=== PATIENT | male | born 1935 | race Asian ===

== ENCOUNTER 2016-08-05 12:38 | Inpatient (IN) | payer OTHER ==
--- NOTE | 2016-08-05 12:44 | PDOC ---
History of Present Illness - General History Source: Patient Exam Limitations: No Limitations - History of Present Illness Initial Comments: 08/05/16 14:58 The patient is a 80-year-old male, with a significant past medical history of s/ p TURP, who presents to the emergency department with abdominal pain, shortness of breath, and s/p syncope. The patient reports that the abdominal pain radiates to the chest. He describes the abdominal pain as something pushing up against his chest. He reports pain with deep inspiration accompanying his shortness of breath. He reports loss of consciousness associated with his syncopal episode. He also reports generalized weakness, chills, nausea, and rhinorrhea. He reports he has not urinated since the catheter was removed s/p TURP. He states he has not had a bowel movement for multiple days. The patient denies palpitations and headache. The patient denies fever, chills, nausea, vomit, diarrhea and constipation. The patient denies leg pain. Allergies: NKDA Past surgical history: TURP (under general anesthesia) 2017, CABG 2008 Social history: Denies smoking, ETOH, or substance use. PMD - Dr. Albin Huitron <Lulu Quiles - Last Filed: 08/05/16 14:58> <Prince Sylvester - Last Filed: 08/05/16 18:12> - General Stated Complaint: ABD PAIN Past History <Lulu Quiles - Last Filed: 08/05/16 14:58> <Prince Sylvester - Last Filed: 08/05/16 18:12> - Past Medical History Allergies/Adverse Reactions: Allergies Allergy/AdvReac Type Severity Reaction Status Date / Time No Known Allergies Allergy Verified 08/05/16 12:46 Home Medications: Ambulatory Orders Unobtainable [Unobtainable] 08/05/16 Review of Systems - Review of Systems Able to Perform ROS?: Yes Comments:: 08/05/16 14:59 CONSTITUTIONAL: Present: (+) generalized weakness, (+) chills Absent: fever, diaphoresis, malaise, loss of appetite HEENT: Present:(+) rhinorrhea Absent: nasal congestion, throat pain, throat swelling, difficulty swallowing, mouth swelling, ear pain, eye pain, visual changes CARDIOVASCULAR: Present: (+) syncope Absent: chest pain, palpitations, irregular heart rate, lightheadedness, peripheral edema RESPIRATORY: Present: (+) shortness of breath Absent: cough, dyspnea with exertion, orthopnea, wheezing, stridor, hemoptysis GASTROINTESTINAL: Present:(+)abdominal pain, (+)nausea Absent: abdominal distension, vomiting, diarrhea, constipation, melena, hematochezia GENITOURINARY: Absent: dysuria, frequency, urgency, hesitancy, hematuria, flank pain, genital pain MUSCULOSKELETAL: Absent: myalgia, arthralgia, joint swelling SKIN: Absent: rash, itching, pallor HEMATOLOGIC/IMMUNOLOGIC: Absent: easy bleeding, easy bruising, lymphadenopathy, frequent infections ENDOCRINE: Absent: unexplained weight gain, unexplained weight loss, heat intolerance, cold intolerance NEUROLOGIC: Absent: headache, focal weakness or paresthesias, dizziness, unsteady gait, seizure, bladder or bowel incontinence PSYCHIATRIC: Absent: anxiety, depression, suicidal or homicidal ideation, hallucinations. <QuilesLulu - Last Filed: 08/05/16 14:58> *Physical Exam - Vital Signs Last Vital Signs Temp Pulse Resp BP Pulse Ox 100 F H 74 20 148/62 100 08/05/16 12:43 08/05/16 12:43 08/05/16 12:43 08/05/16 12:43 08/05/16 12:58 - Physical Exam Comments: 08/05/16 14:59 GENERAL: Well developed, well nourished. Awake and alert. In no acute distress. HEENT: Normocephalic, atraumatic. PERRLA, EOMI. No conjunctival pallor. Sclera are non- icteric. Moist mucous membranes. Oropharynx is clear. NECK: Supple. Full ROM. No JVD. Carotid pulses 2+ and symmetric, without bruits. No thyromegaly. No lymphadenopathy. CARDIOVASCULAR: Regular rate and rhythm. No murmurs, rubs, or gallops. Distal pulses are 2+ and symmetric. PULMONARY: (+)Rales bilaterally. No wheezing or rhonchi. ABDOMINAL: (+) Some bladder distension up to the umbilicus. Soft. Non-tender. No rebound or guarding. No organomegaly. Normoactive bowel sounds. MUSCULOSKELETAL Normal range of motion at all joints. No bony deformities or tenderness. No CVA tenderness. EXTREMITIES: (+) No clinical DVT in legs. No redness, cords, asymmetry. No cyanosis. No clubbing. No peripheral edema. No calf tenderness. SKIN: Warm and dry. Normal capillary refill. No rashes. No jaundice. NEUROLOGICAL: Alert, awake, appropriate. Cranial nerves 2-12 intact. No deficits to light touch and temperature in face, upper extremities and lower extremities. No motor deficits in the in face, upper extremities and lower extremities. Normoreflexic in the upper and lower extremities. Normal speech. Toes are downgoing bilaterally. Gait is normal without ataxia. PSYCHIATRIC: Cooperative. Good eye contact. Appropriate mood and affect. <Gaby Quilesnda - Last Filed: 08/05/16 14:58> ED Treatment Course - LABORATORY CBC & Chemistry Diagram: 08/05/16 13:30 08/05/16 13:30 - ADDITIONAL ORDERS Additional order review: Laboratory Results 08/05/16 08/05/16 13:30 13:30 D-Dimer 565 H Sodium 135 L Potassium 4.2 Chloride 98 Carbon Dioxide 24 Anion Gap 13 BUN 29 H Creatinine 2.0 H Creat Clearance w eGFR 32.23 Random Glucose 321 H* Calcium 7.9 L Total Bilirubin 0.7 AST 25 ALT 27 Alkaline Phosphatase 172 H Creatine Kinase 104 Troponin I 0.05 B-Natriuretic Peptide 76727.21 H Total Protein 6.1 L Albumin 2.8 L 08/05/16 13:30 RBC 3.38 L MCV 93.3 MCHC 33.2 RDW 13.2 MPV 9.5 Neutrophils % 85.8 H Lymphocytes % 7.8 L Monocytes % 5.4 Eosinophils % 0.3 Basophils % 0.7 - RADIOLOGY Radiograph Interpretation: 08/05/16 15:06 RAD/CHEST X-RAY PORTABLE Reviewed by: Dr. Prince Sylvester Interpreted by: Dr. Orin Del Cid IMPRESSION: Right lower lobe infiltrate and pleural effusion. Mild increased density in the left lower lobe whihc may reflect infiltrate. - Medications Given in the ED: ED Medications Discontinued Medications Generic Name Dose Route Start Last Admin Trade Name Freq PRN Reason Stop Dose Admin Acetaminophen 650 mg 08/05/16 13:39 08/05/16 13:40 Tylenol - PO 08/05/16 13:40 650 mg NOW ONE Administration <Gaby Quilesnda - Last Filed: 08/05/16 14:58> - LABORATORY CBC & Chemistry Diagram: 08/05/16 13:30 08/05/16 13:30 <Prince Sylvester - Last Filed: 08/05/16 18:12> *DC/Admit/Observation/Transfer - Attestations Scribe Attestion: 08/05/16 15:00 Documentation prepared by Lulu Quiles, acting as medical imaging specialist for Prince Sylvester MD. <Lulu Quiles - Last Filed: 08/05/16 14:58> - Discharge Dispostion Admit: Yes <Prince Sylvester - Last Filed: 08/05/16 18:12> Diagnosis at time of Disposition: Pulmonary embolism, UTI (urinary tract infection), Pneumonia - Discharge Dispostion Condition at time of disposition: Stable - Referrals Referrals: Albin Huitron MD, MD [Primary Care Provider] -
[2016-08-05 12:46] VITALS: BMI 29.0
[2016-08-05] MEDS ORDERED: ACETAMINOPHEN 325 MG TABLET (FP) ONE (13:24)
[2016-08-05] MEDS ORDERED: ACETAMINOPHEN 325 MG TABLET (FP) PO ONE (13:39)
[2016-08-05 13:46] LABS: BASOPHIL 0.7 % (0-2.0); EOSINOPHIL 0.3 % (0-4.5); MCH 30.9 pg (25.7-33.7); MCHC 33.2 g/dl (32.0-35.9); MEAN CELL VOLUME 93.3 fl (80-96); MEAN PLT VOLUME 9.5 fl (7.5-11.1); NEUTROPHILS 85.8 % (42.8-82.8); PLATELET COUNT 254 K/MM3 (134-434); RDW 13.2 % (11.9-15.9); WHITE BLOOD COUNT 14.3 K/mm3 (4.0-10.0)
[2016-08-05 14:05] LABS: ALBUMIN 2.8 g/dl (3.4-5.0); BILIRUBIN,TOTAL 0.7 mg/dL (0.2-1.0); CALCIUM 7.9 mg/dL (8.5-10.1); TOT PROT 6.1 g/dl (6.4-8.2)
[2016-08-05 14:07] LABS: TROPONIN I 0.05 ng/ml (0.00-0.05)
[2016-08-05] MEDS ORDERED: CEFTRIAXONE 1,000 MG in DEXTROSE 5%-WATER - 50 ML IVPB ONE (14:35)
[2016-08-05] MEDS ORDERED: AZITHROMYCIN IVPB 500 MG in DEXTROSE 5%-WATER - 250 ML IVPB ONE (14:35)
[2016-08-05] MEDS ORDERED: AZITHROMYCIN IVPB 250 ML IVPB ONE (14:50)
[2016-08-05] MEDS ORDERED: CEFTRIAXONE 50 ML ONE (14:50)
[2016-08-05 15:21] LABS: URINE APPEARANCE SLCLOUDY; URINE BILIRUBIN NEGATIVE (NEGATIVE); URINE BLOOD 3+ (NEGATIVE); URINE COLOR DKYELLOW; URINE GLUCOSE (UA) 3+ (NEGATIVE); URINE KETONE NEGATIVE (NEGATIVE); URINE LEUK ESTERASE 3+ (NEGATIVE); URINE NITRITE NEGATIVE (NEGATIVE); URINE PROTEIN 2+ (NEGATIVE); URINE UROBILINOGEN 4.0 E.U/dl E.U./dl (0.2-1.0)
[2016-08-05 15:28] LABS: URINE HYALINE CAST 27 /lpf; URINE RBC 876 /hpf (0-3); URINE WBC 225 /hpf (3-5)
[2016-08-05] MEDS ORDERED: ENOXAPARIN NA (PORCINE) 80 MG/0.8 ML DISP.SYRIN SQ SCH (18:15)
[2016-08-05] MEDS ORDERED: ENOXAPARIN NA (PORCINE) 80 MG/0.8 ML DISP.SYRIN SQ ONE (18:19)
--- NOTE | 2016-08-05 19:33 | PN ---
<RadhikaTyreeTeresa - Last Filed: 08/05/16 19:32> Teaching Attending Note Name of Resident: Kassandra Crawley <Clara Kirby - Last Filed: 08/05/16 22:22> Teaching Attending Note ATTENDING PHYSICIAN STATEMENT I saw and evaluated the patient. I reviewed the resident's note and discussed the case with the resident. I agree with the resident's findings and plan as documented. SUBJECTIVE: Patient is a 80 year old male complaining of abdominal pain, SOB, and syncope. The patient reports the abdominal pain is localized to the epigastric region and radiates toward the chest. He also notes associated orthopnea. The patient also notes pain upon deep inspiration. He reports LOC associated with syncopal episode but denies any head or neck pain/injury. He states that he hasnt urinated since his catheter was removed s/p TURP. The patient states that his belly feels bloated and he has been gaseous recently. Patient endorses constipation for the past 6 days with generalized weakness, chills and nausea. The patient denies lower extremity edema. PMHx: diabetes Surgical Hx: s/p TURP, CABG Social Hx: Former heavy smoker OBJECTIVE: Physical: Last Vital Signs Temp Pulse Resp BP Pulse Ox 100 F H 74 20 148/62 100 08/05/16 12:43 08/05/16 12:43 08/05/16 12:43 08/05/16 12:43 08/05/16 12:58 GENERAL: Awake, alert, and fully oriented, in no acute distress HEENT: Atraumatic. PERRLA, EOMI. Moist mucosa. No JVD LUNGS: + bibasal crackles. No distress, speaks full sentences, clear to auscultation bilaterally HEART: Regular rate and rhythm, normal S1 and S2, no murmurs, rubs or gallops, peripheral pulses normal and equal bilaterally. ABDOMEN: Soft, nontender, normoactive bowel sounds. No guarding, no rebound. No masses. No ascites. EXTREMITIES: Normal inspection, Normal range of motion, no peripheral edema. No clubbing or cyanosis. NEUROLOGICAL: Cranial nerves II through XII grossly intact. Normal speech, normal gait, no focal sensorimotor deficits SKIN: Warm, Dry, normal turgor, no rashes or lesions noted. CBCD WBC 14.3 K/mm3 (4.0-10.0) H 08/05/16 13:30 RBC 3.38 M/mm3 (4.00-5.60) L 08/05/16 13:30 Hgb 10.5 GM/dL (11.7-16.9) L 08/05/16 13:30 Hct 31.5 % (35.4-49) L 08/05/16 13:30 MCV 93.3 fl (80-96) 08/05/16 13:30 MCHC 33.2 g/dl (32.0-35.9) 08/05/16 13:30 RDW 13.2 % (11.9-15.9) 08/05/16 13:30 Plt Count 254 K/MM3 (134-434) 08/05/16 13:30 MPV 9.5 fl (7.5-11.1) 08/05/16 13:30 CMP Sodium 135 mmol/L (136-145) L 08/05/16 13:30 Potassium 4.2 mmol/L (3.5-5.1) 08/05/16 13:30 Chloride 98 mmol/L (98-107) 08/05/16 13:30 Carbon Dioxide 24 mmol/L (21-32) 08/05/16 13:30 Anion Gap 13 (8-16) 08/05/16 13:30 BUN 29 mg/dL (7-18) H 08/05/16 13:30 Creatinine 2.0 mg/dL (0.7-1.3) H 08/05/16 13:30 Creat Clearance w eGFR 32.23 (>60) 08/05/16 13:30 Calcium 7.9 mg/dL (8.5-10.1) L 08/05/16 13:30 Total Bilirubin 0.7 mg/dL (0.2-1.0) 08/05/16 13:30 AST 25 U/L (15-37) 08/05/16 13:30 ALT 27 U/L (12-78) 08/05/16 13:30 Alkaline Phosphatase 172 U/L (45-117) H 08/05/16 13:30 Total Protein 6.1 g/dl (6.4-8.2) L 08/05/16 13:30 Albumin 2.8 g/dl (3.4-5.0) L 08/05/16 13:30 IMAGING: Chest X-Ray Impression: Right lower lobe infiltrate and pleural effusion. Mild increased density in the left lower lobe which may reflect infiltrate. ASSESSMENT AND PLAN: Patient is a 80 year old male presenting with 1.) Syncopal episode r/o vasovagal vs arrhythmia - Admitted to Tele - Continue cardiac monitoring - Orthostatic 2.) Newly diagnosed CHF with decompensation, possible cardiorenal -Lasix 40 mg IV push BID -Echo -Cardiology consult -Get lipids -Trend troponins -Monitor Is and Os 3.) UTI s/p TURP -Ceftriaxone -Repeat CBC in AM -Tylenol pPRN for fever -Follow urine cultures 4.) Community acquired pneumonia -Continue ceftriaxone -Add azithromycin -Nebulizations Q6 hrs -O2 2 L via nasal cannula -Follow blood cultures 5.) Diabetes -ADA diet -Continue lantix 40 units QHS -RISS 6.) BPH -Continue flomax .4 mg daily Documentation prepared by Clara Kirby, acting as claim review medical director for Teresa Garrido MD.
--- NOTE | 2016-08-05 22:04 | HP ---
Addendum entered and electronically signed by Kassandra Crawley, RES 08/06/16 07 :12: Added patients home med Amiodarone 200mg PO Daily. Discussed with Dr. Garrido. Original Note: CHIEF COMPLAINT: SOB x 1 day PCP: Dr. Lelo Dunn (Extension Associate [phone]) HISTORY OF PRESENT ILLNESS: 80 year old male was brought in by the EMS with the complaints of difficulty in breathing x 1 day. SOB started suddenly, was progressively getting worse, associated with chest discomfort but no pain, aggravated by sleeping towards the right side, relieved by sitting up. Dry cough on/off. Denies palpitation. Patient had TURP done [address] Daniels at the outpatient clinic under General anesthesia. After the procedure, on the way home, he started feeling cold associated with chills and shivering, high grade temperature (not recorded) , took 2 tylenol, lots of fluids and fever subsided. Today, patient went to the clinic for removal of catheter. After reaching home, started having SOB and called 911. Denies urinary symptoms like burning urination, urgency, frequency or incontinence. Patient also complaints of not moving bowels since 6 days, bloating of abdomen, abdominal discomfort. Also feeling weak and tired. Denies abdominal pain, nausea or vomiting. Patient states he had two of his tooth extracted on the June,. Since then he has been only eating mostly puree/thick food. No h/o recent travel or sick contacts. 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 please confirm with the pharmacy 1. Aspirin 81mg 2. Omeprazole 20mg Daily 3. Tamsulocin 4mg Daily 4. Amiodarone 200mg Daily 5. Carbamazepine Stopped last month 6. Lantus 40U Medication Instructions Recorded Unobtainable [Unobtainable] 08/05/16 REVIEW OF SYSTEMS CONSTITUTIONAL: Present: Fever , generalized weakness Absent: fever, chills, diaphoresis, malaise, loss of appetite, weight change HEENT: Absent: rhinorrhea, nasal congestion, throat pain, throat swelling, difficulty swallowing, mouth swelling, ear pain, eye pain, visual changes CARDIOVASCULAR: Absent: chest pain, syncope, palpitations, irregular heart rate, lightheadedness , peripheral edema RESPIRATORY: Present: shortness of breath Absent: cough, dyspnea with exertion, orthopnea, wheezing, stridor, hemoptysis GASTROINTESTINAL: Present: abdominal distension, abdominal discomfort Absent: abdominal pain, nausea, vomiting, diarrhea, constipation, melena, hematochezia GENITOURINARY: Absent: dysuria, frequency, urgency, hesitancy, hematuria, flank pain, genital pain MUSCULOSKELETAL: Absent: myalgia, arthralgia, joint swelling, back pain, neck pain SKIN: Absent: rash, itching, pallor HEMATOLOGIC/IMMUNOLOGIC: Absent: easy bleeding, easy bruising, lymphadenopathy, frequent infections ENDOCRINE: Absent: unexplained weight gain, unexplained weight loss, heat intolerance, cold intolerance NEUROLOGIC: Absent: headache, focal weakness or paresthesias, dizziness, unsteady gait, seizure, mental status changes, bladder or bowel incontinence PSYCHIATRIC: Absent: anxiety, depression, suicidal or homicidal ideation, hallucinations. PHYSICAL EXAMINATION Vital Signs - 24 hr 08/05/16 19:41 Temperature 98.3 F Pulse Rate [ 87 Left Radial] Respiratory 20 Rate Blood Pressure 135/80 [Left Arm] O2 Sat by Pulse 98 Oximetry (%) GENERAL: Patient lying comfortably in bed, Awake, alert, and fully oriented, in no acute distress. HEAD: Normal with no signs of trauma. EYES: EOM intact, mild icterus +, no pallor EARS, NOSE, THROAT: Ears normal, Moist mucous membranes. NECK: Supple, no mass. LUNGS: Breath sounds equal, bibasilar crackles +, no wheeze. HEART: Regular rate and rhythm, normal S1 and S2 without murmur. ABDOMEN: Soft, nontender, not distended, normoactive bowel sounds, no guarding, no rebound, no masses. No hepatomegaly or splenomegaly. MUSCULOSKELETAL: Normal range of motion at all joints. No bony deformities or tenderness. No CVA tenderness. UPPER EXTREMITIES: 2+ pulses, warm, well-perfused. No cyanosis. No clubbing. No peripheral edema. LOWER EXTREMITIES: 2+ pulses, warm, well-perfused. No calf tenderness. No peripheral edema. NEUROLOGICAL: Cranial nerves II-XII intact. Normal speech. Gait not observed. PSYCHIATRIC: Cooperative. Good eye contact. Appropriate mood and affect. SKIN: Looks yellowish, Warm, dry, normal turgor, no rashes or lesions noted. CXR 08/05/2016: Right lower lobe infiltrate and pleural effusion. Mild increased density in the left lower lobe which may reflect infiltrate. ASSESSMENT/PLAN: 80 year old male with significant PMHx of BPH s/p TURP, 08/03/2016, DM II, CAD s/ p CABG 2 stents, peripheral neuropathy, arrhythmia (unknown) s/p B/L cataract removal was brought in by the EMS with the complaints of difficulty in breathing x 1 day. # Shortenss of breath- most likely Community Acquired Pneumonia 2days H/O fever (not recorded), rigors+ cough on/off dry On admission T-100F, sat-96 on RA CXR report showing RLL/LLL infiltrate with Right lower pleural effusion In the ED, was given Tylenol, Ceftriaxone 1gm, Azithromycin, Enoxaparin. Enoxaparin was started with the suspicion of Pulmonary Embolism. Although D-dimer is elevated, Pulmonary Embolism less likely. Patient has normal HR, EKG: No sinus tachycardia, No S1Q3T3 pattern. CTA to R/O pulmonary embolism cannot be done since his creatinine is 2.0, Started on IV Ceftriaxone 1gm and Azithromycin 500mg PO Repeat CBC, CMP, CXR ordered for tomorrow Urine/Blood culture pending Nasal Oxygen PRN Nasopharyngeal swab for influenza ordered, please f/up # Acute Kidney Injury vs CHF On admission, patients creatinine is 2.0, do not know his baseline Echo ordered to r/o CHF BNP 63338.21 Corrected Calcium 8.86 Repeat CMP Avoid Nephrotoxic drugs # Asymptomatic Urinary Tract Infection No urinary symptoms UA: 3+ blood, RBC 876, WBC-225 H/O recent TURP # Diabetes Mellitus On admission, RBG-321 Lantus 40U continued. Insulin sliding scale added. HbA1c ordered Diabetic diet/counseling Monitor for hypoglycemic symptoms # Peripheral Neuropathy Patient mentioned he was taking Carbamazipine until one month ago then stopped by the doctor # Arrhythmia Patient taking amiodarone 200mg, for missed beat as per the patient Please confirm with the pharmacy tomorrow. Will not start amiodarone until confirmed with the primary doctor or the pharmacy. # BPH s/p TURP Catheter removed today, no urinary symptoms Continue Flomax 0.4mg Daily Monitor urine output. # CAD s/p CABG x 2 stents Aspirin 81mg continued Consider adding statins # Constipation Hasn't moved bowel since 6days; has abdominal discomfort and bloating Colace and Senna ordered. # FEN Not on IV fluids Electrolytes to be repeated tomorrow Diabetic/Sodium controlled diet # Prophylaxis For DVT- On Lovenox For GI- Pantoprazole 20mg Daily # Dispo: Do not know the duration of hospital stay at this time Illness, Investigation and Plan of care explained to the patient and his . They verbalized understanding. Case seen and discussed with Dr. Garrido. Visit type - Emergency Visit Emergency Visit: Yes ED Registration Date: 08/05/16 Care time: The patient presented to the Emergency Department on the above date and was hospitalized for further evaluation of their emergent condition. - New Patient This patient is new to me today: Yes Date on this admission: 08/06/16 - Critical Care Critical Care patient: No
[2016-08-05] MEDS: ASPIRIN 81 MG CHEWABLE TABLETS PO SCH (22:13)
[2016-08-05] MEDS: PANTOPRAZOLE 20 MG TABLET (FP) PO SCH (22:13)
[2016-08-05] MEDS: INSULIN DETEMIR 100 UNITS/ML MDV SQ SCH (22:13)
[2016-08-05] MEDS: DOCUSATE SODIUM 100 MG CAPSULE (FP) PO PRN (22:13)
[2016-08-05] MEDS: SENNOSIDES 8.6MG TABLET (FP) PO SCH (22:13)
[2016-08-05] MEDS: ALBUTEROL SO4 2.5/IPRATROPIUM 0.5 INH SOL 3 ML VIAL.NEB. NEB PRN (22:20)
[2016-08-05] MEDS: ACETAMINOPHEN 500 MG TABLET (FP) PO PRN (23:02)
[2016-08-06] MEDS: INSULIN SLIDING SCALE (NOVOLOG) 1 VIAL SQ SCH ×2 (06:01→17:04)
[2016-08-06 08:12] LABS: MCH 31.1 pg (25.7-33.7); MCHC 33.7 g/dl (32.0-35.9); MEAN CELL VOLUME 92.4 fl (80-96); MEAN PLT VOLUME 9.4 fl (7.5-11.1); PLATELET COUNT 268 K/MM3 (134-434); RDW 13.1 % (11.9-15.9); WHITE BLOOD COUNT 11.6 K/mm3 (4.0-10.0)
[2016-08-06] MEDS: AMIODARONE HCL 200 MG TABLET (FP) PO SCH (09:04)
[2016-08-06] MEDS: TAMSULOSIN HCL 0.4 MG CAP.ER.24H (FP) PO SCH (09:04)
[2016-08-06] MEDS: CEFTRIAXONE 50 ML IVPB SCH (09:04)
[2016-08-06] MEDS: PANTOPRAZOLE 20 MG TABLET (FP) PO SCH (09:04)
[2016-08-06] MEDS: ASPIRIN 81 MG CHEWABLE TABLETS PO SCH (09:04)
[2016-08-06] MEDS: ACETAMINOPHEN 500 MG TABLET (FP) PO PRN ×2 (09:05→21:46)
[2016-08-06] MEDS: DOCUSATE SODIUM 100 MG CAPSULE (FP) PO PRN ×2 (09:05→21:42)
[2016-08-06] MEDS: AZITHROMYCIN 250 MG TABLET (FP) PO SCH (09:05)
--- NOTE | 2016-08-06 10:24 | PN ---
Progress Note (short form) - Note Progress Note: c/o RAMIREZ that started this morning after he woke up. severe dyspnea he states improved. admits to orthopnea but only since yesterday. which has also improved. Had TURP 3 days ago with kern in place which was removed yesterday. continues to have some hematuria but denies gross blood or clots. was told he would have bleeding for several weeks. on questioning about syncope he denies any syncopal episode. states his baseline Cr 1.5. has scheduled echo for August 24. denies CP, cough, fever, chills, N/V/C/D, dysuria Current Medications Generic Name Dose Route Start Last Admin Trade Name Freq PRN Reason Stop Dose Admin Acetaminophen 500 mg 08/05/16 21:40 08/06/16 09:05 Tylenol - PO 500 mg Q6H PRN Administration FEVER OR PAIN Albuterol/Ipratropium 1 amp 08/05/16 22:10 08/05/16 22:20 Duoneb - NEB 1 amp Q6H PRN Administration SHORTNESS OF BREATH Amiodarone HCl 200 mg 08/06/16 10:00 08/06/16 09:04 Cordarone - PO 200 mg DAILY JONAS Administration Aspirin 81 mg 08/05/16 21:15 08/06/16 09:04 Asa - PO 81 mg DAILY JONAS Administration Azithromycin 500 mg 08/06/16 10:00 08/06/16 09:05 Zithromax - PO 500 mg DAILY JONAS Administration Docusate Sodium 100 mg 08/05/16 21:06 08/06/16 09:05 Colace - PO 100 mg BID PRN Administration CONSTIPATION Enoxaparin Sodium 80 mg 08/05/16 18:15 08/05/16 18:22 Lovenox - SQ 80 mg ONCE JONAS Administration Ceftriaxone Sodium 50 mls @ 100 mls/hr 08/06/16 10:00 08/06/16 09:04 Rocephin 1gm Ivpb (Pre-Docked) IVPB 100 mls/hr DAILY JONAS Administration Insulin Aspart 1 vial 08/06/16 07:00 08/06/16 06:01 Novolog Vial Sliding Scale - SQ 2 units BIDAC JONAS Administration Protocol Insulin Detemir 40 units 08/05/16 22:00 08/05/16 22:13 Levemir Vial SQ 40 units HS JONAS Administration Ondansetron HCl 4 mg 08/05/16 21:41 Zofran - PO Q8H PRN NAUSEA AND/OR VOMITING Pantoprazole Sodium 20 mg 08/05/16 21:15 08/06/16 09:04 Protonix - PO 20 mg DAILY JONAS Administration Senna 1 tab 08/05/16 22:00 08/05/16 22:13 Senna - PO 1 tab HS JONAS Administration Tamsulosin HCl 0.4 mg 08/06/16 08:30 08/06/16 09:04 Flomax - PO 0.4 mg DAILY@0830 JONAS Administration Last Vital Signs Temp Pulse Resp BP Pulse Ox 98.4 F 85 16 127/55 98 08/06/16 06:00 08/06/16 06:00 08/06/16 06:00 08/06/16 06:00 08/05/16 21:00 General NAD CV S1 S2 RRR no murmur/rub/gallop Lungs decreased breath sounds R base. no wheezing or rales ABdomen soft NT/ND no suprapubic tenderness CBCD WBC 11.6 K/mm3 (4.0-10.0) H 08/06/16 05:35 RBC 3.12 M/mm3 (4.00-5.60) L 08/06/16 05:35 Hgb 9.7 GM/dL (11.7-16.9) L 08/06/16 05:35 Hct 28.8 % (35.4-49) L 08/06/16 05:35 MCV 92.4 fl (80-96) 08/06/16 05:35 MCHC 33.7 g/dl (32.0-35.9) 08/06/16 05:35 RDW 13.1 % (11.9-15.9) 08/06/16 05:35 Plt Count 268 K/MM3 (134-434) 08/06/16 05:35 MPV 9.4 fl (7.5-11.1) 08/06/16 05:35 CMP Sodium 135 mmol/L (136-145) L 08/05/16 13:30 Potassium 4.2 mmol/L (3.5-5.1) 08/05/16 13:30 Chloride 98 mmol/L (98-107) 08/05/16 13:30 Carbon Dioxide 24 mmol/L (21-32) 08/05/16 13:30 Anion Gap 13 (8-16) 08/05/16 13:30 BUN 29 mg/dL (7-18) H 08/05/16 13:30 Creatinine 2.0 mg/dL (0.7-1.3) H 08/05/16 13:30 Creat Clearance w eGFR 32.23 (>60) 08/05/16 13:30 Random Glucose 321 mg/dL (74-106) H* 08/05/16 13:30 Calcium 7.9 mg/dL (8.5-10.1) L 08/05/16 13:30 Total Bilirubin 0.7 mg/dL (0.2-1.0) 08/05/16 13:30 AST 25 U/L (15-37) 08/05/16 13:30 ALT 27 U/L (12-78) 08/05/16 13:30 Alkaline Phosphatase 172 U/L (45-117) H 08/05/16 13:30 Total Protein 6.1 g/dl (6.4-8.2) L 08/05/16 13:30 Albumin 2.8 g/dl (3.4-5.0) L 08/05/16 13:30 CARDIAC ENZYMES Creatine Kinase 104 IU/L (39-308) 08/05/16 13:30 Troponin I 0.05 ng/ml (0.00-0.05) 08/05/16 13:30 A/P 80yo M with PMH DM, CAD s/p CABG, DM, BPH s/p TURP, came to the ER and was admitted 1. CAP- concern for PE in the ED and was given lovenox. low PERC score. will hold off further workup for PE at this time. saturating 97% on RA. on ceftriaxone and Azithromycin day 2. Cx pending. 2, UTI- likely due to recent procedure and prolonged catheter use. on ceftriaxone. awaiting UCx 3. Acute microcytic anemia- likely due to recent procedure. instructed to monitor for worsening hematuria and notify if passing clots. will monitor closely. no need for txn at this time. will monitor. hold blood thinners 4. Syncope?- no reports of syncope. no further workup indicated 5. CHF- pt had 1 day of orthopnea which can be related to B/L PNA. BNP can be falsely elevated in setting of OSWALDO. no crackles or other signs of volume overload. trace pleural effusion. will hold lasix at this time. 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 has one scheduled for 2 weeks from now. believe echo can be held until scheduled appointment. no emergent need for echo 6. acute on CKD- possible due to infection. repeat Cr function pending. avoid nephrotoxic agents 7. DM- cont home medications. iss, bgm 8. BPH- flomax 9. CAD s/p CABG- cardiac markers neg x1. will obtain 2nd set. although low suspicion for acs. cont asa, amio 10. dvt ppx- SCD, EAM. will hold a/c at this time Visit type - Emergency Visit Emergency Visit: Yes ED Registration Date: 08/05/16 Care time: The patient presented to the Emergency Department on the above date and was hospitalized for further evaluation of their emergent condition. - New Patient This patient is new to me today: Yes Date on this admission: 08/06/16 - Critical Care Critical Care patient: No - Discharge Referral Referred to [facility] No
[2016-08-06 11:40] LABS: ALBUMIN 2.5 g/dl (3.4-5.0); BILIRUBIN,TOTAL 0.8 mg/dL (0.2-1.0); CALCIUM 8.2 mg/dL (8.5-10.1); CREATININE 1.8 mg/dL (0.7-1.3); TOT PROT 5.8 g/dl (6.4-8.2)
--- NOTE | 2016-08-06 11:46 | CONSULT ---
Consult Consult Specialty:: PULMONARY Referred by:: GENA Reason for Consultation:: SOB - History of Present Illness Chief Complaint: SOB History of Present Illness: The patient is a 80-year-old male, with a significant past medical history of s/ p TURP, who presents to the emergency department with abdominal pain, shortness of breath, and s/p syncope. The patient reports that the abdominal pain radiates to the chest. He describes the abdominal pain as something pushing up against his chest. He reports pain with deep inspiration accompanying his shortness of breath. He reports loss of consciousness associated with his syncopal episode. He also reports generalized weakness, chills, nausea, and rhinorrhea. He reports he has not urinated since the catheter was removed s/p TURP. He states he has not had a bowel movement for multiple days. The patient denies palpitations and headache. The patient denies fever, chills, nausea, vomit, diarrhea and constipation. The patient denies leg pain. 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 No: Alzheimer's, CVA, Dementia Cardio/Vascular: Yes: CAD, Other (CABG/PCI STENT 2). No: AFIB Pulmonary: No: COPD Gastrointestinal: Yes: Other (ABD PAIN). No: Cancer Hepatobiliary: No: Cirrhosis Renal/: Yes: BPH, UTI Endocrine: Yes: Diabetes Mellitus - Past Surgical History Past Surgical History: Yes: CABG, TURP Additional Surgical History: PCI STENT - Alcohol/Substance Use Hx Alcohol Use: No History of Substance Use: reports: None - Smoking History Smoking history: Never smoked - Social History ADL: Independent Place of : Other History of Recent Travel: No Home Medications - Allergies Allergies/Adverse Reactions: Allergies Allergy/AdvReac Type Severity Reaction Status Date / Time No Known Allergies Allergy Verified 08/05/16 12:46 - Home Medications Home Medications: Ambulatory Orders Unobtainable [Unobtainable] 08/05/16 Family Disease History - Family Disease History Family History: Unremarkable Review of Systems - Review of Systems Constitutional: reports: Fever, Lethargy Eyes: denies: Blind Spots HENT: denies: Difficult Swallowing Neck: denies: Decreased ROM Cardiovascular: reports: Chest Pain, Shortness of Breath Respiratory: reports: Cough, Exercise Intolerance. denies: Hemoptysis, Snoring , Wheezing Gastrointestinal: reports: Abdominal Pain Genitourinary: reports: Burning Breasts: reports: No Symptoms Reported Musculoskeletal: reports: Back Pain Neurological: reports: Syncope Endocrine: reports: No Symptoms Physical Exam Vital Sings: Vital Signs Temperature 98 F 08/06/16 10:00 Pulse Rate 72 08/06/16 10:00 Respiratory Rate 18 08/06/16 10:00 Blood Pressure 124/50 08/06/16 10:00 O2 Sat by Pulse Oximetry (%) 96 08/06/16 09:00 Constitutional: Yes: Calm Eyes: Yes: EOM Intact HENT: Yes: Normocephalic Neck: Yes: Trachea Midline Cardiovascular: Yes: Regular Rate and Rhythm, S1, S2 Respiratory: Yes: Rales (RIGHT BASE) Gastrointestinal: Yes: Abdomen, Obese Edema: No Integumentary: Yes: WNL Neurological: Yes: Alert, Oriented Labs: CBC, BMP 08/06/16 05:35 08/06/16 05:35 REST REVIEWED Imaging - Results Chest X-ray: Image Reviewed EKG: Report Reviewed Problem List - Problems (1) Pneumonia Code(s): J18.9 - PNEUMONIA, UNSPECIFIED ORGANISM (2) UTI (urinary tract infection) Code(s): N39.0 - URINARY TRACT INFECTION, SITE NOT SPECIFIED Assessment/Plan AGREE WITH LOW INDEX OF SUSPICION FOR PE MORE LIKELY RLL PNEUMONIA CONTRIBUTING TO MAJORITY OF SX AND RIGHT BACK PAIN PANCULTURE EMPIRIC ANTIBIOTICS/O2 SUPPLEMENTATION/BRONCHODILATORS DVT PROPHYLAXSIS IS SYMPTOMS PERSIST OR CLINICAL DETERIORATION WOULD THEN ORDER CTA WILL FOLLOW Deandra KRUGER MD
--- NOTE | 2016-08-06 16:29 | EKG ---
Test Reason : Blood Pressure : / mmHG Vent. Rate : 073 BPM Atrial Rate : 073 BPM P-R Int : 212 ms QRS Dur : 088 ms QT Int : 386 ms P-R-T Axes : -04 032 088 degrees QTc Int : 425 ms SINUS RHYTHM WITH 1ST DEGREE A-V BLOCK SEPTAL INFARCT , AGE UNDETERMINED ABNORMAL ECG NO PREVIOUS ECGS AVAILABLE Confirmed by BUFFY ALONZO MD ([id number]) on 08/06/2016 4:29:29 PM Referred By: Confirmed By:BUFFY ALONZO MD
[2016-08-06] MEDS ORDERED: INSULIN (NOVOLOG) ASPART 100 UNITS/ML 10ML VIAL ONE (16:59)
[2016-08-06] MEDS ORDERED: MAGNESIUM HYDROX 2400MG/30ML ORAL SUSPENSION 30 ML CUP PO ONE (18:45)
[2016-08-06] MEDS ORDERED: POLYETHYLENE GLYCOL 3350 119 GM BTL PO ONE (20:52)
[2016-08-06] MEDS: INSULIN DETEMIR 100 UNITS/ML MDV SQ SCH (21:42)
[2016-08-06] MEDS: SENNOSIDES 8.6MG TABLET (FP) PO SCH (21:42)
[2016-08-06] MEDS: ALBUTEROL SO4 2.5/IPRATROPIUM 0.5 INH SOL 3 ML VIAL.NEB. NEB PRN (22:20)
[2016-08-07] MEDS: INSULIN SLIDING SCALE (NOVOLOG) 1 VIAL SQ SCH ×3 (06:53→21:35)
[2016-08-07] MEDS: TAMSULOSIN HCL 0.4 MG CAP.ER.24H (FP) PO SCH (08:42)
[2016-08-07] MEDS: AMIODARONE HCL 200 MG TABLET (FP) PO SCH (09:00)
[2016-08-07] MEDS: PANTOPRAZOLE 20 MG TABLET (FP) PO SCH (09:00)
[2016-08-07] MEDS: AZITHROMYCIN 250 MG TABLET (FP) PO SCH (09:00)
[2016-08-07] MEDS: ASPIRIN 81 MG CHEWABLE TABLETS PO SCH (09:00)
[2016-08-07] MEDS: CEFTRIAXONE 50 ML IVPB SCH (09:01)
[2016-08-07] MEDS: ACETAMINOPHEN 500 MG TABLET (FP) PO PRN ×2 (09:15→16:29)
[2016-08-07 10:01] LABS: BASOPHIL 0.8 % (0-2.0); EOSINOPHIL 0.6 % (0-4.5); MCH 31.4 pg (25.7-33.7); MCHC 33.9 g/dl (32.0-35.9); MEAN CELL VOLUME 92.4 fl (80-96); NEUTROPHILS 77.5 % (42.8-82.8); PLATELET COUNT 267 K/MM3 (134-434); RDW 13.4 % (11.9-15.9); WHITE BLOOD COUNT 9.9 K/mm3 (4.0-10.0)
[2016-08-07 10:23] LABS: CALCIUM 8.2 mg/dL (8.5-10.1); CREATININE 1.7 mg/dL (0.7-1.3)
--- NOTE | 2016-08-07 11:52 | PN ---
Progress Note (short form) - Note Progress Note: c/o R rib pain that is relieved with tylenol. states he continues to have dyspnea but overall improved. denies CP, cough, fever, chills, N/V/C/D, dysuria Noted by RN that he became hypoxic to low 80's on RA Current Medications Generic Name Dose Route Start Last Admin Trade Name Freq PRN Reason Stop Dose Admin Acetaminophen 500 mg 08/05/16 21:40 08/07/16 09:15 Tylenol - PO 500 mg Q6H PRN Administration FEVER OR PAIN Albuterol/Ipratropium 1 amp 08/05/16 22:10 08/06/16 22:20 Duoneb - NEB 1 amp Q6H PRN Administration SHORTNESS OF BREATH Amiodarone HCl 200 mg 08/06/16 10:00 08/07/16 09:00 Cordarone - PO 200 mg DAILY JONAS Administration Aspirin 81 mg 08/05/16 21:15 08/07/16 09:00 Asa - PO 81 mg DAILY JONAS Administration Azithromycin 500 mg 08/06/16 10:00 08/07/16 09:00 Zithromax - PO 500 mg DAILY JONAS Administration Docusate Sodium 100 mg 08/05/16 21:06 08/06/16 21:42 Colace - PO 100 mg BID PRN Administration CONSTIPATION Ceftriaxone Sodium 50 mls @ 100 mls/hr 08/06/16 10:00 08/07/16 09:01 Rocephin 1gm Ivpb (Pre-Docked) IVPB 100 mls/hr DAILY JONAS Administration Insulin Aspart 1 vial 08/06/16 07:00 08/07/16 06:53 Novolog Vial Sliding Scale - SQ Not Given BIDAC [facility] Protocol Insulin Detemir 40 units 08/05/16 22:00 08/06/16 21:42 Levemir Vial SQ 40 units HS JONAS Administration Ondansetron HCl 4 mg 08/05/16 21:41 Zofran - PO Q8H PRN NAUSEA AND/OR VOMITING Pantoprazole Sodium 20 mg 08/05/16 21:15 08/07/16 09:00 Protonix - PO 20 mg DAILY JONAS Administration Senna 1 tab 08/05/16 22:00 08/06/16 21:42 Senna - PO 1 tab HS JONAS Administration Tamsulosin HCl 0.4 mg 08/06/16 08:30 08/07/16 08:42 Flomax - PO 0.4 mg DAILY@0830 JONAS Administration Last Vital Signs Temp Pulse Resp BP Pulse Ox 98.6 F 78 20 145/70 92 L 08/07/16 06:00 08/07/16 07:46 08/07/16 07:46 08/07/16 07:46 08/06/16 20:00 General NAD CV S1 S2 RRR no murmur/rub/gallop Lungs decreased breath sounds R base. no wheezing or rales ABdomen soft NT/ND no suprapubic tenderness CBCD WBC 9.9 K/mm3 (4.0-10.0) 08/07/16 09:25 RBC 3.08 M/mm3 (4.00-5.60) L 08/07/16 09:25 Hgb 9.7 GM/dL (11.7-16.9) L 08/07/16 09:25 Hct 28.5 % (35.4-49) L 08/07/16 09:25 MCV 92.4 fl (80-96) 08/07/16 09:25 MCHC 33.9 g/dl (32.0-35.9) 08/07/16 09:25 RDW 13.4 % (11.9-15.9) 08/07/16 09:25 Plt Count 267 K/MM3 (134-434) 08/07/16 09:25 MPV 9.0 fl (7.5-11.1) 08/07/16 09:25 CMP Sodium 136 mmol/L (136-145) 08/07/16 09:25 Potassium 4.1 mmol/L (3.5-5.1) 08/07/16 09:25 Chloride 101 mmol/L (98-107) 08/07/16 09:25 Carbon Dioxide 28 mmol/L (21-32) 08/07/16 09:25 Anion Gap 7 (8-16) L 08/07/16 09:25 BUN 29 mg/dL (7-18) H D 08/07/16 09:25 Creatinine 1.7 mg/dL (0.7-1.3) H 08/07/16 09:25 Creat Clearance w eGFR 36.39 (>60) 08/06/16 05:35 Calcium 8.2 mg/dL (8.5-10.1) L 08/07/16 09:25 Total Bilirubin 0.8 mg/dL (0.2-1.0) 08/06/16 05:35 AST 19 U/L (15-37) D 08/06/16 05:35 ALT 22 U/L (12-78) 08/06/16 05:35 Alkaline Phosphatase 144 U/L (45-117) H 08/06/16 05:35 Total Protein 5.8 g/dl (6.4-8.2) L 08/06/16 05:35 Albumin 2.5 g/dl (3.4-5.0) L 08/06/16 05:35 Microbiology 08/05/16 14:45 Urine Culture - Final Urine - Urine Clean Catch Contaminated: Please Repeat 08/05/16 22:45 Respiratory Virus Panel - Preliminary Nasopharyngeal Swab 08/05/16 15:00 Blood Culture - Preliminary Blood - Peripheral Venous NO GROWTH OBTAINED AFTER 24 HOURS, INCUBATION TO CONTINUE FOR 4 DAYS. 08/05/16 15:00 Blood Culture - Preliminary Blood - Peripheral Venous NO GROWTH OBTAINED AFTER 24 HOURS, INCUBATION TO CONTINUE FOR 4 DAYS. A/P 80yo M with PMH DM, CAD s/p CABG, DM, BPH s/p TURP, came to the ER and was admitted 1. CAP- clinically improved. desaturations. will order oxygen therapy for now, attempt to titrate off O2. will d/c azithromycin today after 3 day course. cont Ceftriaxone day 3. pulmonary on board. 2, UTI- UCx contaminate. will repeat as concerned with recent procedure. cont ceftriaxone. 3. Acute microcytic anemia- likely due to recent procedure. continues to have hematuria. Hgb stable. no indication on txn. 4. Constipation-given stool softeners and miralax. 2 BM last night. cont prn. 5. CHF- no clinical signs of volume overload. pt to have echo as outpatient. scheduled Aug 24. 6. acute on CKD- possible due to infection. tren ding down avoid nephrotoxic agents 7. DM- cont home medications. iss, bgm 8. BPH- flomax 9. CAD s/p CABG- . cont asa, amio 10. dvt ppx- SCD, Visit type - Emergency Visit Emergency Visit: Yes ED Registration Date: 08/05/16 Care time: The patient presented to the Emergency Department on the above date and was hospitalized for further evaluation of their emergent condition. - New Patient This patient is new to me today: No - Critical Care Critical Care patient: No - Discharge Referral Referred to [facility] No
--- NOTE | 2016-08-07 11:58 | PN ---
Progress Note (short form) - Note Progress Note: PULMONARY VSS/AFEBRILE MILD SUBJECTIVE IMPROVEMENT PALE/ANICTERIC RHONCHI RIGHT BASE S1S2 BS+ LESS EDEMA LABS/MEDS/NOTES/IMAGING REVIEWED RLL PNA MULTIPLE MEDICAL PROBLEMS LISTED AGREE WITH CURRENT MEDICAL REGIME NEEDS PT Deandra KRUGER MD Problem List - Problems (1) Pneumonia Code(s): J18.9 - PNEUMONIA, UNSPECIFIED ORGANISM (2) UTI (urinary tract infection) Code(s): N39.0 - URINARY TRACT INFECTION, SITE NOT SPECIFIED
[2016-08-07] MEDS: SENNOSIDES 8.6MG TABLET (FP) PO SCH (21:35)
[2016-08-07] MEDS: INSULIN DETEMIR 100 UNITS/ML MDV SQ SCH (21:35)
[2016-08-07] MEDS: ALBUTEROL SO4 2.5/IPRATROPIUM 0.5 INH SOL 3 ML VIAL.NEB. NEB PRN (22:41)
[2016-08-08] MEDS: INSULIN SLIDING SCALE (NOVOLOG) 1 VIAL SQ SCH ×4 (06:27→22:55)
[2016-08-08] MEDS: PANTOPRAZOLE 20 MG TABLET (FP) PO SCH (09:22)
[2016-08-08] MEDS: AMIODARONE HCL 200 MG TABLET (FP) PO SCH (09:22)
[2016-08-08] MEDS: ASPIRIN 81 MG CHEWABLE TABLETS PO SCH (09:22)
[2016-08-08] MEDS: CEFTRIAXONE 50 ML IVPB SCH (09:22)
[2016-08-08] MEDS: TAMSULOSIN HCL 0.4 MG CAP.ER.24H (FP) PO SCH (09:22)
--- NOTE | 2016-08-08 10:09 | PN ---
Progress Note, Physician History of Present Illness: pulmonary alert,feeling better, sob improving,-cp,less back pain - Current Medication List Current Medications: Active Medications Acetaminophen (Tylenol -) 500 mg PO Q6H PRN PRN Reason: FEVER OR PAIN Last Admin: 08/07/16 16:29 Dose: 500 mg Albuterol/Ipratropium (Duoneb -) 1 amp NEB Q6H PRN PRN Reason: SHORTNESS OF BREATH Last Admin: 08/07/16 22:41 Dose: 1 amp Amiodarone HCl (Cordarone -) 200 mg PO DAILY [facility] Last Admin: 08/08/16 09:22 Dose: 200 mg Aspirin (Asa -) 81 mg PO DAILY [facility] Last Admin: 08/08/16 09:22 Dose: 81 mg Docusate Sodium (Colace -) 100 mg PO BID PRN PRN Reason: CONSTIPATION Last Admin: 08/06/16 21:42 Dose: 100 mg Ceftriaxone Sodium (Rocephin 1gm Ivpb (Pre-Docked)) 50 mls @ 100 mls/hr IVPB DAILY [facility] Last Admin: 08/08/16 09:22 Dose: 100 mls/hr Insulin Aspart (Novolog Vial Sliding Scale -) 1 vial SQ ACHS [facility] PRN Reason: Protocol Last Admin: 08/08/16 06:27 Dose: 2 units Insulin Detemir (Levemir Vial) 40 units SQ HS [facility] Last Admin: 08/07/16 21:35 Dose: 40 units Ondansetron HCl (Zofran -) 4 mg PO Q8H PRN PRN Reason: NAUSEA AND/OR VOMITING Pantoprazole Sodium (Protonix -) 20 mg PO DAILY [facility] Last Admin: 08/08/16 09:22 Dose: 20 mg Senna (Senna -) 1 tab PO HS [facility] Last Admin: 08/07/16 21:35 Dose: 1 tab Tamsulosin HCl (Flomax -) 0.4 mg PO DAILY@0830 [facility] Last Admin: 08/08/16 09:22 Dose: 0.4 mg - Objective Vital Signs: Vital Signs Temperature 97.9 F 08/08/16 06:43 Pulse Rate 80 08/08/16 06:00 Respiratory Rate 18 08/08/16 06:00 Blood Pressure 104/67 08/08/16 06:00 O2 Sat by Pulse Oximetry (%) 94 L 08/07/16 21:00 Constitutional: Yes: Well Nourished, Calm Eyes: Yes: WNL HENT: Yes: WNL Neck: Yes: WNL Cardiovascular: Yes: Regular Rate and Rhythm, S1, S2 Respiratory: Yes: Rales (bibasilar crackles) Gastrointestinal: Yes: Normal Bowel Sounds, Soft Extremities: Yes: WNL Edema: No Labs: CBC, BMP Assessment/Plan Problem List - Problems (1) Pneumonia Code(s): J18.9 - PNEUMONIA, UNSPECIFIED ORGANISM (2) UTI (urinary tract infection) Code(s): N39.0 - URINARY TRACT INFECTION, SITE NOT SPECIFIED Assessment/Plan RLL PNEUMONIA CONTINUE ANTIBIOTICS O2 BRONCHODILATORS DVT PROPHYLAXIS CHEST X-RAY DR RUIZ
[2016-08-08] MEDS: ALBUTEROL SO4 2.5/IPRATROPIUM 0.5 INH SOL 3 ML VIAL.NEB. NEB PRN (10:34)
--- NOTE | 2016-08-08 15:30 | PN ---
Progress Note (short form) - Note Progress Note: c/o generalized weakness, states hes having difficulty ambulating to the bathroom but does not know if thats likely due to . denies CP, cough, fever, chills, N/V/C/D, dysuria Current Medications Generic Name Dose Route Start Last Admin Trade Name Freq PRN Reason Stop Dose Admin Acetaminophen 500 mg 08/05/16 21:40 08/07/16 16:29 Tylenol - PO 500 mg Q6H PRN Administration FEVER OR PAIN Albuterol/Ipratropium 1 amp 08/05/16 22:10 08/08/16 10:34 Duoneb - NEB 1 amp Q6H PRN Administration SHORTNESS OF BREATH Amiodarone HCl 200 mg 08/06/16 10:00 08/08/16 09:22 Cordarone - PO 200 mg DAILY JONAS Administration Aspirin 81 mg 08/05/16 21:15 08/08/16 09:22 Asa - PO 81 mg DAILY JONAS Administration Docusate Sodium 100 mg 08/05/16 21:06 08/06/16 21:42 Colace - PO 100 mg BID PRN Administration CONSTIPATION Ceftriaxone Sodium 50 mls @ 100 mls/hr 08/06/16 10:00 08/08/16 09:22 Rocephin 1gm Ivpb (Pre-Docked) IVPB 100 mls/hr DAILY JONAS Administration Insulin Aspart 1 vial 08/07/16 16:30 08/08/16 11:49 Novolog Vial Sliding Scale - SQ Not Given ACHS [facility] Protocol Insulin Detemir 40 units 08/05/16 22:00 08/07/16 21:35 Levemir Vial SQ 40 units HS JONAS Administration Ondansetron HCl 4 mg 08/05/16 21:41 Zofran - PO Q8H PRN NAUSEA AND/OR VOMITING Pantoprazole Sodium 20 mg 08/05/16 21:15 08/08/16 09:22 Protonix - PO 20 mg DAILY JONAS Administration Senna 1 tab 08/05/16 22:00 08/07/16 21:35 Senna - PO 1 tab HS JONAS Administration Tamsulosin HCl 0.4 mg 08/06/16 08:30 08/08/16 09:22 Flomax - PO 0.4 mg DAILY@0830 JONAS Administration Last Vital Signs Temp Pulse Resp BP Pulse Ox 97.8 F 80 18 144/70 94 L 08/08/16 13:35 08/08/16 13:35 08/08/16 13:35 08/08/16 13:35 08/08/16 09:00 General NAD CV S1 S2 RRR no murmur/rub/gallop Lungs decreased breath sounds R base. no wheezing or rales ABdomen soft NT/ND no suprapubic tenderness A/P 80yo M with PMH DM, CAD s/p CABG, DM, BPH s/p TURP, came to the ER and was admitted 1. CAP-Tm 100.4 repeat CXR showing increase Right lung infiltrate and pericardial effusion, stat echo ordered.remains hemodynamically stable. saturating 97% on 2L NC. pt feels like he still requires supplemental oxygen and does not want to trial off the oxygen. clinically improved. desaturations. will order oxygen therapy for now, attempt to titrate off O2. cont Ceftriaxone day 4. pulmonary on board. 2, UTI- UCx contaminate. will repeat as concerned with recent procedure. cont ceftriaxone. 3. Acute microcytic anemia- likely due to recent procedure. continues to have hematuria. Hgb stable. no indication on txn. 4. Constipation-resolved 5. CHF- no clinical signs of volume overload. scheduled for echo in 2 weeks, however will obtain one now due to development of pericardial effusion? 6. acute on CKD- possible due to infection. trending down avoid nephrotoxic agents 7. DM- cont home medications. iss, bgm 8. BPH- flomax 9. CAD s/p CABG- . cont asa, amio 10. dvt ppx- SCD Visit type - Emergency Visit Emergency Visit: Yes ED Registration Date: 08/05/16 Care time: The patient presented to the Emergency Department on the above date and was hospitalized for further evaluation of their emergent condition. - New Patient This patient is new to me today: No - Critical Care Critical Care patient: No - Discharge Referral Referred to [facility] No
[2016-08-08] MEDS: ACETAMINOPHEN 500 MG TABLET (FP) PO PRN (17:30)
[2016-08-08] MEDS: ONDANSETRON 4 MG TABLET PO PRN (17:30)
[2016-08-08] MEDS: SENNOSIDES 8.6MG TABLET (FP) PO SCH (22:55)
[2016-08-08] MEDS: INSULIN DETEMIR 100 UNITS/ML MDV SQ SCH (22:55)
[2016-08-09] MEDS: INSULIN SLIDING SCALE (NOVOLOG) 1 VIAL SQ SCH ×4 (06:06→21:49)
[2016-08-09] MEDS: CEFTRIAXONE 50 ML IVPB SCH (09:51)
[2016-08-09] MEDS: AMIODARONE HCL 200 MG TABLET (FP) PO SCH (09:51)
[2016-08-09] MEDS: ASPIRIN 81 MG CHEWABLE TABLETS PO SCH (09:51)
[2016-08-09] MEDS: TAMSULOSIN HCL 0.4 MG CAP.ER.24H (FP) PO SCH (09:51)
[2016-08-09] MEDS: PANTOPRAZOLE 20 MG TABLET (FP) PO SCH (09:51)
--- NOTE | 2016-08-09 10:33 | PN ---
Progress Note, Physician History of Present Illness: pulmonary alert,feeling better, still c/o weakness,-sob,less chest discomfort - Current Medication List Current Medications: Active Medications Acetaminophen (Tylenol -) 500 mg PO Q6H PRN PRN Reason: FEVER OR PAIN Last Admin: 08/08/16 17:30 Dose: 500 mg Albuterol/Ipratropium (Duoneb -) 1 amp NEB Q6H PRN PRN Reason: SHORTNESS OF BREATH Last Admin: 08/08/16 10:34 Dose: 1 amp Amiodarone HCl (Cordarone -) 200 mg PO DAILY [facility] Last Admin: 08/09/16 09:51 Dose: 200 mg Aspirin (Asa -) 81 mg PO DAILY [facility] Last Admin: 08/09/16 09:51 Dose: 81 mg Docusate Sodium (Colace -) 100 mg PO BID PRN PRN Reason: CONSTIPATION Last Admin: 08/06/16 21:42 Dose: 100 mg Ceftriaxone Sodium (Rocephin 1gm Ivpb (Pre-Docked)) 50 mls @ 100 mls/hr IVPB DAILY [facility] Last Admin: 08/09/16 09:51 Dose: 100 mls/hr Insulin Aspart (Novolog Vial Sliding Scale -) 1 vial SQ ACHS [facility] PRN Reason: Protocol Last Admin: 08/09/16 06:06 Dose: 2 units Insulin Detemir (Levemir Vial) 40 units SQ HS [facility] Last Admin: 08/08/16 22:55 Dose: Not Given Ondansetron HCl (Zofran -) 4 mg PO Q8H PRN PRN Reason: NAUSEA AND/OR VOMITING Last Admin: 08/08/16 17:30 Dose: 4 mg Pantoprazole Sodium (Protonix -) 20 mg PO DAILY [facility] Last Admin: 08/09/16 09:51 Dose: 20 mg Senna (Senna -) 1 tab PO HS [facility] Last Admin: 08/08/16 22:55 Dose: Not Given Tamsulosin HCl (Flomax -) 0.4 mg PO DAILY@0830 [facility] Last Admin: 08/09/16 09:51 Dose: 0.4 mg - Objective Vital Signs: Vital Signs Temperature 98.3 F 08/09/16 08:08 Pulse Rate 84 08/09/16 08:08 Respiratory Rate 18 08/09/16 08:41 Blood Pressure 106/57 08/09/16 08:08 O2 Sat by Pulse Oximetry (%) 95 08/09/16 08:41 Constitutional: Yes: Well Nourished, Calm Eyes: Yes: WNL HENT: Yes: WNL Neck: Yes: Supple Cardiovascular: Yes: Regular Rate and Rhythm, S1, S2 Respiratory: Yes: CTA Bilaterally Gastrointestinal: Yes: Normal Bowel Sounds, Soft Extremities: Yes: WNL Edema: No Labs: CBC, BMP 08/07/16 09:25 08/07/16 09:25 Assessment/Plan Problem List - Problems (1) Pneumonia Code(s): J18.9 - PNEUMONIA, UNSPECIFIED ORGANISM (2) UTI (urinary tract infection) Code(s): N39.0 - URINARY TRACT INFECTION, SITE NOT SPECIFIED Assessment/Plan RLL PNEUMONIA LV DYSFUNCTION PULMONARY HTN plan CONTINUE ANTIBIOTICS O2 BRONCHODILATORS DVT PROPHYLAXIS CHEST CT BNP DR RUIZ
--- NOTE | 2016-08-09 10:44 | PN ---
<Nilson Perez - Last Filed: 08/09/16 11:20> Physical Exam: SUBJECTIVE: Patient seen and examined at bedside. This morning he felt somewhat feverish and had increased cough. But now feels better and is bringing up phlegm which is whitish/sapp in color. Also no longer feels febrile. He has pain with deep inspiration on the right side of back. Has some SOB with exertion. Had BM this morning and is eating today. Denies N/V, diarrhea. OBJECTIVE: Vital Signs Temperature 98.3 F 08/09/16 08:08 Pulse Rate 84 08/09/16 08:08 Respiratory Rate 18 08/09/16 08:41 Blood Pressure 106/57 08/09/16 08:08 O2 Sat by Pulse Oximetry (%) 95 08/09/16 08:41 GENERAL: The patient is awake, alert, and fully oriented, in no acute distress. HEAD: Normal with no signs of trauma. ENT: moist mucous membranes. NECK: Trachea midline, full range of motion LUNGS: Diminished breath sounds B/L. No wheezing or crackles auscultated. HEART: Regular rate and rhythm, S1, S2 without murmur, rub or gallop. ABDOMEN: Soft, obese, nontender, nondistended, normoactive bowel sounds, no guarding, no rebound, no hepatosplenomegaly, no masses. EXTREMITIES: 2+ pulses, warm, well-perfused, no edema. NEUROLOGICAL: Normal speech, gait not observed. PSYCH: Normal mood, normal affect. SKIN: Warm, dry, normal turgor, no rashes or lesions noted Laboratory Results - last 24 hr 08/08/16 08/08/16 08/08/16 11:49 17:24 22:53 POC Glucometer 146 257 160 08/09/16 05:51 POC Glucometer 226 Active Medications Generic Name Dose Route Start Last Admin Trade Name Freq PRN Reason Stop Dose Admin Acetaminophen 500 mg 08/05/16 21:40 08/08/16 17:30 Tylenol - PO 500 mg Q6H PRN Administration FEVER OR PAIN Albuterol/Ipratropium 1 amp 08/05/16 22:10 08/08/16 10:34 Duoneb - NEB 1 amp Q6H PRN Administration SHORTNESS OF BREATH Amiodarone HCl 200 mg 08/06/16 10:00 08/09/16 09:51 Cordarone - PO 200 mg DAILY JONAS Administration Aspirin 81 mg 08/05/16 21:15 08/09/16 09:51 Asa - PO 81 mg DAILY JONAS Administration Docusate Sodium 100 mg 08/05/16 21:06 08/06/16 21:42 Colace - PO 100 mg BID PRN Administration CONSTIPATION Ceftriaxone Sodium 50 mls @ 100 mls/hr 08/06/16 10:00 08/09/16 09:51 Rocephin 1gm Ivpb (Pre-Docked) IVPB 100 mls/hr DAILY JONAS Administration Insulin Aspart 1 vial 08/07/16 16:30 08/09/16 06:06 Novolog Vial Sliding Scale - SQ 2 units ACHS JONAS Administration Protocol Insulin Detemir 40 units 08/05/16 22:00 08/08/16 22:55 Levemir Vial SQ Not Given HS JONAS Ondansetron HCl 4 mg 08/05/16 21:41 08/08/16 17:30 Zofran - PO 4 mg Q8H PRN Administration NAUSEA AND/OR VOMITING Pantoprazole Sodium 20 mg 08/05/16 21:15 08/09/16 09:51 Protonix - PO 20 mg DAILY JONAS Administration Senna 1 tab 08/05/16 22:00 08/08/16 22:55 Senna - PO Not Given HS JONAS Tamsulosin HCl 0.4 mg 08/06/16 08:30 08/09/16 09:51 Flomax - PO 0.4 mg DAILY@0830 JONAS Administration ASSESSMENT/PLAN: 79 y/o M with PMH of BPH s/p TURP (08/03/16), DM, CAD s/p CAB & 2 stents, peripheral neuropathy, arrhythmia presented to ER with SOB x 1 day and admitted for CAP and UTI. 1. CAP - no recorded fever over last 24 hours. - AP/Lateral Chest x-ray ordered. - CBC w/diff ordered - c/w ceftriaxone 1 g IVPB qd (day 5 today) - Titrate off O2 - pulmonary on board - respiratory virus panel still pending 2. UTI - Repeat UCx negative - Asymptomatic currently - No longer has gross hematuria - c/w ceftriaxone 3. Microcytic Anemia - CBC ordered, will f/u 4. CHF (systolic) - no signs of volume overload -ECHO: mod mitral valve thickening, mod to severe mitral annular calcification, mod aortic sclerosis, LA is mildly dilated, LV is mildly dilated , LVSF moderately reduced, RV systolic pressure elevated at 44 mmHg, mild aortic root dilation. 5. Acute on chronic kidney disease -f/u BMP -was trending down to his baseline of 1.5 on last labs 6. Constipation -had BM yesterday and today. Resolved. -f/u Abdominal flat and upright XR 7. BPH -c/w flomax 8. DM -Levemir, ISS, BGMs 9. CAD -c/w ASA and amiodarone 10. DVT -heparin 5000 units TID 11. Dispo: -continue to monitor on floors. Problem List - Problems (1) Pneumonia Code(s): J18.9 - PNEUMONIA, UNSPECIFIED ORGANISM (2) UTI (urinary tract infection) Code(s): N39.0 - URINARY TRACT INFECTION, SITE NOT SPECIFIED (3) CHF (congestive heart failure) Code(s): I50.9 - HEART FAILURE, UNSPECIFIED (4) Diabetes Code(s): E11.9 - TYPE 2 DIABETES MELLITUS WITHOUT COMPLICATIONS (5) BPH (benign prostatic hyperplasia) Code(s): N40.0 - BENIGN PROSTATIC HYPERPLASIA WITHOUT LOWER URINRY TRACT SYMP (6) CAD (coronary artery disease) Code(s): I25.10 - ATHSCL HEART DISEASE OF [place] CORONARY ARTERY W/O ANG PCTRS (7) Microcytic anemia Code(s): D50.9 - IRON DEFICIENCY ANEMIA, UNSPECIFIED Visit type - Emergency Visit Emergency Visit: Yes ED Registration Date: 08/05/16 Care time: The patient presented to the Emergency Department on the above date and was hospitalized for further evaluation of their emergent condition. - New Patient This patient is new to me today: Yes Date on this admission: 08/09/16 - Critical Care Critical Care patient: No <Mich Gómez - Last Filed: 08/09/16 14:52> Physical Exam: ATTENDING PHYSICIAN STATEMENT I saw and evaluated the patient. I reviewed the resident's note and discussed the case with the resident. I agree with the resident's findings and plan as documented. SUBJECTIVE: seen and evaluated at the bedside OBJECTIVE: resting comfortably in no distress ASSESSMENT AND PLAN: 80year old man with PMH DM, CAD s/p CABG, DM, BPH s/p TURP, admitted for sepsis due to community acquired pneumonia Pneumonia -clinically improved -cont Ceftriaxone -pulmonary on board ordered CT chest which on my read shows patchy airspace infiltrates in RML and RLL with possible cavitation in RUL surrounded by inflammatory fluid with small B/L effusions; follow up radiology reading
[2016-08-09 11:17] LABS: EOSINOPHIL 3.5 % (0-4.5); MCH 31.5 pg (25.7-33.7); MCHC 33.5 g/dl (32.0-35.9); MEAN CELL VOLUME 94.1 fl (80-96); NEUTROPHILS 70.3 % (42.8-82.8); PLATELET COUNT 311 K/MM3 (134-434); RDW 13.4 % (11.9-15.9); WHITE BLOOD COUNT 8.3 K/mm3 (4.0-10.0)
[2016-08-09 11:42] LABS: CALCIUM 8.5 mg/dL (8.5-10.1); CREATININE 1.7 mg/dL (0.7-1.3)
[2016-08-09] MEDS ORDERED: INSULIN (NOVOLOG) ASPART 100 UNITS/ML 10ML VIAL ONE (12:55)
--- NOTE | 2016-08-09 14:45 | PN ---
Teaching Attending Note ATTENDING PHYSICIAN STATEMENT I saw and evaluated the patient. I reviewed the resident's note and discussed the case with the resident. I agree with the resident's findings and plan as documented. SUBJECTIVE: OBJECTIVE: ASSESSMENT AND PLAN:
[2016-08-09] MEDS: ONDANSETRON 4 MG TABLET PO PRN (15:16)
[2016-08-09] MEDS: INSULIN DETEMIR 100 UNITS/ML MDV SQ SCH (21:49)
[2016-08-09] MEDS: SENNOSIDES 8.6MG TABLET (FP) PO SCH ×2 (21:50→21:56)
[2016-08-10] MEDS: INSULIN SLIDING SCALE (NOVOLOG) 1 VIAL SQ SCH ×4 (06:28→22:01)
[2016-08-10 07:20] LABS: MCH 31.6 pg (25.7-33.7); MCHC 34.2 g/dl (32.0-35.9); MEAN CELL VOLUME 92.6 fl (80-96); MEAN PLT VOLUME 8.8 fl (7.5-11.1); PLATELET COUNT 317 K/MM3 (134-434); RDW 13.4 % (11.9-15.9); WHITE BLOOD COUNT 8.7 K/mm3 (4.0-10.0)
[2016-08-10 07:41] LABS: CALCIUM 8.5 mg/dL (8.5-10.1); CREATININE 1.4 mg/dL (0.7-1.3)
[2016-08-10] MEDS: AMIODARONE HCL 200 MG TABLET (FP) PO SCH (09:49)
[2016-08-10] MEDS: PANTOPRAZOLE 20 MG TABLET (FP) PO SCH (09:49)
[2016-08-10] MEDS: ASPIRIN 81 MG CHEWABLE TABLETS PO SCH (09:49)
[2016-08-10] MEDS: DOCUSATE SODIUM 100 MG CAPSULE (FP) PO PRN (09:49)
[2016-08-10] MEDS: CEFTRIAXONE 50 ML IVPB SCH (09:49)
[2016-08-10] MEDS: TAMSULOSIN HCL 0.4 MG CAP.ER.24H (FP) PO SCH (09:49)
[2016-08-10] MEDS: POLYETHYLENE GLYCOL 3350 119 GM BTL PO SCH (09:50)
--- NOTE | 2016-08-10 10:57 | PN ---
Progress Note, Physician History of Present Illness: pulmonary alert,feeling better,still c/o sob,less cp. - Current Medication List Current Medications: Active Medications Acetaminophen (Tylenol -) 500 mg PO Q6H PRN PRN Reason: FEVER OR PAIN Last Admin: 08/08/16 17:30 Dose: 500 mg Albuterol/Ipratropium (Duoneb -) 1 amp NEB Q6H PRN PRN Reason: SHORTNESS OF BREATH Last Admin: 08/08/16 10:34 Dose: 1 amp Amiodarone HCl (Cordarone -) 200 mg PO DAILY [facility] Last Admin: 08/10/16 09:49 Dose: 200 mg Aspirin (Asa -) 81 mg PO DAILY [facility] Last Admin: 08/10/16 09:49 Dose: 81 mg Docusate Sodium (Colace -) 100 mg PO BID PRN PRN Reason: CONSTIPATION Last Admin: 08/10/16 09:49 Dose: 100 mg Ceftriaxone Sodium (Rocephin 1gm Ivpb (Pre-Docked)) 50 mls @ 100 mls/hr IVPB DAILY [facility] Last Admin: 08/10/16 09:49 Dose: 100 mls/hr Insulin Aspart (Novolog Vial Sliding Scale -) 1 vial SQ ACHS [facility] PRN Reason: Protocol Last Admin: 08/10/16 06:28 Dose: Not Given Insulin Detemir (Levemir Vial) 40 units SQ HS [facility] Last Admin: 08/09/16 21:49 Dose: 40 units Ondansetron HCl (Zofran -) 4 mg PO Q8H PRN PRN Reason: NAUSEA AND/OR VOMITING Last Admin: 08/09/16 15:16 Dose: 4 mg Pantoprazole Sodium (Protonix -) 20 mg PO DAILY [facility] Last Admin: 08/10/16 09:49 Dose: 20 mg Polyethylene Glycol (Miralax (For Daily Use) -) 17 gm PO DAILY [facility] Last Admin: 08/10/16 09:50 Dose: 17 gm Senna (Senna -) 1 tab PO HS [facility] Last Admin: 08/09/16 21:56 Dose: 1 tab Tamsulosin HCl (Flomax -) 0.4 mg PO DAILY@0830 [facility] Last Admin: 08/10/16 09:49 Dose: 0.4 mg - Objective Vital Signs: Vital Signs Temperature 97.8 F 08/10/16 06:00 Pulse Rate 68 01/18/17 06:00 Respiratory Rate 18 08/10/16 06:00 Blood Pressure 140/57 08/10/16 06:00 O2 Sat by Pulse Oximetry (%) 97 08/10/16 06:00 Constitutional: Yes: Well Nourished, Calm Eyes: Yes: WNL HENT: Yes: WNL Neck: Yes: WNL Cardiovascular: Yes: Regular Rate and Rhythm, S1 Respiratory: Yes: Diminished Gastrointestinal: Yes: Normal Bowel Sounds, Soft Extremities: Yes: WNL Edema: No Labs: CBC, BMP 08/10/16 05:35 Laboratory Tests 08/09/16 10:45 B-Natriuretic Peptide 9746.70 H - ....Imaging Cat Scan: Report Reviewed, Image Reviewed (BILATERAL PLEURAL EFFUSIONS, BILATERAL GROUD GLASS INFILTRATES) Assessment/Plan Problem List - Problems (1) Pneumonia Code(s): J18.9 - PNEUMONIA, UNSPECIFIED ORGANISM (2) UTI (urinary tract infection) Code(s): N39.0 - URINARY TRACT INFECTION, SITE NOT SPECIFIED 3 CHF Assessment/Plan RLL PNEUMONIA LV DYSFUNCTION PULMONARY HTN CHF plan CONTINUE ANTIBIOTICS O2 BRONCHODILATORS DVT PROPHYLAXIS RENETTA RUIZ
--- NOTE | 2016-08-10 11:26 | PN ---
Teaching Attending Note Name of Resident: Nilson Perez ATTENDING PHYSICIAN STATEMENT I saw and evaluated the patient. I reviewed the resident's note and discussed the case with the resident. I agree with the resident's findings and plan as documented. SUBJECTIVE: seen and evaluated at the bedside OBJECTIVE: resting comfortably in no distress ASSESSMENT AND PLAN: 80year old man with PMH DM, CAD s/p CABG, DM, BPH s/p TURP, admitted for sepsis due to community acquired pneumonia Pneumonia -clinically improved -cont Ceftriaxone -pulmonary on board ordered CT chest which on my read shows patchy airspace infiltrates in RML and RLL with small B/L effusions and small nodule -afebrile and hemodynamically stable; walked 80 feet with physical therapy yesterday -medically stable for discharge on augmentin and will need repeat CT scan as an outpatient for nodule
--- NOTE | 2016-08-10 13:25 | DS ---
Physical Exam: SUBJECTIVE: Patient seen and examined at bedside. Feels much better today. Does not have SOB today and has decreased cough and sputum production. He denies N/V/F/C, diarrhea, or dysuria. Has no gross hematuria. No pain with deep inspiration. Has some constipation today. OBJECTIVE: Vital Signs Temperature 98 F 08/10/16 10:00 Pulse Rate 72 08/10/16 10:00 Respiratory Rate 18 08/10/16 10:00 Blood Pressure 145/68 08/10/16 10:00 O2 Sat by Pulse Oximetry (%) 95 08/10/16 09:00 PHYSICAL EXAM GENERAL: The patient is awake, alert, and fully oriented, in no acute distress. HEAD: Normal with no signs of trauma. ENT: moist mucous membranes. NECK: Trachea midline, full range of motion LUNGS: Diminished breath sounds R lower lung field. No wheezing or crackles auscultated. HEART: Regular rate and rhythm, S1, S2 without murmur, rub or gallop. ABDOMEN: Soft, obese, nontender, nondistended, normoactive bowel sounds, no guarding, no rebound, no hepatosplenomegaly, no masses. EXTREMITIES: 2+ pulses, warm, well-perfused, no edema. NEUROLOGICAL: Normal speech, gait not observed. PSYCH: Normal mood, normal affect. SKIN: Warm, dry, normal turgor, no rashes or lesions noted LABS Laboratory Results - last 24 hr 08/09/16 08/09/16 08/09/16 12:46 15:51 21:37 WBC RBC Hgb Hct MCV MCHC RDW Plt Count MPV Sodium Potassium Chloride Carbon Dioxide Anion Gap BUN Creatinine POC Glucometer 290 164 276 Random Glucose Calcium 08/10/16 08/10/16 08/10/16 03:40 05:35 05:35 WBC 8.7 RBC 3.13 L Hgb 9.9 L Hct 29.0 L MCV 92.6 MCHC 34.2 RDW 13.4 Plt Count 317 MPV 8.8 Sodium 140 Potassium 4.4 Chloride 101 Carbon Dioxide 33 H D Anion Gap 6 L BUN 25 H Creatinine 1.4 H POC Glucometer 164 Random Glucose 102 D Calcium 8.5 08/10/16 08/10/16 06:25 11:48 WBC RBC Hgb Hct MCV MCHC RDW Plt Count MPV Sodium Potassium Chloride Carbon Dioxide Anion Gap BUN Creatinine POC Glucometer 104 160 Random Glucose Calcium HOSPITAL COURSE: Date of Admission:08/05/16 Date of Discharge: 08/10/16 Discharge Summary Reason For Visit: PULMONARY EMBOLISM; UTI; PNEUMONIA Current Active Problems Microcytic anemia (Acute) Pneumonia (Acute) UTI (urinary tract infection) (Acute) BPH (benign prostatic hyperplasia) (Chronic) CAD (coronary artery disease) (Chronic) CHF (congestive heart failure) (Chronic) Diabetes (Chronic) Condition: Stable - Instructions Diet, Activity, Other Instructions: You will be prescribed Augmentin 875 mg to take twice a day for 2 more days. It has been sent to your pharmacy. Take this medication until the whole course is completed. Please follow up with your primary care doctor within 1 week. You can take miralax for your constipation. If you continue to have constipation please contact your primary care physician. You will also need to follow up with your primary care physician for your pulmonary nodules that were noted on this admission's CT chest results. If you have worsening cough or shortness of breath or develop fever and chills please report back to ER. Referrals: Albin Huitron MD, [Primary Care Provider] - - Home Medications Comprehensive Discharge Medication List: Ambulatory Orders Amiodarone HCl [Cordarone -] 200 mg PO DAILY tablet 08/10/16 Amoxicillin/Potassium Clav [Augmentin 875-125 Tablet] 1 each PO BID #4 tablet Aspirin [ASA -] 81 mg PO DAILY 08/10/16 Aspirin [ASA -] 81 mg PO DAILY tab.chew 08/10/16 Insulin Glargine,Hum.rec.anlog [Lantus (10mL VIAL) -] 40 units SQ HS #0 Omeprazole 20 mg PO DAILY 08/10/16 Polyethylene Glycol 3350 [Miralax 119 gm Btl -] 17 gm PO DAILY bottle 08/10/16 Tamsulosin HCl [Flomax -] 0.4 mg PO DAILY@0830 cap.er.24h 08/10/16 Problem List - Problems (1) Pneumonia Code(s): J18.9 - PNEUMONIA, UNSPECIFIED ORGANISM (2) UTI (urinary tract infection) Code(s): N39.0 - URINARY TRACT INFECTION, SITE NOT SPECIFIED (3) CHF (congestive heart failure) Code(s): I50.9 - HEART FAILURE, UNSPECIFIED (4) Diabetes Code(s): E11.9 - TYPE 2 DIABETES MELLITUS WITHOUT COMPLICATIONS (5) BPH (benign prostatic hyperplasia) Code(s): N40.0 - BENIGN PROSTATIC HYPERPLASIA WITHOUT LOWER URINRY TRACT SYMP (6) CAD (coronary artery disease) Code(s): I25.10 - ATHSCL HEART DISEASE OF [place] CORONARY ARTERY W/O ANG PCTRS (7) Microcytic anemia Code(s): D50.9 - IRON DEFICIENCY ANEMIA, UNSPECIFIED - Discharge Referral Referred to [facility] No
--- NOTE | 2016-08-10 14:04 | PN ---
Physical Exam: SUBJECTIVE: Patient seen and examined at bedside. Feels much better today. Does not have SOB today and has decreased cough and sputum production. He denies N/V/F/C, diarrhea, or dysuria. Has no gross hematuria. No pain with deep inspiration. Has some constipation today. OBJECTIVE: Vital Signs Temperature 98 F 08/10/16 10:00 Pulse Rate 72 08/10/16 10:00 Respiratory Rate 18 08/10/16 10:00 Blood Pressure 145/68 08/10/16 10:00 O2 Sat by Pulse Oximetry (%) 95 08/10/16 09:00 PHYSICAL EXAM GENERAL: The patient is awake, alert, and fully oriented, in no acute distress. HEAD: Normal with no signs of trauma. ENT: moist mucous membranes. NECK: Trachea midline, full range of motion LUNGS: Diminished breath sounds R lower lung field. No wheezing or crackles auscultated. HEART: Regular rate and rhythm, S1, S2 without murmur, rub or gallop. ABDOMEN: Soft, obese, nontender, nondistended, normoactive bowel sounds, no guarding, no rebound, no hepatosplenomegaly, no masses. EXTREMITIES: 2+ pulses, warm, well-perfused, no edema. NEUROLOGICAL: Normal speech, gait not observed. PSYCH: Normal mood, normal affect. SKIN: Warm, dry, normal turgor, no rashes or lesions noted Laboratory Results - last 24 hr 08/09/16 08/09/16 08/10/16 15:51 21:37 03:40 WBC RBC Hgb Hct MCV MCHC RDW Plt Count MPV Sodium Potassium Chloride Carbon Dioxide Anion Gap BUN Creatinine POC Glucometer 164 276 164 Random Glucose Calcium 08/10/16 08/10/16 08/10/16 05:35 05:35 06:25 WBC 8.7 RBC 3.13 L Hgb 9.9 L Hct 29.0 L MCV 92.6 MCHC 34.2 RDW 13.4 Plt Count 317 MPV 8.8 Sodium 140 Potassium 4.4 Chloride 101 Carbon Dioxide 33 H D Anion Gap 6 L BUN 25 H Creatinine 1.4 H POC Glucometer 104 Random Glucose 102 D Calcium 8.5 08/10/16 11:48 WBC RBC Hgb Hct MCV MCHC RDW Plt Count MPV Sodium Potassium Chloride Carbon Dioxide Anion Gap BUN Creatinine POC Glucometer 160 Random Glucose Calcium Active Medications Generic Name Dose Route Start Last Admin Trade Name Freq PRN Reason Stop Dose Admin Acetaminophen 500 mg 08/05/16 21:40 08/08/16 17:30 Tylenol - PO 500 mg Q6H PRN Administration FEVER OR PAIN Albuterol/Ipratropium 1 amp 08/05/16 22:10 08/08/16 10:34 Duoneb - NEB 1 amp Q6H PRN Administration SHORTNESS OF BREATH Amiodarone HCl 200 mg 08/06/16 10:00 08/10/16 09:49 Cordarone - PO 200 mg DAILY JONAS Administration Aspirin 81 mg 08/05/16 21:15 08/10/16 09:49 Asa - PO 81 mg DAILY JONAS Administration Docusate Sodium 100 mg 08/05/16 21:06 08/10/16 09:49 Colace - PO 100 mg BID PRN Administration CONSTIPATION Ceftriaxone Sodium 50 mls @ 100 mls/hr 08/06/16 10:00 08/10/16 09:49 Rocephin 1gm Ivpb (Pre-Docked) IVPB 100 mls/hr DAILY JONAS Administration Insulin Aspart 1 vial 08/07/16 16:30 08/10/16 12:19 Novolog Vial Sliding Scale - SQ Not Given ACHS [facility] Protocol Insulin Detemir 40 units 08/05/16 22:00 08/09/16 21:49 Levemir Vial SQ 40 units HS JONAS Administration Ondansetron HCl 4 mg 08/05/16 21:41 08/09/16 15:16 Zofran - PO 4 mg Q8H PRN Administration NAUSEA AND/OR VOMITING Pantoprazole Sodium 20 mg 08/05/16 21:15 08/10/16 09:49 Protonix - PO 20 mg DAILY JONAS Administration Polyethylene Glycol 17 gm 08/10/16 10:00 08/10/16 09:50 Miralax (For Daily Use) - PO 17 gm DAILY JONAS Administration Senna 1 tab 08/05/16 22:00 08/09/16 21:56 Senna - PO 1 tab HS JONAS Administration Tamsulosin HCl 0.4 mg 08/06/16 08:30 08/10/16 09:49 Flomax - PO 0.4 mg DAILY@0830 JONAS Administration ASSESSMENT/PLAN: 79 y/o M with PMH of BPH s/p TURP (08/03/16), DM, CAD s/p CAB & 2 stents, peripheral neuropathy, arrhythmia presented to ER with SOB x 1 day and admitted for CAP and UTI. 1. CAP - no recorded fever over last 24 hours. - c/w ceftriaxone 1 g IVPB qd (day 6 today) - Titrate off O2 - pulmonary on board - respiratory virus panel still pending 2. UTI - Repeat UCx negative - Asymptomatic currently - No longer has gross hematuria - c/w ceftriaxone 3. Microcytic Anemia - H/H .04/21 - asymptomatic 4. CHF (systolic) - no signs of volume overload -ECHO: mod mitral valve thickening, mod to severe mitral annular calcification, mod aortic sclerosis, LA is mildly dilated, LV is mildly dilated , LVSF moderately reduced, RV systolic pressure elevated at 44 mmHg, mild aortic root dilation. 5. Acute on chronic kidney disease -f/u BMP -was trending down to his baseline of 1.5 on last labs 6. Constipation -had BM yesterday and today. Resolved. -Abdominal XR - fecal retention 7. BPH -c/w flomax 8. DM -Levemir, ISS, BGMs 9. CAD -c/w ASA and amiodarone 10. DVT -heparin 5000 units TID 11. Dispo: -Will d/c tomorrow on augmentin 875 mg PO bid for 1 more day. Will need walker upon discharge. Problem List - Problems (1) Pneumonia Code(s): J18.9 - PNEUMONIA, UNSPECIFIED ORGANISM (2) UTI (urinary tract infection) Code(s): N39.0 - URINARY TRACT INFECTION, SITE NOT SPECIFIED (3) CHF (congestive heart failure) Code(s): I50.9 - HEART FAILURE, UNSPECIFIED (4) Diabetes Code(s): E11.9 - TYPE 2 DIABETES MELLITUS WITHOUT COMPLICATIONS (5) BPH (benign prostatic hyperplasia) Code(s): N40.0 - BENIGN PROSTATIC HYPERPLASIA WITHOUT LOWER URINRY TRACT SYMP (6) CAD (coronary artery disease) Code(s): I25.10 - ATHSCL HEART DISEASE OF [place] CORONARY ARTERY W/O ANG PCTRS (7) Microcytic anemia Code(s): D50.9 - IRON DEFICIENCY ANEMIA, UNSPECIFIED Visit type - Emergency Visit Emergency Visit: Yes ED Registration Date: 08/05/16 Care time: The patient presented to the Emergency Department on the above date and was hospitalized for further evaluation of their emergent condition. - New Patient This patient is new to me today: No - Critical Care Critical Care patient: No
[2016-08-10] MEDS ORDERED: FUROSEMIDE 40 MG/4 ML INJECTABLE VIAL IVPB ONE (15:00)
[2016-08-10] MEDS: SENNOSIDES 8.6MG TABLET (FP) PO SCH (22:00)
[2016-08-10] MEDS: INSULIN DETEMIR 100 UNITS/ML MDV SQ SCH (22:01)
[2016-08-11] MEDS: INSULIN SLIDING SCALE (NOVOLOG) 1 VIAL SQ SCH ×2 (06:07→11:39)
[2016-08-11] MEDS: PANTOPRAZOLE 20 MG TABLET (FP) PO SCH (09:39)
[2016-08-11] MEDS: POLYETHYLENE GLYCOL 3350 119 GM BTL PO SCH (09:39)
[2016-08-11] MEDS: CEFTRIAXONE 50 ML IVPB SCH (09:39)
[2016-08-11] MEDS: TAMSULOSIN HCL 0.4 MG CAP.ER.24H (FP) PO SCH (09:39)
[2016-08-11] MEDS: ASPIRIN 81 MG CHEWABLE TABLETS PO SCH (09:39)
[2016-08-11] MEDS: AMIODARONE HCL 200 MG TABLET (FP) PO SCH (09:39)
[2016-08-11 10:43] VITALS: PULSE 73
--- NOTE | 2016-08-11 11:18 | DS ---
Physical Exam: SUBJECTIVE: Patient seen and examined OBJECTIVE: Vital Signs Period Temp Pulse Resp BP Sys/Blanca Pulse Ox Last 24 Hr 97.7 F-98.4 F 66-75 17-20 124-173/55-91 95-97 PHYSICAL EXAM GENERAL: The patient is awake, alert, and fully oriented, in no acute distress. HEAD: Normal with no signs of trauma. EYES: PERRL, extraocular movements intact, sclera anicteric, conjunctiva clear. ENT: Ears normal, nares patent, oropharynx clear without exudates, moist mucous membranes. NECK: Trachea midline, full range of motion, supple. LUNGS: Breath sounds equal, clear to auscultation bilaterally, no wheezes, no crackles, no accessory muscle use. HEART: Regular rate and rhythm, S1, S2 without murmur, rub or gallop. ABDOMEN: Soft, nontender, nondistended, normoactive bowel sounds, no guarding, no rebound, no hepatosplenomegaly, no masses. EXTREMITIES: 2+ pulses, warm, well-perfused, no edema. NEUROLOGICAL: Cranial nerves II through XII grossly intact. Normal speech, gait not observed. PSYCH: Normal mood, normal affect. SKIN: Warm, dry, normal turgor, no rashes or lesions noted. LABS Laboratory Results - last 24 hr 08/10/16 08/10/16 08/10/16 11:48 17:30 21:57 POC Glucometer 160 371 121 08/11/16 05:54 POC Glucometer 124 HOSPITAL COURSE: Date of Admission:08/05/16 Date of Discharge: 08/11/16 Minutes to complete discharge: 40 Discharge Summary Reason For Visit: PULMONARY EMBOLISM; UTI; PNEUMONIA Current Active Problems Microcytic anemia (Acute) Pneumonia (Acute) UTI (urinary tract infection) (Acute) BPH (benign prostatic hyperplasia) (Chronic) CAD (coronary artery disease) (Chronic) CHF (congestive heart failure) (Chronic) Diabetes (Chronic) Hospital Course: ASSESSMENT AND PLAN: 80year old man with PMH DM, CAD s/p CABG, DM, BPH s/p TURP, admitted for sepsis due to community acquired pneumonia Pneumonia -clinically improved -cont Ceftriaxone -pulmonary on board ordered CT chest which on my read shows patchy airspace infiltrates in RML and RLL with small B/L effusions and small nodule -afebrile and hemodynamically stable; walked 80 feet with physical therapy -was treated with one time dose of lasix 40 after pulm attending suggested possible element of CHF; discussed with pt's private cardiologitst and pt will also be discharged on PO lasix daily -medically stable for discharge on augmentin and will need repeat CT scan as an outpatient for nodule Condition: Stable - Instructions Diet, Activity, Other Instructions: You will be prescribed Augmentin 875 mg to take twice a day for 2 more days. It has been sent to your pharmacy. Take this medication until the whole course is completed. Please follow up with your primary care doctor within 1 week. You can take miralax for your constipation. If you continue to have constipation please contact your primary care physician. You will also need to follow up with your primary care physician for your pulmonary nodules that were noted on this admission's CT chest results. If you have worsening cough or shortness of breath or develop fever and chills please report back to ER. Referrals: Albin Huitron MD, MD [Primary Care Provider] - - Home Medications Comprehensive Discharge Medication List: Ambulatory Orders Amiodarone HCl [Cordarone -] 200 mg PO DAILY tablet 08/10/16 Aspirin [ASA -] 81 mg PO DAILY tab.chew 08/10/16 Insulin Glargine,Hum.rec.anlog [Lantus (10mL VIAL) -] 40 units SQ HS #0 Omeprazole 20 mg PO DAILY 08/10/16 Polyethylene Glycol 3350 [Miralax 119 gm Btl -] 17 gm PO DAILY bottle 08/10/16 Tamsulosin HCl [Flomax -] 0.4 mg PO DAILY@0830 cap.er.24h 08/10/16 Amoxicillin/Potassium Clav [Augmentin 875-125 Tablet] 1 each PO BID #2 tablet This patient is new to me today: No Emergency Visit: Yes ED Registration Date: 08/05/16 Care time: The patient presented to the Emergency Department on the above date and was hospitalized for further evaluation of their emergent condition. Critical Care patient: No - Discharge Referral [facility]erred to [facility] Med P.C[facility] No
[2016-08-11 13:55] VITALS: BP 130/60; TEMP 98
== END 2016-08-11 14:02 | disposition home or self-care (01) | DRG 194 ==
LOC: JER 12:38 → JERBED 18:19 → J4W 20:08
PROVIDERS: ADMIT Internal Medicine; ATTEND Internal Medicine
DX: J18.9 Pneumonia, unspecified organism (principal); N17.9 Acute kidney failure, unspecified; N39.0 Urinary tract infection, site not specified; I50.20 Unspecified systolic (congestive) heart failure; I25.10 Atherosclerotic heart disease of native coronary artery without angina pectoris; Z95.1 Presence of aortocoronary bypass graft; Z95.5 Presence of coronary angioplasty implant and graft; N40.0 Benign prostatic hyperplasia without lower urinary tract symptoms; E11.42 Type 2 diabetes mellitus with diabetic polyneuropathy; Z79.4 Long term (current) use of insulin; D50.9 Iron deficiency anemia, unspecified; K59.00 Constipation, unspecified; R31.0 Gross hematuria; N18.9 Chronic kidney disease, unspecified
CPT/HCPCS: 36415; 71010-TC; 71250-TC; 74020-TC; 80048; 80053; 81003; 81015; 82550; 83036; 83880; 84484; 85025; 85027; 85379; 87040; 87086; 87254; 87804; 93005; 93010; 93306-TC; 94010; 94640; 94761; 97116-GP; 99284-25

== ENCOUNTER 2016-12-16 11:25 | Inpatient (IN) | payer OTHER ==
[2016-12-16] MEDS ORDERED: DEXAMETHASONE SOD PHOSPHATE 10 MG/1 ML VIAL ONE (11:44)
--- NOTE | 2016-12-16 11:46 | PDOC ---
History of Present Illness - General History Source: Patient, Old Records - History of Present Illness Initial Comments: 12/16/16 11:49 The patient is an 81-year-old man with a significant past medical history of diabetes mellitus, coronary artery disease status post CABG, benign prostate hyperplasia who was recently admitted at [facility] in July for Pneumonia, now in [facility] for physical therapy who presents to the emergency department via EMS for further evaluation of respiratory distress this morning. Patient was found to be hypoxic, sating to the low 80s on room air. EMS was activated, En route, patient was given Duo-Neb and Decadron treatments without much relief. Upon ER arrival, patient was noted to be afebrile (99.1), hypoxic, to the 60s, tachypneic to a respiratory rate of 30 and hypotensive to 97/39. As per patient's , the patient has been short of breath since his pneumonia diagnosis back in July, however he has been increasingly short of breath for the past few days with associated generalized weakness that has not allowed him to get out of bed or undergo physical therapy. Patient has noted that he sleep better in an upright position , as he is unable to lie flat without getting short of breath. He also reports endorsing an intermittent productive cough with thick dark sputum. No fever. No chest pain, lightheadedness, dizziness, palpitations, abdominal pain, nausea, vomiting. No urinary symptoms. Allergies: No Known Drug Allergies Past Surgical History: CABG- 2 stents. Social History: No tobacco, EtOH and recreational drug use. Primary Care Physician: Dr. Lelo Kimball <Felicia Ridley - Last Filed: 12/16/16 14:17> - General History Source: Patient, Family Exam Limitations: Clinical Condition <Irma Payne - Last Filed: 12/18/16 00:28> - General Chief Complaint: Respiratory Distress Stated Complaint: RESPIRATORY DISTRESS Past History <Felicia Ridley - Last Filed: 12/16/16 14:17> - Past Medical History Cardiac Disorders: (CAD - 2 stents) Diabetes: Yes Disorders: (BPH - TURP) - Immunization History Immunization Up to Date: Yes - Psycho/Social/Smoking Cessation Hx Suicidal Ideation: No Smoking History: Never smoked Hx Alcohol Use: No <Irma Payne - Last Filed: 12/18/16 00:28> - Past Medical History Allergies/Adverse Reactions: Allergies Allergy/AdvReac Type Severity Reaction Status Date / Time No Known Allergies Allergy Verified 08/05/16 12:46 Home Medications: Ambulatory Orders Aspirin [ASA -] 81 mg PO DAILY tab.chew 08/10/16 Budesonide [Pulmicort 0.25 mg -] 1 neb PO BID 12/16/16 Clopidogrel Bisulfate [Plavix -] 75 mg PO DAILY 12/16/16 Collagenase Clostridium Hist. [Santyl] 1 applic TP DAILY 12/16/16 Flunisolide 25 ml NS BID 12/16/16 Heparin - 5,000 unit SQ BID 12/16/16 Insulin Glargine,Hum.rec.anlog [Lantus (nf)] 40 units SQ HS 12/16/16 Insulin Lispro [Humalog] 0 unit SQ AC 12/16/16 Ipratropium/Albuterol Sulfate [Iprat-Albut 0.5-3(2.5) mg/3 ml] 3 ml IH QID 12/16 Oxycodone HCl/Acetaminophen [Oxycodone-Acetaminophen 5-325] 1 each PO QID PRN Pantoprazole Sodium 40 mg PO DAILY 12/16/16 Prednisone [Deltasone -] 20 mg PO DAILY 12/16/16 Sennosides [Senokot] 8.6 mg PO HS 12/16/16 Tamsulosin HCl [Flomax] 0.4 mg PO DAILY 12/16/16 Review of Systems - Review of Systems Able to Perform ROS?: Yes Comments:: 12/16/16 11:49 GENERAL/CONSTITUTIONAL: Yes; Generalized Weakness. No: fever, chills, weakness, loss of appetite. HEAD, EYES, EARS, NOSE AND THROAT: No: change in vision, ear pain, discharge, sore throat, throat swelling. CARDIOVASCULAR: No: chest pain, lightheadedness, palpitations, syncope RESPIRATORY: Yes: Shortness of breath. Cough. Orthopnea. No: wheezing, hemoptysis, stridor. GASTROINTESTINAL: No: nausea, vomiting, abdominal cramping, diarrhea, rectal bleeding, constipation. GENITOURINARY: No: dysuria, hematuria, frequency, urgency, flank pain. MUSCULOSKELETAL: No: back pain, neck pain, joint pain, muscle swelling or pain SKIN AND BREASTS: No: lesions, pallor, rash or easy bruising. NEUROLOGIC: No: headache, vertigo, paresthesias, weakness ENDOCRINE: No: unexplained weight gain or loss HEMATOLOGIC/LYMPHATIC: No: anemia, easy bleeding, swelling nodes <Felicia Ridley - Last Filed: 12/16/16 14:17> *Physical Exam - Physical Exam Comments: 12/16/16 11:49 GENERAL: Awake. Alert. Speaking in word sentences. Tachypneic. In moderate- severe respiratory distress. HEAD: Normal with no signs of trauma. EYES: PERRLA, EOMI, sclera anicteric, conjunctiva clear. ENT: Ears normal, nares patent, oropharynx clear without exudates. Moist mucous membranes. NECK: Normal range of motion, supple without lymphadenopathy, JVD, or masses. LUNGS: Speaking in word sentences. Tachypneic. In moderate-severe respiratory distress. Diffuse crackles appreciated at both bases. HEART: Regular rate and rhythm, normal S1 and S2 without murmur, rub or gallop. ABDOMEN: Soft, nontender, normoactive bowel sounds. No guarding, no rebound. EXTREMITIES: Normal range of motion, no edema. No clubbing or cyanosis. No erythema, or tenderness. NEUROLOGICAL: Cranial nerves II through XII grossly intact. Normal speech. No focal neurological deficits. MUSCULOSKELETAL: Back non-tender to palpation, no CVA tenderness SKIN: Warm, Dry, normal turgor, no rashes or lesions noted. <Felicia Rdiley - Last Filed: 12/16/16 14:17> Heart Score/ECG Review #1 ECG reviewed & interpreted by me at: 13:20 12/16/16 13:21 A. fib rate of 83 bpm axis is normal, intervals are normal, no ST elevations or depressions. T waves upright <Irma Payne - Last Filed: 12/18/16 00:28> ED Treatment Course - LABORATORY CBC & Chemistry Diagram: 12/16/16 12:00 12/16/16 12:20 - RADIOLOGY Radiograph Interpretation: 12/16/16 14:17 EXAM: RAD/CHEST X-RAY PORTABLE Interpreted by Dr. Shaq Roberto IMPRESSION: Comparison study August 11, 2016 Bilateral pulmonary consolidations are seen with a bronchograms extending to lungs periphery. Unchanged contour of the cardiomediastinal silhouette. No pneumothorax is seen. No large pleural effusion is seen within limitation of examination. Status post cardiothoracic surgery. <Felicia Ridley - Last Filed: 12/16/16 14:17> - LABORATORY CBC & Chemistry Diagram: 12/17/16 05:43 12/17/16 05:43 <Irma Payne - Last Filed: 12/18/16 00:28> Medical Decision Making - Medical Decision Making 12/16/16 12:03 Respiratory was paged. At bedside. Patient now on BiPAP. ABG was drawn at bedside. 12/16/16 13:[address] Chriss Ogden- Relations Manager. Case was discussed. Accepts case. 12/16/16 13:[address] Nivia Dailey. Case was discussed. Accepts case. <Felicia Ridley - Last Filed: 12/16/16 14:17> - Critical Care Time Total Critical Care Time (minutes): 35 Critical Care Statement: The care of this patient involved high complexity decision making to prevent further life threatening deterioration of the patient 's condition and/or to evalute & treat vital organ system(s) failure or risk of failure. - Medical Decision Making 12/16/16 11:46 A portion of this note was documented by scribe services under my direction. I have reviewed the details of the note, within reason, and agree with the documentation with the following case summary and management plan written by me. Nursing documentation reviewed and incorporated into medical decision making 12/16/16 13:16 This patient is an 81-year-old male with a history of hypertension, BPH, coronary artery disease status post CABG who presents emergency department by EMS from the [facility] due to shortness of breath. Patient's history of present illness began in July when he was admitted to this hospital for pneumonia. He was discharged to home ultimately. He was recently admitted to [facility] for pneumonia He was discharged from the hospital 2 days ago and sent to rehabilitation. Patient states that since that time he has been profoundly weak, hasn't been able to get out of bed. He states he feels short of breath, asked for oxygen and was not given it. Patient states he has had a cough productive of dark, thick sputum. He denies chest pain or palpitations. He was found by his today altered, unresponsive He was awoken, placed on supplemental O2. Patient was found to be to take With an O2 saturation in the low 80s. given Decadron and Nebs en route Pt remained short of breath Started on BiPAP with improved O2 saturations Pt states he felt better 12/16/16 13:19 Labs Xray Nebs BiPAP 12/16/16 13:20 Laboratory Tests 08/10/16 12/16/16 12/16/16 05:35 12:00 12:00 WBC 15.8 H D Hgb 10.6 L Hct 32.3 L Plt Count 237 D INR 1.12 VBG pH POC VBG pCO2 POC VBG pO2 Mixed VBG HCO3 BUN 25 H Creatinine 1.4 H 12/16/16 12/16/16 12:15 12:20 WBC Hgb Hct Plt Count INR VBG pH 7.44 H POC VBG pCO2 37.5 L POC VBG pO2 36.7 Mixed VBG HCO3 24.9 BUN 43 H D Creatinine 1.9 H D Will admit to Dr Dailey 12/16/16 13:24 BNP also elevated (higher then prior) Pt has improved significantly on BiPAP <Irma Payne - Last Filed: 12/18/16 00:28> *DC/Admit/Observation/Transfer - Attestations Scribe Attestion: 12/16/16 11:50 Documentation prepared by Felicia Ridley, acting as medical imaging director for Irma Payne MD. <Felicia Ridley - Last Filed: 12/16/16 14:17> - Discharge Dispostion Admit: Yes <Irma Payne - Last Filed: 12/18/16 00:28> Diagnosis at time of Disposition: Pneumonia Qualifiers: Pneumonia type: due to unspecified organism Laterality: bilateral Lung location : unspecified part of lung Qualified Code(s): J18.9 - Pneumonia, unspecified organism - Discharge Dispostion Condition at time of disposition: Guarded - Referrals
[2016-12-16] MEDS ORDERED: ALBUTEROL SO4 2.5/IPRATROPIUM 0.5 INH SOL 3 ML VIAL.NEB. NEB ONE ×2 (11:48→12:06)
[2016-12-16 11:56] VITALS: BMI 26.9
[2016-12-16 12:14] LABS: MCH 30.6 pg (25.7-33.7); MCHC 32.7 g/dl (32.0-35.9); MEAN CELL VOLUME 93.4 fl (80-96); MEAN PLT VOLUME 8.9 fl (7.5-11.1); PLATELET COUNT 237 K/MM3 (134-434); RDW 14.5 % (11.9-15.9); WHITE BLOOD COUNT 15.8 K/mm3 (4.0-10.0)
[2016-12-16 12:33] LABS: INR 1.12 (0.82-1.09); PROTHROMBIN TIME (PATIENT) 12.3 SEC (9.98-11.88)
[2016-12-16 12:35] LABS: ACTIVATED PTT 25.5 SECONDS (26.9-34.4)
[2016-12-16 12:37] LABS: VENOUS PH 7.44 (7.32-7.42)
[2016-12-16 12:38] LABS: VENOUS BLOOD GAS HCO3 24.9 meq/L (19-25)
[2016-12-16 12:56] LABS: ALBUMIN 2.5 g/dl (3.4-5.0); BILIRUBIN,TOTAL 0.8 mg/dL (0.2-1.0); CALCIUM 8.1 mg/dL (8.5-10.1); COCKROFT - GAULT 31.15; CREATININE 1.9 mg/dL (0.7-1.3); TOT PROT 5.8 g/dl (6.4-8.2)
[2016-12-16 12:58] LABS: TROPONIN I 0.03 ng/ml (0.00-0.05)
[2016-12-16] MEDS ORDERED: VANCOMYCIN 1,000 MG in DEXTROSE 5%-WATER - 250 ML IVPB ONE (13:22)
[2016-12-16] MEDS ORDERED: AZITHROMYCIN IVPB 500 MG in DEXTROSE 5%-WATER - 250 ML IVPB ONE (13:22)
[2016-12-16] MEDS ORDERED: PIPERACILLIN/TAZOB 3.375 GM/50 ML PRE-DOCKED IVPB ONE (13:23)
[2016-12-16 13:53] LABS: ARTERIAL BLOOD GAS BASE EXCESS 2.4 meq/l (-2-2); ARTERIAL BLOOD GAS HCO3 25.7 meq/L (22-26); ARTERIAL BLOOD GAS pH 7.47 (7.35-7.45)
[2016-12-16 13:54] LABS: ALLENS TEST POSITIVE; ART PUNCT SITE RIGHT BRACHIAL
[2016-12-16 13:55] LABS: LPM/O2% 50%; PT. ON O2? YES; VENT RATE 14
[2016-12-16 14:17] LABS: METAMYELOCYTE 2 % (0-2)
[2016-12-16] MEDS ORDERED: AZITHROMYCIN IVPB 250 ML IVPB ONE (14:17)
[2016-12-16] MEDS ORDERED: VANCOMYCIN 1 GRAM (PRE-DOCKED) 250 ML IVPB ONE (14:17)
[2016-12-16 14:18] LABS: HYPOCHROMIA 1+; PLATELET ESTIMATE ADEQUATE (NORMAL); POLYCHROMASIA FEW
[2016-12-16] MEDS ORDERED: PIPERACILLIN/TAZOB 3.375 GM 50 ML IVPB ONE (14:18)
--- NOTE | 2016-12-16 16:03 | PN ---
Progress Note (short form) - Note Progress Note: ID Consult dictated HCAP Bilateral/ multilobar Sepsis secondary to pneumonia, possible septic shock COPD exacerbation Toxic metabolic encephalopathy Leukocytosis Azotemia Await c/s Respiratory support Empiric zithromax/ zosyn Critical care time 35min
[2016-12-16] MEDS: FUROSEMIDE 40 MG/4 ML INJECTABLE VIAL IVPB SCH (17:00)
--- NOTE | 2016-12-16 17:01 | HP ---
Admitting History and Physical - Primary Care Physician PCP: Nivia Dailey - Admission Chief Complaint: RESP DISTRESS/ACUTE CHF/PNA History of Present Illness: The patient is an 81-year-old man with a significant past medical history of diabetes mellitus, coronary artery disease status post CABG, benign prostate hyperplasia who was recently admitted at [facility] in July for Pneumonia, now in [facility] for physical therapy who presents to the emergency department via EMS for further evaluation of respiratory distress this morning. Patient was found to be hypoxic, sating to the low 80s on room air. EMS was activated, En route, patient was given Duo-Neb and Decadron treatments without much relief. Upon ER arrival, patient was noted to be afebrile (99.1), hypoxic, to the 60s, tachypneic to a respiratory rate of 30 and hypotensive to 97/39. As per patient's , the patient has been short of breath since his pneumonia diagnosis back in July, however he has been increasingly short of breath for the past few days with associated generalized weakness that has not allowed him to get out of bed or undergo physical therapy. Patient has noted that he sleep better in an upright position , as he is unable to lie flat without getting short of breath. He also reports endorsing an intermittent productive cough with thick dark sputum. No fever. No chest pain, lightheadedness, dizziness, palpitations, abdominal pain, nausea, vomiting. No urinary symptoms. 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 No: Alzheimer's, CVA, Dementia Cardiovascular: Yes: CAD, Other (CABG/PCI STENT 2). No: AFIB Gastrointestinal: Yes: Other (ABD PAIN). No: Cancer Renal/: Yes: BPH, UTI Endocrine: Yes: Diabetes Mellitus - Past Surgical History Past Surgical History: Yes: CABG, TURP - Smoking History Smoking history: Never smoked Have you smoked in the past 12 months: No - Alcohol/Substance Use Hx Alcohol Use: No History of Substance Use: reports: None - Social History ADL: Independent History of Recent Travel: No Home Medications - Allergies Allergies/Adverse Reactions: Allergies Allergy/AdvReac Type Severity Reaction Status Date / Time No Known Allergies Allergy Verified 08/05/16 12:46 - Home Medications Home Medications: Ambulatory Orders Aspirin [ASA -] 81 mg PO DAILY tab.chew 08/10/16 Budesonide [Pulmicort 0.25 mg -] 1 neb PO BID 12/16/16 Clopidogrel Bisulfate [Plavix -] 75 mg PO DAILY 12/16/16 Collagenase Clostridium Hist. [Santyl] 1 applic TP DAILY 12/16/16 Flunisolide 25 ml NS BID 12/16/16 Heparin - 5,000 unit SQ BID 12/16/16 Insulin Glargine,Hum.rec.anlog [Lantus (nf)] 40 units SQ HS 12/16/16 Insulin Lispro [Humalog] 0 unit SQ AC 12/16/16 Ipratropium/Albuterol Sulfate [Iprat-Albut 0.5-3(2.5) mg/3 ml] 3 ml IH QID 12/16 Oxycodone HCl/Acetaminophen [Oxycodone-Acetaminophen 5-325] 1 each PO QID PRN Pantoprazole Sodium 40 mg PO DAILY 12/16/16 Prednisone [Deltasone -] 20 mg PO DAILY 12/16/16 Sennosides [Senokot] 8.6 mg PO HS 12/16/16 Tamsulosin HCl [Flomax] 0.4 mg PO DAILY 12/16/16 Review of Systems - Review of Systems Constitutional: reports: Weakness Eyes: reports: No Symptoms HENT: reports: No Symptoms Neck: reports: No Symptoms Cardiovascular: reports: Shortness of Breath Respiratory: reports: No Symptoms, Cough, Orthopnea, SOB Gastrointestinal: reports: No Symptoms Genitourinary: reports: No Symptoms Musculoskeletal: reports: Muscle Cramps, Muscle Weakness Integumentary: reports: No Symptoms, Bruising Neurological: reports: No Symptoms Endocrine: reports: No Symptoms Hematology/Lymphatic: reports: No Symptoms Physical Examination Vital Signs: Vital Signs Temperature 99.1 F 12/16/16 11:46 Pulse Rate 74 12/16/16 15:37 Respiratory Rate 22 12/16/16 15:37 Blood Pressure 114/44 12/16/16 15:37 O2 Sat by Pulse Oximetry (%) 98 12/16/16 15:37 Constitutional: Yes: Moderate Distress Eyes: Yes: WNL HENT: Yes: WNL Neck: Yes: WNL Cardiovascular: Yes: Murmur Respiratory: Yes: Cough, On BiPap, Rhonchi, SOB, SOB on Exertion Gastrointestinal: Yes: WNL Renal/: Yes: WNL Musculoskeletal: Yes: Muscle Weakness Extremities: Yes: WNL Edema: No Peripheral Pulses WNL: Yes Integumentary: Yes: Bruising Wound/Incision: Yes: Clean/Dry Neurological: Yes: WNL ...Motor Strength: WNL Psychiatric: Yes: WNL Imaging - Results Chest X-ray: Report Reviewed Problem List - Problems (1) Pneumonia Code(s): J18.9 - PNEUMONIA, UNSPECIFIED ORGANISM Qualifiers: Pneumonia type: due to unspecified organism Laterality: bilateral Lung location: unspecified part of lung Qualified Code(s): J18.9 - Pneumonia , unspecified organism (2) Microcytic anemia Code(s): D50.9 - IRON DEFICIENCY ANEMIA, UNSPECIFIED (3) UTI (urinary tract infection) Code(s): N39.0 - URINARY TRACT INFECTION, SITE NOT SPECIFIED Qualifiers: Urinary tract infection type: acute cystitis (4) BPH (benign prostatic hyperplasia) Code(s): N40.0 - BENIGN PROSTATIC HYPERPLASIA WITHOUT LOWER URINRY TRACT SYMP (5) CAD (coronary artery disease) Code(s): I25.10 - ATHSCL HEART DISEASE OF [place] CORONARY ARTERY W/O ANG PCTRS Qualifiers: Associated angina: with unspecified angina (6) CHF (congestive heart failure) Code(s): I50.9 - HEART FAILURE, UNSPECIFIED Qualifiers: Congestive heart failure chronicity: acute on chronic (7) Diabetes Code(s): E11.9 - TYPE 2 DIABETES MELLITUS WITHOUT COMPLICATIONS Qualifiers: Diabetes mellitus complication status: with other specified complication (8) Respiratory distress Code(s): R06.00 - DYSPNEA, UNSPECIFIED Assessment/Plan IV LASIX STAT ICU ADMISSION DOWNGRADED TO TELEMETRY IV ABX PULM/ID/NEPHROLOGY EVAL 02 SUPPORT WITH BIPAP AND O2 4L MONITOR CHECK LABS
[2016-12-16] MEDS: PANTOPRAZOLE 40 MG TABLET (FP) PO SCH (18:53)
[2016-12-16] MEDS: PIPERACILLIN/TAZOB 3.375 GM 50 ML IVPB SCH (18:54)
--- NOTE | 2016-12-16 21:28 | CONSULT ---
Consult Consult Specialty:: Nephrology Reason for Consultation:: CKD - History of Present Illness Chief Complaint: sent in from [place] for respiratory distress History of Present Illness: Pt is an 81 year old male with pmhx of DM, CKD, PAD, CHF, CAD with CABG, BPH and CVA who was sent in from the [facility] for respiratory distress. I saw him earlier in the week in [facility] where I treated him for [facility] from [facility]. His renal function had been getting better. He was also fluid overloaded at the time and required lasix. His creatinine was about 1.8 on discharge. He became short of breath today at rehab. He says he was not given his oxygen. He was hypoxic in ER. I was called to evaluate him for elevated creatinine. He was also found to have elevated lactic acid. He denies fevers or chills. He denies dysuria. He is awake and alert at the moment. 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 Cardio/Vascular: Yes: CAD, Other (CABG/PCI STENT 2) Gastrointestinal: Yes: Other Renal/: Yes: BPH, UTI Endocrine: Yes: Diabetes Mellitus - Past Surgical History Past Surgical History: Yes: CABG, TURP - Alcohol/Substance Use Hx Alcohol Use: No History of Substance Use: reports: None - Smoking History Smoking history: Never smoked Have you smoked in the past 12 months: No - Social History ADL: Independent History of Recent Travel: No Home Medications - Allergies Allergies/Adverse Reactions: Allergies Allergy/AdvReac Type Severity Reaction Status Date / Time No Known Allergies Allergy Verified 08/05/16 12:46 - Home Medications Home Medications: Ambulatory Orders Aspirin [ASA -] 81 mg PO DAILY tab.chew 08/10/16 Budesonide [Pulmicort 0.25 mg -] 1 neb PO BID 12/16/16 Clopidogrel Bisulfate [Plavix -] 75 mg PO DAILY 12/16/16 Collagenase Clostridium Hist. [Santyl] 1 applic TP DAILY 12/16/16 Flunisolide 25 ml NS BID 12/16/16 Heparin - 5,000 unit SQ BID 12/16/16 Insulin Glargine,Hum.rec.anlog [Lantus (nf)] 40 units SQ HS 12/16/16 Insulin Lispro [Humalog] 0 unit SQ AC 12/16/16 Ipratropium/Albuterol Sulfate [Iprat-Albut 0.5-3(2.5) mg/3 ml] 3 ml IH QID 12/16 Oxycodone HCl/Acetaminophen [Oxycodone-Acetaminophen 5-325] 1 each PO QID PRN Pantoprazole Sodium 40 mg PO DAILY 12/16/16 Prednisone [Deltasone -] 20 mg PO DAILY 12/16/16 Sennosides [Senokot] 8.6 mg PO HS 12/16/16 Tamsulosin HCl [Flomax] 0.4 mg PO DAILY 12/16/16 Family Disease History - Family Disease History Family History: Denies Review of Systems - Review of Systems Constitutional: reports: No Symptoms Eyes: reports: No Symptoms HENT: reports: No Symptoms Neck: reports: No Symptoms Cardiovascular: reports: Edema, Shortness of Breath Respiratory: reports: Cough, SOB, SOB on Exertion Gastrointestinal: reports: No Symptoms Genitourinary: reports: No Symptoms Neurological: reports: No Symptoms Endocrine: reports: No Symptoms Hematology/Lymphatic: reports: No Symptoms Psychiatric: reports: No Symptoms Physical Exam Vital Signs: Vital Signs Temperature 99.1 F 12/16/16 11:46 Pulse Rate 73 12/16/16 17:19 Respiratory Rate 24 12/16/16 17:19 Blood Pressure 124/53 12/16/16 17:19 O2 Sat by Pulse Oximetry (%) 94 L 12/16/16 17:19 Constitutional: Yes: Calm Eyes: Yes: Conjunctiva Clear HENT: Yes: Atraumatic Neck: Yes: Supple Cardiovascular: Yes: S1, S2 Respiratory: Yes: CTA Bilaterally Gastrointestinal: Yes: Soft Renal/: Yes: WNL Musculoskeletal: Yes: Muscle Weakness Edema: Yes Neurological: Yes: Oriented Psychiatric: Yes: Oriented Labs: Laboratory Tests 12/16/16 12/16/16 12/16/16 12:00 12:20 12:20 WBC 15.8 H D Hgb 10.6 L Plt Count 237 D ABG pH ABG pCO2 at Pt Temp ABG pO2 at Pt Temp ABG HCO3 ABG O2 Sat (Measured) Sodium 140 Potassium 4.5 Chloride 102 Carbon Dioxide 24 D Anion Gap 14 BUN 43 H D Creatinine 1.9 H D Creat Clearance w eGFR 34.11 Random Glucose 220 H D Lactic Acid 2.5 H* Calcium 8.1 L AST 49 H D B-Natriuretic Peptide 26708.68 H 12/16/16 13:50 WBC Hgb Plt Count ABG pH 7.47 H ABG pCO2 at Pt Temp 36.0 ABG pO2 at Pt Temp 112.0 H ABG HCO3 25.7 ABG O2 Sat (Measured) 95.0 Sodium Potassium Chloride Carbon Dioxide Anion Gap BUN Creatinine Creat Clearance w eGFR Random Glucose Lactic Acid Calcium AST B-Natriuretic Peptide Imaging - Results Chest X-ray: Report Reviewed Problem List - Problems (1) Pneumonia Code(s): J18.9 - PNEUMONIA, UNSPECIFIED ORGANISM Qualifiers: Pneumonia type: due to unspecified organism Laterality: bilateral Lung location: unspecified part of lung Qualified Code(s): J18.9 - Pneumonia , unspecified organism (2) Respiratory distress Code(s): R06.00 - DYSPNEA, UNSPECIFIED (3) BPH (benign prostatic hyperplasia) Code(s): N40.0 - BENIGN PROSTATIC HYPERPLASIA WITHOUT LOWER URINRY TRACT SYMP (4) CAD (coronary artery disease) Code(s): I25.10 - ATHSCL HEART DISEASE OF [place] CORONARY ARTERY W/O ANG PCTRS Qualifiers: Associated angina: with unspecified angina (5) CHF (congestive heart failure) Code(s): I50.9 - HEART FAILURE, UNSPECIFIED Qualifiers: Congestive heart failure chronicity: acute on chronic (6) Diabetes Code(s): E11.9 - TYPE 2 DIABETES MELLITUS WITHOUT COMPLICATIONS Qualifiers: Diabetes mellitus complication status: with other specified complication (7) CKD (chronic kidney disease) Code(s): N18.9 - CHRONIC KIDNEY DISEASE, UNSPECIFIED Assessment/Plan Current Medications Generic Name Dose Route Start Last Admin Trade Name Freq PRN Reason Stop Dose Admin Albuterol/Ipratropium 1 amp 12/16/16 16:53 Duoneb - NEB Q6H PRN SHORTNESS OF BREATH Aspirin 81 mg 12/17/16 10:00 Ecotrin - PO DAILY JONAS Clopidogrel Bisulfate 75 mg 12/17/16 10:00 Plavix - PO DAILY JONAS Collagenase 1 applic 12/17/16 10:00 Santyl - TP DAILY JONAS Furosemide 40 mg 12/16/16 17:00 12/16/16 17:00 Lasix Injection - IVPB 40 mg DAILY JONAS Administration Azithromycin 250 mls @ 250 mls/hr 12/17/16 10:00 Zithromax 500mg Ivpb (Pre-Docked) IVPB DAILY JONAS Piperacillin Sod/Tazobactam Sod 50 mls @ 100 mls/hr 12/16/16 18:00 12/16/16 18: 54 Zosyn 3.375gm Ivpb (Pre-Docked) IVPB 100 mls/hr Q8H-IV JONAS Administration Protocol Insulin Aspart 1 vial 12/16/16 22:00 Novolog Vial Sliding Scale - SQ ACHS JONAS Protocol Insulin Detemir 20 units 12/16/16 22:00 Levemir Vial SQ HS JONAS Pantoprazole Sodium 40 mg 12/16/16 17:00 12/16/16 18:53 Protonix - PO 40 mg DAILY JONAS Administration Tamsulosin HCl 0.4 mg 12/17/16 08:30 Flomax - PO DAILY@0830 JONAS Impression 1. CKD 2. hx CVA 3. CAD 4. DM 5. BPH 6. chol 7. PVD 8. s/p angio of the right leg with stenting 9. PNA 10. dyspnea 11. lactic acidosis Plan - cont with lasix - repeat lactic acid level - repeat labs in am - monitor renal function - pt likely had USHA after his last angio procedure - will follow - mental status is back to baseline - discussed with pmd - discussed plan with pt and - may need higher dose of lasix, will evaluate again tomorrow Dr Wilson
[2016-12-16] MEDS: INSULIN SLIDING SCALE (NOVOLOG) 1 VIAL SQ SCH (21:36)
[2016-12-16] MEDS: INSULIN DETEMIR 100 UNITS/ML MDV SQ SCH (21:37)
[2016-12-16 23:09] LABS: URINE APPEARANCE CLEAR; URINE BILIRUBIN NEGATIVE (NEGATIVE); URINE COLOR COLORLESS; URINE GLUCOSE (UA) 3+ (NEGATIVE); URINE KETONE NEGATIVE (NEGATIVE); URINE LEUK ESTERASE NEGATIVE (NEGATIVE); URINE NITRITE NEGATIVE (NEGATIVE); URINE PROTEIN NEGATIVE (NEGATIVE); URINE UROBILINOGEN NEGATIVE E.U./dl (0.2-1.0)
[2016-12-16 23:10] LABS: URINE BLOOD 1+ (NEGATIVE)
[2016-12-16 23:35] LABS: URINE MUCUS RARE; URINE RBC 12 /hpf (0-3); URINE WBC 1 /hpf (3-5)
[2016-12-17] MEDS: PIPERACILLIN/TAZOB 3.375 GM 50 ML IVPB SCH ×3 (01:49→17:51)
[2016-12-17] MEDS: INSULIN SLIDING SCALE (NOVOLOG) 1 VIAL SQ SCH ×4 (06:23→22:05)
--- NOTE | 2016-12-17 06:51 | CONS ---
DATE OF CONSULTATION: DATE OF DICTATION: 12/16/2016 HISTORY OF PRESENT ILLNESS: The patient is an 81-year-old male who is evaluated for health care-acquired pneumonia and acute exacerbation of COPD. History is obtained from the chart as well as the patient's who was present at the time of the examination. The patient was hospitalized at [facility] in July 2016 for pneumonia. He had been in a short-term rehabilitation center and subsequently discharged home. Earlier this month, the patient went for an angiogram of the right lower extremity. He developed acute renal failure and pulmonary edema. He was hospitalized at [facility] where his reports he was treated for pneumonia and acute renal failure. He was in the hospital for approximately 1 week and was discharged to a assisted facility. She reports that he was there for approximately 2 days before developing worsening shortness of breath and altered mentation. He was noted to be confused and with labored breathing, hypoxemic with O2 saturation in the 80s. He was brought to the emergency room where he was hypotensive, blood pressure 97/39, and tachypneic with a respiratory rate of 30. He was also tachycardic. Chest x-ray showed bilateral patchy infiltrates, right greater than left. He reports cough which was productive of blood-streaked sputum. Occasionally, he coughs up dark sputum. He denies any chest pain. In the emergency room, he was placed on a BiPAP mask. He denies any ill contacts. He is a former smoker, stopped many years ago. No recent travel. Previous hospitalization and assisted resident as noted. PAST MEDICAL HISTORY: Positive for diabetes mellitus, coronary artery disease, BPH, history of pneumonia in July 2016. PAST SURGICAL HISTORY: Status post coronary artery bypass graft and TURP. MEDICATIONS: Aspirin, Pulmicort, Plavix, heparin, Lantus, Humalog, prednisone, Flomax. SOCIAL HISTORY: Lives at home with his . However, had recently been hospitalized and in a assisted facility. He is a former smoker. ALLERGIES: No known allergies. SYSTEMS REVIEW:Neurologic: Positive for altered mental status. No loss of consciousness, seizure activity, or focal weakness. Cardiac: Negative chest pain or palpitations. Respiratory: As per HPI. Gastrointestinal: Positive for gastroesophageal reflux. Genitourinary: Positive for BPH, status post TURP, and recent acute renal failure. PHYSICAL EXAMINATION: General: The patient is awake. He is short of breath at rest on BiPAP. Vital Signs: Temperature is 99.1, blood pressure 137/57, pulse 75, regular, respirations 18 per minute. HEENT: Sclerae are anicteric. Cardiac: Heart sounds S1, S2. Lungs: Diminished breath sounds bilaterally. Abdomen: Obese, soft. No tenderness elicited. No mass, rebound, or rigidity. Extremities: Pedal edema 1+. There is a shallow-based ulceration over the right lateral malleolus with a necrotic base. There is no purulent drainage or foul odor. IMPRESSION: 1. Health care-acquired bilateral multilobar pneumonia. 2. Sepsis secondary to pneumonia, possible early septic shock. 3. Chronic obstructive pulmonary disease exacerbation. 4. Toxic metabolic encephalopathy. 5. Leukocytosis. 6. Renal failure. RECOMMENDATIONS: Await culture results. Empiric antibiotic coverage of health care-acquired pneumonia with Zithromax and Zosyn. Pulmonary evaluation. Respiratory support. Bronchodilator and steroid treatment as per Pulmonary. Case discussed with patient's present at the time of the examination in the emergency room. Prognosis is guarded. Critical care time spent: 35 minutes. QUIANA HAMMONDS M.D. LUZMARIA/[id number]
[2016-12-17 08:19] LABS: MCH 30.9 pg (25.7-33.7); MCHC 33.5 g/dl (32.0-35.9); MEAN CELL VOLUME 92.2 fl (80-96); MEAN PLT VOLUME 8.8 fl (7.5-11.1); PLATELET COUNT 248 K/MM3 (134-434); RDW 14.4 % (11.9-15.9); WHITE BLOOD COUNT 15.1 K/mm3 (4.0-10.0)
[2016-12-17 08:46] LABS: ALBUMIN 2.5 g/dl (3.4-5.0); CALCIUM 8.2 mg/dL (8.5-10.1)
[2016-12-17 08:49] LABS: BILIRUBIN,TOTAL 0.8 mg/dL (0.2-1.0); COCKROFT - GAULT 32.88; CREATININE 1.8 mg/dL (0.7-1.3); TOT PROT 5.9 g/dl (6.4-8.2)
--- NOTE | 2016-12-17 08:50 | PN ---
Progress Note, Physician History of Present Illness: FEELS MUCH BETTER NO CP OR SOB COUGH IMPROVED - Current Medication List Current Medications: Active Medications Albuterol/Ipratropium (Duoneb -) 1 amp NEB Q6H PRN PRN Reason: SHORTNESS OF BREATH Aspirin (Ecotrin -) 81 mg PO DAILY [facility] Clopidogrel Bisulfate (Plavix -) 75 mg PO DAILY [facility] Collagenase (Santyl -) 1 applic TP DAILY [facility] Furosemide (Lasix Injection -) 40 mg IVPB DAILY [facility] Last Admin: 12/16/16 17:00 Dose: 40 mg Azithromycin (Zithromax 500mg Ivpb (Pre-Docked)) 250 mls @ 250 mls/hr IVPB DAILY [facility] Piperacillin Sod/Tazobactam Sod (Zosyn 3.375gm Ivpb (Pre-Docked)) 50 mls @ 100 mls/hr IVPB Q8H-IV JONAS PRN Reason: Protocol Last Admin: 12/17/16 01:49 Dose: 100 mls/hr Insulin Aspart (Novolog Vial Sliding Scale -) 1 vial SQ ACHS [facility] PRN Reason: Protocol Last Admin: 12/17/16 06:23 Dose: 4 units Insulin Detemir (Levemir Vial) 20 units SQ HS [facility] Last Admin: 12/16/16 21:37 Dose: 20 units Pantoprazole Sodium (Protonix -) 40 mg PO DAILY [facility] Last Admin: 12/16/16 18:53 Dose: 40 mg Tamsulosin HCl (Flomax -) 0.4 mg PO DAILY@0830 [facility] - Objective Vital Signs: Vital Signs Temperature 97.9 F 12/17/16 06:00 Pulse Rate 61 12/17/16 06:00 Respiratory Rate 20 12/17/16 06:00 Blood Pressure 150/67 12/17/16 06:00 O2 Sat by Pulse Oximetry (%) 94 L 12/16/16 22:00 Cardiovascular: Yes: S1, S2 Respiratory: Yes: Rhonchi Gastrointestinal: Yes: Normal Bowel Sounds, Soft Extremities: Yes: Other (ECHYMOSIS OF THE RT GROIN) Edema: No Wound/Incision: Yes: Other (RT FOOT) Neurological: Yes: Alert, Oriented Labs: CBC, BMP 12/17/16 05:43 INR, PTT INR 1.12 (0.82-1.09) 12/16/16 12:00 Problem List - Problems (1) Pneumonia Assessment/Plan: IV ABX PER ID CT OF CHEST CULTURES Code(s): J18.9 - PNEUMONIA, UNSPECIFIED ORGANISM Qualifiers: Pneumonia type: due to unspecified organism Laterality: bilateral Lung location: unspecified part of lung Qualified Code(s): J18.9 - Pneumonia , unspecified organism (2) CKD (chronic kidney disease) Assessment/Plan: CR 1.8 MONITOR ON LASIX RENAL ON BOARD Code(s): N18.9 - CHRONIC KIDNEY DISEASE, UNSPECIFIED (3) CAD (coronary artery disease) Assessment/Plan: NO CP Code(s): I25.10 - ATHSCL HEART DISEASE OF [place] CORONARY ARTERY W/O ANG PCTRS Qualifiers: Associated angina: with unspecified angina (4) CHF (congestive heart failure) Assessment/Plan: ON LASIX BNP--HIGH CARDIO ECHO Code(s): I50.9 - HEART FAILURE, UNSPECIFIED Qualifiers: Congestive heart failure chronicity: acute on chronic (5) Diabetes Assessment/Plan: BGM--SS ENDO Code(s): E11.9 - TYPE 2 DIABETES MELLITUS WITHOUT COMPLICATIONS Qualifiers: Diabetes mellitus complication status: with other specified complication (6) PAD (peripheral artery disease) Assessment/Plan: S/P ANGIO GET RECORDS FROM [facility] Code(s): I73.9 - PERIPHERAL VASCULAR DISEASE, UNSPECIFIED
[2016-12-17] MEDS ORDERED: AZITHROMYCIN IVPB 250 ML IVPB SCH (10:00)
--- NOTE | 2016-12-17 10:03 | PN ---
Progress Note, Physician Chief Complaint: ID Feels better though still weak appearing Sobia Garcia Azithromycin - Current Medication List Current Medications: Active Medications Albuterol/Ipratropium (Duoneb -) 1 amp NEB Q6H PRN PRN Reason: SHORTNESS OF BREATH Aspirin (Ecotrin -) 81 mg PO DAILY [facility] Clopidogrel Bisulfate (Plavix -) 75 mg PO DAILY [facility] Collagenase (Santyl -) 1 applic TP DAILY [facility] Furosemide (Lasix Injection -) 40 mg IVPB DAILY [facility] Last Admin: 12/16/16 17:00 Dose: 40 mg Azithromycin (Zithromax 500mg Ivpb (Pre-Docked)) 250 mls @ 250 mls/hr IVPB DAILY [facility] Piperacillin Sod/Tazobactam Sod (Zosyn 3.375gm Ivpb (Pre-Docked)) 50 mls @ 100 mls/hr IVPB Q8H-IV JONAS PRN Reason: Protocol Last Admin: 12/17/16 01:49 Dose: 100 mls/hr Insulin Aspart (Novolog Vial Sliding Scale -) 1 vial SQ ACHS [facility] PRN Reason: Protocol Last Admin: 12/17/16 06:23 Dose: 4 units Insulin Detemir (Levemir Vial) 20 units SQ HS [facility] Last Admin: 12/16/16 21:37 Dose: 20 units Pantoprazole Sodium (Protonix -) 40 mg PO DAILY [facility] Last Admin: 12/16/16 18:53 Dose: 40 mg Tamsulosin HCl (Flomax -) 0.4 mg PO DAILY@0830 [facility] - Objective Vital Signs: Vital Signs Temperature 97.9 F 12/17/16 06:00 Pulse Rate 61 12/17/16 06:00 Respiratory Rate 20 12/17/16 06:00 Blood Pressure 150/67 12/17/16 06:00 O2 Sat by Pulse Oximetry (%) 94 L 12/16/16 22:00 Constitutional: Yes: Mild Distress Neck: Yes: WNL, Supple Cardiovascular: Yes: Regular Rate and Rhythm, S1, S2. No: Murmur Respiratory: Yes: WNL, Regular, CTA Bilaterally Gastrointestinal: Yes: WNL, Normal Bowel Sounds. No: Tenderness, Tenderness, Epigastrium Extremities: No: Cold, Cool, Cyanosis Edema: No Labs: CBC, BMP 12/17/16 05:43 12/17/16 05:43 INR, PTT INR 1.12 (0.82-1.09) 12/16/16 12:00 Assessment/Plan Microbiology Laboratory Tests 12/17/16 05:43 WBC 15.1 H Hgb 10.3 L Hct 30.8 L Plt Count 248 Assessment Empiric therapy HAP Bilateral airspace disease Improved CAD says recent angioplasty Plan Can stop Azithromycin Continue zosyn as ordered for now Jose CABELLO
[2016-12-17] MEDS: FUROSEMIDE 40 MG/4 ML INJECTABLE VIAL IVPB SCH (10:24)
[2016-12-17] MEDS: TAMSULOSIN HCL 0.4 MG CAP.ER.24H (FP) PO SCH (10:29)
[2016-12-17] MEDS: ASPIRIN COATED 81 MG TABLET.EC PO SCH (10:29)
[2016-12-17] MEDS: CLOPIDOGREL BISULFATE 75 MG TABLET (FP) PO SCH (10:29)
[2016-12-17] MEDS: PANTOPRAZOLE 40 MG TABLET (FP) PO SCH (10:29)
[2016-12-17] MEDS: COLLAGENASE CLOSTRIDIUM HIST. 30 GRAMS TUBE TP SCH (10:31)
--- NOTE | 2016-12-17 12:26 | PN ---
Progress Note (short form) - Note Progress Note: RENAL Pt is awake and laert comfortable c/o dyspnea on minimal exertion Last Vital Signs Temp Pulse Resp BP Pulse Ox 97.9 F 61 20 150/67 90 L 12/17/16 06:00 12/17/16 06:00 12/17/16 06:00 12/17/16 06:00 12/17/16 11:18 lungs clear cvs s1s2 rr abd soft ext no edema, has a an eschar on lateral malleolus on right, good dp pulse neuro a+ox3 Current Medications Generic Name Dose Route Start Last Admin Trade Name Freq PRN Reason Stop Dose Admin Albuterol/Ipratropium 1 amp 12/16/16 16:53 Duoneb - NEB Q6H PRN SHORTNESS OF BREATH Aspirin 81 mg 12/17/16 10:00 12/17/16 10:29 Ecotrin - PO 81 mg DAILY JONAS Administration Clopidogrel Bisulfate 75 mg 12/17/16 10:00 12/17/16 10:29 Plavix - PO 75 mg DAILY JONAS Administration Collagenase 1 applic 12/17/16 10:00 12/17/16 10:31 Santyl - TP Not Given DAILY JONAS Furosemide 40 mg 12/16/16 17:00 12/17/16 10:24 Lasix Injection - IVPB 40 mg DAILY JONAS Administration Heparin Sodium (Porcine) 5,000 unit 12/17/16 22:00 Heparin - SQ BID JONAS Piperacillin Sod/Tazobactam Sod 50 mls @ 100 mls/hr 12/16/16 18:00 12/17/16 10: 32 Zosyn 3.375gm Ivpb (Pre-Docked) IVPB 100 mls/hr Q8H-IV JONAS Administration Protocol Insulin Aspart 1 vial 12/16/16 22:00 12/17/16 06:23 Novolog Vial Sliding Scale - SQ 4 units ACHS JONAS Administration Protocol Insulin Detemir 20 units 12/16/16 22:00 12/16/16 21:37 Levemir Vial SQ 20 units HS JONAS Administration Pantoprazole Sodium 40 mg 12/16/16 17:00 12/17/16 10:29 Protonix - PO 40 mg DAILY JONAS Administration Tamsulosin HCl 0.4 mg 12/17/16 08:30 12/17/16 10:29 Flomax - PO 0.4 mg DAILY@0830 JONAS Administration CBC, BMP 12/17/16 05:43 12/17/16 05:43 Impression 1. CKD 2. hx CVA 3. CAD 4. DM 5. BPH 6. chol 7. PVD 8. s/p angio of the right leg with stenting 9. PNA 10. dyspnea 11. lactic acidosis Plan - cont with lasix - rick better, avoid nephrotoxins - consider pulmonary evaluation MV
[2016-12-17] MEDS: ALBUTEROL SO4 2.5/IPRATROPIUM 0.5 INH SOL 3 ML VIAL.NEB. NEB PRN (13:27)
--- NOTE | 2016-12-17 13:32 | CON.CARD ---
Consult Consult Specialty:: Cardiology Referred by:: Asim Reason for Consultation:: chf, CAD - History of Present Illness Chief Complaint: sob History of Present Illness: he is an 81 year old man history of NIDDM, CAD s/p CABG at [facility], BPH, CKD, pneumonia, chronic systolic CHF who was recently admitted at [facility] for PVD and leg ulcer s/p angio complicated by ATN resolved now admitted with sob and fluid overload. Less sob after lasix. No chest pain. # pillow orthopnea. no edema. 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 Cardio/Vascular: Yes: CAD, Other (CABG/PCI STENT 2) Gastrointestinal: Yes: Other Renal/: Yes: BPH, UTI Endocrine: Yes: Diabetes Mellitus - Past Surgical History Past Surgical History: Yes: CABG, TURP - Alcohol/Substance Use Hx Alcohol Use: No History of Substance Use: reports: None - Smoking History Smoking history: Never smoked Have you smoked in the past 12 months: No - Social History ADL: Independent History of Recent Travel: No Home Medications - Allergies Allergies/Adverse Reactions: Allergies Allergy/AdvReac Type Severity Reaction Status Date / Time No Known Allergies Allergy Verified 08/05/16 12:46 - Home Medications Home Medications: Ambulatory Orders Aspirin [ASA -] 81 mg PO DAILY tab.chew 08/10/16 Budesonide [Pulmicort 0.25 mg -] 1 neb PO BID 12/16/16 Clopidogrel Bisulfate [Plavix -] 75 mg PO DAILY 12/16/16 Collagenase Clostridium Hist. [Santyl] 1 applic TP DAILY 12/16/16 Flunisolide 25 ml NS BID 12/16/16 Heparin - 5,000 unit SQ BID 12/16/16 Insulin Glargine,Hum.rec.anlog [Lantus (nf)] 40 units SQ HS 12/16/16 Insulin Lispro [Humalog] 0 unit SQ AC 12/16/16 Ipratropium/Albuterol Sulfate [Iprat-Albut 0.5-3(2.5) mg/3 ml] 3 ml IH QID 12/16 Oxycodone HCl/Acetaminophen [Oxycodone-Acetaminophen 5-325] 1 each PO QID PRN Pantoprazole Sodium 40 mg PO DAILY 12/16/16 Prednisone [Deltasone -] 20 mg PO DAILY 12/16/16 Sennosides [Senokot] 8.6 mg PO HS 12/16/16 Tamsulosin HCl [Flomax] 0.4 mg PO DAILY 12/16/16 Vital Signs: Vital Signs Temperature 97.9 F 12/17/16 06:00 Pulse Rate 61 12/17/16 06:00 Respiratory Rate 20 12/17/16 06:00 Blood Pressure 150/67 12/17/16 06:00 O2 Sat by Pulse Oximetry (%) 90 L 12/17/16 11:18 Constitutional: Yes: No Distress, Calm Eyes: Yes: Conjunctiva Clear, EOM Intact HENT: Yes: Atraumatic, Normocephalic Neck: Yes: Supple, Trachea Midline Respiratory: Yes: Rales (bilat bases) Gastrointestinal: Yes: Normal Bowel Sounds, Soft Cardiovascular: Yes: Regular Rate and Rhythm JVD: Yes Carotid Bruit: No PMI: Displaced Heart Sounds: Yes: S1, S2 Murmur: Yes: Systolic Murmur, Grade 2 Extremities: Yes: WNL Edema: No Peripheral Pulses WNL: No - Other Data Labs, Other Data: CBC, BMP 12/17/16 05:43 12/17/16 05:43 INR, PTT INR 1.12 (0.82-1.09) 12/16/16 12:00 bnp 16,600 Imaging - Results X-ray: Report Reviewed (rt>lt pneumonia) EKG: Pending Problem List - Problems (1) CHF (congestive heart failure) Assessment/Plan: Acute on chronic systolic chf. Probably exacerbated by decrease in Lasix after ATN. continue IV lasix, may need higher dose. daily weights. follow renal function. repeat echo is pending. repeat bnp in a few days. fluid and salt restriction. Hold off on ACEI or ARB for now. Can use hydralazine/imdur if bp tolerates. will follow with you. Code(s): I50.9 - HEART FAILURE, UNSPECIFIED Qualifiers: Congestive heart failure type: systolic Congestive heart failure chronicity: acute on chronic Qualified Code(s): I50.23 - Acute on chronic systolic (congestive) heart failure
--- NOTE | 2016-12-17 13:57 | CON.PULM ---
Consult Consult Specialty:: PULM/CCM Referred by:: GENA Reason for Consultation:: SOB - History of Present Illness Chief Complaint: SOB History of Present Illness: 81 M, DM, CKD, PAD, CHF, CAD with CABG, BPH and CVA. Admitted via the ER due to acute respiratory distress. He was recently at [facility] where he developed USHA. He was also treated for decompensated CHF. No travel history or sick contacts. No clear symptoms of fever or chills. No hemoptysis. CXR : Diffuse bilateral infiltrates more consistent with CHF rather than PNA. 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 Cardio/Vascular: Yes: CAD, Other (CABG/PCI STENT 2) Gastrointestinal: Yes: Other Renal/: Yes: BPH, UTI Endocrine: Yes: Diabetes Mellitus - Past Surgical History Past Surgical History: Yes: CABG, TURP - Alcohol/Substance Use Hx Alcohol Use: No History of Substance Use: reports: None - Smoking History Smoking history: Never smoked Have you smoked in the past 12 months: No - Social History ADL: Independent History of Recent Travel: No Home Medications - Allergies Allergies/Adverse Reactions: Allergies Allergy/AdvReac Type Severity Reaction Status Date / Time No Known Allergies Allergy Verified 08/05/16 12:46 - Home Medications Home Medications: Ambulatory Orders Aspirin [ASA -] 81 mg PO DAILY tab.chew 08/10/16 Budesonide [Pulmicort 0.25 mg -] 1 neb PO BID 12/16/16 Clopidogrel Bisulfate [Plavix -] 75 mg PO DAILY 12/16/16 Collagenase Clostridium Hist. [Santyl] 1 applic TP DAILY 12/16/16 Flunisolide 25 ml NS BID 12/16/16 Heparin - 5,000 unit SQ BID 12/16/16 Insulin Glargine,Hum.rec.anlog [Lantus (nf)] 40 units SQ HS 12/16/16 Insulin Lispro [Humalog] 0 unit SQ AC 12/16/16 Ipratropium/Albuterol Sulfate [Iprat-Albut 0.5-3(2.5) mg/3 ml] 3 ml IH QID 12/16 Oxycodone HCl/Acetaminophen [Oxycodone-Acetaminophen 5-325] 1 each PO QID PRN Pantoprazole Sodium 40 mg PO DAILY 12/16/16 Prednisone [Deltasone -] 20 mg PO DAILY 12/16/16 Sennosides [Senokot] 8.6 mg PO HS 12/16/16 Tamsulosin HCl [Flomax] 0.4 mg PO DAILY 12/16/16 Review of Systems - Review of Systems Constitutional: reports: Malaise, Weakness. denies: Chills, Night Sweats, Unintentional Wgt. Loss Eyes: reports: No Symptoms HENT: reports: No Symptoms Neck: reports: No Symptoms Cardiovascular: reports: Shortness of Breath. denies: Chest Pain, Palpitations Respiratory: reports: Cough, SOB, SOB on Exertion. denies: Hemoptysis, Wheezing Gastrointestinal: reports: No Symptoms Genitourinary: reports: No Symptoms Musculoskeletal: reports: Back Pain Integumentary: reports: No Symptoms Neurological: reports: No Symptoms Endocrine: reports: No Symptoms Hematology/Lymphatic: reports: No Symptoms Psychiatric: reports: No Symptoms Physical Exam Vital Sings: Vital Signs Temperature 97.9 F 12/17/16 06:00 Pulse Rate 61 12/17/16 06:00 Respiratory Rate 20 12/17/16 06:00 Blood Pressure 150/67 12/17/16 06:00 O2 Sat by Pulse Oximetry (%) 90 L 12/17/16 11:18 Constitutional: Yes: No Distress Eyes: Yes: Conjunctiva Clear, EOM Intact HENT: Yes: Atraumatic, Normocephalic Neck: Yes: Supple, Trachea Midline Cardiovascular: Yes: Regular Rate and Rhythm Respiratory: Yes: On Nasal O2, Rales, Rhonchi, SOB on Exertion. No: Accessory Muscle Use, Stridor, Tachypnea, Wheezes ...Inspection: Yes: WNL ...Clubbing: No Gastrointestinal: Yes: WNL, Normal Bowel Sounds, Soft Renal/: Yes: WNL Musculoskeletal: Yes: WNL Extremities: Yes: WNL Edema: No Peripheral Pulses WNL: Yes Integumentary: Yes: WNL Neurological: Yes: Alert, Oriented ...Motor Strength: WNL Psychiatric: Yes: WNL, Alert, Oriented Labs: CBC, BMP 12/17/16 05:43 12/17/16 05:43 ABG Results ABG pH 7.47 (7.35-7.45) H 12/16/16 13:50 ABG pCO2 at Pt Temp 36.0 mmHg (35-45) 12/16/16 13:50 ABG pO2 at Pt Temp 112.0 mmHg (68-100) H 12/16/16 13:50 ABG HCO3 25.7 meq/L (22-26) 12/16/16 13:50 ABG O2 Sat (Measured) 95.0 % (90-98.9) 12/16/16 13:50 ABG O2 Content 13.3 % vol (15-22) L 12/16/16 13:50 ABG Base Excess 2.4 meq/l (-2-2) H 12/16/16 13:50 Imaging - Results Chest X-ray: Report Reviewed, Image Reviewed Problem List - Problems (1) CKD (chronic kidney disease) Code(s): N18.9 - CHRONIC KIDNEY DISEASE, UNSPECIFIED (2) PAD (peripheral artery disease) Code(s): I73.9 - PERIPHERAL VASCULAR DISEASE, UNSPECIFIED (3) Pneumonia Code(s): J18.9 - PNEUMONIA, UNSPECIFIED ORGANISM Qualifiers: Pneumonia type: due to unspecified organism Laterality: bilateral Lung location: unspecified part of lung Qualified Code(s): J18.9 - Pneumonia, unspecified organism (4) Respiratory distress Code(s): R06.00 - DYSPNEA, UNSPECIFIED (5) Microcytic anemia Code(s): D50.9 - IRON DEFICIENCY ANEMIA, UNSPECIFIED (6) BPH (benign prostatic hyperplasia) Code(s): N40.0 - BENIGN PROSTATIC HYPERPLASIA WITHOUT LOWER URINRY TRACT SYMP (7) CAD (coronary artery disease) Code(s): I25.10 - ATHSCL HEART DISEASE OF [place] CORONARY ARTERY W/O ANG PCTRS Qualifiers: Associated angina: with unspecified angina (8) CHF (congestive heart failure) Code(s): I50.9 - HEART FAILURE, UNSPECIFIED Qualifiers: Congestive heart failure type: systolic Congestive heart failure chronicity: acute on chronic Qualified Code(s): I50.23 - Acute on chronic systolic (congestive) heart failure (9) Diabetes Code(s): E11.9 - TYPE 2 DIABETES MELLITUS WITHOUT COMPLICATIONS Qualifiers: Diabetes mellitus complication status: with other specified complication Assessment/Plan NIPPV as needed Lasix ABX per ID Daily weight I&O BD TX PRN Will follow Thank you. Dr Esparza
[2016-12-17] MEDS: INSULIN DETEMIR 100 UNITS/ML MDV SQ SCH (22:04)
[2016-12-17] MEDS: HEPARIN NA (PORCINE) 5,000 UNITS/ML 1ML VIAL SQ SCH (22:05)
--- NOTE | 2016-12-18 01:20 | CONSULT ---
Consult Consult Specialty:: endocrine Referred by:: dr.iyad kang Reason for Consultation:: iddm - History of Present Illness Chief Complaint: diificulty breathing higher sugars History of Present Illness: 1-year-old man with a significant past medical history of diabetes mellitus,non healing right ankle ulcer, coronary artery disease status post CABG, benign prostate hyperplasia who was recently admitted at [facility] in July for Pneumonia, now in [facility] for physical therapy who presents to the emergency department via EMS for further evaluation of respiratory distress this morning. 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 EQUIPMENT SPECIALIST: Yes: CVA, Syncope Cardio/Vascular: Yes: CAD, Other (CABG/PCI STENT 2) Gastrointestinal: Yes: Other Renal/: Yes: BPH, UTI Endocrine: Yes: Diabetes Mellitus - Past Surgical History Past Surgical History: Yes: CABG, TURP - Alcohol/Substance Use Hx Alcohol Use: No History of Substance Use: reports: None - Smoking History Smoking history: Never smoked Have you smoked in the past 12 months: No - Social History ADL: Independent History of Recent Travel: No Home Medications - Allergies Allergies/Adverse Reactions: Allergies Allergy/AdvReac Type Severity Reaction Status Date / Time No Known Allergies Allergy Verified 08/05/16 12:46 - Home Medications Home Medications: Ambulatory Orders Aspirin [ASA -] 81 mg PO DAILY tab.chew 08/10/16 Budesonide [Pulmicort 0.25 mg -] 1 neb PO BID 12/16/16 Clopidogrel Bisulfate [Plavix -] 75 mg PO DAILY 12/16/16 Collagenase Clostridium Hist. [Santyl] 1 applic TP DAILY 12/16/16 Flunisolide 25 ml NS BID 12/16/16 Heparin - 5,000 unit SQ BID 12/16/16 Insulin Glargine,Hum.rec.anlog [Lantus (nf)] 40 units SQ HS 12/16/16 Insulin Lispro [Humalog] 0 unit SQ AC 12/16/16 Ipratropium/Albuterol Sulfate [Iprat-Albut 0.5-3(2.5) mg/3 ml] 3 ml IH QID 12/16 Oxycodone HCl/Acetaminophen [Oxycodone-Acetaminophen 5-325] 1 each PO QID PRN Pantoprazole Sodium 40 mg PO DAILY 12/16/16 Prednisone [Deltasone -] 20 mg PO DAILY 12/16/16 Sennosides [Senokot] 8.6 mg PO HS 12/16/16 Tamsulosin HCl [Flomax] 0.4 mg PO DAILY 12/16/16 Review of Systems - Review of Systems Constitutional: reports: Lethargy, Weakness Eyes: reports: Recent Change in Vision HENT: reports: No Symptoms Neck: reports: No Symptoms Cardiovascular: reports: Palpitations, Shortness of Breath Respiratory: reports: Exercise Intolerance, SOB, SOB on Exertion Gastrointestinal: reports: Bloating Genitourinary: reports: No Symptoms Musculoskeletal: reports: Muscle Pain, Muscle Cramps, Muscle Weakness Integumentary: reports: No Symptoms Neurological: reports: Unsteady Gait, Weakness Endocrine: reports: Unexplained Weight Loss Physical Exam Vital Signs: Vital Signs Temperature 98.0 F 12/17/16 17:00 Pulse Rate 73 12/17/16 17:00 Respiratory Rate 18 12/17/16 17:00 Blood Pressure 107/44 12/17/16 17:00 O2 Sat by Pulse Oximetry (%) 93 L 12/17/16 18:40 Constitutional: Yes: Anxious Eyes: Yes: EOM Intact HENT: Yes: Normocephalic Neck: Yes: Trachea Midline Cardiovascular: Yes: Regular Rate and Rhythm Respiratory: Yes: On Nasal O2, Rales, SOB, Tachypnea Gastrointestinal: Yes: Normal Bowel Sounds ...Rectal Exam: Yes: Deferred Renal/: Yes: WNL Breast(s): Yes: WNL Musculoskeletal: Yes: Muscle Weakness Edema: No Integumentary: Yes: Onychomycosis Wound/Incision: Yes: Well Approximated, Dressing Dry and Intact Neurological: Yes: Alert, Oriented, Weakness Labs: CBC, BMP 12/17/16 05:43 12/17/16 05:43 Problem List - Problems (1) UTI (urinary tract infection) Code(s): N39.0 - URINARY TRACT INFECTION, SITE NOT SPECIFIED Qualifiers: Urinary tract infection type: acute cystitis (2) BPH (benign prostatic hyperplasia) Code(s): N40.0 - BENIGN PROSTATIC HYPERPLASIA WITHOUT LOWER URINRY TRACT SYMP (3) Diabetes mellitus, insulin dependent (IDDM), uncontrolled Code(s): E10.65 - TYPE 1 DIABETES MELLITUS WITH HYPERGLYCEMIA Qualifiers: 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 Assessment/Plan Current Active Problems CKD (chronic kidney disease) (Acute) PAD (peripheral artery disease) (Acute) Pneumonia (Acute) Respiratory distress (Acute) iddm /neuropathy hyperglycemia Abnormal Lab Results 12/16/16 12/17/16 12/17/16 21:45 05:43 05:43 WBC 15.1 H RBC 3.34 L Hgb 10.3 L Hct 30.8 L BUN 43 H Creatinine 1.8 H Random Glucose 221 H D Calcium 8.2 L Alkaline Phosphatase 126 H Total Protein 5.9 L Albumin 2.5 L Ur Specific [place] < 1.005 L Laboratory Results - last 24 hr 12/16/16 12/17/16 12/17/16 21:45 01:45 05:43 WBC 15.1 H RBC 3.34 L Hgb 10.3 L Hct 30.8 L MCV 92.2 MCHC 33.5 RDW 14.4 Plt Count 248 MPV 8.8 Sodium Potassium Chloride Carbon Dioxide Anion Gap BUN Creatinine Creat Clearance w eGFR POC Glucometer 339 Random Glucose Hemoglobin A1c % Calcium Total Bilirubin AST ALT Alkaline Phosphatase Total Protein Albumin Ur Specific [place] < 1.005 L 12/17/16 12/17/16 12/17/16 05:43 06:00 10:00 WBC RBC Hgb Hct MCV MCHC RDW Plt Count MPV Sodium 138 Potassium 4.1 Chloride 98 Carbon Dioxide 30 D Anion Gap 10 BUN 43 H Creatinine 1.8 H Creat Clearance w eGFR 36.30 POC Glucometer 227 Random Glucose 221 H D Hemoglobin A1c % Cancelled Calcium 8.2 L Total Bilirubin 0.8 AST 26 D ALT 52 D Alkaline Phosphatase 126 H Total Protein 5.9 L Albumin 2.5 L Ur Specific [place] 12/17/16 12/17/16 12/17/16 12:32 17:44 20:38 WBC RBC Hgb Hct MCV MCHC RDW Plt Count MPV Sodium Potassium Chloride Carbon Dioxide Anion Gap BUN Creatinine Creat Clearance w eGFR POC Glucometer 64 274 270 Random Glucose Hemoglobin A1c % Calcium Total Bilirubin AST ALT Alkaline Phosphatase Total Protein Albumin Ur Specific [place] plan:bgm achs novolog insulin dose Current Medications Generic Name Dose Route Start Last Admin Trade Name Freq PRN Reason Stop Dose Admin Albuterol/Ipratropium 1 amp 05/26/17 16:53 12/17/16 13:27 Duoneb - NEB 1 amp Q6H PRN Administration SHORTNESS OF BREATH Aspirin 81 mg 12/17/16 10:00 12/17/16 10:29 Ecotrin - PO 81 mg DAILY JONAS Administration Clopidogrel Bisulfate 75 mg 12/17/16 10:00 12/17/16 10:29 Plavix - PO 75 mg DAILY JONAS Administration Collagenase 1 applic 12/17/16 10:00 12/17/16 10:31 Santyl - TP Not Given DAILY JONAS Furosemide 40 mg 12/16/16 17:00 12/17/16 10:24 Lasix Injection - IVPB 40 mg DAILY JONAS Administration Heparin Sodium (Porcine) 5,000 unit 12/17/16 22:00 12/17/16 22:05 Heparin - SQ 5,000 unit BID JONAS Administration Piperacillin Sod/Tazobactam Sod 50 mls @ 100 mls/hr 12/16/16 18:00 12/17/16 17: 51 Zosyn 3.375gm Ivpb (Pre-Docked) IVPB 100 mls/hr Q8H-IV JONAS Administration Protocol Insulin Aspart 1 vial 12/16/16 22:00 12/17/16 22:05 Novolog Vial Sliding Scale - SQ 6 units ACHS JONAS Administration Protocol Insulin Detemir 20 units 12/16/16 22:00 12/17/16 22:04 Levemir Vial SQ 20 units HS JONAS Administration Pantoprazole Sodium 40 mg 12/16/16 17:00 12/17/16 10:29 Protonix - PO 40 mg DAILY JONAS Administration Tamsulosin HCl 0.4 mg 12/17/16 08:30 12/17/16 10:29 Flomax - PO 0.4 mg DAILY@0830 JONAS Administration change levemir to am dosing for less likely am low sugars
[2016-12-18] MEDS: PIPERACILLIN/TAZOB 3.375 GM 50 ML IVPB SCH ×2 (03:14→09:25)
[2016-12-18] MEDS: INSULIN SLIDING SCALE (NOVOLOG) 1 VIAL SQ SCH ×4 (06:20→21:51)
[2016-12-18] MEDS: INSULIN DETEMIR 100 UNITS/ML MDV SQ SCH (06:20)
[2016-12-18 07:54] LABS: BASOPHIL 0.1 % (0-2.0); EOSINOPHIL 2.5 % (0-4.5); MCH 30.6 pg (25.7-33.7); MCHC 33.6 g/dl (32.0-35.9); MEAN PLT VOLUME 8.7 fl (7.5-11.1); NEUTROPHILS 84.5 % (42.8-82.8); PLATELET COUNT 266 K/MM3 (134-434); RDW 14.5 % (11.9-15.9); WHITE BLOOD COUNT 11.7 K/mm3 (4.0-10.0)
[2016-12-18 08:19] LABS: ALBUMIN 2.3 g/dl (3.4-5.0); CALCIUM 7.8 mg/dL (8.5-10.1)
[2016-12-18 08:24] LABS: COCKROFT - GAULT 32.88; CREATININE 1.8 mg/dL (0.7-1.3); TOT PROT 5.7 g/dl (6.4-8.2)
[2016-12-18] MEDS: ASPIRIN COATED 81 MG TABLET.EC PO SCH (09:25)
[2016-12-18] MEDS: PANTOPRAZOLE 40 MG TABLET (FP) PO SCH (09:25)
[2016-12-18] MEDS: CLOPIDOGREL BISULFATE 75 MG TABLET (FP) PO SCH (09:25)
[2016-12-18] MEDS: HEPARIN NA (PORCINE) 5,000 UNITS/ML 1ML VIAL SQ SCH ×2 (09:26→21:51)
[2016-12-18] MEDS: FUROSEMIDE 40 MG/4 ML INJECTABLE VIAL IVPB SCH (09:26)
[2016-12-18] MEDS: TAMSULOSIN HCL 0.4 MG CAP.ER.24H (FP) PO SCH (09:26)
[2016-12-18] MEDS: COLLAGENASE CLOSTRIDIUM HIST. 30 GRAMS TUBE TP SCH (09:27)
--- NOTE | 2016-12-18 11:25 | PN ---
Progress Note (short form) - Note Progress Note: RENAL Pt is awake and alert comfortable c/o dyspnea on minimal exertion Last Vital Signs Temp Pulse Resp BP Pulse Ox 99.5 F 72 20 138/62 95 12/18/16 08:40 12/18/16 08:40 12/18/16 08:40 12/18/16 08:40 12/18/16 08:40 _jvd lungs clear cvs s1s2 rr abd soft ext no edema, has a an eschar on lateral malleolus on right, good dp pulse neuro a+ox3 CBC, BMP 12/18/16 05:40 12/18/16 05:40 Current Medications Generic Name Dose Route Start Last Admin Trade Name Freq PRN Reason Stop Dose Admin Albuterol/Ipratropium 1 amp 12/16/16 16:53 12/17/16 13:27 Duoneb - NEB 1 amp Q6H PRN Administration SHORTNESS OF BREATH Aspirin 81 mg 12/17/16 10:00 12/18/16 09:25 Ecotrin - PO 81 mg DAILY JONAS Administration Clopidogrel Bisulfate 75 mg 12/17/16 10:00 12/18/16 09:25 Plavix - PO 75 mg DAILY JONAS Administration Collagenase 1 applic 12/17/16 10:00 12/18/16 09:27 Santyl - TP Not Given DAILY JONAS Furosemide 40 mg 12/16/16 17:00 12/18/16 09:26 Lasix Injection - IVPB 40 mg DAILY JONAS Administration Heparin Sodium (Porcine) 5,000 unit 12/17/16 22:00 12/18/16 09:26 Heparin - SQ 5,000 unit BID JONAS Administration Piperacillin Sod/Tazobactam Sod 50 mls @ 100 mls/hr 12/16/16 18:00 12/18/16 09: 25 Zosyn 3.375gm Ivpb (Pre-Docked) IVPB 100 mls/hr Q8H-IV JONAS Administration Protocol Insulin Aspart 1 vial 12/16/16 22:00 12/18/16 06:20 Novolog Vial Sliding Scale - SQ Not Given ACHS [facility] Protocol Insulin Detemir 20 units 12/18/16 07:00 12/18/16 06:20 Levemir Vial SQ Not Given AM JONAS Pantoprazole Sodium 40 mg 12/16/16 17:00 12/18/16 09:25 Protonix - PO 40 mg DAILY JONAS Administration Tamsulosin HCl 0.4 mg 12/17/16 08:30 12/18/16 09:26 Flomax - PO 0.4 mg DAILY@0830 JONAS Administration Impression 1. CKD 2. hx CVA 3. CAD 4. DM 5. BPH 6. chol 7. PVD 8. s/p angio of the right leg with stenting 9. PNA 10. dyspnea 11. lactic acidosis Plan - cont with lasix - rick better, avoid nephrotoxins - pulmonary eval noted MV
--- NOTE | 2016-12-18 12:27 | PN ---
Progress Note, Physician History of Present Illness: FEELS MUCH BETTER NO CP OR SOB COUGH IMPROVED - Current Medication List Current Medications: Active Medications Albuterol/Ipratropium (Duoneb -) 1 amp NEB Q6H PRN PRN Reason: SHORTNESS OF BREATH Last Admin: 12/17/16 13:27 Dose: 1 amp Aspirin (Ecotrin -) 81 mg PO DAILY [facility] Last Admin: 12/18/16 09:25 Dose: 81 mg Clopidogrel Bisulfate (Plavix -) 75 mg PO DAILY [facility] Last Admin: 12/18/16 09:25 Dose: 75 mg Collagenase (Santyl -) 1 applic TP DAILY [facility] Last Admin: 12/18/16 09:27 Dose: Not Given Furosemide (Lasix Injection -) 40 mg IVPB DAILY [facility] Last Admin: 12/18/16 09:26 Dose: 40 mg Heparin Sodium (Porcine) (Heparin -) 5,000 unit SQ BID [facility] Last Admin: 12/18/16 09:26 Dose: 5,000 unit Piperacillin Sod/Tazobactam Sod (Zosyn 3.375gm Ivpb (Pre-Docked)) 50 mls @ 100 mls/hr IVPB Q8H-IV JONAS PRN Reason: Protocol Last Admin: 12/18/16 09:25 Dose: 100 mls/hr Insulin Aspart (Novolog Vial Sliding Scale -) 1 vial SQ ACHS [facility] PRN Reason: Protocol Last Admin: 12/18/16 11:20 Dose: 6 units Insulin Detemir (Levemir Vial) 20 units SQ AM [facility] Last Admin: 12/18/16 06:20 Dose: Not Given Pantoprazole Sodium (Protonix -) 40 mg PO DAILY [facility] Last Admin: 12/18/16 09:25 Dose: 40 mg Tamsulosin HCl (Flomax -) 0.4 mg PO DAILY@0830 [facility] Last Admin: 12/18/16 09:26 Dose: 0.4 mg - Objective Vital Signs: Vital Signs Temperature 99.5 F 12/18/16 08:40 Pulse Rate 72 12/18/16 08:40 Respiratory Rate 20 12/18/16 08:40 Blood Pressure 138/62 12/18/16 08:40 O2 Sat by Pulse Oximetry (%) 95 12/18/16 08:40 Cardiovascular: Yes: Regular Rate and Rhythm Respiratory: Yes: Rhonchi Gastrointestinal: Yes: Normal Bowel Sounds, Soft Labs: CBC, BMP 12/18/16 05:40 12/18/16 05:40 INR, PTT INR 1.12 (0.82-1.09) 12/16/16 12:00 Problem List - Problems (1) Pneumonia Assessment/Plan: IV ABX PER ID CT OF CHEST CULTURES Code(s): J18.9 - PNEUMONIA, UNSPECIFIED ORGANISM Qualifiers: Pneumonia type: due to unspecified organism Laterality: bilateral Lung location: unspecified part of lung Qualified Code(s): J18.9 - Pneumonia, unspecified organism (2) CKD (chronic kidney disease) Assessment/Plan: CR 1.8 MONITOR ON LASIX RENAL ON BOARD Code(s): N18.9 - CHRONIC KIDNEY DISEASE, UNSPECIFIED (3) CAD (coronary artery disease) Assessment/Plan: NO CP Code(s): I25.10 - ATHSCL HEART DISEASE OF [place] CORONARY ARTERY W/O ANG PCTRS Qualifiers: Associated angina: with unspecified angina (4) CHF (congestive heart failure) Assessment/Plan: ON LASIX BNP--HIGH CARDIO ECHO Code(s): I50.9 - HEART FAILURE, UNSPECIFIED Qualifiers: Congestive heart failure type: systolic Congestive heart failure chronicity: acute on chronic Qualified Code(s): I50.23 - Acute on chronic systolic (congestive) heart failure (5) Diabetes Assessment/Plan: BG--SS ENDO Code(s): E11.9 - TYPE 2 DIABETES MELLITUS WITHOUT COMPLICATIONS Qualifiers: Diabetes mellitus complication status: with other specified complication (6) PAD (peripheral artery disease) Assessment/Plan: S/P ANGIO GET RECORDS FROM [facility] Code(s): I73.9 - PERIPHERAL VASCULAR DISEASE, UNSPECIFIED
--- NOTE | 2016-12-18 15:29 | PN ---
Progress Note, Physician Chief Complaint: less sob. Still with intermittent fever. tele negative. History of Present Illness: he is an 81 year old man history of NIDDM, CAD s/p CABG at [facility], BPH, CKD, pneumonia, chronic systolic CHF who was recently admitted at [facility] for PVD and leg ulcer s/p angio complicated by ATN resolved now admitted with sob and fluid overload. Less sob after lasix. No chest pain. # pillow orthopnea. no edema. Echo pending - Current Medication List Current Medications: Active Medications Albuterol/Ipratropium (Duoneb -) 1 amp NEB Q6H PRN PRN Reason: SHORTNESS OF BREATH Last Admin: 12/17/16 13:27 Dose: 1 amp Aspirin (Ecotrin -) 81 mg PO DAILY [facility] Last Admin: 12/18/16 09:25 Dose: 81 mg Clopidogrel Bisulfate (Plavix -) 75 mg PO DAILY [facility] Last Admin: 12/18/16 09:25 Dose: 75 mg Collagenase (Santyl -) 1 applic TP DAILY [facility] Last Admin: 12/18/16 09:27 Dose: Not Given Furosemide (Lasix Injection -) 40 mg IVPB DAILY [facility] Last Admin: 12/18/16 09:26 Dose: 40 mg Heparin Sodium (Porcine) (Heparin -) 5,000 unit SQ BID [facility] Last Admin: 12/18/16 09:26 Dose: 5,000 unit Piperacillin Sod/Tazobactam Sod (Zosyn 3.375gm Ivpb (Pre-Docked)) 50 mls @ 100 mls/hr IVPB Q8H-IV JONAS PRN Reason: Protocol Last Admin: 12/18/16 09:25 Dose: 100 mls/hr Insulin Aspart (Novolog Vial Sliding Scale -) 1 vial SQ ACHS JONAS PRN Reason: Protocol Last Admin: 12/18/16 11:20 Dose: 6 units Insulin Detemir (Levemir Vial) 20 units SQ AM [facility] Last Admin: 12/18/16 06:20 Dose: Not Given Pantoprazole Sodium (Protonix -) 40 mg PO DAILY [facility] Last Admin: 12/18/16 09:25 Dose: 40 mg Tamsulosin HCl (Flomax -) 0.4 mg PO DAILY@0830 [facility] Last Admin: 12/18/16 09:26 Dose: 0.4 mg - Objective Vital Signs: Vital Signs Temperature 100.8 F H 12/18/16 15:14 Pulse Rate 83 12/18/16 15:14 Respiratory Rate 20 12/18/16 15:14 Blood Pressure 124/44 12/18/16 15:14 O2 Sat by Pulse Oximetry (%) 95 12/18/16 08:40 Constitutional: Yes: Well Nourished, No Distress Eyes: Yes: Conjunctiva Clear, EOM Intact HENT: Yes: Atraumatic, Normocephalic Neck: Yes: Supple, Trachea Midline Cardiovascular: Yes: Regular Rate and Rhythm, JVD Respiratory: Yes: Rales (bases) Gastrointestinal: Yes: Normal Bowel Sounds, Soft Extremities: Yes: WNL Edema: No Peripheral Pulses WNL: Yes Labs: CBC, BMP 12/18/16 05:40 12/18/16 05:40 INR, PTT INR 1.12 (0.82-1.09) 12/16/16 12:00 Problem List - Problems (1) CHF (congestive heart failure) Assessment/Plan: Acute on chronic systolic chf. Probably exacerbated by decrease in Lasix after ATN. continue IV lasix, may need higher dose. daily weights. follow renal function. repeat echo is pending. repeat bnp in 1-2 days. fluid and salt restriction. Hold off on ACEI or ARB for now. Can use hydralazine/imdur if bp tolerates. will follow with you. Code(s): I50.9 - HEART FAILURE, UNSPECIFIED Qualifiers: Congestive heart failure type: systolic Congestive heart failure chronicity: acute on chronic Qualified Code(s): I50.23 - Acute on chronic systolic (congestive) heart failure
--- NOTE | 2016-12-18 16:56 | PN ---
Progress Note (short form) - Note Progress Note: Clinically looks better. Less SOB. On NC O2. Did not require NIPPV. Intake & Output 12/15/16 12/16/16 12/17/16 12/18/16 23:59 23:59 23:59 23:59 Intake Total 470 460 510 Balance 470 460 510 Weight 162 lb 160 lb 6.4 oz Last Vital Signs Temp Pulse Resp BP Pulse Ox 100.8 F H 83 20 124/44 95 12/18/16 15:14 12/18/16 15:14 12/18/16 15:14 12/18/16 15:14 12/18/16 08:40 Active Medications Albuterol/Ipratropium (Duoneb -) 1 amp NEB Q6H PRN PRN Reason: SHORTNESS OF BREATH Last Admin: 12/17/16 13:27 Dose: 1 amp Aspirin (Ecotrin -) 81 mg PO DAILY [facility] Last Admin: 12/18/16 09:25 Dose: 81 mg Clopidogrel Bisulfate (Plavix -) 75 mg PO DAILY [facility] Last Admin: 12/18/16 09:25 Dose: 75 mg Collagenase (Santyl -) 1 applic TP DAILY [facility] Last Admin: 12/18/16 09:27 Dose: Not Given Furosemide (Lasix Injection -) 40 mg IVPB DAILY [facility] Last Admin: 12/18/16 09:26 Dose: 40 mg Heparin Sodium (Porcine) (Heparin -) 5,000 unit SQ BID [facility] Last Admin: 12/18/16 09:26 Dose: 5,000 unit Piperacillin Sod/Tazobactam Sod (Zosyn 3.375gm Ivpb (Pre-Docked)) 50 mls @ 100 mls/hr IVPB Q8H-IV JONAS PRN Reason: Protocol Last Admin: 12/18/16 09:25 Dose: 100 mls/hr Insulin Aspart (Novolog Vial Sliding Scale -) 1 vial SQ ACHS JONAS PRN Reason: Protocol Last Admin: 12/18/16 16:16 Dose: 2 units Insulin Detemir (Levemir Vial) 20 units SQ AM [facility] Last Admin: 12/18/16 06:20 Dose: Not Given Pantoprazole Sodium (Protonix -) 40 mg PO DAILY [facility] Last Admin: 12/18/16 09:25 Dose: 40 mg Tamsulosin HCl (Flomax -) 0.4 mg PO DAILY@0830 [facility] Last Admin: 12/18/16 09:26 Dose: 0.4 mg Constitutional: Yes: No Distress Eyes: Yes: Conjunctiva Clear, EOM Intact HENT: Yes: Atraumatic, Normocephalic Neck: Yes: Supple, Trachea Midline Cardiovascular: Yes: Regular Rate and Rhythm Respiratory: Yes: On Nasal O2, Rales, Rhonchi, SOB on Exertion. No: Accessory Muscle Use, Stridor, Tachypnea, Wheezes ...Inspection: Yes: WNL ...Clubbing: No Gastrointestinal: Yes: WNL, Normal Bowel Sounds, Soft Renal/: Yes: WNL Musculoskeletal: Yes: WNL Extremities: Yes: WNL Edema: No Peripheral Pulses WNL: Yes Integumentary: Yes: WNL Neurological: Yes: Alert, Oriented ...Motor Strength: WNL Psychiatric: Yes: WNL, Alert, Oriented Labs: Laboratory Results - last 24 hr 12/17/16 12/17/16 12/18/16 17:44 20:38 05:01 WBC RBC Hgb Hct MCV MCHC RDW Plt Count MPV Neutrophils % Lymphocytes % Monocytes % Eosinophils % Basophils % Sodium Potassium Chloride Carbon Dioxide Anion Gap BUN Creatinine Creat Clearance w eGFR POC Glucometer 274 270 113 Random Glucose Lactic Acid Calcium Total Bilirubin AST ALT Alkaline Phosphatase Total Protein Albumin 12/18/16 12/18/16 12/18/16 05:40 05:40 05:40 WBC 11.7 H RBC 3.45 L Hgb 10.5 L Hct 31.4 L MCV 91.0 MCHC 33.6 RDW 14.5 Plt Count 266 MPV 8.7 Neutrophils % 84.5 H Lymphocytes % 9.1 D Monocytes % 3.8 Eosinophils % 2.5 Basophils % 0.1 Sodium 138 Potassium 3.9 Chloride 96 L Carbon Dioxide 29 Anion Gap 13 BUN 33 H D Creatinine 1.8 H Creat Clearance w eGFR 36.30 POC Glucometer Random Glucose 150 H D Lactic Acid 1.6 Calcium 7.8 L Total Bilirubin 1.0 D AST 24 ALT 42 Alkaline Phosphatase 131 H Total Protein 5.7 L Albumin 2.3 L 12/18/16 12/18/16 11:04 16:10 WBC RBC Hgb Hct MCV MCHC RDW Plt Count MPV Neutrophils % Lymphocytes % Monocytes % Eosinophils % Basophils % Sodium Potassium Chloride Carbon Dioxide Anion Gap BUN Creatinine Creat Clearance w eGFR POC Glucometer 238 210 Random Glucose Lactic Acid Calcium Total Bilirubin AST ALT Alkaline Phosphatase Total Protein Albumin Problem List - Problems (1) CKD (chronic kidney disease) Code(s): N18.9 - CHRONIC KIDNEY DISEASE, UNSPECIFIED (2) PAD (peripheral artery disease) Code(s): I73.9 - PERIPHERAL VASCULAR DISEASE, UNSPECIFIED (3) Pneumonia Code(s): J18.9 - PNEUMONIA, UNSPECIFIED ORGANISM Qualifiers: Pneumonia type: due to unspecified organism Laterality: bilateral Lung location: unspecified part of lung Qualified Code(s): J18.9 - Pneumonia, unspecified organism (4) Respiratory distress Code(s): R06.00 - DYSPNEA, UNSPECIFIED (5) Microcytic anemia Code(s): D50.9 - IRON DEFICIENCY ANEMIA, UNSPECIFIED (6) BPH (benign prostatic hyperplasia) Code(s): N40.0 - BENIGN PROSTATIC HYPERPLASIA WITHOUT LOWER URINRY TRACT SYMP (7) CAD (coronary artery disease) Code(s): I25.10 - ATHSCL HEART DISEASE OF [place] CORONARY ARTERY W/O ANG PCTRS Qualifiers: Associated angina: with unspecified angina (8) CHF (congestive heart failure) Code(s): I50.9 - HEART FAILURE, UNSPECIFIED Qualifiers: Congestive heart failure type: systolic Congestive heart failure chronicity: acute on chronic Qualified Code(s): I50.23 - Acute on chronic systolic (congestive) heart failure (9) Diabetes Code(s): E11.9 - TYPE 2 DIABETES MELLITUS WITHOUT COMPLICATIONS Qualifiers: Diabetes mellitus complication status: with other specified complication Assessment/Plan O2 as needed to maintain saturation Lasix ABX per ID Daily weight I&O BD TX PRN Dr Esparza Problem List - Problems (1) CKD (chronic kidney disease) Code(s): N18.9 - CHRONIC KIDNEY DISEASE, UNSPECIFIED (2) PAD (peripheral artery disease) Code(s): I73.9 - PERIPHERAL VASCULAR DISEASE, UNSPECIFIED (3) Pneumonia Code(s): J18.9 - PNEUMONIA, UNSPECIFIED ORGANISM Qualifiers: Pneumonia type: due to unspecified organism Laterality: bilateral Lung location: unspecified part of lung Qualified Code(s): J18.9 - Pneumonia, unspecified organism (4) Respiratory distress Code(s): R06.00 - DYSPNEA, UNSPECIFIED (5) Microcytic anemia Code(s): D50.9 - IRON DEFICIENCY ANEMIA, UNSPECIFIED (6) BPH (benign prostatic hyperplasia) Code(s): N40.0 - BENIGN PROSTATIC HYPERPLASIA WITHOUT LOWER URINRY TRACT SYMP (7) CAD (coronary artery disease) Code(s): I25.10 - ATHSCL HEART DISEASE OF [place] CORONARY ARTERY W/O ANG PCTRS Qualifiers: Associated angina: with unspecified angina (8) CHF (congestive heart failure) Code(s): I50.9 - HEART FAILURE, UNSPECIFIED Qualifiers: Congestive heart failure type: systolic Congestive heart failure chronicity: acute on chronic Qualified Code(s): I50.23 - Acute on chronic systolic (congestive) heart failure (9) Diabetes Code(s): E11.9 - TYPE 2 DIABETES MELLITUS WITHOUT COMPLICATIONS Qualifiers: Diabetes mellitus complication status: with other specified complication
[2016-12-18] MEDS: ALBUTEROL SO4 2.5/IPRATROPIUM 0.5 INH SOL 3 ML VIAL.NEB. NEB PRN (21:50)
--- NOTE | 2016-12-18 22:12 | EKG ---
Test Reason : Blood Pressure : / mmHG Vent. Rate : 083 BPM Atrial Rate : 083 BPM P-R Int : 000 ms QRS Dur : 084 ms QT Int : 400 ms P-R-T Axes : 000 057 079 degrees QTc Int : 470 ms POSSIBLE WANDERING ATRIAL PACEMAKER VS. ATRIAL FIBRILLATION ANTEROSEPTAL INFARCT (CITED ON OR BEFORE 05-AUG-2016) ABNORMAL ECG WHEN COMPARED WITH ECG OF 05-AUG-2016 13:07, ABOVE RHYTHM HAS REPLACED SINUS RHYTHM Confirmed by CHRIS RINCON MD ([id number]) on 12/18/2016 10:12:21 PM Referred By: Confirmed By:CHRIS RINCON MD
[2016-12-19] MEDS: PIPERACILLIN/TAZOB 3.375 GM 50 ML IVPB SCH ×4 (01:47→18:02)
[2016-12-19] MEDS: INSULIN SLIDING SCALE (NOVOLOG) 1 VIAL SQ SCH ×4 (06:20→22:07)
[2016-12-19] MEDS: INSULIN DETEMIR 100 UNITS/ML MDV SQ SCH (06:21)
[2016-12-19] MEDS: TAMSULOSIN HCL 0.4 MG CAP.ER.24H (FP) PO SCH (09:17)
[2016-12-19] MEDS: PANTOPRAZOLE 40 MG TABLET (FP) PO SCH (09:17)
[2016-12-19] MEDS: HEPARIN NA (PORCINE) 5,000 UNITS/ML 1ML VIAL SQ SCH (09:18)
[2016-12-19] MEDS: CLOPIDOGREL BISULFATE 75 MG TABLET (FP) PO SCH (09:18)
[2016-12-19] MEDS: ASPIRIN COATED 81 MG TABLET.EC PO SCH (09:18)
[2016-12-19] MEDS: FUROSEMIDE 40 MG/4 ML INJECTABLE VIAL IVPB SCH (09:18)
[2016-12-19] MEDS: COLLAGENASE CLOSTRIDIUM HIST. 30 GRAMS TUBE TP SCH (09:31)
--- NOTE | 2016-12-19 10:18 | PN ---
Progress Note, Physician History of Present Illness: pulmonary alert,less dyspneic,c/o r sided cp - Current Medication List Current Medications: Active Medications Albuterol/Ipratropium (Duoneb -) 1 amp NEB Q6H PRN PRN Reason: SHORTNESS OF BREATH Last Admin: 12/18/16 21:50 Dose: 1 amp Aspirin (Ecotrin -) 81 mg PO DAILY [facility] Last Admin: 12/19/16 09:18 Dose: 81 mg Clopidogrel Bisulfate (Plavix -) 75 mg PO DAILY [facility] Last Admin: 12/19/16 09:18 Dose: 75 mg Collagenase (Santyl -) 1 applic TP DAILY [facility] Last Admin: 12/19/16 09:31 Dose: Not Given Furosemide (Lasix Injection -) 40 mg IVPB DAILY [facility] Last Admin: 12/19/16 09:18 Dose: 40 mg Heparin Sodium (Porcine) (Heparin -) 5,000 unit SQ BID [facility] Last Admin: 12/19/16 09:18 Dose: 5,000 unit Piperacillin Sod/Tazobactam Sod (Zosyn 3.375gm Ivpb (Pre-Docked)) 50 mls @ 100 mls/hr IVPB Q8H-IV [facility] PRN Reason: Protocol Last Admin: 12/19/16 09:17 Dose: 100 mls/hr Insulin Aspart (Novolog Vial Sliding Scale -) 1 vial SQ ACHS [facility] PRN Reason: Protocol Last Admin: 12/19/16 06:20 Dose: 2 units Insulin Detemir (Levemir Vial) 20 units SQ AM [facility] Last Admin: 12/19/16 06:21 Dose: 20 units Pantoprazole Sodium (Protonix -) 40 mg PO DAILY [facility] Last Admin: 12/19/16 09:17 Dose: 40 mg Tamsulosin HCl (Flomax -) 0.4 mg PO DAILY@0830 [facility] Last Admin: 12/19/16 09:17 Dose: 0.4 mg - Objective Vital Signs: Vital Signs Temperature 99.5 F 12/19/16 06:00 Pulse Rate 75 12/19/16 06:00 Respiratory Rate 20 12/19/16 06:00 Blood Pressure 146/73 12/19/16 06:00 O2 Sat by Pulse Oximetry (%) 95 12/18/16 22:00 Constitutional: Yes: Well Nourished, Calm Eyes: Yes: WNL HENT: Yes: WNL Neck: Yes: WNL Cardiovascular: Yes: Regular Rate and Rhythm, S1, S2 Respiratory: Yes: Rales (christine crackles with few scattered rhonchi) Gastrointestinal: Yes: Normal Bowel Sounds, Soft Extremities: Yes: WNL Edema: No Labs: CBC, BMP 12/18/16 05:40 12/18/16 05:40 INR, PTT INR 1.12 (0.82-1.09) 12/16/16 12:00 Assessment/Plan Problem List - Problems (1) CKD (chronic kidney disease) Code(s): N18.9 - CHRONIC KIDNEY DISEASE, UNSPECIFIED (2) PAD (peripheral artery disease) Code(s): I73.9 - PERIPHERAL VASCULAR DISEASE, UNSPECIFIED (3) Pneumonia Code(s): J18.9 - PNEUMONIA, UNSPECIFIED ORGANISM Qualifiers: Pneumonia type: due to unspecified organism Laterality: bilateral Lung location: unspecified part of lung Qualified Code(s): J18.9 - Pneumonia, unspecified organism (4) Respiratory distress Code(s): R06.00 - DYSPNEA, UNSPECIFIED (5) Microcytic anemia Code(s): D50.9 - IRON DEFICIENCY ANEMIA, UNSPECIFIED (6) BPH (benign prostatic hyperplasia) Code(s): N40.0 - BENIGN PROSTATIC HYPERPLASIA WITHOUT LOWER URINRY TRACT SYMP (7) CAD (coronary artery disease) Code(s): I25.10 - ATHSCL HEART DISEASE OF [place] CORONARY ARTERY W/O ANG PCTRS Qualifiers: Associated angina: with unspecified angina (8) CHF (congestive heart failure) Code(s): I50.9 - HEART FAILURE, UNSPECIFIED Qualifiers: Congestive heart failure type: systolic Congestive heart failure chronicity: acute on chronic Qualified Code(s): I50.23 - Acute on chronic systolic (congestive) heart failure (9) Diabetes Code(s): E11.9 - TYPE 2 DIABETES MELLITUS WITHOUT COMPLICATIONS Qualifiers: Diabetes mellitus complication status: with other specified complication Assessment/Plan O2 as needed to maintain saturation Lasix ABX per ID Daily weight I&O BD TX Chest ct Dr Tyler
--- NOTE | 2016-12-19 11:43 | PN ---
Progress Note, Physician History of Present Illness: Awake, alert Dyspneic on NRB mask No c/o chest pain or dyspnea Temp 101 past 24hr WBC improved - Current Medication List Current Medications: Active Medications Albuterol/Ipratropium (Duoneb -) 1 amp NEB Q6H PRN PRN Reason: SHORTNESS OF BREATH Last Admin: 12/18/16 21:50 Dose: 1 amp Aspirin (Ecotrin -) 81 mg PO DAILY [facility] Last Admin: 12/19/16 09:18 Dose: 81 mg Clopidogrel Bisulfate (Plavix -) 75 mg PO DAILY [facility] Last Admin: 12/19/16 09:18 Dose: 75 mg Collagenase (Santyl -) 1 applic TP DAILY [facility] Last Admin: 12/19/16 09:31 Dose: Not Given Furosemide (Lasix Injection -) 40 mg IVPB DAILY [facility] Last Admin: 12/19/16 09:18 Dose: 40 mg Heparin Sodium (Porcine) (Heparin -) 5,000 unit SQ BID [facility] Last Admin: 12/19/16 09:18 Dose: 5,000 unit Piperacillin Sod/Tazobactam Sod (Zosyn 3.375gm Ivpb (Pre-Docked)) 50 mls @ 100 mls/hr IVPB Q8H-IV [facility] PRN Reason: Protocol Last Admin: 12/19/16 09:17 Dose: 100 mls/hr Insulin Aspart (Novolog Vial Sliding Scale -) 1 vial SQ ACHS [facility] PRN Reason: Protocol Last Admin: 12/19/16 06:20 Dose: 2 units Insulin Detemir (Levemir Vial) 20 units SQ AM [facility] Last Admin: 12/19/16 06:21 Dose: 20 units Pantoprazole Sodium (Protonix -) 40 mg PO DAILY [facility] Last Admin: 12/19/16 09:17 Dose: 40 mg Tamsulosin HCl (Flomax -) 0.4 mg PO DAILY@0830 [facility] Last Admin: 12/19/16 09:17 Dose: 0.4 mg - Objective Vital Signs: Vital Signs Temperature 99.5 F 12/19/16 06:00 Pulse Rate 75 12/19/16 06:00 Respiratory Rate 20 12/19/16 06:00 Blood Pressure 146/73 12/19/16 06:00 O2 Sat by Pulse Oximetry (%) 95 12/18/16 22:00 Constitutional: Yes: No Distress Cardiovascular: Yes: Regular Rate and Rhythm, S1, S2 Respiratory: Yes: Diminished Gastrointestinal: Yes: Normal Bowel Sounds, Soft, Abdomen, Obese. No: Tenderness Extremities: Yes: Other (+ necrotic ulcer R lateral malleolus) Labs: CBC, BMP 12/18/16 05:40 12/18/16 05:40 INR, PTT INR 1.12 (0.82-1.09) 12/16/16 12:00 Assessment/Plan CHF Possible bilateral pneumonia Leukocytosis Azotemia R foot ulcer Continue empiric zosyn Local wound care
--- NOTE | 2016-12-19 12:14 | PN ---
Progress Note, Physician History of Present Illness: FEELS MUCH BETTER NO CP SOB WITH EXERTION COUGH IMPROVED - Current Medication List Current Medications: Active Medications Albuterol/Ipratropium (Duoneb -) 1 amp NEB Q6H PRN PRN Reason: SHORTNESS OF BREATH Last Admin: 12/18/16 21:50 Dose: 1 amp Aspirin (Ecotrin -) 81 mg PO DAILY [facility] Last Admin: 12/19/16 09:18 Dose: 81 mg Bacitracin (Bacitracin -) 1 applic TP DAILY [facility] Clopidogrel Bisulfate (Plavix -) 75 mg PO DAILY [facility] Last Admin: 12/19/16 09:18 Dose: 75 mg Collagenase (Santyl -) 1 applic TP DAILY [facility] Last Admin: 12/19/16 09:31 Dose: Not Given Furosemide (Lasix Injection -) 40 mg IVPB DAILY [facility] Last Admin: 12/19/16 09:18 Dose: 40 mg Heparin Sodium (Porcine) (Heparin -) 5,000 unit SQ BID [facility] Last Admin: 12/19/16 09:18 Dose: 5,000 unit Piperacillin Sod/Tazobactam Sod (Zosyn 3.375gm Ivpb (Pre-Docked)) 50 mls @ 100 mls/hr IVPB Q8H-IV [facility] PRN Reason: Protocol Last Admin: 12/19/16 09:17 Dose: 100 mls/hr Insulin Aspart (Novolog Vial Sliding Scale -) 1 vial SQ ACHS [facility] PRN Reason: Protocol Last Admin: 12/19/16 06:20 Dose: 2 units Insulin Detemir (Levemir Vial) 20 units SQ AM [facility] Last Admin: 12/19/16 06:21 Dose: 20 units Pantoprazole Sodium (Protonix -) 40 mg PO DAILY [facility] Last Admin: 12/19/16 09:17 Dose: 40 mg Tamsulosin HCl (Flomax -) 0.4 mg PO DAILY@0830 [facility] Last Admin: 12/19/16 09:17 Dose: 0.4 mg - Objective Vital Signs: Vital Signs Temperature 99.5 F 12/19/16 06:00 Pulse Rate 75 12/19/16 06:00 Respiratory Rate 20 12/19/16 06:00 Blood Pressure 146/73 12/19/16 06:00 O2 Sat by Pulse Oximetry (%) 95 12/18/16 22:00 Cardiovascular: Yes: Regular Rate and Rhythm Respiratory: Yes: Diminished (--IMPROVING). No: Wheezes Gastrointestinal: Yes: Normal Bowel Sounds, Soft Edema: No Labs: CBC, BMP 12/18/16 05:40 12/18/16 05:40 INR, PTT INR 1.12 (0.82-1.09) 12/16/16 12:00 Problem List - Problems (1) Pneumonia Assessment/Plan: IV ABX PER ID CT OF CHEST PENDING CULTURES Code(s): J18.9 - PNEUMONIA, UNSPECIFIED ORGANISM Qualifiers: Pneumonia type: due to unspecified organism Laterality: bilateral Lung location: unspecified part of lung Qualified Code(s): J18.9 - Pneumonia, unspecified organism (2) CKD (chronic kidney disease) Assessment/Plan: CR 1.8 MONITOR ON LASIX RENAL ON BOARD Code(s): N18.9 - CHRONIC KIDNEY DISEASE, UNSPECIFIED (3) CAD (coronary artery disease) Code(s): I25.10 - ATHSCL HEART DISEASE OF [place] CORONARY ARTERY W/O ANG PCTRS Qualifiers: Associated angina: with unspecified angina (4) CHF (congestive heart failure) Assessment/Plan: ON LASIX BNP--HIGH CARDIO ECHO Code(s): I50.9 - HEART FAILURE, UNSPECIFIED Qualifiers: Congestive heart failure type: systolic Congestive heart failure chronicity: acute on chronic Qualified Code(s): I50.23 - Acute on chronic systolic (congestive) heart failure (5) Diabetes Assessment/Plan: BGM--SS ENDO Code(s): E11.9 - TYPE 2 DIABETES MELLITUS WITHOUT COMPLICATIONS Qualifiers: Diabetes mellitus complication status: with other specified complication (6) PAD (peripheral artery disease) Assessment/Plan: S/P ANGIO GET RECORDS FROM [facility] Code(s): I73.9 - PERIPHERAL VASCULAR DISEASE, UNSPECIFIED (7) SOB (shortness of breath) Assessment/Plan: V/Q SCAN ON SQ HEPARIN Code(s): R06.02 - SHORTNESS OF BREATH
--- NOTE | 2016-12-19 14:41 | PN ---
Progress Note, Physician Chief Complaint: less sob. Comfortable. tele negative. History of Present Illness: he is an 81 year old man history of NIDDM, CAD s/p CABG at [facility], BPH, CKD, pneumonia, chronic systolic CHF who was recently admitted at [facility] for PVD and leg ulcer s/p angio complicated by ATN resolved now admitted with sob and fluid overload. Less sob after lasix. No chest pain. # pillow orthopnea. no edema. Echo pending - Current Medication List Current Medications: Active Medications Albuterol/Ipratropium (Duoneb -) 1 amp NEB Q6H PRN PRN Reason: SHORTNESS OF BREATH Last Admin: 12/18/16 21:50 Dose: 1 amp Aspirin (Ecotrin -) 81 mg PO DAILY [facility] Last Admin: 12/19/16 09:18 Dose: 81 mg Bacitracin (Bacitracin -) 1 applic TP DAILY [facility] Clopidogrel Bisulfate (Plavix -) 75 mg PO DAILY [facility] Last Admin: 12/19/16 09:18 Dose: 75 mg Collagenase (Santyl -) 1 applic TP DAILY [facility] Last Admin: 12/19/16 09:31 Dose: Not Given Furosemide (Lasix Injection -) 40 mg IVPB DAILY [facility] Last Admin: 12/19/16 09:18 Dose: 40 mg Heparin Sodium (Porcine) (Heparin -) 5,000 unit SQ BID [facility] Last Admin: 12/19/16 09:18 Dose: 5,000 unit Piperacillin Sod/Tazobactam Sod (Zosyn 3.375gm Ivpb (Pre-Docked)) 50 mls @ 100 mls/hr IVPB Q8H-IV [facility] PRN Reason: Protocol Last Admin: 12/19/16 09:17 Dose: 100 mls/hr Insulin Aspart (Novolog Vial Sliding Scale -) 1 vial SQ ACHS [facility] PRN Reason: Protocol Last Admin: 12/19/16 12:14 Dose: 10 units Insulin Detemir (Levemir Vial) 20 units SQ AM [facility] Last Admin: 12/19/16 06:21 Dose: 20 units Pantoprazole Sodium (Protonix -) 40 mg PO DAILY [facility] Last Admin: 12/19/16 09:17 Dose: 40 mg Tamsulosin HCl (Flomax -) 0.4 mg PO DAILY@0830 [facility] Last Admin: 12/19/16 09:17 Dose: 0.4 mg - Objective Vital Signs: Vital Signs Temperature 98 F 12/19/16 10:00 Pulse Rate 74 12/19/16 10:00 Respiratory Rate 20 12/19/16 10:00 Blood Pressure 143/60 12/19/16 10:00 O2 Sat by Pulse Oximetry (%) 95 12/19/16 09:00 Constitutional: Yes: No Distress, Calm Eyes: Yes: WNL HENT: Yes: Atraumatic, Normocephalic Neck: Yes: Supple, Trachea Midline Cardiovascular: Yes: Regular Rate and Rhythm Respiratory: Yes: Regular, CTA Bilaterally Gastrointestinal: Yes: Normal Bowel Sounds, Soft Extremities: Yes: WNL Edema: No Peripheral Pulses WNL: Yes Labs: CBC, BMP 12/18/16 05:40 12/18/16 05:40 INR, PTT INR 1.12 (0.82-1.09) 12/16/16 12:00 Problem List - Problems (1) CHF (congestive heart failure) Assessment/Plan: Acute on chronic systolic chf. Probably exacerbated by decrease in Lasix after ATN. continue IV lasix, may need higher dose. daily weights. follow renal function. repeat echo is pending. repeat bnp in tomorrow. fluid and salt restriction. Hold off on ACEI or ARB for now. Can use hydralazine/imdur if bp tolerates. will follow with you. Code(s): I50.9 - HEART FAILURE, UNSPECIFIED Qualifiers: Congestive heart failure type: systolic Congestive heart failure chronicity: acute on chronic Qualified Code(s): I50.23 - Acute on chronic systolic (congestive) heart failure
[2016-12-19] MEDS: BACITRACIN 15 GM TUBE TOPICAL OINTMENT TP SCH (15:25)
[2016-12-19] MEDS: ACETAMINOPHEN 325 MG TABLET (FP) PO PRN (22:07)
[2016-12-19] MEDS: MAGNESIUM HYDROX 2400MG/30ML ORAL SUSPENSION 30 ML CUP PO PRN (22:08)
[2016-12-20] MEDS: PIPERACILLIN/TAZOB 3.375 GM 50 ML IVPB SCH ×3 (01:20→17:09)
[2016-12-20] MEDS: INSULIN DETEMIR 100 UNITS/ML MDV SQ SCH (06:13)
[2016-12-20] MEDS: INSULIN SLIDING SCALE (NOVOLOG) 1 VIAL SQ SCH ×4 (06:14→21:58)
[2016-12-20] MEDS: TAMSULOSIN HCL 0.4 MG CAP.ER.24H (FP) PO SCH (09:18)
[2016-12-20] MEDS: BACITRACIN 15 GM TUBE TOPICAL OINTMENT TP SCH (09:18)
[2016-12-20] MEDS: CLOPIDOGREL BISULFATE 75 MG TABLET (FP) PO SCH (09:19)
[2016-12-20] MEDS: COLLAGENASE CLOSTRIDIUM HIST. 30 GRAMS TUBE TP SCH (09:19)
[2016-12-20] MEDS: PANTOPRAZOLE 40 MG TABLET (FP) PO SCH (09:19)
[2016-12-20] MEDS: FUROSEMIDE 40 MG/4 ML INJECTABLE VIAL IVPB SCH (09:19)
[2016-12-20] MEDS: ASPIRIN COATED 81 MG TABLET.EC PO SCH (09:19)
--- NOTE | 2016-12-20 09:32 | CONS ---
DATE OF CONSULTATION: 12/20/2016 PHYSICAL MEDICINE REHABILITATION CONSULTATION HISTORY OF PRESENT ILLNESS: The patient is an 81-year-old man with past medical history of diabetes, coronary artery disease and coronary artery bypass graft, who has apparently been in [facility] for some time, after prior admission to [facility] with pneumonia. He was admitted to [facility] on December 16 with hypoxia and pneumonia. On admission, the patient's WBCs were elevated at 15.8, hemoglobin 10.6, platelet count in the 230s. He had elevated BUN of 43, creatinine 1.9. He was diagnosed again with pneumonia and started on antibiotics. Also hypoxia. Currently he is pending a CT of the chest and is maintained on BiPAP or CPAP. He also complains of some left-sided low back pain and was diagnosed also with congestive heart failure, [id number], systolic, and was started on diuresis. He had elevated WBCs on admission, as noted. Current WBC is 11.7. Hemoglobin is stable at 10.5. Platelet count is stable at 266. Last chemistry on December 18 was stable, with BUN slightly improved at 33 and creatinine stable at 1.8. He has a low total protein of 5.7 and albumin 2.3. The patient was seen by Physical Therapy. He required minimal assist for transfers and moderate assist to ambulate just 1 foot with a rolling walker, limited by shortness of breath. Again, he does have complain of left-sided low back pain, which he states is new and non-radicular, worse when lying in bed, better when out of bed, sitting in a chair. PAST MEDICAL AND SURGICAL HISTORY: Review of past medical and surgical history as above. Diabetes, coronary artery disease, coronary artery bypass graft, benign prostatic hypertrophy, chronic kidney disease, peripheral arterial disease, UTI. Possible CVA is listed. SOCIAL HISTORY: Lives with spouse in an apartment. He does have stairs at home. Again, he was admitted from a jail facility where he had been receiving rehabilitation services. CURRENT FUNCTION: He awaits therapy evaluation. REVIEW OF SYSTEMS: He denies any dizziness, any lightheadedness, any headache, any blurry vision or double vision, any neck pain, any nausea or vomiting, difficulty swallowing, difficulty chewing, any chest pain. He is short of breath, especially with any exertion. No abdominal pain. Denies any bowel or bladder incontinence. No numbness, tingling or isolated weakness in the upper or lower extremities. No fever or chills. He does have some left-sided low back pain, as described above, non-radicular and new. No skin rash. PHYSICAL EXAMINATION: General: The patient is on CPAP or BiPAP, but he is awake, alert, cooperative. He seems oriented and follows direction without any difficulty. HEENT: Normocephalic and atraumatic. His extraocular muscles appear intact. No obvious facial weakness. Neck: Supple, without any palpable spasm. Back: He does have some left-sided lumbosacral paraspinal tenderness, but no palpable spasm. Extremities: No edema or calf tenderness in the lower extremities. Neuromuscular: No tenderness in the gluteal or hip area. Awake, alert, oriented x3. Cranial nerves 2 through 12 appear grossly intact, although incomplete due to the BiPAP. He has mild arthritic changes in his hands but good range of motion. Good strength throughout the upper limbs and fairly good strength and range in the lower limbs, with normal sensation to light touch and pinprick, and symmetric reflexes with downgoing toes. Negative straight leg raise test. Good internal and external rotation of his hip girdle. Unable to stand to ambulate as he is nonambulatory. OVERALL IMPRESSION: 1. Deficits in mobility and activities of daily living, multifactorial. 2. Hypoxia with multiple diagnoses, including pneumonia and congestive heart failure. 3. Chronic kidney disease. 4. Urinary tract infection. 5. Anemia. 6. Left-sided low back pain, new, uncertain etiology. 7. History of diabetes. 8. History of coronary artery disease and coronary artery bypass graft. 9. Recent pneumonia, hospitalized at [facility]. 10. Mild osteoarthritis. PLAN AND SUGGESTIONS: 1. Continue physical therapy at the bedside as tolerated, certainly limited by his hypoxic state. 2. Out of bed to chair as able. 3. Consider x-rays of the lumbosacral spine if pain in his low back persists. 4. Pulmonary follow-up regarding CT scan of the chest. 5. Cardiology follow-up as directed. 6. Tylenol for pain in the low back. 7. Monitor for constipation. 8. The patient is on Plavix. No further DVT prophylaxis is needed. 9. No NSAIDs. 10. He probably will require return to short-term rehab in a jail facility once medically stable. Thank you for this referral. SHLOMO GOINS M.D. [facility]/[id number]
--- NOTE | 2016-12-20 10:38 | PN ---
Progress Note, Physician History of Present Illness: PULMONARY ALERT,LESS DYSPNEIC ON 100%NRM,-CP. - Current Medication List Current Medications: Active Medications Acetaminophen (Tylenol -) 650 mg PO Q6H PRN PRN Reason: FEVER OR PAIN Last Admin: 12/19/16 22:07 Dose: 650 mg Albuterol/Ipratropium (Duoneb -) 1 amp NEB Q6H PRN PRN Reason: SHORTNESS OF BREATH Last Admin: 12/18/16 21:50 Dose: 1 amp Aspirin (Ecotrin -) 81 mg PO DAILY [facility] Last Admin: 12/20/16 09:19 Dose: 81 mg Bacitracin (Bacitracin -) 1 applic TP DAILY [facility] Last Admin: 12/20/16 09:18 Dose: 1 applic Clopidogrel Bisulfate (Plavix -) 75 mg PO DAILY [facility] Last Admin: 12/20/16 09:19 Dose: 75 mg Collagenase (Santyl -) 1 applic TP DAILY [facility] Last Admin: 12/20/16 09:19 Dose: Not Given Furosemide (Lasix Injection -) 40 mg IVPB DAILY [facility] Last Admin: 12/20/16 09:19 Dose: 40 mg Piperacillin Sod/Tazobactam Sod (Zosyn 3.375gm Ivpb (Pre-Docked)) 50 mls @ 100 mls/hr IVPB Q8H-IV [facility] PRN Reason: Protocol Last Admin: 12/20/16 09:20 Dose: 100 mls/hr Insulin Aspart (Novolog Vial Sliding Scale -) 1 vial SQ ACHS [facility] PRN Reason: Protocol Last Admin: 12/20/16 06:14 Dose: 2 units Insulin Detemir (Levemir Vial) 20 units SQ AM [facility] Last Admin: 12/20/16 06:13 Dose: 20 units Magnesium Hydroxide (Milk Of Magnesia -) 30 ml PO HS PRN PRN Reason: CONSTIPATION Last Admin: 12/19/16 22:08 Dose: 30 ml Pantoprazole Sodium (Protonix -) 40 mg PO DAILY [facility] Last Admin: 12/20/16 09:19 Dose: 40 mg Tamsulosin HCl (Flomax -) 0.4 mg PO DAILY@0830 [facility] Last Admin: 12/20/16 09:18 Dose: 0.4 mg - Objective Vital Signs: Vital Signs Temperature 98.4 F 12/20/16 05:39 Pulse Rate 73 12/20/16 05:39 Respiratory Rate 20 12/20/16 05:39 Blood Pressure 149/64 12/20/16 05:39 O2 Sat by Pulse Oximetry (%) 95 12/20/16 06:21 Constitutional: Yes: Calm, Thin Eyes: Yes: WNL HENT: Yes: WNL Neck: Yes: WNL Cardiovascular: Yes: Regular Rate and Rhythm, S1, S2 Respiratory: Yes: Rhonchi (BILATERAL RHONCHI AND RALES) Gastrointestinal: Yes: Normal Bowel Sounds, Soft Extremities: Yes: WNL Edema: No Labs: CBC, BMP 12/18/16 05:40 12/18/16 05:40 INR, PTT INR 1.12 (0.82-1.09) 12/16/16 12:00 - ....Imaging Cat Scan: Report Reviewed, Image Reviewed Problem List - Problems (1) Acute hypoxemic respiratory failure Code(s): J96.01 - ACUTE RESPIRATORY FAILURE WITH HYPOXIA Assessment/Plan Problem List - Problems (1) CKD (chronic kidney disease) Code(s): N18.9 - CHRONIC KIDNEY DISEASE, UNSPECIFIED (2) PAD (peripheral artery disease) Code(s): I73.9 - PERIPHERAL VASCULAR DISEASE, UNSPECIFIED (3) Pneumonia Code(s): J18.9 - PNEUMONIA, UNSPECIFIED ORGANISM Qualifiers: Pneumonia type: due to unspecified organism Laterality: bilateral Lung location: unspecified part of lung Qualified Code(s): J18.9 - Pneumonia, unspecified organism (4) Respiratory distress Code(s): R06.00 - DYSPNEA, UNSPECIFIED (5) Microcytic anemia Code(s): D50.9 - IRON DEFICIENCY ANEMIA, UNSPECIFIED (6) BPH (benign prostatic hyperplasia) Code(s): N40.0 - BENIGN PROSTATIC HYPERPLASIA WITHOUT LOWER URINRY TRACT SYMP (7) CAD (coronary artery disease) Code(s): I25.10 - ATHSCL HEART DISEASE OF [place] CORONARY ARTERY W/O ANG PCTRS Qualifiers: Associated angina: with unspecified angina (8) CHF (congestive heart failure) Code(s): I50.9 - HEART FAILURE, UNSPECIFIED Qualifiers: Congestive heart failure type: systolic Congestive heart failure chronicity: acute on chronic Qualified Code(s): I50.23 - Acute on chronic systolic (congestive) heart failure (9) Diabetes Code(s): E11.9 - TYPE 2 DIABETES MELLITUS WITHOUT COMPLICATIONS Qualifiers: Diabetes mellitus complication status: with other specified complication 10 ACUTE HYPOXEMIC RESPIRATORY FAILURE I1. PNEUMONIA 12 ILD Assessment/Plan O2 as needed to maintain saturation Lasix ABX per ID Daily weight I&O BD TX Dr Tyler
[2016-12-20] MEDS: ALBUTEROL SO4 2.5/IPRATROPIUM 0.5 INH SOL 3 ML VIAL.NEB. NEB PRN ×3 (11:44→23:30)
--- NOTE | 2016-12-20 11:48 | PN ---
Progress Note, Physician History of Present Illness: Awake, responsive No complaints offered Dry cough Temp spike 101.[address] chest chronic lung disease with superimposed upper lobe infiltrates - Current Medication List Current Medications: Active Medications Acetaminophen (Tylenol -) 650 mg PO Q6H PRN PRN Reason: FEVER OR PAIN Last Admin: 12/19/16 22:07 Dose: 650 mg Albuterol/Ipratropium (Duoneb -) 1 amp NEB Q6H PRN PRN Reason: SHORTNESS OF BREATH Last Admin: 12/20/16 11:44 Dose: 1 amp Aspirin (Ecotrin -) 81 mg PO DAILY [facility] Last Admin: 12/20/16 09:19 Dose: 81 mg Bacitracin (Bacitracin -) 1 applic TP DAILY [facility] Last Admin: 12/20/16 09:18 Dose: 1 applic Clopidogrel Bisulfate (Plavix -) 75 mg PO DAILY [facility] Last Admin: 12/20/16 09:19 Dose: 75 mg Collagenase (Santyl -) 1 applic TP DAILY [facility] Last Admin: 12/20/16 09:19 Dose: Not Given Furosemide (Lasix Injection -) 40 mg IVPB DAILY [facility] Last Admin: 12/20/16 09:19 Dose: 40 mg Piperacillin Sod/Tazobactam Sod (Zosyn 3.375gm Ivpb (Pre-Docked)) 50 mls @ 100 mls/hr IVPB Q8H-IV [facility] PRN Reason: Protocol Last Admin: 12/20/16 09:20 Dose: 100 mls/hr Insulin Aspart (Novolog Vial Sliding Scale -) 1 vial SQ ACHS [facility] PRN Reason: Protocol Last Admin: 12/20/16 06:14 Dose: 2 units Insulin Detemir (Levemir Vial) 20 units SQ AM [facility] Last Admin: 12/20/16 06:13 Dose: 20 units Magnesium Hydroxide (Milk Of Magnesia -) 30 ml PO HS PRN PRN Reason: CONSTIPATION Last Admin: 12/19/16 22:08 Dose: 30 ml Pantoprazole Sodium (Protonix -) 40 mg PO DAILY [facility] Last Admin: 12/20/16 09:19 Dose: 40 mg Tamsulosin HCl (Flomax -) 0.4 mg PO DAILY@0830 [facility] Last Admin: 12/20/16 09:18 Dose: 0.4 mg - Objective Vital Signs: Vital Signs Temperature 98 F 12/20/16 10:00 Pulse Rate 70 12/20/16 10:00 Respiratory Rate 18 12/20/16 10:00 Blood Pressure 145/70 12/20/16 10:00 O2 Sat by Pulse Oximetry (%) 94 L 12/20/16 09:00 Eyes: Yes: Conjunctiva Clear Cardiovascular: Yes: Regular Rate and Rhythm, S1, S2 Respiratory: Yes: Diminished Gastrointestinal: Yes: Normal Bowel Sounds, Soft. No: Tenderness Edema: No Labs: CBC, BMP 12/18/16 05:40 12/18/16 05:40 INR, PTT INR 1.12 (0.82-1.09) 12/16/16 12:00 Assessment/Plan CHF bilateral upper lobe infiltrates Leukocytosis- improved Azotemia R foot ulcer Continue empiric zosyn Check repeat blood c/s Sputum c/s Local wound care
[2016-12-20] MEDS: ACETAMINOPHEN 325 MG TABLET (FP) PO PRN (13:25)
--- NOTE | 2016-12-20 13:38 | PN ---
Progress Note, Physician History of Present Illness: Pt seen and examined at bedside. He complains of shortness of breath. - Current Medication List Current Medications: Active Medications Acetaminophen (Tylenol -) 650 mg PO Q6H PRN PRN Reason: FEVER OR PAIN Last Admin: 12/20/16 13:25 Dose: 650 mg Albuterol/Ipratropium (Duoneb -) 1 amp NEB Q6H PRN PRN Reason: SHORTNESS OF BREATH Last Admin: 12/20/16 11:44 Dose: 1 amp Aspirin (Ecotrin -) 81 mg PO DAILY [facility] Last Admin: 12/20/16 09:19 Dose: 81 mg Bacitracin (Bacitracin -) 1 applic TP DAILY JONAS Last Admin: 12/20/16 09:18 Dose: 1 applic Bisacodyl (Dulcolax -) 10 mg PO ONCE ONE Stop: 12/20/16 13:06 Clopidogrel Bisulfate (Plavix -) 75 mg PO DAILY [facility] Last Admin: 12/20/16 09:19 Dose: 75 mg Collagenase (Santyl -) 1 applic TP DAILY [facility] Last Admin: 12/20/16 09:19 Dose: Not Given Furosemide (Lasix Injection -) 40 mg IVPB DAILY [facility] Last Admin: 12/20/16 09:19 Dose: 40 mg Piperacillin Sod/Tazobactam Sod (Zosyn 3.375gm Ivpb (Pre-Docked)) 50 mls @ 100 mls/hr IVPB Q8H-IV JONAS PRN Reason: Protocol Last Admin: 12/20/16 09:20 Dose: 100 mls/hr Insulin Aspart (Novolog Vial Sliding Scale -) 1 vial SQ ACHS JONAS PRN Reason: Protocol Last Admin: 12/20/16 11:46 Dose: 6 units Insulin Detemir (Levemir Vial) 35 units SQ AM JONAS Magnesium Hydroxide (Milk Of Magnesia -) 30 ml PO HS PRN PRN Reason: CONSTIPATION Last Admin: 12/19/16 22:08 Dose: 30 ml Pantoprazole Sodium (Protonix -) 40 mg PO DAILY [facility] Last Admin: 12/20/16 09:19 Dose: 40 mg Silver Sulfadiazine (Silvadene -) 1 applic TP BID JONAS Tamsulosin HCl (Flomax -) 0.4 mg PO DAILY@0830 [facility] Last Admin: 12/20/16 09:18 Dose: 0.4 mg - Objective Vital Signs: Vital Signs Temperature 98 F 12/20/16 10:00 Pulse Rate 70 12/20/16 10:00 Respiratory Rate 18 12/20/16 10:00 Blood Pressure 145/70 12/20/16 10:00 O2 Sat by Pulse Oximetry (%) 94 L 12/20/16 09:00 Constitutional: Yes: Calm Eyes: Yes: Conjunctiva Clear HENT: Yes: Atraumatic Neck: Yes: Supple Cardiovascular: Yes: S1, S2 Respiratory: Yes: On Venti-Mask Gastrointestinal: Yes: Normal Bowel Sounds, Soft Genitourinary: Yes: [place] Present Musculoskeletal: Yes: Muscle Weakness Edema: Yes Edema: LLE: Trace, RLE: Trace Neurological: Yes: Oriented Psychiatric: Yes: Oriented Labs: CBC, BMP 12/18/16 05:40 12/18/16 05:40 INR, PTT INR 1.12 (0.82-1.09) 12/16/16 12:00 - ....Imaging Cat Scan: Report Reviewed Problem List - Problems (1) Pneumonia Code(s): J18.9 - PNEUMONIA, UNSPECIFIED ORGANISM Qualifiers: Pneumonia type: due to unspecified organism Laterality: bilateral Lung location: unspecified part of lung Qualified Code(s): J18.9 - Pneumonia, unspecified organism (2) Respiratory distress Code(s): R06.00 - DYSPNEA, UNSPECIFIED (3) BPH (benign prostatic hyperplasia) Code(s): N40.0 - BENIGN PROSTATIC HYPERPLASIA WITHOUT LOWER URINRY TRACT SYMP (4) CAD (coronary artery disease) Code(s): I25.10 - ATHSCL HEART DISEASE OF [place] CORONARY ARTERY W/O ANG PCTRS Qualifiers: Associated angina: with unspecified angina (5) CHF (congestive heart failure) Code(s): I50.9 - HEART FAILURE, UNSPECIFIED Qualifiers: Congestive heart failure type: systolic Congestive heart failure chronicity: acute on chronic Qualified Code(s): I50.23 - Acute on chronic systolic (congestive) heart failure (6) Diabetes Code(s): E11.9 - TYPE 2 DIABETES MELLITUS WITHOUT COMPLICATIONS Qualifiers: Diabetes mellitus complication status: with other specified complication (7) CKD (chronic kidney disease) Code(s): N18.9 - CHRONIC KIDNEY DISEASE, UNSPECIFIED Assessment/Plan Current Medications Generic Name Dose Route Start Last Admin Trade Name Freq PRN Reason Stop Dose Admin Acetaminophen 650 mg 12/19/16 20:28 12/20/16 13:25 Tylenol - PO 650 mg Q6H PRN Administration FEVER OR PAIN Albuterol/Ipratropium 1 amp 12/16/16 16:53 12/20/16 11:44 Duoneb - NEB 1 amp Q6H PRN Administration SHORTNESS OF BREATH Aspirin 81 mg 12/17/16 10:00 12/20/16 09:19 Ecotrin - PO 81 mg DAILY JONAS Administration Bacitracin 1 applic 12/19/16 11:45 12/20/16 09:18 Bacitracin - TP 1 applic DAILY JONAS Administration Bisacodyl 10 mg 12/20/16 13:05 Dulcolax - PO 12/20/16 13:06 ONCE ONE Clopidogrel Bisulfate 75 mg 12/17/16 10:00 12/20/16 09:19 Plavix - PO 75 mg DAILY JONAS Administration Collagenase 1 applic 12/17/16 10:00 12/20/16 09:19 Santyl - TP Not Given DAILY JONAS Furosemide 40 mg 12/16/16 17:00 12/20/16 09:19 Lasix Injection - IVPB 40 mg DAILY JONAS Administration Piperacillin Sod/Tazobactam Sod 50 mls @ 100 mls/hr 12/16/16 18:00 12/20/16 09: 20 Zosyn 3.375gm Ivpb (Pre-Docked) IVPB 100 mls/hr Q8H-IV JONAS Administration Protocol Insulin Aspart 1 vial 12/16/16 22:00 12/20/16 11:46 Novolog Vial Sliding Scale - SQ 6 units ACHS JONAS Administration Protocol Insulin Detemir 35 units 12/20/16 12:46 Levemir Vial SQ AM JONAS Magnesium Hydroxide 30 ml 12/19/16 20:34 12/19/16 22:08 Milk Of Magnesia - PO 30 ml HS PRN Administration CONSTIPATION Pantoprazole Sodium 40 mg 12/16/16 17:00 12/20/16 09:19 Protonix - PO 40 mg DAILY JONAS Administration Silver Sulfadiazine 1 applic 12/20/16 22:00 Silvadene - TP BID JONAS Tamsulosin HCl 0.4 mg 12/17/16 08:30 12/20/16 09:18 Flomax - PO 0.4 mg DAILY@0830 JONAS Administration Impression 1. CKD 2. hx CVA 3. CAD 4. DM 5. BPH 6. chol 7. PVD 8. s/p angio of the right leg with stenting 9. PNA 10. dyspnea 11. lactic acidosis Plan - check bmp - cont lasix - ct reviewed - discussed with pt - mental status is back to baseline - discussed plan with pt and Dr Wilson
[2016-12-20 13:57] LABS: URINE APPEARANCE CLEAR; URINE BILIRUBIN NEGATIVE (NEGATIVE); URINE BLOOD NEGATIVE (NEGATIVE); URINE COLOR LTYELLOW; URINE GLUCOSE (UA) 1+ (NEGATIVE); URINE KETONE NEGATIVE (NEGATIVE); URINE LEUK ESTERASE NEGATIVE (NEGATIVE); URINE NITRITE NEGATIVE (NEGATIVE); URINE PROTEIN 1+ (NEGATIVE); URINE UROBILINOGEN NEGATIVE E.U./dl (0.2-1.0)
[2016-12-20] MEDS ORDERED: BISACODYL 5 MG TABLET.DR (FP) PO ONE (14:00)
[2016-12-20 14:31] LABS: URINE RBC <1 /hpf (0-3); URINE WBC 3 /hpf (3-5)
[2016-12-20 15:03] LABS: YEAST RARE
--- NOTE | 2016-12-20 15:24 | PN ---
Progress Note, Physician Chief Complaint: Still Hypoxic No nRB History of Present Illness: less sob. Comfortable. tele negative. History of Present Illness: he is an 81 year old man history of NIDDM, CAD s/p CABG at [facility], BPH, CKD, pneumonia, chronic systolic CHF who was recently admitted at [facility] for PVD and leg ulcer s/p angio complicated by ATN resolved now admitted with sob and hypoxia with volume overload and PNA. No chest pain. # pillow orthopnea. no edema. - Current Medication List Current Medications: Active Medications Acetaminophen (Tylenol -) 650 mg PO Q6H PRN PRN Reason: FEVER OR PAIN Last Admin: 12/20/16 13:25 Dose: 650 mg Albuterol/Ipratropium (Duoneb -) 1 amp NEB Q6H PRN PRN Reason: SHORTNESS OF BREATH Last Admin: 12/20/16 11:44 Dose: 1 amp Aspirin (Ecotrin -) 81 mg PO DAILY [facility] Last Admin: 12/20/16 09:19 Dose: 81 mg Bacitracin (Bacitracin -) 1 applic TP DAILY [facility] Last Admin: 12/20/16 09:18 Dose: 1 applic Clopidogrel Bisulfate (Plavix -) 75 mg PO DAILY [facility] Last Admin: 12/20/16 09:19 Dose: 75 mg Collagenase (Santyl -) 1 applic TP DAILY [facility] Last Admin: 12/20/16 09:19 Dose: Not Given Furosemide (Lasix Injection -) 40 mg IVPB DAILY [facility] Last Admin: 12/20/16 09:19 Dose: 40 mg Piperacillin Sod/Tazobactam Sod (Zosyn 3.375gm Ivpb (Pre-Docked)) 50 mls @ 100 mls/hr IVPB Q8H-IV JONAS PRN Reason: Protocol Last Admin: 12/20/16 09:20 Dose: 100 mls/hr Insulin Aspart (Novolog Vial Sliding Scale -) 1 vial SQ ACHS JONAS PRN Reason: Protocol Last Admin: 12/20/16 11:46 Dose: 6 units Insulin Detemir (Levemir Vial) 35 units SQ AM JONAS Magnesium Hydroxide (Milk Of Magnesia -) 30 ml PO HS PRN PRN Reason: CONSTIPATION Last Admin: 12/19/16 22:08 Dose: 30 ml Pantoprazole Sodium (Protonix -) 40 mg PO DAILY [facility]ON[facility] Last Admin: 12/20/16 09:19 Dose: 40 mg Silver Sulfadiazine (Silvadene -) 1 applic TP BID [facility] Tamsulosin HCl (Flomax -) 0.4 mg PO DAILY@0830 [facility] Last Admin: 12/20/16 09:18 Dose: 0.4 mg - Objective Vital Signs: Vital Signs Temperature 98 F 12/20/16 10:00 Pulse Rate 70 12/20/16 10:00 Respiratory Rate 18 12/20/16 10:00 Blood Pressure 145/70 12/20/16 10:00 O2 Sat by Pulse Oximetry (%) 94 L 12/20/16 09:00 Constitutional: Yes: Mild Distress Eyes: Yes: WNL HENT: Yes: WNL Neck: Yes: WNL Cardiovascular: Yes: Pulse Irregular Respiratory: Yes: On Venti-Mask, SOB Gastrointestinal: Yes: WNL Edema: No Peripheral Pulses WNL: Yes Labs: CBC, BMP 12/18/16 05:40 12/18/16 05:40 INR, PTT INR 1.12 (0.82-1.09) 12/16/16 12:00 - ....Imaging Cat Scan: Report Reviewed Problem List - Problems (1) Acute hypoxemic respiratory failure Assessment/Plan: CT chest with extensive intrisic lung disease and multilobar PNA. COntinue with BiPAP and ABx and pulmonary follow up. Code(s): J96.01 - ACUTE RESPIRATORY FAILURE WITH HYPOXIA (2) CAD (coronary artery disease) Assessment/Plan: Stable CAD. Heart failure controlled. His hypoxia likely more from infection and lung disease Will repeat BNP in AM. Code(s): I25.10 - ATHSCL HEART DISEASE OF [place] CORONARY ARTERY W/O ANG PCTRS Qualifiers: Associated angina: with unspecified angina
--- NOTE | 2016-12-20 19:21 | PN ---
Progress Note, Physician Chief Complaint: PATIENT IN SEVERE RESP DISTRESS, CAN NOT TAKE OFF 100% VENTI MASK WITHOUT HIS 02 SAT DROPPING LES THAN 80% - Current Medication List Current Medications: Active Medications Acetaminophen (Tylenol -) 650 mg PO Q6H PRN PRN Reason: FEVER OR PAIN Last Admin: 12/20/16 13:25 Dose: 650 mg Albuterol/Ipratropium (Duoneb -) 1 amp NEB Q6H PRN PRN Reason: SHORTNESS OF BREATH Last Admin: 12/20/16 18:02 Dose: 1 amp Aspirin (Ecotrin -) 81 mg PO DAILY [facility] Last Admin: 12/20/16 09:19 Dose: 81 mg Bacitracin (Bacitracin -) 1 applic TP DAILY [facility] Last Admin: 12/20/16 09:18 Dose: 1 applic Clopidogrel Bisulfate (Plavix -) 75 mg PO DAILY [facility] Last Admin: 12/20/16 09:19 Dose: 75 mg Collagenase (Santyl -) 1 applic TP DAILY [facility] Last Admin: 12/20/16 09:19 Dose: Not Given Furosemide (Lasix Injection -) 40 mg IVPB DAILY [facility] Last Admin: 12/20/16 09:19 Dose: 40 mg Piperacillin Sod/Tazobactam Sod (Zosyn 3.375gm Ivpb (Pre-Docked)) 50 mls @ 100 mls/hr IVPB Q8H-IV JONAS PRN Reason: Protocol Last Admin: 12/20/16 17:09 Dose: 100 mls/hr Insulin Aspart (Novolog Vial Sliding Scale -) 1 vial SQ ACHS JONAS PRN Reason: Protocol Last Admin: 12/20/16 17:06 Dose: 6 units Insulin Detemir (Levemir Vial) 35 units SQ AM JONAS Magnesium Hydroxide (Milk Of Magnesia -) 30 ml PO HS PRN PRN Reason: CONSTIPATION Last Admin: 12/19/16 22:08 Dose: 30 ml Pantoprazole Sodium (Protonix -) 40 mg PO DAILY [facility] Last Admin: 12/20/16 09:19 Dose: 40 mg Silver Sulfadiazine (Silvadene -) 1 applic TP BID JONAS Tamsulosin HCl (Flomax -) 0.4 mg PO DAILY@0830 [facility] Last Admin: 12/20/16 09:18 Dose: 0.4 mg - Objective Vital Signs: Vital Signs Temperature 99.8 F H 12/20/16 17:00 Pulse Rate 74 12/20/16 17:00 Respiratory Rate 20 12/20/16 17:00 Blood Pressure 105/48 12/20/16 17:00 O2 Sat by Pulse Oximetry (%) 97 12/20/16 18:01 Constitutional: Yes: Moderate Distress Eyes: Yes: WNL HENT: Yes: WNL Neck: Yes: WNL Cardiovascular: Yes: WNL Respiratory: Yes: On Venti-Mask, Poor Air Entry, Rales, SOB Gastrointestinal: Yes: WNL Genitourinary: Yes: WNL Musculoskeletal: Yes: Muscle Weakness Extremities: Yes: WNL Edema: No Peripheral Pulses WNL: Yes Integumentary: Yes: Bruising, Pressure Ulcer Wound/Incision: Yes: Clean/Dry, Dressing Dry and Intact Neurological: Yes: Pre-Existing Deficit ...Motor Strength: LLE, RLE Psychiatric: Yes: Other Labs: CBC, BMP 12/18/16 05:40 12/18/16 05:40 INR, PTT INR 1.12 (0.82-1.09) 12/16/16 12:00 Problem List - Problems (1) Pneumonia Code(s): J18.9 - PNEUMONIA, UNSPECIFIED ORGANISM Qualifiers: Pneumonia type: due to unspecified organism Laterality: bilateral Lung location: unspecified part of lung Qualified Code(s): J18.9 - Pneumonia, unspecified organism (2) Microcytic anemia Code(s): D50.9 - IRON DEFICIENCY ANEMIA, UNSPECIFIED (3) UTI (urinary tract infection) Code(s): N39.0 - URINARY TRACT INFECTION, SITE NOT SPECIFIED Qualifiers: Urinary tract infection type: acute cystitis (4) BPH (benign prostatic hyperplasia) Code(s): N40.0 - BENIGN PROSTATIC HYPERPLASIA WITHOUT LOWER URINRY TRACT SYMP (5) CAD (coronary artery disease) Code(s): I25.10 - ATHSCL HEART DISEASE OF [place] CORONARY ARTERY W/O ANG PCTRS Qualifiers: Associated angina: with unspecified angina (6) CHF (congestive heart failure) Code(s): I50.9 - HEART FAILURE, UNSPECIFIED Qualifiers: Congestive heart failure type: systolic Congestive heart failure chronicity: acute on chronic Qualified Code(s): I50.23 - Acute on chronic systolic (congestive) heart failure (7) Diabetes Code(s): E11.9 - TYPE 2 DIABETES MELLITUS WITHOUT COMPLICATIONS Qualifiers: Diabetes mellitus complication status: with other specified complication (8) Respiratory distress Code(s): R06.00 - DYSPNEA, UNSPECIFIED (9) CKD (chronic kidney disease) Code(s): N18.9 - CHRONIC KIDNEY DISEASE, UNSPECIFIED Qualifiers: Chronic kidney disease stage: stage 3 (moderate) Qualified Code(s): N18.3 - Chronic kidney disease, stage 3 (moderate) Assessment/Plan PATIENT WITH SEVERE DYSPNEA OFF 100% 02 MASK NEEDS BIPAP AT NIGHT WILL NEED TO GET OOB IN TO CHAIR IF FEASABLE TO EXERCISE HIS LUNGS, INCENTIVE SPIROMETRY ENCOURAGED PROTEIN DRINKS PT BEDSIDE DISCUSSED AND DEMONSTRATED WITH HIS LABS AND XRAYS DISCUSSED WITH FAMILY PATIENT IS EXTREMELY ILL AND NEEDS TO FOLLOW DIRECTIONS FOR AN IMPROVEMENT WITH HIS DIAGNOSIS IV LASIX AND ABX CONTINUED 02 SUPPORT
[2016-12-20] MEDS ORDERED: PT OWN MED DRAWER 7, Y5N ONE (21:30)
[2016-12-20] MEDS: ASCORBIC ACID 250 MG TABLET (FP) PO SCH (21:44)
[2016-12-20] MEDS: SILVER SULFADIAZINE 1% TOP CREAM 50 GM JAR TP SCH (21:44)
--- NOTE | 2016-12-20 23:01 | PN ---
Progress Note, Physician Chief Complaint: coughing,dyspneic,with chills History of Present Illness: iddm,uncontrolled hyperglycemia,coughing dyspnea,sepsis,feels weak,constipated and concerned about higher blood sugars,poor appetite - Current Medication List Current Medications: Active Medications Acetaminophen (Tylenol -) 650 mg PO Q6H PRN PRN Reason: FEVER OR PAIN Last Admin: 12/20/16 13:25 Dose: 650 mg Albuterol/Ipratropium (Duoneb -) 1 amp NEB Q6H PRN PRN Reason: SHORTNESS OF BREATH Last Admin: 12/20/16 18:02 Dose: 1 amp Amino Acids (Prosource No Carb Liquid Pkt) 30 ml PO BID@0800,1730 JONAS Ascorbic Acid (Vitamin C -) 250 mg PO BID [facility] Last Admin: 12/20/16 21:44 Dose: 250 mg Aspirin (Ecotrin -) 81 mg PO DAILY [facility] Last Admin: 12/20/16 09:19 Dose: 81 mg Bacitracin (Bacitracin -) 1 applic TP DAILY [facility] Last Admin: 12/20/16 09:18 Dose: 1 applic Clopidogrel Bisulfate (Plavix -) 75 mg PO DAILY [facility] Last Admin: 12/20/16 09:19 Dose: 75 mg Collagenase (Santyl -) 1 applic TP DAILY [facility] Last Admin: 12/20/16 09:19 Dose: Not Given Furosemide (Lasix Injection -) 40 mg IVPB DAILY [facility] Last Admin: 12/20/16 09:19 Dose: 40 mg Piperacillin Sod/Tazobactam Sod (Zosyn 3.375gm Ivpb (Pre-Docked)) 50 mls @ 100 mls/hr IVPB Q8H-IV JONAS PRN Reason: Protocol Last Admin: 12/20/16 17:09 Dose: 100 mls/hr Insulin Aspart (Novolog Vial Sliding Scale -) 1 vial SQ ACHS JONAS PRN Reason: Protocol Last Admin: 12/20/16 21:58 Dose: Not Given Insulin Detemir (Levemir Vial) 35 units SQ AM JONAS Magnesium Hydroxide (Milk Of Magnesia -) 30 ml PO HS PRN PRN Reason: CONSTIPATION Last Admin: 12/19/16 22:08 Dose: 30 ml Multivitamins/Minerals/Vitamin C (Tab-A-Vit -) 1 tab PO DAILY [facility] Pantoprazole Sodium (Protonix -) 40 mg PO DAILY [facility] Last Admin: 12/20/16 09:19 Dose: 40 mg Silver Sulfadiazine (Silvadene -) 1 applic TP BID [facility] Last Admin: 12/20/16 21:44 Dose: 1 applic Tamsulosin HCl (Flomax -) 0.4 mg PO DAILY@0830 [facility] Last Admin: 12/20/16 09:18 Dose: 0.4 mg Zinc Sulfate (Orazinc -) 220 mg PO DAILY [facility] - Objective Vital Signs: Vital Signs Temperature 97.8 F 12/20/16 22:00 Pulse Rate 73 12/20/16 22:00 Respiratory Rate 20 12/20/16 22:00 Blood Pressure 129/55 12/20/16 22:00 O2 Sat by Pulse Oximetry (%) 94 L 12/20/16 22:00 Constitutional: Yes: Anxious Eyes: Yes: EOM Intact HENT: Yes: Normocephalic Neck: Yes: Trachea Midline Respiratory: Yes: Poor Air Entry, Rhonchi, SOB, Tachypnea Gastrointestinal: Yes: Soft, Hypoactive Bowel Sounds Genitourinary: Yes: WNL Extremities: Yes: WNL Edema: No Integumentary: Yes: Pressure Ulcer (right ankle lateral side) Wound/Incision: Yes: Well Approximated, Excoriated Neurological: Yes: Alert, Oriented, Numbness, Weakness Labs: CBC, BMP 12/18/16 05:40 12/18/16 05:40 INR, PTT INR 1.12 (0.82-1.09) 12/16/16 12:00 Problem List - Problems (1) UTI (urinary tract infection) Code(s): N39.0 - URINARY TRACT INFECTION, SITE NOT SPECIFIED Qualifiers: Urinary tract infection type: acute cystitis (2) BPH (benign prostatic hyperplasia) Code(s): N40.0 - BENIGN PROSTATIC HYPERPLASIA WITHOUT LOWER URINRY TRACT SYMP (3) Diabetes mellitus, insulin dependent (IDDM), uncontrolled Code(s): E10.65 - TYPE 1 DIABETES MELLITUS WITH HYPERGLYCEMIA Qualifiers: 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 Assessment/Plan Current Active Problems Acute hypoxemic respiratory failure (Acute) CKD (chronic kidney disease) (Acute) Diabetes mellitus, insulin dependent (IDDM), uncontrolled (Acute) PAD (peripheral artery disease) (Acute) Pneumonia (Acute) Respiratory distress (Acute) SOB (shortness of breath) (Acute) Laboratory Results - last 24 hr 12/16/16 12/20/16 12/20/16 21:20 05:55 05:57 POC Glucometer 585 167 389 Urine Color Urine Appearance Urine pH Ur Specific [place] Urine Protein Urine Glucose (UA) Urine Ketones Urine Blood Urine Nitrite Urine Bilirubin Urine Urobilinogen Ur Leukocyte Esterase Urine RBC Urine WBC Urine Yeast 12/20/16 12/20/16 12/20/16 11:45 13:00 15:52 POC Glucometer 298 266 Urine Color Ltyellow Urine Appearance Clear Urine pH 7.0 Ur Specific [place] 1.015 Urine Protein 1+ H Urine Glucose (UA) 1+ H Urine Ketones Negative Urine Blood Negative Urine Nitrite Negative Urine Bilirubin Negative Urine Urobilinogen Negative Ur Leukocyte Esterase Negative Urine RBC <1 Urine WBC 3 Urine Yeast Rare 12/20/16 21:55 POC Glucometer 144 Urine Color Urine Appearance Urine pH Ur Specific [place] Urine Protein Urine Glucose (UA) Urine Ketones Urine Blood Urine Nitrite Urine Bilirubin Urine Urobilinogen Ur Leukocyte Esterase Urine RBC Urine WBC Urine Yeast Abnormal Lab Results 12/20/16 13:00 Urine Protein 1+ H Urine Glucose (UA) 1+ H Laboratory Tests 12/20/16 12/20/16 12/20/16 05:55 11:45 15:52 POC Glucometer 167 298 266 12/20/16 21:55 POC Glucometer 144 plan: Current Medications Generic Name Dose Route Start Last Admin Trade Name Freq PRN Reason Stop Dose Admin Acetaminophen 650 mg 12/19/16 20:28 12/20/16 13:25 Tylenol - PO 650 mg Q6H PRN Administration FEVER OR PAIN Albuterol/Ipratropium 1 amp 12/16/16 16:53 12/20/16 18:02 Duoneb - NEB 1 amp Q6H PRN Administration SHORTNESS OF BREATH Amino Acids 30 ml 12/21/16 08:00 Prosource No Carb Liquid Pkt PO BID@0800,1730 JONAS Ascorbic Acid 250 mg 12/20/16 22:00 12/20/16 21:44 Vitamin C - PO 250 mg BID JONAS Administration Aspirin 81 mg 12/17/16 10:00 12/20/16 09:19 Ecotrin - PO 81 mg DAILY JONAS Administration Bacitracin 1 applic 12/19/16 11:45 12/20/16 09:18 Bacitracin - TP 1 applic DAILY JONAS Administration Clopidogrel Bisulfate 75 mg 12/17/16 10:00 12/20/16 09:19 Plavix - PO 75 mg DAILY JONAS Administration Collagenase 1 applic 12/17/16 10:00 12/20/16 09:19 Santyl - TP Not Given DAILY JONAS Furosemide 40 mg 12/16/16 17:00 12/20/16 09:19 Lasix Injection - IVPB 40 mg DAILY JONAS Administration Piperacillin Sod/Tazobactam Sod 50 mls @ 100 mls/hr 12/16/16 18:00 12/20/16 17: 09 Zosyn 3.375gm Ivpb (Pre-Docked) IVPB 100 mls/hr Q8H-IV JONAS Administration Protocol Insulin Aspart 1 vial 12/16/16 22:00 12/20/16 21:58 Novolog Vial Sliding Scale - SQ Not Given ACHS [facility] Protocol Insulin Detemir 35 units 12/20/16 12:46 Levemir Vial SQ AM JONAS Magnesium Hydroxide 30 ml 12/19/16 20:34 12/19/16 22:08 Milk Of Magnesia - PO 30 ml HS PRN Administration CONSTIPATION Multivitamins/Minerals/Vitamin C 1 tab 12/21/16 10:00 Tab-A-Vit - PO DAILY [facility]ON[facility] Pantoprazole Sodium 40 mg 12/16/16 17:00 12/20/16 09:19 Protonix - PO 40 mg DAILY JONAS Administration Silver Sulfadiazine 1 applic 12/20/16 22:00 12/20/16 21:44 Silvadene - TP 1 applic BID JONAS Administration Tamsulosin HCl 0.4 mg 12/17/16 08:30 12/20/16 09:18 Flomax - PO 0.4 mg DAILY@0830 JONAS Administration Zinc Sulfate 220 mg 12/21/16 10:00 Orazinc - PO DAILY JONAS add levemir 20 @hs
[2016-12-21] MEDS: PIPERACILLIN/TAZOB 3.375 GM 50 ML IVPB SCH ×3 (01:19→18:55)
[2016-12-21] MEDS: ACETAMINOPHEN 325 MG TABLET (FP) PO PRN ×2 (05:46→21:05)
[2016-12-21] MEDS: INSULIN SLIDING SCALE (NOVOLOG) 1 VIAL SQ SCH ×4 (06:31→22:15)
[2016-12-21 07:26] LABS: MCH 30.6 pg (25.7-33.7); MCHC 33.8 g/dl (32.0-35.9); MEAN CELL VOLUME 90.5 fl (80-96); MEAN PLT VOLUME 8.9 fl (7.5-11.1); PLATELET COUNT 253 K/MM3 (134-434); RDW 14.1 % (11.9-15.9); WHITE BLOOD COUNT 12.7 K/mm3 (4.0-10.0)
[2016-12-21 08:00] LABS: COCKROFT - GAULT 36.31; CREATININE 1.6 mg/dL (0.7-1.3); MAGNESIUM 1.9 mg/dL (1.8-2.4)
[2016-12-21] MEDS: INSULIN DETEMIR 100 UNITS/ML MDV SQ SCH ×2 (08:00→22:14)
[2016-12-21] MEDS: TAMSULOSIN HCL 0.4 MG CAP.ER.24H (FP) PO SCH (08:20)
[2016-12-21] MEDS: AMINO ACIDS/PROTEIN HYDROLYS 30 ML LIQUID.PKT PO SCH ×2 (08:20→18:55)
[2016-12-21] MEDS: PANTOPRAZOLE 40 MG TABLET (FP) PO SCH (09:34)
[2016-12-21] MEDS: ZINC SULFATE 220 MG CAPSULE (FP) PO SCH (09:34)
[2016-12-21] MEDS: BACITRACIN 15 GM TUBE TOPICAL OINTMENT TP SCH (09:34)
[2016-12-21] MEDS: CLOPIDOGREL BISULFATE 75 MG TABLET (FP) PO SCH (09:34)
[2016-12-21] MEDS: MULTIVITAMINS (DAILY MVI) TABLET (FP) PO SCH (09:34)
[2016-12-21] MEDS: SILVER SULFADIAZINE 1% TOP CREAM 50 GM JAR TP SCH ×2 (09:34→22:15)
[2016-12-21] MEDS: FUROSEMIDE 40 MG/4 ML INJECTABLE VIAL IVPB SCH (09:34)
[2016-12-21] MEDS: ASPIRIN COATED 81 MG TABLET.EC PO SCH (09:34)
[2016-12-21] MEDS: COLLAGENASE CLOSTRIDIUM HIST. 30 GRAMS TUBE TP SCH (09:34)
[2016-12-21] MEDS: ASCORBIC ACID 250 MG TABLET (FP) PO SCH ×2 (09:35→22:14)
--- NOTE | 2016-12-21 11:34 | PN ---
Progress Note, Physician Chief Complaint: AWAKE BHARATHIR DESATURATED TO 84% ON 4L NC CHANGED TO 02 MASK 50% CLAIMS HIS FEVERS ARE FROM ALBUTEROL NEB - Current Medication List Current Medications: Active Medications Acetaminophen (Tylenol -) 650 mg PO Q6H PRN PRN Reason: FEVER OR PAIN Last Admin: 12/21/16 05:46 Dose: 650 mg Amino Acids (Prosource No Carb Liquid Pkt) 30 ml PO BID@0800,1730 [facility] Last Admin: 12/21/16 08:20 Dose: 30 ml Arformoterol Tartrate (Brovana (Restricted To Pulmonology/Resp) -) 1 amp NEB BID [facility] Ascorbic Acid (Vitamin C -) 250 mg PO BID [facility] Last Admin: 12/21/16 09:35 Dose: 250 mg Aspirin (Ecotrin -) 81 mg PO DAILY [facility] Last Admin: 12/21/16 09:34 Dose: 81 mg Bacitracin (Bacitracin -) 1 applic TP DAILY [facility] Last Admin: 12/21/16 09:34 Dose: 1 applic Clopidogrel Bisulfate (Plavix -) 75 mg PO DAILY [facility] Last Admin: 12/21/16 09:34 Dose: 75 mg Collagenase (Santyl -) 1 applic TP DAILY [facility] Last Admin: 12/21/16 09:34 Dose: Not Given Furosemide (Lasix Injection -) 40 mg IVPB DAILY [facility] Last Admin: 12/21/16 09:34 Dose: 40 mg Piperacillin Sod/Tazobactam Sod (Zosyn 3.375gm Ivpb (Pre-Docked)) 50 mls @ 100 mls/hr IVPB Q8H-IV JONAS PRN Reason: Protocol Last Admin: 12/21/16 09:35 Dose: 100 mls/hr Insulin Aspart (Novolog Vial Sliding Scale -) 1 vial SQ ACHS JONAS PRN Reason: Protocol Last Admin: 12/21/16 06:31 Dose: 2 units Insulin Detemir (Levemir Vial) 35 units SQ AM JONAS Insulin Detemir (Levemir Vial) 15 units SQ HS JONAS Magnesium Hydroxide (Milk Of Magnesia -) 30 ml PO HS PRN PRN Reason: CONSTIPATION Last Admin: 12/19/16 22:08 Dose: 30 ml Multivitamins/Minerals/Vitamin C (Tab-A-Vit -) 1 tab PO DAILY [facility] Last Admin: 12/21/16 09:34 Dose: 1 tab Pantoprazole Sodium (Protonix -) 40 mg PO DAILY [facility] Last Admin: 12/21/16 09:34 Dose: 40 mg Silver Sulfadiazine (Silvadene -) 1 applic TP BID [facility] Last Admin: 12/21/16 09:34 Dose: 1 applic Tamsulosin HCl (Flomax -) 0.4 mg PO DAILY@0830 [facility] Last Admin: 12/21/16 08:20 Dose: 0.4 mg Zinc Sulfate (Orazinc -) 220 mg PO DAILY [facility] Last Admin: 12/21/16 09:34 Dose: 220 mg - Objective Vital Signs: Vital Signs Temperature 101.1 F H 12/21/16 05:25 Pulse Rate 77 12/21/16 09:55 Respiratory Rate 20 12/21/16 05:25 Blood Pressure 121/57 12/21/16 05:25 O2 Sat by Pulse Oximetry (%) 94 L 12/21/16 09:55 Constitutional: Yes: Mild Distress Eyes: Yes: WNL HENT: Yes: WNL Neck: Yes: WNL Cardiovascular: Yes: WNL Respiratory: Yes: On Venti-Mask, Poor Air Entry, SOB, SOB on Exertion, Wheezes Gastrointestinal: Yes: WNL Genitourinary: Yes: Currie Present Musculoskeletal: Yes: Muscle Weakness Extremities: Yes: WNL Edema: No Peripheral Pulses WNL: Yes Integumentary: Yes: Bruising, Erythema Wound/Incision: Yes: Clean/Dry, Dressing Dry and Intact Neurological: Yes: Pre-Existing Deficit ...Motor Strength: LLE, RLE Psychiatric: Yes: WNL Labs: CBC, BMP 12/21/16 05:35 12/21/16 05:35 INR, PTT INR 1.12 (0.82-1.09) 12/16/16 12:00 Problem List - Problems (1) Pneumonia Code(s): J18.9 - PNEUMONIA, UNSPECIFIED ORGANISM Qualifiers: Qualified Code(s): J18.9 - Pneumonia, unspecified organism (2) Microcytic anemia Code(s): D50.9 - IRON DEFICIENCY ANEMIA, UNSPECIFIED (3) UTI (urinary tract infection) Code(s): N39.0 - URINARY TRACT INFECTION, SITE NOT SPECIFIED (4) BPH (benign prostatic hyperplasia) Code(s): N40.0 - BENIGN PROSTATIC HYPERPLASIA WITHOUT LOWER URINRY TRACT SYMP (5) CAD (coronary artery disease) Code(s): I25.10 - ATHSCL HEART DISEASE OF [place] CORONARY ARTERY W/O ANG PCTRS (6) CHF (congestive heart failure) Code(s): I50.9 - HEART FAILURE, UNSPECIFIED Qualifiers: Qualified Code(s): I50.23 - Acute on chronic systolic (congestive) heart failure (7) Diabetes Code(s): E11.9 - TYPE 2 DIABETES MELLITUS WITHOUT COMPLICATIONS (8) Respiratory distress Code(s): R06.00 - DYSPNEA, UNSPECIFIED (9) CKD (chronic kidney disease) Code(s): N18.9 - CHRONIC KIDNEY DISEASE, UNSPECIFIED Qualifiers: Qualified Code(s): N18.3 - Chronic kidney disease, stage 3 (moderate) Assessment/Plan CHANGED TO FABI UMANA IV STEROIDS?? PULMONARY TO DISCUSS WITH ID IRWIN CISNEROS OOB TO CHAIR 02 SUPPORT ECHO CARDIO EVAL
--- NOTE | 2016-12-21 11:36 | PN ---
Progress Note, Physician History of Present Illness: pulmonary alert,on 100% nrm,less dyspneic,+ cough.febrile - Current Medication List Current Medications: Active Medications Acetaminophen (Tylenol -) 650 mg PO Q6H PRN PRN Reason: FEVER OR PAIN Last Admin: 12/21/16 05:46 Dose: 650 mg Albuterol/Ipratropium (Duoneb -) 1 amp NEB Q6H PRN PRN Reason: SHORTNESS OF BREATH Last Admin: 12/20/16 23:30 Dose: 1 amp Amino Acids (Prosource No Carb Liquid Pkt) 30 ml PO BID@0800,1730 [facility] Last Admin: 12/21/16 08:20 Dose: 30 ml Ascorbic Acid (Vitamin C -) 250 mg PO BID [facility] Last Admin: 12/21/16 09:35 Dose: 250 mg Aspirin (Ecotrin -) 81 mg PO DAILY [facility] Last Admin: 12/21/16 09:34 Dose: 81 mg Bacitracin (Bacitracin -) 1 applic TP DAILY [facility] Last Admin: 12/21/16 09:34 Dose: 1 applic Clopidogrel Bisulfate (Plavix -) 75 mg PO DAILY [facility] Last Admin: 12/21/16 09:34 Dose: 75 mg Collagenase (Santyl -) 1 applic TP DAILY [facility] Last Admin: 12/21/16 09:34 Dose: Not Given Furosemide (Lasix Injection -) 40 mg IVPB DAILY [facility] Last Admin: 12/21/16 09:34 Dose: 40 mg Piperacillin Sod/Tazobactam Sod (Zosyn 3.375gm Ivpb (Pre-Docked)) 50 mls @ 100 mls/hr IVPB Q8H-IV JONAS PRN Reason: Protocol Last Admin: 12/21/16 09:35 Dose: 100 mls/hr Insulin Aspart (Novolog Vial Sliding Scale -) 1 vial SQ ACHS JONAS PRN Reason: Protocol Last Admin: 12/21/16 06:31 Dose: 2 units Insulin Detemir (Levemir Vial) 35 units SQ AM JONAS Insulin Detemir (Levemir Vial) 15 units SQ HS JONAS Magnesium Hydroxide (Milk Of Magnesia -) 30 ml PO HS PRN PRN Reason: CONSTIPATION Last Admin: 12/19/16 22:08 Dose: 30 ml Multivitamins/Minerals/Vitamin C (Tab-A-Vit -) 1 tab PO DAILY [facility] Last Admin: 12/21/16 09:34 Dose: 1 tab Pantoprazole Sodium (Protonix -) 40 mg PO DAILY [facility] Last Admin: 12/21/16 09:34 Dose: 40 mg Silver Sulfadiazine (Silvadene -) 1 applic TP BID [facility] Last Admin: 12/21/16 09:34 Dose: 1 applic Tamsulosin HCl (Flomax -) 0.4 mg PO DAILY@0830 [facility] Last Admin: 12/21/16 08:20 Dose: 0.4 mg Zinc Sulfate (Orazinc -) 220 mg PO DAILY [facility] Last Admin: 12/21/16 09:34 Dose: 220 mg - Objective Vital Signs: Vital Signs Temperature 101.1 F H 12/21/16 05:25 Pulse Rate 77 12/21/16 09:55 Respiratory Rate 20 12/21/16 05:25 Blood Pressure 121/57 12/21/16 05:25 O2 Sat by Pulse Oximetry (%) 94 L 12/21/16 09:55 Constitutional: Yes: Calm, Thin Eyes: Yes: WNL HENT: Yes: WNL Neck: Yes: WNL Cardiovascular: Yes: Regular Rate and Rhythm, S1, S2 Respiratory: Yes: Rhonchi (scattered rhonchi) Gastrointestinal: Yes: Normal Bowel Sounds, Soft Extremities: Yes: WNL Edema: No Labs: CBC, BMP 12/21/16 05:35 12/21/16 05:35 INR, PTT INR 1.12 (0.82-1.09) 12/16/16 12:00 Problem List - Problems (1) Acute hypoxemic respiratory failure Code(s): J96.01 - ACUTE RESPIRATORY FAILURE WITH HYPOXIA Assessment/Plan Problem List - Problems (1) CKD (chronic kidney disease) Code(s): N18.9 - CHRONIC KIDNEY DISEASE, UNSPECIFIED (2) PAD (peripheral artery disease) Code(s): I73.9 - PERIPHERAL VASCULAR DISEASE, UNSPECIFIED (3) Pneumonia Code(s): J18.9 - PNEUMONIA, UNSPECIFIED ORGANISM Qualifiers: Pneumonia type: due to unspecified organism Laterality: bilateral Lung location: unspecified part of lung Qualified Code(s): J18.9 - Pneumonia, unspecified organism (4) Respiratory distress Code(s): R06.00 - DYSPNEA, UNSPECIFIED (5) Microcytic anemia Code(s): D50.9 - IRON DEFICIENCY ANEMIA, UNSPECIFIED (6) BPH (benign prostatic hyperplasia) Code(s): N40.0 - BENIGN PROSTATIC HYPERPLASIA WITHOUT LOWER URINRY TRACT SYMP (7) CAD (coronary artery disease) Code(s): I25.10 - ATHSCL HEART DISEASE OF [place] CORONARY ARTERY W/O ANG PCTRS Qualifiers: Associated angina: with unspecified angina (8) CHF (congestive heart failure) Code(s): I50.9 - HEART FAILURE, UNSPECIFIED Qualifiers: Congestive heart failure type: systolic Congestive heart failure chronicity: acute on chronic Qualified Code(s): I50.23 - Acute on chronic systolic (congestive) heart failure (9) Diabetes Code(s): E11.9 - TYPE 2 DIABETES MELLITUS WITHOUT COMPLICATIONS Qualifiers: Diabetes mellitus complication status: with other specified complication 10 ACUTE HYPOXEMIC RESPIRATORY FAILURE I1. PNEUMONIA 12 ILD Assessment/Plan O2 as needed to maintain saturation Lasix ABX per ID Daily weight I&O BD TX solumedrol x [address] Tyler
[2016-12-21] MEDS ORDERED: guaiFENesin/D-METHORPHAN HB 10 ML UNIT-DOSE CUPS PO PRN (11:39)
[2016-12-21] MEDS: MAG HYDROX/ALH/SMC/DPHA/LIDO 240 ML MOUTHWASH MM SCH ×2 (12:00→18:56)
[2016-12-21] MEDS: ARFORMOTEROL TARTRATE 15 MCG/2 ML VIAL NEB SCH ×2 (12:05→22:25)
--- NOTE | 2016-12-21 12:31 | PN ---
Progress Note, Physician History of Present Illness: Pt seen and examined at bedside.He is awake and alert. He complains of shortness of breath. - Current Medication List Current Medications: Active Medications Acetaminophen (Tylenol -) 650 mg PO Q6H PRN PRN Reason: FEVER OR PAIN Last Admin: 12/21/16 05:46 Dose: 650 mg Amino Acids (Prosource No Carb Liquid Pkt) 30 ml PO BID@0800,1730 [facility] Last Admin: 12/21/16 08:20 Dose: 30 ml Arformoterol Tartrate (Brovana (Restricted To Pulmonology/Resp) -) 1 amp NEB BID [facility] Last Admin: 12/21/16 12:05 Dose: 1 amp Ascorbic Acid (Vitamin C -) 250 mg PO BID [facility] Last Admin: 12/21/16 09:35 Dose: 250 mg Aspirin (Ecotrin -) 81 mg PO DAILY [facility] Last Admin: 12/21/16 09:34 Dose: 81 mg Bacitracin (Bacitracin -) 1 applic TP DAILY [facility] Last Admin: 12/21/16 09:34 Dose: 1 applic Clopidogrel Bisulfate (Plavix -) 75 mg PO DAILY [facility] Last Admin: 12/21/16 09:34 Dose: 75 mg Collagenase (Santyl -) 1 applic TP DAILY [facility] Last Admin: 12/21/16 09:34 Dose: Not Given Furosemide (Lasix Injection -) 40 mg IVPB DAILY [facility] Last Admin: 12/21/16 09:34 Dose: 40 mg Guaifenesin (Robitussin Dm -) 10 ml PO Q6H PRN PRN Reason: COUGH Piperacillin Sod/Tazobactam Sod (Zosyn 3.375gm Ivpb (Pre-Docked)) 50 mls @ 100 mls/hr IVPB Q8H-IV JONAS PRN Reason: Protocol Last Admin: 12/21/16 09:35 Dose: 100 mls/hr Insulin Aspart (Novolog Vial Sliding Scale -) 1 vial SQ ACHS [facility] PRN Reason: Protocol Last Admin: 12/21/16 06:31 Dose: 2 units Insulin Detemir (Levemir Vial) 35 units SQ AM JONAS Insulin Detemir (Levemir Vial) 15 units SQ HS JONAS Lidocaine/Aluminum/Magnesium/Simeth (Magic Mouthwash *Sjr Formula* -) 5 ml MM Q6HPO JONAS Magnesium Hydroxide (Milk Of Magnesia -) 30 ml PO HS PRN PRN Reason: CONSTIPATION Last Admin: 12/19/16 22:08 Dose: 30 ml Methylprednisolone Sodium Succinate (Solu-Medrol -) 40 mg IVPB Q6H-IV [facility] Multivitamins/Minerals/Vitamin C (Tab-A-Vit -) 1 tab PO DAILY [facility] Last Admin: 12/21/16 09:34 Dose: 1 tab Pantoprazole Sodium (Protonix -) 40 mg PO DAILY [facility] Last Admin: 12/21/16 09:34 Dose: 40 mg Silver Sulfadiazine (Silvadene -) 1 applic TP BID [facility] Last Admin: 12/21/16 09:34 Dose: 1 applic Tamsulosin HCl (Flomax -) 0.4 mg PO DAILY@0830 [facility] Last Admin: 12/21/16 08:20 Dose: 0.4 mg Zinc Sulfate (Orazinc -) 220 mg PO DAILY [facility] Last Admin: 12/21/16 09:34 Dose: 220 mg - Objective Vital Signs: Vital Signs Temperature 98.5 F 12/21/16 10:00 Pulse Rate 78 12/21/16 10:00 Respiratory Rate 22 12/21/16 10:00 Blood Pressure 109/43 12/21/16 10:00 O2 Sat by Pulse Oximetry (%) 94 L 12/21/16 09:55 Constitutional: Yes: Calm Eyes: Yes: Conjunctiva Clear HENT: Yes: Atraumatic Neck: Yes: Supple Cardiovascular: Yes: S1, S2 Respiratory: Yes: On Venti-Mask Gastrointestinal: Yes: Soft Genitourinary: Yes: Currie Present Musculoskeletal: Yes: WNL Edema: No Neurological: Yes: Oriented Psychiatric: Yes: Oriented Labs: CBC, BMP 12/21/16 05:35 12/21/16 05:35 INR, PTT INR 1.12 (0.82-1.09) 12/16/16 12:00 - ....Imaging Other: Report Reviewed (echo shows lv hypokinesis) Problem List - Problems (1) Pneumonia Code(s): J18.9 - PNEUMONIA, UNSPECIFIED ORGANISM Qualifiers: Pneumonia type: due to unspecified organism Laterality: bilateral Lung location: unspecified part of lung Qualified Code(s): J18.9 - Pneumonia, unspecified organism (2) Respiratory distress Code(s): R06.00 - DYSPNEA, UNSPECIFIED (3) BPH (benign prostatic hyperplasia) Code(s): N40.0 - BENIGN PROSTATIC HYPERPLASIA WITHOUT LOWER URINRY TRACT SYMP (4) CAD (coronary artery disease) Code(s): I25.10 - ATHSCL HEART DISEASE OF [place] CORONARY ARTERY W/O ANG PCTRS Qualifiers: Associated angina: with unspecified angina (5) CHF (congestive heart failure) Code(s): I50.9 - HEART FAILURE, UNSPECIFIED Qualifiers: Congestive heart failure type: systolic Congestive heart failure chronicity: acute on chronic Qualified Code(s): I50.23 - Acute on chronic systolic (congestive) heart failure (6) Diabetes Code(s): E11.9 - TYPE 2 DIABETES MELLITUS WITHOUT COMPLICATIONS Qualifiers: Diabetes mellitus complication status: with other specified complication (7) CKD (chronic kidney disease) Code(s): N18.9 - CHRONIC KIDNEY DISEASE, UNSPECIFIED Qualifiers: Chronic kidney disease stage: stage 3 (moderate) Qualified Code(s): N18.3 - Chronic kidney disease, stage 3 (moderate) Assessment/Plan Current Medications Generic Name Dose Route Start Last Admin Trade Name Freq PRN Reason Stop Dose Admin Acetaminophen 650 mg 12/19/16 20:28 12/21/16 05:46 Tylenol - PO 650 mg Q6H PRN Administration FEVER OR PAIN Amino Acids 30 ml 12/21/16 08:00 12/21/16 08:20 Prosource No Carb Liquid Pkt PO 30 ml BID@0800,1730 JONAS Administration Arformoterol Tartrate 1 amp 12/21/16 11:45 12/21/16 12:05 Brovana (Restricted To Pulmonology/Resp) - NEB 1 amp BID JONAS Administration Ascorbic Acid 250 mg 12/20/16 22:00 12/21/16 09:35 Vitamin C - PO 250 mg BID JONAS Administration Aspirin 81 mg 12/17/16 10:00 12/21/16 09:34 Ecotrin - PO 81 mg DAILY JONAS Administration Bacitracin 1 applic 12/19/16 11:45 12/21/16 09:34 Bacitracin - TP 1 applic DAILY JONAS Administration Clopidogrel Bisulfate 75 mg 12/17/16 10:00 12/21/16 09:34 Plavix - PO 75 mg DAILY JONAS Administration Collagenase 1 applic 12/17/16 10:00 12/21/16 09:34 Santyl - TP Not Given DAILY JONAS Furosemide 40 mg 12/16/16 17:00 12/21/16 09:34 Lasix Injection - IVPB 40 mg DAILY JONAS Administration Guaifenesin 10 ml 12/21/16 11:39 Robitussin Dm - PO Q6H PRN COUGH Piperacillin Sod/Tazobactam Sod 50 mls @ 100 mls/hr 12/16/16 18:00 12/21/16 09: 35 Zosyn 3.375gm Ivpb (Pre-Docked) IVPB 100 mls/hr Q8H-IV JONAS Administration Protocol Insulin Aspart 1 vial 12/16/16 22:00 12/21/16 06:31 Novolog Vial Sliding Scale - SQ 2 units ACHS JONAS Administration Protocol Insulin Detemir 35 units 12/20/16 12:46 Levemir Vial SQ AM JONAS Insulin Detemir 15 units 12/21/16 22:00 Levemir Vial SQ HS JONAS Lidocaine/Aluminum/Magnesium/Simeth 5 ml 12/21/16 12:00 Magic Mouthwash *Sjr Formula* - MM Q6HPO JONAS Magnesium Hydroxide 30 ml 12/19/16 20:34 12/19/16 22:08 Milk Of Magnesia - PO 30 ml HS PRN Administration CONSTIPATION Methylprednisolone Sodium Succinate 40 mg 12/21/16 11:45 Solu-Medrol - IVPB Q6H-IV [facility] Multivitamins/Minerals/Vitamin C 1 tab 12/21/16 10:00 12/21/16 09:34 Tab-A-Vit - PO 1 tab DAILY JONAS Administration Pantoprazole Sodium 40 mg 12/16/16 17:00 12/21/16 09:34 Protonix - PO 40 mg DAILY JONAS Administration Silver Sulfadiazine 1 applic 12/20/16 22:00 12/21/16 09:34 Silvadene - TP 1 applic BID JONAS Administration Tamsulosin HCl 0.4 mg 12/17/16 08:30 12/21/16 08:20 Flomax - PO 0.4 mg DAILY@0830 JONAS Administration Zinc Sulfate 220 mg 12/21/16 10:00 12/21/16 09:34 Orazinc - PO 220 mg DAILY JONAS Administration Impression 1. CKD 2. hx CVA 3. CAD 4. DM 5. BPH 6. chol 7. PVD 8. s/p angio of the right leg with stenting 9. PNA 10. dyspnea 11. lactic acidosis Plan - renal function is improving - cont with lasix - repeat labs in am - pulmonary follow up - monitor pulse ox - echo report reviewed - discussed plan with pt and Dr Wilson
[2016-12-21] MEDS: methylPREDNISolone NA SUCC 40 MG/1 ML VIAL IVPB SCH ×3 (12:41→22:14)
[2016-12-21] MEDS ORDERED: FUROSEMIDE 100 MG/10 ML INJECTABLE VIAL IVPUSH ONE (13:53)
[2016-12-21 13:58] LABS: ARTERIAL BLD GAS O2 SATURATION 76.6 % (90-98.9); ARTERIAL BLOOD GAS BASE EXCESS 3.1 meq/l (-2-2); ARTERIAL BLOOD GAS HCO3 27.4 meq/L (22-26); ARTERIAL BLOOD GAS pH 7.42 (7.35-7.45)
[2016-12-21 14:02] LABS: ALLENS TEST POSITIVE; ART PUNCT SITE RIGHT RADIAL; LPM/O2% 100%; PT. ON O2? YES; TYPE OF O2 NONREBREATHER
[2016-12-21 14:03] LABS: ARTERIAL BLOOD GAS PO2 47.8 mmHg (68-100)
--- NOTE | 2016-12-21 14:44 | PN ---
Progress Note, Physician Chief Complaint: Cardiology follow up On NRG mask. Vomiting with acute hypoxemia earlier today. BP stable. Telem NSR History of Present Illness: less sob. Comfortable. tele negative. History of Present Illness: he is an 81 year old man history of NIDDM, CAD s/p CABG at [facility], BPH, CKD, pneumonia, chronic systolic CHF who was recently admitted at [facility] for PVD and leg ulcer s/p angio complicated by ATN resolved now admitted with sob and hypoxia with volume overload and PNA. No chest pain. # pillow orthopnea. no edema. - Current Medication List Current Medications: Active Medications Acetaminophen (Tylenol -) 650 mg PO Q6H PRN PRN Reason: FEVER OR PAIN Last Admin: 12/21/16 05:46 Dose: 650 mg Amino Acids (Prosource No Carb Liquid Pkt) 30 ml PO BID@0800,1730 [facility] Last Admin: 12/21/16 08:20 Dose: 30 ml Arformoterol Tartrate (Brovana (Restricted To Pulmonology/Resp) -) 1 amp NEB BID [facility] Last Admin: 12/21/16 12:05 Dose: 1 amp Ascorbic Acid (Vitamin C -) 250 mg PO BID [facility] Last Admin: 12/21/16 09:35 Dose: 250 mg Aspirin (Ecotrin -) 81 mg PO DAILY [facility] Last Admin: 12/21/16 09:34 Dose: 81 mg Bacitracin (Bacitracin -) 1 applic TP DAILY [facility] Last Admin: 12/21/16 09:34 Dose: 1 applic Clopidogrel Bisulfate (Plavix -) 75 mg PO DAILY [facility] Last Admin: 12/21/16 09:34 Dose: 75 mg Collagenase (Santyl -) 1 applic TP DAILY [facility] Last Admin: 12/21/16 09:34 Dose: Not Given Furosemide (Lasix Injection -) 40 mg IVPB DAILY [facility] Last Admin: 12/21/16 09:34 Dose: 40 mg Guaifenesin (Robitussin Dm -) 10 ml PO Q6H PRN PRN Reason: COUGH Piperacillin Sod/Tazobactam Sod (Zosyn 3.375gm Ivpb (Pre-Docked)) 50 mls @ 100 mls/hr IVPB Q8H-IV JONAS PRN Reason: Protocol Last Admin: 12/21/16 09:35 Dose: 100 mls/hr Insulin Aspart (Novolog Vial Sliding Scale -) 1 vial SQ ACHS [facility] PRN Reason: Protocol Last Admin: 12/21/16 12:41 Dose: 6 units Insulin Detemir (Levemir Vial) 35 units SQ AM [facility] Last Admin: 12/21/16 08:00 Dose: Not Given Insulin Detemir (Levemir Vial) 15 units SQ HS [facility] Lidocaine/Aluminum/Magnesium/Simeth (Magic Mouthwash *Sjr Formula* -) 5 ml MM Q6HPO [facility] Magnesium Hydroxide (Milk Of Magnesia -) 30 ml PO HS PRN PRN Reason: CONSTIPATION Last Admin: 12/19/16 22:08 Dose: 30 ml Methylprednisolone Sodium Succinate (Solu-Medrol -) 40 mg IVPB Q6H-IV [facility] Last Admin: 12/21/16 12:41 Dose: 40 mg Multivitamins/Minerals/Vitamin C (Tab-A-Vit -) 1 tab PO DAILY [facility] Last Admin: 12/21/16 09:34 Dose: 1 tab Pantoprazole Sodium (Protonix -) 40 mg PO DAILY [facility] Last Admin: 12/21/16 09:34 Dose: 40 mg Silver Sulfadiazine (Silvadene -) 1 applic TP BID [facility] Last Admin: 12/21/16 09:34 Dose: 1 applic Tamsulosin HCl (Flomax -) 0.4 mg PO DAILY@0830 [facility] Last Admin: 12/21/16 08:20 Dose: 0.4 mg Zinc Sulfate (Orazinc -) 220 mg PO DAILY [facility] Last Admin: 12/21/16 09:34 Dose: 220 mg - Objective Vital Signs: Vital Signs Temperature 98.5 F 12/21/16 10:00 Pulse Rate 77 12/21/16 14:33 Respiratory Rate 22 12/21/16 10:00 Blood Pressure 109/43 12/21/16 10:00 O2 Sat by Pulse Oximetry (%) 94 L 12/21/16 14:33 Constitutional: Yes: Mild Distress Eyes: Yes: WNL HENT: Yes: WNL Neck: Yes: WNL Cardiovascular: Yes: Regular Rate and Rhythm, JVD (10cm) Respiratory: Yes: Cough, Rales Gastrointestinal: Yes: WNL Edema: No Labs: CBC, BMP 12/21/16 05:35 12/21/16 05:35 INR, PTT INR 1.12 (0.82-1.09) 12/16/16 12:00 Troponin, BNP 12/21/16 12/21/16 05:35 05:35 B-Natriuretic Peptide 4064.19 H Cancelled - ....Imaging Other: Other (Echocardiogram) Problem List - Problems (1) Acute hypoxemic respiratory failure Assessment/Plan: Pneumonia with acute on chronic systolic heart failure. Diuresing with reduced BNP level. Continue IV lasix. Add Metoprolol XL 12.5mg QD Hold for SBP <100mmHg Attempt to lower O2 to Venti mask. Continue BiPAP Code(s): J96.01 - ACUTE RESPIRATORY FAILURE WITH HYPOXIA (2) CAD (coronary artery disease) Code(s): I25.10 - ATHSCL HEART DISEASE OF [place] CORONARY ARTERY W/O ANG PCTRS Qualifiers: Associated angina: without angina
[2016-12-21 14:53] LABS: TROPONIN I 0.03 ng/ml (0.00-0.05)
--- NOTE | 2016-12-21 21:41 | PN ---
Progress Note, Physician History of Present Illness: Awake, alert +cough Appears comfortable on nasal cannula O2 Temp spike noted Mild leukocytosis on steroids - Current Medication List Current Medications: Active Medications Acetaminophen (Tylenol -) 650 mg PO Q6H PRN PRN Reason: FEVER OR PAIN Last Admin: 12/21/16 21:05 Dose: 650 mg Amino Acids (Prosource No Carb Liquid Pkt) 30 ml PO BID@0800,1730 [facility] Last Admin: 12/21/16 18:55 Dose: 30 ml Arformoterol Tartrate (Brovana (Restricted To Pulmonology/Resp) -) 1 amp NEB BID [facility] Last Admin: 12/21/16 12:05 Dose: 1 amp Ascorbic Acid (Vitamin C -) 250 mg PO BID [facility] Last Admin: 12/21/16 09:35 Dose: 250 mg Aspirin (Ecotrin -) 81 mg PO DAILY [facility] Last Admin: 12/21/16 09:34 Dose: 81 mg Bacitracin (Bacitracin -) 1 applic TP DAILY [facility] Last Admin: 12/21/16 09:34 Dose: 1 applic Clopidogrel Bisulfate (Plavix -) 75 mg PO DAILY [facility] Last Admin: 12/21/16 09:34 Dose: 75 mg Collagenase (Santyl -) 1 applic TP DAILY [facility] Last Admin: 12/21/16 09:34 Dose: Not Given Furosemide (Lasix Injection -) 40 mg IVPB DAILY [facility] Last Admin: 12/21/16 09:34 Dose: 40 mg Guaifenesin (Robitussin Dm -) 10 ml PO Q6H PRN PRN Reason: COUGH Piperacillin Sod/Tazobactam Sod (Zosyn 3.375gm Ivpb (Pre-Docked)) 50 mls @ 100 mls/hr IVPB Q8H-IV JONAS PRN Reason: Protocol Last Admin: 12/21/16 18:55 Dose: 100 mls/hr Insulin Aspart (Novolog Vial Sliding Scale -) 1 vial SQ ACHS [facility] PRN Reason: Protocol Last Admin: 12/21/16 16:40 Dose: 8 units Insulin Detemir (Levemir Vial) 35 units SQ AM [facility] Last Admin: 12/21/16 08:00 Dose: Not Given Insulin Detemir (Levemir Vial) 15 units SQ HS [facility] Lidocaine/Aluminum/Magnesium/Simeth (Magic Mouthwash *Sjr Formula* -) 5 ml MM Q6HPO [facility] Last Admin: 12/21/16 18:56 Dose: Not Given Magnesium Hydroxide (Milk Of Magnesia -) 30 ml PO HS PRN PRN Reason: CONSTIPATION Last Admin: 12/19/16 22:08 Dose: 30 ml Methylprednisolone Sodium Succinate (Solu-Medrol -) 40 mg IVPB Q6H-IV [facility] Last Admin: 12/21/16 15:00 Dose: Not Given Metoprolol Succinate (Toprol Xl -) 12.5 mg PO DAILY [facility] Multivitamins/Minerals/Vitamin C (Tab-A-Vit -) 1 tab PO DAILY [facility] Last Admin: 12/21/16 09:34 Dose: 1 tab Pantoprazole Sodium (Protonix -) 40 mg PO DAILY [facility] Last Admin: 12/21/16 09:34 Dose: 40 mg Silver Sulfadiazine (Silvadene -) 1 applic TP BID [facility] Last Admin: 12/21/16 09:34 Dose: 1 applic Tamsulosin HCl (Flomax -) 0.4 mg PO DAILY@0830 [facility] Last Admin: 12/21/16 08:20 Dose: 0.4 mg Zinc Sulfate (Orazinc -) 220 mg PO DAILY [facility] Last Admin: 12/21/16 09:34 Dose: 220 mg - Objective Vital Signs: Vital Signs Temperature 98.2 F 12/21/16 17:00 Pulse Rate 76 12/21/16 17:00 Respiratory Rate 20 12/21/16 17:00 Blood Pressure 148/64 12/21/16 17:00 O2 Sat by Pulse Oximetry (%) 90 L 12/21/16 17:57 Constitutional: Yes: No Distress Eyes: Yes: Conjunctiva Clear Cardiovascular: Yes: Regular Rate and Rhythm, S1, S2 Respiratory: Yes: CTA Bilaterally Gastrointestinal: Yes: Normal Bowel Sounds, Soft Edema: No Labs: CBC, BMP 12/21/16 05:35 12/21/16 05:35 INR, PTT INR 1.12 (0.82-1.09) 12/16/16 12:00 Assessment/Plan CHF bilateral upper lobe infiltrates Leukocytosis Azotemia R foot ulcer Continue empiric zosy check Sputum c/s Local wound care
[2016-12-21] MEDS ORDERED: INSULIN DETEMIR 100 UNITS/ML MDV SQ SCH (22:00)
[2016-12-21] MEDS ORDERED: PT OWN MED DRAWER 7, Y5N ONE (22:12)
[2016-12-22] MEDS: MAG HYDROX/ALH/SMC/DPHA/LIDO 240 ML MOUTHWASH MM SCH ×4 (02:04→17:46)
[2016-12-22] MEDS: PIPERACILLIN/TAZOB 3.375 GM 50 ML IVPB SCH ×3 (02:20→17:45)
[2016-12-22] MEDS: methylPREDNISolone NA SUCC 40 MG/1 ML VIAL IVPB SCH ×4 (02:20→22:28)
[2016-12-22] MEDS: INSULIN SLIDING SCALE (NOVOLOG) 1 VIAL SQ SCH ×4 (07:27→22:19)
[2016-12-22] MEDS: INSULIN DETEMIR 100 UNITS/ML MDV SQ SCH ×2 (07:27→22:28)
[2016-12-22] MEDS: AMINO ACIDS/PROTEIN HYDROLYS 30 ML LIQUID.PKT PO SCH ×2 (09:43→17:45)
[2016-12-22] MEDS: TAMSULOSIN HCL 0.4 MG CAP.ER.24H (FP) PO SCH (09:43)
[2016-12-22] MEDS: ASPIRIN COATED 81 MG TABLET.EC PO SCH (09:44)
[2016-12-22] MEDS: PANTOPRAZOLE 40 MG TABLET (FP) PO SCH (09:44)
[2016-12-22] MEDS: ZINC SULFATE 220 MG CAPSULE (FP) PO SCH (09:44)
[2016-12-22] MEDS: SILVER SULFADIAZINE 1% TOP CREAM 50 GM JAR TP SCH ×2 (09:44→22:29)
[2016-12-22] MEDS: FUROSEMIDE 40 MG/4 ML INJECTABLE VIAL IVPB SCH (09:44)
[2016-12-22] MEDS: MULTIVITAMINS (DAILY MVI) TABLET (FP) PO SCH (09:44)
[2016-12-22] MEDS: CLOPIDOGREL BISULFATE 75 MG TABLET (FP) PO SCH (09:44)
[2016-12-22] MEDS: COLLAGENASE CLOSTRIDIUM HIST. 30 GRAMS TUBE TP SCH (09:45)
[2016-12-22] MEDS: BACITRACIN 15 GM TUBE TOPICAL OINTMENT TP SCH (09:45)
[2016-12-22] MEDS ORDERED: PT OWN MED DRAWER 7, Y5N ONE (09:47)
[2016-12-22] MEDS: ASCORBIC ACID 250 MG TABLET (FP) PO SCH ×2 (09:49→22:29)
[2016-12-22] MEDS ORDERED: METOPROLOL SUCCINATE 25 MG TAB.SR.24H (FP) PO SCH (10:00)
[2016-12-22] MEDS: ARFORMOTEROL TARTRATE 15 MCG/2 ML VIAL NEB SCH ×2 (10:30→22:36)
--- NOTE | 2016-12-22 12:08 | PN ---
Progress Note, Physician Chief Complaint: BEDSIDE PATIENT IS NOT COMPLIANT WITH BIPAP ON VENTI MASK AND I EXPLAINED WE CAN NOT KEEP HIM ON VENTIMASK BECAUSE HE WILL DELAY HIS RECOVERY OR POSSIBLY WORSEN. - Current Medication List Current Medications: Active Medications Acetaminophen (Tylenol -) 650 mg PO Q6H PRN PRN Reason: FEVER OR PAIN Last Admin: 12/21/16 21:05 Dose: 650 mg Amino Acids (Prosource No Carb Liquid Pkt) 30 ml PO BID@0800,1730 [facility] Last Admin: 12/22/16 09:43 Dose: 30 ml Arformoterol Tartrate (Brovana (Restricted To Pulmonology/Resp) -) 1 amp NEB BID [facility] Last Admin: 12/22/16 10:30 Dose: 1 amp Ascorbic Acid (Vitamin C -) 250 mg PO BID [facility] Last Admin: 12/22/16 09:49 Dose: 250 mg Aspirin (Ecotrin -) 81 mg PO DAILY [facility] Last Admin: 12/22/16 09:44 Dose: 81 mg Bacitracin (Bacitracin -) 1 applic TP DAILY [facility] Last Admin: 12/22/16 09:45 Dose: 1 applic Clopidogrel Bisulfate (Plavix -) 75 mg PO DAILY [facility] Last Admin: 12/22/16 09:44 Dose: 75 mg Collagenase (Santyl -) 1 applic TP DAILY [facility] Last Admin: 12/22/16 09:45 Dose: Not Given Furosemide (Lasix Injection -) 40 mg IVPB DAILY [facility] Last Admin: 12/22/16 09:44 Dose: 40 mg Guaifenesin (Robitussin Dm -) 10 ml PO Q6H PRN PRN Reason: COUGH Piperacillin Sod/Tazobactam Sod (Zosyn 3.375gm Ivpb (Pre-Docked)) 50 mls @ 100 mls/hr IVPB Q8H-IV JONAS PRN Reason: Protocol Last Admin: 12/22/16 09:45 Dose: 100 mls/hr Insulin Aspart (Novolog Vial Sliding Scale -) 1 vial SQ ACHS JONAS PRN Reason: Protocol Last Admin: 12/22/16 07:27 Dose: 8 units Insulin Detemir (Levemir Vial) 35 units SQ AM [facility] Last Admin: 12/22/16 07:27 Dose: 35 units Insulin Detemir (Levemir Vial) 15 units SQ HS [facility] Last Admin: 12/21/16 22:14 Dose: 15 units Lidocaine/Aluminum/Magnesium/Simeth (Magic Mouthwash *Sjr Formula* -) 5 ml MM Q6HPO [facility] Last Admin: 12/22/16 07:27 Dose: Not Given Magnesium Hydroxide (Milk Of Magnesia -) 30 ml PO HS PRN PRN Reason: CONSTIPATION Last Admin: 12/19/16 22:08 Dose: 30 ml Methylprednisolone Sodium Succinate (Solu-Medrol -) 40 mg IVPB Q6H-IV [facility] Last Admin: 12/22/16 09:44 Dose: 40 mg Metoprolol Succinate (Toprol Xl -) 12.5 mg PO DAILY [facility] Last Admin: 12/22/16 09:44 Dose: 12.5 mg Multivitamins/Minerals/Vitamin C (Tab-A-Vit -) 1 tab PO DAILY [facility] Last Admin: 12/22/16 09:44 Dose: 1 tab Pantoprazole Sodium (Protonix -) 40 mg PO DAILY [facility] Last Admin: 12/22/16 09:44 Dose: 40 mg Silver Sulfadiazine (Silvadene -) 1 applic TP BID [facility] Last Admin: 12/22/16 09:44 Dose: 1 applic Tamsulosin HCl (Flomax -) 0.4 mg PO DAILY@0830 [facility] Last Admin: 12/22/16 09:43 Dose: 0.4 mg Zinc Sulfate (Orazinc -) 220 mg PO DAILY [facility] Last Admin: 12/22/16 09:44 Dose: 220 mg - Objective Vital Signs: Vital Signs Temperature 97.8 F 12/22/16 06:00 Pulse Rate 67 12/22/16 10:41 Respiratory Rate 20 12/22/16 06:00 Blood Pressure 154/80 12/22/16 06:00 O2 Sat by Pulse Oximetry (%) 91 L 12/22/16 10:41 Constitutional: Yes: Moderate Distress Eyes: Yes: WNL HENT: Yes: WNL Neck: Yes: WNL Cardiovascular: Yes: WNL Respiratory: Yes: On Venti-Mask, Rhonchi, SOB, SOB on Exertion Gastrointestinal: Yes: WNL Genitourinary: Yes: Currie Present Musculoskeletal: Yes: Muscle Weakness Extremities: Yes: WNL Edema: No Peripheral Pulses WNL: Yes Integumentary: Yes: Pressure Ulcer, Rash Wound/Incision: Yes: Dressing Dry and Intact Neurological: Yes: Unsteady Gait, Weakness ...Motor Strength: LLE, RLE Psychiatric: Yes: WNL Labs: CBC, BMP 12/21/16 05:35 12/21/16 05:35 INR, PTT INR 1.12 (0.82-1.09) 12/16/16 12:00 Problem List - Problems (1) Pneumonia Code(s): J18.9 - PNEUMONIA, UNSPECIFIED ORGANISM Qualifiers: Pneumonia type: due to unspecified organism Laterality: bilateral Lung location: unspecified part of lung Qualified Code(s): J18.9 - Pneumonia, unspecified organism (2) Microcytic anemia Code(s): D50.9 - IRON DEFICIENCY ANEMIA, UNSPECIFIED (3) UTI (urinary tract infection) Code(s): N39.0 - URINARY TRACT INFECTION, SITE NOT SPECIFIED Qualifiers: Urinary tract infection type: acute cystitis (4) BPH (benign prostatic hyperplasia) Code(s): N40.0 - BENIGN PROSTATIC HYPERPLASIA WITHOUT LOWER URINRY TRACT SYMP (5) CAD (coronary artery disease) Code(s): I25.10 - ATHSCL HEART DISEASE OF [place] CORONARY ARTERY W/O ANG PCTRS Qualifiers: Associated angina: without angina (6) CHF (congestive heart failure) Code(s): I50.9 - HEART FAILURE, UNSPECIFIED Qualifiers: Congestive heart failure type: systolic Congestive heart failure chronicity: acute on chronic Qualified Code(s): I50.23 - Acute on chronic systolic (congestive) heart failure (7) Diabetes Code(s): E11.9 - TYPE 2 DIABETES MELLITUS WITHOUT COMPLICATIONS Qualifiers: Diabetes mellitus complication status: with other specified complication (8) Respiratory distress Code(s): R06.00 - DYSPNEA, UNSPECIFIED (9) CKD (chronic kidney disease) Code(s): N18.9 - CHRONIC KIDNEY DISEASE, UNSPECIFIED Qualifiers: Chronic kidney disease stage: stage 3 (moderate) Qualified Code(s): N18.3 - Chronic kidney disease, stage 3 (moderate) Assessment/Plan VOMITED YESTERDAY FROM STEROID IV, WILL DISCUSS WITH PULMONARY WILL NEED SWALLOW EVAL R/O ASPIRATIONS BIPAP AT NIGHT CHANGED TO BROVANO NEB IV STEROIDS?? PULMONARY TO DISCUSS WITH ID IV ABX OOB TO CHAIR 02 SUPPORT ECHO CARDIO EVAL
--- NOTE | 2016-12-22 12:20 | PN ---
Progress Note, Physician History of Present Illness: Pt seen and examined at bedside. He is awake and alert. He still complains of shortness of breath. - Current Medication List Current Medications: Active Medications Acetaminophen (Tylenol -) 650 mg PO Q6H PRN PRN Reason: FEVER OR PAIN Last Admin: 12/21/16 21:05 Dose: 650 mg Amino Acids (Prosource No Carb Liquid Pkt) 30 ml PO BID@0800,1730 [facility] Last Admin: 12/22/16 09:43 Dose: 30 ml Arformoterol Tartrate (Brovana (Restricted To Pulmonology/Resp) -) 1 amp NEB BID [facility] Last Admin: 12/22/16 10:30 Dose: 1 amp Ascorbic Acid (Vitamin C -) 250 mg PO BID [facility] Last Admin: 12/22/16 09:49 Dose: 250 mg Aspirin (Ecotrin -) 81 mg PO DAILY [facility] Last Admin: 12/22/16 09:44 Dose: 81 mg Bacitracin (Bacitracin -) 1 applic TP DAILY [facility] Last Admin: 12/22/16 09:45 Dose: 1 applic Clopidogrel Bisulfate (Plavix -) 75 mg PO DAILY [facility] Last Admin: 12/22/16 09:44 Dose: 75 mg Collagenase (Santyl -) 1 applic TP DAILY [facility] Last Admin: 12/22/16 09:45 Dose: Not Given Furosemide (Lasix Injection -) 40 mg IVPB DAILY [facility] Last Admin: 12/22/16 09:44 Dose: 40 mg Guaifenesin (Robitussin Dm -) 10 ml PO Q6H PRN PRN Reason: COUGH Piperacillin Sod/Tazobactam Sod (Zosyn 3.375gm Ivpb (Pre-Docked)) 50 mls @ 100 mls/hr IVPB Q8H-IV JONAS PRN Reason: Protocol Last Admin: 12/22/16 09:45 Dose: 100 mls/hr Insulin Aspart (Novolog Vial Sliding Scale -) 1 vial SQ ACHS [facility]ON[facility] PRN Reason: Protocol Last Admin: 12/22/16 07:27 Dose: 8 units Insulin Detemir (Levemir Vial) 35 units SQ AM [facility] Last Admin: 12/22/16 07:27 Dose: 35 units Insulin Detemir (Levemir Vial) 15 units SQ HS [facility] Last Admin: 12/21/16 22:14 Dose: 15 units Lidocaine/Aluminum/Magnesium/Simeth (Magic Mouthwash *Sjr Formula* -) 5 ml MM Q6HPO [facility] Last Admin: 12/22/16 07:27 Dose: Not Given Magnesium Hydroxide (Milk Of Magnesia -) 30 ml PO HS PRN PRN Reason: CONSTIPATION Last Admin: 12/19/16 22:08 Dose: 30 ml Methylprednisolone Sodium Succinate (Solu-Medrol -) 40 mg IVPB Q6H-IV [facility] Last Admin: 12/22/16 09:44 Dose: 40 mg Metoprolol Succinate (Toprol Xl -) 12.5 mg PO DAILY [facility] Last Admin: 12/22/16 09:44 Dose: 12.5 mg Multivitamins/Minerals/Vitamin C (Tab-A-Vit -) 1 tab PO DAILY [facility] Last Admin: 12/22/16 09:44 Dose: 1 tab Pantoprazole Sodium (Protonix -) 40 mg PO DAILY [facility] Last Admin: 12/22/16 09:44 Dose: 40 mg Silver Sulfadiazine (Silvadene -) 1 applic TP BID [facility] Last Admin: 12/22/16 09:44 Dose: 1 applic Tamsulosin HCl (Flomax -) 0.4 mg PO DAILY@0830 [facility] Last Admin: 12/22/16 09:43 Dose: 0.4 mg Zinc Sulfate (Orazinc -) 220 mg PO DAILY [facility] Last Admin: 12/22/16 09:44 Dose: 220 mg - Objective Vital Signs: Vital Signs Temperature 97.8 F 12/22/16 06:00 Pulse Rate 67 12/22/16 10:41 Respiratory Rate 20 12/22/16 06:00 Blood Pressure 154/80 12/22/16 06:00 O2 Sat by Pulse Oximetry (%) 91 L 12/22/16 10:41 Constitutional: Yes: Calm Eyes: Yes: Conjunctiva Clear HENT: Yes: Atraumatic Neck: Yes: Supple Cardiovascular: Yes: S1, S2 Respiratory: Yes: On Venti-Mask Gastrointestinal: Yes: Normal Bowel Sounds, Soft Musculoskeletal: Yes: Muscle Weakness Edema: No Neurological: Yes: Oriented Psychiatric: Yes: Oriented Labs: CBC, BMP 12/21/16 05:35 12/21/16 05:35 INR, PTT INR 1.12 (0.82-1.09) 12/16/16 12:00 Problem List - Problems (1) Pneumonia Code(s): J18.9 - PNEUMONIA, UNSPECIFIED ORGANISM Qualifiers: Pneumonia type: due to unspecified organism Laterality: bilateral Lung location: unspecified part of lung Qualified Code(s): J18.9 - Pneumonia, unspecified organism (2) Respiratory distress Code(s): R06.00 - DYSPNEA, UNSPECIFIED (3) BPH (benign prostatic hyperplasia) Code(s): N40.0 - BENIGN PROSTATIC HYPERPLASIA WITHOUT LOWER URINRY TRACT SYMP (4) CAD (coronary artery disease) Code(s): I25.10 - ATHSCL HEART DISEASE OF [place] CORONARY ARTERY W/O ANG PCTRS Qualifiers: Associated angina: without angina (5) CHF (congestive heart failure) Code(s): I50.9 - HEART FAILURE, UNSPECIFIED Qualifiers: Congestive heart failure type: systolic Congestive heart failure chronicity: acute on chronic Qualified Code(s): I50.23 - Acute on chronic systolic (congestive) heart failure (6) Diabetes Code(s): E11.9 - TYPE 2 DIABETES MELLITUS WITHOUT COMPLICATIONS Qualifiers: Diabetes mellitus complication status: with other specified complication (7) CKD (chronic kidney disease) Code(s): N18.9 - CHRONIC KIDNEY DISEASE, UNSPECIFIED Qualifiers: Chronic kidney disease stage: stage 3 (moderate) Qualified Code(s): N18.3 - Chronic kidney disease, stage 3 (moderate) Assessment/Plan Current Medications Generic Name Dose Route Start Last Admin Trade Name Freq PRN Reason Stop Dose Admin Acetaminophen 650 mg 12/19/16 20:28 12/21/16 21:05 Tylenol - PO 650 mg Q6H PRN Administration FEVER OR PAIN Amino Acids 30 ml 12/21/16 08:00 12/22/16 09:43 Prosource No Carb Liquid Pkt PO 30 ml BID@0800,1730 JONAS Administration Arformoterol Tartrate 1 amp 12/21/16 11:45 12/22/16 10:30 Brovana (Restricted To Pulmonology/Resp) - NEB 1 amp BID JONAS Administration Ascorbic Acid 250 mg 12/20/16 22:00 12/22/16 09:49 Vitamin C - PO 250 mg BID JONAS Administration Aspirin 81 mg 12/17/16 10:00 12/22/16 09:44 Ecotrin - PO 81 mg DAILY JONAS Administration Bacitracin 1 applic 12/19/16 11:45 12/22/16 09:45 Bacitracin - TP 1 applic DAILY JONAS Administration Clopidogrel Bisulfate 75 mg 12/17/16 10:00 12/22/16 09:44 Plavix - PO 75 mg DAILY JONAS Administration Collagenase 1 applic 12/17/16 10:00 12/22/16 09:45 Santyl - TP Not Given DAILY JONAS Furosemide 40 mg 12/16/16 17:00 12/22/16 09:44 Lasix Injection - IVPB 40 mg DAILY JONAS Administration Guaifenesin 10 ml 12/21/16 11:39 Robitussin Dm - PO Q6H PRN COUGH Piperacillin Sod/Tazobactam Sod 50 mls @ 100 mls/hr 12/16/16 18:00 12/22/16 09: 45 Zosyn 3.375gm Ivpb (Pre-Docked) IVPB 100 mls/hr Q8H-IV JONAS Administration Protocol Insulin Aspart 1 vial 12/16/16 22:00 12/22/16 07:27 Novolog Vial Sliding Scale - SQ 8 units ACHS JONAS Administration Protocol Insulin Detemir 35 units 12/20/16 12:46 12/22/16 07:27 Levemir Vial SQ 35 units AM JONAS Administration Insulin Detemir 15 units 12/21/16 22:00 12/21/16 22:14 Levemir Vial SQ 15 units HS JONAS Administration Lidocaine/Aluminum/Magnesium/Simeth 5 ml 12/21/16 12:00 12/22/16 07:27 Magic Mouthwash *Sjr Formula* - MM Not Given Q6HPO JONAS Magnesium Hydroxide 30 ml 12/19/16 20:34 12/19/16 22:08 Milk Of Magnesia - PO 30 ml HS PRN Administration CONSTIPATION Methylprednisolone Sodium Succinate 40 mg 12/21/16 11:45 12/22/16 09:44 Solu-Medrol - IVPB 40 mg Q6H-IV JONAS Administration Metoprolol Succinate 12.5 mg 12/22/16 10:00 12/22/16 09:44 Toprol Xl - PO 12.5 mg DAILY JONAS Administration Multivitamins/Minerals/Vitamin C 1 tab 12/21/16 10:00 12/22/16 09:44 Tab-A-Vit - PO 1 tab DAILY JONAS Administration Pantoprazole Sodium 40 mg 12/16/16 17:00 12/22/16 09:44 Protonix - PO 40 mg DAILY JONAS Administration Silver Sulfadiazine 1 applic 12/20/16 22:00 12/22/16 09:44 Silvadene - TP 1 applic BID JONAS Administration Tamsulosin HCl 0.4 mg 12/17/16 08:30 12/22/16 09:43 Flomax - PO 0.4 mg DAILY@0830 JONAS Administration Zinc Sulfate 220 mg 12/21/16 10:00 12/22/16 09:44 Orazinc - PO 220 mg DAILY JONAS Administration Impression 1. CKD 2. hx CVA 3. CAD 4. DM 5. BPH 6. chol 7. PVD 8. s/p angio of the right leg with stenting 9. PNA 10. dyspnea 11. lactic acidosis Plan - no new labs - cont current meds - cont oxygen and monitor pulse ox - pulmonary follow up - titrate down steroids as tolerated - pt refused bloodwork this morning - discussed plan with pt and Dr Wilson
--- NOTE | 2016-12-22 12:55 | CONSULT ---
Admitting History and Physical - Primary Care Physician PCP: Nivia Dailey - Admission History of Present Illness: EMR 12/16/16 11:49 "The patient is an 81-year-old man with a significant past medical history of diabetes mellitus, coronary artery disease status post CABG, benign prostate hyperplasia who was recently admitted at [facility] in July for Pneumonia, now in [facility] for physical therapy who presents to the emergency department via EMS for further evaluation of respiratory distress this morning. Patient was found to be hypoxic, sating to the low 80s on room air. EMS was activated, En route, patient was given Duo-Neb and Decadron treatments without much relief. Upon ER arrival, patient was noted to be afebrile (99.1), hypoxic, to the 60s, tachypneic to a respiratory rate of 30 and hypotensive to 97/39. As per patient's , the patient has been short of breath since his pneumonia diagnosis back in July, however he has been increasingly short of breath for the past few days with associated generalized weakness that has not allowed him to get out of bed or undergo physical therapy. Patient has noted that he sleep better in an upright position , as he is unable to lie flat without getting short of breath. He also reports endorsing an intermittent productive cough with thick dark sputum. No fever. No chest pain, lightheadedness, dizziness, palpitations, abdominal pain, nausea, vomiting. No urinary symptoms." Persistent Pneumonia.Cough. Temp spike, CHF bilateral upper lobe infiltrates Leukocytosis Azotemia R foot ulcer Referred for swallowing evaluation, r/o PNA. Selected Entries 12/19/16 12/19/16 12/19/16 02:49 06:00 10:00 Breakfast Lunch Supper Temperature 97.7 F 99.5 F 98 F 12/19/16 12/19/16 12/19/16 16:15 18:00 20:30 Breakfast Lunch Supper 50% Temperature 99.5 F 98.8 F 101.4 F H 12/20/16 12/20/16 12/20/16 02:11 05:39 10:00 Breakfast Lunch Supper Temperature 98.8 F 98.4 F 98 F 12/20/16 12/20/16 12/20/16 11:24 16:04 17:00 Breakfast 50% 50% Lunch 25% Supper Temperature 100.6 F H 99.8 F H 12/20/16 12/21/16 12/21/16 22:00 02:32 05:25 Breakfast Lunch Supper Temperature 97.8 F 97.5 F L 101.1 F H 12/21/16 12/21/16 12/21/16 10:00 15:40 17:00 Breakfast 50% Lunch Supper Temperature 98.5 F 97.9 F 98.2 F 12/21/16 12/21/16 12/22/16 22:00 23:19 02:37 Breakfast Lunch Supper 50% Temperature 99.3 F 98.5 F 12/22/16 06:00 Breakfast Lunch Supper Temperature 97.8 F Laboratory Tests 12/18/16 12/21/16 05:40 05:35 WBC 11.7 H 12.7 H History Source: Patient, Family Member, Transfer Record Limitations to Obtaining History: No Limitations - Past Medical History [employer]: Yes: CVA, Syncope Cardiovascular: Yes: CAD, Other (CABG/PCI STENT 2) Gastrointestinal: Yes: Other Renal/: Yes: BPH, UTI Endocrine: Yes: Diabetes Mellitus - Past Surgical History Past Surgical History: Yes: CABG, TURP - Smoking History Smoking history: Never smoked Have you smoked in the past 12 months: No - Alcohol/Substance Use Hx Alcohol Use: No History of Substance Use: reports: None - Social History ADL: Independent History of Recent Travel: No History - Admission Reason For Visit: PNEUMONIA - Diagnostics X-ray: Report Reviewed - General Mental Status: Alert and Oriented, Awake and Alert, Able to Follow Commands Attention: Intact Ability to Follow Directions: Excellent Head/Neck Control: WFL - Hearing Hearing: Normal Hearing Aide: No With Patient: No Speech Evaluation - Communication Primary Language: BENGALI Communication: Yes: Within Normal Limits Oral Expression Ability: Yes: No Impairment - Speech Production Able to Make Needs Known: Yes: WNL Intelligibility: Yes: WNL - Speech Characteristics Voice Loudness: Mildly Soft/Quiet Voice Pitch: Yes: Normal Voice Phonatory-based Quality: Yes: Normal, Dysphonia (mild, has cough) Speech Pattern: Normal Speech Clarity: < 100% Nasal Resonance: Normal Articulation: Yes: Precise Rate of Speech: Intact - Language/Auditory Comprehension Follows: Yes: 1 Stage Simple Commands - Language/Verbal Expression Able to Respond to Simple Queries: Yes: WNL Able to Communicate Wants and Needs: Yes: WNL Functional Communication Status: Yes: WNL - Swallow Evaluation/Bedside Assessment Current Nutritional Intake: Regular, Thin Liquids Oral Secretions: Yes: WFL Dentition: Yes: Edentulous Facial Symmetry at Rest: Symmetrical Facial Symmetry on Retraction: Symmetrical Facial Movement: Controlled Sensation: Normal Against Resistance Opening: Normal Against Resistance Closing: Normal Pucker Lips: Normal Smile: Normal Lingual Movement: Normal Lingual Speed of Movement: Normal Lingual Movement Strgth Against Opposition: Normal Lingual Movement Characteristics: Normal Velopharyngeal Movement: Normal Laryngeal Elevation: WFL Laryngeal Movement: Able to Palpate Rate of Intake: WFL Bolus Size: WFL Labial Seal: WFL Chewing: Impaired Oral Prep Time: WFL A-P Transit: WFL Pocketing: None Timing of Swallow: WFL Coughing/Throat Clear: No Change in Voice: No Recommendations - Speech Evaluation, Impression/Plan Impression: Brisk swallow with no overt symptoms of dysphagia. Edentulous,eats very soft chopped foods at home. - Dysphagia Impressions/Plan Dysphagia Impressions: Mild Impairment *Silent aspiration: cannot be R/O at bedside - Recommendations Diet Consistency: Other (Chopped diet, soft, Menu selection if possible) Medication Administration: Whole with water Liquids: Thin Liquids Supplement: Other (as indicated)
--- NOTE | 2016-12-22 15:53 | PN ---
Progress Note, Physician Chief Complaint: Cardiology follow up On NRB mask. Telem NSR History of Present Illness: 81 year old man history of NIDDM, CAD s/p CABG at [facility], BPH, CKD, pneumonia, chronic systolic CHF who was recently admitted at [facility] for PVD and leg ulcer s/p angio complicated by ATN resolved now admitted with sob and hypoxia with volume overload and PNA. No chest pain. # pillow orthopnea. no edema. - Current Medication List Current Medications: Active Medications Acetaminophen (Tylenol -) 650 mg PO Q6H PRN PRN Reason: FEVER OR PAIN Last Admin: 12/21/16 21:05 Dose: 650 mg Amino Acids (Prosource No Carb Liquid Pkt) 30 ml PO BID@0800,1730 [facility] Last Admin: 12/22/16 09:43 Dose: 30 ml Arformoterol Tartrate (Brovana (Restricted To Pulmonology/Resp) -) 1 amp NEB BID [facility] Last Admin: 12/22/16 10:30 Dose: 1 amp Ascorbic Acid (Vitamin C -) 250 mg PO BID [facility] Last Admin: 12/22/16 09:49 Dose: 250 mg Aspirin (Ecotrin -) 81 mg PO DAILY [facility] Last Admin: 12/22/16 09:44 Dose: 81 mg Bacitracin (Bacitracin -) 1 applic TP DAILY [facility] Last Admin: 12/22/16 09:45 Dose: 1 applic Clopidogrel Bisulfate (Plavix -) 75 mg PO DAILY [facility] Last Admin: 12/22/16 09:44 Dose: 75 mg Collagenase (Santyl -) 1 applic TP DAILY [facility] Last Admin: 12/22/16 09:45 Dose: Not Given Furosemide (Lasix Injection -) 40 mg IVPB DAILY [facility] Last Admin: 12/22/16 09:44 Dose: 40 mg Guaifenesin (Robitussin Dm -) 10 ml PO Q6H PRN PRN Reason: COUGH Piperacillin Sod/Tazobactam Sod (Zosyn 3.375gm Ivpb (Pre-Docked)) 50 mls @ 100 mls/hr IVPB Q8H-IV JONAS PRN Reason: Protocol Last Admin: 12/22/16 09:45 Dose: 100 mls/hr Insulin Aspart (Novolog Vial Sliding Scale -) 1 vial SQ ACHS JONAS PRN Reason: Protocol Last Admin: 12/22/16 12:30 Dose: 12 units Insulin Detemir (Levemir Vial) 35 units SQ AM [facility] Last Admin: 12/22/16 07:27 Dose: 35 units Insulin Detemir (Levemir Vial) 15 units SQ HS [facility] Last Admin: 12/21/16 22:14 Dose: 15 units Lidocaine/Aluminum/Magnesium/Simeth (Magic Mouthwash *Sjr Formula* -) 5 ml MM Q6HPO [facility] Last Admin: 12/22/16 13:49 Dose: 5 mm Magnesium Hydroxide (Milk Of Magnesia -) 30 ml PO HS PRN PRN Reason: CONSTIPATION Last Admin: 12/19/16 22:08 Dose: 30 ml Methylprednisolone Sodium Succinate (Solu-Medrol -) 40 mg IVPB Q6H-IV [facility] Last Admin: 12/22/16 09:44 Dose: 40 mg Metoprolol Succinate (Toprol Xl -) 12.5 mg PO DAILY [facility] Last Admin: 12/22/16 09:44 Dose: 12.5 mg Multivitamins/Minerals/Vitamin C (Tab-A-Vit -) 1 tab PO DAILY [facility] Last Admin: 12/22/16 09:44 Dose: 1 tab Pantoprazole Sodium (Protonix -) 40 mg PO DAILY [facility] Last Admin: 12/22/16 09:44 Dose: 40 mg Silver Sulfadiazine (Silvadene -) 1 applic TP BID [facility] Last Admin: 12/22/16 09:44 Dose: 1 applic Tamsulosin HCl (Flomax -) 0.4 mg PO DAILY@0830 [facility] Last Admin: 12/22/16 09:43 Dose: 0.4 mg Zinc Sulfate (Orazinc -) 220 mg PO DAILY [facility] Last Admin: 12/22/16 09:44 Dose: 220 mg - Objective Vital Signs: Vital Signs Temperature 97.8 F 12/22/16 06:00 Pulse Rate 67 12/22/16 10:41 Respiratory Rate 20 12/22/16 06:00 Blood Pressure 154/80 12/22/16 06:00 O2 Sat by Pulse Oximetry (%) 90 L 12/22/16 14:29 Constitutional: Yes: Well Nourished Eyes: Yes: WNL HENT: Yes: WNL Neck: Yes: WNL Cardiovascular: Yes: Regular Rate and Rhythm Respiratory: Yes: On Venti-Mask, Rhonchi Gastrointestinal: Yes: Normal Bowel Sounds Edema: No Labs: CBC, BMP 12/21/16 05:35 12/21/16 05:35 INR, PTT INR 1.12 (0.82-1.09) 12/16/16 12:00 Problem List - Problems (1) Acute hypoxemic respiratory failure Assessment/Plan: Pneumonia with acute on chronic systolic heart failure. Diuresing with reduced BNP level. continue to adjust cardiac therapies increase Metoprolol XL 25mg QD Hold for SBP <100mmHg Attempt to lower O2 to Venti mask. Continue BiPAP Code(s): J96.01 - ACUTE RESPIRATORY FAILURE WITH HYPOXIA (2) CAD (coronary artery disease) Assessment/Plan: Stable CAD. Heart failure controlled. His hypoxia likely more from infection and lung disease Code(s): I25.10 - ATHSCL HEART DISEASE OF [place] CORONARY ARTERY W/O ANG PCTRS Qualifiers: Associated angina: without angina
--- NOTE | 2016-12-22 16:36 | EKG ---
Test Reason : Blood Pressure : / mmHG Vent. 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
--- NOTE | 2016-12-22 17:48 | PN ---
Progress Note (short form) - Note Progress Note: PULMONARY CHART REVIEWED 93% SPO2 ON 100% NRB MASK FAMILY PRESENT APPEARS DYSPNEIC AT REST ANICTERIC/EDENTULOUS SCATTERED CRACKLES S1S2 RSR BS+ DIMINISHED LOWER EXT EDEMA CT/MEDS/NOTES/MICRO REVIEWED Problem List - Problems (1) Acute hypoxemic respiratory failure Code(s): J96.01 - ACUTE RESPIRATORY FAILURE WITH HYPOXIA - Problems (1) CKD (chronic kidney disease) Code(s): N18.9 - CHRONIC KIDNEY DISEASE, UNSPECIFIED (2) PAD (peripheral artery disease) Code(s): I73.9 - PERIPHERAL VASCULAR DISEASE, UNSPECIFIED (3) Pneumonia Code(s): J18.9 - PNEUMONIA, UNSPECIFIED ORGANISM Qualifiers: Pneumonia type: due to unspecified organism Laterality: bilateral Lung location: unspecified part of lung Qualified Code(s): J18.9 - Pneumonia, unspecified organism (4) Respiratory distress Code(s): R06.00 - DYSPNEA, UNSPECIFIED (5) Microcytic anemia Code(s): D50.9 - IRON DEFICIENCY ANEMIA, UNSPECIFIED (6) BPH (benign prostatic hyperplasia) Code(s): N40.0 - BENIGN PROSTATIC HYPERPLASIA WITHOUT LOWER URINRY TRACT SYMP (7) CAD (coronary artery disease) Code(s): I25.10 - ATHSCL HEART DISEASE OF [place] CORONARY ARTERY W/O ANG PCTRS Qualifiers: Associated angina: with unspecified angina (8) CHF (congestive heart failure) Code(s): I50.9 - HEART FAILURE, UNSPECIFIED Qualifiers: Congestive heart failure type: systolic Congestive heart failure chronicity: acute on chronic Qualified Code(s): I50.23 - Acute on chronic systolic (congestive) heart failure (9) Diabetes Code(s): E11.9 - TYPE 2 DIABETES MELLITUS WITHOUT COMPLICATIONS Qualifiers: Diabetes mellitus complication status: with other specified complication Lasix ABX per ID Daily weight I&O BD TX solumedrol Must maintain O2 sat greater than 90% Overall prognosis is poor Deandra KRUGER MD
[2016-12-23] MEDS: MAG HYDROX/ALH/SMC/DPHA/LIDO 240 ML MOUTHWASH MM SCH ×4 (01:30→17:16)
[2016-12-23] MEDS: PIPERACILLIN/TAZOB 3.375 GM 50 ML IVPB SCH ×3 (01:30→17:16)
[2016-12-23] MEDS: methylPREDNISolone NA SUCC 40 MG/1 ML VIAL IVPB SCH ×3 (03:24→17:16)
[2016-12-23] MEDS: INSULIN SLIDING SCALE (NOVOLOG) 1 VIAL SQ SCH ×4 (06:22→21:36)
[2016-12-23] MEDS: INSULIN DETEMIR 100 UNITS/ML MDV SQ SCH ×2 (06:24→21:36)
[2016-12-23 07:49] LABS: CALCIUM 8.4 mg/dL (8.5-10.1); COCKROFT - GAULT 27.88; CREATININE 1.9 mg/dL (0.7-1.3)
[2016-12-23] MEDS ORDERED: PT OWN MED DRAWER 7, Y5N ONE ×3 (08:50→18:52)
[2016-12-23] MEDS: AMINO ACIDS/PROTEIN HYDROLYS 30 ML LIQUID.PKT PO SCH ×2 (08:52→16:51)
[2016-12-23] MEDS: TAMSULOSIN HCL 0.4 MG CAP.ER.24H (FP) PO SCH (08:52)
[2016-12-23] MEDS: FUROSEMIDE 40 MG/4 ML INJECTABLE VIAL IVPB SCH (09:20)
[2016-12-23] MEDS: METOPROLOL SUCCINATE 25 MG TAB.SR.24H (FP) PO SCH (09:21)
[2016-12-23] MEDS: ASPIRIN COATED 81 MG TABLET.EC PO SCH (09:21)
[2016-12-23] MEDS: PANTOPRAZOLE 40 MG TABLET (FP) PO SCH (09:21)
[2016-12-23] MEDS: CLOPIDOGREL BISULFATE 75 MG TABLET (FP) PO SCH (09:21)
[2016-12-23] MEDS: ZINC SULFATE 220 MG CAPSULE (FP) PO SCH (09:21)
[2016-12-23] MEDS: MULTIVITAMINS (DAILY MVI) TABLET (FP) PO SCH (09:21)
[2016-12-23] MEDS: ASCORBIC ACID 250 MG TABLET (FP) PO SCH ×2 (09:21→23:39)
[2016-12-23] MEDS: ARFORMOTEROL TARTRATE 15 MCG/2 ML VIAL NEB SCH ×2 (10:40→23:05)
--- NOTE | 2016-12-23 11:09 | PN ---
Progress Note, Physician Chief Complaint: SITTING IN CHAIR COMFORTABLE 02 SUPPORT - Current Medication List Current Medications: Active Medications Acetaminophen (Tylenol -) 650 mg PO Q6H PRN PRN Reason: FEVER OR PAIN Last Admin: 12/21/16 21:05 Dose: 650 mg Amino Acids (Prosource No Carb Liquid Pkt) 30 ml PO BID@0800,1730 [facility] Last Admin: 12/23/16 08:52 Dose: 30 ml Arformoterol Tartrate (Brovana (Restricted To Pulmonology/Resp) -) 1 amp NEB BID [facility] Last Admin: 12/22/16 22:36 Dose: 1 amp Ascorbic Acid (Vitamin C -) 250 mg PO BID [facility] Last Admin: 12/23/16 09:21 Dose: 250 mg Aspirin (Ecotrin -) 81 mg PO DAILY [facility] Last Admin: 12/23/16 09:21 Dose: 81 mg Bacitracin (Bacitracin -) 1 applic TP DAILY [facility] Last Admin: 12/22/16 09:45 Dose: 1 applic Clopidogrel Bisulfate (Plavix -) 75 mg PO DAILY [facility] Last Admin: 12/23/16 09:21 Dose: 75 mg Collagenase (Santyl -) 1 applic TP DAILY [facility] Last Admin: 12/22/16 09:45 Dose: Not Given Furosemide (Lasix Injection -) 40 mg IVPB DAILY [facility] Last Admin: 12/23/16 09:20 Dose: 40 mg Guaifenesin (Robitussin Dm -) 10 ml PO Q6H PRN PRN Reason: COUGH Piperacillin Sod/Tazobactam Sod (Zosyn 3.375gm Ivpb (Pre-Docked)) 50 mls @ 100 mls/hr IVPB Q8H-IV JONAS PRN Reason: Protocol Last Admin: 12/23/16 10:19 Dose: 100 mls/hr Potassium Chloride (Potassium Chloride 10 Meq Premix Ivpb -) 100 mls @ 100 mls/ hr IVPB Q60M [facility] Stop: 12/23/16 13:29 Insulin Aspart (Novolog Vial Sliding Scale -) 1 vial SQ ACHS [facility] PRN Reason: Protocol Last Admin: 12/23/16 06:22 Dose: 4 units Insulin Detemir (Levemir Vial) 35 units SQ AM [facility] Last Admin: 12/23/16 06:24 Dose: 35 units Insulin Detemir (Levemir Vial) 15 units SQ HS [facility] Last Admin: 12/22/16 22:28 Dose: 15 units Lidocaine/Aluminum/Magnesium/Simeth (Magic Mouthwash *Sjr Formula* -) 5 ml MM Q6HPO [facility] Last Admin: 12/23/16 06:18 Dose: Not Given Magnesium Hydroxide (Milk Of Magnesia -) 30 ml PO HS PRN PRN Reason: CONSTIPATION Last Admin: 12/19/16 22:08 Dose: 30 ml Methylprednisolone Sodium Succinate (Solu-Medrol -) 40 mg IVPB Q6H-IV [facility] Last Admin: 12/23/16 08:52 Dose: 40 mg Metoprolol Succinate (Toprol Xl -) 25 mg PO DAILY [facility] Last Admin: 12/23/16 09:21 Dose: 25 mg Multivitamins/Minerals/Vitamin C (Tab-A-Vit -) 1 tab PO DAILY [facility] Last Admin: 12/23/16 09:21 Dose: 1 tab Pantoprazole Sodium (Protonix -) 40 mg PO DAILY [facility] Last Admin: 12/23/16 09:21 Dose: 40 mg Potassium Chloride (K-Dur -) 20 meq PO ONCE ONE Stop: 12/23/16 11:31 Silver Sulfadiazine (Silvadene -) 1 applic TP BID [facility] Last Admin: 12/22/16 22:29 Dose: 1 applic Tamsulosin HCl (Flomax -) 0.4 mg PO DAILY@0830 [facility] Last Admin: 12/23/16 08:52 Dose: 0.4 mg Zinc Sulfate (Orazinc -) 220 mg PO DAILY [facility] Last Admin: 12/23/16 09:21 Dose: 220 mg - Objective Vital Signs: Vital Signs Temperature 98 F 12/23/16 10:00 Pulse Rate 68 12/23/16 10:00 Respiratory Rate 18 12/23/16 10:00 Blood Pressure 118/60 12/23/16 10:00 O2 Sat by Pulse Oximetry (%) 96 12/22/16 21:00 Constitutional: Yes: Mild Distress Eyes: Yes: WNL HENT: Yes: WNL Neck: Yes: WNL Cardiovascular: Yes: WNL Respiratory: Yes: Cough, On Venti-Mask, SOB Gastrointestinal: Yes: WNL Genitourinary: Yes: Incontinence Musculoskeletal: Yes: Muscle Weakness Extremities: Yes: WNL Edema: No Peripheral Pulses WNL: Yes Integumentary: Yes: WNL Wound/Incision: Yes: Clean/Dry Neurological: Yes: Other ...Motor Strength: LLE, RLE Psychiatric: Yes: Other Labs: CBC, BMP 12/21/16 05:35 12/23/16 05:35 INR, PTT INR 1.12 (0.82-1.09) 12/16/16 12:00 Problem List - Problems (1) Pneumonia Code(s): J18.9 - PNEUMONIA, UNSPECIFIED ORGANISM Qualifiers: Pneumonia type: due to unspecified organism Laterality: bilateral Lung location: unspecified part of lung Qualified Code(s): J18.9 - Pneumonia, unspecified organism (2) Microcytic anemia Code(s): D50.9 - IRON DEFICIENCY ANEMIA, UNSPECIFIED (3) UTI (urinary tract infection) Code(s): N39.0 - URINARY TRACT INFECTION, SITE NOT SPECIFIED Qualifiers: Urinary tract infection type: acute cystitis (4) BPH (benign prostatic hyperplasia) Code(s): N40.0 - BENIGN PROSTATIC HYPERPLASIA WITHOUT LOWER URINRY TRACT SYMP (5) CAD (coronary artery disease) Code(s): I25.10 - ATHSCL HEART DISEASE OF [place] CORONARY ARTERY W/O ANG PCTRS Qualifiers: Associated angina: without angina (6) CHF (congestive heart failure) Code(s): I50.9 - HEART FAILURE, UNSPECIFIED Qualifiers: Congestive heart failure type: systolic Congestive heart failure chronicity: acute on chronic Qualified Code(s): I50.23 - Acute on chronic systolic (congestive) heart failure (7) Diabetes Code(s): E11.9 - TYPE 2 DIABETES MELLITUS WITHOUT COMPLICATIONS Qualifiers: Diabetes mellitus complication status: with other specified complication (8) Respiratory distress Code(s): R06.00 - DYSPNEA, UNSPECIFIED (9) CKD (chronic kidney disease) Code(s): N18.9 - CHRONIC KIDNEY DISEASE, UNSPECIFIED Qualifiers: Chronic kidney disease stage: stage 3 (moderate) Qualified Code(s): N18.3 - Chronic kidney disease, stage 3 (moderate) Assessment/Plan CONTINUE LASIX IV REPLETE KCL IV AND PO 02 SUPPORT INCENTIVE SPIROMETRY IV ABX PULM AND CARDIO F/U APPRECIATED RENAL EVAL OOB TO CHAIR PT [facility] WHEN READY LIKELY MONDAY NEXT WEEK
--- NOTE | 2016-12-23 11:20 | PN ---
Progress Note, Physician History of Present Illness: pulmonary alert,feeling better,oob-chair,less dyspneic - Current Medication List Current Medications: Active Medications Acetaminophen (Tylenol -) 650 mg PO Q6H PRN PRN Reason: FEVER OR PAIN Last Admin: 12/21/16 21:05 Dose: 650 mg Amino Acids (Prosource No Carb Liquid Pkt) 30 ml PO BID@0800,1730 [facility] Last Admin: 12/23/16 08:52 Dose: 30 ml Arformoterol Tartrate (Brovana (Restricted To Pulmonology/Resp) -) 1 amp NEB BID [facility] Last Admin: 12/22/16 22:36 Dose: 1 amp Ascorbic Acid (Vitamin C -) 250 mg PO BID [facility] Last Admin: 12/23/16 09:21 Dose: 250 mg Aspirin (Ecotrin -) 81 mg PO DAILY [facility] Last Admin: 12/23/16 09:21 Dose: 81 mg Bacitracin (Bacitracin -) 1 applic TP DAILY [facility] Last Admin: 12/22/16 09:45 Dose: 1 applic Clopidogrel Bisulfate (Plavix -) 75 mg PO DAILY [facility] Last Admin: 12/23/16 09:21 Dose: 75 mg Collagenase (Santyl -) 1 applic TP DAILY [facility] Last Admin: 12/22/16 09:45 Dose: Not Given Furosemide (Lasix Injection -) 40 mg IVPB DAILY [facility] Last Admin: 12/23/16 09:20 Dose: 40 mg Guaifenesin (Robitussin Dm -) 10 ml PO Q6H PRN PRN Reason: COUGH Piperacillin Sod/Tazobactam Sod (Zosyn 3.375gm Ivpb (Pre-Docked)) 50 mls @ 100 mls/hr IVPB Q8H-IV JONAS PRN Reason: Protocol Last Admin: 12/23/16 10:19 Dose: 100 mls/hr Potassium Chloride (Potassium Chloride 10 Meq Premix Ivpb -) 100 mls @ 100 mls/ hr IVPB Q60M [facility] Stop: 12/23/16 13:29 Insulin Aspart (Novolog Vial Sliding Scale -) 1 vial SQ ACHS [facility] PRN Reason: Protocol Last Admin: 12/23/16 06:22 Dose: 4 units Insulin Detemir (Levemir Vial) 35 units SQ AM [facility] Last Admin: 12/23/16 06:24 Dose: 35 units Insulin Detemir (Levemir Vial) 15 units SQ HS [facility] Last Admin: 12/22/16 22:28 Dose: 15 units Lidocaine/Aluminum/Magnesium/Simeth (Magic Mouthwash *Sjr Formula* -) 5 ml MM Q6HPO [facility] Last Admin: 12/23/16 06:18 Dose: Not Given Magnesium Hydroxide (Milk Of Magnesia -) 30 ml PO HS PRN PRN Reason: CONSTIPATION Last Admin: 12/19/16 22:08 Dose: 30 ml Methylprednisolone Sodium Succinate (Solu-Medrol -) 40 mg IVPB Q6H-IV [facility] Last Admin: 12/23/16 08:52 Dose: 40 mg Metoprolol Succinate (Toprol Xl -) 25 mg PO DAILY [facility] Last Admin: 12/23/16 09:21 Dose: 25 mg Multivitamins/Minerals/Vitamin C (Tab-A-Vit -) 1 tab PO DAILY [facility] Last Admin: 12/23/16 09:21 Dose: 1 tab Pantoprazole Sodium (Protonix -) 40 mg PO DAILY [facility] Last Admin: 12/23/16 09:21 Dose: 40 mg Potassium Chloride (K-Dur -) 20 meq PO ONCE ONE Stop: 12/23/16 11:31 Silver Sulfadiazine (Silvadene -) 1 applic TP BID [facility] Last Admin: 12/22/16 22:29 Dose: 1 applic Tamsulosin HCl (Flomax -) 0.4 mg PO DAILY@0830 [facility] Last Admin: 12/23/16 08:52 Dose: 0.4 mg Zinc Sulfate (Orazinc -) 220 mg PO DAILY [facility] Last Admin: 12/23/16 09:21 Dose: 220 mg - Objective Vital Signs: Vital Signs Temperature 98 F 12/23/16 10:00 Pulse Rate 68 12/23/16 10:00 Respiratory Rate 18 12/23/16 10:00 Blood Pressure 118/60 12/23/16 10:00 O2 Sat by Pulse Oximetry (%) 96 12/22/16 21:00 Constitutional: Yes: Well Nourished, Calm Eyes: Yes: WNL HENT: Yes: WNL Cardiovascular: Yes: Pulse Irregular, S1, S2 Respiratory: Yes: Rales (christine crackles 1/3 up) Gastrointestinal: Yes: Normal Bowel Sounds, Soft Extremities: Yes: WNL Edema: No Labs: CBC, BMP 12/21/16 05:35 12/23/16 05:35 INR, PTT INR 1.12 (0.82-1.09) 12/16/16 12:00 Problem List - Problems (1) Acute hypoxemic respiratory failure Code(s): J96.01 - ACUTE RESPIRATORY FAILURE WITH HYPOXIA Assessment/Plan Problem List - Problems (1) CKD (chronic kidney disease) Code(s): N18.9 - CHRONIC KIDNEY DISEASE, UNSPECIFIED (2) PAD (peripheral artery disease) Code(s): I73.9 - PERIPHERAL VASCULAR DISEASE, UNSPECIFIED (3) Pneumonia Code(s): J18.9 - PNEUMONIA, UNSPECIFIED ORGANISM Qualifiers: Pneumonia type: due to unspecified organism Laterality: bilateral Lung location: unspecified part of lung Qualified Code(s): J18.9 - Pneumonia, unspecified organism (4) Respiratory distress Code(s): R06.00 - DYSPNEA, UNSPECIFIED (5) Microcytic anemia Code(s): D50.9 - IRON DEFICIENCY ANEMIA, UNSPECIFIED (6) BPH (benign prostatic hyperplasia) Code(s): N40.0 - BENIGN PROSTATIC HYPERPLASIA WITHOUT LOWER URINRY TRACT SYMP (7) CAD (coronary artery disease) Code(s): I25.10 - ATHSCL HEART DISEASE OF [place] CORONARY ARTERY W/O ANG PCTRS Qualifiers: Associated angina: with unspecified angina (8) CHF (congestive heart failure) Code(s): I50.9 - HEART FAILURE, UNSPECIFIED Qualifiers: Congestive heart failure type: systolic Congestive heart failure chronicity: acute on chronic Qualified Code(s): I50.23 - Acute on chronic systolic (congestive) heart failure (9) Diabetes Code(s): E11.9 - TYPE 2 DIABETES MELLITUS WITHOUT COMPLICATIONS Qualifiers: Diabetes mellitus complication status: with other specified complication 10 ACUTE HYPOXEMIC RESPIRATORY FAILURE I1. 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
[2016-12-23] MEDS: KCL 10 MEQ IVPB 100 ML IVPB SCH ×2 (11:23→13:57)
[2016-12-23] MEDS ORDERED: POTASSIUM CHLORIDE TABS 20 MEQ TABLET.ER (FP) PO ONE (11:30)
--- NOTE | 2016-12-23 12:45 | PN ---
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 No difficulty with thin liquid from a straw. Still requires supplemental o2 to maintain o2 saturtion above 90. Comfortable OOB in chair. Verbal. Oriented. Monitor PO tolerance/pulmonary status. Pending CXR t'mw. Silent aspiration can not be r/o at bedside. If aspiration suspected, MBS indicated.
[2016-12-23] MEDS: ACETAMINOPHEN 325 MG TABLET (FP) PO PRN ×2 (14:00→21:31)
--- NOTE | 2016-12-23 15:50 | PN ---
Progress Note, Physician History of Present Illness: Pt seen and examined at bedside. He is out of bed to chair. He still complains of shortness of breath. - Current Medication List Current Medications: Active Medications Acetaminophen (Tylenol -) 650 mg PO Q6H PRN PRN Reason: FEVER OR PAIN Last Admin: 12/23/16 14:00 Dose: 650 mg Amino Acids (Prosource No Carb Liquid Pkt) 30 ml PO BID@0800,1730 [facility] Last Admin: 12/23/16 08:52 Dose: 30 ml Arformoterol Tartrate (Brovana (Restricted To Pulmonology/Resp) -) 1 amp NEB BID [facility] Last Admin: 12/23/16 10:40 Dose: 1 amp Ascorbic Acid (Vitamin C -) 250 mg PO BID [facility] Last Admin: 12/23/16 09:21 Dose: 250 mg Aspirin (Ecotrin -) 81 mg PO DAILY [facility] Last Admin: 12/23/16 09:21 Dose: 81 mg Bacitracin (Bacitracin -) 1 applic TP DAILY [facility] Last Admin: 12/22/16 09:45 Dose: 1 applic Clopidogrel Bisulfate (Plavix -) 75 mg PO DAILY [facility] Last Admin: 12/23/16 09:21 Dose: 75 mg Collagenase (Santyl -) 1 applic TP DAILY [facility] Last Admin: 12/22/16 09:45 Dose: Not Given Furosemide (Lasix Injection -) 40 mg IVPB DAILY [facility] Last Admin: 12/23/16 09:20 Dose: 40 mg Guaifenesin (Robitussin Dm -) 10 ml PO Q6H PRN PRN Reason: COUGH Piperacillin Sod/Tazobactam Sod (Zosyn 3.375gm Ivpb (Pre-Docked)) 50 mls @ 100 mls/hr IVPB Q8H-IV JONAS PRN Reason: Protocol Last Admin: 12/23/16 10:19 Dose: 100 mls/hr Insulin Aspart (Novolog Vial Sliding Scale -) 1 vial SQ ACHS JONAS PRN Reason: Protocol Last Admin: 12/23/16 11:26 Dose: 8 units Insulin Detemir (Levemir Vial) 35 units SQ AM [facility] Last Admin: 12/23/16 06:24 Dose: 35 units Insulin Detemir (Levemir Vial) 15 units SQ HS [facility] Last Admin: 12/22/16 22:28 Dose: 15 units Lidocaine/Aluminum/Magnesium/Simeth (Magic Mouthwash *Sjr Formula* -) 5 ml MM Q6HPO [facility] Last Admin: 12/23/16 13:56 Dose: Not Given Magnesium Hydroxide (Milk Of Magnesia -) 30 ml PO HS PRN PRN Reason: CONSTIPATION Last Admin: 12/19/16 22:08 Dose: 30 ml Methylprednisolone Sodium Succinate (Solu-Medrol -) 40 mg IVPB Q8H-IV JONAS Metoprolol Succinate (Toprol Xl -) 25 mg PO DAILY [facility] Last Admin: 12/23/16 09:21 Dose: 25 mg Multivitamins/Minerals/Vitamin C (Tab-A-Vit -) 1 tab PO DAILY [facility] Last Admin: 12/23/16 09:21 Dose: 1 tab Pantoprazole Sodium (Protonix -) 40 mg PO DAILY [facility] Last Admin: 12/23/16 09:21 Dose: 40 mg Silver Sulfadiazine (Silvadene -) 1 applic TP BID [facility] Last Admin: 12/22/16 22:29 Dose: 1 applic Tamsulosin HCl (Flomax -) 0.4 mg PO DAILY@0830 [facility] Last Admin: 12/23/16 08:52 Dose: 0.4 mg Zinc Sulfate (Orazinc -) 220 mg PO DAILY [facility] Last Admin: 12/23/16 09:21 Dose: 220 mg - Objective Vital Signs: Vital Signs Temperature 97.6 F 12/23/16 14:33 Pulse Rate 66 12/23/16 14:33 Respiratory Rate 20 12/23/16 14:33 Blood Pressure 145/66 12/23/16 14:33 O2 Sat by Pulse Oximetry (%) 98 12/23/16 10:15 Constitutional: Yes: Calm Eyes: Yes: Conjunctiva Clear HENT: Yes: Atraumatic Neck: Yes: Supple Cardiovascular: Yes: S1, S2 Respiratory: Yes: On Venti-Mask Gastrointestinal: Yes: Normal Bowel Sounds, Soft Genitourinary: Yes: Incontinence Musculoskeletal: Yes: Muscle Weakness Edema: No Neurological: Yes: Oriented Psychiatric: Yes: Oriented Labs: CBC, BMP 12/21/16 05:35 12/23/16 05:35 INR, PTT INR 1.12 (0.82-1.09) 12/16/16 12:00 Problem List - Problems (1) Pneumonia Code(s): J18.9 - PNEUMONIA, UNSPECIFIED ORGANISM Qualifiers: Pneumonia type: due to unspecified organism Laterality: bilateral Lung location: unspecified part of lung Qualified Code(s): J18.9 - Pneumonia, unspecified organism (2) Respiratory distress Code(s): R06.00 - DYSPNEA, UNSPECIFIED (3) BPH (benign prostatic hyperplasia) Code(s): N40.0 - BENIGN PROSTATIC HYPERPLASIA WITHOUT LOWER URINRY TRACT SYMP (4) CAD (coronary artery disease) Code(s): I25.10 - ATHSCL HEART DISEASE OF [place] CORONARY ARTERY W/O ANG PCTRS Qualifiers: Associated angina: without angina (5) CHF (congestive heart failure) Code(s): I50.9 - HEART FAILURE, UNSPECIFIED Qualifiers: Congestive heart failure type: systolic Congestive heart failure chronicity: acute on chronic Qualified Code(s): I50.23 - Acute on chronic systolic (congestive) heart failure (6) Diabetes Code(s): E11.9 - TYPE 2 DIABETES MELLITUS WITHOUT COMPLICATIONS Qualifiers: Diabetes mellitus complication status: with other specified complication (7) CKD (chronic kidney disease) Code(s): N18.9 - CHRONIC KIDNEY DISEASE, UNSPECIFIED Qualifiers: Chronic kidney disease stage: stage 3 (moderate) Qualified Code(s): N18.3 - Chronic kidney disease, stage 3 (moderate) Assessment/Plan Current Medications Generic Name Dose Route Start Last Admin Trade Name Freq PRN Reason Stop Dose Admin Acetaminophen 650 mg 12/19/16 20:28 12/23/16 14:00 Tylenol - PO 650 mg Q6H PRN Administration FEVER OR PAIN Amino Acids 30 ml 12/21/16 08:00 12/23/16 08:52 Prosource No Carb Liquid Pkt PO 30 ml BID@0800,1730 JONAS Administration Arformoterol Tartrate 1 amp 12/21/16 11:45 12/23/16 10:40 Brovana (Restricted To Pulmonology/Resp) - NEB 1 amp BID JONAS Administration Ascorbic Acid 250 mg 12/20/16 22:00 12/23/16 09:21 Vitamin C - PO 250 mg BID JONAS Administration Aspirin 81 mg 12/17/16 10:00 12/23/16 09:21 Ecotrin - PO 81 mg DAILY JONAS Administration Bacitracin 1 applic 12/19/16 11:45 12/22/16 09:45 Bacitracin - TP 1 applic DAILY JONAS Administration Clopidogrel Bisulfate 75 mg 12/17/16 10:00 12/23/16 09:21 Plavix - PO 75 mg DAILY JONAS Administration Collagenase 1 applic 12/17/16 10:00 12/22/16 09:45 Santyl - TP Not Given DAILY JONAS Furosemide 40 mg 12/16/16 17:00 12/23/16 09:20 Lasix Injection - IVPB 40 mg DAILY JONAS Administration Guaifenesin 10 ml 12/21/16 11:39 Robitussin Dm - PO Q6H PRN COUGH Piperacillin Sod/Tazobactam Sod 50 mls @ 100 mls/hr 12/16/16 18:00 12/23/16 10: 19 Zosyn 3.375gm Ivpb (Pre-Docked) IVPB 100 mls/hr Q8H-IV JONAS Administration Protocol Insulin Aspart 1 vial 12/16/16 22:00 12/23/16 11:26 Novolog Vial Sliding Scale - SQ 8 units ACHS JONAS Administration Protocol Insulin Detemir 35 units 12/20/16 12:46 12/23/16 06:24 Levemir Vial SQ 35 units AM JONAS Administration Insulin Detemir 15 units 12/21/16 22:00 12/22/16 22:28 Levemir Vial SQ 15 units HS JONAS Administration Lidocaine/Aluminum/Magnesium/Simeth 5 ml 12/21/16 12:00 12/23/16 13:56 Magic Mouthwash *Sjr Formula* - MM Not Given Q6HPO JONAS Magnesium Hydroxide 30 ml 12/19/16 20:34 12/19/16 22:08 Milk Of Magnesia - PO 30 ml HS PRN Administration CONSTIPATION Methylprednisolone Sodium Succinate 40 mg 12/23/16 18:00 Solu-Medrol - IVPB Q8H-IV JONAS Metoprolol Succinate 25 mg 12/23/16 10:00 12/23/16 09:21 Toprol Xl - PO 25 mg DAILY JONAS Administration Multivitamins/Minerals/Vitamin C 1 tab 12/21/16 10:00 12/23/16 09:21 Tab-A-Vit - PO 1 tab DAILY JONAS Administration Pantoprazole Sodium 40 mg 12/16/16 17:00 12/23/16 09:21 Protonix - PO 40 mg DAILY JONAS Administration Silver Sulfadiazine 1 applic 12/20/16 22:00 12/22/16 22:29 Silvadene - TP 1 applic BID JONAS Administration Tamsulosin HCl 0.4 mg 12/17/16 08:30 12/23/16 08:52 Flomax - PO 0.4 mg DAILY@0830 JONAS Administration Zinc Sulfate 220 mg 12/21/16 10:00 12/23/16 09:21 Orazinc - PO 220 mg DAILY JONAS Administration Impression 1. CKD 2. hx CVA 3. CAD 4. DM 5. BPH 6. chol 7. PVD 8. s/p angio of the right leg with stenting 9. PNA 10. dyspnea 11. lactic acidosis Plan - change lasix to PO - repeat labs in am - monitor pulse ox - pulmonary follow up - titrate down steroids as tolerated - discussed plan with pt and Dr Wilson
--- NOTE | 2016-12-23 15:53 | PN ---
Progress Note, Physician Chief Complaint: Cardiology follow up On NRB mask. Telem NSR History of Present Illness: 81 year old man history of NIDDM, CAD s/p CABG at [facility], BPH, CKD, pneumonia, chronic systolic CHF who was recently admitted at [facility] for PVD and leg ulcer s/p angio complicated by ATN resolved now admitted with sob and hypoxia with volume overload and PNA. No chest pain. no edema. - Current Medication List Current Medications: Active Medications Acetaminophen (Tylenol -) 650 mg PO Q6H PRN PRN Reason: FEVER OR PAIN Last Admin: 12/23/16 14:00 Dose: 650 mg Amino Acids (Prosource No Carb Liquid Pkt) 30 ml PO BID@0800,1730 [facility] Last Admin: 12/23/16 08:52 Dose: 30 ml Arformoterol Tartrate (Brovana (Restricted To Pulmonology/Resp) -) 1 amp NEB BID [facility] Last Admin: 12/23/16 10:40 Dose: 1 amp Ascorbic Acid (Vitamin C -) 250 mg PO BID [facility] Last Admin: 12/23/16 09:21 Dose: 250 mg Aspirin (Ecotrin -) 81 mg PO DAILY [facility] Last Admin: 12/23/16 09:21 Dose: 81 mg Bacitracin (Bacitracin -) 1 applic TP DAILY [facility] Last Admin: 12/22/16 09:45 Dose: 1 applic Clopidogrel Bisulfate (Plavix -) 75 mg PO DAILY [facility] Last Admin: 12/23/16 09:21 Dose: 75 mg Collagenase (Santyl -) 1 applic TP DAILY [facility] Last Admin: 12/22/16 09:45 Dose: Not Given Furosemide (Lasix Injection -) 40 mg IVPB DAILY [facility] Last Admin: 12/23/16 09:20 Dose: 40 mg Guaifenesin (Robitussin Dm -) 10 ml PO Q6H PRN PRN Reason: COUGH Piperacillin Sod/Tazobactam Sod (Zosyn 3.375gm Ivpb (Pre-Docked)) 50 mls @ 100 mls/hr IVPB Q8H-IV JONAS PRN Reason: Protocol Last Admin: 12/23/16 10:19 Dose: 100 mls/hr Insulin Aspart (Novolog Vial Sliding Scale -) 1 vial SQ ACHS JONAS PRN Reason: Protocol Last Admin: 12/23/16 11:26 Dose: 8 units Insulin Detemir (Levemir Vial) 35 units SQ AM [facility] Last Admin: 12/23/16 06:24 Dose: 35 units Insulin Detemir (Levemir Vial) 15 units SQ HS [facility] Last Admin: 12/22/16 22:28 Dose: 15 units Lidocaine/Aluminum/Magnesium/Simeth (Magic Mouthwash *Sjr Formula* -) 5 ml MM Q6HPO [facility] Last Admin: 12/23/16 13:56 Dose: Not Given Magnesium Hydroxide (Milk Of Magnesia -) 30 ml PO HS PRN PRN Reason: CONSTIPATION Last Admin: 12/19/16 22:08 Dose: 30 ml Methylprednisolone Sodium Succinate (Solu-Medrol -) 40 mg IVPB Q8H-IV JONAS Metoprolol Succinate (Toprol Xl -) 25 mg PO DAILY [facility] Last Admin: 12/23/16 09:21 Dose: 25 mg Multivitamins/Minerals/Vitamin C (Tab-A-Vit -) 1 tab PO DAILY [facility] Last Admin: 12/23/16 09:21 Dose: 1 tab Pantoprazole Sodium (Protonix -) 40 mg PO DAILY [facility] Last Admin: 12/23/16 09:21 Dose: 40 mg Silver Sulfadiazine (Silvadene -) 1 applic TP BID [facility] Last Admin: 12/22/16 22:29 Dose: 1 applic Tamsulosin HCl (Flomax -) 0.4 mg PO DAILY@0830 [facility] Last Admin: 12/23/16 08:52 Dose: 0.4 mg Zinc Sulfate (Orazinc -) 220 mg PO DAILY [facility] Last Admin: 12/23/16 09:21 Dose: 220 mg - Objective Vital Signs: Vital Signs Temperature 97.6 F 12/23/16 14:33 Pulse Rate 66 12/23/16 14:33 Respiratory Rate 20 12/23/16 14:33 Blood Pressure 145/66 12/23/16 14:33 O2 Sat by Pulse Oximetry (%) 98 12/23/16 10:15 Constitutional: Yes: Thin Eyes: Yes: Conjunctiva Clear, EOM Intact HENT: Yes: Atraumatic, Normocephalic Neck: Yes: Supple, Trachea Midline Cardiovascular: Yes: Regular Rate and Rhythm Respiratory: Yes: Regular, CTA Bilaterally Gastrointestinal: Yes: Normal Bowel Sounds Edema: No Labs: CBC, BMP 12/21/16 05:35 12/23/16 05:35 INR, PTT INR 1.12 (0.82-1.09) 12/16/16 12:00 Problem List - Problems (1) Acute hypoxemic respiratory failure Assessment/Plan: Pneumonia with acute on chronic systolic heart failure. continue Metoprolol XL 25mg QD Sig increase in BUN Switch to oral diuretic. Code(s): J96.01 - ACUTE RESPIRATORY FAILURE WITH HYPOXIA (2) CAD (coronary artery disease) Assessment/Plan: Stable CAD. Heart failure controlled. His hypoxia likely more from infection and lung disease Code(s): I25.10 - ATHSCL HEART DISEASE OF [place] CORONARY ARTERY W/O ANG PCTRS
[2016-12-23] MEDS: COLLAGENASE CLOSTRIDIUM HIST. 30 GRAMS TUBE TP SCH (16:46)
[2016-12-23] MEDS: SILVER SULFADIAZINE 1% TOP CREAM 50 GM JAR TP SCH ×2 (16:46→21:36)
[2016-12-23] MEDS: BACITRACIN 15 GM TUBE TOPICAL OINTMENT TP SCH (16:46)
--- NOTE | 2016-12-24 01:54 | HOSP ---
Subjective - Review of Symptoms Events since last encounter: 81 year old man history of NIDDM, CAD s/p CABG at [facility], BPH, CKD, pneumonia, chronic systolic CHF who was recently admitted at [facility] for PVD and leg ulcer s/p angio complicated by ATN resolved now admitted with sob and hypoxia with volume overload and Pneumonia with acute on chronic systolic heart failure. Rapid response called by nurse for O2 saturation 86% on 100% non rebreather, BP 72/32 HR 62BPM. when I arrived to see patient patient was awake, alert, confused, speech slow answering simple questions. Repeat BP 158/72 HR 70, o2 sat 96% on non rebreather at 100%. after 5 minutes patient regained mental status, AAox3, non confused. patient reports he was in deep sleep and has sleep apnea when he woke up he was initially confused. discussed with patient the importance of use Bipap, After several attempts to offer bipap, he refused the machine and diagnostic tests, he took off the rebreather and threatened to go home. He stated the rebreather mask is the only on he would would and only one he tolerates. patient reports he feels much better than he came in the hospital an dis continually improving and currently is at base line. No chest pain, sob, fevers, chills, n//v/d, focal neurological deficit, complains of orthopnea and sleep apnea. Physical Examination Vital Signs: Vital Signs Temperature 97.2 F L 12/23/16 22:00 Pulse Rate 62 12/23/16 22:00 Respiratory Rate 20 12/23/16 22:00 Blood Pressure 132/68 12/23/16 22:00 O2 Sat by Pulse Oximetry (%) 93 L 12/23/16 22:55 Constitutional: Yes: Anxious, Pallor, Thin Eyes: Yes: WNL, Conjunctiva Clear, EOM Intact Neck: Yes: WNL Cardiovascular: Yes: Regular Rate and Rhythm, S1, S2 Respiratory: Yes: Regular Gastrointestinal: Yes: WNL, Normal Bowel Sounds, Soft Musculoskeletal: Yes: WNL Extremities: Yes: WNL Edema: LLE: Trace, RLE: Trace Neurological: Yes: WNL, Alert, Oriented, Cran Nerves II-XII Intact ...Motor Strength: WNL Psychiatric: Yes: WNL, Alert, Oriented Labs: CBC, BMP 12/21/16 05:35 12/23/16 05:35 Hospitalist Encounter Assessment: 81 year old man history of NIDDM, CAD s/p CABG at [facility], BPH, CKD, pneumonia, chronic systolic CHF who was recently admitted at [facility] for PVD and leg ulcer s/p angio complicated by ATN resolved now admitted with sob and hypoxia with volume overload and Pneumonia with acute on chronic systolic heart failure. No chest pain, sob, fevers, chills, n//v/d, focal neurological deficit, complains of orthopnea and sleep apnea. AMS 2/2 Acute hypoxemic respiratory failure 2/2 sleep apnea after patient awake, initally confused O2 sat and Bp corrected, no event on quality assurance monitor final, denies patient refusing BIpap and other diagnostic exams patient agrees to use 100% non rebreather cont quality assurance monitor final consider to offer patient high flow NC as outpatient monitor pulse ox pulm on board sleep studies as outpatient Visit type - Emergency Visit Emergency Visit: Yes ED Registration Date: 12/16/16 Care time: The patient presented to the Emergency Department on the above date and was hospitalized for further evaluation of their emergent condition. - New Patient This patient is new to me today: No - Critical Care Critical Care patient: No
[2016-12-24] MEDS: methylPREDNISolone NA SUCC 40 MG/1 ML VIAL IVPB SCH ×5 (02:15→21:44)
[2016-12-24] MEDS: MAG HYDROX/ALH/SMC/DPHA/LIDO 240 ML MOUTHWASH MM SCH ×4 (02:15→17:24)
[2016-12-24] MEDS: INSULIN SLIDING SCALE (NOVOLOG) 1 VIAL SQ SCH ×4 (06:44→21:44)
[2016-12-24] MEDS: INSULIN DETEMIR 100 UNITS/ML MDV SQ SCH ×2 (06:44→21:44)
[2016-12-24 07:40] LABS: CALCIUM 8.3 mg/dL (8.5-10.1); MAGNESIUM 2.4 mg/dL (1.8-2.4)
[2016-12-24 07:42] LABS: COCKROFT - GAULT 25.92; CREATININE 2.1 mg/dL (0.7-1.3)
[2016-12-24] MEDS: ARFORMOTEROL TARTRATE 15 MCG/2 ML VIAL NEB SCH ×2 (10:00→22:43)
[2016-12-24] MEDS ORDERED: FUROSEMIDE 40 MG TABLET (FP) PO SCH (10:00)
--- NOTE | 2016-12-24 10:54 | PN ---
Progress Note, Physician History of Present Illness: 81 year old man history of NIDDM, CAD s/p CABG at [facility], BPH, CKD, pneumonia, chronic systolic CHF who was recently admitted at [facility] for PVD and leg ulcer s/p angio complicated by ATN resolved now admitted with sob and hypoxia with volume overload and Pneumonia with acute on chronic systolic heart failure. Rapid response called by nurse for O2 saturation 86% on 100% non rebreather, BP 72/32 HR 62BPM. PT STATES HE IS OK--HE DID NOT HAVE OXYGEN ON AND THAT WAS THE REASON--DENIES ANY CP - Current Medication List Current Medications: Active Medications Acetaminophen (Tylenol -) 650 mg PO Q6H PRN PRN Reason: FEVER OR PAIN Last Admin: 12/23/16 21:31 Dose: 650 mg Amino Acids (Prosource No Carb Liquid Pkt) 30 ml PO BID@0800,1730 [facility] Last Admin: 12/23/16 16:51 Dose: 30 ml Arformoterol Tartrate (Brovana (Restricted To Pulmonology/Resp) -) 1 amp NEB BID [facility] Last Admin: 12/23/16 23:05 Dose: 1 amp Ascorbic Acid (Vitamin C -) 250 mg PO BID [facility] Last Admin: 12/23/16 23:39 Dose: 250 mg Aspirin (Ecotrin -) 81 mg PO DAILY [facility] Last Admin: 12/23/16 09:21 Dose: 81 mg Bacitracin (Bacitracin -) 1 applic TP DAILY [facility] Last Admin: 12/23/16 16:46 Dose: 1 applic Clopidogrel Bisulfate (Plavix -) 75 mg PO DAILY [facility] Last Admin: 12/23/16 09:21 Dose: 75 mg Collagenase (Santyl -) 1 applic TP DAILY [facility] Last Admin: 12/23/16 16:46 Dose: Not Given Furosemide (Lasix -) 40 mg PO DAILY [facility] Guaifenesin (Robitussin Dm -) 10 ml PO Q6H PRN PRN Reason: COUGH Insulin Aspart (Novolog Vial Sliding Scale -) 1 vial SQ ACHS [facility] PRN Reason: Protocol Last Admin: 12/24/16 06:44 Dose: 2 units Insulin Detemir (Levemir Vial) 35 units SQ AM [facility] Last Admin: 12/24/16 06:44 Dose: 35 units Insulin Detemir (Levemir Vial) 15 units SQ HS [facility] Last Admin: 12/23/16 21:36 Dose: 15 units Lidocaine/Aluminum/Magnesium/Simeth (Magic Mouthwash *Sjr Formula* -) 5 ml MM Q6HPO [facility] Last Admin: 12/24/16 06:44 Dose: Not Given Magnesium Hydroxide (Milk Of Magnesia -) 30 ml PO HS PRN PRN Reason: CONSTIPATION Last Admin: 12/19/16 22:08 Dose: 30 ml Methylprednisolone Sodium Succinate (Solu-Medrol -) 40 mg IVPB Q6H-IV JONAS Metoprolol Succinate (Toprol Xl -) 25 mg PO DAILY [facility] Last Admin: 12/23/16 09:21 Dose: 25 mg Multivitamins/Minerals/Vitamin C (Tab-A-Vit -) 1 tab PO DAILY [facility] Last Admin: 12/23/16 09:21 Dose: 1 tab Pantoprazole Sodium (Protonix -) 40 mg PO DAILY [facility] Last Admin: 12/23/16 09:21 Dose: 40 mg Silver Sulfadiazine (Silvadene -) 1 applic TP BID [facility] Last Admin: 12/23/16 21:36 Dose: 1 applic Tamsulosin HCl (Flomax -) 0.4 mg PO DAILY@0830 [facility] Last Admin: 12/23/16 08:52 Dose: 0.4 mg Zinc Sulfate (Orazinc -) 220 mg PO DAILY [facility] Last Admin: 12/23/16 09:21 Dose: 220 mg - Objective Vital Signs: Vital Signs Temperature 98 F 12/24/16 10:00 Pulse Rate 60 12/24/16 10:00 Respiratory Rate 20 12/24/16 10:00 Blood Pressure 144/64 12/24/16 10:00 O2 Sat by Pulse Oximetry (%) 93 L 12/24/16 05:49 Cardiovascular: Yes: Murmur, S1 Respiratory: Yes: Diminished, On Venti-Mask, Rhonchi Gastrointestinal: Yes: Normal Bowel Sounds, Soft Edema: No Labs: CBC, BMP 12/21/16 05:35 12/24/16 05:35 INR, PTT INR 1.12 (0.82-1.09) 12/16/16 12:00 Problem List - Problems (1) Pneumonia Assessment/Plan: OFFABX PER ID CT OF CHEST CULTURES Code(s): J18.9 - PNEUMONIA, UNSPECIFIED ORGANISM Qualifiers: Qualified Code(s): J18.9 - Pneumonia, unspecified organism (2) CKD (chronic kidney disease) Assessment/Plan: CR 1.8 MONITOR ON LASIX RENAL ON BOARD Code(s): N18.9 - CHRONIC KIDNEY DISEASE, UNSPECIFIED Qualifiers: Qualified Code(s): N18.3 - Chronic kidney disease, stage 3 (moderate) (3) CAD (coronary artery disease) Assessment/Plan: NO CP Code(s): I25.10 - ATHSCL HEART DISEASE OF [place] CORONARY ARTERY W/O ANG PCTRS (4) CHF (congestive heart failure) Assessment/Plan: ON PO LASIX BNP--HIGH CARDIO ON BOARD ECHO NOTED Code(s): I50.9 - HEART FAILURE, UNSPECIFIED Qualifiers: Qualified Code(s): I50.23 - Acute on chronic systolic (congestive) heart failure (5) Diabetes Assessment/Plan: BGM--SS ENDO Code(s): E11.9 - TYPE 2 DIABETES MELLITUS WITHOUT COMPLICATIONS (6) PAD (peripheral artery disease) Code(s): I73.9 - PERIPHERAL VASCULAR DISEASE, UNSPECIFIED (7) SOB (shortness of breath) Code(s): R06.02 - SHORTNESS OF BREATH
--- NOTE | 2016-12-24 10:56 | PN ---
Progress Note (short form) - Note Progress Note: PULMONARY HAD RAPID RESPONSE CALLED LAST PM DUE TO UNRESPONSIVENESS NOW AWAKE/ALERT/ATE BREAKFAST WITHOUT ASSISTANCE STILL REQUIRES HIGH CONCENTRATIONS OF O2 IN ORDER TO MAINTAIN SPO2 GREATER THAN 90 APPEARS DYSPNEIC AT REST ANICTERIC/EDENTULOUS SCATTERED CRACKLES S1S2 RSR BS+ DIMINISHED LOWER EXT EDEMA REVIEW OF PAST CT CHEST () AND PRESENT CT CHEST REVEAL RAPID PROGRESSION OF INTERSTITIAL LUNG DISEASE WITH BULLA FORMATION AND RIGHT PLEURAL EFFUSION(WHICH WAS PRESENT IN JULY BUT NOW DIMINISHED) I BELIEVE THIS INITIAL PATTERN OF RAPID PROGRESSION OVER 5 MONTHS COULD HAVE BEEN C/W ACUTE INTERSTITIAL PNEUMONITIS (AIP) WHICH HAS PROGRESSED TO IT'S PRESENT FORM ILD. THE ETIOLOGY OF THE INCITING EVENT NEEDS TO BE DETERMINED IN ORDER TO PLAN TREATMENT LABS TO EXCLUDE CONNECTIVE TISSUE DISEASES/INFECTIONS/DRUG INDUCED TOXICITIES/ ETC SHOULD BE ORDERED WOULD ALSO ASK T-SURG TO [facility] FOR VAT BX ABX per ID Daily weight I&O BD TX solumedrol Q6 Must maintain O2 sat greater than 90% Overall prognosis is poor Deandra KRUGER MD
[2016-12-24] MEDS: MULTIVITAMINS (DAILY MVI) TABLET (FP) PO SCH (11:34)
[2016-12-24] MEDS: TAMSULOSIN HCL 0.4 MG CAP.ER.24H (FP) PO SCH (11:34)
[2016-12-24] MEDS: ZINC SULFATE 220 MG CAPSULE (FP) PO SCH (11:34)
[2016-12-24] MEDS: PANTOPRAZOLE 40 MG TABLET (FP) PO SCH (11:34)
[2016-12-24] MEDS: METOPROLOL SUCCINATE 25 MG TAB.SR.24H (FP) PO SCH (11:34)
[2016-12-24] MEDS: CLOPIDOGREL BISULFATE 75 MG TABLET (FP) PO SCH (11:34)
[2016-12-24] MEDS: ASPIRIN COATED 81 MG TABLET.EC PO SCH (11:35)
[2016-12-24] MEDS: AMINO ACIDS/PROTEIN HYDROLYS 30 ML LIQUID.PKT PO SCH ×2 (11:35→17:24)
[2016-12-24] MEDS ORDERED: PT OWN MED DRAWER 7, Y5N ONE (11:37)
[2016-12-24] MEDS: ASCORBIC ACID 250 MG TABLET (FP) PO SCH ×2 (11:39→22:48)
[2016-12-24] MEDS ORDERED: methylPREDNISolone NA SUCC 125 MG/2 ML VIAL ONE (12:28)
--- NOTE | 2016-12-24 13:32 | PN ---
Progress Note, Physician History of Present Illness: Renal f/u Pt remains with dyspnea and requires 100% NRM On Lasix daily Today's CXR shows an enlarged heart and congestion - Current Medication List Current Medications: Active Medications Acetaminophen (Tylenol -) 650 mg PO Q6H PRN PRN Reason: FEVER OR PAIN Last Admin: 12/23/16 21:31 Dose: 650 mg Amino Acids (Prosource No Carb Liquid Pkt) 30 ml PO BID@0800,1730 [facility] Last Admin: 12/24/16 11:35 Dose: 30 ml Arformoterol Tartrate (Brovana (Restricted To Pulmonology/Resp) -) 1 amp NEB BID [facility] Last Admin: 12/24/16 10:00 Dose: 1 amp Ascorbic Acid (Vitamin C -) 250 mg PO BID [facility] Last Admin: 12/24/16 11:39 Dose: 250 mg Aspirin (Ecotrin -) 81 mg PO DAILY [facility] Last Admin: 12/24/16 11:35 Dose: 81 mg Bacitracin (Bacitracin -) 1 applic TP DAILY [facility] Last Admin: 12/23/16 16:46 Dose: 1 applic Clopidogrel Bisulfate (Plavix -) 75 mg PO DAILY [facility] Last Admin: 12/24/16 11:34 Dose: 75 mg Collagenase (Santyl -) 1 applic TP DAILY [facility] Last Admin: 12/23/16 16:46 Dose: Not Given Furosemide (Lasix -) 40 mg PO DAILY [facility] Last Admin: 12/24/16 11:34 Dose: 40 mg Guaifenesin (Robitussin Dm -) 10 ml PO Q6H PRN PRN Reason: COUGH Insulin Aspart (Novolog Vial Sliding Scale -) 1 vial SQ ACHS [facility] PRN Reason: Protocol Last Admin: 12/24/16 11:59 Dose: 6 units Insulin Detemir (Levemir Vial) 35 units SQ AM [facility] Last Admin: 12/24/16 06:44 Dose: 35 units Insulin Detemir (Levemir Vial) 15 units SQ HS [facility] Last Admin: 12/23/16 21:36 Dose: 15 units Lidocaine/Aluminum/Magnesium/Simeth (Magic Mouthwash *Sjr Formula* -) 5 ml MM Q6HPO [facility] Last Admin: 12/24/16 12:38 Dose: 5 mm Magnesium Hydroxide (Milk Of Magnesia -) 30 ml PO HS PRN PRN Reason: CONSTIPATION Last Admin: 12/19/16 22:08 Dose: 30 ml Methylprednisolone Sodium Succinate (Solu-Medrol -) 40 mg IVPB Q6H-IV [facility] Last Admin: 12/24/16 12:31 Dose: 40 mg Metoprolol Succinate (Toprol Xl -) 25 mg PO DAILY [facility] Last Admin: 12/24/16 11:34 Dose: 25 mg Multivitamins/Minerals/Vitamin C (Tab-A-Vit -) 1 tab PO DAILY [facility] Last Admin: 12/24/16 11:34 Dose: 1 tab Pantoprazole Sodium (Protonix -) 40 mg PO DAILY [facility] Last Admin: 12/24/16 11:34 Dose: 40 mg Silver Sulfadiazine (Silvadene -) 1 applic TP BID [facility] Last Admin: 12/23/16 21:36 Dose: 1 applic Tamsulosin HCl (Flomax -) 0.4 mg PO DAILY@0830 [facility] Last Admin: 12/24/16 11:34 Dose: 0.4 mg Zinc Sulfate (Orazinc -) 220 mg PO DAILY [facility] Last Admin: 12/24/16 11:34 Dose: 220 mg - Objective Vital Signs: Vital Signs Temperature 98 F 12/24/16 10:00 Pulse Rate 60 12/24/16 10:00 Respiratory Rate 20 12/24/16 10:00 Blood Pressure 144/64 12/24/16 10:00 O2 Sat by Pulse Oximetry (%) 96 12/24/16 10:00 Constitutional: Yes: Mild Distress Cardiovascular: Yes: S1, S2 Respiratory: Yes: Rales Gastrointestinal: Yes: Soft. No: Tenderness, Rebound Genitourinary: No: Bladder Distention Edema: No Labs: CBC, BMP 12/21/16 05:35 12/24/16 05:35 INR, PTT INR 1.12 (0.82-1.09) 12/16/16 12:00 Assessment/Plan Impression 1. Acute on CKD with improved serum Cr by diuresing 2. Dyspnea with congestion on CXR 3. CAD 4. DM 5. BPH 6. chol 7. PVD 8. s/p angio of the right leg with stenting 9. PNA 10. H/O CVA 11. lactic acidosis Plan - Additional lasix IV then daily IV lasix - Repeat labs in am - Monitor pulse ox - titrate down steroids as tolerated -Dr Tucker
[2016-12-24] MEDS ORDERED: FUROSEMIDE 40 MG/4 ML INJECTABLE VIAL IVPB ONE (13:39)
[2016-12-24] MEDS: COLLAGENASE CLOSTRIDIUM HIST. 30 GRAMS TUBE TP SCH (16:11)
[2016-12-24] MEDS: BACITRACIN 15 GM TUBE TOPICAL OINTMENT TP SCH (16:11)
[2016-12-24] MEDS: SILVER SULFADIAZINE 1% TOP CREAM 50 GM JAR TP SCH ×2 (16:12→21:45)
[2016-12-24] MEDS ORDERED: INSULIN (NOVOLOG) ASPART 100 UNITS/ML 10ML VIAL ONE (21:27)
[2016-12-25] MEDS: MAG HYDROX/ALH/SMC/DPHA/LIDO 240 ML MOUTHWASH MM SCH ×4 (00:17→17:26)
[2016-12-25] MEDS: methylPREDNISolone NA SUCC 40 MG/1 ML VIAL IVPB SCH ×4 (03:00→21:58)
[2016-12-25] MEDS: INSULIN DETEMIR 100 UNITS/ML MDV SQ SCH ×2 (06:17→21:58)
[2016-12-25] MEDS: INSULIN SLIDING SCALE (NOVOLOG) 1 VIAL SQ SCH ×4 (06:19→21:59)
[2016-12-25] MEDS: ASCORBIC ACID 250 MG TABLET (FP) PO SCH ×2 (10:15→23:00)
[2016-12-25] MEDS: AMINO ACIDS/PROTEIN HYDROLYS 30 ML LIQUID.PKT PO SCH ×2 (10:15→16:29)
[2016-12-25] MEDS: ZINC SULFATE 220 MG CAPSULE (FP) PO SCH (10:15)
[2016-12-25] MEDS: CLOPIDOGREL BISULFATE 75 MG TABLET (FP) PO SCH (10:15)
[2016-12-25] MEDS: METOPROLOL SUCCINATE 25 MG TAB.SR.24H (FP) PO SCH (10:15)
[2016-12-25] MEDS: MULTIVITAMINS (DAILY MVI) TABLET (FP) PO SCH (10:15)
[2016-12-25] MEDS: PANTOPRAZOLE 40 MG TABLET (FP) PO SCH (10:15)
[2016-12-25] MEDS: ASPIRIN COATED 81 MG TABLET.EC PO SCH (10:15)
[2016-12-25] MEDS: TAMSULOSIN HCL 0.4 MG CAP.ER.24H (FP) PO SCH (10:15)
[2016-12-25] MEDS: BACITRACIN 15 GM TUBE TOPICAL OINTMENT TP SCH (10:16)
[2016-12-25] MEDS: FUROSEMIDE 40 MG/4 ML INJECTABLE VIAL IVPB SCH (10:16)
[2016-12-25] MEDS: SILVER SULFADIAZINE 1% TOP CREAM 50 GM JAR TP SCH ×2 (10:16→21:59)
[2016-12-25] MEDS: COLLAGENASE CLOSTRIDIUM HIST. 30 GRAMS TUBE TP SCH (10:16)
[2016-12-25] MEDS: ARFORMOTEROL TARTRATE 15 MCG/2 ML VIAL NEB SCH ×2 (10:56→22:43)
[2016-12-25 11:41] LABS: BASOPHIL 0.3 % (0-2.0); MCH 29.8 pg (25.7-33.7); MCHC 33.1 g/dl (32.0-35.9); MEAN CELL VOLUME 90.2 fl (80-96); MEAN PLT VOLUME 8.4 fl (7.5-11.1); NEUTROPHILS 92.2 % (42.8-82.8); PLATELET COUNT 304 K/MM3 (134-434); RDW 13.9 % (11.9-15.9); WHITE BLOOD COUNT 15.3 K/mm3 (4.0-10.0)
[2016-12-25 12:00] LABS: CALCIUM 8.3 mg/dL (8.5-10.1); COCKROFT - GAULT 32.02; CREATININE 1.7 mg/dL (0.7-1.3)
--- NOTE | 2016-12-25 12:10 | PN ---
Progress Note, Physician History of Present Illness: Renal f/u Pt had refused the lab work but now has consented Today's Cr is better as are the rales after the extra IV Lasix yesterday He is on BiPAP now - Current Medication List Current Medications: Active Medications Acetaminophen (Tylenol -) 650 mg PO Q6H PRN PRN Reason: FEVER OR PAIN Last Admin: 12/23/16 21:31 Dose: 650 mg Amino Acids (Prosource No Carb Liquid Pkt) 30 ml PO BID@0800,1730 [facility] Last Admin: 12/25/16 10:15 Dose: 30 ml Arformoterol Tartrate (Brovana (Restricted To Pulmonology/Resp) -) 1 amp NEB BID [facility] Last Admin: 12/24/16 22:43 Dose: 1 amp Ascorbic Acid (Vitamin C -) 250 mg PO BID [facility] Last Admin: 12/25/16 10:15 Dose: 250 mg Aspirin (Ecotrin -) 81 mg PO DAILY [facility] Last Admin: 12/25/16 10:15 Dose: 81 mg Bacitracin (Bacitracin -) 1 applic TP DAILY [facility] Last Admin: 12/25/16 10:16 Dose: 1 applic Clopidogrel Bisulfate (Plavix -) 75 mg PO DAILY [facility] Last Admin: 12/25/16 10:15 Dose: 75 mg Collagenase (Santyl -) 1 applic TP DAILY [facility] Last Admin: 12/25/16 10:16 Dose: Not Given Furosemide (Lasix Injection -) 40 mg IVPB DAILY [facility] Last Admin: 12/25/16 10:16 Dose: 40 mg Guaifenesin (Robitussin Dm -) 10 ml PO Q6H PRN PRN Reason: COUGH Insulin Aspart (Novolog Vial Sliding Scale -) 1 vial SQ ACHS [facility] PRN Reason: Protocol Last Admin: 12/25/16 06:19 Dose: 4 units Insulin Detemir (Levemir Vial) 35 units SQ AM [facility] Last Admin: 12/25/16 06:17 Dose: 35 units Insulin Detemir (Levemir Vial) 15 units SQ HS [facility] Last Admin: 12/24/16 21:44 Dose: 15 units Lidocaine/Aluminum/Magnesium/Simeth (Magic Mouthwash *Sjr Formula* -) 5 ml MM Q6HPO [facility] Last Admin: 12/25/16 06:17 Dose: 5 ml Magnesium Hydroxide (Milk Of Magnesia -) 30 ml PO HS PRN PRN Reason: CONSTIPATION Last Admin: 12/19/16 22:08 Dose: 30 ml Methylprednisolone Sodium Succinate (Solu-Medrol -) 40 mg IVPB Q6H-IV [facility] Last Admin: 12/25/16 10:16 Dose: 40 mg Metoprolol Succinate (Toprol Xl -) 25 mg PO DAILY [facility] Last Admin: 12/25/16 10:15 Dose: 25 mg Multivitamins/Minerals/Vitamin C (Tab-A-Vit -) 1 tab PO DAILY [facility] Last Admin: 12/25/16 10:15 Dose: 1 tab Pantoprazole Sodium (Protonix -) 40 mg PO DAILY [facility] Last Admin: 12/25/16 10:15 Dose: 40 mg Silver Sulfadiazine (Silvadene -) 1 applic TP BID [facility] Last Admin: 12/25/16 10:16 Dose: 1 applic Tamsulosin HCl (Flomax -) 0.4 mg PO DAILY@0830 [facility] Last Admin: 12/25/16 10:15 Dose: 0.4 mg Zinc Sulfate (Orazinc -) 220 mg PO DAILY [facility] Last Admin: 12/25/16 10:15 Dose: 220 mg - Objective Vital Signs: Vital Signs Temperature 98.1 F 12/25/16 10:00 Pulse Rate 76 12/25/16 10:00 Respiratory Rate 20 12/25/16 10:00 Blood Pressure 159/63 12/25/16 10:00 O2 Sat by Pulse Oximetry (%) 89 L 12/25/16 09:00 Constitutional: Yes: Calm Cardiovascular: Yes: S1, S2 Respiratory: Yes: Rales (Rales are less diffuse today), Other Gastrointestinal: Yes: Soft. No: Tenderness, Rebound Edema: LLE: Trace, RLE: Trace Labs: CBC, BMP 12/25/16 11:25 INR, PTT INR 1.12 (0.82-1.09) 12/16/16 12:00 Assessment/Plan Impression 1. Acute on CKD with improved serum Cr with diuresis 2. Dyspnea with congestion on CXR 3. CAD 4. DM 5. BPH 6. HLD 7. PVD 8. s/p angio of the right leg with stenting 9. PNA 10. H/O CVA 11. lactic acidosis 12. Anemia Plan - Additional Lasix IV at 2 pm today with 20 meq of kcl - Repeat labs in am - Monitor pulse ox - titrate down steroids as tolerated -Dr Tucker
--- NOTE | 2016-12-25 12:45 | PN ---
Progress Note, Physician History of Present Illness: 81 year old man history of NIDDM, CAD s/p CABG at [facility], BPH, CKD, pneumonia, chronic systolic CHF who was recently admitted at [facility] for PVD and leg ulcer s/p angio complicated by ATN resolved now admitted with sob and hypoxia with volume overload and Pneumonia with acute on chronic systolic heart failure. Rapid response called 0n 6/3 for O2 saturation 86% on 100%vand BP 72/32 HR 62BPM. this am pt on bipap at bedside--biopsy of lung discussed with both--they will think about it - Current Medication List Current Medications: Active Medications Acetaminophen (Tylenol -) 650 mg PO Q6H PRN PRN Reason: FEVER OR PAIN Last Admin: 12/23/16 21:31 Dose: 650 mg Amino Acids (Prosource No Carb Liquid Pkt) 30 ml PO BID@0800,1730 [facility] Last Admin: 12/25/16 10:15 Dose: 30 ml Arformoterol Tartrate (Brovana (Restricted To Pulmonology/Resp) -) 1 amp NEB BID [facility] Last Admin: 12/24/16 22:43 Dose: 1 amp Ascorbic Acid (Vitamin C -) 250 mg PO BID [facility] Last Admin: 12/25/16 10:15 Dose: 250 mg Aspirin (Ecotrin -) 81 mg PO DAILY [facility] Last Admin: 12/25/16 10:15 Dose: 81 mg Bacitracin (Bacitracin -) 1 applic TP DAILY [facility] Last Admin: 12/25/16 10:16 Dose: 1 applic Clopidogrel Bisulfate (Plavix -) 75 mg PO DAILY [facility] Last Admin: 12/25/16 10:15 Dose: 75 mg Collagenase (Santyl -) 1 applic TP DAILY [facility] Last Admin: 12/25/16 10:16 Dose: Not Given Furosemide (Lasix Injection -) 40 mg IVPB DAILY [facility] Last Admin: 12/25/16 10:16 Dose: 40 mg Furosemide (Lasix Injection -) 40 mg IVPB ONCE ONE Stop: 12/25/16 14:01 Guaifenesin (Robitussin Dm -) 10 ml PO Q6H PRN PRN Reason: COUGH Insulin Aspart (Novolog Vial Sliding Scale -) 1 vial SQ ACHS [facility] PRN Reason: Protocol Last Admin: 12/25/16 12:42 Dose: 2 units Insulin Detemir (Levemir Vial) 35 units SQ AM [facility] Last Admin: 12/25/16 06:17 Dose: 35 units Insulin Detemir (Levemir Vial) 15 units SQ HS [facility] Last Admin: 12/24/16 21:44 Dose: 15 units Lidocaine/Aluminum/Magnesium/Simeth (Magic Mouthwash *Sjr Formula* -) 5 ml MM Q6HPO [facility] Last Admin: 12/25/16 06:17 Dose: 5 ml Magnesium Hydroxide (Milk Of Magnesia -) 30 ml PO HS PRN PRN Reason: CONSTIPATION Last Admin: 12/19/16 22:08 Dose: 30 ml Methylprednisolone Sodium Succinate (Solu-Medrol -) 40 mg IVPB Q6H-IV [facility] Last Admin: 12/25/16 10:16 Dose: 40 mg Metoprolol Succinate (Toprol Xl -) 25 mg PO DAILY [facility] Last Admin: 12/25/16 10:15 Dose: 25 mg Multivitamins/Minerals/Vitamin C (Tab-A-Vit -) 1 tab PO DAILY [facility] Last Admin: 12/25/16 10:15 Dose: 1 tab Pantoprazole Sodium (Protonix -) 40 mg PO DAILY [facility] Last Admin: 12/25/16 10:15 Dose: 40 mg Potassium Chloride (K-Dur -) 20 meq PO ONCE ONE Stop: 12/25/16 14:01 Silver Sulfadiazine (Silvadene -) 1 applic TP BID [facility] Last Admin: 12/25/16 10:16 Dose: 1 applic Tamsulosin HCl (Flomax -) 0.4 mg PO DAILY@0830 [facility] Last Admin: 12/25/16 10:15 Dose: 0.4 mg Zinc Sulfate (Orazinc -) 220 mg PO DAILY [facility] Last Admin: 12/25/16 10:15 Dose: 220 mg - Objective Vital Signs: Vital Signs Temperature 98.1 F 12/25/16 10:00 Pulse Rate 76 12/25/16 10:00 Respiratory Rate 20 12/25/16 10:00 Blood Pressure 159/63 12/25/16 10:00 O2 Sat by Pulse Oximetry (%) 89 L 12/25/16 09:00 Cardiovascular: Yes: Regular Rate and Rhythm Respiratory: Yes: Diminished, On BiPap Gastrointestinal: Yes: Normal Bowel Sounds, Soft Labs: CBC, BMP 12/25/16 11:25 12/25/16 11:25 INR, PTT INR 1.12 (0.82-1.09) 12/16/16 12:00 Problem List - Problems (1) Pneumonia Assessment/Plan: OFFABX PER ID CT OF CHEST CULTURES Code(s): J18.9 - PNEUMONIA, UNSPECIFIED ORGANISM Qualifiers: Pneumonia type: due to unspecified organism Laterality: bilateral Lung location: unspecified part of lung Qualified Code(s): J18.9 - Pneumonia, unspecified organism (2) CKD (chronic kidney disease) Assessment/Plan: CR 1.8 MONITOR ON LASIX RENAL ON BOARD Code(s): N18.9 - CHRONIC KIDNEY DISEASE, UNSPECIFIED Qualifiers: Chronic kidney disease stage: stage 3 (moderate) Qualified Code(s): N18.3 - Chronic kidney disease, stage 3 (moderate) (3) CAD (coronary artery disease) Assessment/Plan: NO CP Code(s): I25.10 - ATHSCL HEART DISEASE OF [place] CORONARY ARTERY W/O ANG PCTRS Qualifiers: Associated angina: without angina (4) CHF (congestive heart failure) Assessment/Plan: ON PO LASIX BNP--HIGH CARDIO ON BOARD ECHO NOTED Code(s): I50.9 - HEART FAILURE, UNSPECIFIED Qualifiers: Congestive heart failure type: systolic Congestive heart failure chronicity: acute on chronic Qualified Code(s): I50.23 - Acute on chronic systolic (congestive) heart failure (5) Diabetes Assessment/Plan: BGM--SS ENDO Code(s): E11.9 - TYPE 2 DIABETES MELLITUS WITHOUT COMPLICATIONS Qualifiers: Diabetes mellitus complication status: with other specified complication (6) PAD (peripheral artery disease) Assessment/Plan: S/P ANGIO [facility] Code(s): I73.9 - PERIPHERAL VASCULAR DISEASE, UNSPECIFIED (7) SOB (shortness of breath) Assessment/Plan: V/Q SCAN ON SQ HEPARIN Code(s): R06.02 - SHORTNESS OF BREATH (8) Abnormal CT scan, chest Assessment/Plan: rapid progresion d/w dr garcia--will get thoracic surgery for possible biopsy Code(s): R93.8 - ABNORMAL FINDINGS ON DIAGNOSTIC IMAGING OF BODY STRUCTURES
--- NOTE | 2016-12-25 12:53 | PN ---
Progress Note (short form) - Note Progress Note: PULMONARY REMAINS HYPOXEMIC ON HIGH LEVELS O2/NIPPV FAMILY PRESENT APPEARS DYSPNEIC AT REST ANICTERIC/EDENTULOUS SCATTERED CRACKLES S1S2 RSR BS+ DIMINISHED LOWER EXT EDEMA REVIEW OF PAST CT CHEST () AND PRESENT CT CHEST REVEAL RAPID PROGRESSION OF INTERSTITIAL LUNG DISEASE WITH BULLA FORMATION AND RIGHT PLEURAL EFFUSION(WHICH WAS PRESENT IN JULY BUT NOW DIMINISHED) I BELIEVE THIS INITIAL PATTERN OF RAPID PROGRESSION OVER 5 MONTHS COULD HAVE BEEN C/W ACUTE INTERSTITIAL PNEUMONITIS (AIP) WHICH HAS PROGRESSED TO IT'S PRESENT FORM ILD. THE ETIOLOGY OF THE INCITING EVENT NEEDS TO BE DETERMINED IN ORDER TO PLAN TREATMENT( BELIEVES IT WAS PREVIOUS ANESTHESIA AND CONTRAST) LABS TO EXCLUDE CONNECTIVE TISSUE DISEASES/INFECTIONS/DRUG INDUCED TOXICITIES/ ETC SHOULD BE ORDERED WOULD ALSO ASK T-SURG TO [facility] FOR VAT BX( DOES NOT WANT BX) ABX per ID Daily weight I&O BD TX solumedrol Q6 Must maintain O2 sat greater than 90% Overall prognosis is poor Deandra KRUGER MD
[2016-12-25] MEDS ORDERED: FUROSEMIDE 40 MG/4 ML INJECTABLE VIAL IVPB ONE (14:00)
[2016-12-25] MEDS ORDERED: POTASSIUM CHLORIDE TABS 20 MEQ TABLET.ER (FP) PO ONE (14:00)
[2016-12-26] MEDS: methylPREDNISolone NA SUCC 40 MG/1 ML VIAL IVPB SCH ×4 (05:20→21:56)
[2016-12-26] MEDS: MAG HYDROX/ALH/SMC/DPHA/LIDO 240 ML MOUTHWASH MM SCH ×4 (05:21→17:12)
[2016-12-26 07:38] LABS: BASOPHIL 0.2 % (0-2.0); MCH 29.9 pg (25.7-33.7); MCHC 33.2 g/dl (32.0-35.9); MEAN CELL VOLUME 90.1 fl (80-96); MEAN PLT VOLUME 8.5 fl (7.5-11.1); PLATELET COUNT 314 K/MM3 (134-434); RDW 14.1 % (11.9-15.9); WHITE BLOOD COUNT 14.2 K/mm3 (4.0-10.0)
[2016-12-26] MEDS: INSULIN SLIDING SCALE (NOVOLOG) 1 VIAL SQ SCH ×4 (07:46→22:04)
[2016-12-26] MEDS: INSULIN DETEMIR 100 UNITS/ML MDV SQ SCH ×2 (07:47→22:04)
[2016-12-26 07:52] LABS: CALCIUM 7.9 mg/dL (8.5-10.1); COCKROFT - GAULT 36.29; CREATININE 1.5 mg/dL (0.7-1.3); MAGNESIUM 2.4 mg/dL (1.8-2.4)
[2016-12-26] MEDS: PANTOPRAZOLE 40 MG TABLET (FP) PO SCH (09:20)
[2016-12-26] MEDS: CLOPIDOGREL BISULFATE 75 MG TABLET (FP) PO SCH (09:20)
[2016-12-26] MEDS: ASPIRIN COATED 81 MG TABLET.EC PO SCH (09:20)
[2016-12-26] MEDS: ZINC SULFATE 220 MG CAPSULE (FP) PO SCH (09:20)
[2016-12-26] MEDS: BACITRACIN 15 GM TUBE TOPICAL OINTMENT TP SCH (09:20)
[2016-12-26] MEDS: AMINO ACIDS/PROTEIN HYDROLYS 30 ML LIQUID.PKT PO SCH ×2 (09:20→17:11)
[2016-12-26] MEDS: FUROSEMIDE 40 MG/4 ML INJECTABLE VIAL IVPB SCH (09:20)
[2016-12-26] MEDS: TAMSULOSIN HCL 0.4 MG CAP.ER.24H (FP) PO SCH (09:20)
[2016-12-26] MEDS: MULTIVITAMINS (DAILY MVI) TABLET (FP) PO SCH (09:20)
[2016-12-26] MEDS: METOPROLOL SUCCINATE 25 MG TAB.SR.24H (FP) PO SCH (09:20)
[2016-12-26] MEDS: SILVER SULFADIAZINE 1% TOP CREAM 50 GM JAR TP SCH ×2 (09:21→22:05)
[2016-12-26] MEDS: COLLAGENASE CLOSTRIDIUM HIST. 30 GRAMS TUBE TP SCH (09:21)
[2016-12-26] MEDS: ASCORBIC ACID 250 MG TABLET (FP) PO SCH ×2 (09:22→21:56)
[2016-12-26] MEDS: ARFORMOTEROL TARTRATE 15 MCG/2 ML VIAL NEB SCH ×2 (10:15→22:00)
--- NOTE | 2016-12-26 11:39 | PN ---
Progress Note, Physician History of Present Illness: pulmonary alert,dyspneic,hypoxic on 100% nrm - Current Medication List Current Medications: Active Medications Acetaminophen (Tylenol -) 650 mg PO Q6H PRN PRN Reason: FEVER OR PAIN Last Admin: 12/23/16 21:31 Dose: 650 mg Amino Acids (Prosource No Carb Liquid Pkt) 30 ml PO BID@0800,1730 [facility] Last Admin: 12/26/16 09:20 Dose: 30 ml Arformoterol Tartrate (Brovana (Restricted To Pulmonology/Resp) -) 1 amp NEB BID [facility] Last Admin: 12/26/16 10:15 Dose: 1 amp Ascorbic Acid (Vitamin C -) 250 mg PO BID [facility] Last Admin: 12/26/16 09:22 Dose: 250 mg Aspirin (Ecotrin -) 81 mg PO DAILY [facility] Last Admin: 12/26/16 09:20 Dose: 81 mg Bacitracin (Bacitracin -) 1 applic TP DAILY [facility] Last Admin: 12/26/16 09:20 Dose: 1 applic Clopidogrel Bisulfate (Plavix -) 75 mg PO DAILY [facility] Last Admin: 12/26/16 09:20 Dose: 75 mg Collagenase (Santyl -) 1 applic TP DAILY [facility] Last Admin: 12/26/16 09:21 Dose: Not Given Furosemide (Lasix Injection -) 40 mg IVPB DAILY [facility] Last Admin: 12/26/16 09:20 Dose: 40 mg Guaifenesin (Robitussin Dm -) 10 ml PO Q6H PRN PRN Reason: COUGH Insulin Aspart (Novolog Vial Sliding Scale -) 1 vial SQ ACHS [facility] PRN Reason: Protocol Last Admin: 12/26/16 07:46 Dose: 4 units Insulin Detemir (Levemir Vial) 35 units SQ AM [facility] Last Admin: 12/26/16 07:47 Dose: 35 units Insulin Detemir (Levemir Vial) 15 units SQ HS [facility] Last Admin: 12/25/16 21:58 Dose: 15 units Lidocaine/Aluminum/Magnesium/Simeth (Magic Mouthwash *Sjr Formula* -) 5 ml MM Q6HPO [facility] Last Admin: 12/26/16 05:21 Dose: 5 ml Magnesium Hydroxide (Milk Of Magnesia -) 30 ml PO HS PRN PRN Reason: CONSTIPATION Last Admin: 12/19/16 22:08 Dose: 30 ml Methylprednisolone Sodium Succinate (Solu-Medrol -) 40 mg IVPB Q6H-IV [facility] Last Admin: 12/26/16 09:20 Dose: 40 mg Metoprolol Succinate (Toprol Xl -) 25 mg PO DAILY [facility] Last Admin: 12/26/16 09:20 Dose: 25 mg Multivitamins/Minerals/Vitamin C (Tab-A-Vit -) 1 tab PO DAILY [facility] Last Admin: 12/26/16 09:20 Dose: 1 tab Pantoprazole Sodium (Protonix -) 40 mg PO DAILY [facility] Last Admin: 12/26/16 09:20 Dose: 40 mg Silver Sulfadiazine (Silvadene -) 1 applic TP BID [facility] Last Admin: 12/26/16 09:21 Dose: 1 applic Tamsulosin HCl (Flomax -) 0.4 mg PO DAILY@0830 [facility] Last Admin: 12/26/16 09:20 Dose: 0.4 mg Zinc Sulfate (Orazinc -) 220 mg PO DAILY [facility] Last Admin: 12/26/16 09:20 Dose: 220 mg - Objective Vital Signs: Vital Signs Temperature 97.8 F 12/26/16 10:00 Pulse Rate 65 12/26/16 10:00 Respiratory Rate 20 12/26/16 10:00 Blood Pressure 149/65 12/26/16 10:00 O2 Sat by Pulse Oximetry (%) 97 12/26/16 09:00 Constitutional: Yes: Moderate Distress, Thin Eyes: Yes: WNL HENT: Yes: WNL Neck: Yes: Supple Cardiovascular: Yes: Regular Rate and Rhythm, S1, S2 Respiratory: Yes: Rales (bilateral rales and rhonchi) Gastrointestinal: Yes: Normal Bowel Sounds, Soft Extremities: Yes: WNL Edema: No Labs: CBC, BMP 12/26/16 05:35 12/26/16 05:35 INR, PTT INR 1.12 (0.82-1.09) 12/16/16 12:00 Problem List - Problems (1) Acute hypoxemic respiratory failure Code(s): J96.01 - ACUTE RESPIRATORY FAILURE WITH HYPOXIA Assessment/Plan Problem List - Problems (1) CKD (chronic kidney disease) Code(s): N18.9 - CHRONIC KIDNEY DISEASE, UNSPECIFIED (2) PAD (peripheral artery disease) Code(s): I73.9 - PERIPHERAL VASCULAR DISEASE, UNSPECIFIED (3) Pneumonia Code(s): J18.9 - PNEUMONIA, UNSPECIFIED ORGANISM Qualifiers: Pneumonia type: due to unspecified organism Laterality: bilateral Lung location: unspecified part of lung Qualified Code(s): J18.9 - Pneumonia, unspecified organism (4) Respiratory distress Code(s): R06.00 - DYSPNEA, UNSPECIFIED (5) Microcytic anemia Code(s): D50.9 - IRON DEFICIENCY ANEMIA, UNSPECIFIED (6) BPH (benign prostatic hyperplasia) Code(s): N40.0 - BENIGN PROSTATIC HYPERPLASIA WITHOUT LOWER URINRY TRACT SYMP (7) CAD (coronary artery disease) Code(s): I25.10 - ATHSCL HEART DISEASE OF [place] CORONARY ARTERY W/O ANG PCTRS Qualifiers: Associated angina: with unspecified angina (8) CHF (congestive heart failure) Code(s): I50.9 - HEART FAILURE, UNSPECIFIED Qualifiers: Congestive heart failure type: systolic Congestive heart failure chronicity: acute on chronic Qualified Code(s): I50.23 - Acute on chronic systolic (congestive) heart failure (9) Diabetes Code(s): E11.9 - TYPE 2 DIABETES MELLITUS WITHOUT COMPLICATIONS Qualifiers: Diabetes mellitus complication status: with other specified complication 10 ACUTE HYPOXEMIC RESPIRATORY FAILURE I1. PNEUMONIA 12 ILD Assessment/Plan O2 to maintain O2sat 90% Bipap Lasix ABX per ID Daily weights I&O BD TX taper medrol chest x-ray today monitor renal function jolie,rf c-anca,p-anca, esr,crp Dr Tyler
--- NOTE | 2016-12-26 11:57 | PN ---
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 [facility] has worked all over [place] no history of TB BCG as child +DM, +CAD he recently had his teeth extracted in June in July he had a TURP this was followed by an admission for pneumonia (CAP) treated with rocephin he was discharged on augmentin with home oxygen apparently was doing okay at home getting to appts, walking in the neighborhood with walker, didn't use oxygen much on December 06 he was admitted to to [facility] for angiogram and stent for nonhealing right foot ulcer he had USHA and volume overload- [place] 12[place]16 with hypoxia and hypotension he had cultures drawn and was empirically treated for HAP zosyn d/conrad 12/23 he was started on steroids on 12/21 ct scan from 12/19 with extensive chronic interstitial lung disease with superimprosed acute consolidations Current Medications Acetaminophen (Tylenol -) 650 mg PO Q6H PRN PRN Reason: FEVER OR PAIN Last Admin: 12/23/16 21:31 Dose: 650 mg Amino Acids (Prosource No Carb Liquid Pkt) 30 ml PO BID@0800,1730 [facility] Last Admin: 12/26/16 09:20 Dose: 30 ml Arformoterol Tartrate (Brovana (Restricted To Pulmonology/Resp) -) 1 amp NEB BID [facility] Last Admin: 12/26/16 10:15 Dose: 1 amp Ascorbic Acid (Vitamin C -) 250 mg PO BID [facility] Last Admin: 12/26/16 09:22 Dose: 250 mg Aspirin (Ecotrin -) 81 mg PO DAILY [facility] Last Admin: 12/26/16 09:20 Dose: 81 mg Bacitracin (Bacitracin -) 1 applic TP DAILY [facility] Last Admin: 12/26/16 09:20 Dose: 1 applic Clopidogrel Bisulfate (Plavix -) 75 mg PO DAILY [facility] Last Admin: 12/26/16 09:20 Dose: 75 mg Collagenase (Santyl -) 1 applic TP DAILY [facility] Last Admin: 12/26/16 09:21 Dose: Not Given Furosemide (Lasix Injection -) 40 mg IVPB DAILY [facility] Last Admin: 12/26/16 09:20 Dose: 40 mg Guaifenesin (Robitussin Dm -) 10 ml PO Q6H PRN PRN Reason: COUGH Insulin Aspart (Novolog Vial Sliding Scale -) 1 vial SQ ACHS [facility] PRN Reason: Protocol Last Admin: 12/26/16 07:46 Dose: 4 units Insulin Detemir (Levemir Vial) 35 units SQ AM [facility] Last Admin: 12/26/16 07:47 Dose: 35 units Insulin Detemir (Levemir Vial) 15 units SQ HS [facility] Last Admin: 12/25/16 21:58 Dose: 15 units Lidocaine/Aluminum/Magnesium/Simeth (Magic Mouthwash *Sjr Formula* -) 5 ml MM Q6HPO [facility] Last Admin: 12/26/16 05:21 Dose: 5 ml Magnesium Hydroxide (Milk Of Magnesia -) 30 ml PO HS PRN PRN Reason: CONSTIPATION Last Admin: 12/19/16 22:08 Dose: 30 ml Methylprednisolone Sodium Succinate (Solu-Medrol -) 40 mg IVPB Q6H-IV [facility] Last Admin: 12/26/16 09:20 Dose: 40 mg Metoprolol Succinate (Toprol Xl -) 25 mg PO DAILY [facility] Last Admin: 12/26/16 09:20 Dose: 25 mg Multivitamins/Minerals/Vitamin C (Tab-A-Vit -) 1 tab PO DAILY [facility] Last Admin: 12/26/16 09:20 Dose: 1 tab Pantoprazole Sodium (Protonix -) 40 mg PO DAILY [facility] Last Admin: 12/26/16 09:20 Dose: 40 mg Silver Sulfadiazine (Silvadene -) 1 applic TP BID [facility] Last Admin: 12/26/16 09:21 Dose: 1 applic Tamsulosin HCl (Flomax -) 0.4 mg PO DAILY@0830 [facility] Last Admin: 12/26/16 09:20 Dose: 0.4 mg Zinc Sulfate (Orazinc -) 220 mg PO DAILY [facility] Last Admin: 12/26/16 09:20 Dose: 220 mg Vital Signs Period Temp Pulse Resp BP Sys/Blanca Pulse Ox Last 24 Hr 96.2 F-98 F 61-66 20-22 141-162/61-73 92-98 alert no thrush cor-rrr lungs decreased bs at bases abd soft, nt ext no edema dry ulcer right lateral calcaneus CBC, BMP 12/26/16 05:35 12/26/16 05:35 l cxray from 12/24 bilateral interstitial/alveolar infiltrates echo- mild reduction of LV function a/p hypoxemic respiratory failure bilateral infiltrates- ?inflammatory, ?infectious- unlikely, has been off zosyn since 12/23 check quant gold, fungal serologies esr/crp, jolie, anca, blood cultures he needs a bronchoscopy or lung biopsy which both he and his are currently refusing I spoke to them at length and explained we do not know why he is worsening but they refuse anything that would require anesthesia Dr Tyler to discuss possible need for intubation/mechanical ventilation with patient and repeat cxray will review
--- NOTE | 2016-12-26 16:13 | EKG ---
Test Reason : Blood Pressure : / mmHG Vent. Rate : 067 BPM Atrial Rate : 067 BPM P-R Int : 196 ms QRS Dur : 092 ms QT Int : 438 ms P-R-T Axes : 012 004 076 degrees QTc Int : 462 ms NORMAL SINUS RHYTHM SEPTAL INFARCT (CITED ON OR BEFORE 05-AUG-2016) INFERIOR INFARCT , AGE UNDETERMINED ABNORMAL ECG WHEN COMPARED WITH ECG OF 21-DEC-2016 14:21, VENT. RATE HAS DECREASED Confirmed by AZIZA HUNG MD ([id number]) on 12/26/2016 4:12:38 PM Referred By: RAFAEL ZUÑIGA Confirmed By:AZIZA HUNG MD
--- NOTE | 2016-12-26 16:13 | PN ---
Progress Note, Physician Chief Complaint: On bipap Tele: sinus with no events History of Present Illness: 81 year old man history of NIDDM, CAD s/p CABG at [facility], BPH, CKD, pneumonia, chronic systolic CHF who was recently admitted at [facility] for PVD and leg ulcer s/p angio complicated by ATN resolved now admitted with sob and hypoxia with volume overload and PNA. No chest pain. no edema. - Current Medication List Current Medications: Active Medications Acetaminophen (Tylenol -) 650 mg PO Q6H PRN PRN Reason: FEVER OR PAIN Last Admin: 12/23/16 21:31 Dose: 650 mg Amino Acids (Prosource No Carb Liquid Pkt) 30 ml PO BID@0800,1730 [facility] Last Admin: 12/26/16 09:20 Dose: 30 ml Arformoterol Tartrate (Brovana (Restricted To Pulmonology/Resp) -) 1 amp NEB BID [facility] Last Admin: 12/26/16 10:15 Dose: 1 amp Ascorbic Acid (Vitamin C -) 250 mg PO BID [facility] Last Admin: 12/26/16 09:22 Dose: 250 mg Aspirin (Ecotrin -) 81 mg PO DAILY [facility] Last Admin: 12/26/16 09:20 Dose: 81 mg Bacitracin (Bacitracin -) 1 applic TP DAILY [facility] Last Admin: 12/26/16 09:20 Dose: 1 applic Clopidogrel Bisulfate (Plavix -) 75 mg PO DAILY [facility] Last Admin: 12/26/16 09:20 Dose: 75 mg Collagenase (Santyl -) 1 applic TP DAILY [facility] Last Admin: 12/26/16 09:21 Dose: Not Given Furosemide (Lasix Injection -) 40 mg IVPB DAILY [facility] Last Admin: 12/26/16 09:20 Dose: 40 mg Guaifenesin (Robitussin Dm -) 10 ml PO Q6H PRN PRN Reason: COUGH Insulin Aspart (Novolog Vial Sliding Scale -) 1 vial SQ ACHS [facility] PRN Reason: Protocol Last Admin: 12/26/16 16:05 Dose: Not Given Insulin Detemir (Levemir Vial) 35 units SQ AM [facility] Last Admin: 12/26/16 07:47 Dose: 35 units Insulin Detemir (Levemir Vial) 15 units SQ HS [facility] Last Admin: 12/25/16 21:58 Dose: 15 units Lidocaine/Aluminum/Magnesium/Simeth (Magic Mouthwash *Sjr Formula* -) 5 ml MM Q6HPO [facility] Last Admin: 12/26/16 12:40 Dose: 5 ml Magnesium Hydroxide (Milk Of Magnesia -) 30 ml PO HS PRN PRN Reason: CONSTIPATION Last Admin: 12/19/16 22:08 Dose: 30 ml Methylprednisolone Sodium Succinate (Solu-Medrol -) 40 mg IVPB Q6H-IV [facility] Last Admin: 12/26/16 09:20 Dose: 40 mg Metoprolol Succinate (Toprol Xl -) 25 mg PO DAILY [facility] Last Admin: 12/26/16 09:20 Dose: 25 mg Multivitamins/Minerals/Vitamin C (Tab-A-Vit -) 1 tab PO DAILY [facility] Last Admin: 12/26/16 09:20 Dose: 1 tab Pantoprazole Sodium (Protonix -) 40 mg PO DAILY [facility] Last Admin: 12/26/16 09:20 Dose: 40 mg Silver Sulfadiazine (Silvadene -) 1 applic TP BID [facility] Last Admin: 12/26/16 09:21 Dose: 1 applic Tamsulosin HCl (Flomax -) 0.4 mg PO DAILY@0830 [facility] Last Admin: 12/26/16 09:20 Dose: 0.4 mg Zinc Sulfate (Orazinc -) 220 mg PO DAILY [facility] Last Admin: 12/26/16 09:20 Dose: 220 mg - Objective Vital Signs: Vital Signs Temperature 98.8 F 12/26/16 15:57 Pulse Rate 64 12/26/16 15:57 Respiratory Rate 28 H 12/26/16 15:57 Blood Pressure 132/64 12/26/16 15:57 O2 Sat by Pulse Oximetry (%) 96 12/26/16 14:27 Constitutional: Yes: Mild Distress Cardiovascular: Yes: Regular Rate and Rhythm, S1, S2. No: JVD, Murmur Respiratory: Yes: CTA Bilaterally Gastrointestinal: Yes: Normal Bowel Sounds, Soft Edema: No Labs: CBC, BMP 12/26/16 05:35 12/26/16 05:35 INR, PTT INR 1.12 (0.82-1.09) 12/16/16 12:00 Problem List - Problems (1) Acute hypoxemic respiratory failure Code(s): J96.01 - ACUTE RESPIRATORY FAILURE WITH HYPOXIA (2) CAD (coronary artery disease) Code(s): I25.10 - ATHSCL HEART DISEASE OF [place] CORONARY ARTERY W/O ANG PCTRS Qualifiers: Associated angina: without angina (3) CHF (congestive heart failure) Code(s): I50.9 - HEART FAILURE, UNSPECIFIED Qualifiers: Congestive heart failure type: systolic Congestive heart failure chronicity: acute on chronic Qualified Code(s): I50.23 - Acute on chronic systolic (congestive) heart failure Assessment/Plan 81 year old man history of NIDDM, CAD s/p CABG at [facility], BPH, CKD, pneumonia, chronic systolic CHF who was recently admitted at [facility] for PVD and leg ulcer s/p angio complicated by ATN resolved now admitted with sob and hypoxia with volume overload and PNA. No chest pain. no edema. 1) Respiratory failure - Does not appear overtly overloaded on physical exam or chest imaging now. SOB and need for bipap likely due to pulmonary issues/possible infectious -Continue cardiac management on aspirin/plavix/metoprolol/and daily furosemide.
--- NOTE | 2016-12-26 16:19 | CONSULT ---
Consult - text type - Consultation Consultation Note: Thoracic Surgery Consultation: Pt seen/examined. Dx: Hypoxic resp failure with CT showing b/l patchy infiltrates. Referred for lung bx. Patient currently refusing biopsy. He believes this is related to prior anesthesia. No h/o chest surgery. May benefit from biopsy but appears to be headed for intubation. 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 I am available should he change his mind. For the time being, he will continue with medical therapy from the Pulmonary team. I have spent ~40 minutes on this consultation with >50% in counseling and coordination of care discussing this with Dr. Tyler, Dr. Esparza, and obtaining the patient's history and reviewing his imaging.
--- NOTE | 2016-12-26 16:48 | PN ---
Progress Note, Physician History of Present Illness: Pt seen and examined at bedside. He complains of increased shortness of breath. He desaturates once bipap is removed. - Current Medication List Current Medications: Active Medications Acetaminophen (Tylenol -) 650 mg PO Q6H PRN PRN Reason: FEVER OR PAIN Last Admin: 12/23/16 21:31 Dose: 650 mg Amino Acids (Prosource No Carb Liquid Pkt) 30 ml PO BID@0800,1730 [facility] Last Admin: 12/26/16 09:20 Dose: 30 ml Arformoterol Tartrate (Brovana (Restricted To Pulmonology/Resp) -) 1 amp NEB BID [facility] Last Admin: 12/26/16 10:15 Dose: 1 amp Ascorbic Acid (Vitamin C -) 250 mg PO BID [facility] Last Admin: 12/26/16 09:22 Dose: 250 mg Aspirin (Ecotrin -) 81 mg PO DAILY [facility] Last Admin: 12/26/16 09:20 Dose: 81 mg Bacitracin (Bacitracin -) 1 applic TP DAILY [facility] Last Admin: 12/26/16 09:20 Dose: 1 applic Clopidogrel Bisulfate (Plavix -) 75 mg PO DAILY [facility] Last Admin: 12/26/16 09:20 Dose: 75 mg Collagenase (Santyl -) 1 applic TP DAILY [facility] Last Admin: 12/26/16 09:21 Dose: Not Given Furosemide (Lasix Injection -) 40 mg IVPB DAILY [facility] Last Admin: 12/26/16 09:20 Dose: 40 mg Guaifenesin (Robitussin Dm -) 10 ml PO Q6H PRN PRN Reason: COUGH Insulin Aspart (Novolog Vial Sliding Scale -) 1 vial SQ ACHS [facility] PRN Reason: Protocol Last Admin: 12/26/16 16:05 Dose: Not Given Insulin Detemir (Levemir Vial) 35 units SQ AM [facility] Last Admin: 12/26/16 07:47 Dose: 35 units Insulin Detemir (Levemir Vial) 15 units SQ HS [facility] Last Admin: 12/25/16 21:58 Dose: 15 units Lidocaine/Aluminum/Magnesium/Simeth (Magic Mouthwash *Sjr Formula* -) 5 ml MM Q6HPO [facility] Last Admin: 12/26/16 12:40 Dose: 5 ml Magnesium Hydroxide (Milk Of Magnesia -) 30 ml PO HS PRN PRN Reason: CONSTIPATION Last Admin: 12/19/16 22:08 Dose: 30 ml Methylprednisolone Sodium Succinate (Solu-Medrol -) 40 mg IVPB Q6H-IV [facility] Last Admin: 12/26/16 09:20 Dose: 40 mg Metoprolol Succinate (Toprol Xl -) 25 mg PO DAILY [facility] Last Admin: 12/26/16 09:20 Dose: 25 mg Multivitamins/Minerals/Vitamin C (Tab-A-Vit -) 1 tab PO DAILY [facility] Last Admin: 12/26/16 09:20 Dose: 1 tab Pantoprazole Sodium (Protonix -) 40 mg PO DAILY [facility] Last Admin: 12/26/16 09:20 Dose: 40 mg Silver Sulfadiazine (Silvadene -) 1 applic TP BID [facility] Last Admin: 12/26/16 09:21 Dose: 1 applic Tamsulosin HCl (Flomax -) 0.4 mg PO DAILY@0830 [facility] Last Admin: 12/26/16 09:20 Dose: 0.4 mg Zinc Sulfate (Orazinc -) 220 mg PO DAILY [facility] Last Admin: 12/26/16 09:20 Dose: 220 mg - Objective Vital Signs: Vital Signs Temperature 98.8 F 12/26/16 15:57 Pulse Rate 64 12/26/16 15:57 Respiratory Rate 28 H 12/26/16 15:57 Blood Pressure 132/64 12/26/16 15:57 O2 Sat by Pulse Oximetry (%) 96 12/26/16 14:27 Constitutional: Yes: Calm Eyes: Yes: Conjunctiva Clear HENT: Yes: Atraumatic Neck: Yes: Supple Cardiovascular: Yes: S1, S2 Respiratory: Yes: On BiPap Gastrointestinal: Yes: Soft Genitourinary: Yes: Incontinence Musculoskeletal: Yes: Muscle Weakness Edema: No Neurological: Yes: Oriented Psychiatric: Yes: Oriented Labs: CBC, BMP 12/26/16 05:35 12/26/16 05:35 INR, PTT INR 1.12 (0.82-1.09) 12/16/16 12:00 - ....Imaging Chest X-ray: Report Reviewed Problem List - Problems (1) Pneumonia Code(s): J18.9 - PNEUMONIA, UNSPECIFIED ORGANISM Qualifiers: Pneumonia type: due to unspecified organism Laterality: bilateral Lung location: unspecified part of lung Qualified Code(s): J18.9 - Pneumonia, unspecified organism (2) Respiratory distress Code(s): R06.00 - DYSPNEA, UNSPECIFIED (3) BPH (benign prostatic hyperplasia) Code(s): N40.0 - BENIGN PROSTATIC HYPERPLASIA WITHOUT LOWER URINRY TRACT SYMP (4) CAD (coronary artery disease) Code(s): I25.10 - ATHSCL HEART DISEASE OF [place] CORONARY ARTERY W/O ANG PCTRS Qualifiers: Associated angina: without angina (5) CHF (congestive heart failure) Code(s): I50.9 - HEART FAILURE, UNSPECIFIED Qualifiers: Congestive heart failure type: systolic Congestive heart failure chronicity: acute on chronic Qualified Code(s): I50.23 - Acute on chronic systolic (congestive) heart failure (6) Diabetes Code(s): E11.9 - TYPE 2 DIABETES MELLITUS WITHOUT COMPLICATIONS Qualifiers: Diabetes mellitus complication status: with other specified complication (7) CKD (chronic kidney disease) Code(s): N18.9 - CHRONIC KIDNEY DISEASE, UNSPECIFIED Qualifiers: Chronic kidney disease stage: stage 3 (moderate) Qualified Code(s): N18.3 - Chronic kidney disease, stage 3 (moderate) Assessment/Plan Current Medications Generic Name Dose Route Start Last Admin Trade Name Freq PRN Reason Stop Dose Admin Acetaminophen 650 mg 12/19/16 20:28 12/23/16 21:31 Tylenol - PO 650 mg Q6H PRN Administration FEVER OR PAIN Amino Acids 30 ml 12/21/16 08:00 12/26/16 09:20 Prosource No Carb Liquid Pkt PO 30 ml BID@0800,1730 [facility] Administration Arformoterol Tartrate 1 amp 12/21/16 11:45 12/26/16 10:15 Brovana (Restricted To Pulmonology/Resp) - NEB 1 amp BID [facility] Administration Ascorbic Acid 250 mg 12/20/16 22:00 12/26/16 09:22 Vitamin C - PO 250 mg BID [facility] Administration Aspirin 81 mg 12/17/16 10:00 12/26/16 09:20 Ecotrin - PO 81 mg DAILY [facility] Administration Bacitracin 1 applic 12/19/16 11:45 12/26/16 09:20 Bacitracin - TP 1 applic DAILY [facility] Administration Clopidogrel Bisulfate 75 mg 12/17/16 10:00 12/26/16 09:20 Plavix - PO 75 mg DAILY [facility] Administration Collagenase 1 applic 12/17/16 10:00 12/26/16 09:21 Santyl - TP Not Given DAILY [facility] Furosemide 40 mg 12/25/16 10:00 12/26/16 09:20 Lasix Injection - IVPB 40 mg DAILY [facility] Administration Guaifenesin 10 ml 12/21/16 11:39 Robitussin Dm - PO Q6H PRN COUGH Insulin Aspart 1 vial 12/16/16 22:00 12/26/16 16:05 Novolog Vial Sliding Scale - SQ Not Given ACHS [facility] Protocol Insulin Detemir 35 units 12/20/16 12:46 12/26/16 07:47 Levemir Vial SQ 35 units AM [facility] Administration Insulin Detemir 15 units 12/21/16 22:00 12/25/16 21:58 Levemir Vial SQ 15 units HS [facility] Administration Lidocaine/Aluminum/Magnesium/Simeth 5 ml 12/21/16 12:00 12/26/16 12:40 Magic Mouthwash *Sjr Formula* - MM 5 ml Q6HPO [facility] Administration Magnesium Hydroxide 30 ml 12/19/16 20:34 12/19/16 22:08 Milk Of Magnesia - PO 30 ml HS PRN Administration CONSTIPATION Methylprednisolone Sodium Succinate 40 mg 12/24/16 15:00 12/26/16 09:20 Solu-Medrol - IVPB 40 mg Q6H-IV [facility] Administration Metoprolol Succinate 25 mg 12/23/16 10:00 12/26/16 09:20 Toprol Xl - PO 25 mg DAILY [facility] Administration Multivitamins/Minerals/Vitamin C 1 tab 12/21/16 10:00 12/26/16 09:20 Tab-A-Vit - PO 1 tab DAILY [facility] Administration Pantoprazole Sodium 40 mg 12/16/16 17:00 12/26/16 09:20 Protonix - PO 40 mg DAILY [facility] Administration Silver Sulfadiazine 1 applic 12/20/16 22:00 12/26/16 09:21 Silvadene - TP 1 applic BID [facility] Administration Tamsulosin HCl 0.4 mg 12/17/16 08:30 12/26/16 09:20 Flomax - PO 0.4 mg DAILY@0830 [facility] Administration Zinc Sulfate 220 mg 12/21/16 10:00 12/26/16 09:20 Orazinc - PO 220 mg DAILY [facility] Administration Laboratory Tests 12/26/16 12:20 KARAN Screen Pending c-ANCA Pending Proteinase 3 (PR3) Pending p-ANCA Pending Atypical p-ANCA Pending Myeloperoxidase Ab Pending Impression 1. CKD 2. hx CVA 3. CAD 4. DM 5. BPH 6. chol 7. PVD 8. s/p angio of the right leg with stenting 9. PNA 10. dyspnea 11. lactic acidosis Plan - cont with IV lasix - cont with Bipap - cxr reviewed - pulmonary follow up - follow up serologies - titrate down steroids as tolerated - discussed plan with pt and Dr Wilson
--- NOTE | 2016-12-26 21:46 | PN ---
Progress Note, Physician Chief Complaint: PATIENT SEEN EARLIER TODAY APPROX 445PM AWAKE ALERT DISCUSSED LUNG BIOPSY AND THE PROCEDURE PATIENT HAS DECLINED BIOPSY. - Current Medication List Current Medications: Active Medications Acetaminophen (Tylenol -) 650 mg PO Q6H PRN PRN Reason: FEVER OR PAIN Last Admin: 12/23/16 21:31 Dose: 650 mg Amino Acids (Prosource No Carb Liquid Pkt) 30 ml PO BID@0800,1730 [facility] Last Admin: 12/26/16 17:11 Dose: 30 ml Arformoterol Tartrate (Brovana (Restricted To Pulmonology/Resp) -) 1 amp NEB BID [facility] Last Admin: 12/26/16 10:15 Dose: 1 amp Ascorbic Acid (Vitamin C -) 250 mg PO BID [facility] Last Admin: 12/26/16 09:22 Dose: 250 mg Aspirin (Ecotrin -) 81 mg PO DAILY [facility] Last Admin: 12/26/16 09:20 Dose: 81 mg Bacitracin (Bacitracin -) 1 applic TP DAILY [facility] Last Admin: 12/26/16 09:20 Dose: 1 applic Clopidogrel Bisulfate (Plavix -) 75 mg PO DAILY [facility] Last Admin: 12/26/16 09:20 Dose: 75 mg Collagenase (Santyl -) 1 applic TP DAILY [facility] Last Admin: 12/26/16 09:21 Dose: Not Given Furosemide (Lasix Injection -) 40 mg IVPB DAILY [facility] Last Admin: 12/26/16 09:20 Dose: 40 mg Guaifenesin (Robitussin Dm -) 10 ml PO Q6H PRN PRN Reason: COUGH Insulin Aspart (Novolog Vial Sliding Scale -) 1 vial SQ ACHS [facility] PRN Reason: Protocol Last Admin: 12/26/16 16:05 Dose: Not Given Insulin Detemir (Levemir Vial) 35 units SQ AM [facility] Last Admin: 12/26/16 07:47 Dose: 35 units Insulin Detemir (Levemir Vial) 15 units SQ HS [facility] Last Admin: 12/25/16 21:58 Dose: 15 units Lidocaine/Aluminum/Magnesium/Simeth (Magic Mouthwash *Sjr Formula* -) 5 ml MM Q6HPO [facility] Last Admin: 12/26/16 17:12 Dose: Not Given Magnesium Hydroxide (Milk Of Magnesia -) 30 ml PO HS PRN PRN Reason: CONSTIPATION Last Admin: 12/19/16 22:08 Dose: 30 ml Methylprednisolone Sodium Succinate (Solu-Medrol -) 40 mg IVPB Q6H-IV [facility] Last Admin: 12/26/16 17:11 Dose: 40 mg Metoprolol Succinate (Toprol Xl -) 25 mg PO DAILY [facility] Last Admin: 12/26/16 09:20 Dose: 25 mg Multivitamins/Minerals/Vitamin C (Tab-A-Vit -) 1 tab PO DAILY [facility] Last Admin: 12/26/16 09:20 Dose: 1 tab Pantoprazole Sodium (Protonix -) 40 mg PO DAILY [facility] Last Admin: 12/26/16 09:20 Dose: 40 mg Silver Sulfadiazine (Silvadene -) 1 applic TP BID [facility] Last Admin: 12/26/16 09:21 Dose: 1 applic Tamsulosin HCl (Flomax -) 0.4 mg PO DAILY@0830 [facility] Last Admin: 12/26/16 09:20 Dose: 0.4 mg Zinc Sulfate (Orazinc -) 220 mg PO DAILY [facility] Last Admin: 12/26/16 09:20 Dose: 220 mg - Objective Vital Signs: Vital Signs Temperature 97.7 F 12/26/16 17:00 Pulse Rate 63 12/26/16 17:00 Respiratory Rate 18 12/26/16 17:00 Blood Pressure 152/66 12/26/16 17:00 O2 Sat by Pulse Oximetry (%) 96 12/26/16 14:27 Constitutional: Yes: Mild Distress Eyes: Yes: WNL HENT: Yes: WNL Neck: Yes: WNL Cardiovascular: Yes: WNL Respiratory: Yes: On Venti-Mask Gastrointestinal: Yes: WNL Genitourinary: Yes: Incontinence Musculoskeletal: Yes: Muscle Weakness Extremities: Yes: Other Edema: No Peripheral Pulses WNL: Yes Integumentary: Yes: WNL Wound/Incision: Yes: Dressing Dry and Intact, Unapproximated Neurological: Yes: Pre-Existing Deficit, Unsteady Gait, Weakness ...Motor Strength: LLE, RLE Psychiatric: Yes: Other Labs: CBC, BMP 12/26/16 05:35 12/26/16 05:35 INR, PTT INR 1.12 (0.82-1.09) 12/16/16 12:00 Problem List - Problems (1) Pneumonia Code(s): J18.9 - PNEUMONIA, UNSPECIFIED ORGANISM Qualifiers: Qualified Code(s): J18.9 - Pneumonia, unspecified organism (2) Microcytic anemia Code(s): D50.9 - IRON DEFICIENCY ANEMIA, UNSPECIFIED (3) UTI (urinary tract infection) Code(s): N39.0 - URINARY TRACT INFECTION, SITE NOT SPECIFIED (4) BPH (benign prostatic hyperplasia) Code(s): N40.0 - BENIGN PROSTATIC HYPERPLASIA WITHOUT LOWER URINRY TRACT SYMP (5) CAD (coronary artery disease) Code(s): I25.10 - ATHSCL HEART DISEASE OF [place] CORONARY ARTERY W/O ANG PCTRS (6) CHF (congestive heart failure) Code(s): I50.9 - HEART FAILURE, UNSPECIFIED Qualifiers: Qualified Code(s): I50.23 - Acute on chronic systolic (congestive) heart failure (7) Diabetes Code(s): E11.9 - TYPE 2 DIABETES MELLITUS WITHOUT COMPLICATIONS (8) Respiratory distress Code(s): R06.00 - DYSPNEA, UNSPECIFIED (9) CKD (chronic kidney disease) Code(s): N18.9 - CHRONIC KIDNEY DISEASE, UNSPECIFIED Qualifiers: Qualified Code(s): N18.3 - Chronic kidney disease, stage 3 (moderate) Assessment/Plan REFUSED LUNG BIOPSY DETAILS OF PROCEDURE HAS BEEN DISCUSSED PATIENT ADAMANT THAT HE DOES NOT WANT TO GO THROUGH [facility]TS LUNG BIOPSY PROCEDURE BECAUSE HE HAS A BAD AFFECT FROM ANESTHESIA?? CONTINUE LASIX IV REPLETE KCL IV AND PO 02 SUPPORT INCENTIVE SPIROMETRY IV ABX PULM AND CARDIO F/U APPRECIATED RENAL EVAL OOB TO CHAIR PT WALKER IN [facility] WHEN READY
[2016-12-26] MEDS ORDERED: PT OWN MED DRAWER 7, Y5N ONE (21:53)
[2016-12-27] MEDS: MAG HYDROX/ALH/SMC/DPHA/LIDO 240 ML MOUTHWASH MM SCH ×4 (00:33→17:22)
[2016-12-27] MEDS: methylPREDNISolone NA SUCC 40 MG/1 ML VIAL IVPB SCH ×4 (02:13→21:48)
[2016-12-27] MEDS ORDERED: PT OWN MED DRAWER 7, Y5N ONE ×3 (06:44→21:35)
[2016-12-27] MEDS: INSULIN DETEMIR 100 UNITS/ML MDV SQ SCH ×2 (06:47→21:48)
[2016-12-27] MEDS: INSULIN SLIDING SCALE (NOVOLOG) 1 VIAL SQ SCH ×4 (06:47→21:49)
[2016-12-27 08:07] LABS: CALCIUM 8.3 mg/dL (8.5-10.1); COCKROFT - GAULT 36.29; CREATININE 1.5 mg/dL (0.7-1.3)
[2016-12-27] MEDS: AMINO ACIDS/PROTEIN HYDROLYS 30 ML LIQUID.PKT PO SCH ×2 (09:41→17:22)
[2016-12-27] MEDS: FUROSEMIDE 40 MG/4 ML INJECTABLE VIAL IVPB SCH (09:41)
[2016-12-27] MEDS: ASCORBIC ACID 250 MG TABLET (FP) PO SCH ×2 (09:41→21:48)
[2016-12-27] MEDS: MULTIVITAMINS (DAILY MVI) TABLET (FP) PO SCH (09:42)
[2016-12-27] MEDS: TAMSULOSIN HCL 0.4 MG CAP.ER.24H (FP) PO SCH (09:43)
[2016-12-27] MEDS: CLOPIDOGREL BISULFATE 75 MG TABLET (FP) PO SCH (09:43)
[2016-12-27] MEDS: PANTOPRAZOLE 40 MG TABLET (FP) PO SCH (09:43)
[2016-12-27] MEDS: ZINC SULFATE 220 MG CAPSULE (FP) PO SCH (09:43)
[2016-12-27] MEDS: METOPROLOL SUCCINATE 25 MG TAB.SR.24H (FP) PO SCH (09:43)
[2016-12-27] MEDS: ASPIRIN COATED 81 MG TABLET.EC PO SCH (09:43)
[2016-12-27] MEDS: BACITRACIN 15 GM TUBE TOPICAL OINTMENT TP SCH (09:44)
[2016-12-27] MEDS: COLLAGENASE CLOSTRIDIUM HIST. 30 GRAMS TUBE TP SCH (09:44)
[2016-12-27] MEDS: SILVER SULFADIAZINE 1% TOP CREAM 50 GM JAR TP SCH ×2 (09:44→21:49)
--- NOTE | 2016-12-27 10:34 | PN ---
Progress Note, Physician History of Present Illness: pulmonary alert,less dyspneic ,on 100%nrm. - Current Medication List Current Medications: Active Medications Acetaminophen (Tylenol -) 650 mg PO Q6H PRN PRN Reason: FEVER OR PAIN Last Admin: 12/23/16 21:31 Dose: 650 mg Amino Acids (Prosource No Carb Liquid Pkt) 30 ml PO BID@0800,1730 [facility] [place] Last Admin: 12/27/16 09:41 Dose: 30 ml Arformoterol Tartrate (Brovana (Restricted To Pulmonology/Resp) -) 1 amp NEB BID [facility] Last Admin: 12/26/16 22:00 Dose: 1 amp Ascorbic Acid (Vitamin C -) 250 mg PO BID [facility] Last Admin: 12/27/16 09:41 Dose: 250 mg Aspirin (Ecotrin -) 81 mg PO DAILY [facility] [place] Last Admin: 12/27/16 09:43 Dose: 81 mg Bacitracin (Bacitracin -) 1 applic TP DAILY [facility] [place] Last Admin: 12/27/16 09:44 Dose: 1 applic Clopidogrel Bisulfate (Plavix -) 75 mg PO DAILY [facility] [place] Last Admin: 12/27/16 09:43 Dose: 75 mg Collagenase (Santyl -) 1 applic TP DAILY [facility] Last Admin: 12/27/16 09:44 Dose: Not Given Furosemide (Lasix Injection -) 40 mg IVPB DAILY [facility] [place] Last Admin: 12/27/16 09:41 Dose: 40 mg Guaifenesin (Robitussin Dm -) 10 ml PO Q6H PRN PRN Reason: COUGH Insulin Aspart (Novolog Vial Sliding Scale -) 1 vial SQ ACHS [facility] [place] PRN Reason: Protocol Last Admin: 12/27/16 06:47 Dose: 4 units Insulin Detemir (Levemir Vial) 35 units SQ AM [facility] Last Admin: 12/27/16 06:47 Dose: 35 units Insulin Detemir (Levemir Vial) 15 units SQ HS [facility] [place] Last Admin: 12/26/16 22:04 Dose: 15 units Lidocaine/Aluminum/Magnesium/Simeth (Magic Mouthwash *Sjr Formula* -) 5 ml MM Q6HPO [facility] Last Admin: 12/27/16 06:47 Dose: 5 ml Magnesium Hydroxide (Milk Of Magnesia -) 30 ml PO HS PRN PRN Reason: CONSTIPATION Last Admin: 12/19/16 22:08 Dose: 30 ml Methylprednisolone Sodium Succinate (Solu-Medrol -) 40 mg IVPB Q6H-IV [facility] [place] Last Admin: 12/27/16 09:41 Dose: 40 mg Metoprolol Succinate (Toprol Xl -) 25 mg PO DAILY [facility] [place] Last Admin: 12/27/16 09:43 Dose: 25 mg Multivitamins/Minerals/Vitamin C (Tab-A-Vit -) 1 tab PO DAILY [facility] [place] Last Admin: 12/27/16 09:42 Dose: 1 tab Pantoprazole Sodium (Protonix -) 40 mg PO DAILY [facility] Last Admin: 12/27/16 09:43 Dose: 40 mg Silver Sulfadiazine (Silvadene -) 1 applic TP BID [facility] Last Admin: 12/27/16 09:44 Dose: 1 applic Tamsulosin HCl (Flomax -) 0.4 mg PO DAILY@0830 [facility] [place] Last Admin: 12/27/16 09:43 Dose: 0.4 mg Zinc Sulfate (Orazinc -) 220 mg PO DAILY [facility] [place] Last Admin: 12/27/16 09:43 Dose: 220 mg - Objective Vital Signs: Vital Signs Temperature 97 F L 12/27/16 07:00 Pulse Rate 60 12/27/16 07:00 Respiratory Rate 20 12/27/16 07:00 Blood Pressure 153/76 12/27/16 07:00 O2 Sat by Pulse Oximetry (%) 92 L 12/27/16 00:40 Constitutional: Yes: Calm, Mild Distress, Thin Eyes: Yes: WNL HENT: Yes: WNL Neck: Yes: WNL Cardiovascular: Yes: Regular Rate and Rhythm, S1, S2 Respiratory: Yes: Rales, Rhonchi (bilateral rales and rhonchi) Gastrointestinal: Yes: Normal Bowel Sounds, Soft Extremities: Yes: WNL Edema: No Labs: CBC, BMP 12/26/16 05:35 12/27/16 05:38 INR, PTT INR 1.12 (0.82-1.09) 12/16/16 12:00 - ....Imaging Chest X-ray: Report Reviewed, Image Reviewed (no change) Problem List - Problems (1) Acute hypoxemic respiratory failure Code(s): J96.01 - ACUTE RESPIRATORY FAILURE WITH HYPOXIA Assessment/Plan Problem List - Problems (1) CKD (chronic kidney disease) Code(s): N18.9 - CHRONIC KIDNEY DISEASE, UNSPECIFIED (2) PAD (peripheral artery disease) Code(s): I73.9 - PERIPHERAL VASCULAR DISEASE, UNSPECIFIED (3) Pneumonia Code(s): J18.9 - PNEUMONIA, UNSPECIFIED ORGANISM Qualifiers: Pneumonia type: due to unspecified organism Laterality: bilateral Lung location: unspecified part of lung Qualified Code(s): J18.9 - Pneumonia, unspecified organism (4) Respiratory distress Code(s): R06.00 - DYSPNEA, UNSPECIFIED (5) Microcytic anemia Code(s): D50.9 - IRON DEFICIENCY ANEMIA, UNSPECIFIED (6) BPH (benign prostatic hyperplasia) Code(s): N40.0 - BENIGN PROSTATIC HYPERPLASIA WITHOUT LOWER URINRY TRACT SYMP (7) CAD (coronary artery disease) Code(s): I25.10 - ATHSCL HEART DISEASE OF [place] CORONARY ARTERY W/O ANG PCTRS Qualifiers: Associated angina: with unspecified angina (8) CHF (congestive heart failure) Code(s): I50.9 - HEART FAILURE, UNSPECIFIED Qualifiers: Congestive heart failure type: systolic Congestive heart failure chronicity: acute on chronic Qualified Code(s): I50.23 - Acute on chronic systolic (congestive) heart failure (9) Diabetes Code(s): E11.9 - TYPE 2 DIABETES MELLITUS WITHOUT COMPLICATIONS Qualifiers: Diabetes mellitus complication status: with other specified complication 10 ACUTE HYPOXEMIC RESPIRATORY FAILURE I1. PNEUMONIA 12 ILD Assessment/Plan O2 to maintain O2sat 90% Bipap Lasix Daily weights I&O BD TX medrol chest x-ray today monitor renal function jolie,rf c-anca,p-anca, esr,crp Dr Tyler
[2016-12-27] MEDS: ARFORMOTEROL TARTRATE 15 MCG/2 ML VIAL NEB SCH ×2 (10:35→22:30)
--- NOTE | 2016-12-27 12:01 | PN ---
Progress Note (short form) - Note Progress Note: d/w Dr Tyler yesterday plan for duplex to r/o DVT he wore his bipap last night and got some sleep now on ventimask feels more comfortable repeat cxray done yesterday ?some improvement Vital Signs Period Temp Pulse Resp BP Sys/Blanca Pulse Ox Last 24 Hr 96.6 F-98.8 F 60-65 17-28 122-153/60-76 90-96 cor-rrr lungs clear abd soft,nt ext no edema CBC, BMP 12/26/16 05:35 12/27/16 05:38 Laboratory Tests 12/26/16 12/26/16 12:20 12:20 ESR 74 H C-Reactive Protein 6.3 H blood cultures pending a/p hypoxemic respiratory failure -continue steroids, f/u duplex studies, f/u serologies bilateral infiltrates- ?inflammatory, ?infectious- unlikely, has been off zosyn since 12/23 he needs a bronchoscopy or lung biopsy which both he and his are currently refusing I spoke to them at length and explained we do not know why he is worsening but they refuse anything that would require anesthesia Dr Tyler to discuss possible need for intubation/mechanical ventilation with patient and d/w patient he consents to HIV testing, will order
[2016-12-27 13:18] LABS: HIV 1 & 2 AB NEGATIVE; HIV 1 AGp24 NEGATIVE
--- NOTE | 2016-12-27 14:03 | PN ---
Progress Note, Physician History of Present Illness: Pt seen and examined at bedside. He is using a non rebreather at the moment. He still needs the bipap. He does not feel much improvement in breathing. - Current Medication List Current Medications: Active Medications Acetaminophen (Tylenol -) 650 mg PO Q6H PRN PRN Reason: FEVER OR PAIN Last Admin: 12/23/16 21:31 Dose: 650 mg Amino Acids (Prosource No Carb Liquid Pkt) 30 ml PO BID@0800,1730 [facility] Last Admin: 12/27/16 09:41 Dose: 30 ml Arformoterol Tartrate (Brovana (Restricted To Pulmonology/Resp) -) 1 amp NEB BID [facility] Last Admin: 12/27/16 10:35 Dose: 1 amp Ascorbic Acid (Vitamin C -) 250 mg PO BID [facility] Last Admin: 12/27/16 09:41 Dose: 250 mg Aspirin (Ecotrin -) 81 mg PO DAILY [facility] Last Admin: 12/27/16 09:43 Dose: 81 mg Bacitracin (Bacitracin -) 1 applic TP DAILY [facility] Last Admin: 12/27/16 09:44 Dose: 1 applic Clopidogrel Bisulfate (Plavix -) 75 mg PO DAILY [facility] Last Admin: 12/27/16 09:43 Dose: 75 mg Collagenase (Santyl -) 1 applic TP DAILY [facility] Last Admin: 12/27/16 09:44 Dose: Not Given Furosemide (Lasix Injection -) 40 mg IVPB DAILY [facility] Last Admin: 12/27/16 09:41 Dose: 40 mg Guaifenesin (Robitussin Dm -) 10 ml PO Q6H PRN PRN Reason: COUGH Insulin Aspart (Novolog Vial Sliding Scale -) 1 vial SQ ACHS [facility] PRN Reason: Protocol Last Admin: 12/27/16 06:47 Dose: 4 units Insulin Detemir (Levemir Vial) 35 units SQ AM [facility] Last Admin: 12/27/16 06:47 Dose: 35 units Insulin Detemir (Levemir Vial) 15 units SQ HS [facility] Last Admin: 12/26/16 22:04 Dose: 15 units Lidocaine/Aluminum/Magnesium/Simeth (Magic Mouthwash *Sjr Formula* -) 5 ml MM Q6HPO [facility] Last Admin: 12/27/16 06:47 Dose: 5 ml Magnesium Hydroxide (Milk Of Magnesia -) 30 ml PO HS PRN PRN Reason: CONSTIPATION Last Admin: 12/19/16 22:08 Dose: 30 ml Methylprednisolone Sodium Succinate (Solu-Medrol -) 40 mg IVPB Q6H-IV [facility] Last Admin: 12/27/16 09:41 Dose: 40 mg Metoprolol Succinate (Toprol Xl -) 25 mg PO DAILY [facility] Last Admin: 12/27/16 09:43 Dose: 25 mg Multivitamins/Minerals/Vitamin C (Tab-A-Vit -) 1 tab PO DAILY [facility] Last Admin: 12/27/16 09:42 Dose: 1 tab Pantoprazole Sodium (Protonix -) 40 mg PO DAILY [facility] Last Admin: 12/27/16 09:43 Dose: 40 mg Silver Sulfadiazine (Silvadene -) 1 applic TP BID [facility] Last Admin: 12/27/16 09:44 Dose: 1 applic Tamsulosin HCl (Flomax -) 0.4 mg PO DAILY@0830 [facility] Last Admin: 12/27/16 09:43 Dose: 0.4 mg Zinc Sulfate (Orazinc -) 220 mg PO DAILY [facility] Last Admin: 12/27/16 09:43 Dose: 220 mg - Objective Vital Signs: Vital Signs Temperature 97.3 F L 12/27/16 10:00 Pulse Rate 65 12/27/16 10:50 Respiratory Rate 17 12/27/16 10:00 Blood Pressure 122/60 12/27/16 10:00 O2 Sat by Pulse Oximetry (%) 90 L 12/27/16 10:50 Constitutional: Yes: Calm Eyes: Yes: Conjunctiva Clear HENT: Yes: Atraumatic Neck: Yes: Supple Cardiovascular: Yes: S1, S2 Respiratory: Yes: On Venti-Mask, Rhonchi Gastrointestinal: Yes: Soft Genitourinary: Yes: Incontinence Musculoskeletal: Yes: Muscle Weakness Edema: No Neurological: Yes: Oriented Psychiatric: Yes: Oriented Labs: CBC, BMP 12/26/16 05:35 12/27/16 05:38 INR, PTT INR 1.12 (0.82-1.09) 12/16/16 12:00 Problem List - Problems (1) Pneumonia Code(s): J18.9 - PNEUMONIA, UNSPECIFIED ORGANISM Qualifiers: Qualified Code(s): J18.9 - Pneumonia, unspecified organism (2) Respiratory distress Code(s): R06.00 - DYSPNEA, UNSPECIFIED (3) BPH (benign prostatic hyperplasia) Code(s): N40.0 - BENIGN PROSTATIC HYPERPLASIA WITHOUT LOWER URINRY TRACT SYMP (4) CAD (coronary artery disease) Code(s): I25.10 - ATHSCL HEART DISEASE OF [place] CORONARY ARTERY W/O ANG PCTRS (5) CHF (congestive heart failure) Code(s): I50.9 - HEART FAILURE, UNSPECIFIED Qualifiers: Qualified Code(s): I50.23 - Acute on chronic systolic (congestive) heart failure (6) Diabetes Code(s): E11.9 - TYPE 2 DIABETES MELLITUS WITHOUT COMPLICATIONS (7) CKD (chronic kidney disease) Code(s): N18.9 - CHRONIC KIDNEY DISEASE, UNSPECIFIED Qualifiers: Qualified Code(s): N18.3 - Chronic kidney disease, stage 3 (moderate) Assessment/Plan Current Medications Generic Name Dose Route Start Last Admin Trade Name Freq PRN Reason Stop Dose Admin Acetaminophen 650 mg 12/19/16 20:28 12/23/16 21:31 Tylenol - PO 650 mg Q6H PRN Administration FEVER OR PAIN Amino Acids 30 ml 12/21/16 08:00 12/27/16 09:41 Prosource No Carb Liquid Pkt PO 30 ml BID@0800,1730 [facility] Administration Arformoterol Tartrate 1 amp 12/21/16 11:45 12/27/16 10:35 Brovana (Restricted To Pulmonology/Resp) - NEB 1 amp BID [facility] Administration Ascorbic Acid 250 mg 12/20/16 22:00 12/27/16 09:41 Vitamin C - PO 250 mg BID [facility] Administration Aspirin 81 mg 12/17/16 10:00 12/27/16 09:43 Ecotrin - PO 81 mg DAILY [facility] Administration Bacitracin 1 applic 12/19/16 11:45 12/27/16 09:44 Bacitracin - TP 1 applic DAILY [facility] Administration Clopidogrel Bisulfate 75 mg 12/17/16 10:00 12/27/16 09:43 Plavix - PO 75 mg DAILY [facility] Administration Collagenase 1 applic 12/17/16 10:00 12/27/16 09:44 Santyl - TP Not Given DAILY [facility] Furosemide 40 mg 12/25/16 10:00 12/27/16 09:41 Lasix Injection - IVPB 40 mg DAILY [facility] Administration Guaifenesin 10 ml 12/21/16 11:39 Robitussin Dm - PO Q6H PRN COUGH Insulin Aspart 1 vial 12/16/16 22:00 12/27/16 06:47 Novolog Vial Sliding Scale - SQ 4 units ACHS [facility] Administration Protocol Insulin Detemir 35 units 12/20/16 12:46 12/27/16 06:47 Levemir Vial SQ 35 units AM [facility] Administration Insulin Detemir 15 units 12/21/16 22:00 12/26/16 22:04 Levemir Vial SQ 15 units HS [facility] Administration Lidocaine/Aluminum/Magnesium/Simeth 5 ml 12/21/16 12:00 12/27/16 06:47 Magic Mouthwash *Sjr Formula* - MM 5 ml Q6HPO [facility] Administration Magnesium Hydroxide 30 ml 12/19/16 20:34 12/19/16 22:08 Milk Of Magnesia - PO 30 ml HS PRN Administration CONSTIPATION Methylprednisolone Sodium Succinate 40 mg 12/24/16 15:00 12/27/16 09:41 Solu-Medrol - IVPB 40 mg Q6H-IV [facility] Administration Metoprolol Succinate 25 mg 12/23/16 10:00 12/27/16 09:43 Toprol Xl - PO 25 mg DAILY [facility] Administration Multivitamins/Minerals/Vitamin C 1 tab 12/21/16 10:00 12/27/16 09:42 Tab-A-Vit - PO 1 tab DAILY [facility] Administration Pantoprazole Sodium 40 mg 12/16/16 17:00 12/27/16 09:43 Protonix - PO 40 mg DAILY [facility] Administration Silver Sulfadiazine 1 applic 12/20/16 22:00 12/27/16 09:44 Silvadene - TP 1 applic BID [facility] Administration Tamsulosin HCl 0.4 mg 12/17/16 08:30 12/27/16 09:43 Flomax - PO 0.4 mg DAILY@0830 [facility] Administration Zinc Sulfate 220 mg 12/21/16 10:00 12/27/16 09:43 Orazinc - PO 220 mg DAILY [facility] Administration Laboratory Tests 12/26/16 12/26/16 12/26/16 12:20 12:20 12:20 KARAN Screen Pending c-ANCA Pending Proteinase 3 (PR3) Pending p-ANCA Pending Atypical p-ANCA Pending Myeloperoxidase Ab Pending Coccidioides G,A,M Ab HIV 1&2 Antibody Screen HIV P24 Antigen A. galactomannan Ag Pending Beta-(1,3)-D-Glucan Pending 12/26/16 12/27/16 12:20 12:25 KARAN Screen c-ANCA Proteinase 3 (PR3) p-ANCA Atypical p-ANCA Myeloperoxidase Ab Coccidioides G,A,M Ab Pending HIV 1&2 Antibody Screen Negative HIV P24 Antigen Negative A. galactomannan Ag Beta-(1,3)-D-Glucan Impression 1. CKD 2. hx CVA 3. CAD 4. DM 5. BPH 6. chol 7. PVD 8. s/p angio of the right leg with stenting 9. PNA 10. dyspnea 11. lactic acidosis Plan - cont with steroids - serologic workup pending - monitor bloodwork - cxr reviewed - discussed with pts - cont with lasix at current dose Dr Wilson
--- NOTE | 2016-12-27 14:47 | PN ---
Progress Note, Physician Chief Complaint: Feels less sob than yesterday On NRB tele: sinus History of Present Illness: 81 year old man history of NIDDM, CAD s/p CABG at [facility], BPH, CKD, pneumonia, chronic systolic CHF who was recently admitted at [facility] for PVD and leg ulcer s/p angio complicated by ATN resolved now admitted with sob and hypoxia with volume overload and PNA. No chest pain. no edema. - Current Medication List Current Medications: Active Medications Acetaminophen (Tylenol -) 650 mg PO Q6H PRN PRN Reason: FEVER OR PAIN Last Admin: 12/23/16 21:31 Dose: 650 mg Amino Acids (Prosource No Carb Liquid Pkt) 30 ml PO BID@0800,1730 [facility] Last Admin: 12/27/16 09:41 Dose: 30 ml Arformoterol Tartrate (Brovana (Restricted To Pulmonology/Resp) -) 1 amp NEB BID [facility] Last Admin: 12/27/16 10:35 Dose: 1 amp Ascorbic Acid (Vitamin C -) 250 mg PO BID [facility] Last Admin: 12/27/16 09:41 Dose: 250 mg Aspirin (Ecotrin -) 81 mg PO DAILY [facility] Last Admin: 12/27/16 09:43 Dose: 81 mg Bacitracin (Bacitracin -) 1 applic TP DAILY [facility] Last Admin: 12/27/16 09:44 Dose: 1 applic Clopidogrel Bisulfate (Plavix -) 75 mg PO DAILY [facility] Last Admin: 12/27/16 09:43 Dose: 75 mg Collagenase (Santyl -) 1 applic TP DAILY [facility] Last Admin: 12/27/16 09:44 Dose: Not Given Furosemide (Lasix Injection -) 40 mg IVPB DAILY [facility] Last Admin: 12/27/16 09:41 Dose: 40 mg Guaifenesin (Robitussin Dm -) 10 ml PO Q6H PRN PRN Reason: COUGH Insulin Aspart (Novolog Vial Sliding Scale -) 1 vial SQ ACHS [facility] PRN Reason: Protocol Last Admin: 12/27/16 06:47 Dose: 4 units Insulin Detemir (Levemir Vial) 35 units SQ AM [facility] Last Admin: 12/27/16 06:47 Dose: 35 units Insulin Detemir (Levemir Vial) 15 units SQ HS [facility] Last Admin: 12/26/16 22:04 Dose: 15 units Lidocaine/Aluminum/Magnesium/Simeth (Magic Mouthwash *Sjr Formula* -) 5 ml MM Q6HPO [facility] Last Admin: 12/27/16 06:47 Dose: 5 ml Magnesium Hydroxide (Milk Of Magnesia -) 30 ml PO HS PRN PRN Reason: CONSTIPATION Last Admin: 12/19/16 22:08 Dose: 30 ml Methylprednisolone Sodium Succinate (Solu-Medrol -) 40 mg IVPB Q6H-IV [facility] Last Admin: 12/27/16 09:41 Dose: 40 mg Metoprolol Succinate (Toprol Xl -) 25 mg PO DAILY [facility] Last Admin: 12/27/16 09:43 Dose: 25 mg Multivitamins/Minerals/Vitamin C (Tab-A-Vit -) 1 tab PO DAILY [facility] Last Admin: 12/27/16 09:42 Dose: 1 tab Pantoprazole Sodium (Protonix -) 40 mg PO DAILY [facility] Last Admin: 12/27/16 09:43 Dose: 40 mg Silver Sulfadiazine (Silvadene -) 1 applic TP BID [facility] Last Admin: 12/27/16 09:44 Dose: 1 applic Tamsulosin HCl (Flomax -) 0.4 mg PO DAILY@0830 [facility] Last Admin: 12/27/16 09:43 Dose: 0.4 mg Zinc Sulfate (Orazinc -) 220 mg PO DAILY [facility] Last Admin: 12/27/16 09:43 Dose: 220 mg - Objective Vital Signs: Vital Signs Temperature 97.3 F L 12/27/16 10:00 Pulse Rate 65 12/27/16 10:50 Respiratory Rate 17 12/27/16 10:00 Blood Pressure 122/60 12/27/16 10:00 O2 Sat by Pulse Oximetry (%) 90 L 12/27/16 10:50 Constitutional: Yes: No Distress Cardiovascular: Yes: Regular Rate and Rhythm, S1, S2. No: JVD, Murmur Respiratory: Yes: Rhonchi (left base) Gastrointestinal: Yes: Normal Bowel Sounds, Soft Edema: No Labs: CBC, BMP 12/26/16 05:35 12/27/16 05:38 INR, PTT INR 1.12 (0.82-1.09) 12/16/16 12:00 Problem List - Problems (1) Acute hypoxemic respiratory failure Code(s): J96.01 - ACUTE RESPIRATORY FAILURE WITH HYPOXIA (2) CAD (coronary artery disease) Code(s): I25.10 - ATHSCL HEART DISEASE OF [place] CORONARY ARTERY W/O ANG PCTRS (3) CHF (congestive heart failure) Code(s): I50.9 - HEART FAILURE, UNSPECIFIED Qualifiers: Qualified Code(s): I50.23 - Acute on chronic systolic (congestive) heart failure Assessment/Plan 81 year old man history of NIDDM, CAD s/p CABG at [facility], BPH, CKD, pneumonia, chronic systolic CHF who was recently admitted at [facility] for PVD and leg ulcer s/p angio complicated by ATN resolved now admitted with sob and hypoxia with volume overload and PNA. No chest pain. no edema. 1) Respiratory failure - Does not appear overtly overloaded on physical exam or chest imaging now. SOB likely due to pulmonary issues/possible infectious -Continue cardiac management on aspirin/plavix/metoprolol/and daily furosemide ( would change diuretic to PO). Will sign off at this time. Please call with any questions or clinical concerns
--- NOTE | 2016-12-27 16:15 | PN ---
Progress Note, Physician Chief Complaint: awake alert bedside discussed for 30 mins case and reviewed results - Current Medication List Current Medications: Active Medications Acetaminophen (Tylenol -) 650 mg PO Q6H PRN PRN Reason: FEVER OR PAIN Last Admin: 12/23/16 21:31 Dose: 650 mg Amino Acids (Prosource No Carb Liquid Pkt) 30 ml PO BID@0800,1730 [facility] Last Admin: 12/27/16 09:41 Dose: 30 ml Arformoterol Tartrate (Brovana (Restricted To Pulmonology/Resp) -) 1 amp NEB BID [facility] Last Admin: 12/27/16 10:35 Dose: 1 amp Ascorbic Acid (Vitamin C -) 250 mg PO BID [facility] Last Admin: 12/27/16 09:41 Dose: 250 mg Aspirin (Ecotrin -) 81 mg PO DAILY [facility] Last Admin: 12/27/16 09:43 Dose: 81 mg Bacitracin (Bacitracin -) 1 applic TP DAILY [facility] Last Admin: 12/27/16 09:44 Dose: 1 applic Clopidogrel Bisulfate (Plavix -) 75 mg PO DAILY [facility] Last Admin: 12/27/16 09:43 Dose: 75 mg Collagenase (Santyl -) 1 applic TP DAILY [facility] Last Admin: 12/27/16 09:44 Dose: Not Given Furosemide (Lasix Injection -) 40 mg IVPB DAILY [facility] Last Admin: 12/27/16 09:41 Dose: 40 mg Guaifenesin (Robitussin Dm -) 10 ml PO Q6H PRN PRN Reason: COUGH Insulin Aspart (Novolog Vial Sliding Scale -) 1 vial SQ ACHS [facility] PRN Reason: Protocol Last Admin: 12/27/16 12:00 Dose: 8 units Insulin Detemir (Levemir Vial) 35 units SQ AM [facility] Last Admin: 12/27/16 06:47 Dose: 35 units Insulin Detemir (Levemir Vial) 15 units SQ HS [facility] Last Admin: 12/26/16 22:04 Dose: 15 units Lidocaine/Aluminum/Magnesium/Simeth (Magic Mouthwash *Sjr Formula* -) 5 ml MM Q6HPO [facility] Last Admin: 12/27/16 15:18 Dose: Not Given Magnesium Hydroxide (Milk Of Magnesia -) 30 ml PO HS PRN PRN Reason: CONSTIPATION Last Admin: 12/19/16 22:08 Dose: 30 ml Methylprednisolone Sodium Succinate (Solu-Medrol -) 40 mg IVPB Q6H-IV [facility] Last Admin: 12/27/16 15:18 Dose: 40 mg Metoprolol Succinate (Toprol Xl -) 25 mg PO DAILY [facility] Last Admin: 12/27/16 09:43 Dose: 25 mg Multivitamins/Minerals/Vitamin C (Tab-A-Vit -) 1 tab PO DAILY [facility] Last Admin: 12/27/16 09:42 Dose: 1 tab Pantoprazole Sodium (Protonix -) 40 mg PO DAILY [facility] Last Admin: 12/27/16 09:43 Dose: 40 mg Silver Sulfadiazine (Silvadene -) 1 applic TP BID [facility] Last Admin: 12/27/16 09:44 Dose: 1 applic Tamsulosin HCl (Flomax -) 0.4 mg PO DAILY@0830 [facility] Last Admin: 12/27/16 09:43 Dose: 0.4 mg Zinc Sulfate (Orazinc -) 220 mg PO DAILY [facility] Last Admin: 12/27/16 09:43 Dose: 220 mg - Objective Vital Signs: Vital Signs Temperature 97.5 F L 12/27/16 15:00 Pulse Rate 68 12/27/16 15:00 Respiratory Rate 18 12/27/16 15:00 Blood Pressure 119/77 12/27/16 15:00 O2 Sat by Pulse Oximetry (%) 90 L 12/27/16 10:50 Constitutional: Yes: Moderate Distress Eyes: Yes: WNL HENT: Yes: WNL Neck: Yes: WNL Cardiovascular: Yes: WNL Respiratory: Yes: On Venti-Mask, Poor Air Entry Gastrointestinal: Yes: WNL Genitourinary: Yes: WNL Musculoskeletal: Yes: Muscle Weakness Extremities: Yes: WNL Edema: No Peripheral Pulses WNL: Yes Integumentary: Yes: WNL, Erythema Wound/Incision: Yes: Dressing Dry and Intact Neurological: Yes: Weakness ...Motor Strength: LLE, RLE Psychiatric: Yes: WNL Labs: CBC, BMP 12/26/16 05:35 12/27/16 05:38 INR, PTT INR 1.12 (0.82-1.09) 12/16/16 12:00 Problem List - Problems (1) Pneumonia Code(s): J18.9 - PNEUMONIA, UNSPECIFIED ORGANISM Qualifiers: Qualified Code(s): J18.9 - Pneumonia, unspecified organism (2) Microcytic anemia Code(s): D50.9 - IRON DEFICIENCY ANEMIA, UNSPECIFIED (3) UTI (urinary tract infection) Code(s): N39.0 - URINARY TRACT INFECTION, SITE NOT SPECIFIED (4) BPH (benign prostatic hyperplasia) Code(s): N40.0 - BENIGN PROSTATIC HYPERPLASIA WITHOUT LOWER URINRY TRACT SYMP (5) CAD (coronary artery disease) Code(s): I25.10 - ATHSCL HEART DISEASE OF [place] CORONARY ARTERY W/O ANG PCTRS (6) CHF (congestive heart failure) Code(s): I50.9 - HEART FAILURE, UNSPECIFIED Qualifiers: Qualified Code(s): I50.23 - Acute on chronic systolic (congestive) heart failure (7) Diabetes Code(s): E11.9 - TYPE 2 DIABETES MELLITUS WITHOUT COMPLICATIONS (8) Respiratory distress Code(s): R06.00 - DYSPNEA, UNSPECIFIED (9) CKD (chronic kidney disease) Code(s): N18.9 - CHRONIC KIDNEY DISEASE, UNSPECIFIED Qualifiers: Qualified Code(s): N18.3 - Chronic kidney disease, stage 3 (moderate) Assessment/Plan STILL REFUSING LUNG BIOPSY PATIENT AND BOTH FEAR ANESTHESIA COMPLICATIONS IV STEROIDS 02 SUPPORT HIV TESTING OOB TO CHAIR INCENTIVE SPIROMETRY BIPAP AT NIGHT RENAL FUNCTION IMPROVED
[2016-12-27] MEDS ORDERED: ACETYLCYSTEINE 20% 200MG/ML 30 ML VIAL *FOR ORAL / INH USE ONLY NEB SCH ×2 (16:30)
[2016-12-27] MEDS: ALBUTEROL SO4 0.083% IH SOL 2.5 MG/3 ML VIAL.NEB. NEB SCH (16:45)
[2016-12-27] MEDS: ACETYLCYSTEINE 20% 200MG/ML 30 ML VIAL *FOR ORAL / INH USE ONLY NEB SCH (16:45)
[2016-12-27] MEDS: guaiFENesin/D-METHORPHAN HB 1 EACH TAB.ER.12H PO SCH (21:49)
[2016-12-28] MEDS: ALBUTEROL SO4 0.083% IH SOL 2.5 MG/3 ML VIAL.NEB. NEB SCH ×4 (00:07→17:07)
[2016-12-28] MEDS: ACETYLCYSTEINE 20% 200MG/ML 30 ML VIAL *FOR ORAL / INH USE ONLY NEB SCH ×2 (00:07→06:35)
[2016-12-28] MEDS: MAG HYDROX/ALH/SMC/DPHA/LIDO 240 ML MOUTHWASH MM SCH ×4 (00:15→17:19)
[2016-12-28] MEDS: methylPREDNISolone NA SUCC 40 MG/1 ML VIAL IVPB SCH ×4 (03:00→21:35)
[2016-12-28] MEDS: INSULIN SLIDING SCALE (NOVOLOG) 1 VIAL SQ SCH ×4 (06:44→21:36)
[2016-12-28] MEDS: INSULIN DETEMIR 100 UNITS/ML MDV SQ SCH ×2 (06:47→21:35)
[2016-12-28] MEDS: MULTIVITAMINS (DAILY MVI) TABLET (FP) PO SCH (09:53)
[2016-12-28] MEDS: FUROSEMIDE 40 MG/4 ML INJECTABLE VIAL IVPB SCH (09:53)
[2016-12-28] MEDS: ZINC SULFATE 220 MG CAPSULE (FP) PO SCH (09:53)
[2016-12-28] MEDS: PANTOPRAZOLE 40 MG TABLET (FP) PO SCH (09:53)
[2016-12-28] MEDS: CLOPIDOGREL BISULFATE 75 MG TABLET (FP) PO SCH (09:53)
[2016-12-28] MEDS: ASPIRIN COATED 81 MG TABLET.EC PO SCH (09:53)
[2016-12-28] MEDS: ASCORBIC ACID 250 MG TABLET (FP) PO SCH ×2 (09:54→21:31)
[2016-12-28] MEDS: AMINO ACIDS/PROTEIN HYDROLYS 30 ML LIQUID.PKT PO SCH ×2 (09:54→17:20)
[2016-12-28] MEDS: guaiFENesin/D-METHORPHAN HB 1 EACH TAB.ER.12H PO SCH ×2 (09:55→21:36)
[2016-12-28] MEDS: SILVER SULFADIAZINE 1% TOP CREAM 50 GM JAR TP SCH ×2 (09:57→21:35)
--- NOTE | 2016-12-28 10:15 | PN ---
Progress Note, Physician Chief Complaint: AWAKE ALERT DISCUSSING TRANSFER TO [facility] WITH FAMILY FOR BRONCHOSCOPY AND BIOPSY WITH FURTHER PULMONARY WORKUP. - Current Medication List Current Medications: Active Medications Acetaminophen (Tylenol -) 650 mg PO Q6H PRN PRN Reason: FEVER OR PAIN Last Admin: 12/23/16 21:31 Dose: 650 mg Acetylcysteine (Mucomyst 20 Oral / Inh Use Only*) 200 mg NEB QIDR [facility] Last Admin: 12/28/16 06:35 Dose: Not Given Albuterol Sulfate (Ventolin 0.083% Nebulizer Soln -) 1 amp NEB QIDR [facility] Last Admin: 12/28/16 06:35 Dose: Not Given Amino Acids (Prosource No Carb Liquid Pkt) 30 ml PO BID@0800,1730 [facility] Last Admin: 12/27/16 17:22 Dose: 30 ml Arformoterol Tartrate (Brovana (Restricted To Pulmonology/Resp) -) 1 amp NEB BID [facility] Last Admin: 12/27/16 22:30 Dose: Not Given Ascorbic Acid (Vitamin C -) 250 mg PO BID [facility] Last Admin: 12/27/16 21:48 Dose: 250 mg Aspirin (Ecotrin -) 81 mg PO DAILY [facility] Last Admin: 12/27/16 09:43 Dose: 81 mg Bacitracin (Bacitracin -) 1 applic TP DAILY [facility] Last Admin: 12/27/16 09:44 Dose: 1 applic Clopidogrel Bisulfate (Plavix -) 75 mg PO DAILY [facility] Last Admin: 12/27/16 09:43 Dose: 75 mg Collagenase (Santyl -) 1 applic TP DAILY [facility] Last Admin: 12/27/16 09:44 Dose: Not Given Furosemide (Lasix Injection -) 40 mg IVPB DAILY [facility] Last Admin: 12/27/16 09:41 Dose: 40 mg Guaifenesin (Robitussin Dm -) 10 ml PO Q6H PRN PRN Reason: COUGH Guaifenesin (Mucinex Dm -) 1 tablet PO BID [facility] Last Admin: 12/27/16 21:49 Dose: 1 tablet Insulin Aspart (Novolog Vial Sliding Scale -) 1 vial SQ ACHS [facility] PRN Reason: Protocol Last Admin: 12/28/16 06:44 Dose: Not Given Insulin Detemir (Levemir Vial) 35 units SQ AM [facility] Last Admin: 12/28/16 06:47 Dose: 35 units Insulin Detemir (Levemir Vial) 15 units SQ HS [facility] Last Admin: 12/27/16 21:48 Dose: 15 units Lidocaine/Aluminum/Magnesium/Simeth (Magic Mouthwash *Sjr Formula* -) 5 ml MM Q6HPO [facility] Last Admin: 12/28/16 06:48 Dose: Not Given Magnesium Hydroxide (Milk Of Magnesia -) 30 ml PO HS PRN PRN Reason: CONSTIPATION Last Admin: 12/19/16 22:08 Dose: 30 ml Methylprednisolone Sodium Succinate (Solu-Medrol -) 40 mg IVPB Q6H-IV [facility] Last Admin: 12/28/16 03:00 Dose: 40 mg Metoprolol Succinate (Toprol Xl -) 25 mg PO DAILY [facility] Last Admin: 12/27/16 09:43 Dose: 25 mg Multivitamins/Minerals/Vitamin C (Tab-A-Vit -) 1 tab PO DAILY [facility] Last Admin: 12/27/16 09:42 Dose: 1 tab Pantoprazole Sodium (Protonix -) 40 mg PO DAILY [facility] Last Admin: 12/27/16 09:43 Dose: 40 mg Silver Sulfadiazine (Silvadene -) 1 applic TP BID [facility] Last Admin: 12/27/16 21:49 Dose: 1 applic Tamsulosin HCl (Flomax -) 0.4 mg PO DAILY@0830 [facility] Last Admin: 12/27/16 09:43 Dose: 0.4 mg Zinc Sulfate (Orazinc -) 220 mg PO DAILY [facility] Last Admin: 12/27/16 09:43 Dose: 220 mg - Objective Vital Signs: Vital Signs Temperature 98.2 F 12/28/16 08:00 Pulse Rate 58 L 12/28/16 08:00 Respiratory Rate 22 12/28/16 08:00 Blood Pressure 138/58 12/28/16 08:00 O2 Sat by Pulse Oximetry (%) 99 12/27/16 22:30 Constitutional: Yes: Mild Distress Eyes: Yes: WNL HENT: Yes: WNL Neck: Yes: WNL Cardiovascular: Yes: Murmur Respiratory: Yes: Cough, On Venti-Mask, Poor Air Entry, Rhonchi Gastrointestinal: Yes: WNL Genitourinary: Yes: Incontinence Musculoskeletal: Yes: Muscle Weakness Extremities: Yes: WNL Edema: No Peripheral Pulses WNL: Yes Integumentary: Yes: WNL Wound/Incision: Yes: Clean/Dry Neurological: Yes: Other ...Motor Strength: LLE, RLE Psychiatric: Yes: WNL Labs: CBC, BMP 12/26/16 05:35 12/27/16 05:38 INR, PTT INR 1.12 (0.82-1.09) 12/16/16 12:00 Problem List - Problems (1) Pneumonia Code(s): J18.9 - PNEUMONIA, UNSPECIFIED ORGANISM Qualifiers: Qualified Code(s): J18.9 - Pneumonia, unspecified organism (2) Microcytic anemia Code(s): D50.9 - IRON DEFICIENCY ANEMIA, UNSPECIFIED (3) UTI (urinary tract infection) Code(s): N39.0 - URINARY TRACT INFECTION, SITE NOT SPECIFIED (4) BPH (benign prostatic hyperplasia) Code(s): N40.0 - BENIGN PROSTATIC HYPERPLASIA WITHOUT LOWER URINRY TRACT SYMP (5) CAD (coronary artery disease) Code(s): I25.10 - ATHSCL HEART DISEASE OF [place] CORONARY ARTERY W/O ANG PCTRS (6) CHF (congestive heart failure) Code(s): I50.9 - HEART FAILURE, UNSPECIFIED Qualifiers: Qualified Code(s): I50.23 - Acute on chronic systolic (congestive) heart failure (7) Diabetes Code(s): E11.9 - TYPE 2 DIABETES MELLITUS WITHOUT COMPLICATIONS (8) Respiratory distress Code(s): R06.00 - DYSPNEA, UNSPECIFIED (9) CKD (chronic kidney disease) Code(s): N18.9 - CHRONIC KIDNEY DISEASE, UNSPECIFIED Qualifiers: Qualified Code(s): N18.3 - Chronic kidney disease, stage 3 (moderate) Assessment/Plan FAMILY WOULD LIKE ALL FURTHER LUNG WORKUP DONE AT [facility] I DISCUSSED WITH DR WEBSTER FROM [facility] CARD[facility]Y TO TRANSFER PATIENT FOR BRONCHOSCOPY AND BIOPSY. CONTINUE 02 SUPPORT STEROIDS IV NEBS MUCOMYST DVT PROPHYLAXIS
[2016-12-28] MEDS: ARFORMOTEROL TARTRATE 15 MCG/2 ML VIAL NEB SCH ×2 (10:25→22:31)
[2016-12-28] MEDS: TAMSULOSIN HCL 0.4 MG CAP.ER.24H (FP) PO SCH (10:25)
[2016-12-28] MEDS: METOPROLOL SUCCINATE 25 MG TAB.SR.24H (FP) PO SCH (10:25)
[2016-12-28] MEDS: COLLAGENASE CLOSTRIDIUM HIST. 30 GRAMS TUBE TP SCH (10:29)
[2016-12-28] MEDS: BACITRACIN 15 GM TUBE TOPICAL OINTMENT TP SCH (10:30)
[2016-12-28] MEDS ORDERED: ACETYLCYSTEINE 20% 200MG/ML 4 ML VIAL *FOR ORAL / INH USE ONLY NEB SCH (10:30)
--- NOTE | 2016-12-28 11:23 | PN ---
Progress Note (short form) - Note Progress Note: clinically unchanged remains hypoxic requiring either bipap or ventimask d/w Dr Dailey- family requesting transfer to tertiary [facility] Vital Signs Period Temp Pulse Resp BP Sys/Blanca Pulse Ox Last 24 Hr 96.5 F-98.2 F 58-68 18-28 119-151/54-77 93-99 cor-rrr lungs decreased bs at bases, crackles at bases abd soft,nt ext no edema CBC, BMP 12/26/16 05:35 12/27/16 05:38 Laboratory Tests 12/26/16 12/26/16 12:20 12:20 ESR 74 H C-Reactive Protein 6.3 H blood cultures negative hiv negative jolie screen negative legionella antigen negative duplex of legs negative for DVT a/p hypoxemic respiratory failure -continue steroids, f/u serologies bilateral infiltrates- ?inflammatory, ?infectious- unlikely, has been off zosyn since 12/23 he received 7 days of zosyn and zithromax at [facility] prior to discharge 12/14, he was started on prednisone there for ILD also Amiodarone was stopped- could this be amiodarone toxicity? repeat sputum cultures he needs a bronchoscopy or lung biopsy which both he and his are currently refusing I spoke to them at length and explained we do not know why he is worsening but they refuse anything that would require anesthesia d/w Dr Dailey for transfer to [facility]
--- NOTE | 2016-12-28 11:28 | PN ---
Progress Note, Physician History of Present Illness: Pt seen and examined at bedside. He is awake and alert. He remain on oxygen. - Current Medication List Current Medications: Active Medications Acetaminophen (Tylenol -) 650 mg PO Q6H PRN PRN Reason: FEVER OR PAIN Last Admin: 12/23/16 21:31 Dose: 650 mg Albuterol Sulfate (Ventolin 0.083% Nebulizer Soln -) 1 amp NEB QIDR [facility] Last Admin: 12/28/16 06:35 Dose: Not Given Amino Acids (Prosource No Carb Liquid Pkt) 30 ml PO BID@0800,1730 [facility] Last Admin: 12/28/16 09:54 Dose: 30 ml Arformoterol Tartrate (Brovana (Restricted To Pulmonology/Resp) -) 1 amp NEB BID [facility] Last Admin: 12/27/16 22:30 Dose: Not Given Ascorbic Acid (Vitamin C -) 250 mg PO BID [facility] Last Admin: 12/28/16 09:54 Dose: 250 mg Aspirin (Ecotrin -) 81 mg PO DAILY [facility] Last Admin: 12/28/16 09:53 Dose: 81 mg Bacitracin (Bacitracin -) 1 applic TP DAILY [facility] Last Admin: 12/28/16 10:30 Dose: Not Given Clopidogrel Bisulfate (Plavix -) 75 mg PO DAILY [facility] Last Admin: 12/28/16 09:53 Dose: 75 mg Collagenase (Santyl -) 1 applic TP DAILY [facility] Last Admin: 12/28/16 10:29 Dose: Not Given Furosemide (Lasix Injection -) 40 mg IVPB DAILY [facility] Last Admin: 12/28/16 09:53 Dose: 40 mg Guaifenesin (Robitussin Dm -) 10 ml PO Q6H PRN PRN Reason: COUGH Guaifenesin (Mucinex Dm -) 1 tablet PO BID [facility] Last Admin: 12/28/16 09:55 Dose: 1 tablet Insulin Aspart (Novolog Vial Sliding Scale -) 1 vial SQ ACHS [facility] PRN Reason: Protocol Last Admin: 12/28/16 06:44 Dose: Not Given Insulin Detemir (Levemir Vial) 35 units SQ AM [facility] Last Admin: 12/28/16 06:47 Dose: 35 units Insulin Detemir (Levemir Vial) 15 units SQ HS [facility] Last Admin: 12/27/16 21:48 Dose: 15 units Lidocaine/Aluminum/Magnesium/Simeth (Magic Mouthwash *Sjr Formula* -) 5 ml MM Q6HPO [facility] Last Admin: 12/28/16 06:48 Dose: Not Given Magnesium Hydroxide (Milk Of Magnesia -) 30 ml PO HS PRN PRN Reason: CONSTIPATION Last Admin: 12/19/16 22:08 Dose: 30 ml Methylprednisolone Sodium Succinate (Solu-Medrol -) 40 mg IVPB Q6H-IV [facility] Last Admin: 12/28/16 09:53 Dose: 40 mg Metoprolol Succinate (Toprol Xl -) 25 mg PO DAILY [facility] Last Admin: 12/28/16 10:25 Dose: Not Given Multivitamins/Minerals/Vitamin C (Tab-A-Vit -) 1 tab PO DAILY [facility] Last Admin: 12/28/16 09:53 Dose: 1 tab Pantoprazole Sodium (Protonix -) 40 mg PO DAILY [facility] Last Admin: 12/28/16 09:53 Dose: 40 mg Silver Sulfadiazine (Silvadene -) 1 applic TP BID [facility] Last Admin: 12/28/16 09:57 Dose: 1 applic Tamsulosin HCl (Flomax -) 0.4 mg PO DAILY@0830 [facility] Last Admin: 12/28/16 10:25 Dose: Not Given Zinc Sulfate (Orazinc -) 220 mg PO DAILY [facility] Last Admin: 12/28/16 09:53 Dose: 220 mg - Objective Vital Signs: Vital Signs Temperature 98.2 F 12/28/16 08:00 Pulse Rate 58 L 12/28/16 08:00 Respiratory Rate 22 12/28/16 08:00 Blood Pressure 138/58 12/28/16 08:00 O2 Sat by Pulse Oximetry (%) 99 12/27/16 22:30 Constitutional: Yes: Calm Eyes: Yes: Conjunctiva Clear HENT: Yes: Atraumatic Neck: Yes: Supple Cardiovascular: Yes: S1, S2 Respiratory: Yes: On Venti-Mask, Rhonchi Gastrointestinal: Yes: Soft Genitourinary: Yes: Incontinence Musculoskeletal: Yes: Muscle Weakness Edema: No Neurological: Yes: Oriented Psychiatric: Yes: Oriented Labs: CBC, BMP 12/26/16 05:35 12/27/16 05:38 INR, PTT INR 1.12 (0.82-1.09) 12/16/16 12:00 Problem List - Problems (1) Pneumonia Code(s): J18.9 - PNEUMONIA, UNSPECIFIED ORGANISM Qualifiers: Qualified Code(s): J18.9 - Pneumonia, unspecified organism (2) Respiratory distress Code(s): R06.00 - DYSPNEA, UNSPECIFIED (3) BPH (benign prostatic hyperplasia) Code(s): N40.0 - BENIGN PROSTATIC HYPERPLASIA WITHOUT LOWER URINRY TRACT SYMP (4) CAD (coronary artery disease) Code(s): I25.10 - ATHSCL HEART DISEASE OF [place] CORONARY ARTERY W/O ANG PCTRS (5) CHF (congestive heart failure) Code(s): I50.9 - HEART FAILURE, UNSPECIFIED Qualifiers: Qualified Code(s): I50.23 - Acute on chronic systolic (congestive) heart failure (6) Diabetes Code(s): E11.9 - TYPE 2 DIABETES MELLITUS WITHOUT COMPLICATIONS (7) CKD (chronic kidney disease) Code(s): N18.9 - CHRONIC KIDNEY DISEASE, UNSPECIFIED Qualifiers: Qualified Code(s): N18.3 - Chronic kidney disease, stage 3 (moderate) Assessment/Plan Current Medications Generic Name Dose Route Start Last Admin Trade Name Freq PRN Reason Stop Dose Admin Acetaminophen 650 mg 12/19/16 20:28 12/23/16 21:31 Tylenol - PO 650 mg Q6H PRN Administration FEVER OR PAIN Albuterol Sulfate 1 amp 12/27/16 16:30 12/28/16 06:35 Ventolin 0.083% Nebulizer Soln - NEB Not Given QIDR [facility] Amino Acids 30 ml 12/21/16 08:00 12/28/16 09:54 Prosource No Carb Liquid Pkt PO 30 ml BID@0800,1730 [facility] Administration Arformoterol Tartrate 1 amp 12/21/16 11:45 12/27/16 22:30 Brovana (Restricted To Pulmonology/Resp) - NEB Not Given BID [facility] Ascorbic Acid 250 mg 12/20/16 22:00 12/28/16 09:54 Vitamin C - PO 250 mg BID [facility] Administration Aspirin 81 mg 12/17/16 10:00 12/28/16 09:53 Ecotrin - PO 81 mg DAILY [facility] Administration Bacitracin 1 applic 12/19/16 11:45 12/28/16 10:30 Bacitracin - TP Not Given DAILY [facility] Clopidogrel Bisulfate 75 mg 12/17/16 10:00 12/28/16 09:53 Plavix - PO 75 mg DAILY [facility] Administration Collagenase 1 applic 12/17/16 10:00 12/28/16 10:29 Santyl - TP Not Given DAILY [facility] Furosemide 40 mg 12/25/16 10:00 12/28/16 09:53 Lasix Injection - IVPB 40 mg DAILY [facility] Administration Guaifenesin 10 ml 12/21/16 11:39 Robitussin Dm - PO Q6H PRN COUGH Guaifenesin 1 tablet 12/27/16 22:00 12/28/16 09:55 Mucinex Dm - PO 1 tablet BID [facility] Administration Insulin Aspart 1 vial 12/16/16 22:00 12/28/16 06:44 Novolog Vial Sliding Scale - SQ Not Given ACHS [facility] Protocol Insulin Detemir 35 units 12/20/16 12:46 12/28/16 06:47 Levemir Vial SQ 35 units AM [facility] Administration Insulin Detemir 15 units 12/21/16 22:00 12/27/16 21:48 Levemir Vial SQ 15 units HS [facility] Administration Lidocaine/Aluminum/Magnesium/Simeth 5 ml 12/21/16 12:00 12/28/16 06:48 Magic Mouthwash *Sjr Formula* - MM Not Given Q6HPO [facility] Magnesium Hydroxide 30 ml 12/19/16 20:34 12/19/16 22:08 Milk Of Magnesia - PO 30 ml HS PRN Administration CONSTIPATION Methylprednisolone Sodium Succinate 40 mg 12/24/16 15:00 12/28/16 09:53 Solu-Medrol - IVPB 40 mg Q6H-IV [facility] Administration Metoprolol Succinate 25 mg 12/23/16 10:00 12/28/16 10:25 Toprol Xl - PO Not Given DAILY [facility] Multivitamins/Minerals/Vitamin C 1 tab 12/21/16 10:00 12/28/16 09:53 Tab-A-Vit - PO 1 tab DAILY [facility] Administration Pantoprazole Sodium 40 mg 12/16/16 17:00 12/28/16 09:53 Protonix - PO 40 mg DAILY [facility] Administration Silver Sulfadiazine 1 applic 12/20/16 22:00 12/28/16 09:57 Silvadene - TP 1 applic BID [facility] Administration Tamsulosin HCl 0.4 mg 12/17/16 08:30 12/28/16 10:25 Flomax - PO Not Given DAILY@0830 [facility] Zinc Sulfate 220 mg 12/21/16 10:00 12/28/16 09:53 Orazinc - PO 220 mg DAILY [facility] Administration Laboratory Tests 12/26/16 12:20 JOLIE Screen Negative c-ANCA Pending Proteinase 3 (PR3) Pending p-ANCA Pending Atypical p-ANCA Pending Myeloperoxidase Ab Pending Impression 1. CKD 2. hx CVA 3. CAD 4. DM 5. BPH 6. chol 7. PVD 8. s/p angio of the right leg with stenting 9. PNA 10. dyspnea 11. lactic acidosis Plan - jolie negative - no bmp today, he does not want bloodwork every day - pt to be transferred to a tertiary care facility - cont with steroids - serologic workup pending - discussed with pts - cont with lasix at current dose - discussed with PMD Dr Wilson
--- NOTE | 2016-12-28 11:36 | PN ---
Progress Note, Physician History of Present Illness: PULMONARY ALERT,HYPOXIC,ON 100% ALT WITH BIPAP - Current Medication List Current Medications: Active Medications Acetaminophen (Tylenol -) 650 mg PO Q6H PRN PRN Reason: FEVER OR PAIN Last Admin: 12/23/16 21:31 Dose: 650 mg Albuterol Sulfate (Ventolin 0.083% Nebulizer Soln -) 1 amp NEB QIDR [facility] Last Admin: 12/28/16 06:35 Dose: Not Given Amino Acids (Prosource No Carb Liquid Pkt) 30 ml PO BID@0800,1730 [facility] Last Admin: 12/28/16 09:54 Dose: 30 ml Arformoterol Tartrate (Brovana (Restricted To Pulmonology/Resp) -) 1 amp NEB BID [facility] Last Admin: 12/27/16 22:30 Dose: Not Given Ascorbic Acid (Vitamin C -) 250 mg PO BID [facility] Last Admin: 12/28/16 09:54 Dose: 250 mg Aspirin (Ecotrin -) 81 mg PO DAILY [facility] Last Admin: 12/28/16 09:53 Dose: 81 mg Bacitracin (Bacitracin -) 1 applic TP DAILY [facility] Last Admin: 12/28/16 10:30 Dose: Not Given Clopidogrel Bisulfate (Plavix -) 75 mg PO DAILY [facility] Last Admin: 12/28/16 09:53 Dose: 75 mg Collagenase (Santyl -) 1 applic TP DAILY [facility] Last Admin: 12/28/16 10:29 Dose: Not Given Furosemide (Lasix Injection -) 40 mg IVPB DAILY [facility] Last Admin: 12/28/16 09:53 Dose: 40 mg Guaifenesin (Robitussin Dm -) 10 ml PO Q6H PRN PRN Reason: COUGH Guaifenesin (Mucinex Dm -) 1 tablet PO BID [facility] Last Admin: 12/28/16 09:55 Dose: 1 tablet Insulin Aspart (Novolog Vial Sliding Scale -) 1 vial SQ ACHS [facility] PRN Reason: Protocol Last Admin: 12/28/16 06:44 Dose: Not Given Insulin Detemir (Levemir Vial) 35 units SQ AM [facility] Last Admin: 12/28/16 06:47 Dose: 35 units Insulin Detemir (Levemir Vial) 15 units SQ HS [facility] Last Admin: 12/27/16 21:48 Dose: 15 units Lidocaine/Aluminum/Magnesium/Simeth (Magic Mouthwash *Sjr Formula* -) 5 ml MM Q6HPO [facility] Last Admin: 12/28/16 06:48 Dose: Not Given Magnesium Hydroxide (Milk Of Magnesia -) 30 ml PO HS PRN PRN Reason: CONSTIPATION Last Admin: 12/19/16 22:08 Dose: 30 ml Methylprednisolone Sodium Succinate (Solu-Medrol -) 40 mg IVPB Q6H-IV [facility] Last Admin: 12/28/16 09:53 Dose: 40 mg Metoprolol Succinate (Toprol Xl -) 25 mg PO DAILY [facility] Last Admin: 12/28/16 10:25 Dose: Not Given Multivitamins/Minerals/Vitamin C (Tab-A-Vit -) 1 tab PO DAILY [facility] Last Admin: 12/28/16 09:53 Dose: 1 tab Pantoprazole Sodium (Protonix -) 40 mg PO DAILY [facility] Last Admin: 12/28/16 09:53 Dose: 40 mg Silver Sulfadiazine (Silvadene -) 1 applic TP BID [facility] Last Admin: 12/28/16 09:57 Dose: 1 applic Tamsulosin HCl (Flomax -) 0.4 mg PO DAILY@0830 [facility] Last Admin: 12/28/16 10:25 Dose: Not Given Zinc Sulfate (Orazinc -) 220 mg PO DAILY [facility] Last Admin: 12/28/16 09:53 Dose: 220 mg - Objective Vital Signs: Vital Signs Temperature 98.2 F 12/28/16 08:00 Pulse Rate 58 L 12/28/16 08:00 Respiratory Rate 22 12/28/16 08:00 Blood Pressure 138/58 12/28/16 08:00 O2 Sat by Pulse Oximetry (%) 99 12/27/16 22:30 Constitutional: Yes: Calm, Thin Eyes: Yes: WNL HENT: Yes: WNL, Tonsillar Exudate Cardiovascular: Yes: Regular Rate and Rhythm, S1, S2 Respiratory: Yes: Rales (BILATERAL CRACKLES) Gastrointestinal: Yes: Normal Bowel Sounds, Soft Extremities: Yes: WNL Edema: No Labs: CBC, BMP 12/26/16 05:35 12/27/16 05:38 INR, PTT INR 1.12 (0.82-1.09) 12/16/16 12:00 Problem List - Problems (1) Acute hypoxemic respiratory failure Code(s): J96.01 - ACUTE RESPIRATORY FAILURE WITH HYPOXIA Assessment/Plan Problem List - Problems (1) CKD (chronic kidney disease) Code(s): N18.9 - CHRONIC KIDNEY DISEASE, UNSPECIFIED (2) PAD (peripheral artery disease) Code(s): I73.9 - PERIPHERAL VASCULAR DISEASE, UNSPECIFIED (3) Pneumonia Code(s): J18.9 - PNEUMONIA, UNSPECIFIED ORGANISM Qualifiers: Pneumonia type: due to unspecified organism Laterality: bilateral Lung location: unspecified part of lung Qualified Code(s): J18.9 - Pneumonia, unspecified organism (4) Respiratory distress Code(s): R06.00 - DYSPNEA, UNSPECIFIED (5) Microcytic anemia Code(s): D50.9 - IRON DEFICIENCY ANEMIA, UNSPECIFIED (6) BPH (benign prostatic hyperplasia) Code(s): N40.0 - BENIGN PROSTATIC HYPERPLASIA WITHOUT LOWER URINRY TRACT SYMP (7) CAD (coronary artery disease) Code(s): I25.10 - ATHSCL HEART DISEASE OF [place] CORONARY ARTERY W/O ANG PCTRS Qualifiers: Associated angina: with unspecified angina (8) CHF (congestive heart failure) Code(s): I50.9 - HEART FAILURE, UNSPECIFIED Qualifiers: Congestive heart failure type: systolic Congestive heart failure chronicity: acute on chronic Qualified Code(s): I50.23 - Acute on chronic systolic (congestive) heart failure (9) Diabetes Code(s): E11.9 - TYPE 2 DIABETES MELLITUS WITHOUT COMPLICATIONS Qualifiers: Diabetes mellitus complication status: with other specified complication 10 ACUTE HYPOXEMIC RESPIRATORY FAILURE I1. PNEUMONIA 12 ILD Assessment/Plan O2 to maintain O2sat 90% Bipap Lasix Daily weights I&O BD TX medrol monitor renal function family wants pt transferred [place] for further w/u,lung bx,bronch Dr Tyler
[2016-12-28] MEDS ORDERED: LEVOFLOXACIN 500 MG IVPB 100 ML IVPB ONE (16:30)
[2016-12-29 00:08] LABS: C-ANCA <1:20 titer (Neg:<1:20); MYELOPEROXIDASE ANTIBODY <9.0 U/mL (0.0-9.0); P-ANCA <1:20 titer (Neg:<1:20); PROTEINASE-3 ANTIBODY <3.5 U/mL (0.0-3.5)
[2016-12-29] MEDS: MAG HYDROX/ALH/SMC/DPHA/LIDO 240 ML MOUTHWASH MM SCH ×4 (00:30→17:21)
[2016-12-29] MEDS: methylPREDNISolone NA SUCC 40 MG/1 ML VIAL IVPB SCH ×4 (04:03→21:28)
[2016-12-29] MEDS: INSULIN SLIDING SCALE (NOVOLOG) 1 VIAL SQ SCH ×4 (06:14→21:28)
[2016-12-29] MEDS: INSULIN DETEMIR 100 UNITS/ML MDV SQ SCH ×2 (06:14→21:28)
[2016-12-29 07:09] LABS: BASOPHIL 0.2 % (0-2.0); MCH 29.8 pg (25.7-33.7); MCHC 33.1 g/dl (32.0-35.9); MEAN PLT VOLUME 8.2 fl (7.5-11.1); NEUTROPHILS 92.7 % (42.8-82.8); PLATELET COUNT 256 K/MM3 (134-434); WHITE BLOOD COUNT 17.3 K/mm3 (4.0-10.0)
[2016-12-29 07:36] LABS: ALBUMIN 2.3 g/dl (3.4-5.0); BILIRUBIN,TOTAL 0.7 mg/dL (0.2-1.0); CALCIUM 8.3 mg/dL (8.5-10.1); COCKROFT - GAULT 41.87; CREATININE 1.3 mg/dL (0.7-1.3); TOT PROT 5.8 g/dl (6.4-8.2)
[2016-12-29] MEDS ORDERED: PT OWN MED DRAWER 7, Y5N ONE (09:24)
[2016-12-29] MEDS: FUROSEMIDE 40 MG/4 ML INJECTABLE VIAL IVPB SCH (09:32)
[2016-12-29] MEDS: METOPROLOL SUCCINATE 25 MG TAB.SR.24H (FP) PO SCH (09:33)
[2016-12-29] MEDS: CLOPIDOGREL BISULFATE 75 MG TABLET (FP) PO SCH (09:33)
[2016-12-29] MEDS: ZINC SULFATE 220 MG CAPSULE (FP) PO SCH (09:33)
[2016-12-29] MEDS: MULTIVITAMINS (DAILY MVI) TABLET (FP) PO SCH (09:33)
[2016-12-29] MEDS: ASPIRIN COATED 81 MG TABLET.EC PO SCH (09:33)
[2016-12-29] MEDS: PANTOPRAZOLE 40 MG TABLET (FP) PO SCH (09:33)
[2016-12-29] MEDS: TAMSULOSIN HCL 0.4 MG CAP.ER.24H (FP) PO SCH (09:33)
[2016-12-29] MEDS: ASCORBIC ACID 250 MG TABLET (FP) PO SCH ×2 (09:34→21:29)
[2016-12-29] MEDS: AMINO ACIDS/PROTEIN HYDROLYS 30 ML LIQUID.PKT PO SCH ×2 (09:35→17:21)
[2016-12-29] MEDS: COLLAGENASE CLOSTRIDIUM HIST. 30 GRAMS TUBE TP SCH (09:36)
[2016-12-29] MEDS: guaiFENesin/D-METHORPHAN HB 1 EACH TAB.ER.12H PO SCH ×2 (09:36→21:28)
[2016-12-29] MEDS: BACITRACIN 15 GM TUBE TOPICAL OINTMENT TP SCH (09:36)
[2016-12-29] MEDS: SILVER SULFADIAZINE 1% TOP CREAM 50 GM JAR TP SCH ×2 (09:36→21:29)
[2016-12-29] MEDS: ARFORMOTEROL TARTRATE 15 MCG/2 ML VIAL NEB SCH ×2 (09:55→22:39)
[2016-12-29] MEDS ORDERED: LEVOFLOXACIN 250 MG IVPB 50 ML IVPB SCH ×2 (10:00)
--- NOTE | 2016-12-29 10:35 | EKG ---
Test Reason : Blood Pressure : / mmHG Vent. Rate : 060 BPM Atrial Rate : 060 BPM P-R Int : 182 ms QRS Dur : 094 ms QT Int : 452 ms P-R-T Axes : -03 -19 089 degrees QTc Int : 452 ms NORMAL SINUS RHYTHM INFERIOR INFARCT (CITED ON OR BEFORE 26-DEC-2016) ANTEROLATERAL INFARCT (CITED ON OR BEFORE 16-DEC-2016) ABNORMAL ECG WHEN COMPARED WITH ECG OF 26-DEC-2016 12:43, QUESTIONABLE CHANGE IN INITIAL FORCES OF ANTEROSEPTAL LEADS Confirmed by FUAD SUN MD ([id number]) on 12/29/2016 10:34:36 AM Referred By: SERG Confirmed By:FUAD SUN MD
[2016-12-29] MEDS: ALBUTEROL SO4 0.083% IH SOL 2.5 MG/3 ML VIAL.NEB. NEB SCH ×2 (11:20→17:31)
--- NOTE | 2016-12-29 11:50 | PN ---
Progress Note, Physician Chief Complaint: ID Remains dyspneic and quite weak HE is off all antimicrobials He is on Solumedrol 40 q 6 H - Current Medication List Current Medications: Active Medications Acetaminophen (Tylenol -) 650 mg PO Q6H PRN PRN Reason: FEVER OR PAIN Last Admin: 12/23/16 21:31 Dose: 650 mg Albuterol Sulfate (Ventolin 0.083% Nebulizer Soln -) 1 amp NEB QIDR [facility] Last Admin: 12/29/16 11:20 Dose: Not Given Amino Acids (Prosource No Carb Liquid Pkt) 30 ml PO BID@0800,1730 [facility] Last Admin: 12/29/16 09:35 Dose: 30 ml Arformoterol Tartrate (Brovana (Restricted To Pulmonology/Resp) -) 1 amp NEB BID [facility] Last Admin: 12/29/16 09:55 Dose: 1 amp Ascorbic Acid (Vitamin C -) 250 mg PO BID [facility] Last Admin: 12/29/16 09:34 Dose: 250 mg Aspirin (Ecotrin -) 81 mg PO DAILY [facility] Last Admin: 12/29/16 09:33 Dose: 81 mg Bacitracin (Bacitracin -) 1 applic TP DAILY [facility] Last Admin: 12/29/16 09:36 Dose: Not Given Clopidogrel Bisulfate (Plavix -) 75 mg PO DAILY [facility] Last Admin: 12/29/16 09:33 Dose: 75 mg Collagenase (Santyl -) 1 applic TP DAILY [facility] Last Admin: 12/29/16 09:36 Dose: Not Given Furosemide (Lasix Injection -) 40 mg IVPB DAILY [facility] Last Admin: 12/29/16 09:32 Dose: 40 mg Guaifenesin (Robitussin Dm -) 10 ml PO Q6H PRN PRN Reason: COUGH Guaifenesin (Mucinex Dm -) 1 tablet PO BID [facility] Last Admin: 12/29/16 09:36 Dose: 1 tablet Insulin Aspart (Novolog Vial Sliding Scale -) 1 vial SQ ACHS [facility] PRN Reason: Protocol Last Admin: 12/29/16 06:14 Dose: Not Given Insulin Detemir (Levemir Vial) 35 units SQ AM [facility] Last Admin: 12/29/16 06:14 Dose: Not Given Insulin Detemir (Levemir Vial) 15 units SQ HS [facility] Last Admin: 12/28/16 21:35 Dose: 15 units Lidocaine/Aluminum/Magnesium/Simeth (Magic Mouthwash *Sjr Formula* -) 5 ml MM Q6HPO [facility] Last Admin: 12/29/16 05:52 Dose: Not Given Magnesium Hydroxide (Milk Of Magnesia -) 30 ml PO HS PRN PRN Reason: CONSTIPATION Last Admin: 12/19/16 22:08 Dose: 30 ml Methylprednisolone Sodium Succinate (Solu-Medrol -) 40 mg IVPB Q6H-IV [facility] Last Admin: 12/29/16 09:32 Dose: 40 mg Metoprolol Succinate (Toprol Xl -) 25 mg PO DAILY [facility] Last Admin: 12/29/16 09:33 Dose: Not Given Multivitamins/Minerals/Vitamin C (Tab-A-Vit -) 1 tab PO DAILY [facility] Last Admin: 12/29/16 09:33 Dose: 1 tab Pantoprazole Sodium (Protonix -) 40 mg PO DAILY [facility] Last Admin: 12/29/16 09:33 Dose: 40 mg Silver Sulfadiazine (Silvadene -) 1 applic TP BID [facility] Last Admin: 12/29/16 09:36 Dose: 1 applic Tamsulosin HCl (Flomax -) 0.4 mg PO DAILY@0830 [facility] Last Admin: 12/29/16 09:33 Dose: Not Given Zinc Sulfate (Orazinc -) 220 mg PO DAILY [facility] Last Admin: 12/29/16 09:33 Dose: 220 mg - Objective Vital Signs: Vital Signs Temperature 98.2 F 12/29/16 08:05 Pulse Rate 70 12/29/16 09:45 Respiratory Rate 20 12/29/16 08:05 Blood Pressure 152/70 12/29/16 08:05 O2 Sat by Pulse Oximetry (%) 94 L 12/29/16 11:17 Constitutional: Yes: Moderate Distress Neck: Yes: WNL, Supple Cardiovascular: Yes: Regular Rate and Rhythm, Murmur, S1, S2 Respiratory: Yes: WNL, Regular, CTA Bilaterally. No: Rales, Rhonchi Gastrointestinal: Yes: WNL, Normal Bowel Sounds, Soft. No: Tenderness, Tenderness, Epigastrium Extremities: No: Cold, Cool, Cyanosis Edema: No Labs: CBC, BMP 12/29/16 05:35 12/29/16 05:35 INR, PTT INR 1.12 (0.82-1.09) 12/16/16 12:00 Assessment/Plan Microbiology 12/26/16 13:12 Blood - Peripheral Venous Blood Culture - Preliminary NO GROWTH OBTAINED AFTER 48 HOURS, INCUBATION TO CONTINUE FOR 3 DAYS. 12/26/16 13:10 Blood - Peripheral Venous Blood Culture - Preliminary NO GROWTH OBTAINED AFTER 48 HOURS, INCUBATION TO CONTINUE FOR 3 DAYS. 12/26/16 12:20 Serum Cryptococcal Antigen - Preliminary 12/26/16 12:20 Blood - Peripheral Venous TB Test (QFT) ([facility]) - Preliminary Laboratory Tests 12/26/16 12/26/16 12/26/16 12:20 12:20 12:20 WBC Hgb Hct Plt Count ESR 74 H BUN Creatinine Creat Clearance w eGFR Total Bilirubin AST Coccidioides G,A,M Ab HIV 1&2 Antibody Screen HIV P24 Antigen A. galactomannan Ag Pending Beta-(1,3)-D-Glucan Pending 12/26/16 12/27/16 12/29/16 12:20 12:25 05:35 WBC 17.3 H Hgb 11.5 L Hct 34.7 L Plt Count 256 ESR BUN Creatinine Creat Clearance w eGFR Total Bilirubin AST Coccidioides G,A,M Ab Pending HIV 1&2 Antibody Screen Negative HIV P24 Antigen Negative A. galactomannan Ag Beta-(1,3)-D-Glucan 12/29/16 05:35 WBC Hgb Hct Plt Count ESR BUN 76 H Creatinine 1.3 Creat Clearance w eGFR 52.85 Total Bilirubin 0.7 D AST 26 Coccidioides G,A,M Ab HIV 1&2 Antibody Screen HIV P24 Antigen A. galactomannan Ag Beta-(1,3)-D-Glucan Assessment Diffuse interstitial lung disease etiology unclear Severe hypoxemia Plan Would likely not tolerate lung biopsy Steroids Await serology but more likely noninfectious etiology Jose CABELLO
--- NOTE | 2016-12-29 14:21 | PN ---
Progress Note (short form) - Note Progress Note: PULMONARY Remains dependent on BiPAP with 100% FiO2. Desaturates quickly off BiPAP even on NRB with minimal movements. Denies fevers, chills. No cough or wheezing. Last Vital Signs Temp Pulse Resp BP Pulse Ox 98.2 F 70 20 152/70 93 L 12/29/16 08:05 12/29/16 09:45 12/29/16 08:05 12/29/16 08:05 12/29/16 14:13 Gen: tachypenic on BiPAP Heart: RRR Lung: bilateral rales, rhonchi Abd: soft, nontender Ext: no edema CBC, BMP 12/29/16 05:35 12/29/16 05:35 Active Medications Acetaminophen (Tylenol -) 650 mg PO Q6H PRN PRN Reason: FEVER OR PAIN Last Admin: 12/23/16 21:31 Dose: 650 mg Albuterol Sulfate (Ventolin 0.083% Nebulizer Soln -) 1 amp NEB QIDR [facility] Last Admin: 12/29/16 11:20 Dose: Not Given Amino Acids (Prosource No Carb Liquid Pkt) 30 ml PO BID@0800,1730 [facility] Last Admin: 12/29/16 09:35 Dose: 30 ml Arformoterol Tartrate (Brovana (Restricted To Pulmonology/Resp) -) 1 amp NEB BID [facility] Last Admin: 12/29/16 09:55 Dose: 1 amp Ascorbic Acid (Vitamin C -) 250 mg PO BID [facility] Last Admin: 12/29/16 09:34 Dose: 250 mg Aspirin (Ecotrin -) 81 mg PO DAILY [facility] Last Admin: 12/29/16 09:33 Dose: 81 mg Bacitracin (Bacitracin -) 1 applic TP DAILY [facility] Last Admin: 12/29/16 09:36 Dose: Not Given Clopidogrel Bisulfate (Plavix -) 75 mg PO DAILY [facility] Last Admin: 12/29/16 09:33 Dose: 75 mg Collagenase (Santyl -) 1 applic TP DAILY [facility] Last Admin: 12/29/16 09:36 Dose: Not Given Furosemide (Lasix Injection -) 40 mg IVPB DAILY [facility] Last Admin: 12/29/16 09:32 Dose: 40 mg Guaifenesin (Robitussin Dm -) 10 ml PO Q6H PRN PRN Reason: COUGH Guaifenesin (Mucinex Dm -) 1 tablet PO BID [facility] Last Admin: 12/29/16 09:36 Dose: 1 tablet Insulin Aspart (Novolog Vial Sliding Scale -) 1 vial SQ ACHS [facility] PRN Reason: Protocol Last Admin: 12/29/16 06:14 Dose: Not Given Insulin Detemir (Levemir Vial) 35 units SQ AM [facility] Last Admin: 12/29/16 06:14 Dose: Not Given Insulin Detemir (Levemir Vial) 15 units SQ HS [facility] Last Admin: 12/28/16 21:35 Dose: 15 units Lidocaine/Aluminum/Magnesium/Simeth (Magic Mouthwash *Sjr Formula* -) 5 ml MM Q6HPO [facility] Last Admin: 12/29/16 05:52 Dose: Not Given Magnesium Hydroxide (Milk Of Magnesia -) 30 ml PO HS PRN PRN Reason: CONSTIPATION Last Admin: 12/19/16 22:08 Dose: 30 ml Methylprednisolone Sodium Succinate (Solu-Medrol -) 40 mg IVPB Q6H-IV [facility] Last Admin: 12/29/16 09:32 Dose: 40 mg Metoprolol Succinate (Toprol Xl -) 25 mg PO DAILY [facility] Last Admin: 12/29/16 09:33 Dose: Not Given Multivitamins/Minerals/Vitamin C (Tab-A-Vit -) 1 tab PO DAILY [facility] Last Admin: 12/29/16 09:33 Dose: 1 tab Pantoprazole Sodium (Protonix -) 40 mg PO DAILY [facility] Last Admin: 12/29/16 09:33 Dose: 40 mg Silver Sulfadiazine (Silvadene -) 1 applic TP BID [facility] Last Admin: 12/29/16 09:36 Dose: 1 applic Tamsulosin HCl (Flomax -) 0.4 mg PO DAILY@0830 [facility] Last Admin: 12/29/16 09:33 Dose: Not Given Zinc Sulfate (Orazinc -) 220 mg PO DAILY [facility] Last Admin: 12/29/16 09:33 Dose: 220 mg A/P Acute Hypoxic Respiratory Failure Interstitial Lung Disease Pneumonia Acute on Chronic LV Systolic Heart Failure CAD PAD CKD DM - continue medrol at current dose - inhaled bronchodilators - continue medrol at current dose - O2 to keep Spo2 >90% - BiPAP for persistent hypoxia - lasix - monitor urine output, creatinine - continue discussions regarding goals of care, advanced directives - poor prognosis
--- NOTE | 2016-12-29 16:02 | PN ---
Progress Note, Physician History of Present Illness: Pt seen and examined at bedside. He complains of shortness of breath. - Current Medication List Current Medications: Active Medications Acetaminophen (Tylenol -) 650 mg PO Q6H PRN PRN Reason: FEVER OR PAIN Last Admin: 12/23/16 21:31 Dose: 650 mg Albuterol Sulfate (Ventolin 0.083% Nebulizer Soln -) 1 amp NEB QIDR [facility] Last Admin: 12/29/16 11:20 Dose: Not Given Amino Acids (Prosource No Carb Liquid Pkt) 30 ml PO BID@0800,1730 [facility] Last Admin: 12/29/16 09:35 Dose: 30 ml Arformoterol Tartrate (Brovana (Restricted To Pulmonology/Resp) -) 1 amp NEB BID [facility] Last Admin: 12/29/16 09:55 Dose: 1 amp Ascorbic Acid (Vitamin C -) 250 mg PO BID [facility] Last Admin: 12/29/16 09:34 Dose: 250 mg Aspirin (Ecotrin -) 81 mg PO DAILY [facility] Last Admin: 12/29/16 09:33 Dose: 81 mg Bacitracin (Bacitracin -) 1 applic TP DAILY [facility] Last Admin: 12/29/16 09:36 Dose: Not Given Clopidogrel Bisulfate (Plavix -) 75 mg PO DAILY [facility] Last Admin: 12/29/16 09:33 Dose: 75 mg Collagenase (Santyl -) 1 applic TP DAILY [facility] Last Admin: 12/29/16 09:36 Dose: Not Given Furosemide (Lasix Injection -) 40 mg IVPB DAILY [facility] Last Admin: 12/29/16 09:32 Dose: 40 mg Guaifenesin (Robitussin Dm -) 10 ml PO Q6H PRN PRN Reason: COUGH Guaifenesin (Mucinex Dm -) 1 tablet PO BID [facility] Last Admin: 12/29/16 09:36 Dose: 1 tablet Insulin Aspart (Novolog Vial Sliding Scale -) 1 vial SQ ACHS [facility] PRN Reason: Protocol Last Admin: 12/29/16 12:34 Dose: 4 units Insulin Detemir (Levemir Vial) 35 units SQ AM [facility] Last Admin: 12/29/16 06:14 Dose: Not Given Insulin Detemir (Levemir Vial) 15 units SQ HS [facility] Last Admin: 12/28/16 21:35 Dose: 15 units Lidocaine/Aluminum/Magnesium/Simeth (Magic Mouthwash *Sjr Formula* -) 5 ml MM Q6HPO [facility] Last Admin: 12/29/16 12:34 Dose: Not Given Magnesium Hydroxide (Milk Of Magnesia -) 30 ml PO HS PRN PRN Reason: CONSTIPATION Last Admin: 12/19/16 22:08 Dose: 30 ml Methylprednisolone Sodium Succinate (Solu-Medrol -) 40 mg IVPB Q6H-IV [facility] Last Admin: 12/29/16 15:34 Dose: 40 mg Metoprolol Succinate (Toprol Xl -) 25 mg PO DAILY [facility] Last Admin: 12/29/16 09:33 Dose: Not Given Multivitamins/Minerals/Vitamin C (Tab-A-Vit -) 1 tab PO DAILY [facility] Last Admin: 12/29/16 09:33 Dose: 1 tab Pantoprazole Sodium (Protonix -) 40 mg PO DAILY [facility] Last Admin: 12/29/16 09:33 Dose: 40 mg Silver Sulfadiazine (Silvadene -) 1 applic TP BID [facility] Last Admin: 12/29/16 09:36 Dose: 1 applic Tamsulosin HCl (Flomax -) 0.4 mg PO DAILY@0830 [facility] Last Admin: 12/29/16 09:33 Dose: Not Given Zinc Sulfate (Orazinc -) 220 mg PO DAILY [facility] Last Admin: 12/29/16 09:33 Dose: 220 mg - Objective Vital Signs: Vital Signs Temperature 97.7 F 12/29/16 14:00 Pulse Rate 72 12/29/16 14:00 Respiratory Rate 20 12/29/16 14:00 Blood Pressure 137/73 12/29/16 14:00 O2 Sat by Pulse Oximetry (%) 93 L 12/29/16 14:13 Constitutional: Yes: Calm Eyes: Yes: Conjunctiva Clear HENT: Yes: Atraumatic Neck: Yes: Supple Cardiovascular: Yes: S1, S2 Respiratory: Yes: On Venti-Mask, Rhonchi Gastrointestinal: Yes: Soft Genitourinary: Yes: Incontinence Musculoskeletal: Yes: Muscle Weakness Edema: No Neurological: Yes: Oriented Psychiatric: Yes: Oriented Labs: CBC, BMP 12/29/16 05:35 12/29/16 05:35 INR, PTT INR 1.12 (0.82-1.09) 12/16/16 12:00 Problem List - Problems (1) Pneumonia Code(s): J18.9 - PNEUMONIA, UNSPECIFIED ORGANISM Qualifiers: Qualified Code(s): J18.9 - Pneumonia, unspecified organism (2) Respiratory distress Code(s): R06.00 - DYSPNEA, UNSPECIFIED (3) BPH (benign prostatic hyperplasia) Code(s): N40.0 - BENIGN PROSTATIC HYPERPLASIA WITHOUT LOWER URINRY TRACT SYMP (4) CAD (coronary artery disease) Code(s): I25.10 - ATHSCL HEART DISEASE OF [place] CORONARY ARTERY W/O ANG PCTRS (5) CHF (congestive heart failure) Code(s): I50.9 - HEART FAILURE, UNSPECIFIED Qualifiers: Qualified Code(s): I50.23 - Acute on chronic systolic (congestive) heart failure (6) Diabetes Code(s): E11.9 - TYPE 2 DIABETES MELLITUS WITHOUT COMPLICATIONS (7) CKD (chronic kidney disease) Code(s): N18.9 - CHRONIC KIDNEY DISEASE, UNSPECIFIED Qualifiers: Qualified Code(s): N18.3 - Chronic kidney disease, stage 3 (moderate) Assessment/Plan Current Medications Generic Name Dose Route Start Last Admin Trade Name Freq PRN Reason Stop Dose Admin Acetaminophen 650 mg 12/19/16 20:28 12/23/16 21:31 Tylenol - PO 650 mg Q6H PRN Administration FEVER OR PAIN Albuterol Sulfate 1 amp 12/27/16 16:30 12/29/16 11:20 Ventolin 0.083% Nebulizer Soln - NEB Not Given QIDR [facility] Amino Acids 30 ml 12/21/16 08:00 12/29/16 09:35 Prosource No Carb Liquid Pkt PO 30 ml BID@0800,1730 [facility] Administration Arformoterol Tartrate 1 amp 12/21/16 11:45 12/29/16 09:55 Brovana (Restricted To Pulmonology/Resp) - NEB 1 amp BID [facility] Administration Ascorbic Acid 250 mg 12/20/16 22:00 12/29/16 09:34 Vitamin C - PO 250 mg BID [facility] Administration Aspirin 81 mg 12/17/16 10:00 12/29/16 09:33 Ecotrin - PO 81 mg DAILY [facility] Administration Bacitracin 1 applic 12/19/16 11:45 12/29/16 09:36 Bacitracin - TP Not Given DAILY [facility] Clopidogrel Bisulfate 75 mg 05/27/17 10:00 12/29/16 09:33 Plavix - PO 75 mg DAILY [facility] Administration Collagenase 1 applic 12/17/16 10:00 12/29/16 09:36 Santyl - TP Not Given DAILY [facility] Furosemide 40 mg 12/25/16 10:00 12/29/16 09:32 Lasix Injection - IVPB 40 mg DAILY [facility] Administration Guaifenesin 10 ml 12/21/16 11:39 Robitussin Dm - PO Q6H PRN COUGH Guaifenesin 1 tablet 12/27/16 22:00 12/29/16 09:36 Mucinex Dm - PO 1 tablet BID [facility] Administration Insulin Aspart 1 vial 12/16/16 22:00 12/29/16 12:34 Novolog Vial Sliding Scale - SQ 4 units ACHS [facility] Administration Protocol Insulin Detemir 35 units 12/20/16 12:46 12/29/16 06:14 Levemir Vial SQ Not Given AM [facility] Insulin Detemir 15 units 12/21/16 22:00 12/28/16 21:35 Levemir Vial SQ 15 units HS [facility] Administration Lidocaine/Aluminum/Magnesium/Simeth 5 ml 12/21/16 12:00 12/29/16 12:34 Magic Mouthwash *Sjr Formula* - MM Not Given Q6HPO [facility] Magnesium Hydroxide 30 ml 12/19/16 20:34 12/19/16 22:08 Milk Of Magnesia - PO 30 ml HS PRN Administration CONSTIPATION Methylprednisolone Sodium Succinate 40 mg 12/24/16 15:00 12/29/16 15:34 Solu-Medrol - IVPB 40 mg Q6H-IV [facility] Administration Metoprolol Succinate 25 mg 12/23/16 10:00 12/29/16 09:33 Toprol Xl - PO Not Given DAILY [facility] Multivitamins/Minerals/Vitamin C 1 tab 12/21/16 10:00 12/29/16 09:33 Tab-A-Vit - PO 1 tab DAILY [facility] Administration Pantoprazole Sodium 40 mg 12/16/16 17:00 12/29/16 09:33 Protonix - PO 40 mg DAILY [facility] Administration Silver Sulfadiazine 1 applic 12/20/16 22:00 12/29/16 09:36 Silvadene - TP 1 applic BID [facility] Administration Tamsulosin HCl 0.4 mg 12/17/16 08:30 12/29/16 09:33 Flomax - PO Not Given DAILY@0830 [facility] Zinc Sulfate 220 mg 12/21/16 10:00 12/29/16 09:33 Orazinc - PO 220 mg DAILY [facility] Administration Laboratory Tests 12/26/16 12:20 JOLIE Screen Negative c-ANCA <1:20 Proteinase 3 (PR3) <3.5 p-ANCA <1:20 Atypical p-ANCA <1:20 Myeloperoxidase Ab <9.0 Impression 1. CKD 2. hx CVA 3. CAD 4. DM 5. BPH 6. chol 7. PVD 8. s/p angio of the right leg with stenting 9. PNA 10. dyspnea 11. lactic acidosis Plan - jolie and anca are negative - renal function is stabilizing - steroids with taper as tolerated - will follow PRN Dr Wilson
--- NOTE | 2016-12-29 21:21 | PN ---
Progress Note, Physician Chief Complaint: PATIENT REMAINS ON 100% NRB AND WEAK UNABLE TO TOLERATE BEING OFF OF 02 AND DESATURATES QUICKLY. I SPOKE TO THE PHYSICIAN DR IDAZ AT [facility] TODAY. DR DIAZ STATES IF PATIENT AND FAMILY DO NOT WANT LUNG BIOPSY THAT THEY WILL NOT ACCEPT THE TRANSFER TO [facility] AND NO REASON TO BRING MR AREVALO THERE IF HE IS REFUSING INTERVENTIONS. TRANSFER DENIED...... - Current Medication List Current Medications: Active Medications Acetaminophen (Tylenol -) 650 mg PO Q6H PRN PRN Reason: FEVER OR PAIN Last Admin: 12/23/16 21:31 Dose: 650 mg Albuterol Sulfate (Ventolin 0.083% Nebulizer Soln -) 1 amp NEB QIDR [facility] Last Admin: 12/29/16 17:31 Dose: Not Given Amino Acids (Prosource No Carb Liquid Pkt) 30 ml PO BID@0800,1730 [facility] Last Admin: 12/29/16 17:21 Dose: 30 ml Arformoterol Tartrate (Brovana (Restricted To Pulmonology/Resp) -) 1 amp NEB BID [facility] Last Admin: 12/29/16 09:55 Dose: 1 amp Ascorbic Acid (Vitamin C -) 250 mg PO BID [facility] Last Admin: 12/29/16 09:34 Dose: 250 mg Aspirin (Ecotrin -) 81 mg PO DAILY [facility] Last Admin: 12/29/16 09:33 Dose: 81 mg Bacitracin (Bacitracin -) 1 applic TP DAILY [facility] Last Admin: 12/29/16 09:36 Dose: Not Given Clopidogrel Bisulfate (Plavix -) 75 mg PO DAILY [facility] Last Admin: 12/29/16 09:33 Dose: 75 mg Collagenase (Santyl -) 1 applic TP DAILY [facility] Last Admin: 12/29/16 09:36 Dose: Not Given Furosemide (Lasix Injection -) 40 mg IVPB DAILY [facility] Last Admin: 12/29/16 09:32 Dose: 40 mg Guaifenesin (Robitussin Dm -) 10 ml PO Q6H PRN PRN Reason: COUGH Guaifenesin (Mucinex Dm -) 1 tablet PO BID [facility] Last Admin: 12/29/16 09:36 Dose: 1 tablet Insulin Aspart (Novolog Vial Sliding Scale -) 1 vial SQ ACHS [facility] PRN Reason: Protocol Last Admin: 12/29/16 17:21 Dose: 10 units Insulin Detemir (Levemir Vial) 35 units SQ AM [facility] Last Admin: 12/29/16 06:14 Dose: Not Given Insulin Detemir (Levemir Vial) 15 units SQ HS [facility] Last Admin: 12/28/16 21:35 Dose: 15 units Lidocaine/Aluminum/Magnesium/Simeth (Magic Mouthwash *Sjr Formula* -) 5 ml MM Q6HPO [facility] Last Admin: 12/29/16 17:21 Dose: Not Given Magnesium Hydroxide (Milk Of Magnesia -) 30 ml PO HS PRN PRN Reason: CONSTIPATION Last Admin: 12/19/16 22:08 Dose: 30 ml Methylprednisolone Sodium Succinate (Solu-Medrol -) 40 mg IVPB Q6H-IV [facility] Last Admin: 12/29/16 15:34 Dose: 40 mg Metoprolol Succinate (Toprol Xl -) 25 mg PO DAILY [facility] Last Admin: 12/29/16 09:33 Dose: Not Given Multivitamins/Minerals/Vitamin C (Tab-A-Vit -) 1 tab PO DAILY [facility] Last Admin: 12/29/16 09:33 Dose: 1 tab Pantoprazole Sodium (Protonix -) 40 mg PO DAILY [facility] Last Admin: 12/29/16 09:33 Dose: 40 mg Silver Sulfadiazine (Silvadene -) 1 applic TP BID [facility] Last Admin: 12/29/16 09:36 Dose: 1 applic Tamsulosin HCl (Flomax -) 0.4 mg PO DAILY@0830 [facility] Last Admin: 12/29/16 09:33 Dose: Not Given Zinc Sulfate (Orazinc -) 220 mg PO DAILY [facility] Last Admin: 12/29/16 09:33 Dose: 220 mg - Objective Vital Signs: Vital Signs Temperature 98.6 F 12/29/16 17:00 Pulse Rate 73 12/29/16 17:00 Respiratory Rate 18 12/29/16 17:00 Blood Pressure 157/78 12/29/16 17:00 O2 Sat by Pulse Oximetry (%) 93 L 12/29/16 14:13 Constitutional: Yes: Severe Distress Eyes: Yes: WNL HENT: Yes: WNL Neck: Yes: WNL Cardiovascular: Yes: Tachycardia Respiratory: Yes: On Venti-Mask, SOB Gastrointestinal: Yes: WNL Genitourinary: Yes: Incontinence Musculoskeletal: Yes: Muscle Weakness Extremities: Yes: WNL Edema: No Peripheral Pulses WNL: Yes Integumentary: Yes: WNL Wound/Incision: Yes: Other Neurological: Yes: Weakness ...Motor Strength: LLE, RLE Psychiatric: Yes: Other Labs: CBC, BMP 12/29/16 05:35 12/29/16 05:35 INR, PTT INR 1.12 (0.82-1.09) 12/16/16 12:00 Problem List - Problems (1) Pneumonia Code(s): J18.9 - PNEUMONIA, UNSPECIFIED ORGANISM Qualifiers: Qualified Code(s): J18.9 - Pneumonia, unspecified organism (2) Microcytic anemia Code(s): D50.9 - IRON DEFICIENCY ANEMIA, UNSPECIFIED (3) UTI (urinary tract infection) Code(s): N39.0 - URINARY TRACT INFECTION, SITE NOT SPECIFIED (4) BPH (benign prostatic hyperplasia) Code(s): N40.0 - BENIGN PROSTATIC HYPERPLASIA WITHOUT LOWER URINRY TRACT SYMP (5) CAD (coronary artery disease) Code(s): I25.10 - ATHSCL HEART DISEASE OF [place] CORONARY ARTERY W/O ANG PCTRS (6) CHF (congestive heart failure) Code(s): I50.9 - HEART FAILURE, UNSPECIFIED Qualifiers: Qualified Code(s): I50.23 - Acute on chronic systolic (congestive) heart failure (7) Diabetes Code(s): E11.9 - TYPE 2 DIABETES MELLITUS WITHOUT COMPLICATIONS (8) Respiratory distress Code(s): R06.00 - DYSPNEA, UNSPECIFIED (9) CKD (chronic kidney disease) Code(s): N18.9 - CHRONIC KIDNEY DISEASE, UNSPECIFIED Qualifiers: Qualified Code(s): N18.3 - Chronic kidney disease, stage 3 (moderate) Assessment/Plan DISCUSSED EARLIER, TRANSFER TO [facility] IS DENIED BY THE ACCEPTING PHYSICIAN DU TO OVERALL POOR PROGNOSIS, INABILITY TO HANDLE BIOPSY WITH HEALTH POLICY ANALYST INTUBATION WITH PROBABLE TRACHEOSTOMY. UNWILLINGNESS BY THE PATIENT AND FAMILY TO HAVE A LUNG BIOPSY EITHER WEDGE OR BRONCHOSCOPY ALSO A REASON FOR TRANSFER DENIED. ALTHOUGH BIOPSY AT THIS POINT NOT NECESSARY BECAUSE IT WILL NOT CHANGE PROGNOSIS OR TREATMENT. C- ANCA AND P-ANC, HIV, KARAN ALL NEGATIVE. LUNG DISEASE LIKELY WORSENING COPD/EMPHYSEMA FOR ROBY TOBACCO USER/SMOKER FOR OVER 40 YEARS . PLAN IS TO CONTINUE 02 THERAPY, STEROIDS IV, NEBS, MUCOLYTICS AND PULMONARY CARE WITH PROTEIN SHAKES FOR NUTRITION. OVERALL PROGNOSIS EXTREMELY POOR, DISCUSSED WITH BEDSIDE ADVANCED DIRECTIVES NEEDED FOR FULL CODE / INTUBATION ETC... PALLIATIVE CARE CONSULT.
[2016-12-30] MEDS: ALBUTEROL SO4 0.083% IH SOL 2.5 MG/3 ML VIAL.NEB. NEB SCH ×3 (00:10→11:07)
[2016-12-30] MEDS: MAG HYDROX/ALH/SMC/DPHA/LIDO 240 ML MOUTHWASH MM SCH ×4 (00:36→18:23)
[2016-12-30] MEDS: methylPREDNISolone NA SUCC 40 MG/1 ML VIAL IVPB SCH ×4 (04:39→22:37)
[2016-12-30] MEDS: INSULIN SLIDING SCALE (NOVOLOG) 1 VIAL SQ SCH ×4 (06:18→22:51)
[2016-12-30] MEDS: INSULIN DETEMIR 100 UNITS/ML MDV SQ SCH ×2 (06:18→22:51)
[2016-12-30] MEDS: AMINO ACIDS/PROTEIN HYDROLYS 30 ML LIQUID.PKT PO SCH ×2 (08:59→18:23)
[2016-12-30] MEDS: BACITRACIN 15 GM TUBE TOPICAL OINTMENT TP SCH (08:59)
[2016-12-30] MEDS: ASCORBIC ACID 250 MG TABLET (FP) PO SCH ×2 (09:00→22:37)
[2016-12-30] MEDS: TAMSULOSIN HCL 0.4 MG CAP.ER.24H (FP) PO SCH (09:00)
[2016-12-30] MEDS: METOPROLOL SUCCINATE 25 MG TAB.SR.24H (FP) PO SCH (09:00)
[2016-12-30] MEDS: FUROSEMIDE 40 MG/4 ML INJECTABLE VIAL IVPB SCH (09:00)
[2016-12-30] MEDS: MULTIVITAMINS (DAILY MVI) TABLET (FP) PO SCH (09:01)
[2016-12-30] MEDS: SILVER SULFADIAZINE 1% TOP CREAM 50 GM JAR TP SCH ×2 (09:01→22:50)
[2016-12-30] MEDS: CLOPIDOGREL BISULFATE 75 MG TABLET (FP) PO SCH (09:01)
[2016-12-30] MEDS: ZINC SULFATE 220 MG CAPSULE (FP) PO SCH (09:01)
[2016-12-30] MEDS: ASPIRIN COATED 81 MG TABLET.EC PO SCH (09:01)
[2016-12-30] MEDS: COLLAGENASE CLOSTRIDIUM HIST. 30 GRAMS TUBE TP SCH (09:01)
[2016-12-30] MEDS: PANTOPRAZOLE 40 MG TABLET (FP) PO SCH (09:01)
[2016-12-30] MEDS: guaiFENesin/D-METHORPHAN HB 1 EACH TAB.ER.12H PO SCH (09:01)
[2016-12-30] MEDS: ARFORMOTEROL TARTRATE 15 MCG/2 ML VIAL NEB SCH ×2 (10:09→22:00)
--- NOTE | 2016-12-30 11:31 | PN ---
Progress Note, Physician History of Present Illness: PULMONARY ALERT,APPEARS MORE COMFORTABLE TODAY,REMAINS HYPOXIC ON 100% NRM - Current Medication List Current Medications: Active Medications Acetaminophen (Tylenol -) 650 mg PO Q6H PRN PRN Reason: FEVER OR PAIN Last Admin: 12/23/16 21:31 Dose: 650 mg Albuterol Sulfate (Ventolin 0.083% Nebulizer Soln -) 1 amp NEB QIDR [facility] Last Admin: 12/30/16 11:07 Dose: Not Given Amino Acids (Prosource No Carb Liquid Pkt) 30 ml PO BID@0800,1730 [facility] Last Admin: 12/30/16 08:59 Dose: 30 ml Arformoterol Tartrate (Brovana (Restricted To Pulmonology/Resp) -) 1 amp NEB BID [facility] Last Admin: 12/30/16 10:09 Dose: 1 amp Ascorbic Acid (Vitamin C -) 250 mg PO BID [facility] Last Admin: 12/30/16 09:00 Dose: 250 mg Aspirin (Ecotrin -) 81 mg PO DAILY [facility] Last Admin: 12/30/16 09:01 Dose: 81 mg Bacitracin (Bacitracin -) 1 applic TP DAILY [facility] Last Admin: 12/30/16 08:59 Dose: 1 applic Clopidogrel Bisulfate (Plavix -) 75 mg PO DAILY [facility] Last Admin: 12/30/16 09:01 Dose: 75 mg Collagenase (Santyl -) 1 applic TP DAILY [facility] Last Admin: 12/30/16 09:01 Dose: Not Given Furosemide (Lasix Injection -) 40 mg IVPB DAILY [facility] Last Admin: 12/30/16 09:00 Dose: 40 mg Guaifenesin (Robitussin Dm -) 10 ml PO Q6H PRN PRN Reason: COUGH Guaifenesin (Mucinex Dm -) 1 tablet PO BID [facility] Last Admin: 12/30/16 09:01 Dose: 1 tablet Insulin Aspart (Novolog Vial Sliding Scale -) 1 vial SQ ACHS [facility] PRN Reason: Protocol Last Admin: 12/30/16 06:18 Dose: Not Given Insulin Detemir (Levemir Vial) 35 units SQ AM [facility] Last Admin: 12/30/16 06:18 Dose: 35 units Insulin Detemir (Levemir Vial) 15 units SQ HS [facility] Last Admin: 12/29/16 21:28 Dose: Not Given Lidocaine/Aluminum/Magnesium/Simeth (Magic Mouthwash *Sjr Formula* -) 5 ml MM Q6HPO [facility] Last Admin: 12/30/16 05:27 Dose: Not Given Magnesium Hydroxide (Milk Of Magnesia -) 30 ml PO HS PRN PRN Reason: CONSTIPATION Last Admin: 12/19/16 22:08 Dose: 30 ml Methylprednisolone Sodium Succinate (Solu-Medrol -) 40 mg IVPB Q6H-IV [facility] Last Admin: 12/30/16 09:00 Dose: 40 mg Metoprolol Succinate (Toprol Xl -) 25 mg PO DAILY [facility] Last Admin: 12/30/16 09:00 Dose: 25 mg Multivitamins/Minerals/Vitamin C (Tab-A-Vit -) 1 tab PO DAILY [facility] Last Admin: 12/30/16 09:01 Dose: 1 tab Pantoprazole Sodium (Protonix -) 40 mg PO DAILY [facility] Last Admin: 12/30/16 09:01 Dose: 40 mg Silver Sulfadiazine (Silvadene -) 1 applic TP BID [facility] Last Admin: 12/30/16 09:01 Dose: 1 applic Tamsulosin HCl (Flomax -) 0.4 mg PO DAILY@0830 [facility] Last Admin: 12/30/16 09:00 Dose: 0.4 mg Zinc Sulfate (Orazinc -) 220 mg PO DAILY [facility] Last Admin: 12/30/16 09:01 Dose: 220 mg - Objective Vital Signs: Vital Signs Temperature 97.3 F L 12/30/16 07:12 Pulse Rate 88 12/30/16 10:09 Respiratory Rate 20 12/30/16 07:16 Blood Pressure 144/76 12/30/16 07:12 O2 Sat by Pulse Oximetry (%) 92 L 12/30/16 10:09 Constitutional: Yes: Calm, Thin Eyes: Yes: WNL HENT: Yes: WNL Neck: Yes: WNL Cardiovascular: Yes: Regular Rate and Rhythm, S1, S2 Respiratory: Yes: Rales (BILATERAL CRACKLES,AND SCATTERED AVI HONCHI) Gastrointestinal: Yes: Normal Bowel Sounds, Soft Extremities: Yes: WNL Edema: No Labs: CBC, BMP Problem List - Problems (1) Acute hypoxemic respiratory failure Code(s): J96.01 - ACUTE RESPIRATORY FAILURE WITH HYPOXIA Assessment/Plan Problem List - Problems (1) CKD (chronic kidney disease) Code(s): N18.9 - CHRONIC KIDNEY DISEASE, UNSPECIFIED (2) PAD (peripheral artery disease) Code(s): I73.9 - PERIPHERAL VASCULAR DISEASE, UNSPECIFIED (3) Pneumonia Code(s): J18.9 - PNEUMONIA, UNSPECIFIED ORGANISM Qualifiers: Pneumonia type: due to unspecified organism Laterality: bilateral Lung location: unspecified part of lung Qualified Code(s): J18.9 - Pneumonia, unspecified organism (4) Respiratory distress Code(s): R06.00 - DYSPNEA, UNSPECIFIED (5) Microcytic anemia Code(s): D50.9 - IRON DEFICIENCY ANEMIA, UNSPECIFIED (6) BPH (benign prostatic hyperplasia) Code(s): N40.0 - BENIGN PROSTATIC HYPERPLASIA WITHOUT LOWER URINRY TRACT SYMP (7) CAD (coronary artery disease) Code(s): I25.10 - ATHSCL HEART DISEASE OF [place] CORONARY ARTERY W/O ANG PCTRS Qualifiers: Associated angina: with unspecified angina (8) CHF (congestive heart failure) Code(s): I50.9 - HEART FAILURE, UNSPECIFIED Qualifiers: Congestive heart failure type: systolic Congestive heart failure chronicity: acute on chronic Qualified Code(s): I50.23 - Acute on chronic systolic (congestive) heart failure (9) Diabetes Code(s): E11.9 - TYPE 2 DIABETES MELLITUS WITHOUT COMPLICATIONS Qualifiers: Diabetes mellitus complication status: with other specified complication 10 ACUTE HYPOXEMIC RESPIRATORY FAILURE I1. PNEUMONIA 12 ILD Assessment/Plan O2 to maintain O2sat 90% Bipap Lasix Daily weights I&O BD TX medrol monitor renal function Dr Tyler
[2016-12-30] MEDS ORDERED: ALBUTEROL SO4 2.5/IPRATROPIUM 0.5 INH SOL 3 ML VIAL.NEB. NEB PRN (11:32)
--- NOTE | 2016-12-30 12:20 | PN ---
Progress Note (short form) - Note Progress Note: clinically unchanged remains hypoxic requiring either bipap or ventimask no transfer as family and patient are refusing biopsy Vital Signs Period Temp Pulse Resp BP Sys/Blanca Pulse Ox Last 24 Hr 97.1 F-98.6 F 68-88 18-20 137-157/66-78 92-95 cor-rrr lungs decreased bs at bases abd soft,nt ext no edema +right heel ulcer CBC, BMP 12/29/16 05:35 12/29/16 05:35 Laboratory Tests 12/26/16 12/26/16 12:20 12:20 ESR 74 H C-Reactive Protein 6.3 H blood cultures negative hiv negative jolie screen negative legionella antigen negative anca negative duplex of legs negative for DVT quantiferon gold negative a/p hypoxemic respiratory failure -continue steroids, f/u serologies bilateral infiltrates- ?inflammatory, most likely noninfectious, ?amiodarone he received 7 days of zosyn and zithromax at [facility] prior to discharge 12/14, he was started on prednisone there for ILD also Amiodarone was stopped- could this be amiodarone toxicity? reports he was on amiodarone for the prior 8 months repeat sputum cultures ordered he needs a bronchoscopy or lung biopsy which both he and his are currently refusing not much more to offer at this time
--- NOTE | 2016-12-30 13:16 | PN ---
Progress Note, Physician History of Present Illness: Pt seen and examined at bedside. He remains on oxygen and has not improved much since last night. - Current Medication List Current Medications: Active Medications Acetaminophen (Tylenol -) 650 mg PO Q6H PRN PRN Reason: FEVER OR PAIN Last Admin: 12/23/16 21:31 Dose: 650 mg Albuterol/Ipratropium (Duoneb -) 1 amp NEB Q4H PRN PRN Reason: SHORTNESS OF BREATH Amino Acids (Prosource No Carb Liquid Pkt) 30 ml PO BID@0800,1730 [facility] Last Admin: 12/30/16 08:59 Dose: 30 ml Arformoterol Tartrate (Brovana (Restricted To Pulmonology/Resp) -) 1 amp NEB BID [facility] Last Admin: 12/30/16 10:09 Dose: 1 amp Ascorbic Acid (Vitamin C -) 250 mg PO BID [facility] Last Admin: 12/30/16 09:00 Dose: 250 mg Aspirin (Ecotrin -) 81 mg PO DAILY [facility] Last Admin: 12/30/16 09:01 Dose: 81 mg Bacitracin (Bacitracin -) 1 applic TP DAILY [facility] Last Admin: 12/30/16 08:59 Dose: 1 applic Clopidogrel Bisulfate (Plavix -) 75 mg PO DAILY [facility] Last Admin: 12/30/16 09:01 Dose: 75 mg Collagenase (Santyl -) 1 applic TP DAILY [facility] Last Admin: 12/30/16 09:01 Dose: Not Given Furosemide (Lasix Injection -) 40 mg IVPB DAILY [facility] Last Admin: 12/30/16 09:00 Dose: 40 mg Guaifenesin (Robitussin Dm -) 10 ml PO Q6H PRN PRN Reason: COUGH Guaifenesin (Mucinex Dm -) 1 tablet PO BID [facility] Last Admin: 12/30/16 09:01 Dose: 1 tablet Insulin Aspart (Novolog Vial Sliding Scale -) 1 vial SQ ACHS [facility] PRN Reason: Protocol Last Admin: 12/30/16 11:40 Dose: 12 units Insulin Detemir (Levemir Vial) 35 units SQ AM [facility] Last Admin: 12/30/16 06:18 Dose: 35 units Insulin Detemir (Levemir Vial) 15 units SQ HS [facility] Last Admin: 12/29/16 21:28 Dose: Not Given Lidocaine/Aluminum/Magnesium/Simeth (Magic Mouthwash *Sjr Formula* -) 5 ml MM Q6HPO [facility] Last Admin: 12/30/16 11:41 Dose: 5 ml Magnesium Hydroxide (Milk Of Magnesia -) 30 ml PO HS PRN PRN Reason: CONSTIPATION Last Admin: 12/19/16 22:08 Dose: 30 ml Methylprednisolone Sodium Succinate (Solu-Medrol -) 40 mg IVPB Q6H-IV [facility] Last Admin: 12/30/16 09:00 Dose: 40 mg Metoprolol Succinate (Toprol Xl -) 25 mg PO DAILY [facility] Last Admin: 12/30/16 09:00 Dose: 25 mg Multivitamins/Minerals/Vitamin C (Tab-A-Vit -) 1 tab PO DAILY [facility] Last Admin: 12/30/16 09:01 Dose: 1 tab Pantoprazole Sodium (Protonix -) 40 mg PO DAILY [facility] Last Admin: 12/30/16 09:01 Dose: 40 mg Silver Sulfadiazine (Silvadene -) 1 applic TP BID [facility] Last Admin: 12/30/16 09:01 Dose: 1 applic Tamsulosin HCl (Flomax -) 0.4 mg PO DAILY@0830 [facility] Last Admin: 12/30/16 09:00 Dose: 0.4 mg Zinc Sulfate (Orazinc -) 220 mg PO DAILY [facility] Last Admin: 12/30/16 09:01 Dose: 220 mg - Objective Vital Signs: Vital Signs Temperature 97.3 F L 12/30/16 07:12 Pulse Rate 88 12/30/16 10:09 Respiratory Rate 20 12/30/16 07:16 Blood Pressure 144/76 12/30/16 07:12 O2 Sat by Pulse Oximetry (%) 92 L 12/30/16 10:09 Constitutional: Yes: Calm Eyes: Yes: Conjunctiva Clear HENT: Yes: Atraumatic Cardiovascular: Yes: S1, S2 Respiratory: Yes: On Venti-Mask Gastrointestinal: Yes: Soft Genitourinary: Yes: Incontinence Musculoskeletal: Yes: Muscle Weakness Edema: No Neurological: Yes: Oriented Psychiatric: Yes: Oriented Labs: CBC, BMP 12/29/16 05:35 12/29/16 05:35 INR, PTT INR 1.12 (0.82-1.09) 12/16/16 12:00 Problem List - Problems (1) Pneumonia Code(s): J18.9 - PNEUMONIA, UNSPECIFIED ORGANISM Qualifiers: Qualified Code(s): J18.9 - Pneumonia, unspecified organism (2) Respiratory distress Code(s): R06.00 - DYSPNEA, UNSPECIFIED (3) BPH (benign prostatic hyperplasia) Code(s): N40.0 - BENIGN PROSTATIC HYPERPLASIA WITHOUT LOWER URINRY TRACT SYMP (4) CAD (coronary artery disease) Code(s): I25.10 - ATHSCL HEART DISEASE OF [place] CORONARY ARTERY W/O ANG PCTRS (5) CHF (congestive heart failure) Code(s): I50.9 - HEART FAILURE, UNSPECIFIED Qualifiers: Qualified Code(s): I50.23 - Acute on chronic systolic (congestive) heart failure (6) Diabetes Code(s): E11.9 - TYPE 2 DIABETES MELLITUS WITHOUT COMPLICATIONS (7) CKD (chronic kidney disease) Code(s): N18.9 - CHRONIC KIDNEY DISEASE, UNSPECIFIED Qualifiers: Qualified Code(s): N18.3 - Chronic kidney disease, stage 3 (moderate) Assessment/Plan Current Medications Generic Name Dose Route Start Last Admin Trade Name Freq PRN Reason Stop Dose Admin Acetaminophen 650 mg 12/19/16 20:28 12/23/16 21:31 Tylenol - PO 650 mg Q6H PRN Administration FEVER OR PAIN Albuterol/Ipratropium 1 amp 12/30/16 11:32 Duoneb - NEB Q4H PRN SHORTNESS OF BREATH Amino Acids 30 ml 12/21/16 08:00 12/30/16 08:59 Prosource No Carb Liquid Pkt PO 30 ml BID@0800,1730 JONAS Administration Arformoterol Tartrate 1 amp 12/21/16 11:45 12/30/16 10:09 Brovana (Restricted To Pulmonology/Resp) - NEB 1 amp BID [facility]ONAS Administration Ascorbic Acid 250 mg 12/20/16 22:00 12/30/16 09:00 Vitamin C - PO 250 mg BID JONAS Administration Aspirin 81 mg 12/17/16 10:00 12/30/16 09:01 Ecotrin - PO 81 mg DAILY [facility]ONAS Administration Bacitracin 1 applic 12/19/16 11:45 12/30/16 08:59 Bacitracin - TP 1 applic DAILY [facility]ONAS Administration Clopidogrel Bisulfate 75 mg 12/17/16 10:00 12/30/16 09:01 Plavix - PO 75 mg DAILY JONAS Administration Collagenase 1 applic 12/17/16 10:00 12/30/16 09:01 Santyl - TP Not Given DAILY [facility]ONAS Furosemide 40 mg 12/25/16 10:00 12/30/16 09:00 Lasix Injection - IVPB 40 mg DAILY [facility]ONAS Administration Guaifenesin 10 ml 12/21/16 11:39 Robitussin Dm - PO Q6H PRN COUGH Guaifenesin 1 tablet 12/27/16 22:00 12/30/16 09:01 Mucinex Dm - PO 1 tablet BID [facility]ONAS Administration Insulin Aspart 1 vial 12/16/16 22:00 12/30/16 11:40 Novolog Vial Sliding Scale - SQ 12 units ACHS JONAS Administration Protocol Insulin Detemir 35 units 12/20/16 12:46 12/30/16 06:18 Levemir Vial SQ 35 units AM [facility]ONAS Administration Insulin Detemir 15 units 12/21/16 22:00 12/29/16 21:28 Levemir Vial SQ Not Given HS JONAS Lidocaine/Aluminum/Magnesium/Simeth 5 ml 12/21/16 12:00 12/30/16 11:41 Magic Mouthwash *Sjr Formula* - MM 5 ml Q6HPO [facility]ONAS Administration Magnesium Hydroxide 30 ml 12/19/16 20:34 12/19/16 22:08 Milk Of Magnesia - PO 30 ml HS PRN Administration CONSTIPATION Methylprednisolone Sodium Succinate 40 mg 12/24/16 15:00 12/30/16 09:00 Solu-Medrol - IVPB 40 mg Q6H-IV [facility]ONAS Administration Metoprolol Succinate 25 mg 12/23/16 10:00 12/30/16 09:00 Toprol Xl - PO 25 mg DAILY [facility]ON[facility] Administration Multivitamins/Minerals/Vitamin C 1 tab 12/21/16 10:00 12/30/16 09:01 Tab-A-Vit - PO 1 tab DAILY [facility] Administration Pantoprazole Sodium 40 mg 12/16/16 17:00 12/30/16 09:01 Protonix - PO 40 mg DAILY [facility]ONAS Administration Silver Sulfadiazine 1 applic 12/20/16 22:00 12/30/16 09:01 Silvadene - TP 1 applic BID [facility]ONAS Administration Tamsulosin HCl 0.4 mg 12/17/16 08:30 12/30/16 09:00 Flomax - PO 0.4 mg DAILY@0830 [facility] Administration Zinc Sulfate 220 mg 12/21/16 10:00 12/30/16 09:01 Orazinc - PO 220 mg DAILY [facility]ON[facility] Administration Impression 1. CKD 2. hx CVA 3. CAD 4. DM 5. BPH 6. chol 7. PVD 8. s/p angio of the right leg with stenting 9. PNA 10. dyspnea 11. lactic acidosis 12. respiratory failure Plan - pt ferrell not want bloodwork everyday - no new labs - cont with oxygen - he and his are refusing bronchoscopy or lung biopsy - serologic workup noted - monitor renal function when he agrees - will follow pt PRN - discussed with medical attending last night - discussed plan with pt and his at length Dr Wilson
--- NOTE | 2016-12-30 13:54 | PN ---
Progress Note, Physician Chief Complaint: awake alert on sob refusing plavix because he is having upset stomach - Current Medication List Current Medications: Active Medications Acetaminophen (Tylenol -) 650 mg PO Q6H PRN PRN Reason: FEVER OR PAIN Last Admin: 12/23/16 21:31 Dose: 650 mg Albuterol/Ipratropium (Duoneb -) 1 amp NEB Q4H PRN PRN Reason: SHORTNESS OF BREATH Amino Acids (Prosource No Carb Liquid Pkt) 30 ml PO BID@0800,1730 [facility] Last Admin: 12/30/16 08:59 Dose: 30 ml Arformoterol Tartrate (Brovana (Restricted To Pulmonology/Resp) -) 1 amp NEB BID [facility] Last Admin: 12/30/16 10:09 Dose: 1 amp Ascorbic Acid (Vitamin C -) 250 mg PO BID [facility] Last Admin: 12/30/16 09:00 Dose: 250 mg Aspirin (Ecotrin -) 81 mg PO DAILY [facility] Last Admin: 12/30/16 09:01 Dose: 81 mg Bacitracin (Bacitracin -) 1 applic TP DAILY [facility] Last Admin: 12/30/16 08:59 Dose: 1 applic Collagenase (Santyl -) 1 applic TP DAILY [facility] Last Admin: 12/30/16 09:01 Dose: Not Given Furosemide (Lasix Injection -) 40 mg IVPB DAILY [facility] Last Admin: 12/30/16 09:00 Dose: 40 mg Guaifenesin (Robitussin Dm -) 10 ml PO Q6H PRN PRN Reason: COUGH Insulin Aspart (Novolog Vial Sliding Scale -) 1 vial SQ ACHS [facility] PRN Reason: Protocol Last Admin: 12/30/16 11:40 Dose: 12 units Insulin Detemir (Levemir Vial) 35 units SQ AM [facility] Last Admin: 12/30/16 06:18 Dose: 35 units Insulin Detemir (Levemir Vial) 15 units SQ HS [facility] Last Admin: 12/29/16 21:28 Dose: Not Given Lidocaine/Aluminum/Magnesium/Simeth (Magic Mouthwash *Sjr Formula* -) 5 ml MM Q6HPO [facility] Last Admin: 12/30/16 11:41 Dose: 5 ml Magnesium Hydroxide (Milk Of Magnesia -) 30 ml PO HS PRN PRN Reason: CONSTIPATION Last Admin: 12/19/16 22:08 Dose: 30 ml Methylprednisolone Sodium Succinate (Solu-Medrol -) 40 mg IVPB Q6H-IV [facility] Last Admin: 12/30/16 09:00 Dose: 40 mg Metoprolol Succinate (Toprol Xl -) 25 mg PO DAILY [facility] Last Admin: 12/30/16 09:00 Dose: 25 mg Multivitamins/Minerals/Vitamin C (Tab-A-Vit -) 1 tab PO DAILY [facility] Last Admin: 12/30/16 09:01 Dose: 1 tab Pantoprazole Sodium (Protonix -) 40 mg PO DAILY [facility] Last Admin: 12/30/16 09:01 Dose: 40 mg Silver Sulfadiazine (Silvadene -) 1 applic TP BID [facility] Last Admin: 12/30/16 09:01 Dose: 1 applic Tamsulosin HCl (Flomax -) 0.4 mg PO DAILY@0830 [facility] Last Admin: 12/30/16 09:00 Dose: 0.4 mg Zinc Sulfate (Orazinc -) 220 mg PO DAILY [facility] Last Admin: 12/30/16 09:01 Dose: 220 mg - Objective Vital Signs: Vital Signs Temperature 97.3 F L 12/30/16 07:12 Pulse Rate 88 12/30/16 10:09 Respiratory Rate 20 12/30/16 07:16 Blood Pressure 144/76 12/30/16 07:12 O2 Sat by Pulse Oximetry (%) 92 L 12/30/16 10:09 Constitutional: Yes: Severe Distress Eyes: Yes: WNL HENT: Yes: WNL Neck: Yes: WNL Cardiovascular: Yes: WNL Respiratory: Yes: On BiPap, Poor Air Entry Gastrointestinal: Yes: WNL Genitourinary: Yes: Incontinence Musculoskeletal: Yes: Muscle Weakness Extremities: Yes: Other Edema: No Peripheral Pulses WNL: Yes Integumentary: Yes: Pressure Ulcer Wound/Incision: Yes: Dressing Dry and Intact Neurological: Yes: Other ...Motor Strength: LLE, RLE Psychiatric: Yes: Other Labs: CBC, BMP 12/29/16 05:35 12/29/16 05:35 INR, PTT INR 1.12 (0.82-1.09) 12/16/16 12:00 Problem List - Problems (1) Pneumonia Code(s): J18.9 - PNEUMONIA, UNSPECIFIED ORGANISM Qualifiers: Qualified Code(s): J18.9 - Pneumonia, unspecified organism (2) Microcytic anemia Code(s): D50.9 - IRON DEFICIENCY ANEMIA, UNSPECIFIED (3) UTI (urinary tract infection) Code(s): N39.0 - URINARY TRACT INFECTION, SITE NOT SPECIFIED (4) BPH (benign prostatic hyperplasia) Code(s): N40.0 - BENIGN PROSTATIC HYPERPLASIA WITHOUT LOWER URINRY TRACT SYMP (5) CAD (coronary artery disease) Code(s): I25.10 - ATHSCL HEART DISEASE OF [place] CORONARY ARTERY W/O ANG PCTRS (6) CHF (congestive heart failure) Code(s): I50.9 - HEART FAILURE, UNSPECIFIED Qualifiers: Qualified Code(s): I50.23 - Acute on chronic systolic (congestive) heart failure (7) Diabetes Code(s): E11.9 - TYPE 2 DIABETES MELLITUS WITHOUT COMPLICATIONS (8) Respiratory distress Code(s): R06.00 - DYSPNEA, UNSPECIFIED (9) CKD (chronic kidney disease) Code(s): N18.9 - CHRONIC KIDNEY DISEASE, UNSPECIFIED Qualifiers: Qualified Code(s): N18.3 - Chronic kidney disease, stage 3 (moderate) Assessment/Plan STOPPING PLAVIX PER FAMILY RAMIFICATION OF STOPPING PLAVIX OF POSSIBLE CVA/EMBOLI DISCUSSED. STEROIDS IV NEBS 02 SUPPORT POOR PROGNOSIS FAMILY AWARE
[2016-12-31] MEDS: methylPREDNISolone NA SUCC 40 MG/1 ML VIAL IVPB SCH ×4 (03:39→21:36)
[2016-12-31] MEDS: INSULIN SLIDING SCALE (NOVOLOG) 1 VIAL SQ SCH ×4 (06:37→21:40)
[2016-12-31] MEDS: INSULIN DETEMIR 100 UNITS/ML MDV SQ SCH ×2 (06:37→21:40)
[2016-12-31] MEDS: MAG HYDROX/ALH/SMC/DPHA/LIDO 240 ML MOUTHWASH MM SCH ×4 (06:37→21:36)
[2016-12-31] MEDS: AMINO ACIDS/PROTEIN HYDROLYS 30 ML LIQUID.PKT PO SCH ×2 (09:10→17:17)
[2016-12-31] MEDS ORDERED: PT OWN MED DRAWER 7, Y5N ONE ×2 (09:13→21:25)
[2016-12-31] MEDS: METOPROLOL SUCCINATE 25 MG TAB.SR.24H (FP) PO SCH (09:19)
[2016-12-31] MEDS: ZINC SULFATE 220 MG CAPSULE (FP) PO SCH (09:20)
[2016-12-31] MEDS: ASCORBIC ACID 250 MG TABLET (FP) PO SCH ×2 (09:20→21:41)
[2016-12-31] MEDS: ASPIRIN COATED 81 MG TABLET.EC PO SCH (09:20)
[2016-12-31] MEDS: MULTIVITAMINS (DAILY MVI) TABLET (FP) PO SCH (09:20)
[2016-12-31] MEDS: TAMSULOSIN HCL 0.4 MG CAP.ER.24H (FP) PO SCH (09:21)
[2016-12-31] MEDS: PANTOPRAZOLE 40 MG TABLET (FP) PO SCH (09:21)
[2016-12-31] MEDS: FUROSEMIDE 40 MG/4 ML INJECTABLE VIAL IVPB SCH (09:22)
[2016-12-31] MEDS: ARFORMOTEROL TARTRATE 15 MCG/2 ML VIAL NEB SCH ×2 (10:00)
[2016-12-31] MEDS: SILVER SULFADIAZINE 1% TOP CREAM 50 GM JAR TP SCH ×2 (13:00→21:40)
--- NOTE | 2016-12-31 13:23 | PN ---
Progress Note (short form) - Note Progress Note: PULMONARY Now saturating 92% on partial rebreather. Denies fevers, chills. No cough or wheezing. Last Vital Signs Temp Pulse Resp BP Pulse Ox 97.9 F 61 20 142/66 94 L 12/31/16 08:22 12/31/16 08:22 12/31/16 08:22 12/31/16 08:22 12/31/16 06:34 Gen: tachypenic with speaking Heart: RRR Lung: bibasilar rales Abd: soft, nontender Ext: no edema CBC, BMP 12/29/16 05:35 12/29/16 05:35 Active Medications Acetaminophen (Tylenol -) 650 mg PO Q6H PRN PRN Reason: FEVER OR PAIN Last Admin: 12/23/16 21:31 Dose: 650 mg Albuterol/Ipratropium (Duoneb -) 1 amp NEB Q4H PRN PRN Reason: SHORTNESS OF BREATH Amino Acids (Prosource No Carb Liquid Pkt) 30 ml PO BID@0800,1730 [facility] Last Admin: 12/31/16 09:10 Dose: 30 ml Arformoterol Tartrate (Brovana (Restricted To Pulmonology/Resp) -) 1 amp NEB BID [facility] Last Admin: 12/31/16 10:00 Dose: Not Given Ascorbic Acid (Vitamin C -) 250 mg PO BID [facility] Last Admin: 12/31/16 09:20 Dose: 250 mg Aspirin (Ecotrin -) 81 mg PO DAILY [facility] Last Admin: 12/31/16 09:20 Dose: 81 mg Bacitracin (Bacitracin -) 1 applic TP DAILY [facility] Last Admin: 12/30/16 08:59 Dose: 1 applic Collagenase (Santyl -) 1 applic TP DAILY [facility] Last Admin: 12/30/16 09:01 Dose: Not Given Furosemide (Lasix Injection -) 40 mg IVPB DAILY [facility] Last Admin: 12/31/16 09:22 Dose: 40 mg Guaifenesin (Robitussin Dm -) 10 ml PO Q6H PRN PRN Reason: COUGH Insulin Aspart (Novolog Vial Sliding Scale -) 1 vial SQ ACHS [facility] PRN Reason: Protocol Last Admin: 12/31/16 12:43 Dose: 4 units Insulin Detemir (Levemir Vial) 35 units SQ AM [facility] Last Admin: 12/31/16 06:37 Dose: Not Given Insulin Detemir (Levemir Vial) 15 units SQ HS [facility] Last Admin: 12/30/16 22:51 Dose: 15 units Lidocaine/Aluminum/Magnesium/Simeth (Magic Mouthwash *Sjr Formula* -) 5 ml MM Q6HPO [facility] Last Admin: 12/31/16 12:48 Dose: 5 ml Magnesium Hydroxide (Milk Of Magnesia -) 30 ml PO HS PRN PRN Reason: CONSTIPATION Last Admin: 12/19/16 22:08 Dose: 30 ml Methylprednisolone Sodium Succinate (Solu-Medrol -) 40 mg IVPB Q6H-IV [facility] Last Admin: 12/31/16 09:22 Dose: 40 mg Metoprolol Succinate (Toprol Xl -) 25 mg PO DAILY [facility] Last Admin: 12/31/16 09:19 Dose: 25 mg Multivitamins/Minerals/Vitamin C (Tab-A-Vit -) 1 tab PO DAILY [facility] Last Admin: 12/31/16 09:20 Dose: 1 tab Pantoprazole Sodium (Protonix -) 40 mg PO DAILY [facility] Last Admin: 12/31/16 09:21 Dose: 40 mg Silver Sulfadiazine (Silvadene -) 1 applic TP BID [facility] Last Admin: 12/30/16 22:50 Dose: 1 applic Tamsulosin HCl (Flomax -) 0.4 mg PO DAILY@0830 [facility] Last Admin: 12/31/16 09:21 Dose: Not Given Zinc Sulfate (Orazinc -) 220 mg PO DAILY [facility] Last Admin: 12/31/16 09:20 Dose: 220 mg A/P Acute Hypoxic Respiratory Failure Interstitial Lung Disease Pneumonia Acute on Chronic LV Systolic Heart Failure CAD PAD CKD DM - continue medrol at current dose - will discontinue inhaled bronchodilators at pt's request - continue medrol at current dose - O2 to keep Spo2 >90% - BiPAP as needed - lasix - monitor urine output, creatinine - continue discussions regarding goals of care, advanced directives - poor prognosis
[2016-12-31] MEDS: BACITRACIN 15 GM TUBE TOPICAL OINTMENT TP SCH (17:18)
[2016-12-31] MEDS: COLLAGENASE CLOSTRIDIUM HIST. 30 GRAMS TUBE TP SCH (17:19)
--- NOTE | 2016-12-31 17:32 | PN ---
Progress Note, Physician Chief Complaint: AWAKE/BREATHING STILL LABORED ON 02 SUPPORT - Current Medication List Current Medications: Active Medications Acetaminophen (Tylenol -) 650 mg PO Q6H PRN PRN Reason: FEVER OR PAIN Last Admin: 12/23/16 21:31 Dose: 650 mg Amino Acids (Prosource No Carb Liquid Pkt) 30 ml PO BID@0800,1730 [facility] Last Admin: 12/31/16 17:17 Dose: 30 ml Ascorbic Acid (Vitamin C -) 250 mg PO BID [facility] Last Admin: 12/31/16 09:20 Dose: 250 mg Aspirin (Ecotrin -) 81 mg PO DAILY [facility] Last Admin: 12/31/16 09:20 Dose: 81 mg Bacitracin (Bacitracin -) 1 applic TP DAILY [facility] Last Admin: 12/31/16 17:18 Dose: 1 applic Collagenase (Santyl -) 1 applic TP DAILY [facility] Last Admin: 12/31/16 17:19 Dose: Not Given Furosemide (Lasix Injection -) 40 mg IVPB DAILY [facility] Last Admin: 12/31/16 09:22 Dose: 40 mg Guaifenesin (Robitussin Dm -) 10 ml PO Q6H PRN PRN Reason: COUGH Insulin Aspart (Novolog Vial Sliding Scale -) 1 vial SQ ACHS [facility]ON[facility] PRN Reason: Protocol Last Admin: 12/31/16 17:18 Dose: 6 units Insulin Detemir (Levemir Vial) 35 units SQ AM [facility] Last Admin: 12/31/16 06:37 Dose: Not Given Insulin Detemir (Levemir Vial) 15 units SQ HS [facility] Last Admin: 12/30/16 22:51 Dose: 15 units Lidocaine/Aluminum/Magnesium/Simeth (Magic Mouthwash *Sjr Formula* -) 5 ml MM Q6HPO [facility] Last Admin: 12/31/16 12:48 Dose: 5 ml Magnesium Hydroxide (Milk Of Magnesia -) 30 ml PO HS PRN PRN Reason: CONSTIPATION Last Admin: 12/19/16 22:08 Dose: 30 ml Methylprednisolone Sodium Succinate (Solu-Medrol -) 40 mg IVPB Q6H-IV [facility] Last Admin: 12/31/16 15:44 Dose: 40 mg Metoprolol Succinate (Toprol Xl -) 25 mg PO DAILY [facility] Last Admin: 12/31/16 09:19 Dose: 25 mg Multivitamins/Minerals/Vitamin C (Tab-A-Vit -) 1 tab PO DAILY [facility] Last Admin: 12/31/16 09:20 Dose: 1 tab Pantoprazole Sodium (Protonix -) 40 mg PO DAILY [facility] Last Admin: 12/31/16 09:21 Dose: 40 mg Silver Sulfadiazine (Silvadene -) 1 applic TP BID [facility] Last Admin: 12/31/16 13:00 Dose: 1 applic Tamsulosin HCl (Flomax -) 0.4 mg PO DAILY@0830 [facility] Last Admin: 12/31/16 09:21 Dose: Not Given Zinc Sulfate (Orazinc -) 220 mg PO DAILY [facility] Last Admin: 12/31/16 09:20 Dose: 220 mg - Objective Vital Signs: Vital Signs Temperature 97.9 F 12/31/16 08:22 Pulse Rate 64 12/31/16 15:38 Respiratory Rate 21 12/31/16 15:38 Blood Pressure 142/67 12/31/16 15:38 O2 Sat by Pulse Oximetry (%) 90 L 12/31/16 12:15 Constitutional: Yes: Moderate Distress Eyes: Yes: WNL HENT: Yes: WNL Neck: Yes: WNL Cardiovascular: Yes: WNL Respiratory: Yes: Cough, On Venti-Mask, SOB Gastrointestinal: Yes: WNL Genitourinary: Yes: Incontinence Musculoskeletal: Yes: Muscle Weakness Extremities: Yes: WNL Edema: No Peripheral Pulses WNL: Yes Integumentary: Yes: WNL Wound/Incision: Yes: Dressing Dry and Intact Neurological: Yes: Weakness ...Motor Strength: LLE, RLE Psychiatric: Yes: Other Labs: CBC, BMP 12/29/16 05:35 12/29/16 05:35 INR, PTT INR 1.12 (0.82-1.09) 12/16/16 12:00 Problem List - Problems (1) Pneumonia Code(s): J18.9 - PNEUMONIA, UNSPECIFIED ORGANISM Qualifiers: Qualified Code(s): J18.9 - Pneumonia, unspecified organism (2) Microcytic anemia Code(s): D50.9 - IRON DEFICIENCY ANEMIA, UNSPECIFIED (3) UTI (urinary tract infection) Code(s): N39.0 - URINARY TRACT INFECTION, SITE NOT SPECIFIED (4) BPH (benign prostatic hyperplasia) Code(s): N40.0 - BENIGN PROSTATIC HYPERPLASIA WITHOUT LOWER URINRY TRACT SYMP (5) CAD (coronary artery disease) Code(s): I25.10 - ATHSCL HEART DISEASE OF [place] CORONARY ARTERY W/O ANG PCTRS (6) CHF (congestive heart failure) Code(s): I50.9 - HEART FAILURE, UNSPECIFIED Qualifiers: Qualified Code(s): I50.23 - Acute on chronic systolic (congestive) heart failure (7) Diabetes Code(s): E11.9 - TYPE 2 DIABETES MELLITUS WITHOUT COMPLICATIONS (8) Respiratory distress Code(s): R06.00 - DYSPNEA, UNSPECIFIED (9) CKD (chronic kidney disease) Code(s): N18.9 - CHRONIC KIDNEY DISEASE, UNSPECIFIED Qualifiers: Qualified Code(s): N18.3 - Chronic kidney disease, stage 3 (moderate) Assessment/Plan STOPPING PLAVIX PER FAMILY RAMIFICATION OF STOPPING PLAVIX OF POSSIBLE CVA/EMBOLI DISCUSSED. STEROIDS IV NEBS 02 SUPPORT POOR PROGNOSIS FAMILY AWARE
[2017-01-01] MEDS: MAG HYDROX/ALH/SMC/DPHA/LIDO 240 ML MOUTHWASH MM SCH ×5 (00:15→23:00)
[2017-01-01] MEDS: methylPREDNISolone NA SUCC 40 MG/1 ML VIAL IVPB SCH ×4 (03:30→21:31)
[2017-01-01] MEDS: INSULIN SLIDING SCALE (NOVOLOG) 1 VIAL SQ SCH ×4 (06:58→21:30)
[2017-01-01] MEDS: INSULIN DETEMIR 100 UNITS/ML MDV SQ SCH ×2 (07:20→21:30)
[2017-01-01] MEDS: PANTOPRAZOLE 40 MG TABLET (FP) PO SCH (09:29)
[2017-01-01] MEDS: ASPIRIN COATED 81 MG TABLET.EC PO SCH (09:29)
[2017-01-01] MEDS: FUROSEMIDE 40 MG/4 ML INJECTABLE VIAL IVPB SCH (09:29)
[2017-01-01] MEDS: METOPROLOL SUCCINATE 25 MG TAB.SR.24H (FP) PO SCH (09:29)
[2017-01-01] MEDS: MULTIVITAMINS (DAILY MVI) TABLET (FP) PO SCH (09:29)
[2017-01-01] MEDS: ZINC SULFATE 220 MG CAPSULE (FP) PO SCH (09:29)
[2017-01-01] MEDS: AMINO ACIDS/PROTEIN HYDROLYS 30 ML LIQUID.PKT PO SCH ×2 (09:29→17:24)
[2017-01-01] MEDS: ASCORBIC ACID 250 MG TABLET (FP) PO SCH ×2 (09:30→21:31)
[2017-01-01] MEDS: TAMSULOSIN HCL 0.4 MG CAP.ER.24H (FP) PO SCH (09:30)
[2017-01-01] MEDS: BACITRACIN 15 GM TUBE TOPICAL OINTMENT TP SCH (09:30)
[2017-01-01] MEDS: COLLAGENASE CLOSTRIDIUM HIST. 30 GRAMS TUBE TP SCH (09:30)
[2017-01-01] MEDS: SILVER SULFADIAZINE 1% TOP CREAM 50 GM JAR TP SCH ×2 (09:31→21:31)
--- NOTE | 2017-01-01 11:25 | PN ---
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 I EXPLAINED IMPORTANCE OF RATE CONTROL AND CARDIAC PROTECTION HOWEVER THEY DEMANDED IT BE STOPPED. - Current Medication List Current Medications: Active Medications Acetaminophen (Tylenol -) 650 mg PO Q6H PRN PRN Reason: FEVER OR PAIN Last Admin: 12/23/16 21:31 Dose: 650 mg Amino Acids (Prosource No Carb Liquid Pkt) 30 ml PO BID@0800,1730 [facility]ON[facility] Last Admin: 01/01/17 09:29 Dose: 30 ml Ascorbic Acid (Vitamin C -) 250 mg PO BID [facility] Last Admin: 01/01/17 09:30 Dose: Not Given Aspirin (Ecotrin -) 81 mg PO DAILY [facility] Last Admin: 01/01/17 09:29 Dose: 81 mg Bacitracin (Bacitracin -) 1 applic TP DAILY [facility] Last Admin: 01/01/17 09:30 Dose: 1 applic Collagenase (Santyl -) 1 applic TP DAILY [facility] Last Admin: 01/01/17 09:30 Dose: 1 applic Furosemide (Lasix Injection -) 40 mg IVPB DAILY [facility] Last Admin: 01/01/17 09:29 Dose: 40 mg Guaifenesin (Robitussin Dm -) 10 ml PO Q6H PRN PRN Reason: COUGH Insulin Aspart (Novolog Vial Sliding Scale -) 1 vial SQ ACHS JONAS PRN Reason: Protocol Last Admin: 01/01/17 06:58 Dose: 2 units Insulin Detemir (Levemir Vial) 35 units SQ AM [facility] Last Admin: 01/01/17 07:20 Dose: 35 units Insulin Detemir (Levemir Vial) 15 units SQ HS [facility] Last Admin: 12/31/16 21:40 Dose: 15 units Lidocaine/Aluminum/Magnesium/Simeth (Magic Mouthwash *Sjr Formula* -) 5 ml MM Q6HPO [facility]ON[facility] Last Admin: 01/01/17 06:57 Dose: 5 ml Magnesium Hydroxide (Milk Of Magnesia -) 30 ml PO HS PRN PRN Reason: CONSTIPATION Last Admin: 12/19/16 22:08 Dose: 30 ml Methylprednisolone Sodium Succinate (Solu-Medrol -) 40 mg IVPB Q6H-IV [facility] Last Admin: 01/01/17 09:29 Dose: 40 mg Multivitamins/Minerals/Vitamin C (Tab-A-Vit -) 1 tab PO DAILY [facility] Last Admin: 01/01/17 09:29 Dose: 1 tab Pantoprazole Sodium (Protonix -) 40 mg PO DAILY [facility] Last Admin: 01/01/17 09:29 Dose: 40 mg Silver Sulfadiazine (Silvadene -) 1 applic TP BID [facility] Last Admin: 01/01/17 09:31 Dose: Not Given Simethicone (Mylicon -) 80 mg PO Q4H PRN PRN Reason: GAS Tamsulosin HCl (Flomax -) 0.4 mg PO DAILY@0830 [facility] Last Admin: 01/01/17 09:30 Dose: 0.4 mg Zinc Sulfate (Orazinc -) 220 mg PO DAILY [facility] Last Admin: 01/01/17 09:29 Dose: 220 mg - Objective Vital Signs: Vital Signs Temperature 96.6 F L 01/01/17 07:30 Pulse Rate 63 01/01/17 07:30 Respiratory Rate 20 01/01/17 07:30 Blood Pressure 142/69 01/01/17 07:30 O2 Sat by Pulse Oximetry (%) 94 L 12/31/16 22:00 Constitutional: Yes: Mild Distress Eyes: Yes: WNL HENT: Yes: WNL Neck: Yes: WNL Cardiovascular: Yes: WNL Respiratory: Yes: On Venti-Mask, Rhonchi, SOB Gastrointestinal: Yes: WNL Genitourinary: Yes: Incontinence Musculoskeletal: Yes: Muscle Weakness Extremities: Yes: Other Edema: No Peripheral Pulses WNL: Yes Integumentary: Yes: WNL Wound/Incision: Yes: Clean/Dry Neurological: Yes: Other ...Motor Strength: LLE, RLE Psychiatric: Yes: Other Labs: CBC, BMP 12/29/16 05:35 12/29/16 05:35 INR, PTT INR 1.12 (0.82-1.09) 12/16/16 12:00 Problem List - Problems (1) Pneumonia Code(s): J18.9 - PNEUMONIA, UNSPECIFIED ORGANISM Qualifiers: Qualified Code(s): J18.9 - Pneumonia, unspecified organism (2) Microcytic anemia Code(s): D50.9 - IRON DEFICIENCY ANEMIA, UNSPECIFIED (3) UTI (urinary tract infection) Code(s): N39.0 - URINARY TRACT INFECTION, SITE NOT SPECIFIED (4) BPH (benign prostatic hyperplasia) Code(s): N40.0 - BENIGN PROSTATIC HYPERPLASIA WITHOUT LOWER URINRY TRACT SYMP (5) CAD (coronary artery disease) Code(s): I25.10 - ATHSCL HEART DISEASE OF [place] CORONARY ARTERY W/O ANG PCTRS (6) CHF (congestive heart failure) Code(s): I50.9 - HEART FAILURE, UNSPECIFIED Qualifiers: Qualified Code(s): I50.23 - Acute on chronic systolic (congestive) heart failure (7) Diabetes Code(s): E11.9 - TYPE 2 DIABETES MELLITUS WITHOUT COMPLICATIONS (8) Respiratory distress Code(s): R06.00 - DYSPNEA, UNSPECIFIED (9) CKD (chronic kidney disease) Code(s): N18.9 - CHRONIC KIDNEY DISEASE, UNSPECIFIED Qualifiers: Qualified Code(s): N18.3 - Chronic kidney disease, stage 3 (moderate) Assessment/Plan STOPPING PLAVIX PER FAMILY STOPPING METOPROLOL PER FAMILY DC TELE MEDSX PRIVATE ROOM RAMIFICATION OF STOPPING PLAVIX OF POSSIBLE CVA/EMBOLI DISCUSSED. STEROIDS IV NEBS 02 SUPPORT POOR PROGNOSIS FAMILY AWARE
--- NOTE | 2017-01-01 14:14 | PN ---
Progress Note (short form) - Note Progress Note: PULMONARY Now saturating 95% on partial rebreather. Denies fevers, chills. No cough or wheezing. Last Vital Signs Temp Pulse Resp BP Pulse Ox 96.6 F L 63 20 142/69 97 01/01/17 07:30 01/01/17 07:30 01/01/17 07:30 01/01/17 07:30 01/01/17 11:55 Gen: tachypenic with speaking Heart: RRR Lung: bibasilar rales Abd: soft, nontender Ext: no edema CBC, BMP 12/29/16 05:35 12/29/16 05:35 Active Medications Acetaminophen (Tylenol -) 650 mg PO Q6H PRN PRN Reason: FEVER OR PAIN Last Admin: 12/23/16 21:31 Dose: 650 mg Amino Acids (Prosource No Carb Liquid Pkt) 30 ml PO BID@0800,1730 [facility] Last Admin: 01/01/17 09:29 Dose: 30 ml Ascorbic Acid (Vitamin C -) 250 mg PO BID [facility] Last Admin: 01/01/17 09:30 Dose: Not Given Aspirin (Ecotrin -) 81 mg PO DAILY [facility] Last Admin: 01/01/17 09:29 Dose: 81 mg Bacitracin (Bacitracin -) 1 applic TP DAILY [facility] Last Admin: 01/01/17 09:30 Dose: 1 applic Collagenase (Santyl -) 1 applic TP DAILY [facility] Last Admin: 01/01/17 09:30 Dose: 1 applic Furosemide (Lasix Injection -) 40 mg IVPB DAILY [facility] Last Admin: 01/01/17 09:29 Dose: 40 mg Guaifenesin (Robitussin Dm -) 10 ml PO Q6H PRN PRN Reason: COUGH Insulin Aspart (Novolog Vial Sliding Scale -) 1 vial SQ ACHS JONAS PRN Reason: Protocol Last Admin: 01/01/17 12:07 Dose: 6 units Insulin Detemir (Levemir Vial) 35 units SQ AM [facility] Last Admin: 01/01/17 07:20 Dose: 35 units Insulin Detemir (Levemir Vial) 15 units SQ HS [facility] Last Admin: 12/31/16 21:40 Dose: 15 units Lidocaine/Aluminum/Magnesium/Simeth (Magic Mouthwash *Sjr Formula* -) 5 ml MM Q6HPO [facility] Last Admin: 01/01/17 12:07 Dose: 5 ml Magnesium Hydroxide (Milk Of Magnesia -) 30 ml PO HS PRN PRN Reason: CONSTIPATION Last Admin: 12/19/16 22:08 Dose: 30 ml Methylprednisolone Sodium Succinate (Solu-Medrol -) 40 mg IVPB Q6H-IV [facility] Last Admin: 01/01/17 09:29 Dose: 40 mg Multivitamins/Minerals/Vitamin C (Tab-A-Vit -) 1 tab PO DAILY [facility] Last Admin: 01/01/17 09:29 Dose: 1 tab Pantoprazole Sodium (Protonix -) 40 mg PO DAILY [facility] Last Admin: 01/01/17 09:29 Dose: 40 mg Silver Sulfadiazine (Silvadene -) 1 applic TP BID [facility] Last Admin: 01/01/17 09:31 Dose: Not Given Simethicone (Mylicon -) 80 mg PO Q4H PRN PRN Reason: GAS Tamsulosin HCl (Flomax -) 0.4 mg PO DAILY@0830 [facility] Last Admin: 01/01/17 09:30 Dose: 0.4 mg Zinc Sulfate (Orazinc -) 220 mg PO DAILY [facility] Last Admin: 01/01/17 09:29 Dose: 220 mg A/P Acute Hypoxic Respiratory Failure Interstitial Lung Disease Pneumonia Acute on Chronic LV Systolic Heart Failure CAD PAD CKD DM - continue medrol at current dose - discontinued inhaled bronchodilators at pt's request - continue medrol at current dose - O2 to keep Spo2 >90% - BiPAP as needed - lasix - monitor urine output, creatinine - continue discussions regarding goals of care, advanced directives - poor prognosis
[2017-01-01] MEDS: SIMETHICONE 80 MG TAB.CHEW (FP) PO PRN (21:44)
[2017-01-02] MEDS: methylPREDNISolone NA SUCC 40 MG/1 ML VIAL IVPB SCH ×4 (03:15→20:19)
[2017-01-02] MEDS: MAG HYDROX/ALH/SMC/DPHA/LIDO 240 ML MOUTHWASH MM SCH ×3 (05:51→18:19)
[2017-01-02] MEDS: INSULIN SLIDING SCALE (NOVOLOG) 1 VIAL SQ SCH ×4 (06:21→22:07)
[2017-01-02] MEDS: AMINO ACIDS/PROTEIN HYDROLYS 30 ML LIQUID.PKT PO SCH ×2 (08:02→18:21)
[2017-01-02] MEDS: TAMSULOSIN HCL 0.4 MG CAP.ER.24H (FP) PO SCH (08:02)
[2017-01-02] MEDS: INSULIN DETEMIR 100 UNITS/ML MDV SQ SCH ×2 (08:02→22:06)
[2017-01-02] MEDS ORDERED: PT OWN MED DRAWER 7, Y5N ONE (09:05)
[2017-01-02] MEDS: PANTOPRAZOLE 40 MG TABLET (FP) PO SCH (09:16)
[2017-01-02] MEDS: BACITRACIN 15 GM TUBE TOPICAL OINTMENT TP SCH (09:16)
[2017-01-02] MEDS: COLLAGENASE CLOSTRIDIUM HIST. 30 GRAMS TUBE TP SCH (09:16)
[2017-01-02] MEDS: FUROSEMIDE 40 MG/4 ML INJECTABLE VIAL IVPB SCH (09:16)
[2017-01-02] MEDS: ASPIRIN COATED 81 MG TABLET.EC PO SCH (09:16)
[2017-01-02] MEDS: MULTIVITAMINS (DAILY MVI) TABLET (FP) PO SCH (09:16)
[2017-01-02] MEDS: ZINC SULFATE 220 MG CAPSULE (FP) PO SCH (09:16)
[2017-01-02] MEDS: SILVER SULFADIAZINE 1% TOP CREAM 50 GM JAR TP SCH (09:17)
[2017-01-02] MEDS: ASCORBIC ACID 250 MG TABLET (FP) PO SCH ×2 (09:17→22:04)
--- NOTE | 2017-01-02 12:33 | PN ---
Progress Note, Physician History of Present Illness: pulmonary awake,dyspneic on bipap.chest x-ray + small left ptx - Current Medication List Current Medications: Active Medications Acetaminophen (Tylenol -) 650 mg PO Q6H PRN PRN Reason: FEVER OR PAIN Last Admin: 12/23/16 21:31 Dose: 650 mg Amino Acids (Prosource No Carb Liquid Pkt) 30 ml PO BID@0800,1730 [facility] Last Admin: 01/02/17 08:02 Dose: 30 ml Ascorbic Acid (Vitamin C -) 250 mg PO BID [facility] Last Admin: 01/02/17 09:17 Dose: Not Given Aspirin (Ecotrin -) 81 mg PO DAILY [facility] Last Admin: 01/02/17 09:16 Dose: 81 mg Bacitracin (Bacitracin -) 1 applic TP DAILY [facility] Last Admin: 01/02/17 09:16 Dose: 1 applic Collagenase (Santyl -) 1 applic TP DAILY [facility] Last Admin: 01/02/17 09:16 Dose: 1 applic Furosemide (Lasix Injection -) 40 mg IVPB DAILY [facility] Last Admin: 01/02/17 09:16 Dose: 40 mg Guaifenesin (Robitussin Dm -) 10 ml PO Q6H PRN PRN Reason: COUGH Insulin Aspart (Novolog Vial Sliding Scale -) 1 vial SQ ACHS JONAS PRN Reason: Protocol Last Admin: 01/02/17 06:21 Dose: Not Given Insulin Detemir (Levemir Vial) 35 units SQ AM [facility] Last Admin: 01/02/17 08:02 Dose: 35 units Insulin Detemir (Levemir Vial) 15 units SQ HS [facility] Last Admin: 01/01/17 21:30 Dose: Not Given Lidocaine/Aluminum/Magnesium/Simeth (Magic Mouthwash *Sjr Formula* -) 5 ml MM Q6HPO [facility]ON[facility] Last Admin: 01/02/17 05:51 Dose: Not Given Magnesium Hydroxide (Milk Of Magnesia -) 30 ml PO HS PRN PRN Reason: CONSTIPATION Last Admin: 12/19/16 22:08 Dose: 30 ml Methylprednisolone Sodium Succinate (Solu-Medrol -) 40 mg IVPB Q6H-IV [facility] Last Admin: 01/02/17 09:16 Dose: 40 mg Multivitamins/Minerals/Vitamin C (Tab-A-Vit -) 1 tab PO DAILY [facility] Last Admin: 01/02/17 09:16 Dose: 1 tab Pantoprazole Sodium (Protonix -) 40 mg PO DAILY [facility] Last Admin: 01/02/17 09:16 Dose: 40 mg Silver Sulfadiazine (Silvadene -) 1 applic TP BID [facility] Last Admin: 01/02/17 09:17 Dose: Not Given Simethicone (Mylicon -) 80 mg PO Q4H PRN PRN Reason: GAS Last Admin: 01/01/17 21:44 Dose: 80 mg Tamsulosin HCl (Flomax -) 0.4 mg PO DAILY@0830 [facility] Last Admin: 01/02/17 08:02 Dose: 0.4 mg Zinc Sulfate (Orazinc -) 220 mg PO DAILY [facility] Last Admin: 01/02/17 09:16 Dose: 220 mg - Objective Vital Signs: Vital Signs Temperature 97.6 F 01/02/17 10:00 Pulse Rate 66 01/02/17 10:00 Respiratory Rate 20 01/02/17 10:00 Blood Pressure 150/70 01/02/17 10:00 O2 Sat by Pulse Oximetry (%) 92 L 01/02/17 10:00 Constitutional: Yes: Mild Distress, Thin Eyes: Yes: WNL HENT: Yes: WNL Neck: Yes: WNL Cardiovascular: Yes: Regular Rate and Rhythm, S1, S2 Respiratory: Yes: Rhonchi (few scattered rhonchi) Gastrointestinal: Yes: Normal Bowel Sounds, Soft Extremities: Yes: WNL Edema: No Labs: CBC, BMP 12/29/16 05:35 12/29/16 05:35 INR, PTT INR 1.12 (0.82-1.09) 12/16/16 12:00 Problem List - Problems (1) Acute hypoxemic respiratory failure Code(s): J96.01 - ACUTE RESPIRATORY FAILURE WITH HYPOXIA Assessment/Plan Problem List - Problems (1) CKD (chronic kidney disease) Code(s): N18.9 - CHRONIC KIDNEY DISEASE, UNSPECIFIED (2) PAD (peripheral artery disease) Code(s): I73.9 - PERIPHERAL VASCULAR DISEASE, UNSPECIFIED (3) Pneumonia Code(s): J18.9 - PNEUMONIA, UNSPECIFIED ORGANISM Qualifiers: Pneumonia type: due to unspecified organism Laterality: bilateral Lung location: unspecified part of lung Qualified Code(s): J18.9 - Pneumonia, unspecified organism (4) Respiratory distress Code(s): R06.00 - DYSPNEA, UNSPECIFIED (5) Microcytic anemia Code(s): D50.9 - IRON DEFICIENCY ANEMIA, UNSPECIFIED (6) BPH (benign prostatic hyperplasia) Code(s): N40.0 - BENIGN PROSTATIC HYPERPLASIA WITHOUT LOWER URINRY TRACT SYMP (7) CAD (coronary artery disease) Code(s): I25.10 - ATHSCL HEART DISEASE OF [place] CORONARY ARTERY W/O ANG PCTRS Qualifiers: Associated angina: with unspecified angina (8) CHF (congestive heart failure) Code(s): I50.9 - HEART FAILURE, UNSPECIFIED Qualifiers: Congestive heart failure type: systolic Congestive heart failure chronicity: acute on chronic Qualified Code(s): I50.23 - Acute on chronic systolic (congestive) heart failure (9) Diabetes Code(s): E11.9 - TYPE 2 DIABETES MELLITUS WITHOUT COMPLICATIONS Qualifiers: Diabetes mellitus complication status: with other specified complication 10 ACUTE HYPOXEMIC RESPIRATORY FAILURE I1. 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
--- NOTE | 2017-01-02 17:34 | PN ---
Progress Note, Physician Chief Complaint: sent to ICU for acute pneumothorax patient in resp distress - Current Medication List Current Medications: Active Medications Acetaminophen (Tylenol -) 650 mg PO Q6H PRN PRN Reason: FEVER OR PAIN Last Admin: 12/23/16 21:31 Dose: 650 mg Amino Acids (Prosource No Carb Liquid Pkt) 30 ml PO BID@0800,1730 [facility] Last Admin: 01/02/17 08:02 Dose: 30 ml Ascorbic Acid (Vitamin C -) 250 mg PO BID [facility] Last Admin: 01/02/17 09:17 Dose: Not Given Aspirin (Ecotrin -) 81 mg PO DAILY [facility] Last Admin: 01/02/17 09:16 Dose: 81 mg Bacitracin (Bacitracin -) 1 applic TP DAILY [facility] Last Admin: 01/02/17 09:16 Dose: 1 applic Collagenase (Santyl -) 1 applic TP DAILY [facility] Last Admin: 01/02/17 09:16 Dose: 1 applic Furosemide (Lasix Injection -) 40 mg IVPB DAILY [facility] Last Admin: 01/02/17 09:16 Dose: 40 mg Guaifenesin (Robitussin Dm -) 10 ml PO Q6H PRN PRN Reason: COUGH Insulin Aspart (Novolog Vial Sliding Scale -) 1 vial SQ ACHS JONAS PRN Reason: Protocol Last Admin: 01/02/17 13:09 Dose: Not Given Insulin Detemir (Levemir Vial) 35 units SQ AM [facility] Last Admin: 01/02/17 08:02 Dose: 35 units Insulin Detemir (Levemir Vial) 15 units SQ HS [facility] Last Admin: 01/01/17 21:30 Dose: Not Given Lidocaine/Aluminum/Magnesium/Simeth (Magic Mouthwash *Sjr Formula* -) 5 ml MM Q6HPO [facility] Last Admin: 01/02/17 12:00 Dose: 5 ml Magnesium Hydroxide (Milk Of Magnesia -) 30 ml PO HS PRN PRN Reason: CONSTIPATION Last Admin: 12/19/16 22:08 Dose: 30 ml Methylprednisolone Sodium Succinate (Solu-Medrol -) 40 mg IVPB Q6H-IV [facility] Last Admin: 01/02/17 15:31 Dose: 40 mg Multivitamins/Minerals/Vitamin C (Tab-A-Vit -) 1 tab PO DAILY [facility] Last Admin: 01/02/17 09:16 Dose: 1 tab Pantoprazole Sodium (Protonix -) 40 mg PO DAILY [facility] Last Admin: 01/02/17 09:16 Dose: 40 mg Silver Sulfadiazine (Silvadene -) 1 applic TP BID [facility] Last Admin: 01/02/17 09:17 Dose: Not Given Simethicone (Mylicon -) 80 mg PO Q4H PRN PRN Reason: GAS Last Admin: 01/01/17 21:44 Dose: 80 mg Tamsulosin HCl (Flomax -) 0.4 mg PO DAILY@0830 [facility] Last Admin: 01/02/17 08:02 Dose: 0.4 mg Zinc Sulfate (Orazinc -) 220 mg PO DAILY [facility] Last Admin: 01/02/17 09:16 Dose: 220 mg - Objective Vital Signs: Vital Signs Temperature 97.6 F 01/02/17 10:00 Pulse Rate 65 01/02/17 15:00 Respiratory Rate 22 01/02/17 15:00 Blood Pressure 130/53 01/02/17 15:00 O2 Sat by Pulse Oximetry (%) 89 L 01/02/17 11:05 Constitutional: Yes: Moderate Distress Eyes: Yes: WNL HENT: Yes: WNL Neck: Yes: WNL Cardiovascular: Yes: Tachycardia Respiratory: Yes: On Venti-Mask, Poor Air Entry, SOB, SOB on Exertion Gastrointestinal: Yes: WNL Genitourinary: Yes: Incontinence Musculoskeletal: Yes: Muscle Weakness Extremities: Yes: Other Edema: No Peripheral Pulses WNL: Yes Integumentary: Yes: Rash Wound/Incision: Yes: Open to air Neurological: Yes: Other ...Motor Strength: LLE, RLE Psychiatric: Yes: WNL Labs: CBC, BMP 12/29/16 05:35 12/29/16 05:35 INR, PTT INR 1.12 (0.82-1.09) 12/16/16 12:00 Problem List - Problems (1) Pneumonia Code(s): J18.9 - PNEUMONIA, UNSPECIFIED ORGANISM Qualifiers: Qualified Code(s): J18.9 - Pneumonia, unspecified organism (2) Microcytic anemia Code(s): D50.9 - IRON DEFICIENCY ANEMIA, UNSPECIFIED (3) UTI (urinary tract infection) Code(s): N39.0 - URINARY TRACT INFECTION, SITE NOT SPECIFIED (4) BPH (benign prostatic hyperplasia) Code(s): N40.0 - BENIGN PROSTATIC HYPERPLASIA WITHOUT LOWER URINRY TRACT SYMP (5) CAD (coronary artery disease) Code(s): I25.10 - ATHSCL HEART DISEASE OF [place] CORONARY ARTERY W/O ANG PCTRS (6) CHF (congestive heart failure) Code(s): I50.9 - HEART FAILURE, UNSPECIFIED Qualifiers: Qualified Code(s): I50.23 - Acute on chronic systolic (congestive) heart failure (7) Diabetes Code(s): E11.9 - TYPE 2 DIABETES MELLITUS WITHOUT COMPLICATIONS (8) Respiratory distress Code(s): R06.00 - DYSPNEA, UNSPECIFIED (9) CKD (chronic kidney disease) Code(s): N18.9 - CHRONIC KIDNEY DISEASE, UNSPECIFIED Qualifiers: Qualified Code(s): N18.3 - Chronic kidney disease, stage 3 (moderate) Assessment/Plan acute pneumothorax IR for chest tube failed send to ICU resp support poor prognosis overall steroids iv nebs
--- NOTE | 2017-01-02 20:22 | CONSULT ---
Consult Consult Specialty:: Pulmonary critical care Reason for Consultation:: respiratory distress - History of Present Illness Chief Complaint: shortness of breath History of Present Illness: This is an 81 year old man with CAD s/p CABG, CKD, CAD, CHF, ?ILD admitted initially on 12/16 with respiratory insufficiency secondary to volume CHF and presumed pneumonia. Patient had pneumonia back in July treated at OSH and his reports he has experienced dyspnea on exertion and shortness of breath since that time. 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 For his CHF and volume overload he has been treated with diuretics, anti-hypertensives, and bronchodilators. For ?ILD he is treated with steroids. S/p empiric antibiotic coverage. Patient improved with these interventions and he was able to leave the ICU and was admitted to Telemetry. Over the past 24 hours patient had worsening shortness of breath. Chest x-ray revealed new L apical pneumothorax. He went to IR for chest tube placement, however this was not successful. He arrives to the ICU with mild respiratory distress, using accessory muscles. Patient on non-rebreather with SpO2 100%. Hemodynamics are stable. +pressure ulcer noted to R heel. In the case of respiratory failure, patient and his agree to trial of intubation. Poor prognosis re-emphasized. - History Source History Provided By: Patient, Family Member Limitations to Obtaining History: No Limitations - Past Medical History DIDACTIC INSTRUCTOR: Yes: CVA, Syncope Cardio/Vascular: Yes: CAD, Other (CABG/PCI STENT 2) Pulmonary: Yes: Other Gastrointestinal: Yes: Other Renal/: Yes: BPH, UTI Endocrine: Yes: Diabetes Mellitus - Past Surgical History Past Surgical History: Yes: CABG, TURP - Alcohol/Substance Use Hx Alcohol Use: No History of Substance Use: reports: None - Smoking History Smoking history: Never smoked Have you smoked in the past 12 months: No - Social History ADL: Independent History of Recent Travel: No Home Medications - Allergies Allergies/Adverse Reactions: Allergies Allergy/AdvReac Type Severity Reaction Status Date / Time No Known Drug Allergies Allergy Verified 12/22/16 15:56 banana Allergy Unknown Uncoded 12/22/16 13:41 tomato AdvReac Unknown Uncoded 12/22/16 13:42 - Home Medications Home Medications: Ambulatory Orders Aspirin [ASA -] 81 mg PO DAILY tab.chew 08/10/16 Budesonide [Pulmicort 0.25 mg -] 1 neb PO BID 12/16/16 Clopidogrel Bisulfate [Plavix -] 75 mg PO DAILY 12/16/16 Collagenase Clostridium Hist. [Santyl] 1 applic TP DAILY 12/16/16 Flunisolide 25 ml NS BID 12/16/16 Heparin - 5,000 unit SQ BID 12/16/16 Insulin Glargine,Hum.rec.anlog [Lantus (nf)] 40 units SQ HS 12/16/16 Insulin Lispro [Humalog] 0 unit SQ AC 12/16/16 Ipratropium/Albuterol Sulfate [Iprat-Albut 0.5-3(2.5) mg/3 ml] 3 ml IH QID 12/16 Oxycodone HCl/Acetaminophen [Oxycodone-Acetaminophen 5-325] 1 each PO QID PRN Pantoprazole Sodium 40 mg PO DAILY 12/16/16 Prednisone [Deltasone -] 20 mg PO DAILY 12/16/16 Sennosides [Senokot] 8.6 mg PO HS 12/16/16 Tamsulosin HCl [Flomax] 0.4 mg PO DAILY 12/16/16 Review of Systems - Review of Systems Constitutional: reports: No Symptoms Eyes: reports: No Symptoms HENT: reports: No Symptoms Neck: reports: No Symptoms Cardiovascular: reports: Shortness of Breath Respiratory: reports: Exercise Intolerance, SOB, SOB on Exertion Gastrointestinal: reports: No Symptoms Genitourinary: reports: No Symptoms Musculoskeletal: reports: No Symptoms Integumentary: reports: No Symptoms Neurological: reports: No Symptoms Endocrine: reports: No Symptoms Hematology/Lymphatic: reports: No Symptoms Psychiatric: reports: No Symptoms Physical Exam Vital Signs: Vital Signs Temperature 97.5 F L 01/02/17 17:39 Pulse Rate 65 01/02/17 17:39 Respiratory Rate 17 01/02/17 17:39 Blood Pressure 162/66 01/02/17 17:39 O2 Sat by Pulse Oximetry (%) 97 01/02/17 18:10 Eyes: Yes: PERRL HENT: Yes: WNL Neck: Yes: WNL Cardiovascular: Yes: Regular Rate and Rhythm Respiratory: Yes: Accessory Muscle Use, SOB Gastrointestinal: Yes: Normal Bowel Sounds, Soft Renal/: Yes: WNL Musculoskeletal: Yes: WNL Edema: LUE: Trace, RUE: Trace, LLE: Trace, RLE: Trace Integumentary: Yes: Pressure Ulcer Wound/Incision: Yes: Clean/Dry Neurological: Yes: Alert, Oriented ...Motor Strength: WNL Psychiatric: Yes: WNL Labs: CBC, BMP 12/29/16 05:35 12/29/16 05:35 Assessment/Plan This is an 81 year old with respiratory insufficiency secondary to underlying lung disease ?ILD, CHF and volume overload, presents with respiratory worsening secondary to new L apical pneumothorax. Pulm: Hypoxic respiratory insufficiency secondary to volume overload and underlying chronic lung disease, new L apical pneumothorax -100% non-rebreather (continue for reabsorption of PTX) -Bronchodilators -Methylpred -Monitor pneumothorax (f/u repeat CXR) -SpO2 monitoring -Monitor for need for intubation CV: CHF and volume overload; CAD s/p CABG -Lasix for goal negative -Monitor hemodynamics -Aspirin ID: Appears non-infectious at this time, however note uptrending WBC -Defer abx for now, low threshold to re-introduce -F/u kapadia cultures -Trend WBC -Monitor for fevers GI: Aspiration risk; malnourished -Aspiration precautions -Simethicone -Pantoprazole -Multivitamins Renal: Acute on chronic renal failure -F/u BUN:Cr -Is and Os Would continue goals of care discussions and re-emphasize poor overall prognosis. Thank you for this consult. Danielle Bradshaw, NURAP
[2017-01-02 20:54] LABS: BASOPHIL 0.4 % (0-2.0); MCH 29.4 pg (25.7-33.7); MEAN CELL VOLUME 89.2 fl (80-96); MEAN PLT VOLUME 8.5 fl (7.5-11.1); NEUTROPHILS 94.1 % (42.8-82.8); PLATELET COUNT 249 K/MM3 (134-434); RDW 14.2 % (11.9-15.9); WHITE BLOOD COUNT 19.5 K/mm3 (4.0-10.0)
[2017-01-02 21:13] LABS: INR 1.19 (0.82-1.09); PROTHROMBIN TIME (PATIENT) 13.1 SEC (9.98-11.88)
[2017-01-02 21:15] LABS: ACTIVATED PTT 25.1 SECONDS (26.9-34.4)
[2017-01-02 21:24] LABS: BILIRUBIN,TOTAL 0.6 mg/dL (0.2-1.0); TOT PROT 5.9 g/dl (6.4-8.2)
[2017-01-02 21:32] LABS: ALBUMIN 2.4 g/dl (3.4-5.0); CALCIUM 8.2 mg/dL (8.5-10.1); COCKROFT - GAULT 38.88; CREATININE 1.4 mg/dL (0.7-1.3); MAGNESIUM 2.3 mg/dL (1.8-2.4)
[2017-01-02 21:34] LABS: ALBUMIN 2.4 g/dl (3.4-5.0); BILIRUBIN,DIRECT 0.3 mg/dL (0.0-0.2); BILIRUBIN,TOTAL 0.6 mg/dL (0.2-1.0); CREATININE 1.4 mg/dL (0.7-1.3); TOT PROT 5.8 g/dl (6.4-8.2)
[2017-01-02 22:20] LABS: ARTERIAL BLD GAS O2 SATURATION 94.6 % (90-98.9); ARTERIAL BLOOD GAS BASE EXCESS 8.1 meq/l (-2-2); ARTERIAL BLOOD GAS HCO3 32.3 meq/L (22-26); ARTERIAL BLOOD GAS PO2 89.3 mmHg (68-100); ARTERIAL BLOOD GAS pH 7.49 (7.35-7.45)
[2017-01-02 22:22] LABS: ART PUNCT SITE RIGHT BRACHIAL; LPM/O2% 100; PT. ON O2? YES; TYPE OF O2 NON REBREATHER
[2017-01-02 23:07] LABS: URINE APPEARANCE CLEAR; URINE BILIRUBIN NEGATIVE (NEGATIVE); URINE BLOOD NEGATIVE (NEGATIVE); URINE COLOR LTYELLOW; URINE GLUCOSE (UA) 1+ (NEGATIVE); URINE KETONE NEGATIVE (NEGATIVE); URINE LEUK ESTERASE 1+ (NEGATIVE); URINE NITRITE NEGATIVE (NEGATIVE); URINE PROTEIN NEGATIVE (NEGATIVE); URINE UROBILINOGEN 2.0 E.U/dl E.U./dl (0.2-1.0)
[2017-01-02 23:09] LABS: URINE MUCUS RARE; URINE RBC 8 /hpf (0-3); URINE WBC 2 /hpf (3-5); YEAST FEW
[2017-01-03] MEDS: SILVER SULFADIAZINE 1% TOP CREAM 50 GM JAR TP SCH ×3 (00:10→22:37)
[2017-01-03] MEDS: MAG HYDROX/ALH/SMC/DPHA/LIDO 240 ML MOUTHWASH MM SCH ×4 (00:11→18:17)
[2017-01-03] MEDS: methylPREDNISolone NA SUCC 40 MG/1 ML VIAL IVPB SCH ×4 (02:46→21:03)
[2017-01-03] MEDS: INSULIN SLIDING SCALE (NOVOLOG) 1 VIAL SQ SCH ×4 (06:14→22:36)
--- NOTE | 2017-01-03 08:15 | PN ---
Progress Note, Physician History of Present Illness: PATIENT IN ICU ON OXYGEN--STATES BETTER THAN YESTERDAY - Current Medication List Current Medications: Active Medications Acetaminophen (Tylenol -) 650 mg PO Q6H PRN PRN Reason: FEVER OR PAIN Last Admin: 12/23/16 21:31 Dose: 650 mg Amino Acids (Prosource No Carb Liquid Pkt) 30 ml PO BID@0800,1730 [facility] Last Admin: 01/02/17 18:21 Dose: 30 ml Ascorbic Acid (Vitamin C -) 250 mg PO BID [facility] Last Admin: 01/02/17 22:04 Dose: Not Given Aspirin (Ecotrin -) 81 mg PO DAILY [facility] Last Admin: 01/02/17 09:16 Dose: 81 mg Bacitracin (Bacitracin -) 1 applic TP DAILY [facility] Last Admin: 01/02/17 09:16 Dose: 1 applic Collagenase (Santyl -) 1 applic TP DAILY [facility] Last Admin: 01/02/17 09:16 Dose: 1 applic Furosemide (Lasix Injection -) 40 mg IVPB DAILY [facility] Last Admin: 01/02/17 09:16 Dose: 40 mg Guaifenesin (Robitussin Dm -) 10 ml PO Q6H PRN PRN Reason: COUGH Insulin Aspart (Novolog Vial Sliding Scale -) 1 vial SQ ACHS JONAS PRN Reason: Protocol Last Admin: 01/03/17 06:14 Dose: Not Given Insulin Detemir (Levemir Vial) 35 units SQ AM JONAS Last Admin: 01/02/17 08:02 Dose: 35 units Insulin Detemir (Levemir Vial) 15 units SQ HS [facility] Last Admin: 01/02/17 22:06 Dose: 15 units Lidocaine/Aluminum/Magnesium/Simeth (Magic Mouthwash *Sjr Formula* -) 5 ml MM Q6HPO [facility] Last Admin: 01/03/17 06:16 Dose: 5 ml Magnesium Hydroxide (Milk Of Magnesia -) 30 ml PO HS PRN PRN Reason: CONSTIPATION Last Admin: 12/19/16 22:08 Dose: 30 ml Methylprednisolone Sodium Succinate (Solu-Medrol -) 40 mg IVPB Q6H-IV [facility] Last Admin: 01/03/17 02:46 Dose: 40 mg Multivitamins/Minerals/Vitamin C (Tab-A-Vit -) 1 tab PO DAILY [facility] Last Admin: 01/02/17 09:16 Dose: 1 tab Pantoprazole Sodium (Protonix -) 40 mg PO DAILY [facility] Last Admin: 01/02/17 09:16 Dose: 40 mg Silver Sulfadiazine (Silvadene -) 1 applic TP BID [facility] Last Admin: 01/03/17 00:10 Dose: 1 applic Simethicone (Mylicon -) 80 mg PO Q4H PRN PRN Reason: GAS Last Admin: 01/01/17 21:44 Dose: 80 mg Tamsulosin HCl (Flomax -) 0.4 mg PO DAILY@0830 [facility] Last Admin: 01/02/17 08:02 Dose: 0.4 mg Zinc Sulfate (Orazinc -) 220 mg PO DAILY [facility] Last Admin: 01/02/17 09:16 Dose: 220 mg - Objective Vital Signs: Vital Signs Temperature 97.6 F 01/03/17 06:00 Pulse Rate 67 01/03/17 06:00 Respiratory Rate 20 01/03/17 06:00 Blood Pressure 157/68 01/03/17 06:00 O2 Sat by Pulse Oximetry (%) 99 01/02/17 22:00 Cardiovascular: Yes: S1, S2 Respiratory: Yes: Diminished, On Venti-Mask Gastrointestinal: Yes: Normal Bowel Sounds, Soft Labs: CBC, BMP 01/02/17 20:51 01/02/17 20:51 INR, PTT INR 1.19 (0.82-1.09) H 01/02/17 20:51 Problem List - Problems (1) Pneumonia Code(s): J18.9 - PNEUMONIA, UNSPECIFIED ORGANISM Qualifiers: Qualified Code(s): J18.9 - Pneumonia, unspecified organism (2) CKD (chronic kidney disease) Code(s): N18.9 - CHRONIC KIDNEY DISEASE, UNSPECIFIED Qualifiers: Qualified Code(s): N18.3 - Chronic kidney disease, stage 3 (moderate) (3) CAD (coronary artery disease) Code(s): I25.10 - ATHSCL HEART DISEASE OF [place] CORONARY ARTERY W/O ANG PCTRS (4) CHF (congestive heart failure) Code(s): I50.9 - HEART FAILURE, UNSPECIFIED Qualifiers: Qualified Code(s): I50.23 - Acute on chronic systolic (congestive) heart failure (5) Diabetes Code(s): E11.9 - TYPE 2 DIABETES MELLITUS WITHOUT COMPLICATIONS (6) PAD (peripheral artery disease) Code(s): I73.9 - PERIPHERAL VASCULAR DISEASE, UNSPECIFIED (7) SOB (shortness of breath) Code(s): R06.02 - SHORTNESS OF BREATH (8) Abnormal CT scan, chest Code(s): R93.8 - ABNORMAL FINDINGS ON DIAGNOSTIC IMAGING OF BODY STRUCTURES Assessment/Plan 1. RESPIRATORY FAILURE OXYGEN NEBS STEROIDS MONITOR RESPIRATORY STATUS IF DECLINING THEN VENT 2. CKD MONITOR RENAL FUNCTION 3. PLEURAL EFFUSION S/P TAP 4. PNEUMOTHORAX MONITOR
[2017-01-03] MEDS ORDERED: PT OWN MED DRAWER 7, Y5N ONE (08:49)
[2017-01-03] MEDS: TAMSULOSIN HCL 0.4 MG CAP.ER.24H (FP) PO SCH (08:50)
[2017-01-03] MEDS: AMINO ACIDS/PROTEIN HYDROLYS 30 ML LIQUID.PKT PO SCH ×3 (08:50→18:54)
[2017-01-03] MEDS: INSULIN DETEMIR 100 UNITS/ML MDV SQ SCH ×2 (09:08→22:35)
[2017-01-03] MEDS: ASPIRIN COATED 81 MG TABLET.EC PO SCH (09:09)
[2017-01-03] MEDS: ZINC SULFATE 220 MG CAPSULE (FP) PO SCH (09:09)
[2017-01-03] MEDS: FUROSEMIDE 40 MG/4 ML INJECTABLE VIAL IVPB SCH (09:09)
[2017-01-03] MEDS: BACITRACIN 15 GM TUBE TOPICAL OINTMENT TP SCH (09:09)
[2017-01-03] MEDS: MULTIVITAMINS (DAILY MVI) TABLET (FP) PO SCH (09:10)
[2017-01-03] MEDS: ASCORBIC ACID 250 MG TABLET (FP) PO SCH ×2 (09:10→23:00)
[2017-01-03] MEDS: PANTOPRAZOLE 40 MG TABLET (FP) PO SCH (09:10)
[2017-01-03] MEDS: COLLAGENASE CLOSTRIDIUM HIST. 30 GRAMS TUBE TP SCH (11:32)
[2017-01-03] MEDS: SIMETHICONE 80 MG TAB.CHEW (FP) PO PRN (12:09)
--- NOTE | 2017-01-03 12:27 | PN ---
Teaching Attending Note Name of Resident: Micaela Zaman ATTENDING PHYSICIAN STATEMENT I saw and evaluated the patient. I reviewed the resident's note and discussed the case with the resident. I agree with the resident's findings and plan as documented. SUBJECTIVE: Pt seen and examined in the ICU. Transferred down for pneumothorax and hypoxia, IR unable to place pigtail as pneumothorax appeared small on CXR. Currently with shortness of breath without chest pain. Saturating mid 90s on NRB. CXR this AM showing resolving pneumothorax. OBJECTIVE: Last Vital Signs Temp Pulse Resp BP Pulse Ox 96.8 F L 75 16 141/60 94 L 01/03/17 10:00 01/03/17 12:00 01/03/17 12:00 01/03/17 12:00 01/03/17 09:35 Intake & Output 12/31/16 01/01/17 01/02/17 01/03/17 23:59 23:59 23:59 23:59 Intake Total 460 490 550 Output Total 200 50 Balance 460 490 350 -50 Weight 139 lb 12.369 oz Gen: tachypneic at rest Heart: RRR Lung: scattered rales Abd: soft, nontender Ext: no edema CBC, BMP 01/02/17 20:51 01/02/17 20:51 Active Medications Acetaminophen (Tylenol -) 650 mg PO Q6H PRN PRN Reason: FEVER OR PAIN Last Admin: 12/23/16 21:31 Dose: 650 mg Amino Acids (Prosource No Carb Liquid Pkt) 30 ml PO BID@0800,1730 [facility] Last Admin: 01/03/17 08:50 Dose: 30 ml Ascorbic Acid (Vitamin C -) 250 mg PO BID [facility] Last Admin: 01/03/17 09:10 Dose: 250 mg Aspirin (Ecotrin -) 81 mg PO DAILY [facility] Last Admin: 01/03/17 09:09 Dose: 81 mg Bacitracin (Bacitracin -) 1 applic TP DAILY [facility] Last Admin: 01/03/17 09:09 Dose: 1 applic Collagenase (Santyl -) 1 applic TP DAILY [facility] Last Admin: 01/03/17 11:32 Dose: 1 applic Furosemide (Lasix Injection -) 40 mg IVPB DAILY [facility] Last Admin: 01/03/17 09:09 Dose: 40 mg Guaifenesin (Robitussin Dm -) 10 ml PO Q6H PRN PRN Reason: COUGH Insulin Aspart (Novolog Vial Sliding Scale -) 1 vial SQ ACHS JONAS PRN Reason: Protocol Last Admin: 01/03/17 11:34 Dose: 8 units Insulin Detemir (Levemir Vial) 35 units SQ AM [facility] Last Admin: 01/03/17 09:08 Dose: 35 units Insulin Detemir (Levemir Vial) 15 units SQ HS [facility] Last Admin: 01/02/17 22:06 Dose: 15 units Lidocaine/Aluminum/Magnesium/Simeth (Magic Mouthwash *Sjr Formula* -) 5 ml MM Q6HPO [facility] Last Admin: 01/03/17 12:05 Dose: 5 ml Magnesium Hydroxide (Milk Of Magnesia -) 30 ml PO HS PRN PRN Reason: CONSTIPATION Last Admin: 12/19/16 22:08 Dose: 30 ml Methylprednisolone Sodium Succinate (Solu-Medrol -) 40 mg IVPB Q6H-IV [facility] Last Admin: 01/03/17 09:09 Dose: 40 mg Multivitamins/Minerals/Vitamin C (Tab-A-Vit -) 1 tab PO DAILY [facility] Last Admin: 01/03/17 09:10 Dose: 1 tab Pantoprazole Sodium (Protonix -) 40 mg PO DAILY [facility] Last Admin: 01/03/17 09:10 Dose: 40 mg Silver Sulfadiazine (Silvadene -) 1 applic TP BID [facility] Last Admin: 01/03/17 11:33 Dose: 1 applic Simethicone (Mylicon -) 80 mg PO Q4H PRN PRN Reason: GAS Last Admin: 01/01/17 21:44 Dose: 80 mg Tamsulosin HCl (Flomax -) 0.4 mg PO DAILY@0830 [facility] Last Admin: 01/03/17 08:50 Dose: 0.4 mg Zinc Sulfate (Orazinc -) 220 mg PO DAILY [facility] Last Admin: 01/03/17 09:09 Dose: 220 mg ASSESSMENT AND PLAN: Acute Hypoxic Respiratory Failure Acute Pneumothorax Interstitial Lung Disease Pneumonia Acute on Chronic LV Systolic Heart Failure CAD PAD CKD DM - continue 100% NRB to aid in nitrogen washout - continue medrol at current dose - discontinued inhaled bronchodilators at pt's request - continue medrol at current dose - O2 to keep Spo2 >90% - BiPAP as needed - lasix - monitor urine output, creatinine - continue discussions regarding goals of care, advanced directives - poor prognosis - can monitor on telemetry critical care time spent in reviewing chart, evaluating patient and formulating plan 35 min
[2017-01-03] MEDS: MAGNESIUM HYDROX 2400MG/30ML ORAL SUSPENSION 30 ML CUP PO PRN (12:52)
[2017-01-03] MEDS ORDERED: SIMETHICONE 80 MG TAB.CHEW (FP) PO PRN (12:54)
[2017-01-03] MEDS ORDERED: ACETAMINOPHEN 325 MG TABLET (FP) PO PRN (12:54)
[2017-01-03] MEDS ORDERED: MAGNESIUM HYDROX 2400MG/30ML ORAL SUSPENSION 30 ML CUP PO PRN (12:54)
[2017-01-03] MEDS ORDERED: guaiFENesin/D-METHORPHAN HB 10 ML UNIT-DOSE CUPS PO PRN (12:54)
--- NOTE | 2017-01-03 14:00 | PN ---
Physical Exam: SUBJECTIVE: Patient seen and examined in ICU. He is complaining of SOB, using nen-rebreather mask, denies chest pain, palpitations, dizziness. OBJECTIVE: Vital Signs Period Temp Pulse Resp BP Sys/Blanca Pulse Ox Last 24 Hr 96.8 F-97.8 F 60-76 13-22 130-163/53-77 94-100 GENERAL: The patient is awake, alert, and fully oriented, in no mild distress, lying in bed with non-rebreather mask on face. HEAD: Normal with no signs of trauma. EYES: extraocular movements intact, sclera anicteric, conjunctiva clear. ENT: oropharynx clear without exudates, moist mucous membranes. NECK: Trachea midline, full range of motion, supple. LUNGS: Breath sounds equal, diminished bilaterally, no wheezes, no crackles, no accessory muscle use. HEART: Regular rate and rhythm, S1, S2 without murmur, rub or gallop. ABDOMEN: Soft, nontender, nondistended, normoactive bowel sounds, no guarding, no rebound, no hepatosplenomegaly, no masses. EXTREMITIES: no edema. NEUROLOGICAL: No facial asymmetry.Normal speech, gait not observed. PSYCH: Normal mood, normal affect. SKIN: Warm, dry, normal turgor, no rashes. Laboratory Results - last 24 hr 01/02/17 01/02/17 01/02/17 15:50 17:58 20:51 WBC 19.5 H RBC 4.02 Hgb 11.8 Hct 35.8 MCV 89.2 MCHC 33.0 RDW 14.2 Plt Count 249 MPV 8.5 Neutrophils % 94.1 H Lymphocytes % 2.4 L D Monocytes % 3.1 L Eosinophils % 0.0 Basophils % 0.4 INR PTT (Actin FS) Puncture Site ABG pH ABG pCO2 at Pt Temp ABG pO2 at Pt Temp ABG HCO3 ABG O2 Sat (Measured) ABG O2 Content ABG Base Excess Matthew Test O2 Delivery Device Oxygen Flow Rate PEEP Sodium Potassium Chloride Carbon Dioxide Anion Gap BUN Creatinine Creat Clearance w eGFR POC Glucometer [phone] Random Glucose Calcium Phosphorus Magnesium Total Bilirubin Direct Bilirubin AST ALT Alkaline Phosphatase Total Protein Albumin Urine Color Urine Appearance Urine pH Ur Specific [place] Urine Protein Urine Glucose (UA) Urine Ketones Urine Blood Urine Nitrite Urine Bilirubin Urine Urobilinogen Ur Leukocyte Esterase Urine RBC Urine WBC Ur Epithelial Cells Urine Mucus Urine Yeast Urine Creatinine 01/02/17 01/02/17 01/02/17 20:51 20:51 20:51 WBC RBC Hgb Hct MCV MCHC RDW Plt Count MPV Neutrophils % Lymphocytes % Monocytes % Eosinophils % Basophils % INR 1.19 H PTT (Actin FS) 25.1 L Puncture Site ABG pH ABG pCO2 at Pt Temp ABG pO2 at Pt Temp ABG HCO3 ABG O2 Sat (Measured) ABG O2 Content ABG Base Excess Matthew Test O2 Delivery Device Oxygen Flow Rate PEEP Sodium 137 Potassium 4.7 Chloride 96 L Carbon Dioxide 33 H Anion Gap 8 BUN 81 H 76 H Creatinine 1.4 H 1.4 H Creat Clearance w eGFR 48.52 POC Glucometer Random Glucose 196 H D 199 H Calcium 8.2 L Phosphorus 4.0 Magnesium 2.3 Total Bilirubin 0.6 0.6 Direct Bilirubin 0.3 H AST 25 25 ALT 30 30 Alkaline Phosphatase 178 H D 176 H Total Protein 5.9 L 5.8 L Albumin 2.4 L 2.4 L Urine Color Urine Appearance Urine pH Ur Specific [place] Urine Protein Urine Glucose (UA) Urine Ketones Urine Blood Urine Nitrite Urine Bilirubin Urine Urobilinogen Ur Leukocyte Esterase Urine RBC Urine WBC Ur Epithelial Cells Urine Mucus Urine Yeast Urine Creatinine 01/02/17 01/02/17 01/02/17 21:24 22:00 22:00 WBC RBC Hgb Hct MCV MCHC RDW Plt Count MPV Neutrophils % Lymphocytes % Monocytes % Eosinophils % Basophils % INR PTT (Actin FS) Puncture Site ABG pH ABG pCO2 at Pt Temp ABG pO2 at Pt Temp ABG HCO3 ABG O2 Sat (Measured) ABG O2 Content ABG Base Excess Matthew Test O2 Delivery Device Oxygen Flow Rate PEEP Sodium Potassium Chloride Carbon Dioxide Anion Gap BUN Creatinine Creat Clearance w eGFR POC Glucometer 176.85554 Random Glucose Calcium Phosphorus Magnesium Total Bilirubin Direct Bilirubin AST ALT Alkaline Phosphatase Total Protein Albumin Urine Color Ltyellow Urine Appearance Clear Urine pH 6.0 Ur Specific [place] 1.010 Urine Protein Negative Urine Glucose (UA) 1+ H Urine Ketones Negative Urine Blood Negative Urine Nitrite Negative Urine Bilirubin Negative Urine Urobilinogen 2.0 e.u/dl Ur Leukocyte Esterase 1+ H Urine RBC 8 Urine WBC 2 Ur Epithelial Cells Rare Urine Mucus Rare Urine Yeast Few Urine Creatinine 30.6 01/02/17 01/03/1701/03/17 22:16 06:12 11:32 WBC RBC Hgb Hct MCV MCHC RDW Plt Count MPV Neutrophils % Lymphocytes % Monocytes % Eosinophils % Basophils % INR PTT (Actin FS) Puncture Site Right brachial ABG pH 7.49 H ABG pCO2 at Pt Temp 43.1 ABG pO2 at Pt Temp 89.3 D ABG HCO3 32.3 H ABG O2 Sat (Measured) 94.6 ABG O2 Content 19.7 ABG Base Excess 8.1 H Amtthew Test Not applicable O2 Delivery Device Non rebreather Oxygen Flow Rate 100 PEEP 0.0 Sodium Potassium Chloride Carbon Dioxide Anion Gap BUN Creatinine Creat Clearance w eGFR POC Glucometer 93.09862 333.21953 Random Glucose Calcium Phosphorus Magnesium Total Bilirubin Direct Bilirubin AST ALT Alkaline Phosphatase Total Protein Albumin Urine Color Urine Appearance Urine pH Ur Specific [place] Urine Protein Urine Glucose (UA) Urine Ketones Urine Blood Urine Nitrite Urine Bilirubin Urine Urobilinogen Ur Leukocyte Esterase Urine RBC Urine WBC Ur Epithelial Cells Urine Mucus Urine Yeast Urine Creatinine Active Medications Generic Name Dose Route Start Last Admin Trade Name Freq PRN Reason Stop Dose Admin Acetaminophen 650 mg 01/03/17 12:54 Tylenol - PO Q6H PRN FEVER OR PAIN Amino Acids 30 ml 01/03/17 17:30 Prosource No Carb Liquid Pkt PO BID@0800,1730 [facility] Ascorbic Acid 250 mg 01/03/17 22:00 Vitamin C - PO BID [facility] Aspirin 81 mg 01/04/17 10:00 Ecotrin - PO DAILY [facility] Bacitracin 1 applic 01/04/17 10:00 Bacitracin - TP DAILY [facility] Collagenase 1 applic 01/04/17 10:00 Santyl - TP DAILY [facility] Furosemide 40 mg 01/04/17 10:00 Lasix Injection - IVPB DAILY [facility] Guaifenesin 10 ml 01/03/17 12:54 Robitussin Dm - PO Q6H PRN COUGH Insulin Aspart 1 vial 01/03/17 16:30 Novolog Vial Sliding Scale - SQ ACHS JONAS Protocol Insulin Detemir 35 units 01/04/17 07:00 Levemir Vial SQ AM JONAS Insulin Detemir 15 units 01/03/17 22:00 Levemir Vial SQ HS JONAS Lidocaine/Aluminum/Magnesium/Simeth 5 ml 01/03/17 18:00 Magic Mouthwash *Sjr Formula* - MM Q6HPO JONAS Magnesium Hydroxide 30 ml 01/03/17 12:54 Milk Of Magnesia - PO HS PRN CONSTIPATION Methylprednisolone Sodium Succinate 40 mg 01/03/17 15:00 Solu-Medrol - IVPB Q6H-IV JONAS Multivitamins/Minerals/Vitamin C 1 tab 01/04/17 10:00 Tab-A-Vit - PO DAILY JONAS Pantoprazole Sodium 40 mg 01/04/17 10:00 Protonix - PO DAILY JONAS Silver Sulfadiazine 1 applic 01/03/17 22:00 Silvadene - TP BID JONAS Simethicone 80 mg 01/03/17 12:54 Mylicon - PO Q4H PRN GAS Tamsulosin HCl 0.4 mg 01/04/17 08:30 Flomax - PO DAILY@0830 JONAS Zinc Sulfate 220 mg 01/04/17 10:00 Orazinc - PO DAILY [facility] ASSESSMENT/PLAN: This is an 81 year old with respiratory insufficiency secondary to underlying lung disease ?ILD, CHF and volume overload, presents with respiratory worsening secondary to new L apical pneumothorax. hypoxic respiratory failure -due to underlying chronic lung disease, new L apical pneumothorax/CHF -100% non-rebreather -cont Bronchodilators and continue Solumedrol -IR attempted to put chest tube yesterday but unsuccessfully -CXR repeated today, no visible pneumothorax -Monitor for need for intubation -no signs of infection, no leukocytosis, fever CHF/CAD s/p CABG -Lasix 40 qd -Monitor I&O -cont. Aspirin DM type 2; -ISS -BGM -Levemir 35 u HS BPH: cont.Flomax Gi PPX: Pantoprazole DVT PPX: -scd Disposition; transfer to telemetry Visit type - Emergency Visit Emergency Visit: Yes ED Registration Date: 12/16/16 Care time: The patient presented to the Emergency Department on the above date and was hospitalized for further evaluation of their emergent condition. - New Patient This patient is new to me today: No - Critical Care Critical Care patient: Yes Total Critical Care Time (in minutes): 45 Critical Care Statement: The care of this patient involved high complexity decision making to prevent further life threatening deterioration of the patient 's condition and/or to evalute & treat vital organ system(s) failure or risk of failure.
--- NOTE | 2017-01-03 18:13 | PN ---
Progress Note, Physician History of Present Illness: Pt seen and examined at bedside. He is now in the ICU. He was transferred to ICU for a pneumothorax that is almost resolved. He is awake. - Current Medication List Current Medications: Active Medications Acetaminophen (Tylenol -) 650 mg PO Q6H PRN PRN Reason: FEVER OR PAIN Amino Acids (Prosource No Carb Liquid Pkt) 30 ml PO BID@0800,1730 JONAS Ascorbic Acid (Vitamin C -) 250 mg PO BID JONAS Aspirin (Ecotrin -) 81 mg PO DAILY JONAS Bacitracin (Bacitracin -) 1 applic TP DAILY JONAS Collagenase (Santyl -) 1 applic TP DAILY JONAS Furosemide (Lasix Injection -) 40 mg IVPB DAILY JON[facility] Guaifenesin (Robitussin Dm -) 10 ml PO Q6H PRN PRN Reason: COUGH Insulin Aspart (Novolog Vial Sliding Scale -) 1 vial SQ ACHS JONAS PRN Reason: Protocol Last Admin: 01/03/17 17:11 Dose: 6 units Insulin Detemir (Levemir Vial) 35 units SQ AM JONAS Insulin Detemir (Levemir Vial) 15 units SQ HS JONAS Lidocaine/Aluminum/Magnesium/Simeth (Magic Mouthwash *Sjr Formula* -) 5 ml MM Q6HPO JOANS Magnesium Hydroxide (Milk Of Magnesia -) 30 ml PO HS PRN PRN Reason: CONSTIPATION Methylprednisolone Sodium Succinate (Solu-Medrol -) 40 mg IVPB Q6H-IV JONAS Last Admin: 01/03/17 17:13 Dose: 40 mg Multivitamins/Minerals/Vitamin C (Tab-A-Vit -) 1 tab PO DAILY JONAS Pantoprazole Sodium (Protonix -) 40 mg PO DAILY JONAS Silver Sulfadiazine (Silvadene -) 1 applic TP BID JONAS Simethicone (Mylicon -) 80 mg PO Q4H PRN PRN Reason: GAS Tamsulosin HCl (Flomax -) 0.4 mg PO DAILY@0830 JONAS Zinc Sulfate (Orazinc -) 220 mg PO DAILY JONAS - Objective Vital Signs: Vital Signs Temperature 97.2 F L 01/03/17 14:00 Pulse Rate 84 01/03/17 16:00 Respiratory Rate 17 01/03/17 16:00 Blood Pressure 137/56 01/03/17 16:00 O2 Sat by Pulse Oximetry (%) 97 01/03/17 17:12 Constitutional: Yes: Calm Eyes: Yes: Conjunctiva Clear HENT: Yes: Atraumatic Neck: Yes: Supple Cardiovascular: Yes: S1, S2 Respiratory: Yes: On Venti-Mask, Wheezes Gastrointestinal: Yes: Soft Genitourinary: Yes: Other (external catheter) Musculoskeletal: Yes: Muscle Weakness Edema: No Neurological: Yes: Oriented Psychiatric: Yes: Oriented Labs: CBC, BMP 01/02/17 20:51 01/02/17 20:51 INR, PTT INR 1.19 (0.82-1.09) H 01/02/17 20:51 Problem List - Problems (1) Pneumonia Code(s): J18.9 - PNEUMONIA, UNSPECIFIED ORGANISM Qualifiers: Qualified Code(s): J18.9 - Pneumonia, unspecified organism (2) Respiratory distress Code(s): R06.00 - DYSPNEA, UNSPECIFIED (3) BPH (benign prostatic hyperplasia) Code(s): N40.0 - BENIGN PROSTATIC HYPERPLASIA WITHOUT LOWER URINRY TRACT SYMP (4) CAD (coronary artery disease) Code(s): I25.10 - ATHSCL HEART DISEASE OF [place] CORONARY ARTERY W/O ANG PCTRS (5) CHF (congestive heart failure) Code(s): I50.9 - HEART FAILURE, UNSPECIFIED Qualifiers: Qualified Code(s): I50.23 - Acute on chronic systolic (congestive) heart failure (6) Diabetes Code(s): E11.9 - TYPE 2 DIABETES MELLITUS WITHOUT COMPLICATIONS (7) CKD (chronic kidney disease) Code(s): N18.9 - CHRONIC KIDNEY DISEASE, UNSPECIFIED Qualifiers: Qualified Code(s): N18.3 - Chronic kidney disease, stage 3 (moderate) Assessment/Plan Current Medications Generic Name Dose Route Start Last Admin Trade Name Freq PRN Reason Stop Dose Admin Acetaminophen 650 mg 01/03/17 12:54 Tylenol - PO Q6H PRN FEVER OR PAIN Amino Acids 30 ml 01/03/17 17:30 Prosource No Carb Liquid Pkt PO BID@0800,1730 JONAS Ascorbic Acid 250 mg 01/03/17 22:00 Vitamin C - PO BID JONAS Aspirin 81 mg 01/04/17 10:00 Ecotrin - PO DAILY JONAS Bacitracin 1 applic 01/04/17 10:00 Bacitracin - TP DAILY JONAS Collagenase 1 applic 01/04/17 10:00 Santyl - TP DAILY JONAS Furosemide 40 mg 01/04/17 10:00 Lasix Injection - IVPB DAILY JONAS Guaifenesin 10 ml 01/03/17 12:54 Robitussin Dm - PO Q6H PRN COUGH Insulin Aspart 1 vial 01/03/17 16:30 01/03/17 17:11 Novolog Vial Sliding Scale - SQ 6 units ACHS JONAS Administration Protocol Insulin Detemir 35 units 01/04/17 07:00 Levemir Vial SQ AM JONAS Insulin Detemir 15 units 01/03/17 22:00 Levemir Vial SQ HS JONAS Lidocaine/Aluminum/Magnesium/Simeth 5 ml 01/03/17 18:00 Magic Mouthwash *Sjr Formula* - MM Q6HPO JONAS Magnesium Hydroxide 30 ml 01/03/17 12:54 Milk Of Magnesia - PO HS PRN CONSTIPATION Methylprednisolone Sodium Succinate 40 mg 01/03/17 15:00 01/03/17 17:13 Solu-Medrol - IVPB 40 mg Q6H-IV JONAS Administration Multivitamins/Minerals/Vitamin C 1 tab 01/04/17 10:00 Tab-A-Vit - PO DAILY JONAS Pantoprazole Sodium 40 mg 01/04/17 10:00 Protonix - PO DAILY JONAS Silver Sulfadiazine 1 applic 01/03/17 22:00 Silvadene - TP BID JONAS Simethicone 80 mg 01/03/17 12:54 Mylicon - PO Q4H PRN GAS Tamsulosin HCl 0.4 mg 01/04/17 08:30 Flomax - PO DAILY@0830 JONAS Zinc Sulfate 220 mg 01/04/17 10:00 Orazinc - PO DAILY JONAS Impression 1. CKD 2. hx CVA 3. CAD 4. DM 5. BPH 6. chol 7. PVD 8. s/p angio of the right leg with stenting 9. PNA 10. dyspnea 11. lactic acidosis 12. respiratory failure Plan - renal function is stable - monitor bmp - monitor cxr - pt has poor PO intake, can add glucerna - discussed case with his - will follow pt PRN Dr Wilson
[2017-01-04] MEDS: methylPREDNISolone NA SUCC 40 MG/1 ML VIAL IVPB SCH ×3 (02:28→17:08)
[2017-01-04 06:25] LABS: MCH 29.5 pg (25.7-33.7); MEAN CELL VOLUME 89.3 fl (80-96); PLATELET COUNT 236 K/MM3 (134-434); RDW 14.3 % (11.9-15.9)
[2017-01-04] MEDS: MAG HYDROX/ALH/SMC/DPHA/LIDO 240 ML MOUTHWASH MM SCH ×4 (06:25→17:08)
[2017-01-04] MEDS: INSULIN SLIDING SCALE (NOVOLOG) 1 VIAL SQ SCH ×4 (06:26→22:23)
[2017-01-04 07:03] LABS: ALBUMIN 2.2 g/dl (3.4-5.0); ANION GAP 11 (8-16); CALCIUM 8.1 mg/dL (8.5-10.1); CO2 33 mmol/L (21-32); GLUCOSE,RANDOM 61 mg/dL (74-106); SGPT/ALT 29 U/L (12-78)
[2017-01-04 07:06] LABS: ALK PHOS 156 U/L (45-117); BILIRUBIN,TOTAL 0.7 mg/dL (0.2-1.0); COCKROFT - GAULT 47.02; CREATININE 1.1 mg/dL (0.7-1.3); SGOT/AST 27 U/L (15-37); TOT PROT 5.5 g/dl (6.4-8.2)
--- NOTE | 2017-01-04 07:55 | PN ---
Progress Note, Physician History of Present Illness: PATIENT IN ICU ON OXYGEN--STATES BETTER THAN YESTERDAY - Current Medication List Current Medications: Active Medications Acetaminophen (Tylenol -) 650 mg PO Q6H PRN PRN Reason: FEVER OR PAIN Amino Acids (Prosource No Carb Liquid Pkt) 30 ml PO BID@0800,1730 [facility] Last Admin: 01/03/17 18:54 Dose: 30 ml Ascorbic Acid (Vitamin C -) 250 mg PO BID [facility] Last Admin: 01/03/17 23:00 Dose: Not Given Aspirin (Ecotrin -) 81 mg PO DAILY [facility] Bacitracin (Bacitracin -) 1 applic TP DAILY [facility] Collagenase (Santyl -) 1 applic TP DAILY [facility] Furosemide (Lasix Injection -) 40 mg IVPB DAILY [facility] Guaifenesin (Robitussin Dm -) 10 ml PO Q6H PRN PRN Reason: COUGH Insulin Aspart (Novolog Vial Sliding Scale -) 1 vial SQ ACHS [facility] PRN Reason: Protocol Last Admin: 01/04/17 06:26 Dose: Not Given Insulin Detemir (Levemir Vial) 35 units SQ AM [facility] Insulin Detemir (Levemir Vial) 15 units SQ HS [facility] Last Admin: 01/03/17 22:35 Dose: 15 units Lidocaine/Aluminum/Magnesium/Simeth (Magic Mouthwash *Sjr Formula* -) 5 ml MM Q6HPO [facility] Last Admin: 01/04/17 06:25 Dose: 5 ml Magnesium Hydroxide (Milk Of Magnesia -) 30 ml PO HS PRN PRN Reason: CONSTIPATION Methylprednisolone Sodium Succinate (Solu-Medrol -) 40 mg IVPB Q6H-IV [facility] Last Admin: 01/04/17 02:28 Dose: 40 mg Multivitamins/Minerals/Vitamin C (Tab-A-Vit -) 1 tab PO DAILY [facility] Pantoprazole Sodium (Protonix -) 40 mg PO DAILY [facility] Silver Sulfadiazine (Silvadene -) 1 applic TP BID [facility] Last Admin: 01/03/17 22:37 Dose: 1 applic Simethicone (Mylicon -) 80 mg PO Q4H PRN PRN Reason: GAS Tamsulosin HCl (Flomax -) 0.4 mg PO DAILY@0830 [facility] Zinc Sulfate (Orazinc -) 220 mg PO DAILY [facility] - Objective Vital Signs: Vital Signs Temperature 96.4 F L 01/04/17 06:00 Pulse Rate 76 01/04/17 06:00 Respiratory Rate 18 01/04/17 06:00 Blood Pressure 133/60 01/04/17 06:00 O2 Sat by Pulse Oximetry (%) 99 01/04/17 07:48 Respiratory: Yes: Rhonchi, Other (ON NRB) Gastrointestinal: Yes: Normal Bowel Sounds, Soft Edema: No Labs: CBC, BMP 01/04/17 05:15 01/04/17 05:15 INR, PTT INR 1.19 (0.82-1.09) H 01/02/17 20:51 Problem List - Problems (1) Pneumonia Code(s): J18.9 - PNEUMONIA, UNSPECIFIED ORGANISM Qualifiers: Qualified Code(s): J18.9 - Pneumonia, unspecified organism (2) CKD (chronic kidney disease) Code(s): N18.9 - CHRONIC KIDNEY DISEASE, UNSPECIFIED Qualifiers: Qualified Code(s): N18.3 - Chronic kidney disease, stage 3 (moderate) (3) CAD (coronary artery disease) Code(s): I25.10 - ATHSCL HEART DISEASE OF [place] CORONARY ARTERY W/O ANG PCTRS (4) CHF (congestive heart failure) Code(s): I50.9 - HEART FAILURE, UNSPECIFIED Qualifiers: Qualified Code(s): I50.23 - Acute on chronic systolic (congestive) heart failure (5) Diabetes Code(s): E11.9 - TYPE 2 DIABETES MELLITUS WITHOUT COMPLICATIONS (6) PAD (peripheral artery disease) Code(s): I73.9 - PERIPHERAL VASCULAR DISEASE, UNSPECIFIED (7) SOB (shortness of breath) Code(s): R06.02 - SHORTNESS OF BREATH (8) Abnormal CT scan, chest Code(s): R93.8 - ABNORMAL FINDINGS ON DIAGNOSTIC IMAGING OF BODY STRUCTURES Assessment/Plan 1. RESPIRATORY FAILURE OXYGEN NEBS STEROIDS MONITOR RESPIRATORY STATUS IF DECLINING THEN VENT 2. CKD MONITOR RENAL FUNCTION 3. PLEURAL EFFUSION S/P TAP 4. PNEUMOTHORAX MONITOR RESOLVING
[2017-01-04] MEDS: INSULIN DETEMIR 100 UNITS/ML MDV SQ SCH ×2 (08:27→22:23)
[2017-01-04] MEDS: TAMSULOSIN HCL 0.4 MG CAP.ER.24H (FP) PO SCH ×2 (08:29→09:48)
[2017-01-04] MEDS: AMINO ACIDS/PROTEIN HYDROLYS 30 ML LIQUID.PKT PO SCH ×2 (08:29→17:08)
[2017-01-04] MEDS ORDERED: PT OWN MED DRAWER 7, Y5N ONE ×3 (09:30→21:50)
[2017-01-04] MEDS: ASPIRIN COATED 81 MG TABLET.EC PO SCH (09:31)
[2017-01-04] MEDS: FUROSEMIDE 40 MG/4 ML INJECTABLE VIAL IVPB SCH (09:31)
[2017-01-04] MEDS: ZINC SULFATE 220 MG CAPSULE (FP) PO SCH (09:31)
[2017-01-04] MEDS: ASCORBIC ACID 250 MG TABLET (FP) PO SCH ×2 (09:32→22:26)
[2017-01-04] MEDS: MULTIVITAMINS (DAILY MVI) TABLET (FP) PO SCH (09:32)
[2017-01-04] MEDS: PANTOPRAZOLE 40 MG TABLET (FP) PO SCH (09:32)
[2017-01-04 10:03] LABS: PLATELET ESTIMATE ADEQUATE (NORMAL)
[2017-01-04] MEDS: COLLAGENASE CLOSTRIDIUM HIST. 30 GRAMS TUBE TP SCH (10:13)
[2017-01-04] MEDS: SILVER SULFADIAZINE 1% TOP CREAM 50 GM JAR TP SCH (10:14)
[2017-01-04] MEDS: BACITRACIN 15 GM TUBE TOPICAL OINTMENT TP SCH (10:15)
--- NOTE | 2017-01-04 10:45 | PN ---
Physical Exam: SUBJECTIVE: Patient seen and examined in ICU. He is still complaining of SOB and chest tightness, on 100% non rebreather mask. no overnight events. OBJECTIVE: Vital Signs Period Temp Pulse Resp BP Sys/Blanca Pulse Ox Last 24 Hr 96.4 F-98 F 70-85 16-24 118-148/56-72 90-100 GENERAL: The patient is awake, alert, and fully oriented, in no mild distress, lying in bed with non-rebreather mask on face. HEAD: Normal with no signs of trauma. EYES: extraocular movements intact, sclera anicteric, conjunctiva clear. ENT: oropharynx clear without exudates, moist mucous membranes. NECK: Trachea midline, full range of motion, supple. LUNGS: Breath sounds equal, diminished bilaterally, no wheezes, no crackles, no accessory muscle use. HEART: Regular rate and rhythm, S1, S2 without murmur, rub or gallop. ABDOMEN: Soft, nontender, nondistended, normoactive bowel sounds, no guarding, no rebound, no hepatosplenomegaly, no masses. EXTREMITIES: no edema. NEUROLOGICAL: No facial asymmetry. Normal speech, gait not observed. PSYCH: Normal mood, normal affect. SKIN: Warm, dry, normal turgor, no rashes. Laboratory Results - last 24 hr 01/03/17 01/03/17 01/03/17 11:32 17:09 22:32 WBC RBC Hgb Hct MCV MCHC RDW Plt Count MPV Neutrophils % Lymphocytes % Differential Comment Platelet Estimate Sodium Potassium Chloride Carbon Dioxide Anion Gap BUN Creatinine Creat Clearance w eGFR POC Glucometer [phone] Random Glucose Calcium Total Bilirubin AST ALT Alkaline Phosphatase Total Protein Albumin 01/04/17 01/04/17 01/04/17 05:15 05:15 06:54 WBC 23.0 H RBC 4.22 Hgb 12.4 Hct 37.7 MCV 89.3 MCHC 33.0 RDW 14.3 Plt Count 236 MPV 9.0 Neutrophils % 98.0 H Lymphocytes % 2.0 L Differential Comment Manual diff done Platelet Estimate Adequate Sodium 141 Potassium 4.4 Chloride 97 L Carbon Dioxide 33 H Anion Gap 11 BUN 72 H Creatinine 1.1 D Creat Clearance w eGFR > 60 POC Glucometer [phone] Random Glucose 61 L D Calcium 8.1 L Total Bilirubin 0.7 AST 27 ALT 29 Alkaline Phosphatase 156 H Total Protein 5.5 L Albumin 2.2 L Active Medications Generic Name Dose Route Start Last Admin Trade Name Ha PRN Reason Stop Dose Admin Acetaminophen 650 mg 01/03/17 12:54 Tylenol - PO Q6H PRN FEVER OR PAIN Amino Acids 30 ml 01/03/17 17:30 01/04/17 08:29 Prosource No Carb Liquid Pkt PO 30 ml BID@0800,1730 [facility] Administration Ascorbic Acid 250 mg 01/03/17 22:00 01/04/17 09:32 Vitamin C - PO 250 mg BID [facility] Administration Aspirin 81 mg 01/04/17 10:00 01/04/17 09:31 Ecotrin - PO 81 mg DAILY [facility] Administration Bacitracin 1 applic 01/04/17 10:00 01/04/17 10:15 Bacitracin - TP Not Given DAILY [facility] Collagenase 1 applic 01/04/17 10:00 01/04/17 10:13 Santyl - TP 1 applic DAILY [facility] Administration Furosemide 40 mg 01/04/17 10:00 01/04/17 09:31 Lasix Injection - IVPB 40 mg DAILY [facility] Administration Guaifenesin 10 ml 01/03/17 12:54 Robitussin Dm - PO Q6H PRN COUGH Insulin Aspart 1 vial 01/03/17 16:30 01/04/17 06:26 Novolog Vial Sliding Scale - SQ Not Given ACHS [facility] Protocol Insulin Detemir 35 units 01/04/17 07:00 01/04/17 08:27 Levemir Vial SQ Not Given AM [facility] Insulin Detemir 15 units 01/03/17 22:00 01/03/17 22:35 Levemir Vial SQ 15 units HS [facility] Administration Lidocaine/Aluminum/Magnesium/Simeth 5 ml 01/03/17 18:00 01/04/17 06:25 Magic Mouthwash *Sjr Formula* - MM 5 ml Q6HPO [facility] Administration Magnesium Hydroxide 30 ml 01/03/17 12:54 Milk Of Magnesia - PO HS PRN CONSTIPATION Methylprednisolone Sodium Succinate 40 mg 01/04/17 18:00 Solu-Medrol - IVPB Q8H-IV [facility] Multivitamins/Minerals/Vitamin C 1 tab 01/04/17 10:00 01/04/17 09:32 Tab-A-Vit - PO 1 tab DAILY [facility] Administration Pantoprazole Sodium 40 mg 01/04/17 10:00 01/04/17 09:32 Protonix - PO 40 mg DAILY [facility] Administration Silver Sulfadiazine 1 applic 01/03/17 22:00 01/04/17 10:14 Silvadene - TP 1 applic BID [facility] Administration Simethicone 80 mg 01/03/17 12:54 Mylicon - PO Q4H PRN GAS Tamsulosin HCl 0.4 mg 01/04/17 08:30 01/04/17 09:48 Flomax - PO Not Given DAILY@0830 [facility] Zinc Sulfate 220 mg 01/04/17 10:00 01/04/17 09:31 Orazinc - PO 220 mg DAILY [facility] Administration ASSESSMENT/PLAN: This is an 81 year old with respiratory insufficiency secondary to underlying lung disease ?ILD, CHF, CKD, presents with respiratory worsening secondary to new L apical pneumothorax. hypoxic respiratory failure -due to underlying chronic lung disease, new L apical pneumothorax/CHF -100% non-rebreather -cont Bronchodilators and continue Solumedrol, will decrease to 40 mg Q8h -IR attempted to put chest tube but unsuccessfully -CXR repeated, pneumothorax improved -no signs of infection, no fever, Zosyn finished 7 day course CHF/CAD s/p CABG -Lasix 40 qd -Monitor I&O -cont. Aspirin DM type 2 -ISS -BGM -Levemir 35 u HS CKD -renal function is stable - monitor bmp BPH: cont.Flomax Gi PPX: Pantoprazole DVT PPX: -scd Disposition; transfer to telemetry Visit type - Emergency Visit Emergency Visit: Yes ED Registration Date: 12/16/16 Care time: The patient presented to the Emergency Department on the above date and was hospitalized for further evaluation of their emergent condition. - New Patient This patient is new to me today: No - Critical Care Critical Care patient: Yes Total Critical Care Time (in minutes): 30 Critical Care Statement: The care of this patient involved high complexity decision making to prevent further life threatening deterioration of the patient 's condition and/or to evalute & treat vital organ system(s) failure or risk of failure.
--- NOTE | 2017-01-04 11:12 | PN ---
Teaching Attending Note Name of Resident: Micaela Zaman ATTENDING PHYSICIAN STATEMENT I saw and evaluated the patient. I reviewed the resident's note and discussed the case with the resident. I agree with the resident's findings and plan as documented. SUBJECTIVE: Pt seen and examined in the ICU. Breathing about the same, still desaturates with minimal exertion or off NRB. Denies chest pain. OBJECTIVE: Last Vital Signs Temp Pulse Resp BP Pulse Ox 96.4 F L 85 27 H 127/63 90 L 01/04/17 10:00 01/04/17 10:04 01/04/17 10:00 01/04/17 10:00 01/04/17 10:04 Intake & Output 01/01/17 01/02/17 01/03/17 01/04/17 23:59 23:59 23:59 23:59 Intake Total 490 550 830 150 Output Total 200 1600 500 Balance 490 350 -770 -350 Weight 139 lb 12.369 oz 141 lb 9 oz Gen: tachypneic at rest Heart: RRR Lung: scattered rales Abd: soft, nontender Ext: no edema CBC, BMP 01/04/17 05:15 01/04/17 05:15 Active Medications Acetaminophen (Tylenol -) 650 mg PO Q6H PRN PRN Reason: FEVER OR PAIN Amino Acids (Prosource No Carb Liquid Pkt) 30 ml PO BID@0800,1730 [facility] Last Admin: 01/04/17 08:29 Dose: 30 ml Ascorbic Acid (Vitamin C -) 250 mg PO BID [facility] Last Admin: 01/04/17 09:32 Dose: 250 mg Aspirin (Ecotrin -) 81 mg PO DAILY [facility] Last Admin: 01/04/17 09:31 Dose: 81 mg Bacitracin (Bacitracin -) 1 applic TP DAILY [facility] Last Admin: 01/04/17 10:15 Dose: Not Given Collagenase (Santyl -) 1 applic TP DAILY [facility] Last Admin: 01/04/17 10:13 Dose: 1 applic Furosemide (Lasix Injection -) 40 mg IVPB DAILY [facility] Last Admin: 01/04/17 09:31 Dose: 40 mg Guaifenesin (Robitussin Dm -) 10 ml PO Q6H PRN PRN Reason: COUGH Insulin Aspart (Novolog Vial Sliding Scale -) 1 vial SQ ACHS [facility] PRN Reason: Protocol Last Admin: 01/04/17 11:03 Dose: 6 units Insulin Detemir (Levemir Vial) 35 units SQ AM [facility] Last Admin: 01/04/17 08:27 Dose: Not Given Insulin Detemir (Levemir Vial) 15 units SQ HS [facility] Last Admin: 01/03/17 22:35 Dose: 15 units Lidocaine/Aluminum/Magnesium/Simeth (Magic Mouthwash *Sjr Formula* -) 5 ml MM Q6HPO [facility] Last Admin: 01/04/17 11:04 Dose: 5 ml Magnesium Hydroxide (Milk Of Magnesia -) 30 ml PO HS PRN PRN Reason: CONSTIPATION Methylprednisolone Sodium Succinate (Solu-Medrol -) 40 mg IVPB Q8H-IV [facility] Multivitamins/Minerals/Vitamin C (Tab-A-Vit -) 1 tab PO DAILY [facility] Last Admin: 01/04/17 09:32 Dose: 1 tab Pantoprazole Sodium (Protonix -) 40 mg PO DAILY [facility] Last Admin: 01/04/17 09:32 Dose: 40 mg Silver Sulfadiazine (Silvadene -) 1 applic TP BID [facility] Last Admin: 01/04/17 10:14 Dose: 1 applic Simethicone (Mylicon -) 80 mg PO Q4H PRN PRN Reason: GAS Tamsulosin HCl (Flomax -) 0.4 mg PO DAILY@0830 [facility] Last Admin: 01/04/17 09:48 Dose: Not Given Zinc Sulfate (Orazinc -) 220 mg PO DAILY [facility] Last Admin: 01/04/17 09:31 Dose: 220 mg ASSESSMENT AND PLAN: Acute Hypoxic Respiratory Failure Acute Pneumothorax/Pneumomediastinum Interstitial Lung Disease Pneumonia Acute on Chronic LV Systolic Heart Failure CAD PAD CKD DM - continue 100% NRB to aid in nitrogen washout - can decrease medrol to q8h dosing - discontinued inhaled bronchodilators at pt's request - O2 to keep Spo2 >90% - BiPAP as needed but would minimize use due to pneumothorax/pneumomediastinum - lasix - monitor urine output, creatinine - continue discussions regarding goals of care, advanced directives - poor overall prognosis - can monitor on telemetry critical care time spent in reviewing chart, evaluating patient and formulating plan 35 min
--- NOTE | 2017-01-04 12:09 | PN ---
Progress Note, REIMBURSEMENT DIRECTOR - Note Progress Note: Medical events reviewed/noted since last seen. Now pt requires nonrebreather, with desaturation to 80's almost immediately when non rebreather removed. Pt reports hang up of puree in esophagus and intermittent cough on thin liquid from a straw, which is what he uses. Pt is not medically stable for MBS. REC: [place] thick liquid, straw trial ok. Extra gravy on puree. Alternate puree with sip of liquid Small meals throughout the day. Do not feed when SOB. Uopright for an hour after meals.
[2017-01-05] MEDS: methylPREDNISolone NA SUCC 40 MG/1 ML VIAL IVPB SCH ×3 (01:46→17:17)
[2017-01-05] MEDS: INSULIN SLIDING SCALE (NOVOLOG) 1 VIAL SQ SCH ×4 (06:00→23:38)
[2017-01-05] MEDS: MAG HYDROX/ALH/SMC/DPHA/LIDO 240 ML MOUTHWASH MM SCH ×5 (06:36→23:46)
[2017-01-05] MEDS: INSULIN DETEMIR 100 UNITS/ML MDV SQ SCH ×2 (07:14→22:27)
--- NOTE | 2017-01-05 07:57 | PN ---
Progress Note, Physician History of Present Illness: PATIENT IN ICU ON OXYGEN--STATES BETTER THAN YESTERDAY - Current Medication List Current Medications: Active Medications Acetaminophen (Tylenol -) 650 mg PO Q6H PRN PRN Reason: FEVER OR PAIN Amino Acids (Prosource No Carb Liquid Pkt) 30 ml PO BID@0800,1730 [facility] Last Admin: 01/04/17 17:08 Dose: 30 ml Ascorbic Acid (Vitamin C -) 250 mg PO BID [facility] Last Admin: 01/04/17 22:26 Dose: 250 mg Aspirin (Ecotrin -) 81 mg PO DAILY [facility] Last Admin: 01/04/17 09:31 Dose: 81 mg Bacitracin (Bacitracin -) 1 applic TP DAILY [facility] Last Admin: 01/04/17 10:15 Dose: Not Given Collagenase (Santyl -) 1 applic TP DAILY [facility] Last Admin: 01/04/17 10:13 Dose: 1 applic Furosemide (Lasix Injection -) 40 mg IVPB DAILY [facility] Last Admin: 01/04/17 09:31 Dose: 40 mg Guaifenesin (Robitussin Dm -) 10 ml PO Q6H PRN PRN Reason: COUGH Insulin Aspart (Novolog Vial Sliding Scale -) 1 vial SQ ACHS [facility] PRN Reason: Protocol Last Admin: 01/05/17 06:00 Dose: Not Given Insulin Detemir (Levemir Vial) 35 units SQ AM [facility] Last Admin: 01/05/17 07:14 Dose: Not Given Insulin Detemir (Levemir Vial) 15 units SQ HS [facility] Last Admin: 01/04/17 22:23 Dose: 15 units Lidocaine/Aluminum/Magnesium/Simeth (Magic Mouthwash *Sjr Formula* -) 5 ml MM Q6HPO [facility] Last Admin: 01/05/17 06:36 Dose: 5 ml Magnesium Hydroxide (Milk Of Magnesia -) 30 ml PO HS PRN PRN Reason: CONSTIPATION Methylprednisolone Sodium Succinate (Solu-Medrol -) 40 mg IVPB Q8H-IV [facility] Last Admin: 01/05/17 01:46 Dose: 40 mg Multivitamins/Minerals/Vitamin C (Tab-A-Vit -) 1 tab PO DAILY [facility] Last Admin: 01/04/17 09:32 Dose: 1 tab Pantoprazole Sodium (Protonix -) 40 mg PO DAILY [facility] Last Admin: 01/04/17 09:32 Dose: 40 mg Silver Sulfadiazine (Silvadene -) 1 applic TP BID [facility] Last Admin: 01/05/17 00:00 Dose: 1 applic Simethicone (Mylicon -) 80 mg PO Q4H PRN PRN Reason: GAS Tamsulosin HCl (Flomax -) 0.4 mg PO DAILY@0830 [facility] Last Admin: 01/04/17 09:48 Dose: Not Given Zinc Sulfate (Orazinc -) 220 mg PO DAILY [facility] Last Admin: 01/04/17 09:31 Dose: 220 mg - Objective Vital Signs: Vital Signs Temperature 97.6 F 01/05/17 06:00 Pulse Rate 78 01/05/17 06:00 Respiratory Rate 22 01/05/17 06:00 Blood Pressure 151/74 01/05/17 06:00 O2 Sat by Pulse Oximetry (%) 100 01/04/17 21:40 Cardiovascular: Yes: S1, S2 Respiratory: Yes: Diminished, Rhonchi, Other (NRB) Gastrointestinal: Yes: Normal Bowel Sounds, Soft Labs: CBC, BMP 01/04/17 05:15 01/04/17 05:15 INR, PTT INR 1.19 (0.82-1.09) H 01/02/17 20:51 Problem List - Problems (1) Pneumonia Assessment/Plan: OFFABX PER ID CULTURES Code(s): J18.9 - PNEUMONIA, UNSPECIFIED ORGANISM Qualifiers: Pneumonia type: due to unspecified organism Laterality: bilateral Lung location: unspecified part of lung Qualified Code(s): J18.9 - Pneumonia, unspecified organism (2) CKD (chronic kidney disease) Assessment/Plan: CR 1.8 MONITOR ON LASIX RENAL ON BOARD Code(s): N18.9 - CHRONIC KIDNEY DISEASE, UNSPECIFIED Qualifiers: Chronic kidney disease stage: stage 3 (moderate) Qualified Code(s): N18.3 - Chronic kidney disease, stage 3 (moderate) (3) CAD (coronary artery disease) Assessment/Plan: NO CP Code(s): I25.10 - ATHSCL HEART DISEASE OF [place] CORONARY ARTERY W/O ANG PCTRS Qualifiers: Associated angina: without angina (4) CHF (congestive heart failure) Assessment/Plan: ON LASIX CARDIO ON BOARD ECHO NOTED Code(s): I50.9 - HEART FAILURE, UNSPECIFIED Qualifiers: Congestive heart failure type: systolic Congestive heart failure chronicity: acute on chronic Qualified Code(s): I50.23 - Acute on chronic systolic (congestive) heart failure (5) Diabetes Assessment/Plan: BGM--SS ENDO Code(s): E11.9 - TYPE 2 DIABETES MELLITUS WITHOUT COMPLICATIONS Qualifiers: Diabetes mellitus complication status: with other specified complication (6) PAD (peripheral artery disease) Code(s): I73.9 - PERIPHERAL VASCULAR DISEASE, UNSPECIFIED (7) SOB (shortness of breath) Code(s): R06.02 - SHORTNESS OF BREATH (8) Abnormal CT scan, chest Code(s): R93.8 - ABNORMAL FINDINGS ON DIAGNOSTIC IMAGING OF BODY STRUCTURES (9) COPD (chronic obstructive pulmonary disease) Assessment/Plan: IV STEROIDS NEBS OXYGEN PER PULM Code(s): J44.9 - CHRONIC OBSTRUCTIVE PULMONARY DISEASE, UNSPECIFIED
[2017-01-05] MEDS: PANTOPRAZOLE 40 MG TABLET (FP) PO SCH (09:34)
[2017-01-05] MEDS: ASCORBIC ACID 250 MG TABLET (FP) PO SCH ×3 (09:34→22:31)
[2017-01-05] MEDS: ZINC SULFATE 220 MG CAPSULE (FP) PO SCH (09:34)
[2017-01-05] MEDS: TAMSULOSIN HCL 0.4 MG CAP.ER.24H (FP) PO SCH (09:35)
[2017-01-05] MEDS: FUROSEMIDE 40 MG/4 ML INJECTABLE VIAL IVPB SCH (09:35)
[2017-01-05] MEDS: ASPIRIN COATED 81 MG TABLET.EC PO SCH (09:35)
[2017-01-05] MEDS: MULTIVITAMINS (DAILY MVI) TABLET (FP) PO SCH (09:35)
[2017-01-05] MEDS: BACITRACIN 15 GM TUBE TOPICAL OINTMENT TP SCH (09:36)
[2017-01-05] MEDS: AMINO ACIDS/PROTEIN HYDROLYS 30 ML LIQUID.PKT PO SCH ×2 (09:38→16:55)
[2017-01-05] MEDS: SILVER SULFADIAZINE 1% TOP CREAM 50 GM JAR TP SCH ×3 (09:39→22:27)
[2017-01-05] MEDS: COLLAGENASE CLOSTRIDIUM HIST. 30 GRAMS TUBE TP SCH ×2 (09:39→11:49)
--- NOTE | 2017-01-05 11:23 | PN ---
Progress Note, METER MECHANIC - Note Progress Note: Pt and report doing better with [place] thick liquid.However, choked on pill given with thin water per request. Educated staff/pt/family on use of nectar thick only at this time, including medication. If cough persists with meds, may need to be crushed and given in applesauce. Selected Entries 01/04/17 01/04/17 01/04/17 02:00 06:00 10:00 Breakfast Lunch Supper Temperature 97.6 F 96.4 F L 96.4 F L 01/04/17 01/04/17 01/04/17 11:43 14:00 16:30 Breakfast 75% 25% Lunch 0 Supper Temperature 97.0 F L 96.7 F L 01/04/17 01/04/17 01/05/17 18:30 20:00 02:00 Breakfast Lunch Supper 50% Temperature 96.4 F L 97.4 F L 01/05/17 01/05/17 06:00 10:00 Breakfast Lunch Supper 50% Temperature 97.6 F 97.5 F L Laboratory Tests 01/02/17 01/04/17 20:51 05:15 WBC 19.5 H 23.0 H
--- NOTE | 2017-01-05 11:50 | PN ---
Teaching Attending Note Name of Resident: Micaela Zaman ATTENDING PHYSICIAN STATEMENT I saw and evaluated the patient. I reviewed the resident's note and discussed the case with the resident. I agree with the resident's findings and plan as documented. SUBJECTIVE: Pt seen and examined in the ICU. Less short of breath but still requiring NRB support. Refused labs this AM. OBJECTIVE: Last Vital Signs Temp Pulse Resp BP Pulse Ox 97.5 F L 89 22 111/54 93 L 01/05/17 10:00 01/05/17 10:00 01/05/17 10:00 01/05/17 10:00 01/05/17 10:00 Intake & Output 01/02/17 01/03/17 01/04/17 01/05/17 23:59 23:59 23:59 23:59 Intake Total 550 830 750 Output Total 200 1600 1300 500 Balance 350 -770 -550 -500 Weight 139 lb 12.369 oz 141 lb 9 oz 139 lb 1.787 oz Gen: tachypneic at rest Heart: RRR Lung: scattered rales Abd: soft, nontender Ext: no edema CBC, BMP 01/04/17 05:15 01/04/17 05:15 Active Medications Acetaminophen (Tylenol -) 650 mg PO Q6H PRN PRN Reason: FEVER OR PAIN Amino Acids (Prosource No Carb Liquid Pkt) 30 ml PO BID@0800,1730 [facility] Last Admin: 01/05/17 09:38 Dose: 30 ml Ascorbic Acid (Vitamin C -) 250 mg PO BID [facility] Last Admin: 01/05/17 09:34 Dose: 250 mg Aspirin (Ecotrin -) 81 mg PO DAILY [facility] Last Admin: 01/05/17 09:35 Dose: 81 mg Bacitracin (Bacitracin -) 1 applic TP DAILY [facility] Last Admin: 01/05/17 09:36 Dose: 1 applic Collagenase (Santyl -) 1 applic TP DAILY [facility] Last Admin: 01/04/17 10:13 Dose: 1 applic Furosemide (Lasix Injection -) 40 mg IVPB DAILY [facility] Last Admin: 01/05/17 09:35 Dose: 40 mg Guaifenesin (Robitussin Dm -) 10 ml PO Q6H PRN PRN Reason: COUGH Insulin Aspart (Novolog Vial Sliding Scale -) 1 vial SQ ACHS [facility] PRN Reason: Protocol Last Admin: 01/05/17 11:43 Dose: Not Given Insulin Detemir (Levemir Vial) 35 units SQ AM [facility] Last Admin: 01/05/17 07:14 Dose: Not Given Insulin Detemir (Levemir Vial) 15 units SQ HS [facility] Last Admin: 01/04/17 22:23 Dose: 15 units Lidocaine/Aluminum/Magnesium/Simeth (Magic Mouthwash *Sjr Formula* -) 5 ml MM Q6HPO [facility] Last Admin: 01/05/17 11:47 Dose: 5 ml Magnesium Hydroxide (Milk Of Magnesia -) 30 ml PO HS PRN PRN Reason: CONSTIPATION Methylprednisolone Sodium Succinate (Solu-Medrol -) 40 mg IVPB Q8H-IV [facility] Last Admin: 01/05/17 09:35 Dose: 40 mg Multivitamins/Minerals/Vitamin C (Tab-A-Vit -) 1 tab PO DAILY [facility] Last Admin: 01/05/17 09:35 Dose: 1 tab Pantoprazole Sodium (Protonix -) 40 mg PO DAILY [facility] Last Admin: 01/05/17 09:34 Dose: 40 mg Silver Sulfadiazine (Silvadene -) 1 applic TP BID [facility] Last Admin: 01/05/17 09:39 Dose: 1 applic Simethicone (Mylicon -) 80 mg PO Q4H PRN PRN Reason: GAS Tamsulosin HCl (Flomax -) 0.4 mg PO DAILY@0830 [facility] Last Admin: 01/05/17 09:35 Dose: 0.4 mg Zinc Sulfate (Orazinc -) 220 mg PO DAILY [facility] Last Admin: 01/05/17 09:34 Dose: 220 mg ASSESSMENT AND PLAN: Acute Hypoxic Respiratory Failure Acute Pneumothorax/Pneumomediastinum Interstitial Lung Disease Pneumonia Acute on Chronic LV Systolic Heart Failure CAD PAD CKD DM - continue 100% NRB to aid in nitrogen washout - continue medrol at current dose - discontinued inhaled bronchodilators at pt's request - O2 to keep Spo2 >90% - BiPAP as needed but would minimize use due to pneumothorax/pneumomediastinum - lasix - monitor urine output, creatinine - continue discussions regarding goals of care, advanced directives - poor overall prognosis - can monitor on telemetry critical care time spent in reviewing chart, evaluating patient and formulating plan 35 min
--- NOTE | 2017-01-05 12:07 | PN ---
Physical Exam: SUBJECTIVE: Patient seen and examined. He is feeling better today. He states that his breathing improved. He refused morning labs. OBJECTIVE: Vital Signs Period Temp Pulse Resp BP Sys/Blanca Pulse Ox Last 24 Hr 96.4 F-97.6 F 70-91 15-25 111-153/54-77 93-100 GENERAL: The patient is awake, alert, and fully oriented, in no mild distress, lying in bed with non-rebreather mask on face. HEAD: Normal with no signs of trauma. EYES: extraocular movements intact, sclera anicteric, conjunctiva clear. ENT: oropharynx clear without exudates, moist mucous membranes. NECK: Trachea midline, full range of motion, supple. LUNGS: Breath sounds equal, diminished bilaterally, no wheezes, no crackles, no accessory muscle use. HEART: Regular rate and rhythm, S1, S2 without murmur, rub or gallop. ABDOMEN: Soft, nontender, nondistended, normoactive bowel sounds, no guarding, no rebound, no hepatosplenomegaly, no masses. EXTREMITIES: no edema. NEUROLOGICAL: No facial asymmetry. Normal speech, gait not observed. PSYCH: Normal mood, normal affect. SKIN: Warm, dry, normal turgor, no rashes. Laboratory Results - last 24 hr 01/04/17 01/05/17 01/05/17 22:20 05:31 11:09 POC Glucometer [phone] 84.06501 Active Medications Generic Name Dose Route Start Last Admin Trade Name Freq PRN Reason Stop Dose Admin Acetaminophen 650 mg 01/03/17 12:54 Tylenol - PO Q6H PRN FEVER OR PAIN Amino Acids 30 ml 01/03/17 17:30 01/05/17 09:38 Prosource No Carb Liquid Pkt PO 30 ml BID@0800,1730 JONAS Administration Ascorbic Acid 250 mg 01/03/17 22:00 01/05/17 09:34 Vitamin C - PO 250 mg BID JONAS Administration Aspirin 81 mg 01/04/17 10:00 01/05/17 09:35 Ecotrin - PO 81 mg DAILY JONAS Administration Bacitracin 1 applic 01/04/17 10:00 01/05/17 09:36 Bacitracin - TP 1 applic DAILY JONAS Administration Collagenase 1 applic 01/04/17 10:00 01/05/17 11:49 Santyl - TP 1 applic DAILY JONAS Administration Furosemide 40 mg 01/04/17 10:00 01/05/17 09:35 Lasix Injection - IVPB 40 mg DAILY JONAS Administration Guaifenesin 10 ml 01/03/17 12:54 Robitussin Dm - PO Q6H PRN COUGH Insulin Aspart 1 vial 01/03/17 16:30 01/05/17 11:43 Novolog Vial Sliding Scale - SQ Not Given ACHS [facility] Protocol Insulin Detemir 35 units 01/04/17 07:00 01/05/17 07:14 Levemir Vial SQ Not Given AM JONAS Insulin Detemir 15 units 01/03/17 22:00 01/04/17 22:23 Levemir Vial SQ 15 units HS JON[facility] Administration Lidocaine/Aluminum/Magnesium/Simeth 5 ml 01/03/17 18:00 01/05/17 11:47 Magic Mouthwash *Sjr Formula* - MM 5 ml Q6HPO JONAS Administration Magnesium Hydroxide 30 ml 01/03/17 12:54 Milk Of Magnesia - PO HS PRN CONSTIPATION Methylprednisolone Sodium Succinate 40 mg 01/04/17 18:00 01/05/17 09:35 Solu-Medrol - IVPB 40 mg Q8H-IV JONAS Administration Multivitamins/Minerals/Vitamin C 1 tab 01/04/17 10:00 01/05/17 09:35 Tab-A-Vit - PO 1 tab DAILY JONAS Administration Pantoprazole Sodium 40 mg 01/04/17 10:00 01/05/17 09:34 Protonix - PO 40 mg DAILY JONAS Administration Silver Sulfadiazine 1 applic 01/03/17 22:00 01/05/17 09:39 Silvadene - TP 1 applic BID JONAS Administration Simethicone 80 mg 01/03/17 12:54 Mylicon - PO Q4H PRN GAS Tamsulosin HCl 0.4 mg 01/04/17 08:30 01/05/17 09:35 Flomax - PO 0.4 mg DAILY@0830 JON[facility] Administration Zinc Sulfate 220 mg 01/04/17 10:00 01/05/17 09:34 Orazinc - PO 220 mg DAILY JONAS Administration ASSESSMENT/PLAN: This is an 81 year old with respiratory insufficiency secondary to underlying lung disease ?ILD, CHF, CKD, presents with respiratory worsening secondary to new L apical pneumothorax. hypoxic respiratory failure -due to underlying chronic lung disease, new L apical pneumothorax/CHF -100% non-rebreather -cont Bronchodilators and continue Solumedrol, will decrease to 40 mg Q8h -IR attempted to put chest tube but unsuccessfully -CXR repeated, pneumothorax improved -no signs of infection, no fever, Zosyn finished 7 day course CHF/CAD s/p CABG -Lasix 40 qd -Monitor I&O -cont. Aspirin DM type 2 -ISS -BGM -Levemir 35 u HS CKD -renal function is stable - monitor bmp Constipation: -milk of magnesia -miralax BPH: cont.Flomax Gi PPX: Pantoprazole DVT PPX: -scd Disposition; transfer to telemetry Problem List - Problems (1) Abnormal CT scan, chest Code(s): R93.8 - ABNORMAL FINDINGS ON DIAGNOSTIC IMAGING OF BODY STRUCTURES (2) Acute hypoxemic respiratory failure Code(s): J96.01 - ACUTE RESPIRATORY FAILURE WITH HYPOXIA (3) COPD (chronic obstructive pulmonary disease) Code(s): J44.9 - CHRONIC OBSTRUCTIVE PULMONARY DISEASE, UNSPECIFIED (4) Diabetes mellitus, insulin dependent (IDDM), uncontrolled Code(s): E10.65 - TYPE 1 DIABETES MELLITUS WITH HYPERGLYCEMIA Qualifiers: 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 - New Patient This patient is new to me today: No - Critical Care Critical Care patient: Yes Total Critical Care Time (in minutes): 40 Critical Care Statement: The care of this patient involved high complexity decision making to prevent further life threatening deterioration of the patient 's condition and/or to evalute & treat vital organ system(s) failure or risk of failure.
[2017-01-05] MEDS: POLYETHYLENE GLYCOL 3350 119 GM BTL PO SCH (15:10)
[2017-01-05] MEDS ORDERED: HEMOQUE TEST 1 EACH EACH ONE (16:12)
[2017-01-05] MEDS ORDERED: PT OWN MED DRAWER 7, Y5N ONE (22:28)
[2017-01-06] MEDS: methylPREDNISolone NA SUCC 40 MG/1 ML VIAL IVPB SCH ×3 (02:24→17:31)
[2017-01-06] MEDS: INSULIN DETEMIR 100 UNITS/ML MDV SQ SCH ×2 (06:34→22:50)
[2017-01-06] MEDS: INSULIN SLIDING SCALE (NOVOLOG) 1 VIAL SQ SCH ×4 (06:35→22:48)
[2017-01-06] MEDS: MAG HYDROX/ALH/SMC/DPHA/LIDO 240 ML MOUTHWASH MM SCH ×4 (06:35→23:52)
[2017-01-06 06:38] LABS: MCH 29.6 pg (25.7-33.7); MCHC 32.9 g/dl (32.0-35.9); MEAN PLT VOLUME 9.1 fl (7.5-11.1); PLATELET COUNT 235 K/MM3 (134-434); RDW 14.3 % (11.9-15.9); WHITE BLOOD COUNT 24.7 K/mm3 (4.0-10.0)
[2017-01-06 06:58] LABS: ALBUMIN 2.4 g/dl (3.4-5.0); ANION GAP 7 (8-16); CALCIUM 8.3 mg/dL (8.5-10.1); CO2 39 mmol/L (21-32); GLUCOSE,RANDOM 211 mg/dL (74-106)
[2017-01-06 07:01] LABS: ALK PHOS 167 U/L (45-117); BILIRUBIN,TOTAL 0.7 mg/dL (0.2-1.0); CREATININE 1.3 mg/dL (0.7-1.3); SGOT/AST 22 U/L (15-37); SGPT/ALT 35 U/L (12-78); TOT PROT 5.6 g/dl (6.4-8.2)
--- NOTE | 2017-01-06 08:29 | PN ---
Progress Note, Physician History of Present Illness: PATIENT IN ICU ON OXYGEN--STATES BETTER THAN YESTERDAY - Current Medication List Current Medications: Active Medications Acetaminophen (Tylenol -) 650 mg PO Q6H PRN PRN Reason: FEVER OR PAIN Amino Acids (Prosource No Carb Liquid Pkt) 30 ml PO BID@0800,1730 [facility] Last Admin: 01/05/17 16:55 Dose: 30 ml Ascorbic Acid (Vitamin C -) 250 mg PO BID [facility] Last Admin: 01/05/17 22:31 Dose: Not Given Aspirin (Ecotrin -) 81 mg PO DAILY [facility] Last Admin: 01/05/17 09:35 Dose: 81 mg Bacitracin (Bacitracin -) 1 applic TP DAILY [facility] Last Admin: 01/05/17 09:36 Dose: 1 applic Collagenase (Santyl -) 1 applic TP DAILY [facility] Last Admin: 01/05/17 11:49 Dose: 1 applic Furosemide (Lasix Injection -) 40 mg IVPB DAILY [facility] Last Admin: 01/05/17 09:35 Dose: 40 mg Guaifenesin (Robitussin Dm -) 10 ml PO Q6H PRN PRN Reason: COUGH Insulin Aspart (Novolog Vial Sliding Scale -) 1 vial SQ ACHS [facility] PRN Reason: Protocol Last Admin: 01/06/17 06:35 Dose: 4 units Insulin Detemir (Levemir Vial) 35 units SQ AM [facility] Last Admin: 01/06/17 06:34 Dose: 35 units Insulin Detemir (Levemir Vial) 15 units SQ HS [facility] Last Admin: 01/05/17 22:27 Dose: 15 units Lidocaine/Aluminum/Magnesium/Simeth (Magic Mouthwash *Sjr Formula* -) 5 ml MM Q6HPO [facility] Last Admin: 01/06/17 06:35 Dose: 5 ml Magnesium Hydroxide (Milk Of Magnesia -) 30 ml PO HS PRN PRN Reason: CONSTIPATION Methylprednisolone Sodium Succinate (Solu-Medrol -) 40 mg IVPB Q8H-IV [facility] Last Admin: 01/06/17 02:24 Dose: 40 mg Multivitamins/Minerals/Vitamin C (Tab-A-Vit -) 1 tab PO DAILY [facility] Last Admin: 01/05/17 09:35 Dose: 1 tab Pantoprazole Sodium (Protonix -) 40 mg PO DAILY [facility] Last Admin: 01/05/17 09:34 Dose: 40 mg Polyethylene Glycol (Miralax (For Daily Use) -) 17 gm PO DAILY [facility] Last Admin: 01/05/17 15:10 Dose: 17 grams Silver Sulfadiazine (Silvadene -) 1 applic TP BID [facility] Last Admin: 01/05/17 22:27 Dose: 1 applic Simethicone (Mylicon -) 80 mg PO Q4H PRN PRN Reason: GAS Tamsulosin HCl (Flomax -) 0.4 mg PO DAILY@0830 [facility] Last Admin: 01/05/17 09:35 Dose: 0.4 mg Zinc Sulfate (Orazinc -) 220 mg PO DAILY [facility] Last Admin: 01/05/17 09:34 Dose: 220 mg - Objective Vital Signs: Vital Signs Temperature 97.6 F 01/06/17 06:00 Pulse Rate 82 01/06/17 06:00 Respiratory Rate 18 01/06/17 06:00 Blood Pressure 147/79 01/06/17 06:00 O2 Sat by Pulse Oximetry (%) 93 L 01/05/17 22:00 Cardiovascular: Yes: S1, S2 Respiratory: Yes: Diminished, Other (NRB) Gastrointestinal: Yes: Normal Bowel Sounds, Soft Labs: CBC, BMP 01/06/17 05:10 01/06/17 05:10 INR, PTT INR 1.19 (0.82-1.09) H 01/02/17 20:51 Problem List - Problems (1) Pneumonia Assessment/Plan: OFFABX PER ID CULTURES Code(s): J18.9 - PNEUMONIA, UNSPECIFIED ORGANISM Qualifiers: Pneumonia type: due to unspecified organism Laterality: bilateral Lung location: unspecified part of lung Qualified Code(s): J18.9 - Pneumonia, unspecified organism (2) CKD (chronic kidney disease) Assessment/Plan: CR 1.3 MONITOR ON LASIX RENAL ON BOARD Code(s): N18.9 - CHRONIC KIDNEY DISEASE, UNSPECIFIED Qualifiers: Chronic kidney disease stage: stage 3 (moderate) Qualified Code(s): N18.3 - Chronic kidney disease, stage 3 (moderate) (3) CAD (coronary artery disease) Code(s): I25.10 - ATHSCL HEART DISEASE OF [place] CORONARY ARTERY W/O ANG PCTRS Qualifiers: Associated angina: without angina (4) CHF (congestive heart failure) Assessment/Plan: ON LASIX CARDIO ON BOARD ECHO NOTED Code(s): I50.9 - HEART FAILURE, UNSPECIFIED Qualifiers: Congestive heart failure type: systolic Congestive heart failure chronicity: acute on chronic Qualified Code(s): I50.23 - Acute on chronic systolic (congestive) heart failure (5) Diabetes Assessment/Plan: BGM--SS ENDO Code(s): E11.9 - TYPE 2 DIABETES MELLITUS WITHOUT COMPLICATIONS Qualifiers: Diabetes mellitus complication status: with other specified complication (6) PAD (peripheral artery disease) Code(s): I73.9 - PERIPHERAL VASCULAR DISEASE, UNSPECIFIED (7) SOB (shortness of breath) Code(s): R06.02 - SHORTNESS OF BREATH (8) Abnormal CT scan, chest Code(s): R93.8 - ABNORMAL FINDINGS ON DIAGNOSTIC IMAGING OF BODY STRUCTURES (9) COPD (chronic obstructive pulmonary disease) Assessment/Plan: IV STEROIDS--TAPER NEBS OXYGEN PER PULM Code(s): J44.9 - CHRONIC OBSTRUCTIVE PULMONARY DISEASE, UNSPECIFIED
[2017-01-06] MEDS: AMINO ACIDS/PROTEIN HYDROLYS 30 ML LIQUID.PKT PO SCH ×2 (09:48→17:31)
[2017-01-06] MEDS: ASPIRIN COATED 81 MG TABLET.EC PO SCH (09:49)
[2017-01-06] MEDS: FUROSEMIDE 40 MG/4 ML INJECTABLE VIAL IVPB SCH (09:49)
[2017-01-06] MEDS: POLYETHYLENE GLYCOL 3350 119 GM BTL PO SCH (09:49)
[2017-01-06] MEDS: TAMSULOSIN HCL 0.4 MG CAP.ER.24H (FP) PO SCH (09:49)
[2017-01-06] MEDS: PANTOPRAZOLE 40 MG TABLET (FP) PO SCH (09:50)
[2017-01-06] MEDS: ZINC SULFATE 220 MG CAPSULE (FP) PO SCH (09:50)
[2017-01-06 09:52] LABS: PLATELET ESTIMATE ADEQUATE (NORMAL)
[2017-01-06] MEDS: ASCORBIC ACID 250 MG TABLET (FP) PO SCH ×2 (09:52→23:53)
[2017-01-06] MEDS: MULTIVITAMINS (DAILY MVI) TABLET (FP) PO SCH (09:52)
[2017-01-06] MEDS: COLLAGENASE CLOSTRIDIUM HIST. 30 GRAMS TUBE TP SCH (09:56)
[2017-01-06] MEDS: SILVER SULFADIAZINE 1% TOP CREAM 50 GM JAR TP SCH ×2 (09:57→22:47)
[2017-01-06] MEDS: BACITRACIN 15 GM TUBE TOPICAL OINTMENT TP SCH (09:59)
--- NOTE | 2017-01-06 10:00 | PN ---
Progress Note, [facility] - Note Progress Note: Pt reports that he is no longer coughing while eating or drinking. Still on nonrebreather. Selected Entries 01/05/17 01/05/17 01/05/17 02:00 06:00 10:00 Breakfast Lunch Supper 50% Temperature 97.4 F L 97.6 F 97.5 F L 01/05/17 01/05/17 01/05/17 14:00 15:00 19:57 Breakfast 75% 75% Lunch 75% 75% Supper Temperature 97.6 F 01/05/17 01/05/17 01/06/17 21:45 22:00 02:00 Breakfast Lunch Supper 25% Temperature 97 F L 97.8 F 01/06/17 06:00 Breakfast Lunch Supper Temperature 97.6 F Laboratory Tests 01/04/17 01/06/17 05:15 05:10 WBC 23.0 H 24.7 H
--- NOTE | 2017-01-06 10:28 | PN ---
Teaching Attending Note Name of Resident: Micaela Zaman ATTENDING PHYSICIAN STATEMENT I saw and evaluated the patient. I reviewed the resident's note and discussed the case with the resident. I agree with the resident's findings and plan as documented. SUBJECTIVE: Patient seen and examined in the ICU. Slightly less short of breath but still requiring partial non-rebreather. CXR: no gross change / PTX OBJECTIVE: Intake & Output 01/03/17 01/04/17 01/05/17 01/06/17 23:59 23:59 23:59 23:59 Intake Total 830 750 510 100 Output Total 1600 1300 2700 400 Balance -770 -550 -2190 -300 Weight 139 lb 12.369 oz 141 lb 9 oz 139 lb 1.787 oz 137 lb 12.623 oz Last Vital Signs Temp Pulse Resp BP Pulse Ox 98.1 F 103 H 21 118/78 99 01/06/17 10:00 01/06/17 10:00 01/06/17 10:00 01/06/17 10:00 01/06/17 09:26 Active Medications Acetaminophen (Tylenol -) 650 mg PO Q6H PRN PRN Reason: FEVER OR PAIN Amino Acids (Prosource No Carb Liquid Pkt) 30 ml PO BID@0800,1730 [facility] Last Admin: 01/06/17 09:48 Dose: 30 ml Ascorbic Acid (Vitamin C -) 250 mg PO BID [facility] Last Admin: 01/06/17 09:52 Dose: 250 mg Aspirin (Ecotrin -) 81 mg PO DAILY [facility] Last Admin: 01/06/17 09:49 Dose: 81 mg Bacitracin (Bacitracin -) 1 applic TP DAILY [facility] Last Admin: 01/06/17 09:59 Dose: 1 applic Collagenase (Santyl -) 1 applic TP DAILY [facility] Last Admin: 01/06/17 09:56 Dose: 1 applic Furosemide (Lasix Injection -) 40 mg IVPB DAILY [facility] Last Admin: 01/06/17 09:49 Dose: 40 mg Guaifenesin (Robitussin Dm -) 10 ml PO Q6H PRN PRN Reason: COUGH Insulin Aspart (Novolog Vial Sliding Scale -) 1 vial SQ ACHS [facility] PRN Reason: Protocol Last Admin: 01/06/17 06:35 Dose: 4 units Insulin Detemir (Levemir Vial) 35 units SQ AM [facility] Last Admin: 01/06/17 06:34 Dose: 35 units Insulin Detemir (Levemir Vial) 15 units SQ HS [facility] Last Admin: 01/05/17 22:27 Dose: 15 units Lidocaine/Aluminum/Magnesium/Simeth (Magic Mouthwash *Sjr Formula* -) 5 ml MM Q6HPO [facility] Last Admin: 01/06/17 06:35 Dose: 5 ml Magnesium Hydroxide (Milk Of Magnesia -) 30 ml PO HS PRN PRN Reason: CONSTIPATION Methylprednisolone Sodium Succinate (Solu-Medrol -) 40 mg IVPB Q8H-IV [facility] Last Admin: 01/06/17 09:52 Dose: 40 mg Multivitamins/Minerals/Vitamin C (Tab-A-Vit -) 1 tab PO DAILY [facility] Last Admin: 01/06/17 09:52 Dose: 1 tab Pantoprazole Sodium (Protonix -) 40 mg PO DAILY [facility] Last Admin: 01/06/17 09:50 Dose: 40 mg Polyethylene Glycol (Miralax (For Daily Use) -) 17 gm PO DAILY [facility] Last Admin: 01/06/17 09:49 Dose: 17 grams Silver Sulfadiazine (Silvadene -) 1 applic TP BID [facility] Last Admin: 01/06/17 09:57 Dose: 1 applic Simethicone (Mylicon -) 80 mg PO Q4H PRN PRN Reason: GAS Tamsulosin HCl (Flomax -) 0.4 mg PO DAILY@0830 [facility] Last Admin: 01/06/17 09:49 Dose: 0.4 mg Zinc Sulfate (Orazinc -) 220 mg PO DAILY [facility] Last Admin: 01/06/17 09:50 Dose: 220 mg Gen: Mildly tachypneic at rest Heart: RRR Lung: scattered rales Abd: soft, nontender Ext: no edema Laboratory Results - last 24 hr 01/05/17 01/05/17 01/05/17 11:09 16:27 22:09 WBC RBC Hgb Hct MCV MCHC RDW Plt Count MPV Neutrophils % Lymphocytes % Differential Comment Platelet Estimate Sodium Potassium Chloride Carbon Dioxide Anion Gap BUN Creatinine Creat Clearance w eGFR POC Glucometer 84.57354 172.97158 306.11370 Random Glucose Calcium Total Bilirubin AST ALT Alkaline Phosphatase Total Protein Albumin 01/05/17 01/05/17 01/05/17 22:12 22:13 22:30 WBC RBC Hgb Hct MCV MCHC RDW Plt Count MPV Neutrophils % Lymphocytes % Differential Comment Platelet Estimate Sodium Potassium Chloride Carbon Dioxide Anion Gap BUN Creatinine Creat Clearance w eGFR POC Glucometer > 400 > 400 Random Glucose 512 H* D Calcium Total Bilirubin AST ALT Alkaline Phosphatase Total Protein Albumin 01/06/17 01/06/17 05:10 05:10 WBC 24.7 H RBC 4.33 Hgb 12.8 Hct 39.0 MCV 90.0 MCHC 32.9 RDW 14.3 Plt Count 235 MPV 9.1 Neutrophils % 97.0 H Lymphocytes % 3.0 L D Differential Comment Manual diff done Platelet Estimate Adequate Sodium 142 Potassium 4.9 Chloride 96 L Carbon Dioxide 39 H Anion Gap 7 L BUN 67 H Creatinine 1.3 Creat Clearance w eGFR 52.85 POC Glucometer Random Glucose 211 H D Calcium 8.3 L Total Bilirubin 0.7 AST 22 ALT 35 D Alkaline Phosphatase 167 H Total Protein 5.6 L Albumin 2.4 L ASSESSMENT AND PLAN: Acute Hypoxic Respiratory Failure Acute Pneumothorax/Pneumomediastinum Interstitial Lung Disease Pneumonia Acute on Chronic LV Systolic Heart Failure CAD PAD CKD DM - continue 100% NRB to aid in nitrogen washout - continue medrol at current dose - discontinued inhaled bronchodilators at pt's request - O2 to keep Spo2 >90% - BiPAP as needed but would minimize use due to pneumothorax/pneumomediastinum - lasix - monitor urine output, creatinine - continue discussions regarding goals of care, advanced directives - poor overall prognosis - Cardiac telemetry Dr Esparza critical care time spent in reviewing chart, evaluating patient and formulating plan 35 min Problem List - Problems (1) CKD (chronic kidney disease) Code(s): N18.9 - CHRONIC KIDNEY DISEASE, UNSPECIFIED Qualifiers: Chronic kidney disease stage: stage 3 (moderate) Qualified Code(s): N18.3 - Chronic kidney disease, stage 3 (moderate) (2) PAD (peripheral artery disease) Code(s): I73.9 - PERIPHERAL VASCULAR DISEASE, UNSPECIFIED (3) Pneumonia Code(s): J18.9 - PNEUMONIA, UNSPECIFIED ORGANISM Qualifiers: Pneumonia type: due to unspecified organism Laterality: bilateral Lung location: unspecified part of lung Qualified Code(s): J18.9 - Pneumonia, unspecified organism (4) Respiratory distress Code(s): R06.00 - DYSPNEA, UNSPECIFIED (5) Microcytic anemia Code(s): D50.9 - IRON DEFICIENCY ANEMIA, UNSPECIFIED (6) BPH (benign prostatic hyperplasia) Code(s): N40.0 - BENIGN PROSTATIC HYPERPLASIA WITHOUT LOWER URINRY TRACT SYMP (7) CAD (coronary artery disease) Code(s): I25.10 - ATHSCL HEART DISEASE OF [place] CORONARY ARTERY W/O ANG PCTRS Qualifiers: Associated angina: without angina (8) CHF (congestive heart failure) Code(s): I50.9 - HEART FAILURE, UNSPECIFIED Qualifiers: Congestive heart failure type: systolic Congestive heart failure chronicity: acute on chronic Qualified Code(s): I50.23 - Acute on chronic systolic (congestive) heart failure (9) Diabetes Code(s): E11.9 - TYPE 2 DIABETES MELLITUS WITHOUT COMPLICATIONS Qualifiers: Diabetes mellitus complication status: with other specified complication
[2017-01-06] MEDS ORDERED: GLYCERIN 1 RECTAL SUPPOSITORY, ADULT RC ONE (13:36)
--- NOTE | 2017-01-06 13:40 | PN ---
Physical Exam: SUBJECTIVE: Patient seen and examined. He is feeling better today, his breathing improved. He is still on NRB. OBJECTIVE: Vital Signs Period Temp Pulse Resp BP Sys/Blanca Pulse Ox Last 24 Hr 97 F-98.1 F 80-103 15-28 118-168/61-85 93-100 GENERAL: The patient is awake, alert, and fully oriented, in no mild distress, lying in bed with non-rebreather mask on face. HEAD: Normal with no signs of trauma. EYES: extraocular movements intact, sclera anicteric, conjunctiva clear. ENT: oropharynx clear without exudates, moist mucous membranes. NECK: Trachea midline, full range of motion, supple. LUNGS: Breath sounds equal, diminished bilaterally, no wheezes, no crackles, no accessory muscle use. HEART: Regular rate and rhythm, S1, S2 without murmur, rub or gallop. ABDOMEN: Soft, nontender, nondistended, normoactive bowel sounds, no guarding, no rebound, no hepatosplenomegaly, no masses. EXTREMITIES: no edema. NEUROLOGICAL: No facial asymmetry. Normal speech, gait not observed. PSYCH: Normal mood, normal affect. SKIN: Warm, dry, normal turgor, no rashes. Laboratory Results - last 24 hr 01/05/17 01/05/17 01/05/17 16:27 22:09 22:12 WBC RBC Hgb Hct MCV MCHC RDW Plt Count MPV Neutrophils % Lymphocytes % Differential Comment Platelet Estimate Sodium Potassium Chloride Carbon Dioxide Anion Gap BUN Creatinine Creat Clearance w eGFR POC Glucometer [phone] > 400 Random Glucose Calcium Total Bilirubin AST ALT Alkaline Phosphatase Total Protein Albumin 01/05/17 01/05/17 01/06/17 22:13 22:30 05:10 WBC 24.7 H RBC 4.33 Hgb 12.8 Hct 39.0 MCV 90.0 MCHC 32.9 RDW 14.3 Plt Count 235 MPV 9.1 Neutrophils % 97.0 H Lymphocytes % 3.0 L D Differential Comment Manual diff done Platelet Estimate Adequate Sodium Potassium Chloride Carbon Dioxide Anion Gap BUN Creatinine Creat Clearance w eGFR POC Glucometer > 400 Random Glucose 512 H* D Calcium Total Bilirubin AST ALT Alkaline Phosphatase Total Protein Albumin 01/06/17 05:10 WBC RBC Hgb Hct MCV MCHC RDW Plt Count MPV Neutrophils % Lymphocytes % Differential Comment Platelet Estimate Sodium 142 Potassium 4.9 Chloride 96 L Carbon Dioxide 39 H Anion Gap 7 L BUN 67 H Creatinine 1.3 Creat Clearance w eGFR 52.85 POC Glucometer Random Glucose 211 H D Calcium 8.3 L Total Bilirubin 0.7 AST 22 ALT 35 D Alkaline Phosphatase 167 H Total Protein 5.6 L Albumin 2.4 L Active Medications Generic Name Dose Route Start Last Admin Trade Name Freq PRN Reason Stop Dose Admin Acetaminophen 650 mg 01/03/17 12:54 Tylenol - PO Q6H PRN FEVER OR PAIN Amino Acids 30 ml 01/03/17 17:30 01/06/17 09:48 Prosource No Carb Liquid Pkt PO 30 ml BID@0800,1730 JONAS Administration Ascorbic Acid 250 mg 01/03/17 22:00 01/06/17 09:52 Vitamin C - PO 250 mg BID JONAS Administration Aspirin 81 mg 01/04/17 10:00 01/06/17 09:49 Ecotrin - PO 81 mg DAILY JONAS Administration Bacitracin 1 applic 01/04/17 10:00 01/06/17 09:59 Bacitracin - TP 1 applic DAILY JONAS Administration Collagenase 1 applic 01/04/17 10:00 01/06/17 09:56 Santyl - TP 1 applic DAILY JONAS Administration Furosemide 40 mg 01/04/17 10:00 01/06/17 09:49 Lasix Injection - IVPB 40 mg DAILY JONAS Administration Glycerin 1 each 01/06/17 13:36 Glycerin Suppository Adult - MA 01/06/17 13:37 ONCE ONE Guaifenesin 10 ml 01/03/17 12:54 Robitussin Dm - PO Q6H PRN COUGH Insulin Aspart 1 vial 01/03/17 16:30 01/06/17 11:35 Novolog Vial Sliding Scale - SQ 8 units ACHS JONAS Administration Protocol Insulin Detemir 35 units 01/04/17 07:00 01/06/17 06:34 Levemir Vial SQ 35 units AM JONAS Administration Insulin Detemir 15 units 01/03/17 22:00 01/05/17 22:27 Levemir Vial SQ 15 units HS JONAS Administration Lidocaine/Aluminum/Magnesium/Simeth 5 ml 01/03/17 18:00 01/06/17 11:35 Magic Mouthwash *Sjr Formula* - MM 5 ml Q6HPO JONAS Administration Magnesium Hydroxide 30 ml 01/03/17 12:54 Milk Of Magnesia - PO HS PRN CONSTIPATION Methylprednisolone Sodium Succinate 40 mg 01/04/17 18:00 01/06/17 09:52 Solu-Medrol - IVPB 40 mg Q8H-IV JONAS Administration Multivitamins/Minerals/Vitamin C 1 tab 01/04/17 10:00 01/06/17 09:52 Tab-A-Vit - PO 1 tab DAILY JONAS Administration Pantoprazole Sodium 40 mg 01/04/17 10:00 01/06/17 09:50 Protonix - PO 40 mg DAILY JONAS Administration Polyethylene Glycol 17 gm 01/05/17 15:15 01/06/17 09:49 Miralax (For Daily Use) - PO 17 grams DAILY JONAS Administration Silver Sulfadiazine 1 applic 01/03/17 22:00 01/06/17 09:57 Silvadene - TP 1 applic BID JONAS Administration Simethicone 80 mg 01/03/17 12:54 Mylicon - PO Q4H PRN GAS Tamsulosin HCl 0.4 mg 01/04/17 08:30 01/06/17 09:49 Flomax - PO 0.4 mg DAILY@0830 JONAS Administration Zinc Sulfate 220 mg 01/04/17 10:00 01/06/17 09:50 Orazinc - PO 220 mg DAILY JONAS Administration ASSESSMENT/PLAN: This is an 81 year old with respiratory insufficiency secondary to underlying lung disease ?ILD, CHF, CKD, presents with respiratory worsening secondary to new L apical pneumothorax. hypoxic respiratory failure -due to underlying chronic lung disease, new L apical pneumothorax/CHF -100% non-rebreather -cont Bronchodilators and Solumedrol decreased to 40 mg Q8h -IR attempted to put chest tube but unsuccessfully -CXR repeated, pneumothorax improved -no signs of infection, no fever, Zosyn finished 7 day course -will change his Non rebreather to face tent with addition to vaporiser CHF/CAD s/p CABG -Lasix 40 qd -Monitor I&O -cont. Aspirin DM type 2 -ISS -BGM -Levemir 35 u HS CKD -renal function is stable - monitor bmp Constipation: -milk of magnesia -miralax -added glycerin suppository BPH: cont.Flomax Gi PPX: Pantoprazole DVT PPX: -scd Disposition; transfer to telemetry Problem List - Problems (1) Abnormal CT scan, chest Code(s): R93.8 - ABNORMAL FINDINGS ON DIAGNOSTIC IMAGING OF BODY STRUCTURES (2) Acute hypoxemic respiratory failure Code(s): J96.01 - ACUTE RESPIRATORY FAILURE WITH HYPOXIA (3) COPD (chronic obstructive pulmonary disease) Code(s): J44.9 - CHRONIC OBSTRUCTIVE PULMONARY DISEASE, UNSPECIFIED (4) Diabetes mellitus, insulin dependent (IDDM), uncontrolled Code(s): E10.65 - TYPE 1 DIABETES MELLITUS WITH HYPERGLYCEMIA Qualifiers: 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 - New Patient This patient is new to me today: No - Critical Care Critical Care patient: No Total Critical Care Time (in minutes): 30 Critical Care Statement: The care of this patient involved high complexity decision making to prevent further life threatening deterioration of the patient 's condition and/or to evalute & treat vital organ system(s) failure or risk of failure.
[2017-01-06] MEDS ORDERED: MAGNESIUM HYDROX 2400MG/30ML ORAL SUSPENSION 30 ML CUP PO PRN (15:40)
[2017-01-06] MEDS ORDERED: guaiFENesin/D-METHORPHAN HB 10 ML UNIT-DOSE CUPS PO PRN (15:40)
[2017-01-06] MEDS: NYSTATIN POWDER 100,000 UNITS/GM - 15 GM TOPICAL POWDER TP SCH (17:26)
--- NOTE | 2017-01-06 20:36 | CONSULT ---
Consult - text type - Consultation Consultation Note: Reconsulted for ?PTX and pneumomediastinum. 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 Continue daily CXR.
[2017-01-06] MEDS: NYSTATIN 100,000 UNIT/GM TOPICAL CREAM 15 GM TUBE TP SCH (23:52)
[2017-01-07] MEDS: methylPREDNISolone NA SUCC 40 MG/1 ML VIAL IVPB SCH ×3 (01:57→17:05)
[2017-01-07] MEDS: INSULIN DETEMIR 100 UNITS/ML MDV SQ SCH ×2 (06:29→22:46)
[2017-01-07] MEDS: INSULIN SLIDING SCALE (NOVOLOG) 1 VIAL SQ SCH ×3 (06:30→22:51)
[2017-01-07] MEDS: MAG HYDROX/ALH/SMC/DPHA/LIDO 240 ML MOUTHWASH MM SCH ×4 (06:31→23:08)
[2017-01-07 08:01] LABS: BASOPHIL 0.2 % (0-2.0); MCHC 33.3 g/dl (32.0-35.9); MEAN CELL VOLUME 90.2 fl (80-96); PLATELET COUNT 206 K/MM3 (134-434); RDW 14.3 % (11.9-15.9); WHITE BLOOD COUNT 28.2 K/mm3 (4.0-10.0)
[2017-01-07 08:28] LABS: CALCIUM 8.4 mg/dL (8.5-10.1)
[2017-01-07 08:34] LABS: ALBUMIN 2.5 g/dl (3.4-5.0); ALK PHOS 149 U/L (45-117); ANION GAP 11 (8-16); BILIRUBIN,TOTAL 0.7 mg/dL (0.2-1.0); CO2 33 mmol/L (21-32); CREATININE 1.3 mg/dL (0.7-1.3); GLUCOSE,RANDOM 97 mg/dL (74-106); SGOT/AST 21 U/L (15-37); SGPT/ALT 32 U/L (12-78); TOT PROT 5.6 g/dl (6.4-8.2)
[2017-01-07] MEDS: HEPARIN NA (PORCINE) 5,000 UNITS/ML 1ML VIAL SQ SCH ×3 (09:15→22:47)
[2017-01-07] MEDS: AMINO ACIDS/PROTEIN HYDROLYS 30 ML LIQUID.PKT PO SCH ×2 (09:16→17:06)
[2017-01-07] MEDS ORDERED: METOPROLOL SUCCINATE 25 MG TAB.SR.24H (FP) ONE (09:21)
[2017-01-07] MEDS ORDERED: HEPARIN NA (PORCINE) 5,000 UNITS/ML 1ML VIAL ONE (09:21)
--- NOTE | 2017-01-07 09:53 | EKG ---
Test Reason : Blood Pressure : / mmHG Vent. Rate : 129 BPM Atrial Rate : 138 BPM P-R Int : 000 ms QRS Dur : 084 ms QT Int : 312 ms P-R-T Axes : 000 -05 147 degrees QTc Int : 457 ms ATRIAL FIBRILLATION WITH RAPID VENTRICULAR RESPONSE SEPTAL INFARCT (CITED ON OR BEFORE 05-AUG-2016) ABNORMAL ECG Confirmed by QUIANA WHITLOCK MD ([id number]) on 01/07/2017 9:53:28 AM Referred By: Fatuma SARMIENTO Confirmed By:QUIANA WHITLOCK MD
[2017-01-07] MEDS: NYSTATIN POWDER 100,000 UNITS/GM - 15 GM TOPICAL POWDER TP SCH (10:18)
[2017-01-07] MEDS: SILVER SULFADIAZINE 1% TOP CREAM 50 GM JAR TP SCH ×2 (10:20→22:49)
[2017-01-07] MEDS: FUROSEMIDE 40 MG/4 ML INJECTABLE VIAL IVPB SCH (10:32)
[2017-01-07] MEDS: ASCORBIC ACID 250 MG TABLET (FP) PO SCH ×2 (10:53→22:42)
[2017-01-07] MEDS ORDERED: METOPROLOL SUCCINATE 25 MG TAB.SR.24H (FP) PO ONE (11:00)
--- NOTE | 2017-01-07 11:20 | PN ---
Progress Note, Physician History of Present Illness: PULMONARY AWAKE,NO CHANGE,MILDLY DYSPNEIC,ON PARTIAL NON-REBREATHER - Current Medication List Current Medications: Active Medications Acetaminophen (Tylenol -) 650 mg PO Q6H PRN PRN Reason: FEVER OR PAIN Amino Acids (Prosource No Carb Liquid Pkt) 30 ml PO BID@0800,1730 [facility] Last Admin: 01/06/17 17:31 Dose: 30 ml Ascorbic Acid (Vitamin C -) 250 mg PO BID [facility] Last Admin: 01/06/17 23:53 Dose: 250 mg Aspirin (Ecotrin -) 81 mg PO DAILY [facility] Bacitracin (Bacitracin -) 1 applic TP DAILY [facility] Collagenase (Santyl -) 1 applic TP DAILY [facility] Furosemide (Lasix Injection -) 40 mg IVPB DAILY [facility] Last Admin: 01/07/17 10:32 Dose: 40 mg Guaifenesin (Robitussin Dm -) 10 ml PO Q6H PRN PRN Reason: COUGH Heparin Sodium (Porcine) (Heparin -) 5,000 unit SQ BID [facility] Last Admin: 01/07/17 09:15 Dose: 5,000 unit Insulin Aspart (Novolog Vial Sliding Scale -) 1 vial SQ ACHS [facility] PRN Reason: Protocol Last Admin: 01/07/17 06:30 Dose: Not Given Insulin Detemir (Levemir Vial) 15 units SQ HS [facility] Last Admin: 01/06/17 22:50 Dose: 15 units Insulin Detemir (Levemir Vial) 35 units SQ AM [facility] Last Admin: 01/07/17 06:29 Dose: Not Given Lidocaine/Aluminum/Magnesium/Simeth (Magic Mouthwash *Sjr Formula* -) 5 ml MM Q6HPO [facility] Last Admin: 01/07/17 06:31 Dose: 5 ml Magnesium Hydroxide (Milk Of Magnesia -) 30 ml PO HS PRN PRN Reason: CONSTIPATION Methylprednisolone Sodium Succinate (Solu-Medrol -) 40 mg IVPB Q8H-IV [facility] Last Admin: 01/07/17 10:32 Dose: 40 mg Multivitamins/Minerals/Vitamin C (Tab-A-Vit -) 1 tab PO DAILY [facility] Nystatin (Mycostatin Cream -) 1 applic TP BID [facility] Last Admin: 01/06/17 23:52 Dose: 1 applic Nystatin (Nystop Powder -) 1 applic TP DAILY [facility] Last Admin: 01/06/17 17:26 Dose: 1 applic Pantoprazole Sodium (Protonix -) 40 mg PO DAILY JONAS Polyethylene Glycol (Miralax (For Daily Use) -) 17 gm PO DAILY [facility] Last Admin: 01/06/17 09:49 Dose: 17 grams Silver Sulfadiazine (Silvadene -) 1 applic TP BID [facility] Last Admin: 01/06/17 22:47 Dose: 1 applic Simethicone (Mylicon -) 80 mg PO Q4H PRN PRN Reason: GAS Tamsulosin HCl (Flomax -) 0.4 mg PO DAILY@0830 [facility] Zinc Sulfate (Orazinc -) 220 mg PO DAILY [facility] - Objective Vital Signs: Vital Signs Temperature 98.7 F 01/07/17 06:00 Pulse Rate 91 H 01/07/17 06:00 Respiratory Rate 20 01/07/17 06:00 Blood Pressure 126/75 01/07/17 06:00 O2 Sat by Pulse Oximetry (%) 98 01/07/17 01:36 Constitutional: Yes: Calm, Thin Eyes: Yes: WNL HENT: Yes: WNL Neck: Yes: WNL Cardiovascular: Yes: Regular Rate and Rhythm, S1, S2 Respiratory: Yes: Rales (BILATERAL CRACKLES) Gastrointestinal: Yes: Normal Bowel Sounds, Soft Extremities: Yes: WNL Edema: No Labs: CBC, BMP 01/07/17 05:35 01/07/17 05:35 INR, PTT INR 1.19 (0.82-1.09) H 01/02/17 20:51 - ....Imaging Chest X-ray: Report Reviewed, Image Reviewed (no change) Problem List - Problems (1) Acute hypoxemic respiratory failure Code(s): J96.01 - ACUTE RESPIRATORY FAILURE WITH HYPOXIA Assessment/Plan Problem List - Problems (1) CKD (chronic kidney disease) Code(s): N18.9 - CHRONIC KIDNEY DISEASE, UNSPECIFIED (2) PAD (peripheral artery disease) Code(s): I73.9 - PERIPHERAL VASCULAR DISEASE, UNSPECIFIED (3) Pneumonia Code(s): J18.9 - PNEUMONIA, UNSPECIFIED ORGANISM Qualifiers: Pneumonia type: due to unspecified organism Laterality: bilateral Lung location: unspecified part of lung Qualified Code(s): J18.9 - Pneumonia, unspecified organism (4) Respiratory distress Code(s): R06.00 - DYSPNEA, UNSPECIFIED (5) Microcytic anemia Code(s): D50.9 - IRON DEFICIENCY ANEMIA, UNSPECIFIED (6) BPH (benign prostatic hyperplasia) Code(s): N40.0 - BENIGN PROSTATIC HYPERPLASIA WITHOUT LOWER URINRY TRACT SYMP (7) CAD (coronary artery disease) Code(s): I25.10 - ATHSCL HEART DISEASE OF [place] CORONARY ARTERY W/O ANG PCTRS Qualifiers: Associated angina: with unspecified angina (8) CHF (congestive heart failure) Code(s): I50.9 - HEART FAILURE, UNSPECIFIED Qualifiers: Congestive heart failure type: systolic Congestive heart failure chronicity: acute on chronic Qualified Code(s): I50.23 - Acute on chronic systolic (congestive) heart failure (9) Diabetes Code(s): E11.9 - TYPE 2 DIABETES MELLITUS WITHOUT COMPLICATIONS Qualifiers: Diabetes mellitus complication status: with other specified complication 10 ACUTE HYPOXEMIC RESPIRATORY FAILURE I1. PNEUMONIA 12 ILD 13 PTX Assessment/Plan O2 to maintain O2sat 90% Lasix Daily weights I&O BD TX medrol same dose monitor renal function monitor chest x-rays Dr Tyler
[2017-01-07] MEDS: ZINC SULFATE 220 MG CAPSULE (FP) PO SCH (14:17)
[2017-01-07] MEDS: MULTIVITAMINS (DAILY MVI) TABLET (FP) PO SCH (14:17)
[2017-01-07] MEDS: PANTOPRAZOLE 40 MG TABLET (FP) PO SCH (14:18)
[2017-01-07] MEDS: NYSTATIN 100,000 UNIT/GM TOPICAL CREAM 15 GM TUBE TP SCH ×2 (14:18→22:48)
[2017-01-07] MEDS: POLYETHYLENE GLYCOL 3350 119 GM BTL PO SCH (14:18)
[2017-01-07] MEDS: TAMSULOSIN HCL 0.4 MG CAP.ER.24H (FP) PO SCH (14:19)
[2017-01-07] MEDS: ASPIRIN COATED 81 MG TABLET.EC PO SCH (14:19)
[2017-01-07] MEDS: COLLAGENASE CLOSTRIDIUM HIST. 30 GRAMS TUBE TP SCH (14:20)
--- NOTE | 2017-01-07 15:51 | PN ---
Progress Note, Physician Chief Complaint: Cardiology COnsult Palpitation History of Present Illness: Patient with history of ILD, CAD, CABG PVD. Echo shwing mildly reduced LV function. He has a small PNX and is being treated for heart failure. At 7 AM developed rapid Afib. He was given one dose of metoprolol with some improvement in HR. No no palpitation. His Dyspnea is at baseline. - Current Medication List Current Medications: Active Medications Acetaminophen (Tylenol -) 650 mg PO Q6H PRN PRN Reason: FEVER OR PAIN Amino Acids (Prosource No Carb Liquid Pkt) 30 ml PO BID@0800,1730 [facility] Last Admin: 01/07/17 09:16 Dose: 30 ml Ascorbic Acid (Vitamin C -) 250 mg PO BID [facility] Last Admin: 01/06/17 23:53 Dose: 250 mg Aspirin (Ecotrin -) 81 mg PO DAILY [facility] Last Admin: 01/07/17 14:19 Dose: 81 mg Bacitracin (Bacitracin -) 1 applic TP DAILY [facility] Collagenase (Santyl -) 1 applic TP DAILY [facility] Last Admin: 01/07/17 14:20 Dose: 1 applic Furosemide (Lasix Injection -) 40 mg IVPB DAILY [facility] Last Admin: 01/07/17 10:32 Dose: 40 mg Guaifenesin (Robitussin Dm -) 10 ml PO Q6H PRN PRN Reason: COUGH Heparin Sodium (Porcine) (Heparin -) 5,000 unit SQ BID [facility] Last Admin: 01/07/17 09:15 Dose: 5,000 unit Insulin Aspart (Novolog Vial Sliding Scale -) 1 vial SQ ACHS [facility] PRN Reason: Protocol Last Admin: 01/07/17 06:30 Dose: Not Given Insulin Detemir (Levemir Vial) 15 units SQ HS [facility] Last Admin: 01/06/17 22:50 Dose: 15 units Insulin Detemir (Levemir Vial) 35 units SQ AM [facility] Last Admin: 01/07/17 06:29 Dose: Not Given Lidocaine/Aluminum/Magnesium/Simeth (Magic Mouthwash *Sjr Formula* -) 5 ml MM Q6HPO [facility] Last Admin: 01/07/17 13:21 Dose: 5 ml Magnesium Hydroxide (Milk Of Magnesia -) 30 ml PO HS PRN PRN Reason: CONSTIPATION Methylprednisolone Sodium Succinate (Solu-Medrol -) 40 mg IVPB Q8H-IV [facility] Last Admin: 01/07/17 10:32 Dose: 40 mg Multivitamins/Minerals/Vitamin C (Tab-A-Vit -) 1 tab PO DAILY [facility] Last Admin: 01/07/17 14:17 Dose: 1 tab Nystatin (Mycostatin Cream -) 1 applic TP BID [facility] Last Admin: 01/07/17 14:18 Dose: 1 applic Nystatin (Nystop Powder -) 1 applic TP DAILY [facility] Last Admin: 01/07/17 10:18 Dose: 1 applic Pantoprazole Sodium (Protonix -) 40 mg PO DAILY [facility] Last Admin: 01/07/17 14:18 Dose: 40 mg Polyethylene Glycol (Miralax (For Daily Use) -) 17 gm PO DAILY [facility] Last Admin: 01/07/17 14:18 Dose: 17 grams Silver Sulfadiazine (Silvadene -) 1 applic TP BID [facility] Last Admin: 01/07/17 10:20 Dose: 1 applic Simethicone (Mylicon -) 80 mg PO Q4H PRN PRN Reason: GAS Tamsulosin HCl (Flomax -) 0.4 mg PO DAILY@0830 [facility] Last Admin: 01/07/17 14:19 Dose: 0.4 mg Zinc Sulfate (Orazinc -) 220 mg PO DAILY [facility] Last Admin: 01/07/17 14:17 Dose: 220 mg - Objective Vital Signs: Vital Signs Temperature 96.3 F L 01/07/17 14:00 Pulse Rate 123 H 01/07/17 14:00 Respiratory Rate 22 01/07/17 14:00 Blood Pressure 117/61 01/07/17 14:00 O2 Sat by Pulse Oximetry (%) 100 01/07/17 12:09 Constitutional: Yes: Cachectic, Mild Distress HENT: Yes: Atraumatic, Normocephalic Neck: Yes: Supple, Trachea Midline Cardiovascular: Yes: Tachycardia, Pulse Irregular Respiratory: Yes: Rhonchi Gastrointestinal: Yes: WNL Edema: No Labs: CBC, BMP 01/07/17 05:35 01/07/17 05:35 INR, PTT INR 1.19 (0.82-1.09) H 01/02/17 20:51 - ....Imaging Chest X-ray: Report Reviewed EKG: Image Reviewed Problem List - Problems (1) Afib Assessment/Plan: Rapid Afib responded to low dose metoprolol. Will Add metoprolol 12.5mg TID DVT prophylaxis Code(s): I48.91 - UNSPECIFIED ATRIAL FIBRILLATION Qualifiers: Atrial fibrillation type: persistent Qualified Code(s): I48.1 - Persistent atrial fibrillation (2) Acute hypoxemic respiratory failure Code(s): J96.01 - ACUTE RESPIRATORY FAILURE WITH HYPOXIA (3) CAD (coronary artery disease) Code(s): I25.10 - ATHSCL HEART DISEASE OF [place] CORONARY ARTERY W/O ANG PCTRS Qualifiers: Associated angina: without angina
[2017-01-07] MEDS: SIMETHICONE 80 MG TAB.CHEW (FP) PO PRN (19:55)
--- NOTE | 2017-01-07 20:30 | PN ---
Progress Note, Physician Chief Complaint: PNEUMOTHORAX History of Present Illness: COMFORTABLE IN BED, ON PARTIAL REBREATHER, MILD DYSPNEA. CXR SHOWED TINY RIGHT PNEUMOTHORAX. - Current Medication List Current Medications: Active Medications Acetaminophen (Tylenol -) 650 mg PO Q6H PRN PRN Reason: FEVER OR PAIN Amino Acids (Prosource No Carb Liquid Pkt) 30 ml PO BID@0800,1730 [facility] Last Admin: 01/07/17 17:06 Dose: 30 ml Ascorbic Acid (Vitamin C -) 250 mg PO BID [facility] Last Admin: 01/07/17 10:53 Dose: 250 mg Aspirin (Ecotrin -) 81 mg PO DAILY [facility] Last Admin: 01/07/17 14:19 Dose: 81 mg Bacitracin (Bacitracin -) 1 applic TP DAILY [facility] Collagenase (Santyl -) 1 applic TP DAILY [facility] Last Admin: 01/07/17 14:20 Dose: 1 applic Furosemide (Lasix Injection -) 40 mg IVPB DAILY [facility] Last Admin: 01/07/17 10:32 Dose: 40 mg Guaifenesin (Robitussin Dm -) 10 ml PO Q6H PRN PRN Reason: COUGH Heparin Sodium (Porcine) (Heparin -) 5,000 unit SQ BID [facility] Last Admin: 01/07/17 16:36 Dose: Not Given Insulin Aspart (Novolog Vial Sliding Scale -) 1 vial SQ ACHS [facility] PRN Reason: Protocol Last Admin: 01/07/17 16:35 Dose: Not Given Insulin Detemir (Levemir Vial) 15 units SQ HS [facility] Last Admin: 01/06/17 22:50 Dose: 15 units Insulin Detemir (Levemir Vial) 35 units SQ AM [facility] Last Admin: 01/07/17 06:29 Dose: Not Given Lidocaine/Aluminum/Magnesium/Simeth (Magic Mouthwash *Sjr Formula* -) 5 ml MM Q6HPO [facility] Last Admin: 01/07/17 17:06 Dose: 5 ml Magnesium Hydroxide (Milk Of Magnesia -) 30 ml PO HS PRN PRN Reason: CONSTIPATION Methylprednisolone Sodium Succinate (Solu-Medrol -) 40 mg IVPB Q8H-IV [facility] Last Admin: 01/07/17 17:05 Dose: 40 mg Metoprolol Tartrate (Lopressor -) 12.5 mg PO TID [facility] Multivitamins/Minerals/Vitamin C (Tab-A-Vit -) 1 tab PO DAILY [facility] Last Admin: 01/07/17 14:17 Dose: 1 tab Nystatin (Mycostatin Cream -) 1 applic TP BID [facility] Last Admin: 01/07/17 14:18 Dose: 1 applic Nystatin (Nystop Powder -) 1 applic TP DAILY [facility] Last Admin: 01/07/17 10:18 Dose: 1 applic Pantoprazole Sodium (Protonix -) 40 mg PO DAILY [facility] Last Admin: 01/07/17 14:18 Dose: 40 mg Polyethylene Glycol (Miralax (For Daily Use) -) 17 gm PO DAILY [facility] Last Admin: 01/07/17 14:18 Dose: 17 grams Silver Sulfadiazine (Silvadene -) 1 applic TP BID [facility] Last Admin: 01/07/17 10:20 Dose: 1 applic Simethicone (Mylicon -) 80 mg PO Q4H PRN PRN Reason: GAS Last Admin: 01/07/17 19:55 Dose: 80 mg Tamsulosin HCl (Flomax -) 0.4 mg PO DAILY@0830 [facility] Last Admin: 01/07/17 14:19 Dose: 0.4 mg Zinc Sulfate (Orazinc -) 220 mg PO DAILY [facility] Last Admin: 01/07/17 14:17 Dose: 220 mg - Objective Vital Signs: Vital Signs Temperature 96.3 F L 01/07/17 14:00 Pulse Rate 123 H 01/07/17 14:00 Respiratory Rate 22 01/07/17 14:00 Blood Pressure 117/61 01/07/17 14:00 O2 Sat by Pulse Oximetry (%) 100 01/07/17 12:09 Constitutional: Yes: Well Nourished, No Distress, Calm Cardiovascular: Yes: Pulse Irregular Respiratory: Yes: Diminished (RUL) Gastrointestinal: Yes: Normal Bowel Sounds Edema: No Peripheral Pulses WNL: Yes Labs: CBC, BMP 01/07/17 05:35 01/07/17 05:35 INR, PTT INR 1.19 (0.82-1.09) H 01/02/17 20:51 Problem List - Problems (1) Afib Assessment/Plan: STILL IN AFIB AT THIS TIME ON HEPARIN SQ BID Code(s): I48.91 - UNSPECIFIED ATRIAL FIBRILLATION Qualifiers: Atrial fibrillation type: persistent Qualified Code(s): I48.1 - Persistent atrial fibrillation (2) CKD (chronic kidney disease) Code(s): N18.9 - CHRONIC KIDNEY DISEASE, UNSPECIFIED Qualifiers: Chronic kidney disease stage: stage 3 (moderate) Qualified Code(s): N18.3 - Chronic kidney disease, stage 3 (moderate) (3) COPD (chronic obstructive pulmonary disease) Code(s): J44.9 - CHRONIC OBSTRUCTIVE PULMONARY DISEASE, UNSPECIFIED (4) Pneumothorax Assessment/Plan: TINY ON RIGHT UL, MILD DYSPNEA, ON PARTIAL REBREATHER Code(s): J93.9 - PNEUMOTHORAX, UNSPECIFIED (5) Diabetes Code(s): E11.9 - TYPE 2 DIABETES MELLITUS WITHOUT COMPLICATIONS Qualifiers: Diabetes mellitus complication status: with other specified complication Assessment/Plan MAINTAIN O2 >90 MONITOR LABS IN AM VSS OTHERWISE STABLE
[2017-01-07] MEDS ORDERED: PT OWN MED DRAWER 7, Y5N ONE (22:32)
[2017-01-07] MEDS: METOPROLOL TARTRATE 25 MG TABLET (FP) PO SCH (22:47)
[2017-01-08] MEDS: methylPREDNISolone NA SUCC 40 MG/1 ML VIAL IVPB SCH ×3 (02:01→17:28)
[2017-01-08] MEDS: INSULIN DETEMIR 100 UNITS/ML MDV SQ SCH ×2 (06:22→21:47)
[2017-01-08] MEDS: MAG HYDROX/ALH/SMC/DPHA/LIDO 240 ML MOUTHWASH MM SCH ×3 (06:22→17:28)
[2017-01-08] MEDS: METOPROLOL TARTRATE 25 MG TABLET (FP) PO SCH ×3 (06:22→21:48)
[2017-01-08] MEDS: INSULIN SLIDING SCALE (NOVOLOG) 1 VIAL SQ SCH ×4 (06:23→21:47)
[2017-01-08] MEDS ORDERED: PT OWN MED DRAWER 7, Y5N ONE (09:34)
[2017-01-08] MEDS: AMINO ACIDS/PROTEIN HYDROLYS 30 ML LIQUID.PKT PO SCH ×2 (09:35→17:28)
[2017-01-08] MEDS: PANTOPRAZOLE 40 MG TABLET (FP) PO SCH (09:36)
[2017-01-08] MEDS: MULTIVITAMINS (DAILY MVI) TABLET (FP) PO SCH (09:36)
[2017-01-08] MEDS: NYSTATIN POWDER 100,000 UNITS/GM - 15 GM TOPICAL POWDER TP SCH (09:36)
[2017-01-08] MEDS: ZINC SULFATE 220 MG CAPSULE (FP) PO SCH (09:36)
[2017-01-08] MEDS: TAMSULOSIN HCL 0.4 MG CAP.ER.24H (FP) PO SCH (09:36)
[2017-01-08] MEDS: COLLAGENASE CLOSTRIDIUM HIST. 30 GRAMS TUBE TP SCH (09:36)
[2017-01-08] MEDS: ASPIRIN COATED 81 MG TABLET.EC PO SCH (09:36)
[2017-01-08] MEDS: SILVER SULFADIAZINE 1% TOP CREAM 50 GM JAR TP SCH ×2 (09:36→21:48)
[2017-01-08] MEDS: NYSTATIN 100,000 UNIT/GM TOPICAL CREAM 15 GM TUBE TP SCH ×2 (09:37→21:48)
[2017-01-08] MEDS: HEPARIN NA (PORCINE) 5,000 UNITS/ML 1ML VIAL SQ SCH ×2 (09:38→21:47)
[2017-01-08] MEDS: POLYETHYLENE GLYCOL 3350 119 GM BTL PO SCH (09:38)
[2017-01-08] MEDS: ASCORBIC ACID 250 MG TABLET (FP) PO SCH ×2 (09:38→21:49)
[2017-01-08] MEDS: FUROSEMIDE 40 MG/4 ML INJECTABLE VIAL IVPB SCH (09:40)
[2017-01-08] MEDS: BACITRACIN 15 GM TUBE TOPICAL OINTMENT TP SCH (10:00)
--- NOTE | 2017-01-08 11:40 | PN ---
Progress Note, Physician History of Present Illness: PULMONARY MORE COMFORTABLE,LESS DYSPNEIC ON 100%NRM - Current Medication List Current Medications: Active Medications Acetaminophen (Tylenol -) 650 mg PO Q6H PRN PRN Reason: FEVER OR PAIN Amino Acids (Prosource No Carb Liquid Pkt) 30 ml PO BID@0800,1730 [facility] Last Admin: 01/08/17 09:35 Dose: 30 ml Ascorbic Acid (Vitamin C -) 250 mg PO BID [facility] Last Admin: 01/08/17 09:38 Dose: 250 mg Aspirin (Ecotrin -) 81 mg PO DAILY [facility] Last Admin: 01/08/17 09:36 Dose: 81 mg Bacitracin (Bacitracin -) 1 applic TP DAILY [facility] Collagenase (Santyl -) 1 applic TP DAILY [facility] Last Admin: 01/08/17 09:36 Dose: 1 applic Furosemide (Lasix Injection -) 40 mg IVPB DAILY [facility] Last Admin: 01/08/17 09:40 Dose: 40 mg Guaifenesin (Robitussin Dm -) 10 ml PO Q6H PRN PRN Reason: COUGH Heparin Sodium (Porcine) (Heparin -) 5,000 unit SQ BID [facility] Last Admin: 01/08/17 09:38 Dose: 5,000 unit Insulin Aspart (Novolog Vial Sliding Scale -) 1 vial SQ ACHS [facility] PRN Reason: Protocol Last Admin: 01/08/17 06:23 Dose: 4 units Insulin Detemir (Levemir Vial) 15 units SQ HS [facility] Last Admin: 01/07/17 22:46 Dose: 15 units Insulin Detemir (Levemir Vial) 35 units SQ AM [facility] Last Admin: 01/08/17 06:22 Dose: 35 units Lidocaine/Aluminum/Magnesium/Simeth (Magic Mouthwash *Sjr Formula* -) 5 ml MM Q6HPO [facility] Last Admin: 01/08/17 06:22 Dose: 5 ml Magnesium Hydroxide (Milk Of Magnesia -) 30 ml PO HS PRN PRN Reason: CONSTIPATION Methylprednisolone Sodium Succinate (Solu-Medrol -) 40 mg IVPB Q8H-IV [facility] Last Admin: 01/08/17 09:36 Dose: 40 mg Metoprolol Tartrate (Lopressor -) 12.5 mg PO TID [facility] Last Admin: 01/08/17 06:22 Dose: 12.5 mg Multivitamins/Minerals/Vitamin C (Tab-A-Vit -) 1 tab PO DAILY [facility] Last Admin: 01/08/17 09:36 Dose: 1 tab Nystatin (Mycostatin Cream -) 1 applic TP BID [facility] Last Admin: 01/08/17 09:37 Dose: 1 applic Nystatin (Nystop Powder -) 1 applic TP DAILY [facility] Last Admin: 01/08/17 09:36 Dose: 1 applic Pantoprazole Sodium (Protonix -) 40 mg PO DAILY [facility] Last Admin: 01/08/17 09:36 Dose: 40 mg Polyethylene Glycol (Miralax (For Daily Use) -) 17 gm PO DAILY [facility] Last Admin: 01/08/17 09:38 Dose: 17 grams Silver Sulfadiazine (Silvadene -) 1 applic TP BID [facility] Last Admin: 01/08/17 09:36 Dose: 1 applic Simethicone (Mylicon -) 80 mg PO Q4H PRN PRN Reason: GAS Last Admin: 01/07/17 19:55 Dose: 80 mg Tamsulosin HCl (Flomax -) 0.4 mg PO DAILY@0830 [facility] Last Admin: 01/08/17 09:36 Dose: 0.4 mg Zinc Sulfate (Orazinc -) 220 mg PO DAILY [facility] Last Admin: 01/08/17 09:36 Dose: 220 mg - Objective Vital Signs: Vital Signs Temperature 97.6 F 01/08/17 10:00 Pulse Rate 78 01/08/17 10:00 Respiratory Rate 22 01/08/17 10:00 Blood Pressure 110/67 01/08/17 10:00 O2 Sat by Pulse Oximetry (%) 95 01/08/17 10:00 Constitutional: Yes: Calm, Thin Eyes: Yes: WNL HENT: Yes: WNL Neck: Yes: WNL Cardiovascular: Yes: Pulse Irregular, S1, S2 Respiratory: Yes: Rales (BIBASILAR CRACKLES) Gastrointestinal: Yes: Normal Bowel Sounds, Soft Extremities: Yes: WNL Edema: No Labs: CBC, BMP Problem List - Problems (1) Acute hypoxemic respiratory failure Code(s): J96.01 - ACUTE RESPIRATORY FAILURE WITH HYPOXIA Assessment/Plan Problem List - Problems (1) CKD (chronic kidney disease) Code(s): N18.9 - CHRONIC KIDNEY DISEASE, UNSPECIFIED (2) PAD (peripheral artery disease) Code(s): I73.9 - PERIPHERAL VASCULAR DISEASE, UNSPECIFIED (3) Pneumonia Code(s): J18.9 - PNEUMONIA, UNSPECIFIED ORGANISM Qualifiers: Pneumonia type: due to unspecified organism Laterality: bilateral Lung location: unspecified part of lung Qualified Code(s): J18.9 - Pneumonia, unspecified organism (4) Respiratory distress Code(s): R06.00 - DYSPNEA, UNSPECIFIED (5) Microcytic anemia Code(s): D50.9 - IRON DEFICIENCY ANEMIA, UNSPECIFIED (6) BPH (benign prostatic hyperplasia) Code(s): N40.0 - BENIGN PROSTATIC HYPERPLASIA WITHOUT LOWER URINRY TRACT SYMP (7) CAD (coronary artery disease) Code(s): I25.10 - ATHSCL HEART DISEASE OF [place] CORONARY ARTERY W/O ANG PCTRS Qualifiers: Associated angina: with unspecified angina (8) CHF (congestive heart failure) Code(s): I50.9 - HEART FAILURE, UNSPECIFIED Qualifiers: Congestive heart failure type: systolic Congestive heart failure chronicity: acute on chronic Qualified Code(s): I50.23 - Acute on chronic systolic (congestive) heart failure (9) Diabetes Code(s): E11.9 - TYPE 2 DIABETES MELLITUS WITHOUT COMPLICATIONS Qualifiers: Diabetes mellitus complication status: with other specified complication 10 ACUTE HYPOXEMIC RESPIRATORY FAILURE I1. 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
--- NOTE | 2017-01-08 17:47 | PN ---
Progress Note, Physician Chief Complaint: Cardiology COnsult - Current Medication List Current Medications: Active Medications Acetaminophen (Tylenol -) 650 mg PO Q6H PRN PRN Reason: FEVER OR PAIN Amino Acids (Prosource No Carb Liquid Pkt) 30 ml PO BID@0800,1730 [facility] Last Admin: 01/08/17 17:28 Dose: 30 ml Ascorbic Acid (Vitamin C -) 250 mg PO BID [facility] Last Admin: 01/08/17 09:38 Dose: 250 mg Aspirin (Ecotrin -) 81 mg PO DAILY [facility] Last Admin: 01/08/17 09:36 Dose: 81 mg Bacitracin (Bacitracin -) 1 applic TP DAILY [facility] Last Admin: 01/08/17 10:00 Dose: 1 applic Collagenase (Santyl -) 1 applic TP DAILY [facility] Last Admin: 01/08/17 09:36 Dose: 1 applic Furosemide (Lasix Injection -) 40 mg IVPB DAILY [facility] Last Admin: 01/08/17 09:40 Dose: 40 mg Guaifenesin (Robitussin Dm -) 10 ml PO Q6H PRN PRN Reason: COUGH Heparin Sodium (Porcine) (Heparin -) 5,000 unit SQ BID [facility] Last Admin: 01/08/17 09:38 Dose: 5,000 unit Insulin Aspart (Novolog Vial Sliding Scale -) 1 vial SQ ACHS [facility] PRN Reason: Protocol Last Admin: 01/08/17 17:15 Dose: Not Given Insulin Detemir (Levemir Vial) 15 units SQ HS [facility] Last Admin: 01/07/17 22:46 Dose: 15 units Insulin Detemir (Levemir Vial) 35 units SQ AM [facility] Last Admin: 01/08/17 06:22 Dose: 35 units Lidocaine/Aluminum/Magnesium/Simeth (Magic Mouthwash *Sjr Formula* -) 5 ml MM Q6HPO [facility] Last Admin: 01/08/17 17:28 Dose: 5 ml Magnesium Hydroxide (Milk Of Magnesia -) 30 ml PO HS PRN PRN Reason: CONSTIPATION Methylprednisolone Sodium Succinate (Solu-Medrol -) 40 mg IVPB Q8H-IV [facility] Last Admin: 01/08/17 17:28 Dose: 40 mg Metoprolol Tartrate (Lopressor -) 12.5 mg PO TID [facility] Last Admin: 01/08/17 14:23 Dose: 12.5 mg Multivitamins/Minerals/Vitamin C (Tab-A-Vit -) 1 tab PO DAILY [facility] Last Admin: 01/08/17 09:36 Dose: 1 tab Nystatin (Mycostatin Cream -) 1 applic TP BID [facility] Last Admin: 01/08/17 09:37 Dose: 1 applic Nystatin (Nystop Powder -) 1 applic TP DAILY [facility] Last Admin: 01/08/17 09:36 Dose: 1 applic Pantoprazole Sodium (Protonix -) 40 mg PO DAILY [facility] Last Admin: 01/08/17 09:36 Dose: 40 mg Polyethylene Glycol (Miralax (For Daily Use) -) 17 gm PO DAILY [facility] Last Admin: 01/08/17 09:38 Dose: 17 grams Silver Sulfadiazine (Silvadene -) 1 applic TP BID [facility] Last Admin: 01/08/17 09:36 Dose: 1 applic Simethicone (Mylicon -) 80 mg PO Q4H PRN PRN Reason: GAS Last Admin: 01/07/17 19:55 Dose: 80 mg Tamsulosin HCl (Flomax -) 0.4 mg PO DAILY@0830 [facility] Last Admin: 01/08/17 09:36 Dose: 0.4 mg Zinc Sulfate (Orazinc -) 220 mg PO DAILY [facility] Last Admin: 01/08/17 09:36 Dose: 220 mg - Objective Vital Signs: Vital Signs Temperature 97.9 F 01/08/17 14:36 Pulse Rate 72 01/08/17 14:36 Respiratory Rate 20 01/08/17 14:36 Blood Pressure 146/61 01/08/17 14:36 O2 Sat by Pulse Oximetry (%) 95 01/08/17 10:00 Constitutional: Yes: Calm, Moderate Distress, Thin Eyes: Yes: Conjunctiva Clear, EOM Intact HENT: Yes: Atraumatic, Normocephalic Cardiovascular: Yes: Regular Rate and Rhythm, Other (there is no JVD) Respiratory: Yes: On Venti-Mask, Rhonchi, SOB Gastrointestinal: Yes: Normal Bowel Sounds Edema: No Peripheral Pulses WNL: No Labs: CBC, BMP 01/07/17 05:35 01/07/17 05:35 INR, PTT INR 1.19 (0.82-1.09) H 01/02/17 20:51 - ....Imaging Chest X-ray: Report Reviewed Problem List - Problems (1) Afib Assessment/Plan: Rapid Afib converted to NSR. As his Afib was brief and given risk of bleeding due to debilitation, systemic AC can be avoided. Continue metoprolol 12.5mg TID Will see as needed. Code(s): I48.91 - UNSPECIFIED ATRIAL FIBRILLATION Qualifiers: Atrial fibrillation type: persistent Qualified Code(s): I48.1 - Persistent atrial fibrillation (2) Acute hypoxemic respiratory failure Code(s): J96.01 - ACUTE RESPIRATORY FAILURE WITH HYPOXIA (3) CAD (coronary artery disease) Code(s): I25.10 - ATHSCL HEART DISEASE OF [place] CORONARY ARTERY W/O ANG PCTRS Qualifiers: Associated angina: without angina
[2017-01-08] MEDS: ACETAMINOPHEN 325 MG TABLET (FP) PO PRN (22:04)
--- NOTE | 2017-01-08 22:44 | PN ---
Progress Note, Physician Chief Complaint: PNEUMOTHORAX History of Present Illness: COMFORTABLE IN BED, ON PARTIAL REBREATHER, MILD DYSPNEA. CXR SHOWED TINY RIGHT PNEUMOTHORAX. - Current Medication List Current Medications: Active Medications Acetaminophen (Tylenol -) 650 mg PO Q6H PRN PRN Reason: FEVER OR PAIN Amino Acids (Prosource No Carb Liquid Pkt) 30 ml PO BID@0800,1730 [facility] Last Admin: 01/08/17 17:28 Dose: 30 ml Ascorbic Acid (Vitamin C -) 250 mg PO BID [facility] Last Admin: 01/08/17 21:49 Dose: 250 mg Aspirin (Ecotrin -) 81 mg PO DAILY [facility] Last Admin: 01/08/17 09:36 Dose: 81 mg Bacitracin (Bacitracin -) 1 applic TP DAILY [facility] Last Admin: 01/08/17 10:00 Dose: 1 applic Collagenase (Santyl -) 1 applic TP DAILY [facility] Last Admin: 01/08/17 09:36 Dose: 1 applic Furosemide (Lasix Injection -) 40 mg IVPB DAILY [facility] Last Admin: 01/08/17 09:40 Dose: 40 mg Guaifenesin (Robitussin Dm -) 10 ml PO Q6H PRN PRN Reason: COUGH Heparin Sodium (Porcine) (Heparin -) 5,000 unit SQ BID [facility] Last Admin: 01/08/17 21:47 Dose: 5,000 unit Insulin Aspart (Novolog Vial Sliding Scale -) 1 vial SQ ACHS [facility] PRN Reason: Protocol Last Admin: 01/08/17 21:47 Dose: 4 units Insulin Detemir (Levemir Vial) 15 units SQ HS [facility] Last Admin: 01/08/17 21:47 Dose: 15 units Insulin Detemir (Levemir Vial) 35 units SQ AM [facility] Last Admin: 01/08/17 06:22 Dose: 35 units Lidocaine/Aluminum/Magnesium/Simeth (Magic Mouthwash *Sjr Formula* -) 5 ml MM Q6HPO [facility] Last Admin: 01/08/17 17:28 Dose: 5 ml Magnesium Hydroxide (Milk Of Magnesia -) 30 ml PO HS PRN PRN Reason: CONSTIPATION Methylprednisolone Sodium Succinate (Solu-Medrol -) 40 mg IVPB Q8H-IV [facility] Last Admin: 01/08/17 17:28 Dose: 40 mg Metoprolol Tartrate (Lopressor -) 12.5 mg PO TID [facility] Last Admin: 01/08/17 21:48 Dose: 12.5 mg Multivitamins/Minerals/Vitamin C (Tab-A-Vit -) 1 tab PO DAILY [facility] Last Admin: 01/08/17 09:36 Dose: 1 tab Nystatin (Mycostatin Cream -) 1 applic TP BID [facility] Last Admin: 01/08/17 21:48 Dose: 1 applic Nystatin (Nystop Powder -) 1 applic TP DAILY [facility] Last Admin: 01/08/17 09:36 Dose: 1 applic Pantoprazole Sodium (Protonix -) 40 mg PO DAILY [facility] Last Admin: 01/08/17 09:36 Dose: 40 mg Polyethylene Glycol (Miralax (For Daily Use) -) 17 gm PO DAILY [facility] Last Admin: 01/08/17 09:38 Dose: 17 grams Silver Sulfadiazine (Silvadene -) 1 applic TP BID [facility] Last Admin: 01/08/17 21:48 Dose: 1 applic Simethicone (Mylicon -) 80 mg PO Q4H PRN PRN Reason: GAS Last Admin: 01/07/17 19:55 Dose: 80 mg Tamsulosin HCl (Flomax -) 0.4 mg PO DAILY@0830 [facility] Last Admin: 01/08/17 09:36 Dose: 0.4 mg Zinc Sulfate (Orazinc -) 220 mg PO DAILY [facility] Last Admin: 01/08/17 09:36 Dose: 220 mg - Objective Vital Signs: Vital Signs Temperature 97.2 F L 01/08/17 20:25 Pulse Rate 72 01/08/17 20:25 Respiratory Rate 20 01/08/17 20:25 Blood Pressure 123/61 01/08/17 20:25 O2 Sat by Pulse Oximetry (%) 96 01/08/17 20:25 Constitutional: Yes: Well Nourished, No Distress, Calm Cardiovascular: Yes: Regular Rate and Rhythm Respiratory: Yes: Regular Gastrointestinal: Yes: Normal Bowel Sounds Labs: CBC, BMP 01/07/17 05:35 01/07/17 05:35 INR, PTT INR 1.19 (0.82-1.09) H 01/02/17 20:51 Problem List - Problems (1) Afib Assessment/Plan: NSR NOW ON HEPARIN SQ BID ON METOPROLOL Code(s): I48.91 - UNSPECIFIED ATRIAL FIBRILLATION Qualifiers: Atrial fibrillation type: persistent Qualified Code(s): I48.1 - Persistent atrial fibrillation (2) CKD (chronic kidney disease) Code(s): N18.9 - CHRONIC KIDNEY DISEASE, UNSPECIFIED Qualifiers: Chronic kidney disease stage: stage 3 (moderate) Qualified Code(s): N18.3 - Chronic kidney disease, stage 3 (moderate) (3) COPD (chronic obstructive pulmonary disease) Code(s): J44.9 - CHRONIC OBSTRUCTIVE PULMONARY DISEASE, UNSPECIFIED (4) Pneumothorax Assessment/Plan: TINY ON RIGHT UL, MILD DYSPNEA, ON PARTIAL REBREATHER Code(s): J93.9 - PNEUMOTHORAX, UNSPECIFIED (5) Diabetes Code(s): E11.9 - TYPE 2 DIABETES MELLITUS WITHOUT COMPLICATIONS Qualifiers: Diabetes mellitus complication status: with other specified complication Assessment/Plan MAINTAIN O2 >90 VSS OTHERWISE STABLE
[2017-01-09] MEDS: MAG HYDROX/ALH/SMC/DPHA/LIDO 240 ML MOUTHWASH MM SCH ×4 (00:05→17:24)
[2017-01-09] MEDS: methylPREDNISolone NA SUCC 40 MG/1 ML VIAL IVPB SCH ×3 (02:10→17:24)
[2017-01-09] MEDS: METOPROLOL TARTRATE 25 MG TABLET (FP) PO SCH ×3 (06:16→21:43)
[2017-01-09] MEDS: INSULIN SLIDING SCALE (NOVOLOG) 1 VIAL SQ SCH ×4 (06:16→21:50)
[2017-01-09] MEDS: INSULIN DETEMIR 100 UNITS/ML MDV SQ SCH ×2 (06:17→21:50)
[2017-01-09] MEDS ORDERED: PT OWN MED DRAWER 7, Y5N ONE (08:38)
[2017-01-09] MEDS: AMINO ACIDS/PROTEIN HYDROLYS 30 ML LIQUID.PKT PO SCH ×2 (09:18→17:25)
[2017-01-09] MEDS: BACITRACIN 15 GM TUBE TOPICAL OINTMENT TP SCH (09:18)
[2017-01-09] MEDS: ASPIRIN COATED 81 MG TABLET.EC PO SCH (09:18)
[2017-01-09] MEDS: TAMSULOSIN HCL 0.4 MG CAP.ER.24H (FP) PO SCH (09:18)
[2017-01-09] MEDS: ASCORBIC ACID 250 MG TABLET (FP) PO SCH ×2 (09:19→21:43)
[2017-01-09] MEDS: FUROSEMIDE 40 MG/4 ML INJECTABLE VIAL IVPB SCH (09:19)
[2017-01-09] MEDS: COLLAGENASE CLOSTRIDIUM HIST. 30 GRAMS TUBE TP SCH (09:19)
[2017-01-09] MEDS: MULTIVITAMINS (DAILY MVI) TABLET (FP) PO SCH (09:19)
[2017-01-09] MEDS: SILVER SULFADIAZINE 1% TOP CREAM 50 GM JAR TP SCH ×2 (09:19→21:53)
[2017-01-09] MEDS: PANTOPRAZOLE 40 MG TABLET (FP) PO SCH (09:20)
[2017-01-09] MEDS: NYSTATIN 100,000 UNIT/GM TOPICAL CREAM 15 GM TUBE TP SCH ×2 (09:20→21:51)
[2017-01-09] MEDS: HEPARIN NA (PORCINE) 5,000 UNITS/ML 1ML VIAL SQ SCH ×2 (09:56→21:44)
[2017-01-09] MEDS: ZINC SULFATE 220 MG CAPSULE (FP) PO SCH (10:00)
--- NOTE | 2017-01-09 12:29 | PN ---
Progress Note, Physician History of Present Illness: pulmonary no change,very weak, ,dyspneic on 100% nrm,poor po intake - Current Medication List Current Medications: Active Medications Acetaminophen (Tylenol -) 650 mg PO Q6H PRN PRN Reason: FEVER OR PAIN Last Admin: 01/08/17 22:04 Dose: 650 mg Amino Acids (Prosource No Carb Liquid Pkt) 30 ml PO BID@0800,1730 [facility] Last Admin: 01/09/17 09:18 Dose: 30 ml Ascorbic Acid (Vitamin C -) 250 mg PO BID [facility] Last Admin: 01/09/17 09:19 Dose: 250 mg Aspirin (Ecotrin -) 81 mg PO DAILY [facility] Last Admin: 01/09/17 09:18 Dose: 81 mg Bacitracin (Bacitracin -) 1 applic TP DAILY [facility] Last Admin: 01/09/17 09:18 Dose: 1 applic Collagenase (Santyl -) 1 applic TP DAILY [facility] Last Admin: 01/09/17 09:19 Dose: 1 applic Furosemide (Lasix Injection -) 40 mg IVPB DAILY [facility] Last Admin: 01/09/17 09:19 Dose: 40 mg Guaifenesin (Robitussin Dm -) 10 ml PO Q6H PRN PRN Reason: COUGH Heparin Sodium (Porcine) (Heparin -) 5,000 unit SQ BID [facility] Last Admin: 01/09/17 09:56 Dose: 5,000 unit Insulin Aspart (Novolog Vial Sliding Scale -) 1 vial SQ ACHS [facility] PRN Reason: Protocol Last Admin: 01/09/17 06:16 Dose: Not Given Insulin Detemir (Levemir Vial) 15 units SQ HS [facility] Last Admin: 01/08/17 21:47 Dose: 15 units Insulin Detemir (Levemir Vial) 35 units SQ AM [facility] Last Admin: 01/09/17 06:17 Dose: Not Given Lidocaine/Aluminum/Magnesium/Simeth (Magic Mouthwash *Sjr Formula* -) 5 ml MM Q6HPO [facility] Last Admin: 01/09/17 06:17 Dose: 5 ml Magnesium Hydroxide (Milk Of Magnesia -) 30 ml PO HS PRN PRN Reason: CONSTIPATION Methylprednisolone Sodium Succinate (Solu-Medrol -) 40 mg IVPB Q8H-IV [facility] Last Admin: 01/09/17 09:19 Dose: 40 mg Metoprolol Tartrate (Lopressor -) 12.5 mg PO TID [facility] Last Admin: 01/09/17 06:16 Dose: 12.5 mg Multivitamins/Minerals/Vitamin C (Tab-A-Vit -) 1 tab PO DAILY [facility] Last Admin: 01/09/17 09:19 Dose: 1 tab Nystatin (Mycostatin Cream -) 1 applic TP BID [facility] Last Admin: 01/09/17 09:20 Dose: 1 applic Nystatin (Nystop Powder -) 1 applic TP DAILY [facility] Last Admin: 01/08/17 09:36 Dose: 1 applic Pantoprazole Sodium (Protonix -) 40 mg PO DAILY [facility] Last Admin: 01/09/17 09:20 Dose: 40 mg Polyethylene Glycol (Miralax (For Daily Use) -) 17 gm PO DAILY [facility] Last Admin: 01/08/17 09:38 Dose: 17 grams Silver Sulfadiazine (Silvadene -) 1 applic TP BID [facility] Last Admin: 01/09/17 09:19 Dose: 1 applic Simethicone (Mylicon -) 80 mg PO Q4H PRN PRN Reason: GAS Last Admin: 01/07/17 19:55 Dose: 80 mg Tamsulosin HCl (Flomax -) 0.4 mg PO DAILY@0830 [facility] Last Admin: 01/09/17 09:18 Dose: 0.4 mg Zinc Sulfate (Orazinc -) 220 mg PO DAILY [facility] Last Admin: 01/08/17 09:36 Dose: 220 mg - Objective Vital Signs: Vital Signs Temperature 98 F 01/09/17 10:00 Pulse Rate 57 L 01/09/17 10:31 Respiratory Rate 22 01/09/17 10:00 Blood Pressure 129/66 01/09/17 10:00 O2 Sat by Pulse Oximetry (%) 97 01/09/17 10:31 Constitutional: Yes: Calm, Thin Eyes: Yes: WNL HENT: Yes: WNL Neck: Yes: WNL Cardiovascular: Yes: Regular Rate and Rhythm, S1, S2 Respiratory: Yes: Rales (bibasilar crackles) Gastrointestinal: Yes: Normal Bowel Sounds, Soft Extremities: Yes: WNL Edema: No Labs: CBC, BMP 01/07/17 05:35 01/07/17 05:35 INR, PTT INR 1.19 (0.82-1.09) H 01/02/17 20:51 - ....Imaging Chest X-ray: Report Reviewed, Image Reviewed (-ptx) Problem List - Problems (1) Acute hypoxemic respiratory failure Code(s): J96.01 - ACUTE RESPIRATORY FAILURE WITH HYPOXIA Assessment/Plan Problem List - Problems (1) CKD (chronic kidney disease) Code(s): N18.9 - CHRONIC KIDNEY DISEASE, UNSPECIFIED (2) PAD (peripheral artery disease) Code(s): I73.9 - PERIPHERAL VASCULAR DISEASE, UNSPECIFIED (3) Pneumonia Code(s): J18.9 - PNEUMONIA, UNSPECIFIED ORGANISM Qualifiers: Pneumonia type: due to unspecified organism Laterality: bilateral Lung location: unspecified part of lung Qualified Code(s): J18.9 - Pneumonia, unspecified organism (4) Respiratory distress Code(s): R06.00 - DYSPNEA, UNSPECIFIED (5) Microcytic anemia Code(s): D50.9 - IRON DEFICIENCY ANEMIA, UNSPECIFIED (6) BPH (benign prostatic hyperplasia) Code(s): N40.0 - BENIGN PROSTATIC HYPERPLASIA WITHOUT LOWER URINRY TRACT SYMP (7) CAD (coronary artery disease) Code(s): I25.10 - ATHSCL HEART DISEASE OF [place] CORONARY ARTERY W/O ANG PCTRS Qualifiers: Associated angina: with unspecified angina (8) CHF (congestive heart failure) Code(s): I50.9 - HEART FAILURE, UNSPECIFIED Qualifiers: Congestive heart failure type: systolic Congestive heart failure chronicity: acute on chronic Qualified Code(s): I50.23 - Acute on chronic systolic (congestive) heart failure (9) Diabetes Code(s): E11.9 - TYPE 2 DIABETES MELLITUS WITHOUT COMPLICATIONS Qualifiers: Diabetes mellitus complication status: with other specified complication 10 ACUTE HYPOXEMIC RESPIRATORY FAILURE I1. 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
[2017-01-09] MEDS: NYSTATIN POWDER 100,000 UNITS/GM - 15 GM TOPICAL POWDER TP SCH (14:22)
[2017-01-09] MEDS: POLYETHYLENE GLYCOL 3350 119 GM BTL PO SCH (14:24)
--- NOTE | 2017-01-09 18:59 | PN ---
Progress Note, Physician Chief Complaint: AWAKE ALERT BEDSIDE 02 SUPPORT 100% PATIENT IS FULL CODE - Current Medication List Current Medications: Active Medications Acetaminophen (Tylenol -) 650 mg PO Q6H PRN PRN Reason: FEVER OR PAIN Last Admin: 01/08/17 22:04 Dose: 650 mg Amino Acids (Prosource No Carb Liquid Pkt) 30 ml PO BID@0800,1730 [facility] Last Admin: 01/09/17 17:25 Dose: 30 ml Ascorbic Acid (Vitamin C -) 250 mg PO BID [facility] Last Admin: 01/09/17 09:19 Dose: 250 mg Aspirin (Ecotrin -) 81 mg PO DAILY [facility] Last Admin: 01/09/17 09:18 Dose: 81 mg Bacitracin (Bacitracin -) 1 applic TP DAILY [facility] Last Admin: 01/09/17 09:18 Dose: 1 applic Collagenase (Santyl -) 1 applic TP DAILY [facility] Last Admin: 01/09/17 09:19 Dose: 1 applic Furosemide (Lasix Injection -) 40 mg IVPB DAILY [facility] Last Admin: 01/09/17 09:19 Dose: 40 mg Guaifenesin (Robitussin Dm -) 10 ml PO Q6H PRN PRN Reason: COUGH Last Admin: 01/09/17 17:26 Dose: 10 ml Heparin Sodium (Porcine) (Heparin -) 5,000 unit SQ BID [facility] Last Admin: 01/09/17 09:56 Dose: 5,000 unit Insulin Aspart (Novolog Vial Sliding Scale -) 1 vial SQ ACHS [facility] PRN Reason: Protocol Last Admin: 01/09/17 12:30 Dose: Not Given Insulin Detemir (Levemir Vial) 15 units SQ HS [facility] Last Admin: 01/08/17 21:47 Dose: 15 units Insulin Detemir (Levemir Vial) 35 units SQ AM [facility] Last Admin: 01/09/17 06:17 Dose: Not Given Lidocaine/Aluminum/Magnesium/Simeth (Magic Mouthwash *Sjr Formula* -) 5 ml MM Q6HPO [facility] Last Admin: 01/09/17 17:24 Dose: 5 ml Magnesium Hydroxide (Milk Of Magnesia -) 30 ml PO HS PRN PRN Reason: CONSTIPATION Methylprednisolone Sodium Succinate (Solu-Medrol -) 30 mg IVPB Q8H-IV [facility] Last Admin: 01/09/17 17:24 Dose: 30 mg Metoprolol Tartrate (Lopressor -) 12.5 mg PO TID [facility] Last Admin: 01/09/17 14:22 Dose: 12.5 mg Multivitamins/Minerals/Vitamin C (Tab-A-Vit -) 1 tab PO DAILY [facility] Last Admin: 01/09/17 09:19 Dose: 1 tab Nystatin (Mycostatin Cream -) 1 applic TP BID [facility] Last Admin: 01/09/17 09:20 Dose: 1 applic Nystatin (Nystop Powder -) 1 applic TP DAILY [facility] Last Admin: 01/09/17 14:22 Dose: 1 applic Pantoprazole Sodium (Protonix -) 40 mg PO DAILY [facility] Last Admin: 01/09/17 09:20 Dose: 40 mg Polyethylene Glycol (Miralax (For Daily Use) -) 17 gm PO DAILY [facility] Last Admin: 01/09/17 14:24 Dose: 17 grams Silver Sulfadiazine (Silvadene -) 1 applic TP BID [facility] Last Admin: 01/09/17 09:19 Dose: 1 applic Simethicone (Mylicon -) 80 mg PO Q4H PRN PRN Reason: GAS Last Admin: 01/07/17 19:55 Dose: 80 mg Tamsulosin HCl (Flomax -) 0.4 mg PO DAILY@0830 [facility] Last Admin: 01/09/17 09:18 Dose: 0.4 mg Zinc Sulfate (Orazinc -) 220 mg PO DAILY [facility] Last Admin: 01/09/17 10:00 Dose: 220 mg - Objective Vital Signs: Vital Signs Temperature 98.2 F 01/09/17 14:49 Pulse Rate 70 01/09/17 14:49 Respiratory Rate 22 01/09/17 14:49 Blood Pressure 116/57 01/09/17 14:49 O2 Sat by Pulse Oximetry (%) 97 01/09/17 10:31 Constitutional: Yes: Severe Distress Eyes: Yes: WNL HENT: Yes: WNL Neck: Yes: WNL Cardiovascular: Yes: WNL, Pulse Irregular Respiratory: Yes: On Venti-Mask Gastrointestinal: Yes: WNL Extremities: Yes: WNL Edema: No Peripheral Pulses WNL: Yes Integumentary: Yes: WNL Wound/Incision: Yes: Clean/Dry Neurological: Yes: Pre-Existing Deficit ...Motor Strength: LLE, RLE Psychiatric: Yes: Other Labs: CBC, BMP 01/07/17 05:35 01/07/17 05:35 INR, PTT INR 1.19 (0.82-1.09) H 01/02/17 20:51 Problem List - Problems (1) Pneumonia Code(s): J18.9 - PNEUMONIA, UNSPECIFIED ORGANISM Qualifiers: Pneumonia type: due to unspecified organism Laterality: bilateral Lung location: unspecified part of lung Qualified Code(s): J18.9 - Pneumonia, unspecified organism (2) Microcytic anemia Code(s): D50.9 - IRON DEFICIENCY ANEMIA, UNSPECIFIED (3) UTI (urinary tract infection) Code(s): N39.0 - URINARY TRACT INFECTION, SITE NOT SPECIFIED Qualifiers: Urinary tract infection type: acute cystitis (4) BPH (benign prostatic hyperplasia) Code(s): N40.0 - BENIGN PROSTATIC HYPERPLASIA WITHOUT LOWER URINRY TRACT SYMP (5) CAD (coronary artery disease) Code(s): I25.10 - ATHSCL HEART DISEASE OF [place] CORONARY ARTERY W/O ANG PCTRS Qualifiers: Associated angina: without angina (6) CHF (congestive heart failure) Code(s): I50.9 - HEART FAILURE, UNSPECIFIED Qualifiers: Congestive heart failure type: systolic Congestive heart failure chronicity: acute on chronic Qualified Code(s): I50.23 - Acute on chronic systolic (congestive) heart failure (7) Diabetes Code(s): E11.9 - TYPE 2 DIABETES MELLITUS WITHOUT COMPLICATIONS Qualifiers: Diabetes mellitus complication status: with other specified complication (8) Respiratory distress Code(s): R06.00 - DYSPNEA, UNSPECIFIED (9) CKD (chronic kidney disease) Code(s): N18.9 - CHRONIC KIDNEY DISEASE, UNSPECIFIED Qualifiers: Chronic kidney disease stage: stage 3 (moderate) Qualified Code(s): N18.3 - Chronic kidney disease, stage 3 (moderate) Assessment/Plan FULL CODE DISCUSSED WITH WOULD LIKE TO GO TO [facility] POOR OVERALL PROGNOSIS IS AWARE CONTINUE CURRENT THERAPY
[2017-01-10] MEDS: MAG HYDROX/ALH/SMC/DPHA/LIDO 240 ML MOUTHWASH MM SCH ×4 (00:17→18:36)
[2017-01-10] MEDS: methylPREDNISolone NA SUCC 40 MG/1 ML VIAL IVPB SCH (01:21)
[2017-01-10] MEDS: METOPROLOL TARTRATE 25 MG TABLET (FP) PO SCH ×3 (06:12→22:01)
[2017-01-10] MEDS: INSULIN DETEMIR 100 UNITS/ML MDV SQ SCH ×2 (06:43→22:08)
[2017-01-10] MEDS: INSULIN SLIDING SCALE (NOVOLOG) 1 VIAL SQ SCH ×4 (06:44→22:07)
[2017-01-10] MEDS: TAMSULOSIN HCL 0.4 MG CAP.ER.24H (FP) PO SCH (10:48)
[2017-01-10] MEDS: FUROSEMIDE 40 MG TABLET (FP) PO SCH (10:48)
[2017-01-10] MEDS: predniSONE 20 MG TABLET (UD) PO SCH (10:48)
[2017-01-10] MEDS: NYSTATIN 100,000 UNIT/GM TOPICAL CREAM 15 GM TUBE TP SCH ×2 (10:49→22:03)
[2017-01-10] MEDS: MULTIVITAMINS (DAILY MVI) TABLET (FP) PO SCH (10:49)
[2017-01-10] MEDS: POLYETHYLENE GLYCOL 3350 119 GM BTL PO SCH ×2 (10:49→11:00)
[2017-01-10] MEDS: AMINO ACIDS/PROTEIN HYDROLYS 30 ML LIQUID.PKT PO SCH ×2 (10:49→16:33)
[2017-01-10] MEDS: ASPIRIN COATED 81 MG TABLET.EC PO SCH (10:49)
[2017-01-10] MEDS: HEPARIN NA (PORCINE) 5,000 UNITS/ML 1ML VIAL SQ SCH ×2 (10:49→21:58)
[2017-01-10] MEDS: ZINC SULFATE 220 MG CAPSULE (FP) PO SCH (10:49)
[2017-01-10] MEDS: PANTOPRAZOLE 40 MG TABLET (FP) PO SCH (10:49)
[2017-01-10] MEDS: ASCORBIC ACID 250 MG TABLET (FP) PO SCH (10:50)
[2017-01-10] MEDS: COLLAGENASE CLOSTRIDIUM HIST. 30 GRAMS TUBE TP SCH (10:50)
[2017-01-10] MEDS: SILVER SULFADIAZINE 1% TOP CREAM 50 GM JAR TP SCH ×2 (10:50→22:07)
[2017-01-10] MEDS: NYSTATIN POWDER 100,000 UNITS/GM - 15 GM TOPICAL POWDER TP SCH (10:50)
[2017-01-10] MEDS: BACITRACIN 15 GM TUBE TOPICAL OINTMENT TP SCH (10:51)
[2017-01-10] MEDS ORDERED: SODIUM CHLORIDE NASAL SPRAY 44 ML BOTTLE NS PRN (12:02)
--- NOTE | 2017-01-10 12:02 | PN ---
Progress Note (short form) - Note Progress Note: PULMONARY Saturating high 80s on NRB. No fevers recorded. Last Vital Signs Temp Pulse Resp BP Pulse Ox 97 F L 70 21 118/70 96 01/10/17 05:00 01/10/17 05:00 01/10/17 05:00 01/10/17 05:00 01/10/17 00:23 Gen: tachypenic at rest Heart: RRR Lung: bibasilar rales Abd: soft, nontender Ext: no edema CBC, BMP 01/07/17 05:35 01/07/17 05:35 Active Medications Acetaminophen (Tylenol -) 650 mg PO Q6H PRN PRN Reason: FEVER OR PAIN Last Admin: 01/08/17 22:04 Dose: 650 mg Amino Acids (Prosource No Carb Liquid Pkt) 30 ml PO BID@0800,1730 [facility] Last Admin: 01/10/17 10:49 Dose: 30 ml Ascorbic Acid (Vitamin C -) 250 mg PO BID [facility] Last Admin: 01/10/17 10:50 Dose: 250 mg Aspirin (Ecotrin -) 81 mg PO DAILY [facility] Last Admin: 01/10/17 10:49 Dose: 81 mg Bacitracin (Bacitracin -) 1 applic TP DAILY [facility] Last Admin: 01/10/17 10:51 Dose: 1 applic Collagenase (Santyl -) 1 applic TP DAILY [facility] Last Admin: 01/10/17 10:50 Dose: 1 applic Furosemide (Lasix -) 40 mg PO DAILY [facility] Last Admin: 01/10/17 10:48 Dose: 40 mg Guaifenesin (Robitussin Dm -) 10 ml PO Q6H PRN PRN Reason: COUGH Last Admin: 01/09/17 17:26 Dose: 10 ml Heparin Sodium (Porcine) (Heparin -) 5,000 unit SQ BID [facility] Last Admin: 01/10/17 10:49 Dose: Not Given Insulin Aspart (Novolog Vial Sliding Scale -) 1 vial SQ ACHS [facility] PRN Reason: Protocol Last Admin: 01/10/17 06:44 Dose: Not Given Insulin Detemir (Levemir Vial) 15 units SQ HS [facility] Last Admin: 01/09/17 21:50 Dose: 15 units Insulin Detemir (Levemir Vial) 35 units SQ AM [facility] Last Admin: 01/10/17 06:43 Dose: 35 units Lidocaine/Aluminum/Magnesium/Simeth (Magic Mouthwash *Sjr Formula* -) 5 ml MM Q6HPO [facility] Last Admin: 01/10/17 06:13 Dose: 5 ml Magnesium Hydroxide (Milk Of Magnesia -) 30 ml PO HS PRN PRN Reason: CONSTIPATION Metoprolol Tartrate (Lopressor -) 12.5 mg PO TID [facility] Last Admin: 01/10/17 06:12 Dose: 12.5 mg Multivitamins/Minerals/Vitamin C (Tab-A-Vit -) 1 tab PO DAILY [facility] Last Admin: 01/10/17 10:49 Dose: 1 tab Nystatin (Mycostatin Cream -) 1 applic TP BID [facility] Last Admin: 01/10/17 10:49 Dose: 1 applic Nystatin (Nystop Powder -) 1 applic TP DAILY [facility] Last Admin: 01/10/17 10:50 Dose: 1 applic Pantoprazole Sodium (Protonix -) 40 mg PO DAILY [facility] Last Admin: 01/10/17 10:49 Dose: 40 mg Polyethylene Glycol (Miralax (For Daily Use) -) 17 gm PO DAILY [facility] Last Admin: 01/10/17 10:49 Dose: 17 grams Prednisone (Deltasone -) 40 mg PO DAILY [facility] Last Admin: 01/10/17 10:48 Dose: 40 mg Silver Sulfadiazine (Silvadene -) 1 applic TP BID [facility] Last Admin: 01/10/17 10:50 Dose: 1 applic Simethicone (Mylicon -) 80 mg PO Q4H PRN PRN Reason: GAS Last Admin: 01/07/17 19:55 Dose: 80 mg Tamsulosin HCl (Flomax -) 0.4 mg PO DAILY@0830 [facility] Last Admin: 01/10/17 10:48 Dose: 0.4 mg Zinc Sulfate (Orazinc -) 220 mg PO DAILY [facility] Last Admin: 01/10/17 10:49 Dose: 220 mg A/P Acute Hypoxic Respiratory Failure Interstitial Lung Disease Pneumonia Acute on Chronic LV Systolic Heart Failure CAD PAD CKD DM - s/p multiple antibiotic courses - continue steroids - O2 to keep Spo2 >90% - BiPAP as needed - lasix - monitor urine output, creatinine - continue discussions regarding goals of care, advanced directives - poor prognosis
--- NOTE | 2017-01-10 16:59 | PN ---
Progress Note (short form) - Note Progress Note: I SPENT 1 HOUR DISCUSSING WITH THE PATIENT STATUS OF CARE AND MEDICAL PLAN. PATIENT HAS AN OVERALL POOR PROGNOSIS WITH SYSTEMIC DISEASE AFFECTING HIS CARDIAC/PULMONARY/RENAL/MENTAL FUNCTION. HE IS UNABLE TO MAKE DECISIONS AT THIS TIME AND HIS WOULD LIKE HIM TO BE IN-HOSPITAL HOSPICE AND REFUSED SNF REHAB AT [facility]. I AGREE WITH HER THAT THE PATIENT IS TERMINAL AND WOULD BE MORE COMFORTABLE IN A HOSPICE SETTING. PATIENT AND WANT A DNR/DNI ORDER, NO HEROIC MEASURES OF CARE, NO LAB DRAWS. PATIENT REFUSES BIPAP AND INTUBATION AND VENT SUPPORT. MORPHINE IV NEEDED. I WILL CANCEL DISCHARGE ORDER AND TRANSFER TO MED/SURG FLOOR FOR IN-HOSPITAL HOSPICE. REQUESTS TO STAY HER WITH OVERNIGHT. NURSE KALYN WITNESSED CONVERSATION AND SHE ALSO WILL DOCUMENT. Problem List - Problems (1) Pneumonia Code(s): J18.9 - PNEUMONIA, UNSPECIFIED ORGANISM Qualifiers: Pneumonia type: due to unspecified organism Laterality: bilateral Lung location: unspecified part of lung Qualified Code(s): J18.9 - Pneumonia, unspecified organism (2) Microcytic anemia Code(s): D50.9 - IRON DEFICIENCY ANEMIA, UNSPECIFIED (3) UTI (urinary tract infection) Code(s): N39.0 - URINARY TRACT INFECTION, SITE NOT SPECIFIED Qualifiers: Urinary tract infection type: acute cystitis (4) BPH (benign prostatic hyperplasia) Code(s): N40.0 - BENIGN PROSTATIC HYPERPLASIA WITHOUT LOWER URINRY TRACT SYMP (5) CAD (coronary artery disease) Code(s): I25.10 - ATHSCL HEART DISEASE OF [place] CORONARY ARTERY W/O ANG PCTRS Qualifiers: Associated angina: without angina (6) CHF (congestive heart failure) Code(s): I50.9 - HEART FAILURE, UNSPECIFIED Qualifiers: Congestive heart failure type: systolic Congestive heart failure chronicity: acute on chronic Qualified Code(s): I50.23 - Acute on chronic systolic (congestive) heart failure (7) Diabetes Code(s): E11.9 - TYPE 2 DIABETES MELLITUS WITHOUT COMPLICATIONS Qualifiers: Diabetes mellitus complication status: with other specified complication (8) Respiratory distress Code(s): R06.00 - DYSPNEA, UNSPECIFIED (9) CKD (chronic kidney disease) Code(s): N18.9 - CHRONIC KIDNEY DISEASE, UNSPECIFIED Qualifiers: Chronic kidney disease stage: stage 3 (moderate) Qualified Code(s): N18.3 - Chronic kidney disease, stage 3 (moderate)
[2017-01-10] MEDS ORDERED: FENTANYL PATCH WASTE TD PRN (17:00)
[2017-01-10] MEDS ORDERED: fentaNYL 12mcg/hr PATCH.TD72 TD SCH (17:00)
[2017-01-10] MEDS: SCOPOLAMINE HYDROBROMIDE 1 PATCH PATCH.TD72 TD SCH (17:08)
[2017-01-11] MEDS: MAG HYDROX/ALH/SMC/DPHA/LIDO 240 ML MOUTHWASH MM SCH ×4 (00:01→23:53)
[2017-01-11] MEDS: METOPROLOL TARTRATE 25 MG TABLET (FP) PO SCH ×3 (05:52→20:59)
[2017-01-11] MEDS: INSULIN SLIDING SCALE (NOVOLOG) 1 VIAL SQ SCH ×4 (06:05→22:07)
[2017-01-11] MEDS: INSULIN DETEMIR 100 UNITS/ML MDV SQ SCH ×2 (06:05→22:06)
[2017-01-11] MEDS: AMINO ACIDS/PROTEIN HYDROLYS 30 ML LIQUID.PKT PO SCH ×2 (08:04→18:29)
--- NOTE | 2017-01-11 09:01 | PN ---
Progress Note (short form) - Note Progress Note: IN BED, AWAKE ALERT 02 VENT 90% POOR APPETITE IN HOSPICE ROOM 426 BEDSIDE I WILL SIGN OFF TO HOSPITALIST TEAM FOR HOSPICE CARE JACQUI FROM PALLIATIVE TEAM AWARE OF STATUS Problem List - Problems (1) Pneumonia Code(s): J18.9 - PNEUMONIA, UNSPECIFIED ORGANISM Qualifiers: Pneumonia type: due to unspecified organism Laterality: bilateral Lung location: unspecified part of lung Qualified Code(s): J18.9 - Pneumonia, unspecified organism (2) Microcytic anemia Code(s): D50.9 - IRON DEFICIENCY ANEMIA, UNSPECIFIED (3) UTI (urinary tract infection) Code(s): N39.0 - URINARY TRACT INFECTION, SITE NOT SPECIFIED Qualifiers: Urinary tract infection type: acute cystitis (4) BPH (benign prostatic hyperplasia) Code(s): N40.0 - BENIGN PROSTATIC HYPERPLASIA WITHOUT LOWER URINRY TRACT SYMP (5) CAD (coronary artery disease) Code(s): I25.10 - ATHSCL HEART DISEASE OF [place] CORONARY ARTERY W/O ANG PCTRS Qualifiers: Associated angina: without angina (6) CHF (congestive heart failure) Code(s): I50.9 - HEART FAILURE, UNSPECIFIED Qualifiers: Congestive heart failure type: systolic Congestive heart failure chronicity: acute on chronic Qualified Code(s): I50.23 - Acute on chronic systolic (congestive) heart failure (7) Diabetes Code(s): E11.9 - TYPE 2 DIABETES MELLITUS WITHOUT COMPLICATIONS Qualifiers: Diabetes mellitus complication status: with other specified complication (8) Respiratory distress Code(s): R06.00 - DYSPNEA, UNSPECIFIED (9) CKD (chronic kidney disease) Code(s): N18.9 - CHRONIC KIDNEY DISEASE, UNSPECIFIED Qualifiers: Chronic kidney disease stage: stage 3 (moderate) Qualified Code(s): N18.3 - Chronic kidney disease, stage 3 (moderate)
[2017-01-11] MEDS: TAMSULOSIN HCL 0.4 MG CAP.ER.24H (FP) PO SCH (10:22)
--- NOTE | 2017-01-11 11:51 | PN ---
Progress Note, Physician History of Present Illness: PULMONARY WEAK,ON 100%NRM O2 SAT 97% - Current Medication List Current Medications: Active Medications Acetaminophen (Tylenol -) 650 mg PO Q6H PRN PRN Reason: FEVER OR PAIN Last Admin: 01/08/17 22:04 Dose: 650 mg Amino Acids (Prosource No Carb Liquid Pkt) 30 ml PO BID@0800,1730 [facility] Last Admin: 01/11/17 08:04 Dose: 30 ml Aspirin (Ecotrin -) 81 mg PO DAILY [facility] Last Admin: 01/10/17 10:49 Dose: 81 mg Bacitracin (Bacitracin -) 1 applic TP DAILY [facility] Last Admin: 01/10/17 10:51 Dose: 1 applic Collagenase (Santyl -) 1 applic TP DAILY [facility] Last Admin: 01/10/17 10:50 Dose: 1 applic Furosemide (Lasix -) 40 mg PO DAILY [facility] Last Admin: 01/10/17 10:48 Dose: 40 mg Guaifenesin (Robitussin Dm -) 10 ml PO Q6H PRN PRN Reason: COUGH Last Admin: 01/09/17 17:26 Dose: 10 ml Heparin Sodium (Porcine) (Heparin -) 5,000 unit SQ BID [facility] Last Admin: 01/10/17 21:58 Dose: Not Given Insulin Aspart (Novolog Vial Sliding Scale -) 1 vial SQ ACHS [facility] PRN Reason: Protocol Last Admin: 01/11/17 06:05 Dose: Not Given Insulin Detemir (Levemir Vial) 15 units SQ HS [facility] Last Admin: 01/10/17 22:08 Dose: Not Given Insulin Detemir (Levemir Vial) 35 units SQ AM [facility] Last Admin: 01/11/17 06:05 Dose: Not Given Lidocaine/Aluminum/Magnesium/Simeth (Magic Mouthwash *Sjr Formula* -) 5 ml MM Q6HPO [facility] Last Admin: 01/11/17 05:53 Dose: 5 ml Magnesium Hydroxide (Milk Of Magnesia -) 30 ml PO HS PRN PRN Reason: CONSTIPATION Metoprolol Tartrate (Lopressor -) 12.5 mg PO TID [facility] Last Admin: 01/11/17 05:52 Dose: 12.5 mg Nystatin (Mycostatin Cream -) 1 applic TP BID [facility] Last Admin: 01/10/17 22:03 Dose: 1 applic Nystatin (Nystop Powder -) 1 applic TP DAILY [facility] Last Admin: 01/10/17 10:50 Dose: 1 applic Pantoprazole Sodium (Protonix -) 40 mg PO DAILY [facility] Last Admin: 01/10/17 10:49 Dose: 40 mg Polyethylene Glycol (Miralax (For Daily Use) -) 17 gm PO DAILY [facility] Last Admin: 01/10/17 11:00 Dose: Not Given Prednisone (Deltasone -) 40 mg PO DAILY [facility] Last Admin: 01/10/17 10:48 Dose: 40 mg Scopolamine HBr (Transderm-Scop -) 1 patch TD Q72H [facility] Last Admin: 01/10/17 17:08 Dose: Not Given Silver Sulfadiazine (Silvadene -) 1 applic TP BID [facility] Last Admin: 01/10/17 22:07 Dose: Not Given Simethicone (Mylicon -) 80 mg PO Q4H PRN PRN Reason: GAS Last Admin: 01/07/17 19:55 Dose: 80 mg Sodium Chloride ([place]al [place] -) 2 spray NS TID PRN PRN Reason: NASAL CONGESTION Tamsulosin HCl (Flomax -) 0.4 mg PO DAILY@0830 [facility] Last Admin: 01/11/17 10:22 Dose: Not Given - Objective Vital Signs: Vital Signs Temperature 97.6 F 01/11/17 05:24 Pulse Rate 64 01/11/17 08:03 Respiratory Rate 24 01/11/17 08:03 Blood Pressure 122/68 01/11/17 08:03 O2 Sat by Pulse Oximetry (%) 94 L 01/10/17 21:00 Constitutional: Yes: Thin, Other (WEAK) Eyes: Yes: WNL HENT: Yes: WNL Neck: Yes: WNL Cardiovascular: Yes: Regular Rate and Rhythm, S1, S2 Respiratory: Yes: Rales Gastrointestinal: Yes: Normal Bowel Sounds, Soft Extremities: Yes: WNL Edema: No Labs: CBC, BMP Problem List - Problems (1) Acute hypoxemic respiratory failure Code(s): J96.01 - ACUTE RESPIRATORY FAILURE WITH HYPOXIA Assessment/Plan Problem List - Problems (1) CKD (chronic kidney disease) Code(s): N18.9 - CHRONIC KIDNEY DISEASE, UNSPECIFIED (2) PAD (peripheral artery disease) Code(s): I73.9 - PERIPHERAL VASCULAR DISEASE, UNSPECIFIED (3) Pneumonia Code(s): J18.9 - PNEUMONIA, UNSPECIFIED ORGANISM Qualifiers: Pneumonia type: due to unspecified organism Laterality: bilateral Lung location: unspecified part of lung Qualified Code(s): J18.9 - Pneumonia, unspecified organism (4) Respiratory distress Code(s): R06.00 - DYSPNEA, UNSPECIFIED (5) Microcytic anemia Code(s): D50.9 - IRON DEFICIENCY ANEMIA, UNSPECIFIED (6) BPH (benign prostatic hyperplasia) Code(s): N40.0 - BENIGN PROSTATIC HYPERPLASIA WITHOUT LOWER URINRY TRACT SYMP (7) CAD (coronary artery disease) Code(s): I25.10 - ATHSCL HEART DISEASE OF [place] CORONARY ARTERY W/O ANG PCTRS Qualifiers: Associated angina: with unspecified angina (8) CHF (congestive heart failure) Code(s): I50.9 - HEART FAILURE, UNSPECIFIED Qualifiers: Congestive heart failure type: systolic Congestive heart failure chronicity: acute on chronic Qualified Code(s): I50.23 - Acute on chronic systolic (congestive) heart failure (9) Diabetes Code(s): E11.9 - TYPE 2 DIABETES MELLITUS WITHOUT COMPLICATIONS Qualifiers: Diabetes mellitus complication status: with other specified complication 10 ACUTE HYPOXEMIC RESPIRATORY FAILURE I1. PNEUMONIA 12 ILD 13 PTX resolved 14 AFIB Assessment/Plan O2 to maintain O2sat 90% Lasix Daily weights I&O BD [place] Prednisone monitor renal function rate control prognosis poor Dr Tyler
[2017-01-11] MEDS: SILVER SULFADIAZINE 1% TOP CREAM 50 GM JAR TP SCH ×2 (12:44→21:10)
[2017-01-11] MEDS: predniSONE 20 MG TABLET (UD) PO SCH (13:18)
[2017-01-11] MEDS: FUROSEMIDE 40 MG TABLET (FP) PO SCH (13:19)
[2017-01-11] MEDS: ASPIRIN COATED 81 MG TABLET.EC PO SCH (13:19)
[2017-01-11] MEDS: POLYETHYLENE GLYCOL 3350 119 GM BTL PO SCH (13:20)
[2017-01-11] MEDS: PANTOPRAZOLE 40 MG TABLET (FP) PO SCH (13:20)
[2017-01-11] MEDS: HEPARIN NA (PORCINE) 5,000 UNITS/ML 1ML VIAL SQ SCH ×2 (13:21→22:06)
--- NOTE | 2017-01-11 14:00 | PN ---
Physical Exam: SUBJECTIVE: Patient seen and examined at bed side this morning. He was tachypenic, however, was able to speak a full sentence. Said he feels very tired and weak and wanted to rest. Patient's was at bed side. She mentioned that she wants the patient to be treated here at the hospital. Patient's mentioned that state approved for patient's inpatient hospice care. OBJECTIVE: Vital Signs Period Temp Pulse Resp BP Sys/Blanca Pulse Ox Last 24 Hr 96.8 F-97.9 F 64-72 18-24 93-131/48-68 94-94 GENERAL: Elderly male, lying in bed, is awake, alert, and fully oriented, in mild respiratory distress. HEAD: Normal with no signs of trauma. EYES: EOM intact, no pallor or icterus. ENT: Ears normal, moist mucous membranes. NECK: Trachea midline, full range of motion, supple. LUNGS: Assessory muscle use, Breath sounds decreased bilaterally at the bases, no wheeze. HEART: Regular rate and rhythm, S1, S2 with systolic murmur. ABDOMEN: Soft, nontender, nondistended, normoactive bowel sounds, no guarding, no rebound, no hepatosplenomegaly, no masses. EXTREMITIES: 2+ pulses, warm, well-perfused, no edema. Dressing applied over the wound on the right ankle. NEUROLOGICAL: No facial droop, Bulk/tone normal, power/CN-unable to assess because of respiratory distress. Normal speech, gait not observed. PSYCH: Normal mood, normal affect. SKIN: Warm, dry, normal turgor, no rashes or lesions noted Laboratory Results - last 24 hr 01/10/17 01/10/17 01/11/17 15:39 22:05 05:19 POC Glucometer 191 141 87 01/11/17 11:45 POC Glucometer 117 Active Medications Generic Name Dose Route Start Last Admin Trade Name Freq PRN Reason Stop Dose Admin Acetaminophen 650 mg 01/06/17 15:40 01/08/17 22:04 Tylenol - PO 650 mg Q6H PRN Administration FEVER OR PAIN Amino Acids 30 ml 01/06/17 17:30 01/11/17 08:04 Prosource No Carb Liquid Pkt PO 30 ml BID@0800,1730 JONAS Administration Aspirin 81 mg 01/07/17 10:00 01/11/17 13:19 Ecotrin - PO 81 mg DAILY JONAS Administration Bacitracin 1 applic 01/07/17 10:00 01/10/17 10:51 Bacitracin - TP 1 applic DAILY JONAS Administration Collagenase 1 applic 01/07/17 10:00 01/10/17 10:50 Santyl - TP 1 applic DAILY JONAS Administration Furosemide 40 mg 01/10/17 10:00 01/11/17 13:19 Lasix - PO 40 mg DAILY JONAS Administration Guaifenesin 10 ml 01/06/17 15:40 01/09/17 17:26 Robitussin Dm - PO 10 ml Q6H PRN Administration COUGH Heparin Sodium (Porcine) 5,000 unit 01/07/17 09:30 01/11/17 13:21 Heparin - SQ Not Given BID JONAS Insulin Aspart 1 vial 01/06/17 16:30 01/11/17 13:21 Novolog Vial Sliding Scale - SQ Not Given ACHS [facility] Protocol Insulin Detemir 15 units 01/06/17 22:00 01/10/17 22:08 Levemir Vial SQ Not Given HS JONAS Insulin Detemir 35 units 01/07/17 07:00 01/11/17 06:05 Levemir Vial SQ Not Given AM JONAS Lidocaine/Aluminum/Magnesium/Simeth 5 ml 01/06/17 18:00 01/11/17 05:53 Magic Mouthwash *Sjr Formula* - MM 5 ml Q6HPO JONAS Administration Magnesium Hydroxide 30 ml 01/06/17 15:40 Milk Of Magnesia - PO HS PRN CONSTIPATION Metoprolol Tartrate 12.5 mg 01/07/17 22:00 01/11/17 13:42 Lopressor - PO 12.5 mg TID JONAS Administration Nystatin 1 applic 01/06/17 22:00 01/10/17 22:03 Mycostatin Cream - TP 1 applic BID JONAS Administration Nystatin 1 applic 01/06/17 16:00 01/10/17 10:50 Nystop Powder - TP 1 applic DAILY JONAS Administration Pantoprazole Sodium 40 mg 01/07/17 10:00 01/11/17 13:20 Protonix - PO 40 mg DAILY JONAS Administration Polyethylene Glycol 17 gm 01/05/17 15:15 01/11/17 13:20 Miralax (For Daily Use) - PO Not Given DAILY JONAS Prednisone 40 mg 01/10/17 10:00 01/11/17 13:18 Deltasone - PO 40 mg DAILY [facility] Administration Scopolamine HBr 1 patch 01/10/17 17:00 01/10/17 17:08 Transderm-Scop - TD Not Given Q72H [facility] Silver Sulfadiazine 1 applic 01/06/17 22:00 01/10/17 22:07 Silvadene - TP Not Given BID [facility] Simethicone 80 mg 01/06/17 15:40 01/07/17 19:55 Mylicon - PO 80 mg Q4H PRN Administration GAS Sodium Chloride 2 spray 01/10/17 12:02 [place] Nasal [place] - NS TID PRN NASAL CONGESTION Tamsulosin HCl 0.4 mg 01/07/17 08:30 01/11/17 10:22 Flomax - PO Not Given DAILY@0830 [facility] ASSESSMENT/PLAN: Patient is a 81-year-old man with a significant past medical history of diabetes mellitus, coronary artery disease status post CABG, benign prostate hyperplasia who was recently admitted at [facility] in July for Pneumonia, now in [facility] for physical therapy who presented to the emergency department via EMS for further evaluation of respiratory distress. # Acute hypoxic respiratory failure likely secondary to ILD and pneumonia Continue Oxygen @ 2L (Maintain saturation > 90 %-95%) Prednisone 40mg PO Daily Guaifenesis DM 10mg PO Q6H # Diabetes Mellitus Insulin sliding scale Finger stick glucose monitoring # Afib converted into NSR. Continue Metoprolol 12.5mg PO TID # CAD s/p CABG Aspirin 81mg Daily # Constipation Colace Daily # Tinea pedis Nystatin creatm TP BID # Ulcer in the right lateral malleolus Collagenase TP Daily # FEN Not on IV fluids Electrolytes to be repeated tomorrow Cholesterol/Fat controlled diet # Prophylaxis For DVT: On Heparin 5000 U sq For GI: On Pantoprazole 40mg Daily # Code Status: DNR/DNI Illness, Investigation and Plan of care explained to the patient and his . They verbalized understanding. Case seen and discussed with Dr. Chavira. Visit type - Emergency Visit Emergency Visit: Yes ED Registration Date: 12/16/16 Care time: The patient presented to the Emergency Department on the above date and was hospitalized for further evaluation of their emergent condition. - New Patient This patient is new to me today: Yes Date on this admission: 01/11/17 - Critical Care Critical Care patient: No
--- NOTE | 2017-01-11 15:36 | PN ---
Teaching Attending Note Name of Resident: Kassandra Crawley ATTENDING PHYSICIAN STATEMENT I saw and evaluated the patient. I reviewed the resident's note and discussed the case with the resident. I agree with the resident's findings and plan as documented. SUBJECTIVE: Patient was transferred to our service by on 01/11/2017 Patient is seen and examined. Patient has no new complains. On NC. OBJECTIVE: CBCD WBC 28.2 K/mm3 (4.0-10.0) H 01/07/17 05:35 RBC 4.32 M/mm3 (4.00-5.60) 01/07/17 05:35 Hgb 13.0 GM/dL (11.7-16.9) 01/07/17 05:35 Hct 38.9 % (35.4-49) 01/07/17 05:35 MCV 90.2 fl (80-96) 01/07/17 05:35 MCHC 33.3 g/dl (32.0-35.9) 01/07/17 05:35 RDW 14.3 % (11.9-15.9) 01/07/17 05:35 Plt Count 206 K/MM3 (134-434) 01/07/17 05:35 MPV 9.0 fl (7.5-11.1) 01/07/17 05:35 CMP Sodium 141 mmol/L (136-145) 01/07/17 05:35 Potassium 4.9 mmol/L (3.5-5.1) 01/07/17 05:35 Chloride 97 mmol/L (98-107) L 01/07/17 05:35 Carbon Dioxide 33 mmol/L (21-32) H 01/07/17 05:35 Anion Gap 11 (8-16) 01/07/17 05:35 BUN 74 mg/dL (7-18) H 01/07/17 05:35 Creatinine 1.3 mg/dL (0.7-1.3) 01/07/17 05:35 Creat Clearance w eGFR 52.85 (>60) 01/07/17 05:35 Random Glucose 97 mg/dL (74-106) D 01/07/17 05:35 Calcium 8.4 mg/dL (8.5-10.1) L 01/07/17 05:35 Total Bilirubin 0.7 mg/dL (0.2-1.0) 01/07/17 05:35 AST 21 U/L (15-37) 01/07/17 05:35 ALT 32 U/L (12-78) 01/07/17 05:35 Alkaline Phosphatase 149 U/L (45-117) H 01/07/17 05:35 Total Protein 5.6 g/dl (6.4-8.2) L 01/07/17 05:35 Albumin 2.5 g/dl (3.4-5.0) L 01/07/17 05:35 CARDIAC ENZYMES Creatine Kinase 31 IU/L (39-308) L 12/21/16 14:15 Troponin I 0.03 ng/ml (0.00-0.05) 12/21/16 14:15 Current Medications Generic Name Dose Route Start Last Admin Trade Name Freq PRN Reason Stop Dose Admin Acetaminophen 650 mg 01/06/17 15:40 01/08/17 22:04 Tylenol - PO 650 mg Q6H PRN Administration FEVER OR PAIN Amino Acids 30 ml 01/06/17 17:30 01/11/17 08:04 Prosource No Carb Liquid Pkt PO 30 ml BID@0800,1730 JONAS Administration Aspirin 81 mg 01/07/17 10:00 01/11/17 13:19 Ecotrin - PO 81 mg DAILY JONAS Administration Bacitracin 1 applic 01/07/17 10:00 01/10/17 10:51 Bacitracin - TP 1 applic DAILY JONAS Administration Collagenase 1 applic 01/07/17 10:00 01/10/17 10:50 Santyl - TP 1 applic DAILY JONAS Administration Furosemide 40 mg 01/10/17 10:00 01/11/17 13:19 Lasix - PO 40 mg DAILY JONAS Administration Guaifenesin 10 ml 01/06/17 15:40 01/09/17 17:26 Robitussin Dm - PO 10 ml Q6H PRN Administration COUGH Heparin Sodium (Porcine) 5,000 unit 01/07/17 09:30 01/11/17 13:21 Heparin - SQ Not Given BID JONAS Insulin Aspart 1 vial 01/06/17 16:30 01/11/17 13:21 Novolog Vial Sliding Scale - SQ Not Given ACHS [facility] Protocol Insulin Detemir 15 units 01/06/17 22:00 01/10/17 22:08 Levemir Vial SQ Not Given HS JONAS Insulin Detemir 35 units 01/07/17 07:00 01/11/17 06:05 Levemir Vial SQ Not Given AM JONAS Lidocaine/Aluminum/Magnesium/Simeth 5 ml 01/06/17 18:00 01/11/17 05:53 Magic Mouthwash *Sjr Formula* - MM 5 ml Q6HPO JONAS Administration Magnesium Hydroxide 30 ml 01/06/17 15:40 Milk Of Magnesia - PO HS PRN CONSTIPATION Metoprolol Tartrate 12.5 mg 01/07/17 22:00 01/11/17 13:42 Lopressor - PO 12.5 mg TID JONAS Administration Nystatin 1 applic 01/06/17 22:00 01/10/17 22:03 Mycostatin Cream - TP 1 applic BID JONAS Administration Nystatin 1 applic 01/06/17 16:00 01/10/17 10:50 Nystop Powder - TP 1 applic DAILY JNOAS Administration Pantoprazole Sodium 40 mg 01/07/17 10:00 01/11/17 13:20 Protonix - PO 40 mg DAILY JONAS Administration Polyethylene Glycol 17 gm 01/05/17 15:15 01/11/17 13:20 Miralax (For Daily Use) - PO Not Given DAILY JONAS Prednisone 40 mg 01/10/17 10:00 01/11/17 13:18 Deltasone - PO 40 mg DAILY JONAS Administration Scopolamine HBr 1 patch 01/10/17 17:00 01/10/17 17:08 Transderm-Scop - TD Not Given Q72H JONAS Silver Sulfadiazine 1 applic 01/06/17 22:00 01/10/17 22:07 Silvadene - TP Not Given BID JONAS Simethicone 80 mg 01/06/17 15:40 01/07/17 19:55 Mylicon - PO 80 mg Q4H PRN Administration GAS Sodium Chloride 2 spray 01/10/17 12:02 [place] Nasal [place] - NS TID PRN NASAL CONGESTION Tamsulosin HCl 0.4 mg 01/07/17 08:30 01/11/17 10:22 Flomax - PO Not Given DAILY@0830 [facility] PE: per resident's note ASSESSMENT AND PLAN: Patient is a 81-year-old man with a significant past medical history of T2DM,CAD , s/p CABG,BPH, who was recently admitted at [facility] in July for Pneumonia, now in [facility] for physical therapy who presented to the emergency department via EMS for further evaluation of respiratory distress. # Acute hypoxic respiratory failure due ILD and pneumonia on Oxygen continue , On Prednisone, Robitussin DM. Requesting Hospice care. Palliative care nurse is on the case. # Afib converted into NSR. continue Metoprolol 12.5mg PO TID # Diabetes Mellitus on Insulin sliding scale # CAD s/p CABG Aspirin 81mg Daily # Constipation on colace Daily # Tinea pedis Nystatin creatm TP BID # Open wound ;Ulcer in the right lateral malleolus Collagenase TP Daily # DVT Prophylaxis: On Heparin 5000 U sq GI Px: Pantoprazole Code Status: DNR/DNI
[2017-01-11] MEDS ORDERED: SODIUM CHLORIDE 1,000 ML IV SCH ×2 (19:00)
[2017-01-11] MEDS: ACETAMINOPHEN 325 MG TABLET (FP) PO PRN (20:57)
[2017-01-11] MEDS: NYSTATIN 100,000 UNIT/GM TOPICAL CREAM 15 GM TUBE TP SCH (21:06)
[2017-01-11] MEDS: COLLAGENASE CLOSTRIDIUM HIST. 30 GRAMS TUBE TP SCH (21:10)
[2017-01-11] MEDS: NYSTATIN POWDER 100,000 UNITS/GM - 15 GM TOPICAL POWDER TP SCH (21:12)
[2017-01-12] MEDS: METOPROLOL TARTRATE 25 MG TABLET (FP) PO SCH ×3 (06:22→22:46)
[2017-01-12] MEDS: MAG HYDROX/ALH/SMC/DPHA/LIDO 240 ML MOUTHWASH MM SCH ×3 (06:22→17:11)
[2017-01-12] MEDS: INSULIN SLIDING SCALE (NOVOLOG) 1 VIAL SQ SCH ×4 (06:24→22:45)
[2017-01-12] MEDS: INSULIN DETEMIR 100 UNITS/ML MDV SQ SCH ×2 (06:24→22:42)
[2017-01-12 07:24] LABS: MCH 30.2 pg (25.7-33.7); MCHC 33.6 g/dl (32.0-35.9); MEAN PLT VOLUME 9.5 fl (7.5-11.1); PLATELET COUNT 103 K/MM3 (134-434); RDW 14.7 % (11.9-15.9); WHITE BLOOD COUNT 15.8 K/mm3 (4.0-10.0)
[2017-01-12 07:49] LABS: ANION GAP 12 (8-16); CALCIUM 7.7 mg/dL (8.5-10.1); CO2 33 mmol/L (21-32); GLUCOSE,RANDOM 163 mg/dL (74-106)
[2017-01-12 07:54] LABS: ALK PHOS 128 U/L (45-117); BILIRUBIN,TOTAL 0.8 mg/dL (0.2-1.0); CREATININE 1.1 mg/dL (0.7-1.3); SGOT/AST 21 U/L (15-37); SGPT/ALT 36 U/L (12-78); TOT PROT 4.5 g/dl (6.4-8.2)
--- NOTE | 2017-01-12 08:08 | PN ---
Physical Exam: SUBJECTIVE: Patient seen and examined at bed side this morning. Patient mentioned he is not feeling any better. Has shortness of breath and feels very tired. is at bed side who mentioned that patient didn't sleep all night, had difficulty in breathing. Family doesn't want Bipap at this time. Patient has been moving bowels but doesn't have the energy to strain it as per the . OBJECTIVE: Vital Signs Period Temp Pulse Resp BP Sys/Blanca Pulse Ox Last 24 Hr 96.0 F-969.8 F 66-75 22-22 104-140/47-69 93-97 GENERAL: Elderly male, lying in bed, is awake, alert, and fully oriented, in mild respiratory distress. Currie catheter in place. HEAD: Normal with no signs of trauma. EYES: EOM intact, no pallor or icterus. ENT: Ears normal, moist mucous membranes. NECK: Trachea midline, full range of motion, supple. LUNGS: Assessory muscle use +, Breath sounds decreased bilaterally at the bases , no wheeze. HEART: Regular rate and rhythm, S1, S2 with systolic murmur. ABDOMEN: Soft, nontender, nondistended, normoactive bowel sounds, no guarding, no rebound, no hepatosplenomegaly, no masses. EXTREMITIES: 2+ pulses, warm, well-perfused, no edema. Dressing applied over the wound on the right ankle. NEUROLOGICAL: No facial droop, Bulk/tone normal, power/CN-unable to assess because of respiratory distress. Normal speech but cannot speak a full sentence due to sob, gait not observed. PSYCH: Normal mood, normal affect. SKIN: Warm, dry, normal turgor, no rashes or lesions noted Laboratory Results - last 24 hr 01/11/17 01/11/17 01/11/17 11:45 15:45 22:01 WBC RBC Hgb Hct MCV MCHC RDW Plt Count MPV POC Glucometer 117 233 288 01/12/17 01/12/17 06:00 06:07 WBC 15.8 H D RBC 4.08 Hgb 12.3 Hct 36.7 MCV 90.0 MCHC 33.6 RDW 14.7 Plt Count 103 L D MPV 9.5 POC Glucometer 149 Active Medications Generic Name Dose Route Start Last Admin Trade Name Freq PRN Reason Stop Dose Admin Acetaminophen 650 mg 01/06/17 15:40 06/21/17 20:57 Tylenol - PO 650 mg Q6H PRN Administration FEVER OR PAIN Amino Acids 30 ml 01/06/17 17:30 01/11/17 18:29 Prosource No Carb Liquid Pkt PO 30 ml BID@0800,1730 JONAS Administration Aspirin 81 mg 01/07/17 10:00 01/11/17 13:19 Ecotrin - PO 81 mg DAILY JONAS Administration Bacitracin 1 applic 01/07/17 10:00 01/10/17 10:51 Bacitracin - TP 1 applic DAILY JONAS Administration Collagenase 1 applic 01/07/17 10:00 01/11/17 21:10 Santyl - TP 1 applic DAILY JONAS Administration Furosemide 40 mg 01/10/17 10:00 01/11/17 13:19 Lasix - PO 40 mg DAILY JONAS Administration Guaifenesin 10 ml 01/06/17 15:40 01/09/17 17:26 Robitussin Dm - PO 10 ml Q6H PRN Administration COUGH Heparin Sodium (Porcine) 5,000 unit 01/07/17 09:30 01/11/17 22:06 Heparin - SQ Not Given BID JONAS Sodium Chloride 1,000 mls @ 42 mls/hr 01/11/17 19:00 01/11/17 19:30 Normal Saline - IV 01/13/17 18:49 42 mls/hr ASDIR JONAS Administration Insulin Aspart 1 vial 01/06/17 16:30 01/12/17 06:24 Novolog Vial Sliding Scale - SQ Not Given ACHS [facility] Protocol Insulin Detemir 15 units 01/06/17 22:00 01/11/17 22:06 Levemir Vial SQ 15 units HS JONAS Administration Insulin Detemir 35 units 01/07/17 07:00 01/12/17 06:24 Levemir Vial SQ Not Given AM JONAS Lidocaine/Aluminum/Magnesium/Simeth 5 ml 01/06/17 18:00 01/12/17 06:22 Magic Mouthwash *Sjr Formula* - MM 5 ml Q6HPO JONAS Administration Magnesium Hydroxide 30 ml 01/06/17 15:40 Milk Of Magnesia - PO HS PRN CONSTIPATION Metoprolol Tartrate 12.5 mg 01/07/17 22:00 01/12/17 06:22 Lopressor - PO 12.5 mg TID JONAS Administration Nystatin 1 applic 01/06/17 22:00 01/11/17 21:06 Mycostatin Cream - TP 1 applic BID JONAS Administration Nystatin 1 applic 01/06/17 16:00 01/11/17 21:12 Nystop Powder - TP 1 applic DAILY JONAS Administration Pantoprazole Sodium 40 mg 01/07/17 10:00 01/11/17 13:20 Protonix - PO 40 mg DAILY JONAS Administration Polyethylene Glycol 17 gm 01/05/17 15:15 01/11/17 13:20 Miralax (For Daily Use) - PO Not Given DAILY JONAS Prednisone 40 mg 01/10/17 10:00 01/11/17 13:18 Deltasone - PO 40 mg DAILY JONAS Administration Scopolamine HBr 1 patch 01/10/17 17:00 01/10/17 17:08 Transderm-Scop - TD Not Given Q72H JONAS Silver Sulfadiazine 1 applic 01/06/17 22:00 01/11/17 21:10 Silvadene - TP 1 applic BID JONAS Administration Simethicone 80 mg 01/06/17 15:40 01/07/17 19:55 Mylicon - PO 80 mg Q4H PRN Administration GAS Sodium Chloride 2 spray 01/10/17 12:02 [place] Nasal [place] - NS TID PRN NASAL CONGESTION Tamsulosin HCl 0.4 mg 01/07/17 08:30 01/11/17 10:22 Flomax - PO Not Given DAILY@0830 [facility] ASSESSMENT/PLAN: Patient is a 81-year-old man with a significant past medical history of diabetes mellitus, coronary artery disease status post CABG, benign prostate hyperplasia who was recently admitted at [facility] in July for Pneumonia, now in [facility] for physical therapy who presented to the emergency department via EMS for further evaluation of respiratory distress. # Acute hypoxic respiratory failure likely secondary to ILD and pneumonia Continue Oxygen @ 2L (Maintain saturation > 90 %-95%), patient doesn't want Bipap. However, if patient agrees, would benefit from Bipap. Completed multiple course of antibiotics for pneumonia, now off antibiotics. Prednisone 40mg PO Daily Guaifenesis DM 10mg PO Q6H # Diabetes Mellitus Insulin sliding scale Finger stick glucose monitoring # Afib converted into NSR. Continue Metoprolol 12.5mg PO TID # CAD s/p CABG Aspirin 81mg Daily # Constipation Colace Daily # Tinea pedis Nystatin creatm TP BID # Ulcer in the right lateral malleolus Collagenase TP Daily # FEN IV Clinimix @ 42mls/hr Electrolytes to be repeated tomorrow Cholesterol/Fat controlled diet # Prophylaxis For DVT: On Heparin 5000 U sq For GI: On Pantoprazole 40mg Daily # Code Status: DNR/DNI Illness, Investigation and Plan of care explained to the patient and his . They verbalized understanding. Had a long discussion with patients regarding goals of care. mentions that she is well aware of the poor prognosis of the patient but would like to give whatever treatment patient is requesting for; labs to be drawn once a week. requested to get the flim of a CT scan of the chest in a CD which has been arranged and given it to her. Case seen and discussed with Dr. Chavira. Visit type - Emergency Visit Emergency Visit: Yes ED Registration Date: 12/16/16 Care time: The patient presented to the Emergency Department on the above date and was hospitalized for further evaluation of their emergent condition. - New Patient This patient is new to me today: No - Critical Care Critical Care patient: No - Discharge Referral Referred to [facility] Med P.C.: No
[2017-01-12] MEDS: ASPIRIN COATED 81 MG TABLET.EC PO SCH (10:18)
[2017-01-12] MEDS: NYSTATIN 100,000 UNIT/GM TOPICAL CREAM 15 GM TUBE TP SCH ×2 (10:18→22:45)
[2017-01-12] MEDS: HEPARIN NA (PORCINE) 5,000 UNITS/ML 1ML VIAL SQ SCH ×2 (10:18→22:44)
[2017-01-12] MEDS: BACITRACIN 15 GM TUBE TOPICAL OINTMENT TP SCH (10:18)
[2017-01-12] MEDS: AMINO ACIDS/PROTEIN HYDROLYS 30 ML LIQUID.PKT PO SCH ×2 (10:18→16:47)
[2017-01-12] MEDS: FUROSEMIDE 40 MG TABLET (FP) PO SCH (10:18)
[2017-01-12] MEDS: predniSONE 20 MG TABLET (UD) PO SCH (10:18)
[2017-01-12] MEDS: PANTOPRAZOLE 40 MG TABLET (FP) PO SCH (10:18)
[2017-01-12] MEDS: SILVER SULFADIAZINE 1% TOP CREAM 50 GM JAR TP SCH ×2 (10:19→22:46)
[2017-01-12] MEDS: COLLAGENASE CLOSTRIDIUM HIST. 30 GRAMS TUBE TP SCH (10:19)
[2017-01-12] MEDS: TAMSULOSIN HCL 0.4 MG CAP.ER.24H (FP) PO SCH (10:19)
[2017-01-12] MEDS: NYSTATIN POWDER 100,000 UNITS/GM - 15 GM TOPICAL POWDER TP SCH (10:19)
[2017-01-12] MEDS: SIMETHICONE 80 MG TAB.CHEW (FP) PO PRN (10:22)
[2017-01-12] MEDS: POLYETHYLENE GLYCOL 3350 119 GM BTL PO SCH (10:32)
--- NOTE | 2017-01-12 12:11 | PN ---
Progress Note (short form) - Note Progress Note: PULMONARY Saturating low 90s on NRB. No fevers recorded. Last Vital Signs Temp Pulse Resp BP Pulse Ox 969.8 F H 68 22 115/69 92 L 01/12/17 06:00 01/12/17 06:00 01/12/17 08:00 01/12/17 06:00 01/12/17 08:00 Gen: tachypenic at rest Heart: RRR Lung: bibasilar rales Abd: soft, nontender Ext: no edema CBC, BMP 01/12/17 06:00 01/12/17 06:00 Active Medications Acetaminophen (Tylenol -) 650 mg PO Q6H PRN PRN Reason: FEVER OR PAIN Last Admin: 01/11/17 20:57 Dose: 650 mg Amino Acids (Prosource No Carb Liquid Pkt) 30 ml PO BID@0800,1730 [facility] Last Admin: 01/12/17 10:18 Dose: 30 ml Aspirin (Ecotrin -) 81 mg PO DAILY [facility] Last Admin: 01/12/17 10:18 Dose: 81 mg Bacitracin (Bacitracin -) 1 applic TP DAILY JONAS Last Admin: 01/12/17 10:18 Dose: 1 applic Collagenase (Santyl -) 1 applic TP DAILY [facility] Last Admin: 01/12/17 10:19 Dose: 1 applic Furosemide (Lasix -) 40 mg PO DAILY [facility] Last Admin: 01/12/17 10:18 Dose: 40 mg Guaifenesin (Robitussin Dm -) 10 ml PO Q6H PRN PRN Reason: COUGH Last Admin: 01/09/17 17:26 Dose: 10 ml Heparin Sodium (Porcine) (Heparin -) 5,000 unit SQ BID JONAS Last Admin: 01/12/17 10:18 Dose: 5,000 unit Sodium Chloride (Normal Saline -) 1,000 mls @ 42 mls/hr IV ASDIR JONAS Stop: 01/13/17 18:49 Last Admin: 01/11/17 19:30 Dose: 42 mls/hr Insulin Aspart (Novolog Vial Sliding Scale -) 1 vial SQ ACHS JONAS PRN Reason: Protocol Last Admin: 01/12/17 11:31 Dose: Not Given Insulin Detemir (Levemir Vial) 15 units SQ HS [facility] Last Admin: 01/11/17 22:06 Dose: 15 units Insulin Detemir (Levemir Vial) 35 units SQ AM [facility] Last Admin: 01/12/17 06:24 Dose: Not Given Lidocaine/Aluminum/Magnesium/Simeth (Magic Mouthwash *Sjr Formula* -) 5 ml MM Q6HPO [facility] Last Admin: 01/12/17 06:22 Dose: 5 ml Magnesium Hydroxide (Milk Of Magnesia -) 30 ml PO HS PRN PRN Reason: CONSTIPATION Metoprolol Tartrate (Lopressor -) 12.5 mg PO TID [facility] Last Admin: 01/12/17 06:22 Dose: 12.5 mg Nystatin (Mycostatin Cream -) 1 applic TP BID [facility] Last Admin: 01/12/17 10:18 Dose: 1 applic Nystatin (Nystop Powder -) 1 applic TP DAILY [facility] Last Admin: 01/12/17 10:19 Dose: 1 applic Pantoprazole Sodium (Protonix -) 40 mg PO DAILY [facility] Last Admin: 01/12/17 10:18 Dose: 40 mg Polyethylene Glycol (Miralax (For Daily Use) -) 17 gm PO DAILY [facility] Last Admin: 01/12/17 10:32 Dose: Not Given Prednisone (Deltasone -) 40 mg PO DAILY [facility] Last Admin: 01/12/17 10:18 Dose: 40 mg Scopolamine HBr (Transderm-Scop -) 1 patch TD Q72H [facility] Last Admin: 01/10/17 17:08 Dose: Not Given Silver Sulfadiazine (Silvadene -) 1 applic TP BID [facility] Last Admin: 01/12/17 10:19 Dose: 1 applic Simethicone (Mylicon -) 80 mg PO Q4H PRN PRN Reason: GAS Last Admin: 01/12/17 10:22 Dose: 80 mg Sodium Chloride ([place] Nasal [place] -) 2 spray NS TID PRN PRN Reason: NASAL CONGESTION Tamsulosin HCl (Flomax -) 0.4 mg PO DAILY@0830 [facility] Last Admin: 01/12/17 10:19 Dose: 0.4 mg A/P Acute Hypoxic Respiratory Failure Interstitial Lung Disease Pneumonia Acute on Chronic LV Systolic Heart Failure CAD PAD CKD DM - s/p multiple antibiotic courses - continue steroids - O2 to keep Spo2 >90% - BiPAP as needed - lasix - monitor urine output, creatinine - continue discussions regarding goals of care - poor prognosis
[2017-01-12] MEDS: AMINO ACIDS 4.25%/D5W 1,000 ML IV SCH (14:40)
[2017-01-12] MEDS: ASCORBIC ACID 250 MG TABLET (FP) PO SCH (14:41)
--- NOTE | 2017-01-12 15:27 | PN ---
Teaching Attending Note Name of Resident: Kassandra Crawley ATTENDING PHYSICIAN STATEMENT I saw and evaluated the patient. I reviewed the resident's note and discussed the case with the resident. I agree with the resident's findings and plan as documented. SUBJECTIVE: Patient is lying in bed desaturating off oxygen. at bedside. Requesting hospice care in the hospital. OBJECTIVE: Vital Signs Temperature 969.8 F H 01/12/17 06:00 Pulse Rate 68 01/12/17 06:00 Respiratory Rate 01/12/17 08:00 Blood Pressure 115/69 01/12/17 06:00 O2 Sat by Pulse Oximetry (%) 92 L 01/12/17 08:00 CBCD WBC 15.8 K/mm3 (4.0-10.0) H D 01/12/17 06:00 RBC 4.08 M/mm3 (4.00-5.60) 01/12/17 06:00 Hgb 12.3 GM/dL (11.7-16.9) 01/12/17 06:00 Hct 36.7 % (35.4-49) 01/12/17 06:00 MCV 90.0 fl (80-96) 01/12/17 06:00 MCHC 33.6 g/dl (32.0-35.9) 01/12/17 06:00 RDW 14.7 % (11.9-15.9) 01/12/17 06:00 Plt Count 103 K/MM3 (134-434) L D 01/12/17 06:00 MPV 9.5 fl (7.5-11.1) 01/12/17 06:00 CMP Sodium 144 mmol/L (136-145) 01/12/17 06:00 Potassium 3.8 mmol/L (3.5-5.1) D 01/12/17 06:00 Chloride 99 mmol/L (98-107) 01/12/17 06:00 Carbon Dioxide 33 mmol/L (21-32) H 01/12/17 06:00 Anion Gap 12 (8-16) 01/12/17 06:00 BUN 76 mg/dL (7-18) H 01/12/17 06:00 Creatinine 1.1 mg/dL (0.7-1.3) 01/12/17 06:00 Creat Clearance w eGFR > 60 (>60) 01/12/17 06:00 Random Glucose 163 mg/dL (74-106) H D 01/12/17 06:00 Calcium 7.7 mg/dL (8.5-10.1) L 01/12/17 06:00 Total Bilirubin 0.8 mg/dL (0.2-1.0) 01/12/17 06:00 AST 21 U/L (15-37) 01/12/17 06:00 ALT 36 U/L (12-78) 01/12/17 06:00 Alkaline Phosphatase 128 U/L (45-117) H 01/12/17 06:00 Total Protein 4.5 g/dl (6.4-8.2) L 01/12/17 06:00 Albumin 2.0 g/dl (3.4-5.0) L 01/12/17 06:00 CARDIAC ENZYMES Creatine Kinase 31 IU/L (39-308) L 12/21/16 14:15 Troponin I 0.03 ng/ml (0.00-0.05) 12/21/16 14:15 Current Medications Generic Name Dose Route Start Last Admin Trade Name Freq PRN Reason Stop Dose Admin Acetaminophen 650 mg 01/06/17 15:40 01/11/17 20:57 Tylenol - PO 650 mg Q6H PRN Administration FEVER OR PAIN Amino Acids 30 ml 01/06/17 17:30 01/12/17 10:18 Prosource No Carb Liquid Pkt PO 30 ml BID@0800,1730 JONAS Administration Ascorbic Acid 250 mg 01/12/17 14:00 01/12/17 14:41 Vitamin C - PO 250 mg DAILY JONAS Administration Aspirin 81 mg 01/07/17 10:00 01/12/17 10:18 Ecotrin - PO 81 mg DAILY JONAS Administration Bacitracin 1 applic 01/07/17 10:00 01/12/17 10:18 Bacitracin - TP 1 applic DAILY JONAS Administration Collagenase 1 applic 01/07/17 10:00 01/12/17 10:19 Santyl - TP 1 applic DAILY JONAS Administration Furosemide 40 mg 01/10/17 10:00 01/12/17 10:18 Lasix - PO 40 mg DAILY JONAS Administration Guaifenesin 10 ml 01/06/17 15:40 01/09/17 17:26 Robitussin Dm - PO 10 ml Q6H PRN Administration COUGH Heparin Sodium (Porcine) 5,000 unit 01/07/17 09:30 01/12/17 10:18 Heparin - SQ 5,000 unit BID JONAS Administration Amino Acids 1,000 mls @ 42 mls/hr 01/12/17 13:00 01/12/17 14:40 Clinimix - IV 42 mls/hr Q24H JONAS Administration Insulin Aspart 1 vial 01/06/17 16:30 01/12/17 11:31 Novolog Vial Sliding Scale - SQ Not Given ACHS COUNT INCLUDES THE [facility] Protocol Insulin Detemir 15 units 01/06/17 22:00 01/11/17 22:06 Levemir Vial SQ 15 units HS JONAS Administration Insulin Detemir 35 units 01/07/17 07:00 01/12/17 06:24 Levemir Vial SQ Not Given AM JONAS Lidocaine/Aluminum/Magnesium/Simeth 5 ml 01/06/17 18:00 01/12/17 12:29 Magic Mouthwash *Sjr Formula* - MM Not Given Q6HPO JONAS Magnesium Hydroxide 30 ml 01/06/17 15:40 Milk Of Magnesia - PO HS PRN CONSTIPATION Metoprolol Tartrate 12.5 mg 01/07/17 22:00 01/12/17 14:40 Lopressor - PO 12.5 mg TID JONAS Administration Nystatin 1 applic 01/06/17 22:00 01/12/17 10:18 Mycostatin Cream - TP 1 applic BID JONAS Administration Nystatin 1 applic 01/06/17 16:00 01/12/17 10:19 Nystop Powder - TP 1 applic DAILY JONAS Administration Pantoprazole Sodium 40 mg 01/07/17 10:00 01/12/17 10:18 Protonix - PO 40 mg DAILY JONAS Administration Polyethylene Glycol 17 gm 01/05/17 15:15 01/12/17 10:32 Miralax (For Daily Use) - PO Not Given DAILY JONAS Prednisone 40 mg 01/10/17 10:00 01/12/17 10:18 Deltasone - PO 40 mg DAILY JONAS Administration Scopolamine HBr 1 patch 01/10/17 17:00 01/10/17 17:08 Transderm-Scop - TD Not Given Q72H JONAS Silver Sulfadiazine 1 applic 01/06/17 22:00 01/12/17 10:19 Silvadene - TP 1 applic BID JONAS Administration Simethicone 80 mg 01/06/17 15:40 01/12/17 10:22 Mylicon - PO 80 mg Q4H PRN Administration GAS Sodium Chloride 2 spray 01/10/17 12:02 [place] Nasal [place] - NS TID PRN NASAL CONGESTION Tamsulosin HCl 0.4 mg 01/07/17 08:30 01/12/17 10:19 Flomax - PO 0.4 mg DAILY@0830 JONAS Administration Home Medications Medication Instructions Recorded Aspirin [ASA -] 81 mg PO DAILY tab.chew 08/10/16 Budesonide [Pulmicort 0.25 mg 1 neb PO BID 12/16/16 Nebulizer -] Clopidogrel Bisulfate [Plavix -] 75 mg PO DAILY 12/16/16 Collagenase Clostridium Hist. 1 applic TP DAILY 12/16/16 [Santyl] Flunisolide 25 ml NS BID 12/16/16 Heparin - 5,000 unit SQ BID 12/16/16 Insulin Glargine,Hum.rec.anlog 40 units SQ HS 12/16/16 [Lantus (nf)] Insulin Lispro [Humalog] 0 unit SQ AC 12/16/16 Ipratropium/Albuterol Sulfate 3 ml IH QID 12/16/16 [Iprat-Albut 0.5-3(2.5) mg/3 ml] Oxycodone HCl/Acetaminophen 1 each PO QID PRN 12/16/16 [Oxycodone-Acetaminophen 5-325] Pantoprazole Sodium 40 mg PO DAILY 12/16/16 Prednisone [Deltasone -] 20 mg PO DAILY 12/16/16 Sennosides [Senokot] 8.6 mg PO HS 12/16/16 Tamsulosin HCl [Flomax] 0.4 mg PO DAILY 12/16/16 Acetaminophen [Tylenol .Regular 650 mg PO Q6H PRN #0 tablet 01/10/17 Strength -] Amino Acids/Protein Hydrolys 30 ml PO BID@0800,1730 packet 01/10/17 [Prosource No Carb Liquid Pkt] Ascorbic Acid [Vitamin C -] 250 mg PO BID tablet 01/10/17 Bacitracin - [Bacitracin Topical 1 applic TP DAILY tube 01/10/17 Ointment -] Collagenase Clostridium Hist. 1 applic TP DAILY tube 01/10/17 [Santyl -] Furosemide [Lasix -] 40 mg PO DAILY tablet 01/10/17 Heparin - 5,000 unit SQ BID vial 01/10/17 Insulin Sliding Scale [Novolog 1 vial SQ ACHS units 01/10/17 Vial Sliding Scale -] Mag Hydrox/Alh/Smc/Dpha/Lido 5 ml MM Q6HPO bottle 01/10/17 [Magic Mouthwash *Sjr Formula* -] Metoprolol Tartrate [Lopressor -] 12.5 mg PO TID tablet 01/10/17 Multivitamins [Multivit ([facility] 1 tab PO DAILY tab 01/10/17 Formulary)] Nystatin Powder [Nystop Powder -] 1 applic TP DAILY applic 01/10/17 Prednisone [Deltasone -] 40 mg PO DAILY tablet 01/10/17 Silver Sulfadiazine 1% Top Cr 1 applic TP BID jar 01/10/17 [Silvadene -] Simethicone [Mylicon -] 80 mg PO Q4H PRN #0 tab.chew 01/10/17 PE: per resident's note ASSESSMENT AND PLAN: Patient is a 81-year-old man with a significant past medical history of T2DM,CAD , s/p CABG,BPH, who was recently admitted at [facility] in July for Pneumonia, now in [facility] for physical therapy who presented to the emergency department via EMS for further evaluation of respiratory distress. Patient was made hospice care. patient and patient's does not want the patient to be on Morphine. # Acute hypoxic respiratory failure due ILD and pneumonia on Oxygen continue , On Prednisone, Robitussin DM. Requesting Hospice care. Palliative care nurse is on the case. # Afib converted into NSR. continue Metoprolol 12.5mg PO TID # Diabetes Mellitus on Insulin sliding scale # CAD s/p CABG Aspirin 81mg Daily # Constipation on colace Daily # Tinea pedis Nystatin creatm TP BID # Open wound ;Ulcer in the right lateral malleolus Collagenase TP Daily # DVT Prophylaxis: On Heparin 5000 U sq GI Px: Pantoprazole Code Status: DNR/DNI Patient is under Hospice care ;DNR/DNI
[2017-01-13] MEDS: METOPROLOL TARTRATE 25 MG TABLET (FP) PO SCH (06:34)
[2017-01-13] MEDS: MAG HYDROX/ALH/SMC/DPHA/LIDO 240 ML MOUTHWASH MM SCH ×5 (06:34→19:00)
[2017-01-13] MEDS: INSULIN DETEMIR 100 UNITS/ML MDV SQ SCH ×2 (06:35→22:24)
[2017-01-13] MEDS: INSULIN SLIDING SCALE (NOVOLOG) 1 VIAL SQ SCH ×5 (06:35→22:23)
[2017-01-13] MEDS: AMINO ACIDS/PROTEIN HYDROLYS 30 ML LIQUID.PKT PO SCH (08:30)
[2017-01-13] MEDS: TAMSULOSIN HCL 0.4 MG CAP.ER.24H (FP) PO SCH (08:32)
--- NOTE | 2017-01-13 09:00 | PN ---
Physical Exam: SUBJECTIVE: Patient seen and examined at bed side this morning. Patient says he feels better than yesterday. at bedside, said patient slept for 2 hrs this morning and he feels better, had bowel movement this morning. Overnight, BiPap was used on/off. OBJECTIVE: Vital Signs Period Temp Pulse Resp BP Sys/Blanca Pulse Ox Last 24 Hr 96.8 F-97.0 F 59-73 18-26 113-133/56-58 92-100 GENERAL: Elderly male, lying in bed, looks better than yesterday, is awake, alert, and fully oriented, in mild respiratory distress. Currie catheter in place. HEAD: Normal with no signs of trauma. EYES: EOM intact, no pallor or icterus. ENT: Ears normal, moist mucous membranes. NECK: Trachea midline, full range of motion, supple. LUNGS: Assessory muscle use +, Breath sounds decreased bilaterally at the bases , no wheeze. HEART: Regular rate and rhythm, S1, S2 with systolic murmur. ABDOMEN: Soft, nontender, nondistended, normoactive bowel sounds, no guarding, no rebound, no hepatosplenomegaly, no masses. EXTREMITIES: 2+ pulses, warm, well-perfused, no edema. Dressing applied over the wound on the right ankle. NEUROLOGICAL: No facial droop, Bulk/tone normal, power/CN-unable to assess because of respiratory distress. Normal speech but cannot speak a full sentence due to sob, gait not observed. PSYCH: Normal mood, normal affect. SKIN: Warm, dry, normal turgor, no rashes or lesions noted Laboratory Results - last 24 hr 01/12/17 01/12/17 01/12/17 11:14 16:45 22:40 POC Glucometer 84 164 445 01/13/17 05:54 POC Glucometer 386 Active Medications Generic Name Dose Route Start Last Admin Trade Name Freq PRN Reason Stop Dose Admin Acetaminophen 650 mg 01/06/17 15:40 01/11/17 20:57 Tylenol - PO 650 mg Q6H PRN Administration FEVER OR PAIN Amino Acids 30 ml 01/06/17 17:30 01/13/17 08:30 Prosource No Carb Liquid Pkt PO Not Given BID@0800,1730 [facility] Ascorbic Acid 250 mg 01/12/17 14:00 01/12/17 14:41 Vitamin C - PO 250 mg DAILY JONAS Administration Aspirin 81 mg 01/07/17 10:00 01/12/17 10:18 Ecotrin - PO 81 mg DAILY JONAS Administration Bacitracin 1 applic 01/07/17 10:00 01/12/17 10:18 Bacitracin - TP 1 applic DAILY JONAS Administration Collagenase 1 applic 01/07/17 10:00 01/12/17 10:19 Santyl - TP 1 applic DAILY JONAS Administration Furosemide 40 mg 01/10/17 10:00 01/12/17 10:18 Lasix - PO 40 mg DAILY JONAS Administration Guaifenesin 10 ml 01/06/17 15:40 01/09/17 17:26 Robitussin Dm - PO 10 ml Q6H PRN Administration COUGH Heparin Sodium (Porcine) 5,000 unit 01/07/17 09:30 01/12/17 22:44 Heparin - SQ Not Given BID JONAS Amino Acids 1,000 mls @ 42 mls/hr 01/12/17 13:00 01/12/17 14:40 Clinimix - IV 42 mls/hr Q24H JONAS Administration Insulin Aspart 1 vial 01/06/17 16:30 01/13/17 06:35 Novolog Vial Sliding Scale - SQ 10 units ACHS JONAS Administration Protocol Insulin Detemir 15 units 01/06/17 22:00 01/12/17 22:42 Levemir Vial SQ 15 units HS JONAS Administration Insulin Detemir 35 units 01/07/17 07:00 01/13/17 06:35 Levemir Vial SQ 35 units AM JONAS Administration Lidocaine/Aluminum/Magnesium/Simeth 5 ml 01/06/17 18:00 01/13/17 06:34 Magic Mouthwash *Sjr Formula* - MM 5 ml Q6HPO JONAS Administration Magnesium Hydroxide 30 ml 01/06/17 15:40 Milk Of Magnesia - PO HS PRN CONSTIPATION Metoprolol Tartrate 12.5 mg 01/07/17 22:00 01/13/17 06:34 Lopressor - PO 12.5 mg TID JONAS Administration Nystatin 1 applic 01/06/17 22:00 01/12/17 22:45 Mycostatin Cream - TP 1 applic BID JONAS Administration Nystatin 1 applic 01/06/17 16:00 01/12/17 10:19 Nystop Powder - TP 1 applic DAILY JONAS Administration Pantoprazole Sodium 40 mg 01/07/17 10:00 01/12/17 10:18 Protonix - PO 40 mg DAILY JONAS Administration Polyethylene Glycol 17 gm 01/05/17 15:15 01/12/17 10:32 Miralax (For Daily Use) - PO Not Given DAILY JONAS Prednisone 40 mg 01/10/17 10:00 01/12/17 10:18 Deltasone - PO 40 mg DAILY JONAS Administration Scopolamine HBr 1 patch 01/10/17 17:00 01/10/17 17:08 Transderm-Scop - TD Not Given Q72H JONAS Silver Sulfadiazine 1 applic 01/06/17 22:00 01/12/17 22:46 Silvadene - TP 1 applic BID JONAS Administration Simethicone 80 mg 01/06/17 15:40 01/12/17 10:22 Mylicon - PO 80 mg Q4H PRN Administration GAS Sodium Chloride 2 spray 01/10/17 12:02 [place] Nasal [place] - NS TID PRN NASAL CONGESTION Tamsulosin HCl 0.4 mg 01/07/17 08:30 01/13/17 08:32 Flomax - PO Not Given DAILY@0830 [facility] ASSESSMENT/PLAN: Patient is a 81-year-old man with a significant past medical history of diabetes mellitus, coronary artery disease status post CABG, benign prostate hyperplasia who was recently admitted at [facility] in July for Pneumonia, now in [facility] for physical therapy who presented to the emergency department via EMS for further evaluation of respiratory distress. # Acute hypoxic respiratory failure likely secondary to ILD and pneumonia Continue Oxygen @ 2L (Maintain saturation > 90 %-95%), Bipap as needed. Changed to Solumedrol 60mg IV Q8H Guaifenesis DM 10mg PO Q6H Mucomist Neb Albuterol Q4H PRN IV Morphine 1mg HS PRN (Discussed with the patient and his , they agreed) # Diabetes Mellitus Insulin sliding scale Finger stick glucose monitoring Reduced the levemir dose- Levemir 7.5 u sq HS and Levemir 17 U sq AM # Afib converted into NSR. Changed PO to IV 2.5mg Q6H # CAD s/p CABG Changed PO to [place] Aspirin 300mg Daily # Constipation Colace Daily # Tinea pedis Nystatin creatm TP BID # Ulcer in the right lateral malleolus Collagenase TP Daily # FEN IV Clinimix @ 42mls/hr Electrolytes to be repeated tomorrow NPO due to aspiration precautions. # Prophylaxis For DVT: On Heparin 5000 U sq For GI: On IV Pantoprazole 40mg BID Daily # Code Status: DNR/DNI Illness, Investigation and Plan of care explained to the patient and his . They verbalized understanding. Had a long discussion with patients regarding goals of care. mentions that she is well aware of the poor prognosis of the patient but would like to give whatever treatment patient is requesting for; labs to be drawn once a week. Case seen and discussed with Dr. Chavira. Visit type - Emergency Visit Emergency Visit: Yes ED Registration Date: 12/16/16 Care time: The patient presented to the Emergency Department on the above date and was hospitalized for further evaluation of their emergent condition. - New Patient This patient is new to me today: No - Critical Care Critical Care patient: No
[2017-01-13] MEDS: predniSONE 20 MG TABLET (UD) PO SCH (09:37)
[2017-01-13] MEDS: FUROSEMIDE 40 MG TABLET (FP) PO SCH ×2 (09:38→09:51)
[2017-01-13] MEDS: ASPIRIN COATED 81 MG TABLET.EC PO SCH (09:38)
[2017-01-13] MEDS: POLYETHYLENE GLYCOL 3350 119 GM BTL PO SCH (09:38)
[2017-01-13] MEDS: PANTOPRAZOLE 40 MG TABLET (FP) PO SCH (09:39)
[2017-01-13] MEDS: HEPARIN NA (PORCINE) 5,000 UNITS/ML 1ML VIAL SQ SCH ×2 (09:39→22:25)
[2017-01-13] MEDS: ASCORBIC ACID 250 MG TABLET (FP) PO SCH (09:39)
[2017-01-13] MEDS: BACITRACIN 15 GM TUBE TOPICAL OINTMENT TP SCH (09:40)
[2017-01-13] MEDS: COLLAGENASE CLOSTRIDIUM HIST. 30 GRAMS TUBE TP SCH (09:42)
[2017-01-13] MEDS: SILVER SULFADIAZINE 1% TOP CREAM 50 GM JAR TP SCH ×2 (09:42→22:26)
[2017-01-13] MEDS: NYSTATIN 100,000 UNIT/GM TOPICAL CREAM 15 GM TUBE TP SCH ×2 (09:42→22:25)
[2017-01-13] MEDS: NYSTATIN POWDER 100,000 UNITS/GM - 15 GM TOPICAL POWDER TP SCH (09:42)
[2017-01-13] MEDS ORDERED: ALBUTEROL SO4 0.083% IH SOL 2.5 MG/3 ML VIAL.NEB. NEB PRN (09:55)
[2017-01-13] MEDS ORDERED: methylPREDNISolone NA SUCC 125 MG/2 ML VIAL ONE (09:56)
[2017-01-13] MEDS ORDERED: ALBUTEROL SO4 0.5 % INH SOLN 2.5 MG/0.5 ML VIAL.NEB. NEB PRN (10:11)
[2017-01-13] MEDS ORDERED: ACETYLCYSTEINE 20% 200MG/ML 30 ML VIAL *FOR ORAL / INH USE ONLY NEB ONE (10:15)
[2017-01-13] MEDS: methylPREDNISolone NA SUCC 40 MG/1 ML VIAL IVPB SCH ×2 (11:06→17:25)
[2017-01-13] MEDS: METOPROLOL TARTRATE 5 MG/5 ML VIAL IVPUSH SCH ×3 (12:07→22:27)
[2017-01-13] MEDS: ASPIRIN 300 MG SUPP.RECT RC SCH (12:09)
[2017-01-13] MEDS ORDERED: INSULIN DETEMIR 100 UNITS/ML MDV SQ SCH (12:24)
[2017-01-13] MEDS: FUROSEMIDE 40 MG/4 ML INJECTABLE VIAL IVPB SCH (13:42)
[2017-01-13] MEDS: AMINO ACIDS 4.25%/D5W 1,000 ML IV SCH (13:45)
--- NOTE | 2017-01-13 16:29 | PN ---
Teaching Attending Note Name of Resident: Kassandra Crawley ATTENDING PHYSICIAN STATEMENT I saw and evaluated the patient. I reviewed the resident's note and discussed the case with the resident. I agree with the resident's findings and plan as documented. SUBJECTIVE: Patient is feeling better, continues to have low saturation off oxygen. OBJECTIVE: Vital Signs Temperature 97.4 F L 01/13/17 14:40 Pulse Rate 63 01/13/17 14:40 Respiratory Rate 22 01/13/17 14:40 Blood Pressure 121/64 01/13/17 14:40 O2 Sat by Pulse Oximetry (%) 96 01/13/17 10:00 CBCD WBC 15.8 K/mm3 (4.0-10.0) H D 01/12/17 06:00 RBC 4.08 M/mm3 (4.00-5.60) 01/12/17 06:00 Hgb 12.3 GM/dL (11.7-16.9) 01/12/17 06:00 Hct 36.7 % (35.4-49) 01/12/17 06:00 MCV 90.0 fl (80-96) 01/12/17 06:00 MCHC 33.6 g/dl (32.0-35.9) 01/12/17 06:00 RDW 14.7 % (11.9-15.9) 01/12/17 06:00 Plt Count 103 K/MM3 (134-434) L D 01/12/17 06:00 MPV 9.5 fl (7.5-11.1) 01/12/17 06:00 CMP Sodium 144 mmol/L (136-145) 01/12/17 06:00 Potassium 3.8 mmol/L (3.5-5.1) D 01/12/17 06:00 Chloride 99 mmol/L (98-107) 01/12/17 06:00 Carbon Dioxide 33 mmol/L (21-32) H 01/12/17 06:00 Anion Gap 12 (8-16) 01/12/17 06:00 BUN 76 mg/dL (7-18) H 01/12/17 06:00 Creatinine 1.1 mg/dL (0.7-1.3) 01/12/17 06:00 Creat Clearance w eGFR > 60 (>60) 01/12/17 06:00 Random Glucose 163 mg/dL (74-106) H D 01/12/17 06:00 Calcium 7.7 mg/dL (8.5-10.1) L 01/12/17 06:00 Total Bilirubin 0.8 mg/dL (0.2-1.0) 01/12/17 06:00 AST 21 U/L (15-37) 01/12/17 06:00 ALT 36 U/L (12-78) 01/12/17 06:00 Alkaline Phosphatase 128 U/L (45-117) H 01/12/17 06:00 Total Protein 4.5 g/dl (6.4-8.2) L 01/12/17 06:00 Albumin 2.0 g/dl (3.4-5.0) L 01/12/17 06:00 CARDIAC ENZYMES Creatine Kinase 31 IU/L (39-308) L 12/21/16 14:15 Troponin I 0.03 ng/ml (0.00-0.05) 12/21/16 14:15 Current Medications Generic Name Dose Route Start Last Admin Trade Name Freq PRN Reason Stop Dose Admin Acetaminophen 650 mg 01/06/17 15:40 01/11/17 20:57 Tylenol - PO 650 mg Q6H PRN Administration FEVER OR PAIN Acetylcysteine 600 mg 01/13/17 22:00 Mucomyst 20 Oral / Inh Use Only* NEB BID JONAS Albuterol Sulfate 1 amp 01/13/17 22:00 Ventolin 0.083% Nebulizer Soln - NEB BID JONAS Albuterol Sulfate 1 amp 01/13/17 10:11 Ventolin 0.5% - NEB Q4H PRN SHORT OF BREATH/WHEEZING Aspirin 300 mg 01/13/17 10:00 01/13/17 12:09 Asa - RC 300 mg DAILY JONAS Administration Collagenase 1 applic 01/07/17 10:00 01/13/17 09:42 Santyl - TP Not Given DAILY JONAS Furosemide 20 mg 01/13/17 14:00 01/13/17 13:42 Lasix Injection - IVPB 20 mg BID@0600,1400 JONAS Administration Guaifenesin 10 ml 01/06/17 15:40 01/09/17 17:26 Robitussin Dm - PO 10 ml Q6H PRN Administration COUGH Heparin Sodium (Porcine) 5,000 unit 01/07/17 09:30 01/13/17 09:39 Heparin - SQ 5,000 unit BID JONAS Administration Amino Acids 1,000 mls @ 42 mls/hr 01/12/17 13:00 01/13/17 13:45 Clinimix - IV 42 mls/hr Q24H JONAS Administration Pantoprazole Sodium 100 mls @ 200 mls/hr 01/14/17 10:00 Protonix 40mg Ivpb (Pre-Docked) IVPB DAILY [facility] Insulin Aspart 1 vial 01/13/17 12:30 01/13/17 16:09 Novolog Vial Sliding Scale - SQ Not Given Q4H [facility] Protocol Insulin Detemir 7.5 units 01/13/17 12:24 Levemir Vial SQ HS JONAS Insulin Detemir 17 units 01/13/17 12:24 Levemir Vial SQ AM [facility] Lidocaine/Aluminum/Magnesium/Simeth 5 ml 01/06/17 18:00 01/13/17 12:30 Magic Mouthwash *Sjr Formula* - MM 5 ml Q6HPO [facility] Administration Magnesium Hydroxide 30 ml 01/06/17 15:40 Milk Of Magnesia - PO HS PRN CONSTIPATION Methylprednisolone Sodium Succinate 60 mg 01/13/17 10:00 01/13/17 11:06 Solu-Medrol - IVPB 60 mg Q8H-IV JONAS Administration Metoprolol Tartrate 2.5 mg 01/13/17 10:45 01/13/17 12:07 Lopressor Injection - IVPUSH Not Given Q6H [facility] Morphine Sulfate 1 mg 01/13/17 12:22 Morphine Injection - IVPB HS PRN Dyspnea Nystatin 1 applic 01/06/17 22:00 01/13/17 09:42 Mycostatin Cream - TP Not Given BID [facility] Polyethylene Glycol 17 gm 01/05/17 15:15 01/13/17 09:38 Miralax (For Daily Use) - PO Not Given DAILY [facility] Scopolamine HBr 1 patch 01/10/17 17:00 01/10/17 17:08 Transderm-Scop - TD Not Given Q72H [facility] Silver Sulfadiazine 1 applic 01/06/17 22:00 01/13/17 09:42 Silvadene - TP 1 applic BID [facility] Administration Sodium Chloride 2 spray 01/10/17 12:02 [place] Nasal [place] - NS TID PRN NASAL CONGESTION Home Medications Medication Instructions Recorded Aspirin [ASA -] 81 mg PO DAILY tab.chew 08/10/16 Budesonide [Pulmicort 0.25 mg 1 neb PO BID 12/16/16 Nebulizer -] Clopidogrel Bisulfate [Plavix -] 75 mg PO DAILY 12/16/16 Collagenase Clostridium Hist. 1 applic TP DAILY 12/16/16 [Santyl] Flunisolide 25 ml NS BID 12/16/16 Heparin - 5,000 unit SQ BID 12/16/16 Insulin Glargine,Hum.rec.anlog 40 units SQ HS 12/16/16 [Lantus (nf)] Insulin Lispro [Humalog] 0 unit SQ AC 12/16/16 Ipratropium/Albuterol Sulfate 3 ml IH QID 12/16/16 [Iprat-Albut 0.5-3(2.5) mg/3 ml] Oxycodone HCl/Acetaminophen 1 each PO QID PRN 12/16/16 [Oxycodone-Acetaminophen 5-325] Pantoprazole Sodium 40 mg PO DAILY 12/16/16 Prednisone [Deltasone -] 20 mg PO DAILY 12/16/16 Sennosides [Senokot] 8.6 mg PO HS 12/16/16 Tamsulosin HCl [Flomax] 0.4 mg PO DAILY 12/16/16 Acetaminophen [Tylenol .Regular 650 mg PO Q6H PRN #0 tablet 01/10/17 Strength -] Amino Acids/Protein Hydrolys 30 ml PO BID@0800,1730 packet 01/10/17 [Prosource No Carb Liquid Pkt] Ascorbic Acid [Vitamin C -] 250 mg PO BID tablet 01/10/17 Bacitracin - [Bacitracin Topical 1 applic TP DAILY tube 01/10/17 Ointment -] Collagenase Clostridium Hist. 1 applic TP DAILY tube 01/10/17 [Santyl -] Furosemide [Lasix -] 40 mg PO DAILY tablet 01/10/17 Heparin - 5,000 unit SQ BID vial 01/10/17 Insulin Sliding Scale [Novolog 1 vial SQ ACHS units 01/10/17 Vial Sliding Scale -] Mag Hydrox/Alh/Smc/Dpha/Lido 5 ml MM Q6HPO bottle 01/10/17 [Magic Mouthwash *Sjr Formula* -] Metoprolol Tartrate [Lopressor -] 12.5 mg PO TID tablet 01/10/17 Multivitamins [Multivit ([facility] 1 tab PO DAILY tab 01/10/17 Formulary)] Nystatin Powder [Nystop Powder -] 1 applic TP DAILY applic 01/10/17 Prednisone [Deltasone -] 40 mg PO DAILY tablet 01/10/17 Silver Sulfadiazine 1% Top Cr 1 applic TP BID jar 01/10/17 [Silvadene -] Simethicone [Mylicon -] 80 mg PO Q4H PRN #0 tab.chew 01/10/17 PE: per resident's note ASSESSMENT AND PLAN: Patient is a 81-year-old man with a significant past medical history of T2DM,CAD , s/p CABG,BPH, who was recently admitted at [facility] in July for Pneumonia, now in [facility] for physical therapy who presented to the emergency department via EMS for further evaluation of respiratory distress. Patient was made Inpatient hospice care. patient and patient's does not want the patient to be on Morphine except at night if needed prn. # Acute hypoxic respiratory failure due ILD and pneumonia on Oxygen continue, morphine at night only prn, On Solu medrol increased the dose to 60mh q8h prn. Requesting Hospice care. Palliative care nurse is on the case. Everything switched to IV meds. Also Clinimax was ordered. Also mucumyst and albuterol nebulizer is ordered. # Afib converted into NSR. continue Metoprolol 2.5mg IV q6h prn. # Diabetes Mellitus on Insulin sliding scale as per protocol # CAD s/p CABG Aspirin 300mg NM Daily # Tinea pedis Nystatin cream TP BID # Open wound ;Ulcer in the right lateral malleolus Collagenase TP Daily # DVT Prophylaxis: On Heparin 5000 U sq GI Px: Pantoprazole Code Status: DNR/DNI Patient is under Hospice care ;DNR/DNI
[2017-01-13] MEDS ORDERED: PT OWN MED DRAWER 7, Y5N ONE (17:18)
[2017-01-13] MEDS: SCOPOLAMINE HYDROBROMIDE 1 PATCH PATCH.TD72 TD SCH (17:27)
[2017-01-13] MEDS: ALBUTEROL SO4 0.083% IH SOL 2.5 MG/3 ML VIAL.NEB. NEB SCH (22:00)
[2017-01-13] MEDS ORDERED: FUROSEMIDE 40 MG/4 ML INJECTABLE VIAL IVPB SCH (22:00)
[2017-01-13] MEDS: ACETYLCYSTEINE 20% 200MG/ML 30 ML VIAL *FOR ORAL / INH USE ONLY NEB SCH (22:00)
[2017-01-14] MEDS: INSULIN SLIDING SCALE (NOVOLOG) 1 VIAL SQ SCH ×6 (01:04→23:10)
[2017-01-14] MEDS: methylPREDNISolone NA SUCC 40 MG/1 ML VIAL IVPB SCH ×3 (03:47→17:08)
[2017-01-14] MEDS: METOPROLOL TARTRATE 5 MG/5 ML VIAL IVPUSH SCH ×4 (04:28→23:11)
[2017-01-14] MEDS: morphine CARPU-JECT 2 MG/1 ML DISP.SYRIN IVPB PRN (04:41)
[2017-01-14] MEDS: MAG HYDROX/ALH/SMC/DPHA/LIDO 240 ML MOUTHWASH MM SCH ×4 (06:06→17:13)
[2017-01-14] MEDS: FUROSEMIDE 40 MG/4 ML INJECTABLE VIAL IVPB SCH ×2 (06:22→13:16)
[2017-01-14] MEDS ORDERED: FUROSEMIDE 40 MG/4 ML INJECTABLE VIAL IVPB SCH (10:00)
[2017-01-14] MEDS: PANTOPRAZOLE SODIUM 40MG/100 ML IVPB SCH (10:03)
[2017-01-14] MEDS: ASPIRIN 300 MG SUPP.RECT RC SCH (10:04)
[2017-01-14] MEDS: HEPARIN NA (PORCINE) 5,000 UNITS/ML 1ML VIAL SQ SCH ×2 (10:04→23:19)
[2017-01-14] MEDS: INSULIN DETEMIR 100 UNITS/ML MDV SQ SCH ×2 (10:04→23:11)
[2017-01-14] MEDS: COLLAGENASE CLOSTRIDIUM HIST. 30 GRAMS TUBE TP SCH (10:05)
[2017-01-14] MEDS: NYSTATIN 100,000 UNIT/GM TOPICAL CREAM 15 GM TUBE TP SCH ×2 (10:05→23:07)
[2017-01-14] MEDS: SILVER SULFADIAZINE 1% TOP CREAM 50 GM JAR TP SCH ×2 (10:06→23:11)
[2017-01-14] MEDS: ACETYLCYSTEINE 20% 200MG/ML 30 ML VIAL *FOR ORAL / INH USE ONLY NEB SCH ×2 (10:10→22:30)
[2017-01-14] MEDS: ALBUTEROL SO4 0.083% IH SOL 2.5 MG/3 ML VIAL.NEB. NEB SCH ×2 (10:11→22:30)
[2017-01-14] MEDS: POLYETHYLENE GLYCOL 3350 119 GM BTL PO SCH (10:54)
[2017-01-14] MEDS: AMINO ACIDS 4.25%/D5W 1,000 ML IV SCH ×2 (13:17→23:13)
--- NOTE | 2017-01-14 15:29 | PN ---
Physical Exam: SUBJECTIVE: Patient seen and examined Patient is feeling better, given one dose of morphine last night, feeling better since slept well. OBJECTIVE: Vital Signs Temperature 97.6 F 01/14/17 14:02 Pulse Rate 64 01/14/17 14:02 Respiratory Rate 19 01/14/17 14:02 Blood Pressure 119/59 01/14/17 14:02 O2 Sat by Pulse Oximetry (%) 99 01/14/17 11:14 GENERAL: The patient is awake, alert, and fully oriented, in no acute distress. HEAD: Normal with no signs of trauma. EYES: PERRL, extraocular movements intact, sclera anicteric, conjunctiva clear. ENT: Ears normal, oropharynx clear without exudates, moist mucous membranes. NECK: Trachea midline, full range of motion, supple. LUNGS: decreased Breath sounds BL, positive for crackles bl , no wheezes, mild accessory muscle use on exertion. HEART: Regular rate and rhythm, S1, S2 without murmur, rub or gallop. ABDOMEN: Soft, nontender, nondistended, normoactive bowel sounds, no guarding, no rebound, no hepatosplenomegaly, no masses. EXTREMITIES: 2+ pulses, warm, well-perfused, no edema. NEUROLOGICAL: Cranial nerves II through XII grossly intact. Normal speech, gait not observed. PSYCH: Normal mood, normal affect. SKIN: Warm, dry, normal turgor, no rashes or lesions noted CBCD WBC 15.8 K/mm3 (4.0-10.0) H D 01/12/17 06:00 RBC 4.08 M/mm3 (4.00-5.60) 01/12/17 06:00 Hgb 12.3 GM/dL (11.7-16.9) 01/12/17 06:00 Hct 36.7 % (35.4-49) 01/12/17 06:00 MCV 90.0 fl (80-96) 01/12/17 06:00 MCHC 33.6 g/dl (32.0-35.9) 01/12/17 06:00 RDW 14.7 % (11.9-15.9) 01/12/17 06:00 Plt Count 103 K/MM3 (134-434) L D 01/12/17 06:00 MPV 9.5 fl (7.5-11.1) 01/12/17 06:00 CMP Sodium 144 mmol/L (136-145) 01/12/17 06:00 Potassium 3.8 mmol/L (3.5-5.1) D 01/12/17 06:00 Chloride 99 mmol/L (98-107) 01/12/17 06:00 Carbon Dioxide 33 mmol/L (21-32) H 01/12/17 06:00 Anion Gap 12 (8-16) 01/12/17 06:00 BUN 76 mg/dL (7-18) H 01/12/17 06:00 Creatinine 1.1 mg/dL (0.7-1.3) 01/12/17 06:00 Creat Clearance w eGFR > 60 (>60) 01/12/17 06:00 Random Glucose 163 mg/dL (74-106) H D 01/12/17 06:00 Calcium 7.7 mg/dL (8.5-10.1) L 01/12/17 06:00 Total Bilirubin 0.8 mg/dL (0.2-1.0) 01/12/17 06:00 AST 21 U/L (15-37) 01/12/17 06:00 ALT 36 U/L (12-78) 01/12/17 06:00 Alkaline Phosphatase 128 U/L (45-117) H 01/12/17 06:00 Total Protein 4.5 g/dl (6.4-8.2) L 01/12/17 06:00 Albumin 2.0 g/dl (3.4-5.0) L 01/12/17 06:00 CARDIAC ENZYMES Creatine Kinase 31 IU/L (39-308) L 12/21/16 14:15 Troponin I 0.03 ng/ml (0.00-0.05) 12/21/16 14:15 Laboratory Results - last 24 hr 01/13/17 01/13/17 01/14/17 15:40 22:22 03:49 POC Glucometer 140 183 147 01/14/17 01/14/17 08:07 11:55 POC Glucometer 140 162 Active Medications Generic Name Dose Route Start Last Admin Trade Name Freq PRN Reason Stop Dose Admin Acetaminophen 650 mg 01/06/17 15:40 01/11/17 20:57 Tylenol - PO 650 mg Q6H PRN Administration FEVER OR PAIN Acetylcysteine 600 mg 01/13/17 22:00 01/14/17 10:10 Mucomyst 20 Oral / Inh Use Only* NEB Not Given BID JONAS Albuterol Sulfate 1 amp 01/13/17 22:00 01/14/17 10:11 Ventolin 0.083% Nebulizer Soln - NEB Not Given BID JONAS Albuterol Sulfate 1 amp 01/13/17 10:11 Ventolin 0.5% - NEB Q4H PRN SHORT OF BREATH/WHEEZING Aspirin 300 mg 01/13/17 10:00 01/14/17 10:04 Asa - RC 300 mg DAILY JONAS Administration Collagenase 1 applic 01/07/17 10:00 01/14/17 10:05 Santyl - TP Not Given DAILY JONAS Furosemide 20 mg 01/13/17 14:00 01/14/17 13:16 Lasix Injection - IVPB 20 mg BID@0600,1400 JONAS Administration Guaifenesin 10 ml 01/06/17 15:40 01/09/17 17:26 Robitussin Dm - PO 10 ml Q6H PRN Administration COUGH Heparin Sodium (Porcine) 5,000 unit 01/07/17 09:30 01/14/17 10:04 Heparin - SQ 5,000 unit BID JONAS Administration Amino Acids 1,000 mls @ 42 mls/hr 01/12/17 13:00 01/14/17 13:17 Clinimix - IV 42 mls/hr Q24H JONAS Administration Pantoprazole Sodium 100 mls @ 200 mls/hr 01/14/17 10:00 01/14/17 10:03 Protonix 40mg Ivpb (Pre-Docked) IVPB 200 mls/hr DAILY JONAS Administration Insulin Aspart 1 vial 01/13/17 12:30 01/14/17 11:57 Novolog Vial Sliding Scale - SQ Not Given Q4H [facility] Protocol Insulin Detemir 7.5 units 01/13/17 12:24 01/13/17 22:24 Levemir Vial SQ 7.5 units HS JONAS Administration Insulin Detemir 20 units 01/13/17 21:35 01/14/17 10:04 Levemir Vial SQ Not Given AM JONAS Lidocaine/Aluminum/Magnesium/Simeth 5 ml 01/06/17 18:00 01/14/17 11:56 Magic Mouthwash *Sjr Formula* - MM 5 ml Q6HPO JONAS Administration Magnesium Hydroxide 30 ml 01/06/17 15:40 Milk Of Magnesia - PO HS PRN CONSTIPATION Methylprednisolone Sodium Succinate 60 mg 01/13/17 10:00 01/14/17 10:03 Solu-Medrol - IVPB 60 mg Q8H-IV JONAS Administration Metoprolol Tartrate 2.5 mg 01/13/17 10:45 01/14/17 10:03 Lopressor Injection - IVPUSH 2.5 mg Q6H JONAS Administration Morphine Sulfate 1 mg 01/13/17 12:22 01/14/17 04:41 Morphine Injection - IVPB 1 mg HS PRN Administration Dyspnea Nystatin 1 applic 01/06/17 22:00 01/14/17 10:05 Mycostatin Cream - TP Not Given BID JONAS Polyethylene Glycol 17 gm 01/05/17 15:15 01/14/17 10:54 Miralax (For Daily Use) - PO Not Given DAILY JONAS Scopolamine HBr 1 patch 01/10/17 17:00 01/13/17 17:27 Transderm-Scop - TD 1 patch Q72H JONAS Administration Silver Sulfadiazine 1 applic 01/06/17 22:00 01/14/17 10:06 Silvadene - TP Not Given BID JONAS Sodium Chloride 2 spray 01/10/17 12:02 01/13/17 23:25 [place] Nasal [place] - NS 2 sprays TID PRN Administration NASAL CONGESTION Home Medications Medication Instructions Recorded Aspirin [ASA -] 81 mg PO DAILY tab.chew 08/10/16 Budesonide [Pulmicort 0.25 mg 1 neb PO BID 12/16/16 Nebulizer -] Clopidogrel Bisulfate [Plavix -] 75 mg PO DAILY 12/16/16 Collagenase Clostridium Hist. 1 applic TP DAILY 12/16/16 [Santyl] Flunisolide 25 ml NS BID 12/16/16 Heparin - 5,000 unit SQ BID 12/16/16 Insulin Glargine,Hum.rec.anlog 40 units SQ HS 12/16/16 [Lantus (nf)] Insulin Lispro [Humalog] 0 unit SQ AC 12/16/16 Ipratropium/Albuterol Sulfate 3 ml IH QID 12/16/16 [Iprat-Albut 0.5-3(2.5) mg/3 ml] Oxycodone HCl/Acetaminophen 1 each PO QID PRN 12/16/16 [Oxycodone-Acetaminophen 5-325] Pantoprazole Sodium 40 mg PO DAILY 12/16/16 Prednisone [Deltasone -] 20 mg PO DAILY 12/16/16 Sennosides [Senokot] 8.6 mg PO HS 12/16/16 Tamsulosin HCl [Flomax] 0.4 mg PO DAILY 12/16/16 Acetaminophen [Tylenol .Regular 650 mg PO Q6H PRN #0 tablet 01/10/17 Strength -] Amino Acids/Protein Hydrolys 30 ml PO BID@0800,1730 packet 01/10/17 [Prosource No Carb Liquid Pkt] Ascorbic Acid [Vitamin C -] 250 mg PO BID tablet 01/10/17 Bacitracin - [Bacitracin Topical 1 applic TP DAILY tube 01/10/17 Ointment -] Collagenase Clostridium Hist. 1 applic TP DAILY tube 01/10/17 [Santyl -] Furosemide [Lasix -] 40 mg PO DAILY tablet 01/10/17 Heparin - 5,000 unit SQ BID vial 01/10/17 Insulin Sliding Scale [Novolog 1 vial SQ ACHS units 01/10/17 Vial Sliding Scale -] Mag Hydrox/Alh/Smc/Dpha/Lido 5 ml MM Q6HPO bottle 01/10/17 [Magic Mouthwash *Sjr Formula* -] Metoprolol Tartrate [Lopressor -] 12.5 mg PO TID tablet 01/10/17 Multivitamins [Multivit ([facility] 1 tab PO DAILY tab 01/10/17 Formulary)] Nystatin Powder [Nystop Powder -] 1 applic TP DAILY applic 01/10/17 Prednisone [Deltasone -] 40 mg PO DAILY tablet 01/10/17 Silver Sulfadiazine 1% Top Cr 1 applic TP BID jar 01/10/17 [Silvadene -] Simethicone [Mylicon -] 80 mg PO Q4H PRN #0 tab.chew 01/10/17 ASSESSMENT/PLAN: Patient is a 81-year-old man with a significant past medical history of T2DM,CAD , s/p CABG,BPH, who was recently admitted at [facility] in July for Pneumonia, now in [facility] for physical therapy who presented to the emergency department via EMS for further evaluation of respiratory distress. # Acute hypoxic respiratory failure due ILD and pneumonia on Oxygen continue, Bipap at nights and or prn, morphine at night only prn, On Solu medrol increased the dose IV 60mg q8h prn. On Hospice care at this time, Palliative care nurse is on the case. Everything switched to IV meds. since desating off oxygen. Also Clinimax was ordered will continue. Also mucomyst and albuterol nebulizer is ordered. Will increase the dose of Lasix 40mg IV bid. # Afib converted into NSR. continue Metoprolol 2.5mg IV q6h prn. # Diabetes Mellitus on Insulin sliding scale as per protocol # CAD s/p CABG Aspirin 325 po daily , able to swallow the pills. # Tinea pedis Nystatin cream TP BID # Open wound ;Ulcer in the right lateral malleolus Collagenase TP Daily # DVT Prophylaxis: On Heparin 5000 U sq GI Px: Pantoprazole Code Status: DNR/DNI Patient is under Hospice care ;DNR/DNI Patient was made Inpatient hospice care. patient and patient's does not want the patient to be on Morphine except at night if needed prn. Visit type - Emergency Visit Emergency Visit: Yes ED Registration Date: 12/16/16 Care time: The patient presented to the Emergency Department on the above date and was hospitalized for further evaluation of their emergent condition. - New Patient This patient is new to me today: No - Critical Care Critical Care patient: No
[2017-01-15] MEDS: MAG HYDROX/ALH/SMC/DPHA/LIDO 240 ML MOUTHWASH MM SCH ×4 (03:13→17:37)
[2017-01-15] MEDS: INSULIN SLIDING SCALE (NOVOLOG) 1 VIAL SQ SCH ×7 (03:13→22:35)
[2017-01-15] MEDS: methylPREDNISolone NA SUCC 40 MG/1 ML VIAL IVPB SCH ×3 (03:30→17:37)
[2017-01-15] MEDS: METOPROLOL TARTRATE 5 MG/5 ML VIAL IVPUSH SCH ×4 (06:39→22:35)
[2017-01-15] MEDS: INSULIN DETEMIR 100 UNITS/ML MDV SQ SCH ×2 (06:40→22:36)
[2017-01-15] MEDS: FUROSEMIDE 40 MG/4 ML INJECTABLE VIAL IVPB SCH ×2 (06:40→14:20)
[2017-01-15] MEDS ORDERED: hydrOXYzine HCL 10 MG/5 ML LIQUID BULK BOTTLE PO PRN (09:09)
[2017-01-15] MEDS ORDERED: hydrOXYzine HCL 10 MG/5 ML LIQUID BULK BOTTLE PO SCH (09:15)
--- NOTE | 2017-01-15 09:27 | PN ---
Physical Exam: SUBJECTIVE: Patient seen and examined at bed side this morning. Patient said he feels better today. Complained of nausea and requesting for antiemetics. Mentions that has sob even while talking a full sentence. at bed side, said patient moved his bowels. OBJECTIVE: Vital Signs Period Temp Pulse Resp BP Sys/Blanca Pulse Ox Last 24 Hr 96.2 F-97.6 F 63-84 18-22 114-144/59-78 99-100 GENERAL: Elderly male, lying in bed, is awake, alert, and fully oriented, in mild respiratory distress. Currie catheter in place. HEAD: Normal with no signs of trauma. EYES: EOM intact, no pallor or icterus. ENT: Ears normal, moist mucous membranes. NECK: Trachea midline, full range of motion, supple. LUNGS: Accessory muscle use +, Breath sounds decreased bilaterally at the bases , no wheeze. HEART: Regular rate and rhythm, S1, S2 with systolic murmur. ABDOMEN: Soft, nontender, nondistended, normoactive bowel sounds, no guarding, no rebound, no hepatosplenomegaly, no masses. EXTREMITIES: 2+ pulses, warm, well-perfused, no edema. Dressing applied over the wound on the right ankle. NEUROLOGICAL: No facial droop, Bulk/tone normal, power/CN-unable to assess because of respiratory distress. Normal speech but cannot speak a full sentence due to sob, gait not observed. PSYCH: Normal mood, normal affect. SKIN: Warm, dry, normal turgor, no rashes or lesions noted Laboratory Results - last 24 hr 01/14/17 01/14/17 01/14/17 11:55 16:42 23:09 POC Glucometer 162 194 321 01/15/17 01/15/17 02:47 06:03 POC Glucometer 361 360 Active Medications Generic Name Dose Route Start Last Admin Trade Name Freq PRN Reason Stop Dose Admin Acetaminophen 650 mg 01/06/17 15:40 01/11/17 20:57 Tylenol - PO 650 mg Q6H PRN Administration FEVER OR PAIN Acetylcysteine 600 mg 01/13/17 22:00 01/14/17 22:30 Mucomyst 20 Oral / Inh Use Only* NEB Not Given BID JONAS Albuterol Sulfate 1 amp 01/13/17 22:00 01/14/17 22:30 Ventolin 0.083% Nebulizer Soln - NEB Not Given BID JONAS Albuterol Sulfate 1 amp 01/13/17 10:11 Ventolin 0.5% - NEB Q4H PRN SHORT OF BREATH/WHEEZING Aspirin 300 mg 01/13/17 10:00 01/14/17 10:04 Asa - RC 300 mg DAILY JONAS Administration Collagenase 1 applic 01/07/17 10:00 01/14/17 10:05 Santyl - TP Not Given DAILY [facility] Furosemide 40 mg 01/15/17 06:00 01/15/17 06:40 Lasix Injection - IVPB 40 mg BID@0600,1400 JONAS Administration Guaifenesin 10 ml 01/06/17 15:40 01/09/17 17:26 Robitussin Dm - PO 10 ml Q6H PRN Administration COUGH Heparin Sodium (Porcine) 5,000 unit 01/07/17 09:30 01/14/17 23:19 Heparin - SQ Not Given BID [facility] Hydroxyzine HCl 25 mg 01/15/17 09:09 Atarax Liquid - PO 01/16/17 09:14 Q6H PRN NAUSEA AND/OR VOMITING Amino Acids 1,000 mls @ 42 mls/hr 01/12/17 13:00 01/14/17 23:13 Clinimix - IV 42 mls/hr Q24H JONAS Administration Pantoprazole Sodium 100 mls @ 200 mls/hr 01/14/17 10:00 01/14/17 10:03 Protonix 40mg Ivpb (Pre-Docked) IVPB 200 mls/hr DAILY JONAS Administration Insulin Aspart 1 vial 01/13/17 12:30 01/15/17 06:10 Novolog Vial Sliding Scale - SQ Not Given Q4H [facility] Protocol Insulin Detemir 7.5 units 01/13/17 12:24 01/14/17 23:11 Levemir Vial SQ 7.5 units HS JONAS Administration Insulin Detemir 20 units 01/13/17 21:35 01/15/17 06:40 Levemir Vial SQ 20 units AM JONAS Administration Lidocaine/Aluminum/Magnesium/Simeth 5 ml 01/06/17 18:00 01/15/17 06:40 Magic Mouthwash *Sjr Formula* - MM 5 ml Q6HPO JONAS Administration Magnesium Hydroxide 30 ml 01/06/17 15:40 Milk Of Magnesia - PO HS PRN CONSTIPATION Methylprednisolone Sodium Succinate 60 mg 01/13/17 10:00 01/15/17 03:30 Solu-Medrol - IVPB 60 mg Q8H-IV JONAS Administration Metoprolol Tartrate 2.5 mg 01/13/17 10:45 01/15/17 06:39 Lopressor Injection - IVPUSH 2.5 mg Q6H JONAS Administration Morphine Sulfate 1 mg 01/13/17 12:22 01/14/17 04:41 Morphine Injection - IVPB 1 mg HS PRN Administration Dyspnea Nystatin 1 applic 01/06/17 22:00 01/14/17 23:07 Mycostatin Cream - TP Not Given BID JONAS Polyethylene Glycol 17 gm 01/05/17 15:15 01/14/17 10:54 Miralax (For Daily Use) - PO Not Given DAILY JONAS Scopolamine HBr 1 patch 01/10/17 17:00 01/13/17 17:27 Transderm-Scop - TD 1 patch Q72H JONAS Administration Silver Sulfadiazine 1 applic 01/06/17 22:00 01/14/17 23:11 Silvadene - TP 1 applic BID JONAS Administration Sodium Chloride 2 spray 01/10/17 12:02 01/13/17 23:25 [place] Nasal [place] - NS 2 sprays TID PRN Administration NASAL CONGESTION CXR : AP portable chest: Shortness of breath. Since the prior study of , the diffuse interstitial and alveolar changes persist compatible with a mixture of congestion and infiltrate. Again noted is the prominent mediastinum with sternal sutures and clips. Some of the sternal sutures are broken. Impression: No significant change. ASSESSMENT/PLAN: Patient is a 81-year-old man with a significant past medical history of diabetes mellitus, coronary artery disease status post CABG, benign prostate hyperplasia who was recently admitted at [facility] in July for Pneumonia, now in [facility] for physical therapy who presented to the emergency department via EMS for further evaluation of respiratory distress. # Acute hypoxic respiratory failure likely secondary to ILD and pneumonia Breathing has gotten better, thinks the sputum is stuck in the chest, stat CXR was ordered- Infiltrates vs congestion Added IV Ceftriaxone 2gm Daily and IV Azithromycin 500mg Daily. Continue Oxygen @ 2L (Maintain saturation > 90 %-95%), Bipap as needed. Continue Solumedrol 60mg IV Q8H Guaifenesis DM 10mg PO Q6H Mucomist Neb Albuterol Q4H PRN IV Morphine 1mg HS PRN (Discussed with the patient and his , they agreed) # Diabetes Mellitus Insulin sliding scale Finger stick glucose monitoring Reduced the levemir dose- Levemir 7.5 u sq HS and Levemir 17 U sq AM # Afib converted into NSR. Continue 2.5mg Q6H # CAD s/p CABG Continue RI Aspirin 300mg Daily # Constipation Colace Daily # Tinea pedis Nystatin creatm TP BID # Ulcer in the right lateral malleolus Collagenase TP Daily # FEN IV Clinimix 42 mls/hr Electrolytes to be repeated tomorrow NPO due to aspiration precautions. # Prophylaxis For DVT: On Heparin 5000 U sq For GI: On IV Pantoprazole 40mg BID Daily # Code Status: DNR/DNI Illness, Investigation and Plan of care explained to the patient and his . They verbalized understanding. Labs to be drawn once a week as per family's request. Case seen and discussed with Dr. Chavira. Visit type - Emergency Visit Emergency Visit: Yes ED Registration Date: 12/16/16 Care time: The patient presented to the Emergency Department on the above date and was hospitalized for further evaluation of their emergent condition. - New Patient This patient is new to me today: No - Critical Care Critical Care patient: No - Discharge Referral Referred to [facility] No
[2017-01-15] MEDS ORDERED: AMINO ACIDS 4.25%/D5W 1,000 ML IV SCH (09:47)
[2017-01-15] MEDS: ACETYLCYSTEINE 20% 200MG/ML 30 ML VIAL *FOR ORAL / INH USE ONLY NEB SCH ×2 (10:37→22:10)
[2017-01-15] MEDS: ALBUTEROL SO4 0.083% IH SOL 2.5 MG/3 ML VIAL.NEB. NEB SCH ×2 (10:37→22:10)
[2017-01-15] MEDS: PANTOPRAZOLE SODIUM 40MG/100 ML IVPB SCH (10:41)
[2017-01-15] MEDS: NYSTATIN 100,000 UNIT/GM TOPICAL CREAM 15 GM TUBE TP SCH ×2 (10:42→22:35)
[2017-01-15] MEDS: HEPARIN NA (PORCINE) 5,000 UNITS/ML 1ML VIAL SQ SCH ×2 (10:42→22:36)
[2017-01-15] MEDS: AMINO ACIDS 4.25%/D5W 1,000 ML IV SCH (10:42)
[2017-01-15] MEDS: POLYETHYLENE GLYCOL 3350 119 GM BTL PO SCH (10:42)
[2017-01-15] MEDS ORDERED: INSULIN (NOVOLOG) ASPART 100 UNITS/ML 10ML VIAL ONE (10:54)
[2017-01-15] MEDS ORDERED: PT OWN MED DRAWER 7, Y5N ONE (12:44)
[2017-01-15] MEDS: ASPIRIN 300 MG SUPP.RECT RC SCH (13:30)
[2017-01-15] MEDS: CEFTRIAXONE 100 ML IVPB SCH (13:30)
[2017-01-15] MEDS: AZITHROMYCIN IVPB 250 ML IVPB SCH (13:30)
[2017-01-15] MEDS: SILVER SULFADIAZINE 1% TOP CREAM 50 GM JAR TP SCH ×2 (13:42→22:36)
[2017-01-15] MEDS: COLLAGENASE CLOSTRIDIUM HIST. 30 GRAMS TUBE TP SCH (13:42)
--- NOTE | 2017-01-15 20:22 | PN ---
Teaching Attending Note Name of Resident: Kassandra Crawley ATTENDING PHYSICIAN STATEMENT I saw and evaluated the patient. I reviewed the resident's note and discussed the case with the resident. I agree with the resident's findings and plan as documented. SUBJECTIVE: Patient is doing better but still shortnessof breath. OBJECTIVE: Vital Signs Temperature 96.7 F L 01/15/17 17:00 Pulse Rate 64 01/15/17 17:00 Respiratory Rate 18 01/15/17 17:00 Blood Pressure 128/66 01/15/17 17:00 O2 Sat by Pulse Oximetry (%) 100 01/15/17 10:55 CBCD WBC 15.8 K/mm3 (4.0-10.0) H D 01/12/17 06:00 RBC 4.08 M/mm3 (4.00-5.60) 01/12/17 06:00 Hgb 12.3 GM/dL (11.7-16.9) 01/12/17 06:00 Hct 36.7 % (35.4-49) 01/12/17 06:00 MCV 90.0 fl (80-96) 01/12/17 06:00 MCHC 33.6 g/dl (32.0-35.9) 01/12/17 06:00 RDW 14.7 % (11.9-15.9) 01/12/17 06:00 Plt Count 103 K/MM3 (134-434) L D 01/12/17 06:00 MPV 9.5 fl (7.5-11.1) 01/12/17 06:00 CMP Sodium 144 mmol/L (136-145) 01/12/17 06:00 Potassium 3.8 mmol/L (3.5-5.1) D 01/12/17 06:00 Chloride 99 mmol/L (98-107) 01/12/17 06:00 Carbon Dioxide 33 mmol/L (21-32) H 01/12/17 06:00 Anion Gap 12 (8-16) 01/12/17 06:00 BUN 76 mg/dL (7-18) H 01/12/17 06:00 Creatinine 1.1 mg/dL (0.7-1.3) 01/12/17 06:00 Creat Clearance w eGFR > 60 (>60) 01/12/17 06:00 Random Glucose 163 mg/dL (74-106) H D 01/12/17 06:00 Calcium 7.7 mg/dL (8.5-10.1) L 01/12/17 06:00 Total Bilirubin 0.8 mg/dL (0.2-1.0) 01/12/17 06:00 AST 21 U/L (15-37) 01/12/17 06:00 ALT 36 U/L (12-78) 01/12/17 06:00 Alkaline Phosphatase 128 U/L (45-117) H 01/12/17 06:00 Total Protein 4.5 g/dl (6.4-8.2) L 01/12/17 06:00 Albumin 2.0 g/dl (3.4-5.0) L 01/12/17 06:00 CARDIAC ENZYMES Creatine Kinase 31 IU/L (39-308) L 12/21/16 14:15 Troponin I 0.03 ng/ml (0.00-0.05) 12/21/16 14:15 Current Medications Generic Name Dose Route Start Last Admin Trade Name Freq PRN Reason Stop Dose Admin Acetaminophen 650 mg 01/06/17 15:40 01/11/17 20:57 Tylenol - PO 650 mg Q6H PRN Administration FEVER OR PAIN Acetylcysteine 600 mg 01/13/17 22:00 01/15/17 10:37 Mucomyst 20 Oral / Inh Use Only* NEB Not Given BID JONAS Albuterol Sulfate 1 amp 01/13/17 22:00 01/15/17 10:37 Ventolin 0.083% Nebulizer Soln - NEB Not Given BID JONAS Albuterol Sulfate 1 amp 01/13/17 10:11 Ventolin 0.5% - NEB Q4H PRN SHORT OF BREATH/WHEEZING Aspirin 300 mg 01/13/17 10:00 01/15/17 13:30 Asa - RC 300 mg DAILY JONAS Administration Collagenase 1 applic 01/07/17 10:00 01/15/17 13:42 Santyl - TP Not Given DAILY JONAS Furosemide 40 mg 01/15/17 06:00 01/15/17 14:20 Lasix Injection - IVPB 40 mg BID@0600,1400 JONAS Administration Guaifenesin 10 ml 01/06/17 15:40 01/09/17 17:26 Robitussin Dm - PO 10 ml Q6H PRN Administration COUGH Heparin Sodium (Porcine) 5,000 unit 01/07/17 09:30 01/15/17 10:42 Heparin - SQ Not Given BID JONAS Pantoprazole Sodium 100 mls @ 200 mls/hr 01/14/17 10:00 01/15/17 10:41 Protonix 40mg Ivpb (Pre-Docked) IVPB 200 mls/hr DAILY JONAS Administration Azithromycin 250 mls @ 250 mls/hr 01/15/17 10:00 01/15/17 13:30 Zithromax 500mg Ivpb (Pre-Docked) IVPB 250 mls/hr DAILY JONAS Administration Ceftriaxone Sodium 100 mls @ 200 mls/hr 01/15/17 10:00 01/15/17 13:30 Rocephin 2gm Ivpb (Pre-Docked) IVPB 200 mls/hr DAILY JONAS Administration Amino Acids 1,000 mls @ 42 mls/hr 01/15/17 09:54 01/15/17 10:42 Clinimix - IV 42 mls/hr Q24H JONAS Administration Insulin Aspart 1 vial 01/13/17 12:30 01/15/17 17:37 Novolog Vial Sliding Scale - SQ 4 units Q4H JONAS Administration Protocol Insulin Detemir 7.5 units 01/13/17 12:24 01/14/17 23:11 Levemir Vial SQ 7.5 units HS JONAS Administration Insulin Detemir 20 units 01/13/17 21:35 01/15/17 06:40 Levemir Vial SQ 20 units AM JONAS Administration Lidocaine/Aluminum/Magnesium/Simeth 5 ml 01/06/17 18:00 01/15/17 17:37 Magic Mouthwash *Sjr Formula* - MM 5 ml Q6HPO JONAS Administration Methylprednisolone Sodium Succinate 60 mg 01/13/17 10:00 01/15/17 17:37 Solu-Medrol - IVPB 60 mg Q8H-IV JONAS Administration Metoprolol Tartrate 2.5 mg 01/15/17 15:05 01/15/17 15:59 Lopressor Injection - IVPUSH Not Given Q6H JONAS Morphine Sulfate 1 mg 01/13/17 12:22 01/14/17 04:41 Morphine Injection - IVPB 1 mg HS PRN Administration Dyspnea Nystatin 1 applic 01/06/17 22:00 01/15/17 10:42 Mycostatin Cream - TP 1 applic BID JONAS Administration Polyethylene Glycol 17 gm 01/05/17 15:15 01/15/17 10:42 Miralax (For Daily Use) - PO Not Given DAILY JONAS Scopolamine HBr 1 patch 01/10/17 17:00 01/13/17 17:27 Transderm-Scop - TD 1 patch Q72H JONAS Administration Silver Sulfadiazine 1 applic 01/06/17 22:00 01/15/17 13:42 Silvadene - TP Not Given BID JONAS Sodium Chloride 2 spray 01/10/17 12:02 01/13/17 23:25 [place] Nasal [place] - NS 2 sprays TID PRN Administration NASAL CONGESTION ASSESSMENT AND PLAN: Patient is a 81-year-old man with a significant past medical history of T2DM,CAD , s/p CABG,BPH, who was recently admitted at [facility] in July for Pneumonia, now in [facility] for physical therapy who presented to the emergency department via EMS for further evaluation of respiratory distress. Patient continues to be hypoxic off NR, but sating 97% on 100% NR. On hospice care. # Acute hypoxic respiratory failure due ILD and pneumonia on Oxygen continue, Bipap at nights and or prn, morphine at night only prn, On Solu medrol increased the dose IV 60mg q8h prn. On Hospice care at this time, Palliative care nurse is on the case. Everything switched to IV meds. since desating off oxygen. Also Clinimax was ordered will continue. Also mucomyst and albuterol nebulizer is ordered. Will increase the dose of Lasix 40mg IV bid. # Afib converted into NSR. continue Metoprolol 2.5mg IV q6h prn. # Diabetes Mellitus on Insulin sliding scale as per protocol # CAD s/p CABG Aspirin 325 po daily , able to swallow the pills. # Tinea pedis Nystatin cream TP BID # Open wound ;Ulcer in the right lateral malleolus Collagenase TP Daily # DVT Prophylaxis: On Heparin 5000 U sq GI Px: Pantoprazole Code Status: DNR/DNI Patient is under Hospice care ;DNR/DNI Patient was made Inpatient hospice care. patient and patient's does not want the patient to be on Morphine except at night if needed prn.
[2017-01-16] MEDS: INSULIN SLIDING SCALE (NOVOLOG) 1 VIAL SQ SCH ×7 (00:20→21:53)
[2017-01-16] MEDS: morphine CARPU-JECT 2 MG/1 ML DISP.SYRIN IVPB PRN (00:35)
[2017-01-16] MEDS: MAG HYDROX/ALH/SMC/DPHA/LIDO 240 ML MOUTHWASH MM SCH ×4 (03:26→18:01)
[2017-01-16] MEDS: methylPREDNISolone NA SUCC 40 MG/1 ML VIAL IVPB SCH ×3 (03:30→17:27)
[2017-01-16] MEDS: METOPROLOL TARTRATE 5 MG/5 ML VIAL IVPUSH SCH ×4 (03:58→21:54)
[2017-01-16] MEDS: INSULIN DETEMIR 100 UNITS/ML MDV SQ SCH ×2 (06:31→21:54)
[2017-01-16] MEDS: FUROSEMIDE 40 MG/4 ML INJECTABLE VIAL IVPB SCH ×2 (06:31→14:15)
[2017-01-16 08:27] LABS: ANION GAP 12 (8-16); CO2 33 mmol/L (21-32); GLUCOSE,RANDOM 270 mg/dL (74-106)
[2017-01-16 08:28] LABS: BASOPHIL 0.1 % (0-2.0); MCH 30.5 pg (25.7-33.7); MCHC 33.8 g/dl (32.0-35.9); MEAN CELL VOLUME 90.2 fl (80-96); MEAN PLT VOLUME 10.4 fl (7.5-11.1); PLATELET COUNT 69 K/MM3 (134-434); RDW 14.9 % (11.9-15.9); WHITE BLOOD COUNT 9.1 K/mm3 (4.0-10.0)
[2017-01-16 08:31] LABS: ALK PHOS 130 U/L (45-117); BILIRUBIN,TOTAL 0.7 mg/dL (0.2-1.0); CREATININE 1.1 mg/dL (0.7-1.3); PHOSPHOROUS 3.5 mg/dL (2.5-4.9); SGOT/AST 26 U/L (15-37); SGPT/ALT 40 U/L (12-78); TOT PROT 4.7 g/dl (6.4-8.2)
[2017-01-16] MEDS: CEFTRIAXONE 100 ML IVPB SCH (09:46)
[2017-01-16] MEDS: PANTOPRAZOLE SODIUM 40MG/100 ML IVPB SCH (09:46)
[2017-01-16] MEDS: ACETYLCYSTEINE 20% 200MG/ML 30 ML VIAL *FOR ORAL / INH USE ONLY NEB SCH (10:04)
[2017-01-16] MEDS: ALBUTEROL SO4 0.083% IH SOL 2.5 MG/3 ML VIAL.NEB. NEB SCH (10:05)
[2017-01-16] MEDS: HEPARIN NA (PORCINE) 5,000 UNITS/ML 1ML VIAL SQ SCH ×2 (11:09→21:54)
[2017-01-16] MEDS: NYSTATIN 100,000 UNIT/GM TOPICAL CREAM 15 GM TUBE TP SCH ×2 (11:09→22:02)
[2017-01-16] MEDS: POLYETHYLENE GLYCOL 3350 119 GM BTL PO SCH (11:09)
[2017-01-16] MEDS: AMINO ACIDS 4.25%/D5W 1,000 ML IV SCH (11:10)
[2017-01-16] MEDS: AZITHROMYCIN IVPB 250 ML IVPB SCH (11:11)
[2017-01-16] MEDS: SILVER SULFADIAZINE 1% TOP CREAM 50 GM JAR TP SCH ×2 (11:12→22:01)
[2017-01-16] MEDS: COLLAGENASE CLOSTRIDIUM HIST. 30 GRAMS TUBE TP SCH (11:12)
[2017-01-16] MEDS ORDERED: INSULIN (NOVOLOG) ASPART 100 UNITS/ML 10ML VIAL ONE (11:27)
--- NOTE | 2017-01-16 12:23 | PN ---
Physical Exam: SUBJECTIVE: Patient seen and examined at bed side this morning. Patient mentions that his breathing improves while lying flat and he has difficulty in breathing on sitting up. Feels hungry but when he swallows he feels something is stuck around the epigastric area. Denies papitation, abdominal pain, vomiting. OBJECTIVE: Vital Signs Period Temp Pulse Resp BP Sys/Blanca Pulse Ox Last 24 Hr 96.2 F-97.8 F 64-78 18-22 105-147/52-75 97-100 GENERAL: Elderly male, lying in bed, is awake, alert, and fully oriented, in mild respiratory distress. Currie catheter in place. HEAD: Normal with no signs of trauma. EYES: EOM intact, no pallor or icterus. ENT: Ears normal, moist mucous membranes. NECK: Trachea midline, full range of motion, supple. LUNGS: Accessory muscle use +, labored breathing, Breath sounds decreased bilaterally at the bases, no wheeze. HEART: Regular rate and rhythm, S1, S2 with systolic murmur. ABDOMEN: Soft, nontender, nondistended, normoactive bowel sounds, no guarding, no rebound, no hepatosplenomegaly, no masses. EXTREMITIES: 2+ pulses, warm, well-perfused, no edema. Dressing applied over the wound on the right ankle. NEUROLOGICAL: No facial droop, Bulk/tone normal, power/CN-unable to assess because of respiratory distress. Normal speech but cannot speak a full sentence due to sob, gait not observed. PSYCH: Normal mood, normal affect. SKIN: Warm, dry, normal turgor, no rashes or lesions noted Laboratory Results - last 24 hr 01/15/17 01/15/17 01/16/17 17:26 22:34 03:38 WBC RBC Hgb Hct MCV MCHC RDW Plt Count MPV Neutrophils % Lymphocytes % Monocytes % Eosinophils % Basophils % Sodium Potassium Chloride Carbon Dioxide Anion Gap BUN Creatinine Creat Clearance w eGFR POC Glucometer 296 180 248 Random Glucose Calcium Phosphorus Magnesium Total Bilirubin AST ALT Alkaline Phosphatase Total Protein Albumin 01/16/17 01/16/17 01/16/17 05:57 05:57 06:23 WBC 9.1 D RBC 4.23 Hgb 12.9 Hct 38.1 MCV 90.2 MCHC 33.8 RDW 14.9 Plt Count 69 L D MPV 10.4 Neutrophils % 94.0 H Lymphocytes % 3.9 L D Monocytes % 2.0 L Eosinophils % 0.0 Basophils % 0.1 Sodium 141 Potassium 3.3 L Chloride 96 L Carbon Dioxide 33 H Anion Gap 12 BUN 82 H Creatinine 1.1 Creat Clearance w eGFR > 60 POC Glucometer 286 Random Glucose 270 H D Calcium 8.0 L Phosphorus 3.5 Magnesium 2.0 Total Bilirubin 0.7 AST 26 D ALT 40 Alkaline Phosphatase 130 H Total Protein 4.7 L Albumin 2.0 L 01/16/17 11:13 WBC RBC Hgb Hct MCV MCHC RDW Plt Count MPV Neutrophils % Lymphocytes % Monocytes % Eosinophils % Basophils % Sodium Potassium Chloride Carbon Dioxide Anion Gap BUN Creatinine Creat Clearance w eGFR POC Glucometer 320 Random Glucose Calcium Phosphorus Magnesium Total Bilirubin AST ALT Alkaline Phosphatase Total Protein Albumin Active Medications Generic Name Dose Route Start Last Admin Trade Name Freq PRN Reason Stop Dose Admin Acetaminophen 650 mg 01/06/17 15:40 01/11/17 20:57 Tylenol - PO 650 mg Q6H PRN Administration FEVER OR PAIN Acetylcysteine 600 mg 01/13/17 22:00 01/16/17 10:04 Mucomyst 20 Oral / Inh Use Only* NEB Not Given BID JONAS Albuterol Sulfate 1 amp 01/13/17 22:00 01/16/17 10:05 Ventolin 0.083% Nebulizer Soln - NEB Not Given BID JONAS Albuterol Sulfate 1 amp 01/13/17 10:11 Ventolin 0.5% - NEB Q4H PRN SHORT OF BREATH/WHEEZING Aspirin 300 mg 01/13/17 10:00 01/15/17 13:30 Asa - RC 300 mg DAILY JONAS Administration Collagenase 1 applic 01/07/17 10:00 01/16/17 11:12 Santyl - TP Not Given DAILY JONAS Furosemide 40 mg 01/15/17 06:00 01/16/17 06:31 Lasix Injection - IVPB 40 mg BID@0600,1400 JONAS Administration Guaifenesin 10 ml 01/06/17 15:40 01/09/17 17:26 Robitussin Dm - PO 10 ml Q6H PRN Administration COUGH Heparin Sodium (Porcine) 5,000 unit 01/07/17 09:30 01/16/17 11:09 Heparin - SQ Not Given BID JONAS Pantoprazole Sodium 100 mls @ 200 mls/hr 01/14/17 10:00 01/16/17 09:46 Protonix 40mg Ivpb (Pre-Docked) IVPB 200 mls/hr DAILY JONAS Administration Azithromycin 250 mls @ 250 mls/hr 01/15/17 10:00 01/16/17 11:11 Zithromax 500mg Ivpb (Pre-Docked) IVPB 250 mls/hr DAILY JONAS Administration Ceftriaxone Sodium 100 mls @ 200 mls/hr 01/15/17 10:00 01/16/17 09:46 Rocephin 2gm Ivpb (Pre-Docked) IVPB 200 mls/hr DAILY JONAS Administration Amino Acids 1,000 mls @ 42 mls/hr 01/15/17 09:54 01/16/17 11:10 Clinimix - IV 42 mls/hr Q24H JONAS Administration Insulin Aspart 1 vial 01/13/17 12:30 01/16/17 11:32 Novolog Vial Sliding Scale - SQ 6 units Q4H JONAS Administration Protocol Insulin Detemir 7.5 units 01/13/17 12:24 01/15/17 22:36 Levemir Vial SQ Not Given HS JONAS Insulin Detemir 20 units 01/13/17 21:35 01/16/17 06:31 Levemir Vial SQ 20 units AM JONAS Administration Lidocaine/Aluminum/Magnesium/Simeth 5 ml 01/06/17 18:00 01/16/17 06:25 Magic Mouthwash *Sjr Formula* - MM Not Given Q6HPO JONAS Methylprednisolone Sodium Succinate 60 mg 01/13/17 10:00 01/16/17 09:44 Solu-Medrol - IVPB 60 mg Q8H-IV JONAS Administration Metoprolol Tartrate 2.5 mg 01/15/17 15:05 01/16/17 11:10 Lopressor Injection - IVPUSH Not Given Q6H JONAS Morphine Sulfate 1 mg 01/13/17 12:22 01/16/17 00:35 Morphine Injection - IVPB 1 mg HS PRN Administration Dyspnea Nystatin 1 applic 01/06/17 22:00 01/16/17 11:09 Mycostatin Cream - TP 1 applic BID JONAS Administration Polyethylene Glycol 17 gm 01/05/17 15:15 01/16/17 11:09 Miralax (For Daily Use) - PO Not Given DAILY JONAS Scopolamine HBr 1 patch 01/10/17 17:00 01/13/17 17:27 Transderm-Scop - TD 1 patch Q72H JONAS Administration Silver Sulfadiazine 1 applic 01/06/17 22:00 01/16/17 11:12 Silvadene - TP 1 applic BID JONAS Administration Sodium Chloride 2 spray 01/10/17 12:02 01/13/17 23:25 [place] Nasal [place] - NS 2 sprays TID PRN Administration NASAL CONGESTION ASSESSMENT/PLAN: Patient is a 81-year-old man with a significant past medical history of diabetes mellitus, coronary artery disease status post CABG, benign prostate hyperplasia who was recently admitted at [facility] in July for Pneumonia, now in [facility] for physical therapy who presented to the emergency department via EMS for further evaluation of respiratory distress. # Acute hypoxic respiratory failure likely secondary to ILD and pneumonia Added IV Ceftriaxone 2gm Daily and IV Azithromycin 500mg Daily-Day 2, sob improving with addition of antibiotics Continue Oxygen @ 2L (Maintain saturation > 90 %-95%), Bipap as needed. Continue Solumedrol 60mg IV Q8H Guaifenesis DM 10mg PO Q6H Mucomist Neb and Albuterol Q4H discontinued as patient says he gets nauseous. IV Morphine 1mg HS PRN (Discussed with the patient and his , they agreed) # Diabetes Mellitus Insulin sliding scale Finger stick glucose monitoring Continue Levemir 7.5 u sq HS and Levemir 17 U sq AM # Afib converted into NSR. ContinueIV Metoprolol 2.5 mg Q6H # CAD s/p CABG Continue AL Aspirin 300mg Daily # Constipation Colace Daily # Tinea pedis Nystatin creatm TP BID # Ulcer in the right lateral malleolus Collagenase TP Daily # FEN IV Clinimix 42 mls/hr Electrolytes to be repeated tomorrow Swallow evaulation done today, was recommended puree diet with thinned out with soup. # Prophylaxis For DVT: On Heparin 5000 U sq For GI: On IV Pantoprazole 40mg BID Daily # Code Status: DNR/DNI Illness, Investigation and Plan of care explained to the patient and his . They verbalized understanding. Labs to be drawn once a week as per family's request. Case seen and discussed with Dr. Chavira. Visit type - Emergency Visit Emergency Visit: Yes ED Registration Date: 12/16/16 Care time: The patient presented to the Emergency Department on the above date and was hospitalized for further evaluation of their emergent condition. - New Patient This patient is new to me today: No - Critical Care Critical Care patient: No - Discharge Referral Referred to [facility] Med P.C.: No
--- NOTE | 2017-01-16 12:36 | PN ---
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 Pt reports: needing to take a bite but then recline as it seems to get stuck, mid chest, and reclining improves passage. I counseled pt and risk of aspiration if reclining after intake, however he feels it is necessary. Pt's speech is much worse than during my last visit. Pt desaturates quickly when NRB temporarily moved for speech/PO intake to 80's or below. More hypophonic, impaired respiratory capacity for speech. Communication board- letters/pictures, provided to improve functional communication. PO as tolerated. As suggested before, consider puree, now thinned out with soup. [place] thick liquid. Alternate 1/3 tsp puree with tsp nectar to clear esophagus. Swallow hard,2 swallows per bite. Replace NRB immediately after taking bite, to maintain o2 saturation. Pt feels ensure compact increases his blood sugar? F/U by RD. Reviewed with pt/.
[2017-01-16] MEDS: ASPIRIN 300 MG SUPP.RECT RC SCH (13:57)
[2017-01-16] MEDS ORDERED: PT OWN MED DRAWER 7, Y5N ONE (17:33)
[2017-01-16] MEDS: SCOPOLAMINE HYDROBROMIDE 1 PATCH PATCH.TD72 TD SCH (17:34)
--- NOTE | 2017-01-16 21:10 | PN ---
Teaching Attending Note Name of Resident: Kassandra Crawley ATTENDING PHYSICIAN STATEMENT I saw and evaluated the patient. I reviewed the resident's note and discussed the case with the resident. I agree with the resident's findings and plan as documented. SUBJECTIVE: No changes at this time, feels very tired. OBJECTIVE: Vital Signs Temperature 97.5 F L 01/16/17 14:50 Pulse Rate 77 01/16/17 14:50 Respiratory Rate 18 01/16/17 14:50 Blood Pressure 116/74 01/16/17 14:50 O2 Sat by Pulse Oximetry (%) 97 01/16/17 10:00 CBCD WBC 9.1 K/mm3 (4.0-10.0) D 01/16/17 05:57 RBC 4.23 M/mm3 (4.00-5.60) 01/16/17 05:57 Hgb 12.9 GM/dL (11.7-16.9) 01/16/17 05:57 Hct 38.1 % (35.4-49) 01/16/17 05:57 MCV 90.2 fl (80-96) 01/16/17 05:57 MCHC 33.8 g/dl (32.0-35.9) 01/16/17 05:57 RDW 14.9 % (11.9-15.9) 01/16/17 05:57 Plt Count 69 K/MM3 (134-434) L D 01/16/17 05:57 MPV 10.4 fl (7.5-11.1) 01/16/17 05:57 CMP Sodium 141 mmol/L (136-145) 01/16/17 05:57 Potassium 3.3 mmol/L (3.5-5.1) L 01/16/17 05:57 Chloride 96 mmol/L (98-107) L 01/16/17 05:57 Carbon Dioxide 33 mmol/L (21-32) H 01/16/17 05:57 Anion Gap 12 (8-16) 01/16/17 05:57 BUN 82 mg/dL (7-18) H 01/16/17 05:57 Creatinine 1.1 mg/dL (0.7-1.3) 01/16/17 05:57 Creat Clearance w eGFR > 60 (>60) 01/16/17 05:57 Random Glucose 270 mg/dL (74-106) H D 01/16/17 05:57 Calcium 8.0 mg/dL (8.5-10.1) L 01/16/17 05:57 Total Bilirubin 0.7 mg/dL (0.2-1.0) 01/16/17 05:57 AST 26 U/L (15-37) D 01/16/17 05:57 ALT 40 U/L (12-78) 01/16/17 05:57 Alkaline Phosphatase 130 U/L (45-117) H 01/16/17 05:57 Total Protein 4.7 g/dl (6.4-8.2) L 01/16/17 05:57 Albumin 2.0 g/dl (3.4-5.0) L 01/16/17 05:57 CARDIAC ENZYMES Creatine Kinase 31 IU/L (39-308) L 12/21/16 14:15 Troponin I 0.03 ng/ml (0.00-0.05) 12/21/16 14:15 Current Medications Generic Name Dose Route Start Last Admin Trade Name Freq PRN Reason Stop Dose Admin Acetaminophen 650 mg 01/06/17 15:40 01/11/17 20:57 Tylenol - PO 650 mg Q6H PRN Administration FEVER OR PAIN Aspirin 300 mg 01/13/17 10:00 01/16/17 13:57 Asa - RC 300 mg DAILY JONAS Administration Collagenase 1 applic 01/07/17 10:00 01/16/17 11:12 Santyl - TP Not Given DAILY JONAS Furosemide 40 mg 01/15/17 06:00 01/16/17 14:15 Lasix Injection - IVPB 40 mg BID@0600,1400 JONAS Administration Guaifenesin 10 ml 01/06/17 15:40 01/09/17 17:26 Robitussin Dm - PO 10 ml Q6H PRN Administration COUGH Heparin Sodium (Porcine) 5,000 unit 01/07/17 09:30 01/16/17 11:09 Heparin - SQ Not Given BID JONAS Pantoprazole Sodium 100 mls @ 200 mls/hr 01/14/17 10:00 01/16/17 09:46 Protonix 40mg Ivpb (Pre-Docked) IVPB 200 mls/hr DAILY JONAS Administration Azithromycin 250 mls @ 250 mls/hr 01/15/17 10:00 01/16/17 11:11 Zithromax 500mg Ivpb (Pre-Docked) IVPB 250 mls/hr DAILY JONAS Administration Ceftriaxone Sodium 100 mls @ 200 mls/hr 01/15/17 10:00 01/16/17 09:46 Rocephin 2gm Ivpb (Pre-Docked) IVPB 200 mls/hr DAILY JONAS Administration Amino Acids 1,000 mls @ 42 mls/hr 01/15/17 09:54 01/16/17 11:10 Clinimix - IV 42 mls/hr Q24H JONAS Administration Insulin Aspart 1 vial 01/16/17 18:00 01/16/17 18:36 Novolog Vial Sliding Scale - SQ Not Given Q4HPO JONAS Protocol Insulin Detemir 7.5 units 01/13/17 12:24 01/15/17 22:36 Levemir Vial SQ Not Given HS JONAS Insulin Detemir 35 units 01/17/17 07:00 Levemir Vial SQ AM JONAS Lidocaine/Aluminum/Magnesium/Simeth 5 ml 01/06/17 18:00 01/16/17 18:01 Magic Mouthwash *Sjr Formula* - MM 5 ml Q6HPO JONAS Administration Methylprednisolone Sodium Succinate 60 mg 01/13/17 10:00 01/16/17 17:27 Solu-Medrol - IVPB 60 mg Q8H-IV JONAS Administration Metoprolol Tartrate 2.5 mg 01/15/17 15:05 01/16/17 14:18 Lopressor Injection - IVPUSH Not Given Q6H JONAS Morphine Sulfate 1 mg 01/13/17 12:22 01/16/17 00:35 Morphine Injection - IVPB 1 mg HS PRN Administration Dyspnea Nystatin 1 applic 01/06/17 22:00 01/16/17 11:09 Mycostatin Cream - TP 1 applic BID JONAS Administration Polyethylene Glycol 17 gm 01/05/17 15:15 01/16/17 11:09 Miralax (For Daily Use) - PO Not Given DAILY JONAS Scopolamine HBr 1 patch 01/10/17 17:00 01/16/17 17:34 Transderm-Scop - TD 1 patch Q72H JONAS Administration Silver Sulfadiazine 1 applic 01/06/17 22:00 01/16/17 11:12 Silvadene - TP 1 applic BID JONAS Administration Sodium Chloride 2 spray 01/10/17 12:02 01/13/17 23:25 [place] Nasal [place] - NS 2 sprays TID PRN Administration NASAL CONGESTION Home Medications Medication Instructions Recorded Aspirin [ASA -] 81 mg PO DAILY tab.chew 08/10/16 Budesonide [Pulmicort 0.25 mg 1 neb PO BID 12/16/16 Nebulizer -] Clopidogrel Bisulfate [Plavix -] 75 mg PO DAILY 12/16/16 Collagenase Clostridium Hist. 1 applic TP DAILY 12/16/16 [Santyl] Flunisolide 25 ml NS BID 12/16/16 Heparin - 5,000 unit SQ BID 12/16/16 Insulin Glargine,Hum.rec.anlog 40 units SQ HS 12/16/16 [Lantus (nf)] Insulin Lispro [Humalog] 0 unit SQ AC 12/16/16 Ipratropium/Albuterol Sulfate 3 ml IH QID 12/16/16 [Iprat-Albut 0.5-3(2.5) mg/3 ml] Oxycodone HCl/Acetaminophen 1 each PO QID PRN 12/16/16 [Oxycodone-Acetaminophen 5-325] Pantoprazole Sodium 40 mg PO DAILY 12/16/16 Prednisone [Deltasone -] 20 mg PO DAILY 12/16/16 Sennosides [Senokot] 8.6 mg PO HS 12/16/16 Tamsulosin HCl [Flomax] 0.4 mg PO DAILY 12/16/16 Acetaminophen [Tylenol .Regular 650 mg PO Q6H PRN #0 tablet 01/10/17 Strength -] Amino Acids/Protein Hydrolys 30 ml PO BID@0800,1730 packet 01/10/17 [Prosource No Carb Liquid Pkt] Ascorbic Acid [Vitamin C -] 250 mg PO BID tablet 01/10/17 Bacitracin - [Bacitracin Topical 1 applic TP DAILY tube 01/10/17 Ointment -] Collagenase Clostridium Hist. 1 applic TP DAILY tube 01/10/17 [Santyl -] Furosemide [Lasix -] 40 mg PO DAILY tablet 01/10/17 Heparin - 5,000 unit SQ BID vial 01/10/17 Insulin Sliding Scale [Novolog 1 vial SQ ACHS units 01/10/17 Vial Sliding Scale -] Mag Hydrox/Alh/Smc/Dpha/Lido 5 ml MM Q6HPO bottle 01/10/17 [Magic Mouthwash *Sjr Formula* -] Metoprolol Tartrate [Lopressor -] 12.5 mg PO TID tablet 01/10/17 Multivitamins [Multivit ([facility] 1 tab PO DAILY tab 01/10/17 Formulary)] Nystatin Powder [Nystop Powder -] 1 applic TP DAILY applic 01/10/17 Prednisone [Deltasone -] 40 mg PO DAILY tablet 01/10/17 Silver Sulfadiazine 1% Top Cr 1 applic TP BID jar 01/10/17 [Silvadene -] Simethicone [Mylicon -] 80 mg PO Q4H PRN #0 tab.chew 01/10/17 ASSESSMENT AND PLAN: Patient is a 81-year-old man with a significant past medical history of T2DM,CAD , s/p CABG,BPH, who was recently admitted at [facility] in July for Pneumonia, now in [facility] for physical therapy who presented to the emergency department via EMS for further evaluation of respiratory distress. # Acute hypoxic respiratory failure due ILD and pneumonia on Oxygen continue, Bipap at nights and or prn, morphine at night only prn, On Solu medrol increased the dose IV 60mg q8h prn. On Hospice care at this time, Palliative care nurse is on the case. Everything switched to IV meds. since desating off oxygen. Also Clinimax was ordered will continue. Also mucomyst and albuterol nebulizer is ordered. Will increase the dose of Lasix 40mg IV bid. # Afib converted into NSR. continue Metoprolol 2.5mg IV q6h prn. # Diabetes Mellitus on Insulin sliding scale as per protocol # CAD s/p CABG Aspirin 325 po daily , able to swallow the pills. # Tinea pedis Nystatin cream TP BID # Open wound ;Ulcer in the right lateral malleolus Collagenase TP Daily # DVT Prophylaxis: On Heparin 5000 U sq GI Px: Pantoprazole Code Status: DNR/DNI Patient is under Hospice care ;DNR/DNI Patient was made Inpatient hospice care. patient and patient's does not want the patient to be on Morphine except at night if needed prn.
--- NOTE | 2017-01-16 23:43 | PN ---
Progress Note, Physician Chief Complaint: dyspneic at rest desatuarating off o2 History of Present Illness: 81 y male with ild severity of illness,and continue requirement high dose steroids for respiratory illness,requiring insulin dose regiment titration now on iv clinimex poor appetite - Current Medication List Current Medications: Active Medications Acetaminophen (Tylenol -) 650 mg PO Q6H PRN PRN Reason: FEVER OR PAIN Last Admin: 01/11/17 20:57 Dose: 650 mg Aspirin (Asa -) 300 mg RC DAILY [facility] Last Admin: 01/16/17 13:57 Dose: 300 mg Collagenase (Santyl -) 1 applic TP DAILY [facility] Last Admin: 01/16/17 11:12 Dose: Not Given Furosemide (Lasix Injection -) 40 mg IVPB BID@0600,1400 [facility] Last Admin: 01/16/17 14:15 Dose: 40 mg Guaifenesin (Robitussin Dm -) 10 ml PO Q6H PRN PRN Reason: COUGH Last Admin: 01/09/17 17:26 Dose: 10 ml Heparin Sodium (Porcine) (Heparin -) 5,000 unit SQ BID [facility] Last Admin: 01/16/17 21:54 Dose: Not Given Pantoprazole Sodium (Protonix 40mg Ivpb (Pre-Docked)) 100 mls @ 200 mls/hr IVPB DAILY [facility] Last Admin: 01/16/17 09:46 Dose: 200 mls/hr Azithromycin (Zithromax 500mg Ivpb (Pre-Docked)) 250 mls @ 250 mls/hr IVPB DAILY [facility] Last Admin: 01/16/17 11:11 Dose: 250 mls/hr Ceftriaxone Sodium (Rocephin 2gm Ivpb (Pre-Docked)) 100 mls @ 200 mls/hr IVPB DAILY [facility] Last Admin: 01/16/17 09:46 Dose: 200 mls/hr Amino Acids (Clinimix -) 1,000 mls @ 42 mls/hr IV Q24H [facility] Last Admin: 01/16/17 11:10 Dose: 42 mls/hr Insulin Aspart (Novolog Vial Sliding Scale -) 1 vial SQ Q4HPO JONAS PRN Reason: Protocol Last Admin: 01/16/17 21:53 Dose: Not Given Insulin Detemir (Levemir Vial) 7.5 units SQ HS [facility] Last Admin: 01/16/17 21:54 Dose: Not Given Insulin Detemir (Levemir Vial) 35 units SQ AM [facility] Lidocaine/Aluminum/Magnesium/Simeth (Magic Mouthwash *Sjr Formula* -) 5 ml MM Q6HPO [facility] Last Admin: 01/16/17 18:01 Dose: 5 ml Methylprednisolone Sodium Succinate (Solu-Medrol -) 60 mg IVPB Q8H-IV [facility] Last Admin: 01/16/17 17:27 Dose: 60 mg Metoprolol Tartrate (Lopressor Injection -) 2.5 mg IVPUSH Q6H [facility] Last Admin: 01/16/17 21:54 Dose: 2.5 mg Morphine Sulfate (Morphine Injection -) 1 mg IVPB HS PRN PRN Reason: Dyspnea Last Admin: 01/16/17 00:35 Dose: 1 mg Nystatin (Mycostatin Cream -) 1 applic TP BID [facility] Last Admin: 01/16/17 22:02 Dose: 1 applic Polyethylene Glycol (Miralax (For Daily Use) -) 17 gm PO DAILY [facility] Last Admin: 01/16/17 11:09 Dose: Not Given Scopolamine HBr (Transderm-Scop -) 1 patch TD Q72H [facility] Last Admin: 01/16/17 17:34 Dose: 1 patch Silver Sulfadiazine (Silvadene -) 1 applic TP BID [facility] Last Admin: 01/16/17 22:01 Dose: 1 applic Sodium Chloride ([place] Nasal [place] -) 2 spray NS TID PRN PRN Reason: NASAL CONGESTION Last Admin: 01/13/17 23:25 Dose: 2 sprays - Objective Vital Signs: Vital Signs Temperature 97.6 F 01/16/17 21:20 Pulse Rate 77 01/16/17 21:54 Respiratory Rate 20 01/16/17 21:20 Blood Pressure 129/62 01/16/17 21:54 O2 Sat by Pulse Oximetry (%) 97 01/16/17 21:00 Constitutional: Yes: Anxious Eyes: Yes: EOM Intact HENT: Yes: Normocephalic Neck: Yes: Trachea Midline Cardiovascular: Yes: Tachycardia, S2 Respiratory: Yes: Accessory Muscle Use, On Venti-Mask, Poor Air Entry, Rhonchi, SOB, Tachypnea, Wheezes Gastrointestinal: Yes: Soft, Hypoactive Bowel Sounds ...Rectal Exam: Yes: Deferred Genitourinary: Yes: WNL Breast(s): Yes: WNL Musculoskeletal: Yes: Muscle Weakness Extremities: Yes: Cool Edema: No Peripheral Pulses WNL: No Wound/Incision: Yes: Dressing Dry and Intact Neurological: Yes: Alert ...Motor Strength: LUE, LLE, RUE, RLE (decrease strenght) Psychiatric: Yes: Alert Labs: CBC, BMP 01/16/17 05:57 01/16/17 05:57 INR, PTT INR 1.19 (0.82-1.09) H 01/02/17 20:51 Problem List - Problems (1) UTI (urinary tract infection) Code(s): N39.0 - URINARY TRACT INFECTION, SITE NOT SPECIFIED Qualifiers: Urinary tract infection type: acute cystitis (2) BPH (benign prostatic hyperplasia) Code(s): N40.0 - BENIGN PROSTATIC HYPERPLASIA WITHOUT LOWER URINRY TRACT SYMP (3) Diabetes mellitus, insulin dependent (IDDM), uncontrolled Code(s): E10.65 - TYPE 1 DIABETES MELLITUS WITH HYPERGLYCEMIA Qualifiers: 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 Assessment/Plan Current Active Problems Abnormal CT scan, chest (Acute) Acute hypoxemic respiratory failure (Acute) Afib (Acute) CKD (chronic kidney disease) (Acute) COPD (chronic obstructive pulmonary disease) (Acute) Diabetes mellitus, insulin dependent (IDDM), uncontrolled (Acute) PAD (peripheral artery disease) (Acute) Pneumomediastinum (Acute) Pneumonia (Acute) Pneumothorax (Acute) Respiratory distress (Acute) SOB (shortness of breath) (Acute) ILD;SEVERE ILLNESS WITH DESATURATION UNCONTROLLED IDDM Abnormal Lab Results 01/16/17 01/16/17 05:57 05:57 Plt Count 69 L D Neutrophils % 94.0 H Lymphocytes % 3.9 L D Monocytes % 2.0 L Potassium 3.3 L Chloride 96 L Carbon Dioxide 33 H BUN 82 H Random Glucose 270 H D Calcium 8.0 L Alkaline Phosphatase 130 H Total Protein 4.7 L Albumin 2.0 L Laboratory Results - last 24 hr 01/16/17 01/16/17 01/16/17 03:38 05:57 05:57 WBC 9.1 D RBC 4.23 Hgb 12.9 Hct 38.1 MCV 90.2 MCHC 33.8 RDW 14.9 Plt Count 69 L D MPV 10.4 Neutrophils % 94.0 H Lymphocytes % 3.9 L D Monocytes % 2.0 L Eosinophils % 0.0 Basophils % 0.1 Sodium 141 Potassium 3.3 L Chloride 96 L Carbon Dioxide 33 H Anion Gap 12 BUN 82 H Creatinine 1.1 Creat Clearance w eGFR > 60 POC Glucometer 248 Random Glucose 270 H D Calcium 8.0 L Phosphorus 3.5 Magnesium 2.0 Total Bilirubin 0.7 AST 26 D ALT 40 Alkaline Phosphatase 130 H Total Protein 4.7 L Albumin 2.0 L 01/16/17 01/16/17 01/16/17 06:23 11:13 17:05 WBC RBC Hgb Hct MCV MCHC RDW Plt Count MPV Neutrophils % Lymphocytes % Monocytes % Eosinophils % Basophils % Sodium Potassium Chloride Carbon Dioxide Anion Gap BUN Creatinine Creat Clearance w eGFR POC Glucometer 286 320 294 Random Glucose Calcium Phosphorus Magnesium Total Bilirubin AST ALT Alkaline Phosphatase Total Protein Albumin 01/16/17 21:49 WBC RBC Hgb Hct MCV MCHC RDW Plt Count MPV Neutrophils % Lymphocytes % Monocytes % Eosinophils % Basophils % Sodium Potassium Chloride Carbon Dioxide Anion Gap BUN Creatinine Creat Clearance w eGFR POC Glucometer 260 Random Glucose Calcium Phosphorus Magnesium Total Bilirubin AST ALT Alkaline Phosphatase Total Protein Albumin PLAN: SUPPORTIVE CARE IV CLINIMEX INSULIN REGIMENT WITH LEVEMIR BID NOVOLOG DOSE QID
[2017-01-17] MEDS: MAG HYDROX/ALH/SMC/DPHA/LIDO 240 ML MOUTHWASH MM SCH ×4 (00:35→19:00)
[2017-01-17] MEDS: methylPREDNISolone NA SUCC 40 MG/1 ML VIAL IVPB SCH ×3 (01:40→18:27)
[2017-01-17] MEDS: INSULIN SLIDING SCALE (NOVOLOG) 1 VIAL SQ SCH ×6 (01:50→22:00)
[2017-01-17] MEDS: METOPROLOL TARTRATE 5 MG/5 ML VIAL IVPUSH SCH ×3 (03:40→11:49)
[2017-01-17] MEDS: FUROSEMIDE 40 MG/4 ML INJECTABLE VIAL IVPB SCH ×2 (06:10→14:58)
[2017-01-17] MEDS: INSULIN DETEMIR 100 UNITS/ML MDV SQ SCH ×2 (06:26→21:59)
[2017-01-17] MEDS ORDERED: morphine CARPU-JECT 2 MG/1 ML DISP.SYRIN IVPB ONE (09:00)
[2017-01-17] MEDS ORDERED: PT OWN MED DRAWER 7, Y5N ONE (10:08)
[2017-01-17] MEDS: COLLAGENASE CLOSTRIDIUM HIST. 30 GRAMS TUBE TP SCH (10:19)
[2017-01-17] MEDS: NYSTATIN 100,000 UNIT/GM TOPICAL CREAM 15 GM TUBE TP SCH ×2 (10:19→21:59)
[2017-01-17] MEDS: AZITHROMYCIN IVPB 250 ML IVPB SCH (10:29)
[2017-01-17] MEDS: CEFTRIAXONE 100 ML IVPB SCH (10:30)
[2017-01-17] MEDS: PANTOPRAZOLE SODIUM 40MG/100 ML IVPB SCH (10:30)
[2017-01-17] MEDS: ASPIRIN 300 MG SUPP.RECT RC SCH (10:30)
[2017-01-17] MEDS: AMINO ACIDS 4.25%/D5W 1,000 ML IV SCH (10:31)
[2017-01-17] MEDS: HEPARIN NA (PORCINE) 5,000 UNITS/ML 1ML VIAL SQ SCH ×2 (10:51→21:59)
[2017-01-17 12:24] LABS: ASPERGILLUS GALACTOMANNAN AG 0.14
[2017-01-17] MEDS ORDERED: LORAZEPAM CARPU-JECT 2 MG/ML DISP.SYRIN IM PRN (13:22)
--- NOTE | 2017-01-17 13:42 | PN ---
Progress Note (short form) - Note Progress Note: Patient is lying in bed but has not slept all night feeling very tired. Patient does not want any morphine. Temperature 98.0 F 01/17/17 02:00 Pulse Rate 89 01/17/17 09:40 Respiratory Rate 24 01/17/17 09:00 Blood Pressure 118/58 01/17/17 03:30 O2 Sat by Pulse Oximetry (%) 93 L 01/17/17 09:40 GENERAL: The patient is awake, alert, and fully oriented, in mild distress. HEAD: Normal with no signs of trauma. EYES: PERRL, extraocular movements intact, sclera anicteric, conjunctiva clear. ENT: Ears normal, oropharynx clear without exudates, moist mucous membranes. NECK: Trachea midline, full range of motion, supple. LUNGS: decreased Breath sounds BL, positive for crackles bl , no wheezes, mild accessory muscle use on exertion, on 100%NR HEART: Regular rate and rhythm, S1, S2 without murmur, rub or gallop. ABDOMEN: Soft, nontender, nondistended, normoactive bowel sounds, no guarding, no rebound, no hepatosplenomegaly, no masses. EXTREMITIES: 2+ pulses, warm, well-perfused, no edema. NEUROLOGICAL: Cranial nerves II through XII grossly intact. Normal speech, gait not observed. PSYCH: Normal mood, normal affect. SKIN: Warm, dry, normal turgor, no rashes or lesions noted CBCD WBC 9.1 K/mm3 (4.0-10.0) D 01/16/17 05:57 RBC 4.23 M/mm3 (4.00-5.60) 01/16/17 05:57 Hgb 12.9 GM/dL (11.7-16.9) 01/16/17 05:57 Hct 38.1 % (35.4-49) 01/16/17 05:57 MCV 90.2 fl (80-96) 01/16/17 05:57 MCHC 33.8 g/dl (32.0-35.9) 01/16/17 05:57 RDW 14.9 % (11.9-15.9) 01/16/17 05:57 Plt Count 69 K/MM3 (134-434) L D 01/16/17 05:57 MPV 10.4 fl (7.5-11.1) 01/16/17 05:57 CMP Sodium 141 mmol/L (136-145) 01/16/17 05:57 Potassium 3.3 mmol/L (3.5-5.1) L 01/16/17 05:57 Chloride 96 mmol/L (98-107) L 01/16/17 05:57 Carbon Dioxide 33 mmol/L (21-32) H 01/16/17 05:57 Anion Gap 12 (8-16) 01/16/17 05:57 BUN 82 mg/dL (7-18) H 01/16/17 05:57 Creatinine 1.1 mg/dL (0.7-1.3) 01/16/17 05:57 Creat Clearance w eGFR > 60 (>60) 01/16/17 05:57 Random Glucose 270 mg/dL (74-106) H D 01/16/17 05:57 Calcium 8.0 mg/dL (8.5-10.1) L 01/16/17 05:57 Total Bilirubin 0.7 mg/dL (0.2-1.0) 01/16/17 05:57 AST 26 U/L (15-37) D 01/16/17 05:57 ALT 40 U/L (12-78) 01/16/17 05:57 Alkaline Phosphatase 130 U/L (45-117) H 01/16/17 05:57 Total Protein 4.7 g/dl (6.4-8.2) L 01/16/17 05:57 Albumin 2.0 g/dl (3.4-5.0) L 01/16/17 05:57 CARDIAC ENZYMES Creatine Kinase 31 IU/L (39-308) L 12/21/16 14:15 Troponin I 0.03 ng/ml (0.00-0.05) 12/21/16 14:15 Current Medications Generic Name Dose Route Start Last Admin Trade Name Freq PRN Reason Stop Dose Admin Acetaminophen 650 mg 01/06/17 15:40 01/11/17 20:57 Tylenol - PO 650 mg Q6H PRN Administration FEVER OR PAIN Aspirin 300 mg 01/13/17 10:00 01/17/17 10:30 Asa - RC 300 mg DAILY JONAS Administration Collagenase 1 applic 01/07/17 10:00 01/16/17 11:12 Santyl - TP Not Given DAILY JONAS Diphenhydramine HCl 25 mg 01/17/17 13:47 01/17/17 14:58 Benadryl Injection - IVPB 25 mg Q8H PRN Administration FOR ITCHING Furosemide 40 mg 01/15/17 06:00 01/17/17 14:58 Lasix Injection - IVPB 40 mg BID@0600,1400 JONAS Administration Heparin Sodium (Porcine) 5,000 unit 01/17/17 22:00 Heparin - SQ BID JONAS Pantoprazole Sodium 100 mls @ 200 mls/hr 01/14/17 10:00 01/17/17 10:30 Protonix 40mg Ivpb (Pre-Docked) IVPB 200 mls/hr DAILY JONAS Administration Azithromycin 250 mls @ 250 mls/hr 01/15/17 10:00 01/17/17 10:29 Zithromax 500mg Ivpb (Pre-Docked) IVPB 250 mls/hr DAILY JONAS Administration Ceftriaxone Sodium 100 mls @ 200 mls/hr 01/15/17 10:00 01/17/17 10:30 Rocephin 2gm Ivpb (Pre-Docked) IVPB 200 mls/hr DAILY JONAS Administration Amino Acids 1,000 mls @ 42 mls/hr 01/15/17 09:54 01/17/17 10:31 Clinimix - IV 42 mls/hr Q24H JONAS Administration Insulin Aspart 1 vial 01/16/17 18:00 01/17/17 13:40 Novolog Vial Sliding Scale - SQ Not Given Q4HPO [facility] Protocol Insulin Detemir 7.5 units 01/13/17 12:24 01/16/17 21:54 Levemir Vial SQ Not Given HS JONAS Insulin Detemir 35 units 01/17/17 07:00 01/17/17 06:26 Levemir Vial SQ 35 units AM JONAS Administration Lidocaine/Aluminum/Magnesium/Simeth 5 ml 01/06/17 18:00 01/17/17 05:35 Magic Mouthwash *Sjr Formula* - MM 5 ml Q6HPO JONAS Administration Methylprednisolone Sodium Succinate 40 mg 01/17/17 13:22 Solu-Medrol - IVPB Q8H-IV JONAS Morphine Sulfate 1 mg 01/13/17 12:22 01/16/17 00:35 Morphine Injection - IVPB 1 mg discontinued HS PRN Administration Dyspnea Nystatin 1 applic 01/06/17 22:00 01/16/17 22:02 Mycostatin Cream - TP 1 applic BID JONAS Administration Polyethylene Glycol 17 gm 01/05/17 15:15 01/16/17 11:09 Miralax (For Daily Use) - PO Not Given DAILY JONAS Scopolamine HBr 1 patch 01/10/17 17:00 01/16/17 17:34 Transderm-Scop - TD 1 patch Q72H JONAS Administration Silver Sulfadiazine 1 applic 01/06/17 22:00 01/16/17 22:01 Silvadene - TP 1 applic BID JONAS Administration Sodium Chloride 2 spray 01/10/17 12:02 01/13/17 23:25 [place] Nasal [place] - NS 2 sprays TID PRN Administration NASAL CONGESTION Home Medications Medication Instructions Recorded Aspirin [ASA -] 81 mg PO DAILY tab.chew 08/10/16 Budesonide [Pulmicort 0.25 mg 1 neb PO BID 12/16/16 Nebulizer -] Clopidogrel Bisulfate [Plavix -] 75 mg PO DAILY 12/16/16 Collagenase Clostridium Hist. 1 applic TP DAILY 12/16/16 [Santyl] Flunisolide 25 ml NS BID 12/16/16 Heparin - 5,000 unit SQ BID 12/16/16 Insulin Glargine,Hum.rec.anlog 40 units SQ HS 12/16/16 [Lantus (nf)] Insulin Lispro [Humalog] 0 unit SQ AC 12/16/16 Ipratropium/Albuterol Sulfate 3 ml IH QID 12/16/16 [Iprat-Albut 0.5-3(2.5) mg/3 ml] Oxycodone HCl/Acetaminophen 1 each PO QID PRN 12/16/16 [Oxycodone-Acetaminophen 5-325] Pantoprazole Sodium 40 mg PO DAILY 12/16/16 Prednisone [Deltasone -] 20 mg PO DAILY 12/16/16 Sennosides [Senokot] 8.6 mg PO HS 12/16/16 Tamsulosin HCl [Flomax] 0.4 mg PO DAILY 12/16/16 Acetaminophen [Tylenol .Regular 650 mg PO Q6H PRN #0 tablet 01/10/17 Strength -] Amino Acids/Protein Hydrolys 30 ml PO BID@0800,1730 packet 01/10/17 [Prosource No Carb Liquid Pkt] Ascorbic Acid [Vitamin C -] 250 mg PO BID tablet 01/10/17 Bacitracin - [Bacitracin Topical 1 applic TP DAILY tube 01/10/17 Ointment -] Collagenase Clostridium Hist. 1 applic TP DAILY tube 01/10/17 [Santyl -] Furosemide [Lasix -] 40 mg PO DAILY tablet 01/10/17 Heparin - 5,000 unit SQ BID vial 01/10/17 Insulin Sliding Scale [Novolog 1 vial SQ ACHS units 01/10/17 Vial Sliding Scale -] Mag Hydrox/Alh/Smc/Dpha/Lido 5 ml MM Q6HPO bottle 01/10/17 [Magic Mouthwash *Sjr Formula* -] Metoprolol Tartrate [Lopressor -] 12.5 mg PO TID tablet 01/10/17 Multivitamins [Multivit ([facility] 1 tab PO DAILY tab 01/10/17 Formulary)] Nystatin Powder [Nystop Powder -] 1 applic TP DAILY applic 01/10/17 Prednisone [Deltasone -] 40 mg PO DAILY tablet 01/10/17 Silver Sulfadiazine 1% Top Cr 1 applic TP BID jar 01/10/17 [Silvadene -] Simethicone [Mylicon -] 80 mg PO Q4H PRN #0 tab.chew 01/10/17 A/P: Patient is a 81-year-old man with a significant past medical history of T2DM,CAD , s/p CABG,BPH, who was recently admitted at [facility] in July for Pneumonia, now in [facility] for physical therapy who presented to the emergency department via EMS for further evaluation of respiratory distress. # Acute hypoxic respiratory failure due ILD and pneumonia on 100% NR continue, Bipap at nights prn, patient is refusing morphine , On Solu medrol decreased the dose IV . On Hospice care at this time, Palliative care nurse is on the case. all the meds switched to IV since desating off oxygen. Also added Clinimax since not eating . Patient is refusing mucomyst and albuterol nebulizer today. On IV lasix # Pneumonia added Rocephin/zithromax continue for now # Afib converted into NSR. Patient is refusing Metoprolol 2.5mg IV q6h prn since making him tired. # Diabetes Mellitus on Insulin sliding scale as per protocol # CAD s/p CABG Aspirin 300mg rectal daily . # Tinea pedis Nystatin cream TP BID # Open wound ;Ulcer in the right lateral malleolus Collagenase TP Daily # DVT Prophylaxis: On Heparin 5000 U sq GI Px: Pantoprazole Patient is under Hospice care ;DNR/DNI Patient was made Inpatient hospice care. Patient does not want Morphine( hallucinating) requesting to discontinue Lopressor states that is making him tired Does not want lorazepam wants Benadryl Visit type - Emergency Visit Emergency Visit: Yes ED Registration Date: 12/16/16 Care time: The patient presented to the Emergency Department on the above date and was hospitalized for further evaluation of their emergent condition. - New Patient This patient is new to me today: No - Critical Care Critical Care patient: No
[2017-01-17] MEDS: POLYETHYLENE GLYCOL 3350 119 GM BTL PO SCH (17:03)
[2017-01-17] MEDS: SILVER SULFADIAZINE 1% TOP CREAM 50 GM JAR TP SCH ×2 (18:19→22:00)
[2017-01-17] MEDS ORDERED: LORAZEPAM CARPU-JECT 2 MG/ML DISP.SYRIN IVPUSH ONE (21:40)
[2017-01-18] MEDS: MAG HYDROX/ALH/SMC/DPHA/LIDO 240 ML MOUTHWASH MM SCH ×5 (00:18→23:42)
[2017-01-18] MEDS: INSULIN SLIDING SCALE (NOVOLOG) 1 VIAL SQ SCH ×5 (01:48→17:09)
[2017-01-18] MEDS: methylPREDNISolone NA SUCC 40 MG/1 ML VIAL IVPB SCH ×3 (01:49→17:10)
[2017-01-18] MEDS: FUROSEMIDE 40 MG/4 ML INJECTABLE VIAL IVPB SCH ×2 (06:32→14:55)
[2017-01-18] MEDS: INSULIN DETEMIR 100 UNITS/ML MDV SQ SCH ×2 (06:43→22:21)
[2017-01-18] MEDS: HEPARIN NA (PORCINE) 5,000 UNITS/ML 1ML VIAL SQ SCH ×2 (09:41→22:22)
[2017-01-18] MEDS: ASPIRIN 300 MG SUPP.RECT RC SCH (09:41)
[2017-01-18] MEDS: NYSTATIN 100,000 UNIT/GM TOPICAL CREAM 15 GM TUBE TP SCH ×2 (09:42→22:22)
[2017-01-18] MEDS: PANTOPRAZOLE SODIUM 40MG/100 ML IVPB SCH (09:42)
[2017-01-18] MEDS: POLYETHYLENE GLYCOL 3350 119 GM BTL PO SCH (09:42)
[2017-01-18] MEDS: COLLAGENASE CLOSTRIDIUM HIST. 30 GRAMS TUBE TP SCH (09:43)
[2017-01-18] MEDS: CEFTRIAXONE 100 ML IVPB SCH (09:43)
[2017-01-18] MEDS: AZITHROMYCIN IVPB 250 ML IVPB SCH (09:44)
[2017-01-18] MEDS: SILVER SULFADIAZINE 1% TOP CREAM 50 GM JAR TP SCH ×2 (09:44→22:23)
[2017-01-18] MEDS: AMINO ACIDS 4.25%/D5W 1,000 ML IV SCH (10:07)
--- NOTE | 2017-01-18 17:53 | PN ---
Physical Exam: SUBJECTIVE: Patient seen and examined at bed side this morning. Patient didn't really want to talk today as he was short of breath. at bed side. She mentioned that since yesterday patient started having hallucination, he told his he wants to go [place] where his parents are and his son. Overnight he was given 1mg of Ativan which helped him sleep last night. OBJECTIVE: Vital Signs Period Temp Pulse Resp BP Sys/Blanca Pulse Ox Last 24 Hr 96.9 F-98 F 76-94 20-22 101-152/48-83 95-98 GENERAL: Elderly male, lying in bed, in mild respiratory distress. Currie catheter in place. HEAD: Normal with no signs of trauma. EYES: EOM intact, no pallor or icterus. ENT: Ears normal, moist mucous membranes. NECK: Trachea midline, full range of motion, supple. LUNGS: Accessory muscle use +, labored breathing, Breath sounds decreased bilaterally at the bases, no wheeze. HEART: Regular rate and rhythm, S1, S2 with systolic murmur. ABDOMEN: Soft, nontender, nondistended, normoactive bowel sounds, no guarding, no rebound, no hepatosplenomegaly, no masses. EXTREMITIES: 2+ pulses, warm, well-perfused, no edema. Dressing applied over the wound on the right ankle. NEUROLOGICAL: No facial droop, Bulk/tone normal, power/CN-unable to assess because of respiratory distress. Normal speech but cannot speak a full sentence due to sob, gait not observed. PSYCH: Normal mood, normal affect. SKIN: Warm, dry, normal turgor, no rashes or lesions noted Laboratory Results - last 24 hr 01/17/17 01/18/17 01/18/17 21:55 05:12 12:16 POC Glucometer 153 128 176 01/18/17 17:08 POC Glucometer 226 Active Medications Generic Name Dose Route Start Last Admin Trade Name Freq PRN Reason Stop Dose Admin Acetaminophen 650 mg 01/06/17 15:40 01/11/17 20:57 Tylenol - PO 650 mg Q6H PRN Administration FEVER OR PAIN Aspirin 300 mg 01/13/17 10:00 01/18/17 09:41 Asa - RC 300 mg DAILY JONAS Administration Collagenase 1 applic 01/07/17 10:00 01/18/17 09:43 Santyl - TP 1 applic DAILY JONAS Administration Diphenhydramine HCl 25 mg 01/17/17 13:47 01/17/17 14:58 Benadryl Injection - IVPB 25 mg Q8H PRN Administration FOR ITCHING Furosemide 40 mg 01/15/17 06:00 01/18/17 14:55 Lasix Injection - IVPB 40 mg BID@0600,1400 JONAS Administration Heparin Sodium (Porcine) 5,000 unit 01/17/17 22:00 01/18/17 09:41 Heparin - SQ 5,000 unit BID JONAS Administration Pantoprazole Sodium 100 mls @ 200 mls/hr 01/14/17 10:00 01/18/17 09:42 Protonix 40mg Ivpb (Pre-Docked) IVPB 200 mls/hr DAILY JONAS Administration Azithromycin 250 mls @ 250 mls/hr 01/15/17 10:00 01/18/17 09:44 Zithromax 500mg Ivpb (Pre-Docked) IVPB 250 mls/hr DAILY JONAS Administration Ceftriaxone Sodium 100 mls @ 200 mls/hr 01/15/17 10:00 01/18/17 09:43 Rocephin 2gm Ivpb (Pre-Docked) IVPB 200 mls/hr DAILY JONAS Administration Amino Acids 1,000 mls @ 42 mls/hr 01/15/17 09:54 01/18/17 10:07 Clinimix - IV 42 mls/hr Q24H JONAS Administration Insulin Aspart 1 vial 01/16/17 18:00 01/18/17 17:09 Novolog Vial Sliding Scale - SQ 5 units Q4HPO JONAS Administration Protocol Insulin Detemir 7.5 units 01/13/17 12:24 01/17/17 21:59 Levemir Vial SQ Not Given HS JONAS Insulin Detemir 35 units 01/17/17 07:00 01/18/17 06:43 Levemir Vial SQ Not Given AM JONAS Lidocaine/Aluminum/Magnesium/Simeth 5 ml 01/06/17 18:00 01/18/17 17:10 Magic Mouthwash *Sjr Formula* - MM 5 ml Q6HPO JONAS Administration Methylprednisolone Sodium Succinate 40 mg 01/17/17 13:22 01/18/17 17:10 Solu-Medrol - IVPB 40 mg Q8H-IV JONAS Administration Nystatin 1 applic 01/06/17 22:00 01/18/17 09:42 Mycostatin Cream - TP 1 applic BID JONAS Administration Scopolamine HBr 1 patch 01/10/17 17:00 01/16/17 17:34 Transderm-Scop - TD 1 patch Q72H JONAS Administration Silver Sulfadiazine 1 applic 01/06/17 22:00 01/18/17 09:44 Silvadene - TP 1 applic BID JONAS Administration Sodium Chloride 2 spray 01/10/17 12:02 01/13/17 23:25 [place] Nasal [place] - NS 2 sprays TID PRN Administration NASAL CONGESTION ASSESSMENT/PLAN: Patient is a 81-year-old man with a significant past medical history of diabetes mellitus, coronary artery disease status post CABG, benign prostate hyperplasia who was recently admitted at [facility] in July for Pneumonia, now in [facility] for physical therapy who presented to the emergency department via EMS for further evaluation of respiratory distress. # Acute hypoxic respiratory failure likely secondary to ILD and pneumonia Added IV Ceftriaxone 2gm Daily and IV Azithromycin 500mg Daily-Day 4, sob improving with addition of antibiotics Continue Oxygen @ 2L (Maintain saturation > 90 %-95%), Bipap as needed. Changed to Solumedrol 40mg IV Q8H Guaifenesis DM 10mg PO Q6H Mucomist Neb and Albuterol Q4H discontinued as patient says he gets nauseous. IV Morphine 1mg HS PRN (Discussed with the patient and his , they don't want it) Benadryl 25mg IV Q8H PRN # Diabetes Mellitus Insulin sliding scale Finger stick glucose monitoring Continue Levemir 7.5 u sq HS and Levemir changed to 35 U sq AM Endocrinology consult appreciated # Afib converted into NSR. # CAD s/p CABG Continue [place] Aspirin 300mg Daily # Constipation Refusing to take Miralax. # Tinea pedis Nystatin creatm TP BID # Ulcer in the right lateral malleolus Collagenase TP Daily # FEN IV Clinimix 42 mls/hr Electrolytes to be repeated tomorrow Puree diet, thinned out with soup. # Prophylaxis For DVT: On Heparin 5000 U sq For GI: On IV Pantoprazole 40mg BID Daily # Code Status: DNR/DNI HOSPICE CARE, confirmed. Illness, Investigation and Plan of care explained to the patient and his . They verbalized understanding. Case discussed with Dr. Prather. Visit type - Emergency Visit Emergency Visit: Yes ED Registration Date: 12/16/16 Care time: The patient presented to the Emergency Department on the above date and was hospitalized for further evaluation of their emergent condition. - New Patient This patient is new to me today: No - Critical Care Critical Care patient: No - Discharge Referral Referred to [facility] No
--- NOTE | 2017-01-18 19:04 | PN ---
Teaching Attending Note Name of Resident: Kassandra Crawley ATTENDING PHYSICIAN STATEMENT I saw and evaluated the patient. I reviewed the resident's note and discussed the case with the resident. I agree with the resident's findings and plan as documented. SUBJECTIVE: has SOB . limited interaction with MD . OBJECTIVE: NAD , lethargic but arousable. looks fatigued CV: RRR Lungs : b/l generalized fine crackles . no wheezing Abd :soft, NT, ND , NL BS Ext : R lateral malleolus ulcer with eschar ASSESSMENT AND PLAN: 81 y/o gentleman with h/o DM II , CAD , s/p CABG , recent admission for PNA , interstitial lung disease , who presented with worsening SOB and was found to have acute resp failure 1- Acute resp failure: due to ILD , with possible PNA . - pt and family refusing BIPAP - cont lasix - cont cont steroids - refused mucomyst - refused morfine for comfort - refusing Ativan - cont Abx 2- h/o A fib : cont on IV BB . not on AC 3- DM : cont levemir BID . BGM is being done q 4h and family has been refusing SSI coverage . will change BGM to BID Goals of care: discussed with in details the goals of care. She wants hospice ( signed for 14 days from the 01/12) . She still wants labs , and complete medical management in mean time, although it was explained to her that hospice means comfort . will ask palliative care to explain to family again .
[2017-01-19] MEDS: methylPREDNISolone NA SUCC 40 MG/1 ML VIAL IVPB SCH ×2 (01:58→09:41)
[2017-01-19] MEDS: FUROSEMIDE 40 MG/4 ML INJECTABLE VIAL IVPB SCH (06:14)
[2017-01-19] MEDS: INSULIN DETEMIR 100 UNITS/ML MDV SQ SCH ×2 (06:15→22:05)
[2017-01-19] MEDS: MAG HYDROX/ALH/SMC/DPHA/LIDO 240 ML MOUTHWASH MM SCH (06:15)
[2017-01-19] MEDS: INSULIN SLIDING SCALE (NOVOLOG) 1 VIAL SQ SCH ×2 (06:22→17:26)
[2017-01-19] MEDS ORDERED: INSULIN SLIDING SCALE (NOVOLOG) 1 VIAL SQ SCH (07:00)
[2017-01-19 08:02] LABS: ANION GAP 14 (8-16); CALCIUM 8.1 mg/dL (8.5-10.1); CO2 31 mmol/L (21-32); CREATININE 1.5 mg/dL (0.7-1.3); GLUCOSE,RANDOM 217 mg/dL (74-106); MAGNESIUM 2.1 mg/dL (1.8-2.4)
[2017-01-19] MEDS: ASPIRIN 300 MG SUPP.RECT RC SCH (09:37)
[2017-01-19] MEDS: HEPARIN NA (PORCINE) 5,000 UNITS/ML 1ML VIAL SQ SCH (09:39)
[2017-01-19] MEDS: NYSTATIN 100,000 UNIT/GM TOPICAL CREAM 15 GM TUBE TP SCH (09:39)
[2017-01-19] MEDS: PANTOPRAZOLE SODIUM 40MG/100 ML IVPB SCH (09:39)
[2017-01-19] MEDS: COLLAGENASE CLOSTRIDIUM HIST. 30 GRAMS TUBE TP SCH (09:40)
[2017-01-19] MEDS: CEFTRIAXONE 100 ML IVPB SCH (09:40)
[2017-01-19] MEDS: SILVER SULFADIAZINE 1% TOP CREAM 50 GM JAR TP SCH (09:41)
[2017-01-19] MEDS: AZITHROMYCIN IVPB 250 ML IVPB SCH (09:41)
[2017-01-19] MEDS ORDERED: morphine CARPU-JECT 2 MG/1 ML DISP.SYRIN IVPUSH PRN ×2 (10:14→12:37)
[2017-01-19] MEDS: AMINO ACIDS 4.25%/D5W 1,000 ML IV SCH (11:53)
[2017-01-19] MEDS: SCOPOLAMINE HYDROBROMIDE 1 PATCH PATCH.TD72 TD SCH (17:26)
--- NOTE | 2017-01-19 17:50 | PN ---
Teaching Attending Note Name of Resident: Kassandra Crawley ATTENDING PHYSICIAN STATEMENT I saw and evaluated the patient. I reviewed the resident's note and discussed the case with the resident. I agree with the resident's findings and plan as documented. SUBJECTIVE: unable to obtain hx. per less responsive today OBJECTIVE: NAD , lethargic . less arousable CV: RRR Lungs: b/l generalized fine crackles . no wheezing Abd :soft, NT, ND , NL BS Ext : R lateral malleolus ulcer with eschar ASSESSMENT AND PLAN: 81 y/o gentleman with h/o DM II , CAD , s/p CABG , recent admission for PNA , interstitial lung disease , who presented with worsening SOB and was found to have acute resp failure 1- Acute resp failure: due to ILD , with possible PNA . 2- h/o A fib 3- DM 4- h/o Heart failure 5- hypotension Plan : - Hospice care - hypotensive, hold diuresis . hold off BP checks , d/w - d/c pulse ox - d/c asa , PPI ,steroids and other meds which will not contribute to comfort - face mask - morphine if needed for distress - refused ativan - scopolamine - expressed wishes to have him pass comfortably. with no aggressive managements - cont insulin poor prognosis
--- NOTE | 2017-01-19 18:03 | PN ---
Physical Exam: SUBJECTIVE: Patient seen and examined at bed side this morning. Patient is not doing well. Can barely speak today. at bed side. She mentioned that he is still hallucinating, told her he will meet Ramses in 3 days. OBJECTIVE: Vital Signs Period Temp Pulse Resp BP Sys/Blanca Pulse Ox Last 24 Hr 96.8 F-98.2 F 98-104 22-26 70-128/40-62 88-95 GENERAL: Elderly male, lying in bed, in mild respiratory distress. K[place] catheter in place. HEAD: Normal with no signs of trauma. EYES: EOM intact, no pallor or icterus. ENT: Ears normal, moist mucous membranes. NECK: Trachea midline, full range of motion, supple. LUNGS: Accessory muscle use +, labored breathing, Breath sounds decreased bilaterally at the bases, no wheeze. HEART: Regular rate and rhythm, S1, S2 with systolic murmur. ABDOMEN: Soft, distended, normoactive bowel sounds, no guarding, no rebound, no hepatosplenomegaly, no masses. EXTREMITIES: 2+ pulses, warm, well-perfused, no edema. Dressing applied over the wound on the right ankle. NEUROLOGICAL: No facial droop, Bulk/tone normal, power/CN-unable to assess because of respiratory distress. Normal speech but cannot speak a full sentence due to sob, gait not observed. PSYCH: Normal mood, normal affect. SKIN: Warm, dry, normal turgor, no rashes or lesions noted Laboratory Results - last 24 hr 12/26/16 01/19/17 01/19/17 12:20 05:21 05:37 Sodium 143 Potassium 3.1 L Chloride 98 Carbon Dioxide 31 Anion Gap 14 BUN 89 H Creatinine 1.5 H D POC Glucometer 218 Random Glucose 217 H Calcium 8.1 L Magnesium 2.1 Coccidioides G,A,M Ab Active Medications Generic Name Dose Route Start Last Admin Trade Name Freq PRN Reason Stop Dose Admin Diphenhydramine HCl 25 mg 01/17/17 13:47 01/18/17 22:45 Benadryl Injection - IVPB 25 mg Q8H PRN Administration FOR ITCHING Insulin Aspart 1 vial 01/19/17 07:00 01/19/17 17:26 Novolog Vial Sliding Scale - SQ Not Given BIDAC [facility] Protocol Insulin Detemir 7.5 units 01/13/17 12:24 06/28/17 22:21 Levemir Vial SQ Not Given HS JONAS Insulin Detemir 35 units 01/17/17 07:00 01/19/17 06:15 Levemir Vial SQ Not Given AM JONAS Morphine Sulfate 1 mg 01/19/17 12:37 Morphine Injection - IVPUSH Q2H PRN PAIN Scopolamine HBr 1 patch 01/10/17 17:00 01/19/17 17:26 Transderm-Scop - TD Not Given Q72H JONAS Sodium Chloride 2 spray 01/10/17 12:02 01/13/17 23:25 [place] Nasal [place] - NS 2 sprays TID PRN Administration NASAL CONGESTION ASSESSMENT/PLAN: Patient is a 81-year-old man with a significant past medical history of diabetes mellitus, coronary artery disease status post CABG, benign prostate hyperplasia who was recently admitted at [facility] in July for Pneumonia, now in [facility] for physical therapy who presented to the emergency department via EMS for further evaluation of respiratory distress. HOSPICE CARE. # Acute hypoxic respiratory failure likely secondary to ILD and pneumonia. Discontinued antibiotics, nebulization. On oxygen-non rebreather # Hypotensive Not on any IV fluids as discussed. No more BP checks # Abdominal distention-could be due to urinary retention Bladder scan to be done. If it is > 450mls then kern to be placed, its a part of comfort care. # Diabetes Mellitus Continue Levemir 7.5 u sq HS and Levemir changed to 35 U sq AM. Insulin sliding scale discontinued # Afib converted into NSR. # CAD s/p CABG. Discontinued [place] Aspirin 300mg Daily # Tinea pedis Nystatin creatm TP BID # Ulcer in the right lateral malleolus Collagenase TP Daily # Fluids/Electrolytes IV Clinimix discontinued No labs to be drawn # Code Status: DNR/DNI HOSPICE CARE, confirmed. Illness, Investigation and Plan of care explained to the patient and his . They verbalized understanding. Case discussed with Dr. Prather. Visit type - Emergency Visit Emergency Visit: Yes ED Registration Date: 12/16/16 Care time: The patient presented to the Emergency Department on the above date and was hospitalized for further evaluation of their emergent condition. - New Patient This patient is new to me today: No - Critical Care Critical Care patient: No - Discharge Referral Referred to [facility] No
[2017-01-19 20:08] VITALS: BP 57/33; PULSE 99; TEMP 101.4
--- NOTE | 2017-01-20 00:21 | HOSP ---
Subjective - Review of Symptoms Events since last encounter: Paged as pt was unresponsive. Pt with pupils fixed and dilated, no heart sounds , no breath sounds, not arousable to vocal or physical stimuli, and no peripheral pulses palpated. Pt pronounced at 23:37. Pt's and 2 [id number] present at bedside and notified of . Hospitalist to be notified of by me. Physical Examination Vital Signs: Vital Signs Temperature 101.4 F H 01/19/17 17:00 Pulse Rate 99 H 01/19/17 17:00 Respiratory Rate 20 01/19/17 17:00 Blood Pressure 57/33 01/19/17 17:00 O2 Sat by Pulse Oximetry (%) 88 L 01/19/17 10:52 Labs: CBC, BMP 01/16/17 05:57 01/19/17 05:37 Visit type - Emergency Visit Emergency Visit: Yes ED Registration Date: 12/16/16 Care time: The patient presented to the Emergency Department on the above date and was hospitalized for further evaluation of their emergent condition. - New Patient This patient is new to me today: Yes Date on this admission: 01/21/17 - Critical Care Critical Care patient: No
== END 2017-01-19 23:37 | disposition expired | DRG 871 ==
LOC: JER 11:25 → JERBED 13:35 → J4W 17:50 → JICU 01-02 17:10 → J4W 01-06 21:14
PROVIDERS: ADMIT Internal Medicine; ATTEND Internal Medicine
PROC: 5A09557 Assistance with Respiratory Ventilation, Greater than 96 Consecutive Hours, Continuous Positive Airway Pressure (ICD-10-PCS; principal; 2016-12-16)
PROC: 3E0F7GC Introduction of Other Therapeutic Substance into Respiratory Tract, Via Natural or Artificial Opening (ICD-10-PCS; 2016-12-16)
PROC: 0WJ83ZZ Inspection of Chest Wall, Percutaneous Approach (ICD-10-PCS; 2017-01-02)
DX: A41.9 Sepsis, unspecified organism (principal); J18.9 Pneumonia, unspecified organism; G93.41 Metabolic encephalopathy; I50.23 Acute on chronic systolic (congestive) heart failure; J96.01 Acute respiratory failure with hypoxia; J44.0 Chronic obstructive pulmonary disease with (acute) lower respiratory infection; E87.2 Acidosis; I13.0 Hypertensive heart and chronic kidney disease with heart failure and stage 1 through stage 4 chronic kidney disease, or unspecified chronic kidney disease; J44.1 Chronic obstructive pulmonary disease with (acute) exacerbation; J84.9 Interstitial pulmonary disease, unspecified; E46 Unspecified protein-calorie malnutrition; J93.83 Other pneumothorax; I25.10 Atherosclerotic heart disease of native coronary artery without angina pectoris; Z95.5 Presence of coronary angioplasty implant and graft; Z95.1 Presence of aortocoronary bypass graft; N40.0 Benign prostatic hyperplasia without lower urinary tract symptoms; Z87.01 Personal history of pneumonia (recurrent); D72.829 Elevated white blood cell count, unspecified; I73.9 Peripheral vascular disease, unspecified; E11.22 Type 2 diabetes mellitus with diabetic chronic kidney disease; E11.610 Type 2 diabetes mellitus with diabetic neuropathic arthropathy; E11.65 Type 2 diabetes mellitus with hyperglycemia; Z66 Do not resuscitate; M62.81 Muscle weakness (generalized); E11.621 Type 2 diabetes mellitus with foot ulcer; L97.519 Non-pressure chronic ulcer of other part of right foot with unspecified severity; N18.3 Chronic kidney disease, stage 3 (moderate); F41.9 Anxiety disorder, unspecified; R06.00 Dyspnea, unspecified; G47.30 Sleep apnea, unspecified; R93.8 Abnormal findings on diagnostic imaging of other specified body structures; J98.2 Interstitial emphysema
CPT/HCPCS: 32557; 36415; 36600; 71010-TC; 71250-TC; 77012-TC; 80048; 80053; 80076; 81003; 81015; 82550; 82565; 82570; 82803; 82947; 83036; 83520; 83605; 83615; 83735; 83880; 84100; 84484; 84520; 85025; 85027; 85610; 85651; 85730; 86038; 86140; 86256; 86480; 86635; 86850; 86900; 86901; 87040; 87070; 87077; 87086; 87205; 87305; 87389; 87449; 87899; 93005; 93010; 93306-TC; 93970-TC; 94640; 94660; 97116-GP; 97161-GP; 99283-25; C1769; J1644